=== PATIENT | male | born 1960 | race Caucasian/White ===

== ENCOUNTER 2022-08-18 11:16 | Emergency (ER) | payer MEDICARE, MEDICAID, SELFPAY ==
[2022-08-18 11:28] VITALS: BP 143/78; PULSE 110; RESP 15; TEMP 37.2; O2SAT 93; BMI 37.6
--- NOTE | 2022-08-18 11:58 | XRR_ITS ---
PROCEDURE INFORMATION: Exam: XR Chest Exam date and time: 08/18/2022 12:32 PM Age: 61 years old Clinical indication: Cough and dyspnea; Additional info: Dyspnea/cough TECHNIQUE: Imaging protocol: Radiologic exam of the chest. Views: 1 view. COMPARISON: No relevant prior studies available. FINDINGS: Tubes, catheters and devices: Single lead pacemaker. Lungs: Unremarkable. No consolidation. Pleural spaces: Costophrenic angles are not well seen secondary to a large amount of overlying soft tissue in this patient and pleural effusions can not be excluded. Heart/Mediastinum: Unremarkable. No cardiomegaly. Bones/joints: Unremarkable. XR/XR chest 1V portable [id number] IMPRESSION: No evidence for acute cardiopulmonary disease.
[2022-08-18 12:34] VITALS: BP 114/82; PULSE 107; O2SAT 96
--- NOTE | 2022-08-18 12:43 | W.ED.MALEGU ---
HPI - Male Genitourinary General: Chief complaint: Urogenital-Male Stated complaint: Covid Exposure, N/V, Abd pain Time Seen by Provider: 08/18/22 11:58 Source: patient Mode of arrival: ambulatory History of Present Illness: 59-year-old male presents emergency room with difficulty urinating. This been going on for the last 2 days difficulty starting urine difficulty seeing his bladder with some dysuria as well. No fever sweats chills no hematuria. Incidentally patient also recently was exposed to COVID he has not had any cough or shortness of breath no anosmia. MD Complaint: dysuria Onset (ago): day(s) (2) Duration: constant Severity: moderate Relieving factors: none Exacerbating factors: none Associated symptoms: Deny discharge, dysuria, fevers/chills, hematuria, nausea, rash, swelling, urinary incontinence, urinary retention, mass or vomiting Review of Systems Const: Denies: fever(s), chills, body aches, change in appetite, fatigue or malaise ENMT: Denies: throat pain, ear or mastoid pain, nasal discharge or nasal congestion Card: Denies: chest pain, edema, dyspnea on exertion or orthopnea Resp: Denies: dyspnea, productive cough or non-productive cough GI: Denies: nausea or vomiting : Denies: dysuria, urinary incontinence or hematuria Skin/Breast: Denies: rash or pruritus PFSH ED PFSH: Medical History Anticoagulation adequate with anticoagulant therapy Cardiomyopathy CHF (congestive heart failure) Diabetes DVT (deep venous thrombosis) Dyslipidemia NAKUL (obstructive sleep apnea) Surgical History S/P ICD (internal cardiac defibrillator) procedure Family History Father Stroke CAD (coronary artery disease) Sister Stroke Brother Stroke Other Hypertension Social History Smoking and tobacco status: never smoked Alcohol intake: never Substance/Drug Use: never Physical Exam Const: GENERAL APPEARANCE: cooperative and comfortable ORIENTATION/CONSCIOUSNESS: Yes awake, Yes oriented to person, Yes oriented to place and Yes oriented to time HENMT: COMMON NORMALS: normocephalic, atraumatic and hearing grossly normal bilaterally HEAD & SCALP: normocephalic and atraumatic Resp: COMMON NORMALS: normal respiratory effort, No retractions, No use of accessory muscles and clear to auscultation bilaterally AUSCULTATION: clear to auscultation bilaterally Cardio: COMMON NORMALS: regular rate, regular rhythm and No murmurs present (Cardio) RATE: regular rate RHYTHM: regular rhythm GI: COMMON NORMALS: Soft to palpation and No hepatosplenomegaly present AUSCULTATION: Yes normoactive bowel sounds PALPATION: Yes Soft to palpation, No Tenderness to palpation present (GI), No Guarding due to palpation present (GI) and Yes No hepatosplenomegaly present Extremity: COMMON NORMALS: normal to inspection, capillary refill normal, no clubbing, cyanosis or edema, no calf tenderness and no pedal edema Neuro: SENSORIUM/ORIENTATION: Yes oriented to person, Yes oriented to place and Yes oriented to time Skin: COMMON NORMALS: no rashes or lesions noted GENERAL SKIN EXAM: no rashes or lesions noted Course Vital Signs: Vital signs: Vital Signs Temperature 99.0 F 08/18/22 11:28 Pulse Rate 105 H 08/18/22 13:58 Respiratory Rate 15 08/18/22 11:28 Blood Pressure 162/81 08/18/22 13:58 Pulse Oximetry 91 08/18/22 13:58 Oxygen Delivery Me thod Room Air 08/18/22 11:28 MDM - Male Medical Decision Making Cystitis. No respiratory compromise discharge home and follow-up with COVID results when available start on Bactrim DS twice daily for 10 days Medical Records I reviewed the patient's medical records. Lab Data I reviewed the patient's lab results. 08/18/22 12:52 08/18/22 12:52 Radiology Impressions Chest X-Ray 08/18/22 11:58 IMPRESSION: No evidence for acute cardiopulmonary disease. Laboratory Results WBC 18.1 10^3/uL (4.0-10.0) H 08/18/22 12:52 RBC 5.04 10^6/uL (4.1-5.3) 08/18/22 12:52 Hgb 13.9 g/dL (11.7-16.6) 08/18/22 12:52 Hct 43.8 % (42.0-52.0) 08/18/22 12:52 MCV 86.9 fl (80-94) 08/18/22 12:52 MCH 27.6 pg (28.0-34.0) L 08/18/22 12:52 MCHC 31.7 g/dL (30.0-36.0) 08/18/22 12:52 RDW 15.1 % (12.1-15.1) 08/18/22 12:52 Plt Count 153 10^3/cmm (130-400) 08/18/22 12:52 MPV 10.3 fL (7.4-10.4) 08/18/22 12:52 Neut % (Auto) 82.6 % 08/18/22 12:52 Lymph % (Auto) 6.5 % 08/18/22 12:52 [place] % (Auto) 10.1 % 08/18/22 12:52 Eos % (Auto) 0.0 % 08/18/22 12:52 Baso % (Auto) 0.2 % 08/18/22 12:52 Neut # (Auto) 14.96 10^3/uL (1.8-7.7) H 08/18/22 12:52 Lymph # (Auto) 1.2 10^3/uL (0.8-4.8) 08/18/22 12:52 [place] # (Auto) 1.8 10^3/uL (0.2-0.9) H 08/18/22 12:52 Eos # (Auto) 0.0 10^3/uL (0.0-0.8) 08/18/22 12:52 Baso # (Auto) 0.0 10^3/uL (0.0-0.1) 08/18/22 12:52 Nucleated RBC % (auto) 0 % 08/18/22 12:52 Nucleated RBCs # 0.0 /100WBC 08/18/22 12:52 Sodium 129 mmol/L (136-145) L 08/18/22 12:52 Potassium 3.8 mmol/L (3.5-5.1) 08/18/22 12:52 Chloride 92 mmol/L (98-107) L 08/18/22 12:52 Carbon Dioxide 22 mmol/L (22-29) 08/18/22 12:52 Anion Gap 18.8 (5-19) 08/18/22 12:52 BUN 32 mg/dL (8-23) H 08/18/22 12:52 Creatinine 1.5 mg/dL (0.7-1.2) H 08/18/22 12:52 GFR Calculation 47.4 mL/min (90-130) L 08/18/22 12:52 Glucose 231 mg/dL (65-115) H 08/18/22 12:52 Calculated Osmolality 282 mOsm/kg (285-295) L 08/18/22 12:52 Calcium 9.8 mg/dL (8.5-10.5) 08/18/22 12:52 Urine Color Yellow (Yellow) 08/18/22 12:15 Urine Appearance Hazy (CLEAR) A 08/18/22 12:15 Urine pH 5 (5-7) 08/18/22 12:15 Ur Specific [place] 1.010 (1.005-1.030) 08/18/22 12:15 Urine Protein 2+ (Negative) H 08/18/22 12:15 Urine Glucose (UA) 4+ (Normal) H 08/18/22 12:15 Urine Ketones 1+ (Negative) H 08/18/22 12:15 Urine Blood 3+ (Negative) H 08/18/22 12:15 Urine Nitrate Negative (Negative) 08/18/22 12:15 Urine Bilirubin Neg (Negative) 08/18/22 12:15 Urine Urobilinogen Norm mg/dL (Negative) 08/18/22 12:15 Ur Leukocyte Esterase 1+ (Negative) H 08/18/22 12:15 Urine RBC 10-15 /hpf (0-2) H 08/18/22 12:15 Urine WBC 40-55 /hpf (0-5) H 08/18/22 12:15 Ur Squamous Epith Cells 5-10 /hpf (0-5) H 08/18/22 12:15 Amorphous Sediment Not Reportable 08/18/22 12:15 Urine Bacteria 2+ /hpf (NONE) H 08/18/22 12:15 Discharge Plan Discharge Patient Disposition: Home Clinical Impression: Cystitis Condition: Stable Prescriptions: New Bactrim DS 800-160 mg tablet 1 tab PO BID 10 Days Qty: 20 0RF No Action Jardiance 25 mg tablet 25 mg PO DAILY insulin aspart U-100 [Novolog U-100 Insulin aspart] 100 unit/mL solution 60 unit SUBCUT TID Tresiba U-100 Insulin 100 unit/mL solution 100 unit SUBCUT DAILY Trulicity 1.5 mg/0.5 mL pen injector 1.5 mg SUBCUT .WEEKLY atorvastatin 40 mg tablet 40 mg PO DAILY spironolactone 25 mg tablet 25 mg PO DAILY citalopram 20 mg tablet 20 mg PO DAILY allopurinol 100 mg tablet 100 mg PO DAILY Xarelto 20 mg tablet 20 mg PO DAILY terazosin 1 mg capsule 1 mg PO DAILY furosemide 40 mg tablet 80 mg PO DAILY Entresto 97-103 mg tablet 1 tab PO BID Qty: 120 2RF Discharge Orders: Discharge ED (Routine); Ordered 08/18/22 Ordered By: Anthony Lau Referrals: Rochelle Rodriges MD [Primary Care Provider] - Discharge Diet: Usual diet Discharge Activity: Resume usual activity Patient Instructions: Urinary Tract Infection in Men (ED), Opioid Safety, Pain Management Coding Level of Care Code 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
[2022-08-18 12:50] LABS: Add Urine Microscopic? YES; Bilirubin Urine Neg (Negative); Blood Urine 3+ (Negative); Glucose Urine UA 4+ (Normal); Ketones Urine 1+ (Negative); Leukocyte Esterase Urine 1+ (Negative); Nitrate Urine Negative (Negative); Protein Urine 2+ (Negative); Urine Appearance Hazy (CLEAR); Urine Color Yellow (Yellow); Urobilinogen Urine Norm (Negative); pH Urine 5 (5-7)
[2022-08-18 12:52] LABS: WBC Urine 40-55 /hpf (0-5)
[2022-08-18 12:54] LABS: Add Urine Culture? Yes; Bacteria Urine 2+ /hpf
[2022-08-18 13:02] LABS: Basophils % 0.2 %; Hematocrit 43.8 % (42.0-52.0); Hemoglobin 13.9 g/dL (11.7-16.6); Lymphocytes # 1.2 10^3/uL (0.8-4.8); Lymphocytes % 6.5 %; Mean Corpuscular HGB Conc 31.7 g/dL (30.0-36.0); Mean Corpuscular Hemoglobin 27.6 pg (28.0-34.0); Mean Corpuscular Volume 86.9 fl (80-94); Mean Platelet Volume 10.3 fL (7.4-10.4); Monocytes # 1.8 10^3/uL (0.2-0.9); Monocytes % 10.1 %; Neutrophils # 14.96 10^3/uL (1.8-7.7); Neutrophils % 82.6 %; Nucleated Red Blood Cells % 0 %; Platelet Count 153 10^3/cmm (130-400); Red Blood Count 5.04 10^6/uL (4.1-5.3); Red Cell Distribution Width 15.1 % (12.1-15.1); White Blood Count 18.1 10^3/uL (4.0-10.0)
[2022-08-18 13:03] VITALS: BP 131/71; PULSE 103; O2SAT 91
[2022-08-18] MEDS: cefTRIAXone 1,000 MG in sodium chloride 0.9% (plus) 50 ML 100 MG IV (13:12)
[2022-08-18 13:21] LABS: Anion Gap 18.8 (5-19); Blood Urea Nitrogen 32 mg/dL (8-23); Calcium 9.8 mg/dL (8.5-10.5); Carbon Dioxide 22 mmol/L (22-29); Chloride 92 mmol/L (98-107); Glomerular Filtration Rate 47.4 mL/min (90-130); Glucose 231 mg/dL (65-115); Osmolality Calculated 282 mOsm/kg (285-295); Potassium 3.8 mmol/L (3.5-5.1); Sodium 129 mmol/L (136-145)
[2022-08-18 13:58] VITALS: BP 162/81; PULSE 105; O2SAT 91
[2022-08-18 14:19] LABS: Adenovirus Not Detected (NOT DETECT); Chlamydia Pneumoniae Not Detected (NOT DETECT); Coronavirus 229E,HKU1,NL63,OC4 Not Detected (NOT DETECT); Human Metapneumovirus Not Detected (NOT DETECT); Human Rhinovirus/Enterovirus Not Detected (NOT DETECT); Influenza A Not Detected (NOT DETECT); Influenza A H1 Not Detected (NOT DETECT); Influenza A H1-2009 Not Detected (NOT DETECT); Influenza A H3 Not Detected (NOT DETECT); Influenza B Not Detected (NOT DETECT); Mycoplasma Pneumoniae Not Detected (NOT DETECT); Parainfluenza Virus Type 1 Not Detected (NOT DETECT); Parainfluenza Virus Type 2 Not Detected (NOT DETECT); Parainfluenza Virus Type 3 Not Detected (NOT DETECT); Parainfluenza Virus Type 4 Not Detected (NOT DETECT); Respiratory Syncytial Virus A Not Detected (NOT DETECT); Respiratory Syncytial Virus B Not Detected (NOT DETECT); SARS-COV-2 Not Detected (NOT DETECT)
== END 2022-08-18 14:00 | disposition home or self-care (01) ==
PROVIDERS: Emergency Provider Family Medicine; PCP Internal Medicine
DX: N30.90 Cystitis, unspecified without hematuria (principal); Z79.4 Long term (current) use of insulin; Z79.85 Long-term (current) use of injectable non-insulin antidiabetic drugs; I50.9 Heart failure, unspecified; E11.9 Type 2 diabetes mellitus without complications; E78.5 Hyperlipidemia, unspecified; Z20.822 Contact with and (suspected) exposure to COVID-19
CPT/HCPCS: 36415; 51798; 71045; 80048; 81001; 85025; 87077; 87086; 87186; 87635; 96365; 99284; J0696

== ENCOUNTER 2022-08-22 06:46 | Emergency (ER) | payer MEDICARE, MEDICAID, SELFPAY ==
[2022-08-22 06:55] VITALS: BP 111/77; PULSE 66; RESP 17; TEMP 36.7; O2SAT 98; BMI 37.6
--- NOTE | 2022-08-22 06:59 | W.ED.GENADLT ---
HPI - General Adult General: Chief complaint: Urogenital-Male Stated complaint: kidney pain Time Seen by Provider: 08/22/22 06:47 Source: patient Mode of arrival: ambulatory History of Present Illness: 59-year-old male presents emergency room with complaints of difficulty with urination and urinary dribbling. Does not feel like he can empty his bladder completely was him several days ago use found to have a UTI and he was started on Bactrim culture report came back and it is resistant to Bactrim. Patient states he has dysuria urgency and frequency with dribbling with small amounts of urine. No hematuria no fever Onset (ago): day(s) Relieving factors: none Exacerbating factors: none Associated symptoms: Deny chest pain, confusion, cough, diaphoresis, decreased appetite, dyspnea, fevers/chills, headache(s), malaise, nausea, rash, palpitations, seizures, short of breath, syncope, vomiting or weakness Treatments prior to arrival: none Review of Systems Const: Denies: fever(s), chills, malaise or diaphoresis ENMT: Denies: throat pain, ear or mastoid pain, nasal discharge or nasal congestion Card: Denies: chest pain, palpitations or syncope Resp: Denies: dyspnea GI: Denies: abdominal pain, nausea or vomiting : Reports: dysuria, urinary frequency and urinary urgency; Denies: flank pain Skin/Breast: Denies: rash Neuro: Denies: headache(s) or confusion PFS ED PFSH: Medical History Anticoagulation adequate with anticoagulant therapy Cardiomyopathy CHF (congestive heart failure) Diabetes DVT (deep venous thrombosis) Dyslipidemia NAKUL (obstructive sleep apnea) Surgical History S/P ICD (internal cardiac defibrillator) procedure Family History Father Stroke CAD (coronary artery disease) Sister Stroke Brother Stroke Other Hypertension Social History Smoking and tobacco status: never smoked Alcohol intake: never Substance/Drug Use: never Physical Exam Const: GENERAL APPEARANCE: cooperative and comfortable ORIENTATION/CONSCIOUSNESS: Yes awake, Yes oriented to person, Yes oriented to place and Yes oriented to time HENMT: COMMON NORMALS: normocephalic, atraumatic and hearing grossly normal bilaterally HEAD & SCALP: normocephalic and atraumatic Resp: COMMON NORMALS: normal respiratory effort, No retractions, No use of accessory muscles and clear to auscultation bilaterally AUSCULTATION: clear to auscultation bilaterally Cardio: COMMON NORMALS: regular rate, regular rhythm and No murmurs present (Cardio) RATE: regular rate RHYTHM: regular rhythm GI: COMMON NORMALS: Soft to palpation and No hepatosplenomegaly present AUSCULTATION: Yes normoactive bowel sounds PALPATION: Yes Soft to palpation, No Tenderness to palpation present (GI), No Guarding due to palpation present (GI) and Yes No hepatosplenomegaly present Extremity: COMMON NORMALS: normal to inspection, capillary refill normal, no clubbing, cyanosis or edema, no calf tenderness and no pedal edema Neuro: SENSORIUM/ORIENTATION: Yes oriented to person, Yes oriented to place and Yes oriented to time Skin: COMMON NORMALS: no rashes or lesions noted GENERAL SKIN EXAM: no rashes or lesions noted Course Vital Signs: Vital signs: Vital Signs Temperature 98.1 F 08/22/22 06:55 Pulse Rate 97 08/22/22 10:22 Respiratory Rate 16 08/22/22 10:22 Blood Pressure 112/73 08/22/22 10:22 Pulse Oximetry 97 08/22/22 10:22 Oxygen Delivery Me thod Room Air 08/22/22 06:55 MDM - General Adult Medical Decision Making Bladder scan 820 in the bladder. A Mathew placed significant amount of output matching the bladder scan patient also had marked relief of his symptoms. We will change him to Cipro which the E. coli on the culture done previously was sensitive to. We will add tamsulosin 1 have him follow-up with his primary care doctor in a week patient discharged home with a urine leg bag if he has any worsening or change symptoms return Medical Records I reviewed the patient's medical records. Lab Data I reviewed the patient's lab results. 08/22/22 07:31 08/22/22 07:31 Laboratory Results WBC 13.5 10^3/uL (4.0-10.0) H 08/22/22 07:31 RBC 4.32 10^6/uL (4.1-5.3) 08/22/22 07:31 Hgb 12.4 g/dL (11.7-16.6) 08/22/22 07:31 Hct 37.6 % (42.0-52.0) L 08/22/22 07:31 MCV 87.0 fl (80-94) 08/22/22 07:31 MCH 28.7 pg (28.0-34.0) 08/22/22 07:31 MCHC 33.0 g/dL (30.0-36.0) 08/22/22 07:31 RDW 15.7 % (12.1-15.1) H 08/22/22 07:31 Plt Count 197 10^3/cmm (130-400) 08/22/22 07:31 MPV 10.9 fL (7.4-10.4) H 08/22/22 07:31 Neut % (Auto) 76.2 % 08/22/22 07:31 Lymph % (Auto) 11.8 % 08/22/22 07:31 [place] % (Auto) 9.0 % 08/22/22 07:31 Eos % (Auto) 0.5 % 08/22/22 07:31 Baso % (Auto) 0.3 % 08/22/22 07:31 Neut # (Auto) 10.25 10^3/uL (1.8-7.7) H 08/22/22 07:31 Lymph # (Auto) 1.6 10^3/uL (0.8-4.8) 08/22/22 07:31 [place] # (Auto) 1.2 10^3/uL (0.2-0.9) H 08/22/22 07:31 Eos # (Auto) 0.1 10^3/uL (0.0-0.8) 08/22/22 07:31 Baso # (Auto) 0.0 10^3/uL (0.0-0.1) 08/22/22 07:31 Nucleated RBC % (auto) 0 % 08/22/22 07:31 Nucleated RBCs # 0.0 /100WBC 08/22/22 07:31 Sodium 129 mmol/L (136-145) L 08/22/22 07:31 Potassium 3.2 mmol/L (3.5-5.1) L 08/22/22 07:31 Chloride 95 mmol/L (98-107) L 08/22/22 07:31 Carbon Dioxide 18 mmol/L (22-29) L 08/22/22 07:31 Anion Gap 19.2 (5-19) H 08/22/22 07:31 BUN 64 mg/dL (8-23) H 08/22/22 07:31 Creatinine 2.1 mg/dL (0.7-1.2) H 08/22/22 07:31 GFR Calculation 32.2 mL/min (90-130) L 08/22/22 07:31 Glucose 252 mg/dL (65-115) H 08/22/22 07:31 Calculated Osmolality 295 mOsm/kg (285-295) 08/22/22 07:31 Calcium 8.7 mg/dL (8.5-10.5) 08/22/22 07:31 Urine Color Yellow (Yellow) 08/22/22 08:15 Urine Appearance Clear (CLEAR) 08/22/22 08:15 Urine pH 5 (5-7) 08/22/22 08:15 Ur Specific [place] 1.010 (1.005-1.030) 08/22/22 08:15 Urine Protein Neg (Negative) 08/22/22 08:15 Urine Glucose (UA) 4+ (Normal) H 08/22/22 08:15 Urine Ketones Negative (Negative) 08/22/22 08:15 Urine Blood 3+ (Negative) H 08/22/22 08:15 Urine Nitrate Negative (Negative) 08/22/22 08:15 Urine Bilirubin Neg (Negative) 08/22/22 08:15 Urine Urobilinogen Norm mg/dL (Negative) 08/22/22 08:15 Ur Leukocyte Esterase Negative (Negative) 08/22/22 08:15 Urine RBC 15-25 /hpf (0-2) H 08/22/22 08:15 Urine WBC 0-4 /hpf (0-5) H 08/22/22 08:15 Ur Squamous Epith Cells 0-4 /hpf (0-5) H 08/22/22 08:15 Amorphous Sediment Not Reportable 08/22/22 08:15 Urine Bacteria Trace /hpf (NONE) 08/22/22 08:15 Urine Mucus None /hpf 08/22/22 08:15 Discharge Plan Discharge Patient Disposition: Home Clinical Impression: Acute retention of urine, Cystitis, Prostatitis Condition: Stable Prescriptions: New Cipro 500 mg tablet 500 mg PO BID Qty: 14 0RF tamsulosin 0.4 mg capsule 0.4 mg PO DAILY Qty: 30 0RF Discontinued sulfamethoxazole-trimethoprim [Bactrim DS] 800-160 mg tablet 1 tab PO BID 10 Days Qty: 20 0RF No Action Jardiance 25 mg tablet 25 mg PO DAILY insulin aspart U-100 [Novolog U-100 Insulin aspart] 100 unit/mL solution 60 unit SUBCUT TID Tresiba U-100 Insulin 100 unit/mL solution 100 unit SUBCUT DAILY Trulicity 1.5 mg/0.5 mL pen injector 1.5 mg SUBCUT .WEEKLY atorvastatin 40 mg tablet 40 mg PO DAILY spironolactone 25 mg tablet 25 mg PO DAILY citalopram 20 mg tablet 20 mg PO DAILY allopurinol 100 mg tablet 100 mg PO DAILY Xarelto 20 mg tablet 20 mg PO DAILY terazosin 1 mg capsule 1 mg PO DAILY furosemide 40 mg tablet 80 mg PO DAILY Entresto 97-103 mg tablet 1 tab PO BID Qty: 120 2RF Discharge Orders: Discharge ED (Routine); Ordered 08/22/22 Ordered By: Anthony Lau Referrals: Rochelle Rodriges MD [Primary Care Provider] - Discharge Diet: Usual diet Discharge Activity: Increase activity as tolerated Patient Instructions: Opioid Safety, Pain Management Activity Restrictions/Additional Instructions: You were seen today for urinary retention and cystitis. Culture from your previous visit shows the bacteria to be resistant to the Bactrim. You should stop the Bactrim and start Cipro 501 twice daily for 7 days. The culture showed the bacteria was sensitive to this. You also found of significant urinary retention. Mathew catheter was placed recommend that you start on tamsulosin alone along with your terazosin. You should recheck with your primary care doctor in approximately 1 week to evaluate for removal of Mathew. 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
[2022-08-22 07:41] LABS: Basophils % 0.3 %; Eosinophils # 0.1 10^3/uL (0.0-0.8); Eosinophils % 0.5 %; Hematocrit 37.6 % (42.0-52.0); Hemoglobin 12.4 g/dL (11.7-16.6); Lymphocytes # 1.6 10^3/uL (0.8-4.8); Lymphocytes % 11.8 %; Mean Corpuscular Hemoglobin 28.7 pg (28.0-34.0); Mean Platelet Volume 10.9 fL (7.4-10.4); Monocytes # 1.2 10^3/uL (0.2-0.9); Neutrophils # 10.25 10^3/uL (1.8-7.7); Neutrophils % 76.2 %; Nucleated Red Blood Cells % 0 %; Platelet Count 197 10^3/cmm (130-400); Red Blood Count 4.32 10^6/uL (4.1-5.3); Red Cell Distribution Width 15.7 % (12.1-15.1); White Blood Count 13.5 10^3/uL (4.0-10.0)
[2022-08-22 08:01] LABS: Anion Gap 19.2 (5-19); Blood Urea Nitrogen 64 mg/dL (8-23); Calcium 8.7 mg/dL (8.5-10.5); Carbon Dioxide 18 mmol/L (22-29); Chloride 95 mmol/L (98-107); Glomerular Filtration Rate 32.2 mL/min (90-130); Glucose 252 mg/dL (65-115); Osmolality Calculated 295 mOsm/kg (285-295); Potassium 3.2 mmol/L (3.5-5.1); Sodium 129 mmol/L (136-145)
[2022-08-22 09:01] LABS: Urine Appearance Clear (CLEAR); Urine Color Yellow (Yellow); pH Urine 5 (5-7)
[2022-08-22 09:02] LABS: Add Urine Microscopic? YES; Bilirubin Urine Neg (Negative); Blood Urine 3+ (Negative); Glucose Urine UA 4+ (Normal); Ketones Urine Negative (Negative); Leukocyte Esterase Urine Negative (Negative); Nitrate Urine Negative (Negative); Protein Urine Neg (Negative); Urobilinogen Urine Norm (Negative)
[2022-08-22 09:07] LABS: Add Urine Culture? No; Bacteria Urine TRACE /hpf; RBC Urine 15-25 /hpf (0-2); Squamous Epithelial Cell Urine 0-4 /hpf (0-5); WBC Urine 0-4 /hpf (0-5)
[2022-08-22 10:22] VITALS: BP 112/73; PULSE 97; RESP 16; O2SAT 97
== END 2022-08-22 10:25 | disposition home or self-care (01) ==
PROVIDERS: Emergency Provider Family Medicine; PCP Internal Medicine
DX: N30.90 Cystitis, unspecified without hematuria (principal); R33.9 Retention of urine, unspecified; N41.9 Inflammatory disease of prostate, unspecified; Z79.4 Long term (current) use of insulin; Z79.85 Long-term (current) use of injectable non-insulin antidiabetic drugs; I50.9 Heart failure, unspecified; E11.9 Type 2 diabetes mellitus without complications; E78.5 Hyperlipidemia, unspecified; Z95.810 Presence of automatic (implantable) cardiac defibrillator
CPT/HCPCS: 36415; 51702; 51798; 80048; 81001; 85025; 99283

== ENCOUNTER 2023-03-02 04:08 | Emergency (ER) | payer MEDICARE, MEDICAID, SELFPAY ==
[2023-03-02 04:13] VITALS: BP 161/95; PULSE 94; RESP 22; TEMP 37.9; O2SAT 95; BMI 37.6
[2023-03-02 04:24] VITALS: BP 161/95; PULSE 94; RESP 22; O2SAT 95
--- NOTE | 2023-03-02 04:26 | ECG_ITS ---
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 Measurements Intervals [place] Rate: 95 P: -3 MI: 210 QRS: 24 QRSD: 113 T: 53 QT: 346 QTc: 436 Interpretive Statements SINUS RHYTHM WITH FIRST DEGREE AV BLOCK WITH OCCASIONAL VENTRICULAR PREMATURE COMPLEXES LOW QRS VOLTAGE IN PRECORDIAL LEADS [QRS DEFLECTION < 1.0 mV IN CHEST LEADS] ANTEROSEPTAL MYOCARDIAL INFARCTION , OF INDETERMINATE AGE [40+ ms Q WAVE IN V1-V4] Compared to ECG 07/07/2014 16:43:07 First degree AV block now present Low QRS voltage now present Myocardial infarct finding now present Sinus tachycardia no longer present T-wave abnormality no longer present Electronically Signed On 03-02-2023 16:23:26 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 [id number]
--- NOTE | 2023-03-02 04:27 | XRR_ITS ---
PROCEDURE INFORMATION: Exam: XR Chest Exam date and time: 03/02/2023 4:39 AM Age: 62 years old Clinical indication: Fever and shortness of breath; Prior surgery; Surgery date: 6+ months; Surgery type: Defibrillator; Patient HX: C/O SOB with fever. History of chf. TECHNIQUE: Imaging protocol: Radiologic exam of the chest. Views: 1 view. COMPARISON: CR (CHEST, ) 08/18/2022 12:32 PM FINDINGS: Tubes, catheters and devices: Right-sided pacing device. Lungs: Unremarkable. No consolidation. Pleural spaces: Unremarkable. No pleural effusion. No pneumothorax. Heart/Mediastinum: Cardiomegaly. Bones/joints: Unremarkable. Other findings: Mild congestion. XR/XR chest 1V portable [id number] IMPRESSION: Cardiomegaly with mild congestion
[2023-03-02 05:03] LABS: Basophils # 0.1 10^3/uL (0.0-0.1); Basophils % 0.4 %; Hematocrit 42.3 % (37-53); Lymphocytes # 1.9 10^3/uL (0.8-4.8); Lymphocytes % 16.5 %; Mean Corpuscular HGB Conc 32.6 g/dL (30-55); Mean Corpuscular Hemoglobin 27.1 pg (27-33); Mean Corpuscular Volume 82.9 fl (82-101); Mean Platelet Volume 10.6 fL (7.4-10.4); Monocytes # 0.9 10^3/uL (0.2-0.9); Neutrophils # 8.45 10^3/uL (1.8-7.7); Neutrophils % 74.7 %; Nucleated Red Blood Cells % 0 %; Platelet Count 209 10^3/cmm (157-399); Red Cell Distribution Width 15.9 % (12.1-15.1)
[2023-03-02] MEDS: sodium chloride 0.9% 1,000 ML 999 ML IV (05:04)
[2023-03-02 05:26] LABS: Influenza A by IFA negative (Negative); Influenza B by IFA negative (Negative); SARS Covid-2 Antigen negative (Negative)
[2023-03-02 05:32] LABS: Alanine Aminotransferase 16 U/L (0-41); Albumin Level 3.8 g/dL (3.5-5.2); Alkaline Phosphatase 91 U/L (40-130); Anion Gap 17.2 (5-19); Aspartate Amino Transferase 24 U/L (0-40); Blood Urea Nitrogen 32 mg/dL (8-23); Calcium 10.3 mg/dL (8.5-10.5); Carbon Dioxide 24 mmol/L (22-29); Chloride 91 mmol/L (98-107); Globulin 4.2 g/dL (1.3-4.6); Glomerular Filtration Rate 43.9 mL/min (90-130); Glucose 205 mg/dL (65-115); NT Pro B Type Natriuretic Pept 10746 pg/mL (0-125); Osmolality Calculated 279 mOsm/kg (285-295); Potassium 4.2 mmol/L (3.5-5.1); Sodium 128 mmol/L (136-145)
--- NOTE | 2023-03-02 05:45 | ED_ITS ---
HPI - COVID 2 General: Chief Complaint: COVID symptoms Stated Complaint: vomit, fever, diahr, 3 weeks sob Time Seen by Provider: 03/02/23 04:22 Triage information: Has fever, cough or shortness of breath . Exposure to COVID + person last 14 days History of Present Illness: 62-year-old male gentleman who says he h as been sick for about 2 weeks. 2 weeks ago, he had vomiting, diarrhea, cough, and fever. He seemed improved from this, for the past couple of days he has been sick again. He has had a cough with sputum production. He has been vomiting again. No diarrhea at this time. He has a history of heart failure, and diabetes. He notes multiple episodes of vomiting. He has had some shortness of breath, no chest discomfort. COVID 19 common symptoms: positive fever(s), chills, productive cough, dyspnea, body aches, headache(s), nausea and vomiting; negative diarrhea COVID 19 other sytmptoms: negative chest pain COVID Results: 2 SARS-CoV-2 Antigen (Rapid) negative (Negative) 03/02/23 04:47 SARS-CoV-2 (PCR) Not detected (NOT DETECT) 08/18/22 12:15 Coronavirus Type 229E (PCR) Not detected (NOT DETECT) 08/18/22 12:15 Review of Systems 2 Const: Reports: fever(s), chills and body aches Card: Denies: chest pain or palpitations Resp: Reports: dyspnea and productive cough GI: Reports: nausea and vomiting; Denies: abdominal pain or diarrhea Neuro: Reports: headache(s) PFS ED 2 PFSH: Medical History Anticoagulation adequate with anticoagulant therapy Dyslipidemia NAKUL (obstructive sleep apnea) CHF (congestive heart failure) Diabetes DVT (deep venous thrombosis) Cardiomyopathy Surgical History S/P ICD (internal cardiac defibrillator) procedure Family History Father Stroke CAD (coronary artery disease) Sister Stroke Brother Stroke Other Hypertension Social History Smoking and tobacco/nicotine status: never used tobacco/nicotine Alcohol intake: never Substance/Drug Use: never Physical Exam 2 Const: GENERAL APPEARANCE: cooperative and ill appearing (Mildly); not frail appearing HENMT: COMMON NORMALS: normocephalic, atraumatic and Normal external nose present HEAD & SCALP: normocephalic and atraumatic FACE & SINUS: normal facial exam and face symmetric NOSE: Normal external nose present Eye: COMMON NORMALS: Equal, round and reactive pupils present and EOMs intact bilaterally PUPIL: Yes Equal, round and reactive pupils present Neck/C-Spine: GENERAL: Yes trachea midline Chest: CHEST: Yes Symmetrical chest wall rise Resp: COMMON NORMALS: normal respiratory effort, No retractions, No use of accessory muscles and clear to auscultation bilaterally AUSCULTATION: clear to auscultation bilaterally Cardio: COMMON NORMALS: regular rate and regular rhythm RATE: regular rate RHYTHM: regular rhythm GI: COMMON NORMALS: Normal to inspection, nondistended, normoactive bowel sounds present Extremity: COMMON NORMALS: no pedal edema Neuro: CLIFF COMA SCALE: document GCS findings Cliff coma scale eye opening: Spontaneous Cliff coma scale verbal response: Orientated Trade coma scale motor response: Obey commands Trade coma scale total score: 15 S ENSORY EXAM: Yes extremities (intact) Psych: COMMON NORMALS: speech normal SPEECH: Yes normal speech Skin: COMMON NORMALS: no rashes or lesions noted GENERAL SKIN EXAM: no rashes or lesions noted Course 2 Vital Signs: Vital signs: Vital Signs Temperature 100.2 F H 03/02/23 04:13 Pulse Rate 89 03/02/23 06:28 Respiratory Rate 20 H 03/02/23 06:28 Blood Pressure 133/84 03/02/23 06:28 Pulse Oximetry 95 03/02/23 06:28 Oxygen Delivery Me thod Room Air 03/02/23 04:24 MDM - COVID Medical Decision Making 62-year-old male with a history of heart failure. He is 100.2 temperature, vomiting, and productive cough. His sodium is 128 which is baseline. His creatinine is 1.6 which is baseline. He has mild congestion on chest x-ray. His CBC is normal. Swabs for COVID and flu were negative. BNP is elevated. He is not in overt failure. Clinically he appears a bit dry. He is given 500 cc of fluid. Lab Data 03/02/23 04:49 03/02/23 04:49 Radiology Impressions Chest X-Ray 03/02/23 04:27 IMPRESSION: Cardiomegaly with mild congestion Laboratory Results WBC 11.30 10^3/uL (3.29-11.43) 03/02/23 04:49 RBC 5.10 10^6/uL (3.85-5.65) 03/02/23 04:49 Hgb 13.80 g/dL (11.27-16.99) 03/02/23 04:49 Hct 42.3 % (37-53) 03/02/23 04:49 MCV 82.9 fl (82-101) 03/02/23 04:49 MCH 27.1 pg (27-33) 03/02/23 04:49 MCHC 32.6 g/dL (30-55) 03/02/23 04:49 RDW 15.9 % (12.1-15.1) H 03/02/23 04:49 Plt Count 209 10^3/cmm (157-399) 03/02/23 04:49 MPV 10.6 fL (7.4-10.4) H 03/02/23 04:49 Neut % (Auto) 74.7 % 03/02/23 04:49 Lymph % (Auto) 16.5 % 03/02/23 04:49 [place] % (Auto) 8.0 % 03/02/23 04:49 Eos % (Auto) 0.0 % 03/02/23 04:49 Baso % (Auto) 0.4 % 03/02/23 04:49 Neut # (Auto) 8.45 10^3/uL (1.8-7.7) H 03/02/23 04:49 Lymph # (Auto) 1.9 10^3/uL (0.8-4.8) 03/02/23 04:49 [place] # (Auto) 0.9 10^3/uL (0.2-0.9) 03/02/23 04:49 Eos # (Auto) 0.0 10^3/uL (0.0-0.8) 03/02/23 04:49 Baso # (Auto) 0.1 10^3/uL (0.0-0.1) 03/02/23 04:49 Nucleated RBC % (auto) 0 % 03/02/23 04:49 Nucleated RBCs # 0.0 /100WBC 03/02/23 04:49 Sodium 128 mmol/L (136-145) L 03/02/23 04:49 Potassium 4.2 mmol/L (3.5-5.1) 03/02/23 04:49 Chloride 91 mmol/L (98-107) L 03/02/23 04:49 Carbon Dioxide 24 mmol/L (22-29) 03/02/23 04:49 Anion Gap 17.2 (5-19) 03/02/23 04:49 BUN 32 mg/dL (8-23) H 03/02/23 04:49 Creatinine 1.6 mg/dL (0.7-1.2) H 03/02/23 04:49 GFR Calculation 43.9 mL/min (90-130) L 03/02/23 04:49 Glucose 205 mg/dL (65-115) H 03/02/23 04:49 Calculated Osmolality 279 mOsm/kg (285-295) L 03/02/23 04:49 Calcium 10.3 mg/dL (8.5-10.5) 03/02/23 04:49 Total Bilirubin 1.0 mg/dL (0.15-1.2) 03/02/23 04:49 AST 24 U/L (0-40) 03/02/23 04:49 ALT 16 U/L (0-41) 03/02/23 04:49 Alkaline Phosphatase 91 U/L (40-130) 03/02/23 04:49 NT-Pro-B Natriuret Pep 56509 pg/mL (0-125) H 03/02/23 04:49 Total Protein 8.0 g/dL (6.6-8.7) 03/02/23 04:49 Albumin 3.8 g/dL (3.5-5.2) 03/02/23 04:49 Globulin 4.2 g/dL (1.3-4.6) 03/02/23 04:49 Influenza Type A Ag negative (Negative) 03/02/23 04:47 Influenza Type B Ag negative (Negative) 03/02/23 04:47 SARS-CoV-2 Ag (Rapid) negative (Negative) 03/02/23 04:47 2 SARS-CoV-2 Antigen (Rapid) negative (Negative) 03/02/23 04:47 SARS-CoV-2 (PCR) Not detected (NOT DETECT) 08/18/22 12:15 Coronavirus Type 229E (PCR) Not detected (NOT DETECT) 08/18/22 12:15 All radiology interpretation(s) finalized by discharge Discharge Plan Discharge Patient Disposition: Home Clinical Impression: Bronchitis Condition: Stable Prescriptions: New ondansetron 4 mg tablet,disintegrating 4 mg PO Q6H PRN (Reason: nausea and vomiting) Qty: 14 0RF doxycycline hyclate 100 mg tablet 100 mg PO BID 7 Days Qty: 14 0RF albuterol sulfate 90 mcg/actuation HFA aerosol inhaler 2 inh INHALATION Q4H PRN (Reason: shortness of breath or wheezing) Qty: 6.7 1RF No Action Jardiance 25 mg tablet 25 mg PO DAILY insulin aspart U-100 [Novolog U-100 Insulin aspart] 100 unit/mL solution 60 unit SUBCUT TID Tresiba U-100 Insulin 100 unit/mL solution 100 unit SUBCUT DAILY Trulicity 1.5 mg/0.5 mL pen injector 1.5 mg SUBCUT .WEEKLY atorvastatin 40 mg tablet 40 mg PO DAILY spironolactone 25 mg tablet 25 mg PO DAILY citalopram 20 mg tablet 20 mg PO DAILY allopurinol 100 mg tablet 100 mg PO DAILY Xarelto 20 mg tablet 20 mg PO DAILY terazosin 1 mg capsule 1 mg PO DAILY furosemide 40 mg tablet 80 mg PO DAILY Entresto 97-103 mg tablet 1 tab PO BID Qty: 120 2RF Cipro 500 mg tablet 500 mg PO BID Qty: 14 0RF tamsulosin 0.4 mg capsule 0.4 mg PO DAILY Qty: 30 0RF Discharge Orders: Discharge ED (Routine); Ordered 03/02/23 Ordered By: Manish Shen Referrals: Rochelle Rodriges MD [Primary Care Provider] - Patient Instructions: Acute Bronchitis (ED), Opioid Safety, Pain Management Activity Restrictions/Additional Instructions: Take nausea medication every 4 hours while awake for the first 48 hours whether you are nauseated or not. You may take it as needed following that. Liquids for the first 24 hours, then you may increase your diet as tolerated. Antibiotics as directed. Use the inhaler every 4 hours while awake also for the first 48 hours, then as needed following. Return for worsening shortness of breath despite treatment, inability to control fever, vomiting liquids or medications, other concerning symptoms. Coding Level of Care Code ED Gravity Prospecting Operator for Zechariah Vicente
[2023-03-02] MEDS: ondansetron 2 mg/ML SDV 2 mL 4 MG IVP (06:06)
[2023-03-02] MEDS: cefTRIAXone 1,000 MG in sodium chloride 0.9% (plus) 50 ML 100 MG IV (06:09)
[2023-03-02] MEDS: acetaminophen 500 mg Tablet 1000 MG PO (06:12)
--- NOTE | 2023-03-02 06:13 | PC.NURSE ---
Pt sent home with 4mg Zofran tab per Dr Shen's orders.
[2023-03-02 06:28] VITALS: BP 133/84; PULSE 89; RESP 20; O2SAT 95
== END 2023-03-02 06:29 | disposition home or self-care (01) ==
PROVIDERS: Emergency Provider Emergency Medicine; PCP Internal Medicine
DX: J40 Bronchitis, not specified as acute or chronic (principal); Z79.4 Long term (current) use of insulin; Z79.85 Long-term (current) use of injectable non-insulin antidiabetic drugs; Z11.52 Encounter for screening for COVID-19; I51.7 Cardiomegaly; E78.5 Hyperlipidemia, unspecified; I50.9 Heart failure, unspecified; I42.9 Cardiomyopathy, unspecified; Z95.810 Presence of automatic (implantable) cardiac defibrillator
CPT/HCPCS: 71045; 80053; 83880; 85025; 87426; 87804; 93005; 96365; 96375; 99285; J0696; J2405; J7030

== ENCOUNTER 2023-03-02 18:36 | Inpatient (IN) | payer MEDICARE, MEDICAID, SELFPAY ==
[2023-03-02] VITALS (8 sets, daily range): BP systolic 108–155; BP diastolic 67–99; PULSE 75–108; RESP 18–31; TEMP 37.4; O2SAT 92–99; BMI 37.6; BMI 38.6
--- NOTE | 2023-03-02 18:47 | ECG_ITS ---
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 Measurements Intervals [place] Rate: 110 P: -39 DC: 172 QRS: 35 QRSD: 113 T: 86 QT: 337 QTc: 458 Interpretive Statements SINUS TACHYCARDIA WITH OCCASIONAL VENTRICULAR PREMATURE COMPLEXES LOW QRS VOLTAGE IN PRECORDIAL LEADS [QRS DEFLECTION < 1.0 mV IN CHEST LEADS] ANTEROSEPTAL MYOCARDIAL INFARCTION , OF INDETERMINATE AGE [40+ ms Q WAVE IN V1-V4] Compared to ECG 03/02/2023 04:43:56 Ventricular premature complex(es) now present Sinus rhythm no longer present First degree AV block no longer present Myocardial infarct finding still present Electronically Signed On 03-03-2023 10:51:29 CRIMPING PRESS OPERATOR by Santiago Walden M.D. [id number] f
--- NOTE | 2023-03-02 18:50 | XRR_ITS ---
PROCEDURE INFORMATION: Exam: XR Chest Exam date and time: 03/02/2023 7:06 PM Age: 62 years old Clinical indication: Pain; Angina pectoris; Patient HX: Cough; Congestion; Fever; Defib activation x 3; Recent bronchitis diagnosis TECHNIQUE: Imaging protocol: Radiologic exam of the chest. Views: 1 view. COMPARISON: CR (CHEST, ) 03/02/2023 4:39 AM FINDINGS: Lungs: Unremarkable. No consolidation. Pleural spaces: Unremarkable. No pleural effusion. No pneumothorax. Heart/Mediastinum: Unremarkable. No cardiomegaly. Right-sided AICD device redemonstrated. Bones/joints: Unremarkable. XR/XR chest 1V portable [id number] IMPRESSION: No acute findings.
[2023-03-02 19:17] LABS: Basophils % 0.3 %; Hematocrit 36.7 % (37-53); Lymphocytes # 0.6 10^3/uL (0.8-4.8); Lymphocytes % 4.9 %; Mean Corpuscular HGB Conc 31.9 g/dL (30-55); Mean Corpuscular Hemoglobin 26.9 pg (27-33); Mean Corpuscular Volume 84.4 fl (82-101); Mean Platelet Volume 10.4 fL (7.4-10.4); Monocytes # 0.9 10^3/uL (0.2-0.9); Monocytes % 7.7 %; Neutrophils # 9.74 10^3/uL (1.8-7.7); Neutrophils % 86.6 %; Nucleated Red Blood Cells % 0 %; Platelet Count 172 10^3/cmm (157-399); Red Blood Count 4.35 10^6/uL (3.85-5.65); Red Cell Distribution Width 16.2 % (12.1-15.1); White Blood Count 11.25 10^3/uL (3.29-11.43)
[2023-03-02 19:22] LABS: Add Urine Microscopic? YES; Bilirubin Urine Neg (Negative); Blood Urine 3+ (Negative); Glucose Urine UA 4+ (Normal); Ketones Urine 1+ (Negative); Leukocyte Esterase Urine Negative (Negative); Nitrate Urine Negative (Negative); Protein Urine 2+ (Negative); Specific Gravity, Urine 1.005 (1.005-1.030); Urine Appearance Clear (CLEAR); Urine Color Yellow (Yellow); Urobilinogen Urine Norm (Negative); pH Urine 5 (5-7)
[2023-03-02 19:23] LABS: Bacteria Urine 1+ /hpf; Mucus Urine TRACE /hpf; Squamous Epithelial Cell Urine 0-4 /hpf (0-5); WBC Urine 15-25 /hpf (0-5)
[2023-03-02 19:42] LABS: Troponin(5th) Baseline 84 ng/L (0-15)
[2023-03-02 19:52] LABS: Alanine Aminotransferase 21 U/L (0-41); Albumin Level 3.5 g/dL (3.5-5.2); Alkaline Phosphatase 79 U/L (40-130); Anion Gap 19.4 (5-19); Aspartate Amino Transferase 25 U/L (0-40); Blood Urea Nitrogen 36 mg/dL (8-23); Calcium 8.7 mg/dL (8.5-10.5); Carbon Dioxide 20 mmol/L (22-29); Chloride 91 mmol/L (98-107); Creatinine Clr Calc Pharmacy 67.1383; Globulin 2.9 g/dL (1.3-4.6); Glomerular Filtration Rate 47.3 mL/min (90-130); Magnesium 1.9 mg/dL (1.7-2.3); NT Pro B Type Natriuretic Pept 8158 pg/mL (0-125); Osmolality Calculated 294 mOsm/kg (285-295); Phosphorus 2.6 mg/dL (2.5-4.5); Potassium 4.4 mmol/L (3.5-5.1); Sodium 126 mmol/L (136-145); Thyroid Stimulating Hormone 1.12 uIU/mL (0.27-4.20); Total Protein 6.4 g/dL (6.6-8.7)
[2023-03-02 19:56] LABS: Glucose 517 mg/dL (65-115)
[2023-03-02] MEDS: piperacillin-tazobactam 4.5 GM in sodium chloride 0.9% (plus) 50 ML IV (19:56)
[2023-03-02 20:09] LABS: Ketone (Acetest) Serum Negative (Negative)
[2023-03-02 20:13] LABS: ABG PCO2 35.1 mmHg (35-45); ABG PH Result 7.43 (7.35-7.45); Arterial Blood Gas Hematocrit 37.3 % (42-52); Base Excess ABG -0.4 mmol/L (-2.0-2.0); Blood Gas Allen Test Pos; Blood Gas Operator Identificat MONRO; Blood Gas Sample Site Radial, left; Blood Gas Sample Type Arterial; HCO3 ABG 23.5 mmol/L (22-26); Oxygen Device NC; PO2 FiO2 Ratio Arterial Blood 0
[2023-03-02] MEDS: insulin regular-human 100 units/1 mL 8 UNIT IVP (20:20)
[2023-03-02] MEDS: sodium chloride 0.9% 1,000 ML 999 ML IV (20:23)
[2023-03-02 20:27] LABS: Glucose Point of Care 496 mg/dL (70-110)
--- NOTE | 2023-03-02 20:34 | ED_ITS ---
HPI - Arrhythmia/Palpitations 2 General: Chief Complaint: Arrhythmia/Palpitations Stated Complaint: CHEST PAIN Time Seen by Provider: 03/02/23 18:37 History of Present Illness: 62-year-old male patient who was seen by me early in the morning. At that point, he had fever, cough, with some sputum production. He swabbed negative for COVID and flu, chest x-ray was clear of infiltrate. He was placed on doxycycline because he had been ill for going on 2 weeks with some sputum production. He had received IV Rocephin here. He had also been vomiting, and received Zofran. He reports this evening that he had been feeling better throughout the day, but tonight began to feel worse again. He had not vomited anymore. He was holding down liquids. He went to use the restroom, and felt an intense kick in his chest and head. This was followed by a second. He assumed at this point that his defibrillator had gone off, which has never happened. It was placed a few years ago in [place] due to history of heart failure and atrial fibrillation. He admits to not taking his insulin today, as he did not feel well. He was found to have a sugar that was high. Associated symptoms: Reports nausea and vomiting (Not today) Review of Systems 2 Const: Reports: fever(s), chills and body aches ENMT: Denies: throat pain Card: Reports: palpitations; Denies: chest pain Resp: Reports: dyspnea and productive cough GI: Reports: nausea and vomiting (Not today) Neuro: Reports: headache(s) [facility] ED 2 PFSH: Medical History Anticoagulation adequate with anticoagulant therapy Dyslipidemia NAKUL (obstructive sleep apnea) CHF (congestive heart failure) Diabetes DVT (deep venous thrombosis) Cardiomyopathy Surgical History S/P ICD (internal cardiac defibrillator) procedure Family History Father Stroke CAD (coronary artery disease) Sister Stroke Brother Stroke Other Hypertension Social History Smoking and tobacco/nicotine status: never used tobacco/nicotine Alcohol intake: never Substance/Drug Use: never Physical Exam 2 Const: COMMON NORMALS: no acute distress GENERAL APPEARANCE: ill appearing; not frail appearing HENMT: COMMON NORMALS: normocephalic, atraumatic and Normal external nose present HEAD & SCALP: normocephalic and atraumatic FACE & SINUS: normal facial exam and face symmetric NOSE: Normal external nose present Eye: COMMON NORMALS: Equal, round and reactive pupils present and EOMs intact bilaterally PUPIL: Yes Equal, round and reactive pupils present Neck/C-Spine: GENERAL: Yes trachea midline Chest: CHEST: Yes Symmetrical chest wall rise Resp: COMMON NORMALS: normal respiratory effort, No retractions, No use of accessory muscles and clear to auscultation bilaterally AUSCULTATION: clear to auscultation bilaterally Cardio: COMMON NORMALS: regular rate and regular rhythm RATE: regular rate RHYTHM: regular rhythm GI: COMMON NORMALS: Normal to inspection, nondistended, normoactive bowel sounds present Extremity: COMMON NORMALS: no pedal edema GENERAL: Yes edema (Minimal) Neuro: CLIFF COMA SCALE: document GCS findings Coleman coma scale eye opening: Spontaneous Coleman coma scale verbal response: Orientated Coleman coma scale motor response: Obey commands Cliff coma scale total score: 15 S ENSORY EXAM: Yes extremities (intact) Psych: COMMON NORMALS: speech normal SPEECH: Yes normal speech Skin: COMMON NORMALS: no rashes or lesions noted GENERAL SKIN EXAM: no rashes or lesions noted Course 2 Vital Signs: Vital signs: Vital Signs Temperature 99.3 F 03/02/23 18:38 Pulse Rate 93 03/02/23 19:54 Respiratory Rate 18 03/02/23 19:54 Blood Pressure 132/76 03/02/23 19:54 Pulse Oximetry 94 03/02/23 19:54 Oxygen Delivery Me thod Room Air 03/02/23 19:24 MDM - Arrhythmia/Palpitations Medical Decision Making 62-year-old male who was cardioverted twice at home. His pacer defib was interpreted, and found to have cardioverted him after a distinct period of atrial fibrillation with rapid ventricular rate which was not able to be overdrive paced. He received 2 shocks, the final 1 cardioverting him into a sinus rhythm. He remains in sinus rhythm here. His CBC is essentially normal. He has a blood sugar of 517 with pseudohyponatremia. His creatinine is at baseline. His bicarbonate is 20. His serum ketones are negative. His blood pH is 7.43. His anion gap is only 19. His chest x-ray is read as nonacute, but there may be a early left upper lobe organizing infiltrate present. His temperature still 99.3. He has received IV Zosyn and vancomycin. This is after blood cultures. He will be placed on the CSU floor. Hospitalist is aware. As he has not had arrhythmia here, antiarrhythmics were not infused in the ER. The patient was given a liter bolus of fluid for hyperglycemia and potential sepsis. Obviously 30 mL/kg bolus was not indicated, due to history of heart failure. His BNP is already 8000. Lab Data 03/02/23 19:10 03/02/23 19:10 Radiology Impressions Chest X-Ray 03/02/23 18:50 IMPRESSION: No acute findings. Laboratory Results WBC 11.25 10^3/uL (3.29-11.43) 03/02/23 19:10 RBC 4.35 10^6/uL (3.85-5.65) 03/02/23 19:10 Hgb 11.70 g/dL (11.27-16.99) 03/02/23 19:10 Hct 36.7 % (37-53) L 03/02/23 19:10 MCV 84.4 fl (82-101) 03/02/23 19:10 MCH 26.9 pg (27-33) L 03/02/23 19:10 MCHC 31.9 g/dL (30-55) 03/02/23 19:10 RDW 16.2 % (12.1-15.1) H 03/02/23 19:10 Plt Count 172 10^3/cmm (157-399) 03/02/23 19:10 MPV 10.4 fL (7.4-10.4) 03/02/23 19:10 Neut % (Auto) 86.6 % 03/02/23 19:10 Lymph % (Auto) 4.9 % 03/02/23 19:10 [place] % (Auto) 7.7 % 03/02/23 19:10 Eos % (Auto) 0.0 % 03/02/23 19:10 Baso % (Auto) 0.3 % 03/02/23 19:10 Neut # (Auto) 9.74 10^3/uL (1.8-7.7) H 03/02/23 19:10 Lymph # (Auto) 0.6 10^3/uL (0.8-4.8) L 03/02/23 19:10 [place] # (Auto) 0.9 10^3/uL (0.2-0.9) 03/02/23 19:10 Eos # (Auto) 0.0 10^3/uL (0.0-0.8) 03/02/23 19:10 Baso # (Auto) 0.0 10^3/uL (0.0-0.1) 03/02/23 19:10 Nucleated RBC % (auto) 0 % 03/02/23 19:10 Nucleated RBCs # 0.0 /100WBC 03/02/23 19:10 Specimen Type Arterial 03/02/23 19:59 Sample Site Radial, left 03/02/23 19:59 ABG pH 7.43 (7.35-7.45) 03/02/23 19:59 ABG pCO2 35.1 mmHg (35-45) 03/02/23 19:59 ABG pO2 88.0 mmHg (80.0-100.0) 03/02/23 19:59 ABG PO2/FiO2 Ratio 0 03/02/23 19:59 ABG HCO3 23.5 mmol/L (22-26) 03/02/23 19:59 ABG Base Excess -0.4 mmol/L (-2.0-2.0) 03/02/23 19:59 Lalito Test Pos 03/02/23 19:59 Hematocrit 37.3 % (42-52) L 03/02/23 19:59 O2 Delivery Device Nc 03/02/23 19:59 O2 Liters/Min 2.0 % 03/02/23 19:59 FiO2 28.0 % 03/02/23 19:59 Unit Supervisor ID [place] 03/02/23 19:59 Sodium 126 mmol/L (136-145) L 03/02/23 19:10 Potassium 4.4 mmol/L (3.5-5.1) 03/02/23 19:10 Chloride 91 mmol/L (98-107) L 03/02/23 19:10 Carbon Dioxide 20 mmol/L (22-29) L 03/02/23 19:10 Anion Gap 19.4 (5-19) H 03/02/23 19:10 BUN 36 mg/dL (8-23) H 03/02/23 19:10 Creatinine 1.5 mg/dL (0.7-1.2) H 03/02/23 19:10 GFR Calculation 47.3 mL/min (90-130) L 03/02/23 19:10 Glucose 517 mg/dL (65-115) H* 03/02/23 19:10 POC Glucose 496 mg/dL (70-110) H 03/02/23 20:19 Calculated Osmolality 294 mOsm/kg (285-295) 03/02/23 19:10 Lactic Acid 2.0 mmol/L (0.5-2.2) 03/02/23 19:10 Calcium 8.7 mg/dL (8.5-10.5) 03/02/23 19:10 Phosphorus 2.6 mg/dL (2.5-4.5) 03/02/23 19:10 Magnesium 1.9 mg/dL (1.7-2.3) 03/02/23 19:10 Total Bilirubin 1.0 mg/dL (0.15-1.2) 03/02/23 19:10 AST 25 U/L (0-40) 03/02/23 19:10 ALT 21 U/L (0-41) 03/02/23 19:10 Alkaline Phosphatase 79 U/L (40-130) 03/02/23 19:10 Troponin T Baseline 84 ng/L (0-15) H 03/02/23 19:10 C-Reactive Protein 128.0 mg/L (0.0-4.9) H 03/02/23 19:10 NT-Pro-B Natriuret Pep 8158 pg/mL (0-125) H 03/02/23 19:10 Total Protein 6.4 g/dL (6.6-8.7) L 03/02/23 19:10 Albumin 3.5 g/dL (3.5-5.2) 03/02/23 19:10 Globulin 2.9 g/dL (1.3-4.6) 03/02/23 19:10 TSH 1.12 uIU/mL (0.27-4.20) 03/02/23 19:10 Urine Color Yellow (Yellow) 03/02/23 19:03 Urine Appearance Clear (CLEAR) 03/02/23 19:03 Urine pH 5 (5-7) 03/02/23 19:03 Ur Specific [place] 1.005 (1.005-1.030) 03/02/23 19:03 Urine Protein 2+ (Negative) H 03/02/23 19:03 Urine Glucose (UA) 4+ (Normal) H 03/02/23 19:03 Urine Ketones 1+ (Negative) H 03/02/23 19:03 Urine Blood 3+ (Negative) H 03/02/23 19:03 Urine Nitrate Negative (Negative) 03/02/23 19:03 Urine Bilirubin Neg (Negative) 03/02/23 19:03 Urine Urobilinogen Norm mg/dL (Negative) 03/02/23 19:03 Ur Leukocyte Esterase Negative (Negative) 03/02/23 19:03 Urine RBC 5-10 /hpf (0-2) H 03/02/23 19:03 Urine WBC 15-25 /hpf (0-5) H 03/02/23 19:03 Ur Squamous Epith Cells 0-4 /hpf (0-5) H 03/02/23 19:03 Amorphous Sediment Not Reportable 03/02/23 19:03 Urine Bacteria 1+ /hpf (NONE) H 03/02/23 19:03 Urine Mucus Trace /hpf 03/02/23 19:03 Serum Ketones Negative (Negative) 03/02/23 19:10 All radiology interpretation(s) finalized by discharge Discharge Plan Discharge Patient Disposition: Admitted As Inpatient Clinical Impression: VF (ventricular fibrillation), Atrial fibrillation with rapid ventricular response, Sepsis, Acute hyperglycemia Condition: Fair Prescriptions: No Action Jardiance 25 mg tablet 25 mg PO DAILY insulin aspart U-100 [Novolog U-100 Insulin aspart] 100 unit/mL solution 60 unit SUBCUT TID Tresiba U-100 Insulin 100 unit/mL solution 100 unit SUBCUT DAILY Trulicity 1.5 mg/0.5 mL pen injector 1.5 mg SUBCUT .WEEKLY atorvastatin 40 mg tablet 40 mg PO DAILY spironolactone 25 mg tablet 25 mg PO DAILY citalopram 20 mg tablet 20 mg PO DAILY allopurinol 100 mg tablet 100 mg PO DAILY Xarelto 20 mg tablet 20 mg PO DAILY terazosin 1 mg capsule 1 mg PO DAILY furosemide 40 mg tablet 80 mg PO DAILY Entresto 97-103 mg tablet 1 tab PO BID Qty: 120 2RF Cipro 500 mg tablet 500 mg PO BID Qty: 14 0RF tamsulosin 0.4 mg capsule 0.4 mg PO DAILY Qty: 30 0RF ondansetron 4 mg tablet,disintegrating 4 mg PO Q6H PRN (Reason: nausea and vomiting) Qty: 14 0RF doxycycline hyclate 100 mg tablet 100 mg PO BID 7 Days Qty: 14 0RF albuterol sulfate 90 mcg/actuation HFA aerosol inhaler 2 inh INHALATION Q4H PRN (Reason: shortness of breath or wheezing) Qty: 6.7 1RF Referrals: Rochelle Rodriges MD [Primary Care Provider] - Coding Level of Care Code ED Kennel Manager for Zechariah Vicente
[2023-03-02] MEDS: vancomycin 1,250 MG/250 ML PIGGYBACK 250 MG IV (20:47)
--- NOTE | 2023-03-02 20:51 | ECG_ITS ---
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 Measurements Intervals [place] Rate: 84 P: -11 CO: 195 QRS: 39 QRSD: 122 T: 81 QT: 403 QTc: 478 Interpretive Statements SINUS RHYTHM WITH FREQUENT VENTRICULAR PREMATURE COMPLEXES POSSIBLE ANTERIOR MYOCARDIAL INFARCTION , OF INDETERMINATE AGE [30 ms Q WAVE IN V3/V4, OR R < 0.2 mV IN V4] Compared to ECG 03/02/2023 18:47:22 Sinus tachycardia no longer present Myocardial infarct finding still present Electronically Signed On 03-03-2023 10:53:39 BATTERY STARTER by Santiago Walden M.D. [email or web address]
[2023-03-02 20:54] LABS: Adenovirus Not Detected (NOT DETECT); Chlamydia Pneumoniae Not Detected (NOT DETECT); Coronavirus 229E,HKU1,NL63,OC4 Not Detected (NOT DETECT); Human Metapneumovirus Not Detected (NOT DETECT); Human Rhinovirus/Enterovirus Not Detected (NOT DETECT); Influenza A Not Detected (NOT DETECT); Influenza A H1 Not Detected (NOT DETECT); Influenza A H1-2009 Not Detected (NOT DETECT); Influenza A H3 Not Detected (NOT DETECT); Influenza B Not Detected (NOT DETECT); Mycoplasma Pneumoniae Not Detected (NOT DETECT); Parainfluenza Virus Type 1 Not Detected (NOT DETECT); Parainfluenza Virus Type 2 Not Detected (NOT DETECT); Parainfluenza Virus Type 3 Not Detected (NOT DETECT); Parainfluenza Virus Type 4 Not Detected (NOT DETECT); Respiratory Syncytial Virus A Not Detected (NOT DETECT); Respiratory Syncytial Virus B Not Detected (NOT DETECT); SARS-COV-2 Not Detected (NOT DETECT)
[2023-03-02 21:08] LABS: Troponin 5 2HR 95.39 ng/L (0-15)
[2023-03-02 21:09] LABS: Troponin 5 2HR Delta 11.39 ABS# (0-10)
--- NOTE | 2023-03-02 21:22 | P.HP_ITS ---
Providers/Chief Complaint 2 Primary Care Provider: Rochelle Rodriges MD Chief Complaint: CHEST PAIN History of Present Illness Eliseo Reyes is a 62 year old male who has history of recently ejection fraction heart failure exacerbation status post AICD that was done few years ago at [facility], has history of diabetes, insulin-dependent, sleep apnea, Presented with chief complaint of AICD discharge. Patient is stating that Yesterday in the ER he was evaluated for his flu related symptoms however he has not tested positive, he has been feeling sick which he is describing as lethargy fatigue and common cold related symptoms he has not noticed any fever, he does not use any oxygen, no nausea, vomiting or chest pain, he was voiding urine today when all of a sudden his AICD shocked him twice that prompted his visit to the ER. aicd interrogation has been requested, patient is in sinus rhythm, troponin elevation no active chest pain Respiratory panel negative X-ray showing no acute infiltrate Afebrile Currently on 2 L of oxygen Blood pressure stable Patient is stating that he has not taken insulin in the last 3 days, his blood sugar is high negative ketones, anion gap mildly high, anion gap mildly high, has received regular IV insulin 15 units Patient has ruled in for non-STEMI, no active chest pain Review of Systems 2 Const: Reports: chills, body aches, change in weight and fatigue Eyes: Denies: change in vision ENMT: Denies: throat pain Card: Reports: swelling of feet/ankles; Denies: chest pain Resp: Denies: dyspnea GI: Denies: abdominal pain : Denies: flank pain Medications/Allergies Home Medications Medication Instructions Recorded Confirmed Last Taken Type allopurinol 100 mg tablet 100 mg PO DAILY 06/30/19 03/02/23 Unknown History atorvastatin 40 mg tablet 80 mg PO BEDTIME 06/30/19 03/02/23 Unknown History citalopram 20 mg tablet 20 mg PO DAILY 06/30/19 03/02/23 Unknown History dulaglutide 1.5 mg/0.5 mL 1.5 mg SUBCUT .WEEKLY 06/30/19 03/02/23 02/26/23 History subcutaneous pen injector (Trulicity) insulin aspart U-100 100 unit/mL 60 unit SUBCUT TID 06/30/19 03/02/23 Unknown History subcutaneous solution (Novolog U-100 Insulin aspart) insulin degludec 100 unit/mL 100 unit SUBCUT DAILY 06/30/19 03/02/23 Unknown History subcutaneous solution (Tresiba U-100 Insulin) rivaroxaban 20 mg tablet (Xarelto) 20 mg PO DAILY 06/30/19 03/02/23 Unknown History spironolactone 25 mg tablet 25 mg PO DAILY 06/30/19 03/02/23 Unknown History terazosin 1 mg capsule 1 mg PO BEDTIME 06/30/19 03/02/23 Unknown History empagliflozin 25 mg tablet 25 mg PO DAILY 09/07/19 03/02/23 Unknown History (Jardiance) furosemide 40 mg tablet 60 mg PO BID 09/07/19 03/02/23 Unknown History sacubitril 97 mg-valsartan 103 mg 1 tab PO BID #120 tabs 10/18/20 03/02/23 Unknown Rx tablet (Entresto) albuterol sulfate 90 mcg/actuation 2 inh inhalation Q4H PRN shortness 03/02/23 03/02/23 Unknown Rx aerosol inhaler of breath or wheezing #6.7 grams aspirin 81 mg chewable tablet 81 mg PO DAILY 03/02/23 03/02/23 Unknown History carvedilol 25 mg tablet 25 mg PO BID 03/02/23 03/02/23 Unknown History doxycycline hyclate 100 mg tablet 100 mg PO BID 7 days #14 tabs 03/02/23 03/02/23 Unknown Rx ergocalciferol (vitamin D2) 1,250 50,000 unit PO DIRECTED 03/02/23 03/02/23 02/26/23 History mcg (50,000 unit) capsule Allergies Allergy/AdvReac Type Severity Reaction Status Date / Time No Known Allergies Allergy Unverified 10/18/20 14:49 PFSH Acute 2 PFSH: Medical History Anticoagulation adequate with anticoagulant therapy Dyslipidemia NAKUL (obstructive sleep apnea) CHF (congestive heart failure) Diabetes DVT (deep venous thrombosis) Cardiomyopathy Surgical History S/P ICD (internal cardiac defibrillator) procedure Family History Father Stroke CAD (coronary artery disease) Sister Stroke Brother Stroke Other Hypertension Social History Smoking and tobacco/nicotine status: never used tobacco/nicotine Alcohol intake: never Substance/Drug Use: never Vitals/I&O/Wt Last Vital Signs Temp 99.3 F 03/02/23 18:38 Pulse 78 03/02/23 21:00 Resp 26 H 03/02/23 21:00 BP 139/76 03/02/23 21:00 Pulse Ox 95 03/02/23 21:00 O2 Del Method Nasal Cannula 03/02/23 20:48 O2 Flow Rate 2 03/02/23 20:48 03/02/23 03/02/23 03/02/23 06:59 14:59 22:59 Intake Total 50 / 50 Balance 50 / 50 Weight last 48 hrs Weight 122.47 kg Physical Exam 2 Narrative: Clinical signs of fluid overload S1, S2 Currently on 2 L No audible stridor or wheezing S1, S2 sinus rhythm No active chest pain at all Pleasant cooperative Nonfocal neuroexam GCS 15 at the bedside Data 03/02/23 19:10 03/02/23 19:10 A&P Assessment and plan (1) CHF (congestive heart failure): (2) S/P ICD (internal cardiac defibrillator) procedure: (3) Anticoagulation adequate with anticoagulant therapy: (4) Diabetes: (5) Acute hyperglycemia: (6) NAKUL (obstructive sleep apnea): (7) AICD discharge: (8) Chronic hyponatremia: Plan AICD discharge nstemi Aicd interrogation Currently in sinus rhythm No active chest pain Troponin elevation Start non-STEMI/ACS protocol I will be him loading dose of aspirin and Plavix hold rivaroxaban and give him therapeutic dose of Lovenox once daily because of creatinine 1.5 Keep potassium above 4 and magnesium of 2 Patient is describing flu related symptoms however respiratory panel is negative chronic hyponatremia, he is hypervolemic as well with high BNP Continue IV Lasix He has reduced ejection fraction heart failure exacerbation Continue IV Lasix hyponatremia within setting of heart failure does carry poor prognosis I do believe his symptoms of fluid related symptoms are related to hyponatremia [employer] Specialist is in [facility] Will consult Dr. Walden My threshold to start amiodarone will stay low if patient gets more symptoms overnight currently he is in sinus rhythm with no active chest pain Hyperglycemia without ketosis Patient has high mildly high anion gap I treat him withsubcutaneous insulin patient has received IV regular insulin 15 units so far will check A1c level Consistent carb diet High-dose sliding scale Patient takes high-dose 100 units of long-acting insulin at home along trulicity Full code at home takes rivaroxaban for history of DVT Attestations 2 Medical Necessity Statement*: More than 2 midnights anticipated Diagnoses CHF (congestive heart failure) I50.9 S/P ICD (internal cardiac defibrillator) procedure Z95.810 Anticoagulation adequate with anticoagulant therapy Z79.01 Diabetes E11.9 Acute hyperglycemia R73.9 NAKUL (obstructive sleep apnea) G47.33 AICD discharge Z45.02 Chronic hyponatremia E87.1
[2023-03-02] MEDS: insulin regular-human 100 units/1 mL 5 UNIT IVP (21:40)
[2023-03-02 21:42] LABS: Glucose Point of Care 495 mg/dL (70-110)
[2023-03-02 23:05] LABS: Estmated Average Glucose 209; Hemoglobin A1C 8.9 % (4.0-6.0)
[2023-03-02 23:19] LABS: Thyroid Stimulating Hormone 1.12 uIU/mL (0.27-4.20); Vitamin B12 241 pg/mL (232-1245)
[2023-03-02 23:19] LABS: Glucose Point of Care 498 mg/dL (70-110)
[2023-03-02] MEDS: aspirin 325 mg EC Tablet PO (23:44)
[2023-03-02] MEDS: magnesium oxide 400 mg tablet PO (23:44)
[2023-03-02] MEDS: clopidogrel 300 mg Tablet PO (23:45)
[2023-03-02] MEDS: enoxaparin 100 mg/mL Syringe SUBCUT (23:51)
[2023-03-02] MEDS: insulin glargine 100 units/1 mL 50 UNIT SUBCUT (23:52)
[2023-03-02] MEDS: flu vacc pf 2023-24 (6 mos+) 60 MCG IM (23:55)
[2023-03-02] MEDS: pneumococcal (23 valent) SDV 0.5 mL IM (23:57)
[2023-03-03] VITALS (61 sets, daily range): BP systolic 104–174; BP diastolic 71–108; PULSE 63–92; RESP 12–33; TEMP 36.3–37.4; O2SAT 92–98
--- NOTE | 2023-03-03 00:51 | ECG_ITS ---
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 [email or web address]
[2023-03-03] MEDS: insulin lispro 100 unit/1 mL 20 UNIT SUBCUT (01:02)
[2023-03-03 01:29] LABS: Troponin 5 6HR 88.01 ng/L (0-15); Troponin 5 6HR Delta 4.01 ng/L (0-12)
[2023-03-03 05:26] LABS: Basophils % 0.3 %; Eosinophils % 0.1 %; Hematocrit 36.6 % (37-53); Lymphocytes # 1.4 10^3/uL (0.8-4.8); Lymphocytes % 18.7 %; Mean Corpuscular Hemoglobin 27.5 pg (27-33); Mean Corpuscular Volume 86.1 fl (82-101); Mean Platelet Volume 10.8 fL (7.4-10.4); Monocytes # 0.8 10^3/uL (0.2-0.9); Monocytes % 10.9 %; Neutrophils # 5.18 10^3/uL (1.8-7.7); Neutrophils % 69.6 %; Nucleated Red Blood Cells % 0 %; Platelet Count 150 10^3/cmm (157-399); Red Blood Count 4.25 10^6/uL (3.85-5.65); Red Cell Distribution Width 16.4 % (12.1-15.1); White Blood Count 7.44 10^3/uL (3.29-11.43)
[2023-03-03 05:49] LABS: Anion Gap 16.4 (5-19); Blood Urea Nitrogen 39 mg/dL (8-23); C Reactive Protein 185.3 mg/L (0.0-4.9); Carbon Dioxide 23 mmol/L (22-29); Chloride 97 mmol/L (98-107); Glomerular Filtration Rate 40.9 mL/min (90-130); Glucose 320 mg/dL (65-115); Magnesium 2.5 mg/dL (1.7-2.3); Osmolality Calculated 296 mOsm/kg (285-295); Phosphorus 3.9 mg/dL (2.5-4.5); Potassium 4.4 mmol/L (3.5-5.1); Sodium 132 mmol/L (136-145)
[2023-03-03 05:49] LABS: Glucose Point of Care 351 mg/dL (70-110)
--- NOTE | 2023-03-03 08:01 | P.PN_ITS ---
Documented by User: eve Delgadillo 03/03/23 09:05 Subjective 2 Subjective: Patient was evaluated this morning while lying in bed on 2L/NC. Does not require oxygen at home, though maintaining 97% at this time. Patient reports no cardiac or AICD events overnight. Does report that he has been having some dysuria symptoms. He denies any abdominal pain, nausea, vomiting, chest discomfort or shortness of breath at this time. Remains currently on amiodarone drip. Medications: Reviewed: Yes Vitals/I&O/Wt Last Vital Signs Temp 97.4 F L 03/03/23 00:10 Pulse 67 03/03/23 07:59 Resp 16 03/03/23 07:59 BP 135/93 03/03/23 04:00 Pulse Ox 97 03/03/23 07:59 O2 Del Method Nasal Cannula 03/03/23 07:59 O2 Flow Rate 2 03/03/23 07:59 03/02/23 03/03/23 03/03/23 22:59 06:59 14:59 Intake Total 1300 / 1300 197.203 / 1497.203 Output Total 1900 / 1900 Balance 1300 / 1300 -1702.797 / -402.797 Weight last 48 hrs Weight 124.738 kg Weight 125.69 kg Weight 122.47 kg Physical Exam 2 Narrative: General: Alert, able to answer questions appropriately, obese HEENT: Normocephalic, dry mucous membranes Neck: Supple Lymph: No lymphadenopathy noted Chest: Even rise and normal to inspection Respiratory: Respirations even, lung sounds clear/diminished to auscultation, to L/NC Cardio: A-fib on telemetry, irregular, pulses 2+ radial and dorsalis pedis. Trace edema throughout GI: Round, obese, active bowel sounds : Deferred Neuro: Alert and oriented x 4, able to answer questions appropriately Skin: Injection subcutaneous necrosis to RLQ and LLQ sites Data 03/03/23 04:55 03/03/23 04:55 Other Labs: Glucose 320, sodium 132, BUN 39, creatinine 1.7 Urine WBC 15-25, urine RBC 5-10, urine bacteria 1+ CXR: My impression: Per my interpretation, no acute findings. Cardiomegaly with right-sided AICD in place Radiologist's impression: No acute findings A&P Assessment and plan (1) AICD discharge: Patient reports that he had an AICD placed by cardiology in [place], Dr. Duong, due to his left side of heart is not functioning well at about 10 to 15% per patient. States that he had a recent AICD discharge that happened yesterday and only shocked him twice he stated. Stated that this is the first occurrence of the AICD firing. Cardiology consultation. Recommendations appreciated Patient will undergo a stress test tomorrow. Patient was placed on amiodarone drip. Will remain in place and possibly transition to p.o. per cardiology. Home anticoagulation on hold and transition to Lovenox. Restart home Coreg CBC and BMP in AM. Resume consistent carb diet. N.p.o. after midnight for stress test in a.m. (2) CHF (congestive heart failure): BNP noted to be elevated Trace edema throughout Patient will remain on current regimen of Lasix 40 mg daily. CBC and BMP in a.m. (3) Cystitis: Patient has complaint of dysuria. Urinalysis obtained while in emergency room and revealed increased WBC and RBC. Will treat with Rocephin IV and patient received Rocephin and vancomycin while in emergency room. Will obtain urine culture. (4) Acute hyperglycemia: Last glucose 320 Insulin sliding scale Accu-Cheks ACHS Consistent carb diet N.p.o. this a.m. for possible procedure with cardiology services. (5) NAKUL (obstructive sleep apnea): BiPAP at nighttime. (6) Chronic hyponatremia: Improving since admission. Noted to be 132 this a.m. BMP in AM. Plan Plan as stated above. Will wait for cardiology consultation. Restarted home beta-candice. Remain on amiodarone drip and will transition to p.o. per cardiology. Patient will undergo stress test tomorrow morning. No acute vents overnight of AICD. Patient will be placed on Rocephin for symptomatic dysuria. Obtain urine culture DVT prophylaxis: Lovenox Code status: Full code. Coding Level of Care Code 56471 Diagnoses AICD discharge Z45.02 CHF (congestive heart failure) I50.9 Cystitis N30.90 Acute hyperglycemia R73.9 NAKUL (obstructive sleep apnea) G47.33 Chronic hyponatremia E87.1 Time Spent (min) 35 Documented by User: Alex Zimmer MD 03/03/23 11:26 Subjective 2 Subjective: Patient was evaluated this morning while lying in bed on 2L/NC. Does not require oxygen at home, though maintaining 97% at this time. Patient reports no cardiac or AICD events overnight. Does report that he has been having some dysuria symptoms. He denies any abdominal pain, nausea, vomiting, chest discomfort or shortness of breath at this time. Remains currently on amiodarone drip. Cardiology evaluating events, and concern of defibrillator firing Data 03/03/23 04:55 03/03/23 04:55 Other Labs: Glucose 320, sodium 132, BUN 39, creatinine 1.7 Urine WBC 15-25, urine RBC 5-10, urine bacteria 1+ Magnesium and TSH were checked and normal. A&P Assessment and plan (1) AICD discharge: Patient reports that he had an AICD placed by cardiology in [place], Dr. Duong, due to his left side of heart is not functioning well at about 10 to 15% per patient. States that he had a recent AICD discharge that happened yesterday and only shocked him twice he stated. Stated that this is the first occurrence of the AICD firing. Cardiology consultation. Recommendations appreciated Patient will undergo a stress test tomorrow. Patient was placed on amiodarone drip. Will remain in place and possibly transition to p.o. per cardiology. Home anticoagulation on hold and transition to Lovenox. Restart home Coreg CBC and BMP in AM. Resume consistent carb diet. N.p.o. after midnight for stress test in a.m. Echocardiogram (2) CHF (congestive heart failure): BNP noted to be elevated Trace edema throughout Discontinue IV Lasix and place him on his home regimen of 60 mg twice daily CBC and BMP in a.m., magnesium in the morning (3) Cystitis: (4) Acute hyperglycemia: Last glucose 320 Insulin sliding scale Accu-Cheks ACHS Consistent carb diet (5) NAKUL (obstructive sleep apnea): (6) Chronic hyponatremia: Plan NSTEMI. Fully anticoagulated on Xarelto at home. Changed to Lovenox. Pharmacy will adjust dosing for renal function. Continue beta-candice, statin. Currently on Plavix and aspirin. Chronic kidney disease. Appears to be at baseline. Monitor closely. Avoid renal toxic medication. CBC, CMP daily Plan as stated above. Will wait for cardiology consultation. Restarted home beta-candice. Remain on amiodarone drip and will transition to p.o. per cardiology. Patient will undergo stress test tomorrow morning. No acute vents overnight of AICD. Patient will be placed on Rocephin for symptomatic dysuria. Obtain urine culture DVT prophylaxis: Lovenox Code status: Full code. Attestations 2 Medical Necessity Statement*: Needs continued hospital stay for evaluation and management of arrhythmia with firing of defibrillator. Diagnoses AICD discharge Z45.02 CHF (congestive heart failure) I50.9 Cystitis N30.90 Acute hyperglycemia R73.9 NAKUL (obstructive sleep apnea) G47.33 Chronic hyponatremia E87.1 Time Spent (min) 35
--- NOTE | 2023-03-03 08:23 | P.CONIM_ITS ---
Providers/Reason For Consult 2 Consulting Physician/Specialty*: Santiago Walden MD/ Cardiology Reason for Consult*: Troponin elevation/ ICD shock Requesting Physician: Dr Piña Attending Physician: Alex Zimmer MD Primary Care Provider: Rochelle Rodriges MD History of Present Illness History of Present Illness Eliseo Reyes is a 62 year old male with past medical history of atrial fibrillation, dilated cardiomyopathy, diabetes, ICD in place has presented to hospital after receiving 2 shocks from the ICD. Patient was earlier seen for cough weakness. He was sent home on doxycycline. He had vomiting episode also had ICD shocks x 2. ICD interrogation shows atrial fibrillation with RVR with failed overdrive pacing resulting in 2 shocks. After second shock, the patient was cardioverted back to normal sinus rhythm. His troponins were elevated. Cardiology was consulted for that. Review of Systems 2 Const: Reports: chills, body aches, change in weight and fatigue Eyes: Denies: change in vision ENMT: Denies: throat pain Card: Reports: swelling of feet/ankles; Denies: chest pain Resp: Denies: dyspnea GI: Denies: abdominal pain : Denies: flank pain Medications/Allergies Home Medications Medication Instructions Recorded Confirmed Last Taken Type allopurinol 100 mg tablet 100 mg PO DAILY 06/30/19 03/02/23 Unknown History atorvastatin 40 mg tablet 80 mg PO BEDTIME 06/30/19 03/02/23 Unknown History citalopram 20 mg tablet 20 mg PO DAILY 06/30/19 03/02/23 Unknown History dulaglutide 1.5 mg/0.5 mL 1.5 mg SUBCUT .WEEKLY 06/30/19 03/02/23 02/26/23 History subcutaneous pen injector (Trulicity) insulin aspart U-100 100 unit/mL 60 unit SUBCUT TID 06/30/19 03/02/23 Unknown History subcutaneous solution (Novolog U-100 Insulin aspart) insulin degludec 100 unit/mL 100 unit SUBCUT DAILY 06/30/19 03/02/23 Unknown History subcutaneous solution (Tresiba U-100 Insulin) rivaroxaban 20 mg tablet (Xarelto) 20 mg PO DAILY 06/30/19 03/02/23 Unknown History spironolactone 25 mg tablet 25 mg PO DAILY 06/30/19 03/02/23 Unknown History terazosin 1 mg capsule 1 mg PO BEDTIME 06/30/19 03/02/23 Unknown History empagliflozin 25 mg tablet 25 mg PO DAILY 09/07/19 03/02/23 Unknown History (Jardiance) furosemide 40 mg tablet 60 mg PO BID 09/07/19 03/02/23 Unknown History sacubitril 97 mg-valsartan 103 mg 1 tab PO BID #120 tabs 10/18/20 03/02/23 Unknown Rx tablet (Entresto) albuterol sulfate 90 mcg/actuation 2 inh inhalation Q4H PRN shortness 03/02/23 03/02/23 Unknown Rx aerosol inhaler of breath or wheezing #6.7 grams aspirin 81 mg chewable tablet 81 mg PO DAILY 03/02/23 03/02/23 Unknown History carvedilol 25 mg tablet 25 mg PO BID 03/02/23 03/02/23 Unknown History doxycycline hyclate 100 mg tablet 100 mg PO BID 7 days #14 tabs 03/02/23 03/02/23 Unknown Rx ergocalciferol (vitamin D2) 1,250 50,000 unit PO DIRECTED 03/02/23 03/02/23 02/26/23 History mcg (50,000 unit) capsule Allergies Allergy/AdvReac Type Severity Reaction Status Date / Time No Known Allergies Allergy Unverified 10/18/20 14:49 Current Medications Generic Name Dose Route Start Last Admin Trade Name Freq PRN Reason Stop Dose Admin Enoxaparin Sodium 100 mg 03/02/23 23:45 03/02/23 23:51 Enoxaparin 100 Mg/Ml Syringe SUBCUT 100 mg Q12H DEMARCO Administration Amiodarone HCl/Dextrose 360 mg in 200 mls @ 0 mls/hr 03/02/23 23:27 03/03/23 05:41 Nexterone IV 0.5 mg/min .Q0M DEMARCO 16.67 mls/hr Titration Protocol Per Protocol Insulin Glargine 50 unit 03/02/23 22:15 03/02/23 23:52 Insulin Glargine 100 Units/1 Ml SUBCUT 50 unit BEDTIME DEMARCO Administration Magnesium Oxide 400 mg 03/02/23 23:30 03/02/23 23:44 Magnesium Oxide 400 Mg Tablet PO 400 mg BID DEMARCO Administration PFSH Acute 2 PFSH: Medical History Anticoagulation adequate with anticoagulant therapy Dyslipidemia NAKUL (obstructive sleep apnea) CHF (congestive heart failure) Diabetes DVT (deep venous thrombosis) Cardiomyopathy Surgical History S/P ICD (internal cardiac defibrillator) procedure Family History Father Stroke CAD (coronary artery disease) Sister Stroke Brother Stroke Other Hypertension Social History Smoking and tobacco/nicotine status: never used tobacco/nicotine Alcohol intake: never Substance/Drug Use: never Vitals/I&O/Wt Last Vital Signs Temp 97.4 F L 03/03/23 00:10 Pulse 67 03/03/23 07:59 Resp 16 03/03/23 07:59 BP 135/93 03/03/23 04:00 Pulse Ox 97 03/03/23 07:59 O2 Del Method Nasal Cannula 03/03/23 07:59 O2 Flow Rate 2 03/03/23 07:59 03/02/23 03/03/23 03/03/23 22:59 06:59 14:59 Intake Total 1300 / 1300 197.203 / 1497.203 Output Total 1900 / 1900 Balance 1300 / 1300 -1702.797 / -402.797 Weight last 48 hrs Weight 275 lb Weight 277 lb 1.6 oz Weight 270 lb Physical Exam 2 Narrative: GENERAL: Patient is alert, awake and oriented x3. [] NECK: No jugular vein distension. [] HEENT: No cyanosis. No icterus. No pallor. [] HEART: Regular S1 and S2. No murmur, rub or gallop. [] LUNGS: Clear to auscultate bilaterally. [] CENTRAL NERVOUS SYSTEM: Grossly nonfocal. [] EXTREMITIES: Lower extremities with 1+ edema bilaterally. Data 03/04/23 03:15 03/04/23 03:15 A&P Assessment and plan (1) Atrial fibrillation with rapid ventricular response: (2) AICD discharge: (3) NSTEMI (non-ST elevated myocardial infarction): (4) CHF (congestive heart failure): (5) S/P ICD (internal cardiac defibrillator) procedure: (6) Dyslipidemia: (7) DVT (deep venous thrombosis): Plan Patient's ICD shocks appear to be related to A-fib with RVR. We will obtain echocardiogram. Continue amiodarone drip for 24 hours and switch to p.o. amiodarone 400mg BID afterwards Troponin elevation could be secondary to ICD shock and A-fib with RVR. However we will obtain stress test to rule out ischemia. Continue Entresto and Coreg. Monitor renal function. Diabetes management per primary team. Thank you for involving us with care of this patient. We will continue to follow. Please call with questions. Consult Attestations 2 Medical Necessity Statement: Care expected to cross 2 midnights Coding Level of Care Code Acute Code for Chg Fwd Diagnoses Atrial fibrillation with rapid ventricular response I48.91 AICD discharge Z45.02 NSTEMI (non-ST elevated myocardial infarction) I21.4 CHF (congestive heart failure) I50.9 S/P ICD (internal cardiac defibrillator) procedure Z95.810 Dyslipidemia E78.5 DVT (deep venous thrombosis) I82.409
--- NOTE | 2023-03-03 10:30 | USCV_ITS ---
Eliseo Reyes Age: 62 Gender: M : 1960 Exam Date: 03/03/2023 10:03 Ordering Phys: Mayra Piña MD Technologist: Faizan Sosa Exam Location: [facility] Indication: chest pain sob BP: 136 / 92 HR: 64 Rhythm: Sinus Technical Quality: Adequate MEASUREMENTS (Male / Female) Normal Values 2D ECHO LV Diastolic Diameter PLAX 5.8 cm 4.2 - 5.9 / 3.9 - 5.3 cm LV Systolic Diameter PLAX 5.1 cm IVS Diastolic Thickness 1.5 cm 0.6 - 1.0 / 0.6 - 0.9 cm IVS Systolic Thickness 1.7 cm LVPW Diastolic Thickness 1.3 cm 0.6 - 1.0 / 0.6 - 0.9 cm LVPW Systolic Thickness 1.8 cm LVOT Diameter 2.0 cm LV Ejection Fraction 2D Teich 24.6 % LV Ejection Fraction MOD 2C 14.7 % LV Ejection Fraction 2C AL 16.1 % LA Diameter 4.0 cm IVC Diameter 2.3 cm M-MODE Aortic Annulus Diameter 4.2 cm LA Ao Ratio MM 0.9 MV E Point Septal Separation 1.9 cm DOPPLER AV Peak Velocity 102.0 cm/s LVOT Peak Velocity 69.0 cm/s AV Area Cont Eq vti 2.3 cm squared AV Area Cont Eq pk 2.1 cm squared MV Area PHT 3.5 cm squared Mitral E to A Ratio 2.5 MV E' Velocity 51.0 cm/s Mitral E to MV E' Ratio 18.5 Mitral E to LV E' Lateral Ratio 15.3 Mitral E to LV E' Septal Ratio 24.1 TR Peak Velocity 182.8 cm/s TR Peak Gradient 13.4 mmHg TV Peak E Velocity 77.0 cm/s Right Atrial Pressure 3.0 mmHg Pulmonary Artery Systolic Pressu 16.4 mmHg FINDINGS Left Ventricle Severe diffuse hypokinesia of the left ventricular with ejection fraction of 25%. Mildly dilated LV cavity Right Ventricle Pacemaker/defibrillator wire in the right ventricle Right Atrium Pacemaker/defibrillator wire in the right atrium Left Atrium Mildly increased left atrial size. Mitral Valve Mild mitral valve regurgitation. Aortic Valve Thickened aortic valve. Tricuspid Valve No gross abnormalities noted Pulmonic Valve Pulmonic valve not well visualized. Pericardium No pericardial effusion. Aorta Normal aortic annulus size. IVC Normal inferior vena cava. CONCLUSIONS Severe diffuse hypokinesia of the left ventricular with ejection fraction of 25%. Mildly increased left atrial size. Mild mitral valve regurgitation. Thickened aortic valve. Mildly dilated LV cavity. Pacemaker/defibrillator wire in the right atrium/right ventricle There is no pericardial effusion. Compared to the study from 07/08/2014, there seems to be a drop in the LV ejection fraction from 35 to 25% Dr Garland Downey MD [facility] (Electronically Signed) Final Date: 03 March 2023 16:55 S
[2023-03-03 12:04] LABS: Glucose Point of Care 242 mg/dL (70-110)
[2023-03-03] MEDS: allopurinol 100 mg Tablet PO (12:32)
[2023-03-03] MEDS: magnesium oxide 400 mg tablet PO ×2 (12:32→17:39)
[2023-03-03] MEDS: enoxaparin 100 mg/mL Syringe SUBCUT ×2 (12:32→23:26)
[2023-03-03] MEDS: sacubitril/valsartan 24-26 mg Tablet 4 EACH PO ×2 (12:33→17:39)
[2023-03-03] MEDS: tamsulosin 0.4 mg Capsule PO (12:33)
[2023-03-03] MEDS: sennosides-docusate Tablet 1 TAB PO (12:33)
[2023-03-03] MEDS: aspirin 81 mg EC Tablet PO (12:33)
[2023-03-03] MEDS: atorvastatin 40 mg Tablet PO (12:34)
[2023-03-03] MEDS: clopidogrel 75 mg Tablet PO (12:34)
[2023-03-03] MEDS: cefTRIAXone 1,000 MG in sodium chloride 0.9% (plus) 50 ML 100 MG IV ×2 (12:34→14:49)
[2023-03-03] MEDS: carvedilol 3.125 mg Tablet PO ×2 (12:35→17:39)
[2023-03-03] MEDS: insulin lispro 100 unit/1 mL SUBCUT ×3 (12:35→22:02)
--- NOTE | 2023-03-03 13:57 | PC.SOCIAL ---
IMM Update: pg 2 of IMM updated and reviewed w/ patient. Copy provided and copy dated, initialed and placed in chart.
[2023-03-03] MEDS: acetaminophen 500 mg Tablet PO (14:50)
[2023-03-03] MEDS: FUROsemide 10 mg/mL SDV 10mL 60 MG IVP (14:50)
[2023-03-03 16:40] LABS: Glucose Point of Care 261 mg/dL (70-110)
[2023-03-03] MEDS: FUROsemide 40 mg Tablet 60 MG PO (17:39)
[2023-03-03] MEDS: insulin glargine 100 units/1 mL 50 UNIT SUBCUT (21:15)
[2023-03-03 21:40] LABS: Glucose Point of Care 299 mg/dL (70-110)
[2023-03-04] VITALS (9 sets, daily range): BP systolic 110–139; BP diastolic 67–77; PULSE 66–77; RESP 18–24; TEMP 36.9–37.3; O2SAT 90–98; BMI 38.3
[2023-03-04 03:50] LABS: Basophils % 0.3 %; Eosinophils % 0.4 %; Hematocrit 34.6 % (37-53); Lymphocytes % 25.4 %; Mean Corpuscular HGB Conc 31.2 g/dL (30-55); Mean Corpuscular Hemoglobin 27.1 pg (27-33); Mean Corpuscular Volume 86.7 fl (82-101); Mean Platelet Volume 10.6 fL (7.4-10.4); Monocytes # 0.8 10^3/uL (0.2-0.9); Monocytes % 10.5 %; Neutrophils # 4.94 10^3/uL (1.8-7.7); Neutrophils % 63.3 %; Nucleated Red Blood Cells % 0 %; Platelet Count 152 10^3/cmm (157-399); Red Blood Count 3.99 10^6/uL (3.85-5.65); Red Cell Distribution Width 16.5 % (12.1-15.1)
[2023-03-04 04:13] LABS: Alanine Aminotransferase 15 U/L (0-41); Albumin Level 2.9 g/dL (3.5-5.2); Alkaline Phosphatase 76 U/L (40-130); Anion Gap 13.9 (5-19); Aspartate Amino Transferase 19 U/L (0-40); Blood Urea Nitrogen 42 mg/dL (8-23); Carbon Dioxide 24 mmol/L (22-29); Chloride 100 mmol/L (98-107); Globulin 3.6 g/dL (1.3-4.6); Glomerular Filtration Rate 40.9 mL/min (90-130); Glucose 185 mg/dL (65-115); Magnesium 2.7 mg/dL (1.7-2.3); Osmolality Calculated 293 mOsm/kg (285-295); Potassium 3.9 mmol/L (3.5-5.1); Sodium 134 mmol/L (136-145); Total Bilirubin 0.5 mg/dL (0.15-1.2); Total Protein 6.5 g/dL (6.6-8.7)
--- NOTE | 2023-03-04 06:56 | ECG_ITS ---
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 Interpretive Statements NAME OF STUDY: LEXISCAN SESTAMIBI STRESS TEST INDICATION: [Chest Pain, Arrythmia , ] Procedure: At the baseline, the blood pressure was 121/89 mmHg with a heart rate of 72 bpm. The electrocardiogram showed normal sinus rhythm, normal axis with normal ST and T's, occasional PVCs. The Lexiscan was infused over a period of 20 seconds. A total of 0.4 mg of Lexiscan was infused. The stress phase was continued for a total of 5 minutes. Heart rate was at the end of stress phase was 76 bpm and a blood pressure of 113/68 mmHg. The EKG at the peak infusion revealed normal sinus rhythm with no significant ST-T wave changes and PVCs. Sestamibi was injected 20 seconds after the Lexiscan infusion. Blood pressure at the end of recovery phase was 110/68 mmHg with a heart rate of 77 bpm. Conclusion: 1. Normal EKG response to Lexiscan infusion 2. No Lexiscan induced chest pain or cardiac arrhythmia. 3. Normal blood pressure and heart rate response. 4. Sestamibi/sestamibi perfusion scan pending; see separate report. Electronically Signed On 03-11-2023 15:48:10 DIE CAST DIE MAKER by Santiago Walden M.D. [id number]
--- NOTE | 2023-03-04 06:57 | NMCV_ITS ---
NM kathrin perf SPECT r/s* [id number] Eliseo Reyes Age: 62 Gender: M : 1960 Exam Date: 03/04/2023 06:57 Ordering Phys: Alex Zimmer MD Technologist: YENNY Tierney Exam Location: [facility] Indications: CHEST PAIN STRESS TEST Please see separate stress test report in [facility] for full findings IMAGE PROTOCOL Rest/Stress 1 Lexiscan Day Radiopharmaceutical Dose (mCi) Administration Site Administered by Rest: Tc-99m 10.6 IV YENNY Wood Sestamibi Stress:Tc-99m 33.0 IV YENNY Wood Sestamibi Rest: 04-Mar-2023 60 Discovery 630 Stress: 04-Mar-2023 30 Discovery 630 0.4mg Lexiscan. Images obtained in supine and prone position. SPECT RESULTS Technical Quality: Excellent Raw Data Analysis: Normal Image Corrections: No attenuation or motion correction applied Summed Stress Score: 12 Summed Rest Score: 12 Summed Difference Score: 2 PERFUSION FINDINGS Small to moderate area of moderately decreased tracer uptake involving the mid and apical inferior, apical lateral, apical septal and LV apex. Some reversibility was noted around the apex in the apical inferior and apical lateral segments FUNCTIONAL RESULTS (calculated via Gated SPECT) Stress Image LV EF (%): 25 Stress EDV (mL):268 TID: 0.91 Stress ESV (mL):200 FUNCTIONAL FINDINGS: Segmental wall motion analysis revealed severe diffuse hypokinesis the inferior wall and LV apex. IMPRESSIONS 1. Myocardial perfusion imaging revealing small to moderate area of persistent decreased tracer uptake involving the inferior and apical segments with some reversibility suggesting myocardial scarring both possible julita-infarction ischemia around the apex, mostly in the distribution of the right coronary artery/circumflex artery. 2. Markedly diminished LV ejection fraction 25%. 3. LV wall motion normalities as mentioned above 4. Moderately dilated LV cavity with an end-systolic volume of 200 mL. No similar previous studies are available for comparison Dr Garland Downey MD [facility] (Electronically Signed) Final Date: 04 March 2023 13:17 S
[2023-03-04 07:03] LABS: Glucose Point of Care 142 mg/dL (70-110)
[2023-03-04] MEDS: regadenoson 0.4 Mg/5 ml Syringe IVP (08:42)
--- NOTE | 2023-03-04 08:50 | P.PN_ITS ---
Documented by User: eve Delgadillo 03/04/23 09:17 Subjective 2 Subjective: Patient was evaluated this morning while lying in bed. No acute AICD firing events overnight. N.p.o. for stress test Medications: Reviewed: Yes Vitals/I&O/Wt Last Vital Signs Temp 98.5 F 03/04/23 03:39 Pulse 66 03/04/23 05:51 Resp 20 H 03/04/23 03:39 BP 118/76 03/04/23 03:39 Pulse Ox 98 03/04/23 03:39 O2 Del Method Nasal Cannula 03/04/23 03:39 O2 Flow Rate 2 03/03/23 07:59 03/03/23 03/04/23 03/04/23 22:59 06:59 14:59 Intake Total 199.444 / 199.444 Output Total 750 / 1575 Balance -750 / -925 199.444 / 199.444 Weight last 48 hrs Weight 124.738 kg Weight 124.738 kg Weight 125.69 kg Weight 122.47 kg Physical Exam 2 Narrative: General: Alert, able to answer questions appropriately, obese HEENT: Normocephalic, dry mucous membranes Neck: Supple Lymph: No lymphadenopathy noted Chest: Even rise and normal to inspection Respiratory: Respirations even, lung sounds clear/diminished to auscultation, to L/NC Cardio: A-fib on telemetry, irregular, pulses 2+ radial and dorsalis pedis. Trace edema throughout GI: Round, obese, active bowel sounds : Deferred Neuro: Alert and oriented x 4, able to answer questions appropriately Skin: Injection subcutaneous necrosis to RLQ and LLQ sites Data 03/04/23 03:15 03/04/23 03:15 Other Labs: Hemoglobin 10.8, BUN 42, creatinine 1.7, glucose 185, magnesium 2.7 Echo: Radiologist's impression: CONCLUSIONS Severe diffuse hypokinesia of the left ventricular with ejection fraction of 25%. Mildly increased left atrial size. Mild mitral valve regurgitation. Thickened aortic valve. Mildly dilated LV cavity. Pacemaker/defibrillator wire in the right atrium/right ventricle There is no pericardial effusion. Compared to the study from 07/08/2014, there seems to be a drop in the LV ejection fraction from 35 to 25% A&P Assessment and plan (1) NSTEMI (non-ST elevated myocardial infarction): Fully anticoagulated with Xarelto at home. Changed to Lovenox while hospitalized. Pharmacy to dose based off of renal function. Continue beta-candice and statin. Currently on Plavix and aspirin. Telemetry Stress test completed. Pending results. Cardiology consultation. Recommendations appreciated. Echocardiogram report as stated above. Home Celexa restarted (2) AICD discharge: Patient transitioned from amiodarone IV to amiodarone p.o. No acute events overnight. As per #1 (3) CHF (congestive heart failure): BNP noted to be elevated Trace edema throughout Home regimen of 60 mg twice daily Lasix CBC and BMP, magnesium in a.m. (4) Cystitis: Pending urine culture. Continue IV antibiotic regimen with Rocephin. (5) Acute hyperglycemia: Insulin sliding scale Accu-Cheks ACHS Consistent carb diet (6) NAKUL (obstructive sleep apnea): BiPAP at nighttime. (7) Chronic hyponatremia: Resolved BMP in a.m. Plan Plan as stated above. Wait for stress test results. Transition amiodarone IV drip to p.o. amiodarone. Continue Rocephin IV for symptomatic dysuria. DVT prophylaxis: Lovenox Code status: Full code. Coding Level of Care Code 28562 Diagnoses NSTEMI (non-ST elevated myocardial infarction) I21.4 AICD discharge Z45.02 CHF (congestive heart failure) I50.9 Cystitis N30.90 Acute hyperglycemia R73.9 NAKUL (obstructive sleep apnea) G47.33 Chronic hyponatremia E87.1 Time Spent (min) 24 Documented by User: Alex Zimmer MD 03/04/23 13:52 Subjective 2 Subjective: Patient was evaluated this morning while lying in bed. No acute AICD firing events overnight. N.p.o. for stress test. No chest pain overnight Data 03/04/23 03:15 03/04/23 03:15 A&P Assessment and plan (1) NSTEMI (non-ST elevated myocardial infarction): Fully anticoagulated with Xarelto at home. Changed to Lovenox while hospitalized. Pharmacy to dose based off of renal function. Continue beta-candice and statin. Currently on Plavix and aspirin. Telemetry Stress test completed. Pending results. Results demonstrate some julita-infarct ischemia, and echo demonstrated decrease in EF. Cardiology is recommending angiogram at this time. (2) AICD discharge: (3) CHF (congestive heart failure): (4) Cystitis: (5) Acute hyperglycemia: (6) NAKUL (obstructive sleep apnea): (7) Chronic hyponatremia: Attestations 2 Medical Necessity Statement*: Needs continued evaluation in the hospital secondary to abnormal stress test with drop in ejection fraction, need for angiogram Diagnoses NSTEMI (non-ST elevated myocardial infarction) I21.4 AICD discharge Z45.02 CHF (congestive heart failure) I50.9 Cystitis N30.90 Acute hyperglycemia R73.9 NAKUL (obstructive sleep apnea) G47.33 Chronic hyponatremia E87.1 Time Spent (min) 24
--- NOTE | 2023-03-04 09:44 | PC.NURSE ---
return from cardiac stress test.pt tolerated well.
[2023-03-04] MEDS: citalopram 20 mg Tablet PO (09:57)
[2023-03-04] MEDS: clopidogrel 75 mg Tablet PO (09:57)
[2023-03-04] MEDS: sacubitril/valsartan 24-26 mg Tablet 4 EACH PO ×2 (09:57→17:52)
[2023-03-04] MEDS: aspirin 81 mg EC Tablet PO (09:57)
[2023-03-04] MEDS: tamsulosin 0.4 mg Capsule PO (09:57)
[2023-03-04] MEDS: amiodarone 200 mg Tablet 400 MG PO ×2 (09:57→17:51)
[2023-03-04] MEDS: carvedilol 3.125 mg Tablet PO ×2 (09:57→17:52)
[2023-03-04] MEDS: allopurinol 100 mg Tablet PO (09:58)
[2023-03-04] MEDS: atorvastatin 40 mg Tablet PO (09:58)
[2023-03-04] MEDS: FUROsemide 40 mg Tablet 60 MG PO ×2 (09:58→17:50)
[2023-03-04 11:04] LABS: Glucose Point of Care 248 mg/dL (70-110)
[2023-03-04] MEDS: enoxaparin 100 mg/mL Syringe SUBCUT ×2 (11:39→23:23)
[2023-03-04] MEDS: insulin lispro 100 unit/1 mL SUBCUT ×3 (11:39→21:21)
--- NOTE | 2023-03-04 11:46 | P.PN_ITS ---
Subjective 2 Subjective: Patient is doing well. no chest pain Vitals/I&O/Wt Last Vital Signs Temp 98.5 F 03/04/23 03:39 Pulse 77 03/04/23 08:58 Resp 20 H 03/04/23 03:39 BP 110/68 03/04/23 08:58 Pulse Ox 98 03/04/23 03:39 O2 Del Method Nasal Cannula 03/04/23 03:39 O2 Flow Rate 2 03/03/23 07:59 03/03/23 03/04/23 03/04/23 22:59 06:59 14:59 Intake Total 317.444 / 317.444 Output Total 750 / 1575 Balance -750 / -925 317.444 / 317.444 Weight last 48 hrs Weight 275 lb Weight 275 lb Weight 277 lb 1.6 oz Weight 270 lb Physical Exam 2 Narrative: GENERAL: Patient is alert, awake and oriented x3. [] NECK: No jugular vein distension. [] HEENT: No cyanosis. No icterus. No pallor. [] HEART: Regular S1 and S2. No murmur, rub or gallop. [] LUNGS: Clear to auscultate bilaterally. [] CENTRAL NERVOUS SYSTEM: Grossly nonfocal. [] EXTREMITIES: Lower extremities with 1+ edema bilaterally. Data 03/05/23 04:53 03/05/23 06:11 Micro: Microbiology 03/02/23 19:03 Urine Culture - Preliminary Urine,Clean Catch A&P Assessment and plan (1) Atrial fibrillation with rapid ventricular response: (2) AICD discharge: (3) NSTEMI (non-ST elevated myocardial infarction): (4) CHF (congestive heart failure): (5) S/P ICD (internal cardiac defibrillator) procedure: (6) Dyslipidemia: (7) DVT (deep venous thrombosis): Plan Stress test was abnormal. Given troponin elevation, we will proceed with coronary angiography with possible percutaneous coronary intervention. Risks and benefits discussed. N.p.o. after midnight. Continue Entresto and Coreg. IV hydration today for CKD. Diabetes management per primary team. Thank you for involving us with care of this patient. We will continue to follow. Please call with questions. Attestations 2 Medical Necessity Statement*: Care expected to cross 2 midnights. Coding Level of Care Code Acute Code for Chg Fwd Diagnoses Atrial fibrillation with rapid ventricular response I48.91 AICD discharge Z45.02 NSTEMI (non-ST elevated myocardial infarction) I21.4 CHF (congestive heart failure) I50.9 S/P ICD (internal cardiac defibrillator) procedure Z95.810 Dyslipidemia E78.5 DVT (deep venous thrombosis) I82.409
[2023-03-04 17:49] LABS: Glucose Point of Care 274 mg/dL (70-110)
--- NOTE | 2023-03-04 18:00 | PC.NURSE ---
missed dose ceftriaxone this morning.was not up rith a.m. meds or coded pink
[2023-03-04] MEDS: sodium chloride 0.9% 1,000 ML 50 ML IV (19:50)
[2023-03-04] MEDS: insulin glargine 100 units/1 mL 50 UNIT SUBCUT (21:22)
[2023-03-04 22:28] LABS: Glucose Point of Care 267 mg/dL (70-110)
[2023-03-05] VITALS (8 sets, daily range): BP systolic 127–154; BP diastolic 72–83; PULSE 73–82; RESP 16–19; TEMP 36.6–37.1; O2SAT 91–94
[2023-03-05 05:20] LABS: Basophils % 0.4 %; Eosinophils # 0.2 10^3/uL (0.0-0.8); Eosinophils % 2.3 %; Hematocrit 37.6 % (37-53); Lymphocytes # 1.9 10^3/uL (0.8-4.8); Lymphocytes % 27.1 %; Mean Corpuscular HGB Conc 30.9 g/dL (30-55); Mean Corpuscular Hemoglobin 26.9 pg (27-33); Mean Platelet Volume 10.7 fL (7.4-10.4); Monocytes # 0.5 10^3/uL (0.2-0.9); Monocytes % 7.5 %; Neutrophils # 4.24 10^3/uL (1.8-7.7); Neutrophils % 62.3 %; Nucleated Red Blood Cells % 0 %; Platelet Count 204 10^3/cmm (157-399); Red Blood Count 4.32 10^6/uL (3.85-5.65); Red Cell Distribution Width 16.3 % (12.1-15.1); White Blood Count 6.82 10^3/uL (3.29-11.43)
[2023-03-05 06:18] LABS: Glucose Point of Care 174 mg/dL (70-110)
--- NOTE | 2023-03-05 06:40 | XACV_ITS ---
Exam Room: [facility] Ht: 180 cm Wt: 91 kg BSA: 2.15 m2 Gender: Male : 1960 Any Known Allergies: No known allergies Exam Priority: Routine Procedure(s): Procedure Description: Diagnostic procedure Procedure Description: Left Heart Catheterization Procedure Description: Miscellaneous Procedure Description: ACT Procedure Description: Coronary Angiography Diagnostic Cath Status: Elective Diagnostic Findings * INDICATION: Abnormal stress test/ troponin elevation/ LV dysfunction. * Left Main has no significant disease. * Left Anterior Descending has no significant disease. * Circumflex has mild luminal irregularities. * Distal Right Coronary Artery: minimal 30% stenosis, MISTY: 3 flow. * Coronary angiography shows right dominance. Conclusions 1. Nonobstructive CAD. 2. Nonischemic cardiomyopathy. Recommendations * Aggressive risk factor modification. * Guideline directed heart failure therapy. * Outpatient cardiology follow up in 2 weeks. Interventional RX Recommendation: medical therapy and/or counseling Diagnostic RX Recommendation: medical therapy and/or counseling Anticoagulation: Heparin Pressures Phase:Rest AO : 95 / 66 ( 84 ) @ 8:58:00 AM 130 / 75 ( 98 ) @ 9:08:00 AM 129 / 75 ( 97 ) @ 9:08:00 AM LV : 113 / 7 / 20 @ 9:08:00 AM 138 / 3 / 23 @ 9:08:00 AM Valves Phase:DefaultPhase AV : 8.0 @ 9:15:39 AM AV Mean Gradient: 10.0 @ 9:15:39 AM Clinical Evaluation EBL: 5mL-10mL Procedural Details Procedure Consent Obtained. Current Diagnosis : Chest Pain. Pre-Procedure Time Out. Identified patient by full name and date of as verbalized by the patient/guarantor. Does the consent match the physician's order: Yes. Accurate & Complete Informed Consent: Yes. Inpatient/Outpatient History & Physical on Chart: Yes. If H&P is completed, is and addenduem needed: No; If yes, is the addendum complete: N/A. Visualize and Verify Site with Patient/Guarantor: N/A. Relevant Radiology Images available: Yes. Pre-op teaching completed and patient verbalized understanding. The risks, benefits, and alternatives of sedation and/or procedure were discussed by physician. The patient agrees to continue. Procedure started. [facility] Clinical Fraility Score: 3: Managing Well. Call Center Dispatcher Indications: Suspected CAD. Chest Pain Symptom Assessment: Atypical Angina. Current diagnosis: Chest Pain. PERRLA. Strong, equal hand credit collections manager bilaterally. Lungs clear x 5 lobes. IV Site on Arrival: 18 gauge in the right anticubital. IV Fluids: 0.9% NaCl at KVO. 600 mL infused prior to clinical lab clerk. Oxygen started at 2liters/min via nasal canula. right groin was prepped with chloroprep then draped in the usual sterile fashion. right radial was prepped with chloroprep then draped in the usual sterile fashion. Baseline sample Acquired. HR: 80 BPM. Physician arrived. A 20 gauge IV was started in the left forearm using aseptic technique. Physician scrubbed in. Immediate Pre-Procedure Time Out. Correct Patient: Yes; Correct Procedure: Yes; Correct Site: Yes; Correct Patient Position: Yes; Correct Supplies: Yes; Dried Flammable Prep: Yes; Blood Products Available: N/A;. Lidocaine 1% infiltrated to the right radial. Arterial access obtained. A 5 mauritanian TIG catheter in over wire. Multiple views taken of left coronary artery. Catheter redirected to the RCA. Catheter removed over the exchange wire. A 5 mauritanian JL3.5 catheter in over wire. Multiple views taken of left coronary artery. Catheter removed over the exchange wire. A 5 mauritanian JR4 catheter in over wire. Multiple views taken of right coronary artery. EDP Sample taken: LV 113/7,20; HR: 73 BPM; SpO2: 95%. Pullback taken: LV 138/3,23; AO 130/75(98); Mean: 10mmHg, Peak to Peak: 8mmHg, SEP: 18sec/min; HR: 74 BPM; SpO2: 95%. Catheter removed over the exchange wire. A TR Band was successful obtaining hemostatsis at the Right Radial artery insertion site. Vital chart was stopped. Post Procedure: Pulses reassessed and unchanged. PERRLA. Strong, equal hand credit collections manager bilaterally. No VTE prophylaxis required. Medication's Wasted: Lidocaine 1% = 2 mL. Medication's Wasted: Nitro = 49.8 mcg. Medication's Wasted: Heparin = 1000 units. Total IV fluids: 31 mL. Complications: None. Estimated blood loss: 5mL-10mL. Responsiveness - Normal response to verbal stimuli; alert and oriented, PERRLA. Airway - Unaffected, no intervention required; spontaneous ventilation. Circulation: W/N/L, pulses unchanged. Nausea/Vomiting: No. Procedure completed. Patient transferred by bed to 1st floor. Access Site Site: Right Radial artery Sheath Size: 6 Fr Hemostasis Method: TR Band Hemostasis Success: Successful Procedure Medications Start: 8:45 AM Stop: 8:45 AM Medication: Versed Amount: 1 mg Route: I.V. Start: 8:45 AM Stop: 8:45 AM Medication: Fentanyl Amount: 50 mcg Route: I.V. Start: 8:50 AM Stop: 8:50 AM Medication: Versed Amount: 1 mg Route: I.V. Start: 8:55 AM Stop: 8:55 AM Medication: Nitrogylcerin Amount: 200 mcg Route: I.A. Start: 8:57 AM Stop: 8:57 AM Medication: Heparin Amount: 5000 units Route: I.V. Start: 9:06 AM Stop: 9:06 AM Medication: Fentanyl Amount: 50 mcg Route: I.V. I, the attending physician, have reviewed and verified all procedure medications. Yes, all medications given per verbal order History/Risk Factors Hypertension: No Dyslipidemia: Yes Peripheral Arterial Disease (PAD): No Myocardial Infarction (OR): No Obesity: No Renal Disease: No Tobacco Use: Never Prior Interventions PCI: No CABG: No Valve Surgery: No Report Signatures Finalized by Santiago Walden MD on 03/19/2023 08:52 AM
[2023-03-05 06:55] LABS: Blood Urea Nitrogen 34 mg/dL (8-23); Calcium 9.2 mg/dL (8.5-10.5); Carbon Dioxide 21 mmol/L (22-29); Chloride 102 mmol/L (98-107); Glomerular Filtration Rate 51.2 mL/min (90-130); Glucose 176 mg/dL (65-115); Osmolality Calculated 290 mOsm/kg (285-295); Sodium 134 mmol/L (136-145)
--- NOTE | 2023-03-05 07:44 | P.PN_ITS ---
Subjective 2 Subjective: Patient is doing well. No chest pain Vitals/I&O/Wt Last Vital Signs Temp 97.9 F 03/05/23 07:14 Pulse 82 03/05/23 07:14 Resp 19 H 03/05/23 07:14 BP 154/83 03/05/23 07:14 Pulse Ox 94 03/05/23 07:14 O2 Del Method Room Air 03/05/23 07:14 O2 Flow Rate 2 03/03/23 07:59 03/04/23 03/05/23 03/05/23 22:59 06:59 14:59 Intake Total 1000 / 1317.444 0 / 1317.444 Output Total 475 / 475 500 / 975 Balance 525 / 842.444 -500 / 342.444 Weight last 48 hrs Weight 200 lb 12.8 oz Weight 275 lb Physical Exam 2 Narrative: GENERAL: Patient is alert, awake and oriented x3. [] NECK: No jugular vein distension. [] HEENT: No cyanosis. No icterus. No pallor. [] HEART: Regular S1 and S2. No murmur, rub or gallop. [] LUNGS: Clear to auscultate bilaterally. [] CENTRAL NERVOUS SYSTEM: Grossly nonfocal. [] EXTREMITIES: Lower extremities with 1+ edema bilaterally. Data 03/05/23 04:53 03/05/23 06:11 Micro: Microbiology 03/02/23 17:24 Blood Culture - Preliminary Blood 03/02/23 17:20 Blood Culture - Preliminary Blood 03/02/23 19:03 Urine Culture - Preliminary Urine,Clean Catch A&P Assessment and plan (1) Atrial fibrillation with rapid ventricular response: (2) AICD discharge: (3) NSTEMI (non-ST elevated myocardial infarction): (4) CHF (congestive heart failure): (5) S/P ICD (internal cardiac defibrillator) procedure: (6) Dyslipidemia: (7) DVT (deep venous thrombosis): Plan Coronary angiogram did not show severe CAD ICD firing secondary to afib with RVR. Patient put on amiodarone. Continue coreg. Continue enteresto. Continue enteresto Diabetes management per primary team. Thank you for involving us with care of this patient. Patient is stable to be discharged from cardiology standpoint. Please call with questions. Attestations 2 Medical Necessity Statement*: Care expected to cross 2 midnights. Coding Level of Care Code Acute Code for Chg Fwd Diagnoses Atrial fibrillation with rapid ventricular response I48.91 AICD discharge Z45.02 NSTEMI (non-ST elevated myocardial infarction) I21.4 CHF (congestive heart failure) I50.9 S/P ICD (internal cardiac defibrillator) procedure Z95.810 Dyslipidemia E78.5 DVT (deep venous thrombosis) I82.409
--- NOTE | 2023-03-05 08:01 | P.PN_ITS ---
Subjective 2 Subjective: Patient was evaluated this morning while lying in bed on room air. Patient reports that he feels better overall. No chest pain complaints at overnight. Patient remained n.p.o. for left heart cath that will be performed this a.m. No other complaints this time. Medications: Reviewed: Yes Vitals/I&O/Wt Last Vital Signs Temp 97.9 F 03/05/23 07:14 Pulse 82 03/05/23 07:14 Resp 19 H 03/05/23 07:14 BP 154/83 03/05/23 07:14 Pulse Ox 94 03/05/23 07:14 O2 Del Method Room Air 03/05/23 07:14 O2 Flow Rate 2 03/03/23 07:59 03/04/23 03/05/23 03/05/23 22:59 06:59 14:59 Intake Total 1000 / 1317.444 0 / 1317.444 Output Total 475 / 475 500 / 975 Balance 525 / 842.444 -500 / 342.444 Weight last 48 hrs Weight 91.081 kg Weight 124.738 kg Physical Exam 2 Narrative: General: Alert, able to answer questions appropriately, obese HEENT: Normocephalic, dry mucous membranes Neck: Supple Lymph: No lymphadenopathy noted Chest: Even rise and normal to inspection Respiratory: Respirations even, lung sounds clear/diminished to auscultation, on room air Cardio: A-fib on telemetry, irregular, pulses 2+ radial and dorsalis pedis. Trace edema throughout GI: Round, obese, active bowel sounds : Deferred Neuro: Alert and oriented x 4, able to answer questions appropriately Skin: Injection subcutaneous necrosis to RLQ and LLQ sites Data 03/05/23 04:53 03/05/23 06:11 Other Labs: Sodium 134 BUN 34, creatinine 1.4 glucose 176 Micro: Microbiology 03/02/23 17:24 Blood Culture - Preliminary Blood 03/02/23 17:20 Blood Culture - Preliminary Blood 03/02/23 19:03 Urine Culture - Preliminary Urine,Clean Catch Myocardial perfusion scan: Radiologist's impression: IMPRESSIONS 1. Myocardial perfusion imaging revealing small to moderate area of persistent decreased tracer uptake involving the inferior and apical segments with some reversibility suggesting myocardial scarring both possible julita-infarction ischemia around the apex, mostly in the distribution of the right coronary artery/circumflex artery. 2. Markedly diminished LV ejection fraction 25%. 3. LV wall motion normalities as mentioned above 4. Moderately dilated LV cavity with an end-systolic volume of 200 mL. No similar previous studies are available for comparison A&P Assessment and plan (1) NSTEMI (non-ST elevated myocardial infarction): Fully anticoagulated with Xarelto at home. Changed to Lovenox while hospitalized. Pharmacy to dose based off of renal function. Continue beta-candice and statin. Currently on Plavix and aspirin. Telemetry Cardiology consultation. Recommendations appreciated Patient will undergo left heart cath this a.m. due to significant findings on myocardial perfusion scan that was performed yesterday. No chest pain or chest discomfort complaints throughout the night. CBC, BMP, magnesium in AM. (2) AICD discharge: No acute events overnight. As per #1 Remains on amiodarone p.o. (3) CHF (congestive heart failure): Trace edema throughout Home regimen of 60 mg twice daily Lasix CBC and BMP, magnesium in a.m. Stable (4) Cystitis: Pending urine culture. Continue IV antibiotic regimen with Rocephin. (5) Acute hyperglycemia: Insulin sliding scale Accu-Cheks ACHS Consistent carb diet (6) NAKUL (obstructive sleep apnea): BiPAP at nighttime. (7) Chronic hyponatremia: Resolved BMP in a.m. Plan Plan as stated above. Left heart cath today with cardiology. Myocardial perfusion scan results as stated above. Will continue IV Rocephin for symptomatic dysuria pending urine culture. Labs in AM. Anticipate discharge in the next 12 to 24 hours. Penchant will return home once stable for discharge. DVT prophylaxis: Lovenox Code status: Full code. Coding Level of Care Code Acute Code for Chg Fwd Diagnoses NSTEMI (non-ST elevated myocardial infarction) I21.4 AICD discharge Z45.02 CHF (congestive heart failure) I50.9 Cystitis N30.90 Acute hyperglycemia R73.9 NAKUL (obstructive sleep apnea) G47.33 Chronic hyponatremia E87.1
--- NOTE | 2023-03-05 08:27 | W.PM.OPSUD ---
Surgery/Procedure H&P Update DATE OF PROCEDURE: March 05, 2023 DATE H&P PERFORMED: 03/03/23 H&P UPDATE INFORMATION: I have reviewed H&P completed within last 30 days, I have examined patient prior to procedure and No changes to prior documentation PREOP DIAGNOSIS: Troponin elevation/abnormal stress test PRIMARY INDICATION FOR PROCEDURE: Troponin elevation/abnormal stress test PLANNED PROCEDURE: Left heart cath with possible percutaneous coronary intervention PATIENT REASSESSED PRIOR TO SEDATION, WITH NO CHANGE NOTED: Yes PHYSICAL EXAM: alert, oriented x 3, clear to auscultation bilaterally and regular rate & rhythm AIRWAY EVAL/ANESTHESIA PLAN: normal airway, ASA III, Local Anesthesia, Risks, benefits & alternatives of sedation and/or procedure discussed and Patient agrees to continue as planned
[2023-03-05] MEDS: cefTRIAXone 1,000 MG in sodium chloride 0.9% (plus) 50 ML 100 MG IV (09:45)
[2023-03-05] MEDS: insulin lispro 100 unit/1 mL SUBCUT (09:46)
[2023-03-05] MEDS: FUROsemide 40 mg Tablet 60 MG PO (09:47)
[2023-03-05] MEDS: tamsulosin 0.4 mg Capsule PO (09:48)
[2023-03-05] MEDS: sennosides-docusate Tablet 1 TAB PO (09:48)
[2023-03-05] MEDS: carvedilol 3.125 mg Tablet PO (09:48)
[2023-03-05] MEDS: amiodarone 200 mg Tablet 400 MG PO (09:48)
[2023-03-05] MEDS: atorvastatin 40 mg Tablet PO (09:49)
[2023-03-05] MEDS: clopidogrel 75 mg Tablet PO (09:50)
[2023-03-05] MEDS: aspirin 81 mg EC Tablet PO (09:50)
[2023-03-05] MEDS: allopurinol 100 mg Tablet PO (09:50)
[2023-03-05] MEDS: citalopram 20 mg Tablet PO (09:50)
[2023-03-05] MEDS: sacubitril/valsartan 24-26 mg Tablet 4 EACH PO (09:50)
[2023-03-05 11:46] LABS: Glucose Point of Care 303 mg/dL (70-110)
--- NOTE | 2023-03-05 11:56 | PC.SOCIAL ---
IMM Update pg 2 of IMM updated and reviewed w/ patient. Copy provided and copy dated, initialed and placed in chart.
[2023-03-05] MEDS: enoxaparin 100 mg/mL Syringe SUBCUT (14:13)
--- NOTE | 2023-03-05 14:27 | P.DS_ITS ---
Discharge Providers Date of Admission: 03/02/23 21:32 Date of Discharge: March 05, 2023 Attending Provider at Admission: Mayra Piña MD Attending Provider at Discharge: Alex Zimmer MD Primary Care Provider: Rochelle Rodriges MD Diagnoses at Discharge Discharge Diagnosis (1) NSTEMI (non-ST elevated myocardial infarction): Status: Acute (2) AICD discharge: Status: Acute (3) CHF (congestive heart failure): Status: Acute (4) Cystitis: Status: Acute (5) Acute hyperglycemia: Status: Acute (6) NAKUL (obstructive sleep apnea): Status: Acute (7) Chronic hyponatremia: Status: Acute Reason for Visit Reason for Visit: CHEST PAIN Hospital Course Hospital Course Eliseo is a 62-year-old white male who presented to the hospital after his defibrillator fired. There was concerned about his troponin elevation. He was anticoagulated, placed on Plavix, aspirin and his statin was continued. Cardiology was consulted. He was placed on amiodarone secondary to the firing of his defibrillator. Cardiology later under investigation found this was A-fib with RVR, with failure of overdrive pacing. Echocardiogram demonstrated an EF of 25%, lower than previous. Secondary to this, troponin elevation, angiogram was performed. This did not show any flow-limiting abnormalities according to conversation I had with cardiology. Following the angiogram site the patient to go home, with medication changes to include addition of amiodarone. Carvedilol dose was also decreased. There was some concern of UTI but culture was negative at discharge. Patient is given opportunity ask questions and agreed with the plan. Physical Exam Narrative: General exam no distress Neck is supple Cardiovascular regular rate and rhythm without murmur Lungs clear Abdomen is soft Extremities no cyanosis clubbing or edema, right wrist angiogram site without significant hematoma, and full function was noted. Discharge Data Studies Completed and Pending Completed Studies During Hospitalization Category Date Time Status Cardiac Stress Test MIBI [Sestamibi Stress Test Request Exams 03/04/23 06:56 Draft ] Routine XR chest 1V portable [id number] Stat Exams 03/02/23 18:50 Completed NM kathrin perf SPECT r/s* [id number] Routine Nuc Med 03/04/23 06:57 Completed CV. 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 Laboratory Results WBC 6.82 10^3/uL (3.29-11.43) 03/05/23 04:53 RBC 4.32 10^6/uL (3.85-5.65) 03/05/23 04:53 Hgb 11.60 g/dL (11.27-16.99) 03/05/23 04:53 Hct 37.6 % (37-53) 03/05/23 04:53 MCV 87.0 fl (82-101) 03/05/23 04:53 MCH 26.9 pg (27-33) L 03/05/23 04:53 MCHC 30.9 g/dL (30-55) 03/05/23 04:53 RDW 16.3 % (12.1-15.1) H 03/05/23 04:53 Plt Count 204 10^3/cmm (157-399) D 03/05/23 04:53 MPV 10.7 fL (7.4-10.4) H 03/05/23 04:53 Neut % (Auto) 62.3 % 03/05/23 04:53 Lymph % (Auto) 27.1 % 03/05/23 04:53 [place] % (Auto) 7.5 % 03/05/23 04:53 Eos % (Auto) 2.3 % 03/05/23 04:53 Baso % (Auto) 0.4 % 03/05/23 04:53 Neut # (Auto) 4.24 10^3/uL (1.8-7.7) 03/05/23 04:53 Lymph # (Auto) 1.9 10^3/uL (0.8-4.8) 03/05/23 04:53 [place] # (Auto) 0.5 10^3/uL (0.2-0.9) 03/05/23 04:53 Eos # (Auto) 0.2 10^3/uL (0.0-0.8) 03/05/23 04:53 Baso # (Auto) 0.0 10^3/uL (0.0-0.1) 03/05/23 04:53 Nucleated RBC % (auto) 0 % 03/05/23 04:53 Nucleated RBCs # 0.0 /100WBC 03/05/23 04:53 Specimen Type Arterial 03/02/23 19:59 Sample Site Radial, left 03/02/23 19:59 ABG pH 7.43 (7.35-7.45) 03/02/23 19:59 ABG pCO2 35.1 mmHg (35-45) 03/02/23 19:59 ABG pO2 88.0 mmHg (80.0-100.0) 03/02/23 19:59 ABG PO2/FiO2 Ratio 0 03/02/23 19:59 ABG HCO3 23.5 mmol/L (22-26) 03/02/23 19:59 ABG Base Excess -0.4 mmol/L (-2.0-2.0) 03/02/23 19:59 Lalito Test Pos 03/02/23 19:59 Hematocrit 37.3 % (42-52) L 03/02/23 19:59 O2 Delivery Device Nc 03/02/23 19:59 O2 Liters/Min 2.0 % 03/02/23 19:59 FiO2 28.0 % 03/02/23 19:59 Technician Automatic ID [place] 03/02/23 19:59 Sodium 134 mmol/L (136-145) L 03/05/23 06:11 Potassium 4.0 mmol/L (3.5-5.1) 03/05/23 06:11 Chloride 102 mmol/L (98-107) 03/05/23 06:11 Carbon Dioxide 21 mmol/L (22-29) L 03/05/23 06:11 Anion Gap 15.0 (5-19) 03/05/23 06:11 BUN 34 mg/dL (8-23) H 03/05/23 06:11 Creatinine 1.4 mg/dL (0.7-1.2) H 03/05/23 06:11 GFR Calculation 51.2 mL/min (90-130) L 03/05/23 06:11 Glucose 176 mg/dL (65-115) H 03/05/23 06:11 POC Glucose 303 mg/dL (70-110) H 03/05/23 11:40 Estimat Average Glucose 209 03/02/23 19:10 Hemoglobin A1c 8.9 % (4.0-6.0) H 03/02/23 19:10 Calculated Osmolality 290 mOsm/kg (285-295) 03/05/23 06:11 Lactic Acid 2.0 mmol/L (0.5-2.2) 03/02/23 19:10 Calcium 9.2 mg/dL (8.5-10.5) 03/05/23 06:11 Phosphorus 3.9 mg/dL (2.5-4.5) 03/03/23 04:55 Magnesium 2.7 mg/dL (1.7-2.3) H 03/04/23 03:15 Total Bilirubin 0.5 mg/dL (0.15-1.2) 03/04/23 03:15 AST 19 U/L (0-40) 03/04/23 03:15 ALT 15 U/L (0-41) 03/04/23 03:15 Alkaline Phosphatase 76 U/L (40-130) 03/04/23 03:15 Troponin T Baseline 84 ng/L (0-15) H 03/02/23 19:10 Troponin T 120 Minute 95.39 ng/L (0-15) H 03/02/23 20:47 Delta Troponin T 11.39 ABS# (0-10) H* 03/02/23 20:47 Troponin T Hi Sens 6Hr 88.01 ng/L (0-15) H 03/03/23 00:58 Troponin T Hi Sens 6Hr Delta 4.01 ng/L (0-12) 03/03/23 00:58 C-Reactive Protein 185.3 mg/L (0.0-4.9) H 03/03/23 04:55 NT-Pro-B Natriuret Pep 8158 pg/mL (0-125) H 03/02/23 19:10 Total Protein 6.5 g/dL (6.6-8.7) L 03/04/23 03:15 Albumin 2.9 g/dL (3.5-5.2) L 03/04/23 03:15 Globulin 3.6 g/dL (1.3-4.6) 03/04/23 03:15 Vitamin B12 241 pg/mL (232-1245) 03/02/23 19:10 TSH 1.12 uIU/mL (0.27-4.20) 03/02/23 19:10 TSH 1.12 uIU/mL (0.27-4.20) 03/02/23 19:10 Urine Color Yellow (Yellow) 03/02/23 19:03 Urine Appearance Clear (CLEAR) 03/02/23 19:03 Urine pH 5 (5-7) 03/02/23 19:03 Ur Specific [place] 1.005 (1.005-1.030) 03/02/23 19:03 Urine Protein 2+ (Negative) H 03/02/23 19: Urine Glucose (UA) 4+ (Normal) H 03/02/23 19: Urine Ketones 1+ (Negative) H 03/02/23 19: Urine Blood 3+ (Negative) H 03/02/23 19:03 Urine Nitrate Negative (Negative) 03/02/23 19: Urine Bilirubin Neg (Negative) 03/02/23 19: Urine Urobilinogen Norm mg/dL (Negative) 03/02/23 19:03 Ur Leukocyte Esterase Negative (Negative) 03/02/23 19:03 Urine RBC 5-10 /hpf (0-2) H 03/02/23 19:03 Urine WBC 15-25 /hpf (0-5) H 03/02/23 19:03 Ur Squamous Epith Cells 0-4 /hpf (0-5) H 03/02/23 19:03 Amorphous Sediment Not Reportable 03/02/23 19:03 Urine Bacteria 1+ /hpf (NONE) H 03/02/23 19:03 Urine Mucus Trace /hpf 03/02/23 19:03 Serum Ketones Negative (Negative) 03/02/23 19:10 Adenovirus (PCR) Not detected (NOT DETECT) 03/02/23 19: C. pneumoniae DNA (PCR) Not detected (NOT DETECT) 03/02/23 19: Coronavirus 229E (PCR) Not detected (NOT DETECT) 03/02/23 19: Human Metapneumovir PCR Not detected (NOT DETECT) 03/02/23 19: Influenza A (H1) PCR Not detected (NOT DETECT) 03/02/23 19: Influ A (H1/09) PCR Not detected (NOT DETECT) 03/02/23 19:00 Influenza A (H3) PCR Not detected (NOT DETECT) 03/02/23 19:00 Influenza Type A (PCR) Not detected (NOT DETECT) 03/02/23 19:00 Influenza Type B (PCR) Not detected (NOT DETECT) 03/02/23 19:00 M. pneumoniae (PCR) Not detected (NOT DETECT) 03/02/23 19:00 Parainfluenza 1 (PCR) Not detected (NOT DETECT) 03/02/23 19:00 Parainfluenza 2 (PCR) Not detected (NOT DETECT) 03/02/23 19:00 Parainfluenza 3 (PCR) Not detected (NOT DETECT) 03/02/23 19:00 Parainfluenza 4 (PCR) Not detected (NOT DETECT) 03/02/23 19:00 RSV Type A (PCR) Not detected (NOT DETECT) 03/02/23 19:00 RSV Type B (PCR) Not detected (NOT DETECT) 03/02/23 19:00 Entero/Rhino (PCR) Not detected (NOT DETECT) 03/02/23 19:00 SARS-CoV-2 (PCR) Not detected (NOT DETECT) 03/02/23 19:00 Vitals Last Vital Signs Temp 98.0 F 03/05/23 11:36 Pulse 75 03/05/23 11:36 Resp 19 H 03/05/23 11:36 BP 128/79 03/05/23 11:36 Pulse Ox 93 03/05/23 11:36 O2 Del Method Room Air 03/05/23 11:36 O2 Flow Rate 2 03/03/23 07:59 Discharge Plan Discharge Patient Disposition: Home Condition: Stable Prescriptions: New carvedilol 3.125 mg Tablet 3.125 mg PO BID Qty: 60 0RF amiodarone 200 mg tablet 200 mg PO BID Qty: 60 0RF Continued Jardiance 25 mg tablet 25 mg PO DAILY insulin aspart U-100 [Novolog U-100 Insulin aspart] 100 unit/mL solution 60 unit SUBCUT TID Tresiba U-100 Insulin 100 unit/mL solution 100 unit SUBCUT DAILY Trulicity 1.5 mg/0.5 mL pen injector 1.5 mg SUBCUT .WEEKLY Rx Instructions: Friday atorvastatin 40 mg tablet 80 mg PO BEDTIME spironolactone 25 mg tablet 25 mg PO DAILY citalopram 20 mg tablet 20 mg PO DAILY allopurinol 100 mg tablet 100 mg PO DAILY Xarelto 20 mg tablet 20 mg PO DAILY terazosin 1 mg capsule 1 mg PO BEDTIME furosemide 40 mg tablet 60 mg PO BID Entresto 97-103 mg tablet 1 tab PO BID Qty: 120 2RF albuterol sulfate 90 mcg/actuation HFA aerosol inhaler 2 inh INHALATION Q4H PRN (Reason: shortness of breath or wheezing) Qty: 6.7 1RF ergocalciferol (vitamin D2) 1,250 mcg (50,000 unit) capsule 50,000 unit PO DIRECTED Rx Instructions: take one capsule once weekly on friday aspirin 81 mg tablet,chewable 81 mg PO DAILY Discontinued doxycycline hyclate 100 mg tablet 100 mg PO BID 7 Days Qty: 14 0RF carvedilol 25 mg tablet 25 mg PO BID Discharge Orders: Discharge Order (Routine); Ordered 03/05/23 Ordered By: Alex Zimmer Referrals: Rochelle Rodriges MD [Primary Care Provider] - 03/10/23 1:45 pm Magda Perdomo FNP [Nurse Practitioner] - 03/14/23 11:00 am Discharge Diet: Cardiac and Diabetic Discharge Activity: Increase activity as tolerated Patient Instructions: Amiodarone (By mouth) (Cordarone, Pacerone), Carvedilol (By mouth) (Coreg, Coreg CR, Hypertenevide-12.5), Heart Catheterization (DC), CHF Stoplight, Opioid Safety, Post Angiogram Home Care Instructions, Obstructive Sleep Apnea Activity Restrictions/Additional Instructions: Take all medicine as prescribed Follow-up with cardiology 1 week, primary care provider 3 to 5 days Return for any concerns Note medication changes. Amiodarone has been added. Coreg has been decreased. Discharge Attestations Time Spent in Discharge Care*: greater than 30 min Quality Metrics Clinical Quality Measures [ No reported AMI, CVA or VTE this stay] Coding Level of Care Code 40437 Total time (in minutes) for Discharge: 38 Diagnoses NSTEMI (non-ST elevated myocardial infarction) I21.4 AICD discharge Z45.02 CHF (congestive heart failure) I50.9 Cystitis N30.90 Acute hyperglycemia R73.9 NAKUL (obstructive sleep apnea) G47.33 Chronic hyponatremia E87.1
== END 2023-03-05 17:23 | disposition home or self-care (01) | DRG 286 ==
LOC: ER 20:59 → CSU 22:14
PROVIDERS: Internal Medicine; Admitting Provider Internal Medicine; Emergency Provider Emergency Medicine; PCP Internal Medicine; Visit Provider Internal Medicine
PROC: B211YZZ Fluoroscopy of Multiple Coronary Arteries using Other Contrast (ICD-10-PCS; principal; 2023-03-05 08:30)
DX: I49.01 Ventricular fibrillation (principal); I50.21 Acute systolic (congestive) heart failure; E87.1 Hypo-osmolality and hyponatremia; E11.65 Type 2 diabetes mellitus with hyperglycemia; G47.30 Sleep apnea, unspecified; T38.3X6A Underdosing of insulin and oral hypoglycemic [antidiabetic] drugs, initial encounter; E78.5 Hyperlipidemia, unspecified; G47.33 Obstructive sleep apnea (adult) (pediatric); I42.0 Dilated cardiomyopathy; I48.91 Unspecified atrial fibrillation; N30.90 Cystitis, unspecified without hematuria; E86.1 Hypovolemia; Z11.52 Encounter for screening for COVID-19; Z95.810 Presence of automatic (implantable) cardiac defibrillator; Z91.128 Patient's intentional underdosing of medication regimen for other reason; Z79.4 Long term (current) use of insulin; Z79.82 Long term (current) use of aspirin; Z79.84 Long term (current) use of oral hypoglycemic drugs; Z79.01 Long term (current) use of anticoagulants; Z86.718 Personal history of other venous thrombosis and embolism; Z82.3 Family history of stroke; Z82.49 Family history of ischemic heart disease and other diseases of the circulatory system
CPT/HCPCS: 36415; 36416; 36600; 71045; 78452; 80048; 80053; 81001; 82009; 82607; 82803; 82962; 83036; 83605; 83735; 83880; 84100; 84443; 84484; 85025; 86140; 87040; 87086; 87426; 87486; 87581; 87633; 87804; 90471; 90686; 90732; 93005; 93017; 93306; 93458; 96365; 96367; 96372; 96375; 96376; 99152; 99153; 99285; A4222; A9500; C1769; C1887; C1894; J0283; J0696; J1644; J1650; J1815; J1940; J2250; J2405; J2543; J2785; J3010; J3370; J3490; J7030; Q9967

== ENCOUNTER → 2023-03-14 11:03 | Outpatient (BNVA) | payer MEDICARE, SELFPAY | PROVIDERS: PCP Internal Medicine; Visit Provider Nurse Practitioner Family | DX: I48.0 Paroxysmal atrial fibrillation (principal); Z45.02 Encounter for adjustment and management of automatic implantable cardiac defibrillator; I45.9 Conduction disorder, unspecified; R94.31 Abnormal electrocardiogram [ECG] [EKG] | CPT/HCPCS: 93005; 99214 ==

== ENCOUNTER 2023-04-28 10:25 | Inpatient (IN) | payer MEDICARE, MEDICAID, SELFPAY ==
[2023-04-28] VITALS (9 sets, daily range): BP systolic 102–154; BP diastolic 73–88; PULSE 70–112; RESP 20–27; TEMP 36.6–37.1; O2SAT 92–98; BMI 37.6; BMI 39.1
--- NOTE | 2023-04-28 10:33 | XRR_ITS ---
PROCEDURE INFORMATION: Exam: XR Chest Exam date and time: 04/28/2023 10:50 AM Age: 62 years old Clinical indication: Fever and shortness of breath; Prior surgery; Surgery date: 6+ months; Surgery type: Pacer defibsext; Additional info: SOB, fever TECHNIQUE: Imaging protocol: Radiologic exam of the chest. Views: 1 view. COMPARISON: CR XR chest 1V portable [id number] 03/02/2023 7:06 PM FINDINGS: Tubes, catheters and devices: Single lead pacemaker/defibrillator. Lungs: Vascular prominence with interstitial edema and small pleural effusions indicate mild congestive heart failure. The appearance is similar to what was seen previously. Pleural spaces: See Lungs finding. Heart/Mediastinum: Mild cardiomegaly accentuated by the AP positioning. Bones/joints: Unremarkable. XR/XR chest 1V portable [id number] IMPRESSION: 1. Persistent cardiomegaly and cardiac decompensation/mild CHF. 2. No significant change.
--- NOTE | 2023-04-28 14:21 | ECG_ITS ---
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 Measurements Intervals [place] Rate: 110 P: 0 IA: 0 QRS: 9 QRSD: 115 T: 166 QT: 323 QTc: 439 Interpretive Statements ATRIAL FIBRILLATION WITH RAPID VENTRICULAR RESPONSE WITH ABERRANT CONDUCTION OR VENTRICULAR PREMATURE COMPLEXES LOW QRS VOLTAGE IN EXTREMITY LEADS [QRS DEFLECTION < 0.5 mV IN LIMB LEADS] ANTEROSEPTAL MYOCARDIAL INFARCTION , OF INDETERMINATE AGE [40+ ms Q WAVE IN V1-V4] Compared to ECG 03/14/2023 11:11:27 Ventricular premature complex(es) now present Aberrant conduction of supraventricular beat(s) now present Low QRS voltage now present First degree AV block no longer present Intraventricular conduction delay no longer present T-wave abnormality no longer present Prolonged QT interval no longer present Electronically Signed On 04-28-2023 16:16:01 ADJUDICATION SPECIALIST by Santiago Walden M.D. [id number]
--- NOTE | 2023-04-28 14:21 | ED_ITS ---
HPI - SOB/Dyspnea 2 General: Chief Complaint: Upper Respiratory Infection Stated Complaint: sob, cough Time Seen by Provider: 04/28/23 13:52 Source: patient Mode of arrival: wheelchair Limitations: no limitations History of Present Illness: HPI Narrative: Patient is a 62-year-old male with a history of diabetes, dilated cardiomyopathy, ICD in place, history of congestive heart failure-last echocardiogram showing an EF of 25%, anemia, sleep apnea, dyslipidemia, and intermittent atrial fibrillation here for follow-up with his as they both have been ill with URI-like symptoms for 2 to 3 weeks. Patient states he was placed on antibiotics by his PCP but they do not seem to be improving his symptoms. He states PCP also increased his furosemide to 3 times daily x 3 days. Patient feels like his abdomen is swollen and he is full of fluid . MD elicited complaint: shortness of breath and cough Pertinent past history: congestive heart failure, diabetes and DVT Onset (ago): day(s) Timing: constant Severity: moderate Exacerbating factors: exertion Relieving factors: nothing Associated symptoms: Reports chest congestion; Deny abdominal pain, chest pain, extremity pain, fever(s), hemoptysis, lightheadedness, nausea, palpitations, syncope or vomiting Treatment prior to arrival: none Related Data: Home oxygen amount: none Review of Systems 2 Const: Denies: fever(s), chills, body aches, fatigue or malaise Card: Denies: chest pain, palpitations, lightheadedness, syncope or pre- syncope Resp: Reports: dyspnea, productive cough, wheezing and chest congestion; Denies: hemoptysis GI: Reports: other (feels like abdomen is distended ); Denies: abdominal pain, nausea, vomiting or diarrhea : Denies: flank pain or dysuria Musc: Denies: neck pain, back pain, extremity pain or joint pain Skin/Breast: Denies: rash Neuro: Denies: headache(s), numbness in extremities, weakness in extremities or sensory changes PFSH ED 2 PFSH: Medical History Atrial fibrillation Anticoagulation adequate with anticoagulant therapy Dyslipidemia NAKUL (obstructive sleep apnea) CHF (congestive heart failure) Diabetes DVT (deep venous thrombosis) Cardiomyopathy Surgical History S/P ICD (internal cardiac defibrillator) procedure Family History Father Stroke CAD (coronary artery disease) Sister Stroke Brother Stroke Other Hypertension Social History Smoking and tobacco/nicotine status: never used tobacco/nicotine Alcohol intake: never Substance/Drug Use: never Physical Exam 2 Const: COMMON NORMALS: no acute distress, patient oriented x3, no limitations, alert and well nourished GENERAL APPEARANCE: cooperative NUTRITIONAL APPEARANCE: overweight ORIENTATION/CONSCIOUSNESS: Yes awake, Yes oriented to person, Yes oriented to place and Yes oriented to time HENMT: COMMON NORMALS: normocephalic and atraumatic HEAD & SCALP: n ormocephalic and atraumatic Neck/C-Spine: COMMON NORMALS: full ROM, no lymphadenopathy, supple and no meningeal signs Chest: COMMONS NORMALS: normal inspection of the chest Resp: COMMON NORMALS: normal respiratory effort AUSCULTATION: wheezes throughout Cardio: RATE: tachycardic RHYTHM: abnormal rhythm irregularly irregular GI: COMMON NORMALS: Soft to palpation, non-tender, No hepatosplenomegaly present and no masses INSPECTION: Yes normal to inspection and Yes abdominal distension AUSCULTATION: Yes normoactive bowel sounds PALPATION: Yes Soft to palpation, No Tenderness to palpation present (GI), No Guarding due to palpation present (GI), No Rigid due to palpation and Yes No hepatosplenomegaly present : COMMON NORMALS: Yes no CVA tenderness BLADDER/KIDNEY EXAM: Yes no CVA tenderness Back/Pelvis: COMMON NORMALS: no CVA tenderness and thoracic and lumbar spine normal to inspection Extremity: COMMON NORMALS: normal to inspection, capillary refill normal, no joint enlargement, no clubbing, cyanosis or edema, no calf tenderness and no pedal edema GENERAL: Yes normal exam except as noted Neuro: CLIFF COMA SCALE: document GCS findings Cliff coma scale eye opening: Spontaneous [place] coma scale verbal response: Orientated [place] coma scale motor response: Obey commands [place] coma scale total score: 15 COMMON NORMALS: patient oriented x3 SENSORIUM/ORIENTATION: Yes alert, Yes oriented to person, Yes oriented to place and Yes oriented to time MENINGEAL SIGNS: Y es no meningeal signs Skin: COMMON NORMALS: no rashes or lesions noted GENERAL SKIN EXAM: no rashes or lesions noted Course 2 Vital Signs: Vital signs: Vital Signs Temperature 97.8 F 04/28/23 10:40 Pulse Rate 112 H 04/28/23 15:25 Respiratory Rate 22 H 04/28/23 15:25 Blood Pressure 102/87 04/28/23 15:25 Pulse Oximetry 95 04/28/23 15:25 Oxygen Delivery Me thod Room Air 04/28/23 15:25 MDM - SOB/Dyspnea Medical Decision Making Patient is a 62-year-old male with an extensive past medical history including CHF with significantly reduced EF at 25% and a-fib with RVR here with complaints of shortness of breath and URI-like symptoms. sick with similar symptoms. She tested positive for enterovirus/rhinovirus a few weeks ago. Patient arrives today in [facility] with RVR. He feels like he is full of fluid and is getting significantly dyspneic with exertion. CXR showing no significant change. Blood work showing some mild elevations to his BUN/Cr. His BNP slightly improved from previous back in February. He was given repeat bolus doses of Cardizem without much improvement in his heart rate. Blood pressures continue to be soft. Patient most likely could benefit from fluid administration although this needs to be carefully monitored given his significantly reduced EF. Case ran by Dr. Main who recommends hospitalization. I spoke to Dr. Rust will admit patient. Medical Records I reviewed the patient's medical records. Lab Data I reviewed the patient's lab results. 04/28/23 14:55 04/28/23 14:55 Labs/Radiology: Radiology Impressions Chest X-Ray 04/28/23 10:33 IMPRESSION: 1. Persistent cardiomegaly and cardiac decompensation/mild CHF. 2. No significant change. Laboratory Results WBC 10.90 10^3/uL (3.29-11.43) 04/28/23 14:55 RBC 4.51 10^6/uL (3.85-5.65) 04/28/23 14:55 Hgb 12.00 g/dL (11.27-16.99) 04/28/23 14:55 Hct 40.2 % (37-53) 04/28/23 14:55 MCV 89.1 fl (82-101) 04/28/23 14:55 MCH 26.6 pg (27-33) L 04/28/23 14:55 MCHC 29.9 g/dL (30-55) L 04/28/23 14:55 RDW 17.5 % (12.1-15.1) H 04/28/23 14:55 Plt Count 420 10^3/cmm (157-399) H 04/28/23 14:55 MPV 9.4 fL (7.4-10.4) 04/28/23 14:55 Neut % (Auto) 64.1 % 04/28/23 14:55 Lymph % (Auto) 25.5 % 04/28/23 14:55 [place] % (Auto) 8.7 % 04/28/23 14:55 Eos % (Auto) 0.7 % 04/28/23 14:55 Baso % (Auto) 0.5 % 04/28/23 14:55 Neut # (Auto) 6.99 10^3/uL (1.8-7.7) 04/28/23 14:55 Lymph # (Auto) 2.8 10^3/uL (0.8-4.8) 04/28/23 14:55 [place] # (Auto) 1.0 10^3/uL (0.2-0.9) H 04/28/23 14:55 Eos # (Auto) 0.1 10^3/uL (0.0-0.8) 04/28/23 14:55 Baso # (Auto) 0.1 10^3/uL (0.0-0.1) 04/28/23 14:55 Nucleated RBC % (auto) 0 % 04/28/23 14:55 Nucleated RBCs # 0.0 /100WBC 04/28/23 14:55 Sodium 140 mmol/L (136-145) 04/28/23 14:55 Potassium 4.7 mmol/L (3.5-5.1) 04/28/23 14:55 Chloride 102 mmol/L (98-107) 04/28/23 14:55 Carbon Dioxide 24 mmol/L (22-29) 04/28/23 14:55 Anion Gap 18.7 (5-19) 04/28/23 14:55 BUN 34 mg/dL (8-23) H 04/28/23 14:55 Creatinine 1.9 mg/dL (0.7-1.2) H 04/28/23 14:55 GFR Calculation 36.0 mL/min (90-130) L 04/28/23 14:55 Glucose 134 mg/dL (65-115) H 04/28/23 14:55 Calculated Osmolality 300 mOsm/kg (285-295) H 04/28/23 14:55 Calcium 9.2 mg/dL (8.5-10.5) 04/28/23 14:55 Total Bilirubin 0.4 mg/dL (0.15-1.2) 04/28/23 14:55 AST 27 U/L (0-40) 04/28/23 14:55 ALT 37 U/L (0-41) 04/28/23 14:55 Alkaline Phosphatase 157 U/L (40-130) H 04/28/23 14:55 Troponin T Baseline 88 ng/L (0-15) H 04/28/23 14:55 NT-Pro-B Natriuret Pep 6959 pg/mL (0-125) H 04/28/23 14:55 Total Protein 7.1 g/dL (6.6-8.7) 04/28/23 14:55 Albumin 3.8 g/dL (3.5-5.2) 04/28/23 14:55 Globulin 3.3 g/dL (1.3-4.6) 04/28/23 14:55 All radiology interpretation(s) finalized by discharge Discharge Plan Discharge Patient Disposition: Admitted As Inpatient Clinical Impression: Atrial fibrillation with rapid ventricular response, CHF (congestive heart failure), URI with cough and congestion Condition: Stable Prescriptions: No Action Jardiance 25 mg tablet 25 mg PO DAILY insulin aspart U-100 [Novolog U-100 Insulin aspart] 100 unit/mL solution 60 unit SUBCUT TID Tresiba U-100 Insulin 100 unit/mL solution 100 unit SUBCUT DAILY Trulicity 1.5 mg/0.5 mL pen injector 1.5 mg SUBCUT .WEEKLY Rx Instructions: Friday atorvastatin 40 mg tablet 80 mg PO BEDTIME spironolactone 25 mg tablet 25 mg PO DAILY citalopram 20 mg tablet 20 mg PO DAILY allopurinol 100 mg tablet 100 mg PO DAILY Xarelto 20 mg tablet 20 mg PO DAILY terazosin 1 mg capsule 1 mg PO BEDTIME furosemide 40 mg tablet 60 mg PO BID Entresto 97-103 mg tablet 1 tab PO BID Qty: 120 2RF amiodarone 200 mg tablet 200 mg PO DAILY Qty: 90 1RF albuterol sulfate 90 mcg/actuation HFA aerosol inhaler 2 inh INHALATION Q4H PRN (Reason: shortness of breath or wheezing) Qty: 6.7 1RF ergocalciferol (vitamin D2) 1,250 mcg (50,000 unit) capsule 50,000 unit PO DIRECTED Rx Instructions: take one capsule once weekly on friday aspirin 81 mg tablet,chewable 81 mg PO DAILY carvedilol 3.125 mg Tablet 3.125 mg PO BID Qty: 60 0RF Referrals: Rochelle Rodriges MD [Primary Care Provider] - Coding Level of Care Code ED [place] [facility] for Zechariah Vicente
[2023-04-28] MEDS: FUROsemide 10 mg/mL SDV 10mL 60 MG IVP (15:02)
[2023-04-28] MEDS: methylPREDNISolone sod succ 125 mg/2 mL INJ IVP (15:02)
[2023-04-28 15:03] LABS: Basophils # 0.1 10^3/uL (0.0-0.1); Basophils % 0.5 %; Eosinophils # 0.1 10^3/uL (0.0-0.8); Eosinophils % 0.7 %; Hematocrit 40.2 % (37-53); Lymphocytes # 2.8 10^3/uL (0.8-4.8); Lymphocytes % 25.5 %; Mean Corpuscular HGB Conc 29.9 g/dL (30-55); Mean Corpuscular Hemoglobin 26.6 pg (27-33); Mean Corpuscular Volume 89.1 fl (82-101); Mean Platelet Volume 9.4 fL (7.4-10.4); Monocytes % 8.7 %; Neutrophils # 6.99 10^3/uL (1.8-7.7); Neutrophils % 64.1 %; Nucleated Red Blood Cells % 0 %; Platelet Count 420 10^3/cmm (157-399); Red Blood Count 4.51 10^6/uL (3.85-5.65); Red Cell Distribution Width 17.5 % (12.1-15.1)
[2023-04-28] MEDS: ipratropium-albuterol 3 mL Neb INHALATION (15:12)
[2023-04-28] MEDS: dilTIAZem 5 mg/mL SDV 5 mL IVP (15:22)
[2023-04-28 15:25] LABS: Troponin(5th) Baseline 88 ng/L (0-15)
[2023-04-28 15:32] LABS: Alanine Aminotransferase 37 U/L (0-41); Albumin Level 3.8 g/dL (3.5-5.2); Alkaline Phosphatase 157 U/L (40-130); Blood Urea Nitrogen 34 mg/dL (8-23); Calcium 9.2 mg/dL (8.5-10.5); Carbon Dioxide 24 mmol/L (22-29); Chloride 102 mmol/L (98-107); Creatinine Clr Calc Pharmacy 53.0039; Globulin 3.3 g/dL (1.3-4.6); Glucose 134 mg/dL (65-115); NT Pro B Type Natriuretic Pept 6959 pg/mL (0-125); Osmolality Calculated 300 mOsm/kg (285-295); Sodium 140 mmol/L (136-145); Total Bilirubin 0.4 mg/dL (0.15-1.2); Total Protein 7.1 g/dL (6.6-8.7)
[2023-04-28 15:41] LABS: Anion Gap 18.7 (5-19); Aspartate Amino Transferase 27 U/L (0-40); Potassium 4.7 mmol/L (3.5-5.1)
[2023-04-28 16:01] LABS: Adenovirus Not Detected (NOT DETECT); Chlamydia Pneumoniae Not Detected (NOT DETECT); Coronavirus 229E,HKU1,NL63,OC4 Not Detected (NOT DETECT); Human Metapneumovirus Not Detected (NOT DETECT); Human Rhinovirus/Enterovirus Not Detected (NOT DETECT); Influenza A Not Detected (NOT DETECT); Influenza A H1 Not Detected (NOT DETECT); Influenza A H1-2009 Not Detected (NOT DETECT); Influenza A H3 Not Detected (NOT DETECT); Influenza B Detected (NOT DETECT); Mycoplasma Pneumoniae Not Detected (NOT DETECT); Parainfluenza Virus Type 1 Not Detected (NOT DETECT); Parainfluenza Virus Type 2 Not Detected (NOT DETECT); Parainfluenza Virus Type 3 Not Detected (NOT DETECT); Parainfluenza Virus Type 4 Not Detected (NOT DETECT); Respiratory Syncytial Virus A Not Detected (NOT DETECT); Respiratory Syncytial Virus B Not Detected (NOT DETECT); SARS-COV-2 Not Detected (NOT DETECT)
[2023-04-28] MEDS: dilTIAZem 5 mg/mL SDV 5 mL 10 MG IVP (16:09)
--- NOTE | 2023-04-28 16:21 | ECG_ITS ---
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 Measurements Intervals [place] Rate: 112 P: 0 HI: 0 QRS: 44 QRSD: 129 T: 0 QT: 256 QTc: 350 Interpretive Statements ATRIAL FLUTTER WITH RAPID VENTRICULAR RESPONSE ANTEROLATERAL MYOCARDIAL INFARCTION , OF INDETERMINATE AGE [40+ ms Q WAVE IN I/aVL/V3-V6] Compared to ECG 04/28/2023 14:58:16 Aberrant conduction of supraventricular beat(s) no longer present Ventricular premature complex(es) no longer present Myocardial infarct finding still present Electronically Signed On 04-28-2023 23:20:15 SECURITIES SALES ASSOCIATE by Santiago Walden M.D. [id number]
--- NOTE | 2023-04-28 16:45 | US_ITS ---
WS: [id number] RIGHT UPPER QUADRANT ULTRASOUND HISTORY: liver COMPARISON: 12/04/2016 Liver: Liver is enlarged and heterogeneous. No mass. Very coarse echotexture. Portal Vein: Normal hepatopetal flow with monophasic waveform. Gallbladder: No stones. Previously described polyp is not identified. CBD: 0.5 cm Pancreas: Very echogenic pancreas. Poorly visualized. No duct dilatation or mass identified. Right kidney: 11.9 cm in length. Normal size and echogenicity. No hydronephrosis or mass. Aorta and IVC: Unremarkable abdominal aorta and IVC. No ascites. Small RIGHT pleural effusion. IMPRESSION: 1. Liver is enlarged and heterogeneous. Probably from hepatic steatosis or hepatocellular disease. 2. No cholelithiasis. 3. Echogenic pancreas. This is typically seen with chronic pancreatitis. No edema. 4. Very small RIGHT pleural effusion.
--- NOTE | 2023-04-28 16:46 | PM.HP ---
Providers/Chief Complaint Primary Care Provider: Rochelle Rodriges MD Chief Complaint: sob, cough History of Present Illness Eliseo Reyes is a 62 year old male with a past medical history of atrial fibrillation, history of NSTEMI, history of CHF, history of nonobstructive CAD history of ICD placement history of EF of 20% history of DVT, dyslipidemia, obesity, insulin-dependent type 2 diabetes mellitus, who presents [facility] as him and his has been sick for the last week with sinus congestion, fatigue, malaise, he is developed increased shortness of breath lower extremity edema increased abdominal distention with palpitations. Patient tells me that he has been sick for the last week his tested positive for multiple viruses not COVID or flu, he is also been Sick, no fevers, no chills, but he is started to develop chest palpitations, with increased abdominal distention, with bilateral extremity edema, he is on Lasix 60 twice daily, in the emergency room he was found to have A-fib with RVR and given multiple Cardizem pushes but due to soft blood pressures they could not be further given, remains in A-fib with RVR heart rates up to the 120s, will be started on an amiodarone drip, has been given 60 mg IV push Lasix has been given Decadron Review of Systems Const: Reports: fatigue and malaise; Denies: fever(s) or chills Eyes: Denies: change in vision Card: Reports: palpitations; Denies: chest pain Resp: Reports: dyspnea : Denies: flank pain Skin/Breast: Denies: rash Medications/Allergies Home Medications Medication Instructions Recorded Confirmed Last Taken Type allopurinol 100 mg tablet 100 mg PO DAILY 06/30/19 03/14/23 Unknown History atorvastatin 40 mg tablet 80 mg PO BEDTIME 06/30/19 03/14/23 Unknown History citalopram 20 mg tablet 20 mg PO DAILY 06/30/19 03/14/23 Unknown History dulaglutide 1.5 mg/0.5 mL 1.5 mg SUBCUT .WEEKLY 06/30/19 03/14/23 02/26/23 History subcutaneous pen injector (Trulicity) insulin aspart U-100 100 unit/mL 60 unit SUBCUT TID 06/30/19 03/14/23 Unknown History subcutaneous solution (Novolog U-100 Insulin aspart) insulin degludec 100 unit/mL 100 unit SUBCUT DAILY 06/30/19 03/14/23 Unknown History subcutaneous solution (Tresiba U-100 Insulin) rivaroxaban 20 mg tablet (Xarelto) 20 mg PO DAILY 06/30/19 03/14/23 Unknown History spironolactone 25 mg tablet 25 mg PO DAILY 06/30/19 03/14/23 Unknown History terazosin 1 mg capsule 1 mg PO BEDTIME 06/30/19 03/14/23 Unknown History empagliflozin 25 mg tablet 25 mg PO DAILY 09/07/19 03/14/23 Unknown History (Jardiance) furosemide 40 mg tablet 60 mg PO BID 09/07/19 03/14/23 Unknown History sacubitril 97 mg-valsartan 103 mg 1 tab PO BID #120 tabs 10/18/20 03/14/23 Unknown Rx tablet (Entresto) albuterol sulfate 90 mcg/actuation 2 inh inhalation Q4H PRN shortness 03/02/23 03/14/23 Unknown Rx aerosol inhaler of breath or wheezing #6.7 grams aspirin 81 mg chewable tablet 81 mg PO DAILY 03/02/23 03/14/23 Unknown History ergocalciferol (vitamin D2) 1,250 50,000 unit PO DIRECTED 03/02/23 03/14/23 02/26/23 History mcg (50,000 unit) capsule carvedilol 3.125 mg tablet 3.125 mg PO BID #60 tabs 03/05/23 03/14/23 Unknown Rx amiodarone 200 mg tablet 200 mg PO DAILY #90 tabs 03/14/23 03/14/23 Unknown Rx Allergies Allergy/AdvReac Type Severity Reaction Status Date / Time No Known Allergies Allergy Verified 04/28/23 10:40 PFSH Acute PFSH: Medical History Atrial fibrillation Anticoagulation adequate with anticoagulant therapy Dyslipidemia NAKUL (obstructive sleep apnea) CHF (congestive heart failure) Diabetes DVT (deep venous thrombosis) Cardiomyopathy Surgical History S/P ICD (internal cardiac defibrillator) procedure Family History Father Stroke CAD (coronary artery disease) Sister Stroke Brother Stroke Other Hypertension Social History Smoking and tobacco/nicotine status: never used tobacco/nicotine Alcohol intake: never Substance/Drug Use: never Vitals/I&O/Wt Last Vital Signs Temp 97.8 F 04/28/23 10:40 Pulse 112 H 04/28/23 15:25 Resp 22 H 04/28/23 15:25 BP 102/87 04/28/23 15:25 Pulse Ox 95 04/28/23 15:25 O2 Del Method Room Air 04/28/23 15:25 Weight last 48 hrs Weight 122.47 kg Physical Exam Const: COMMON NORMALS: no acute distress and patient oriented x3 HENMT: COMMON NORMALS: normocephalic HEAD & SCALP: normocephalic Eye: COMMON NORMALS: Equal, round and reactive pupils present and EOMs intact bilaterally Neck/C-Spine: COMMON NORMALS: no JVD OTHER: No significant cervical lymphadenopathy Chest: COMMONS NORMALS: normal inspection of the chest Resp: COMMON NORMALS: normal respiratory effort, No retractions and No use of accessory muscles AUSCULTATION: crackles and wheezes Cardio: COMMON NORMALS: regular rate, regular rhythm, S1 normal heart sound present and S2 normal heart sound present RATE: regular rate RHYTHM: regular rhythm HEART SOUNDS: S1 normal heart sound present and S2 normal heart sound present GI: OTHER: Abdomen soft, distended, fluid wave present, no guarding, no rebound, rigidity : COMMON NORMALS: Yes no CVA tenderness Extremity: NARRATIVE EXTREMITY EXAM: 2+ pitting edema Neuro: COMMON NORMALS: patient oriented x3, CN's II-XII intact bilaterally and moves all extremities Psych: COMMON NORMALS: mental status grossly normal Data 04/28/23 14:55 04/28/23 14:55 A&P Assessment and plan (1) Viral upper respiratory tract infection: (2) Atrial fibrillation with rapid ventricular response: (3) Acute exacerbation of CHF (congestive heart failure): Plan A-fib with RVR -Will hold Coreg as blood pressures are soft -Start amiodarone drip -Monitor blood pressures closely -Xarelto Acute systolic CHF exacerbation -Bumex 1 mg every 12 hours -Fluid restrictions 1000cc -Monitor urine output, monitor creatinine Viral URI, respiratory viral panel Type 2 diabetes mellitus, patient is on Jardiance, Lantus 60 units 3 times daily at home, instead we will use high-dose sliding scale Cardiac diet Full code Xarelto DVT prophylaxis Attestations Medical Necessity Statement*: Patient requires hospitalization, outpatient with observation, for CHF exacerbation, A-fib with RVR, viral URI Diagnoses Viral upper respiratory tract infection J06.9 Atrial fibrillation with rapid ventricular response I48.91 Acute exacerbation of CHF (congestive heart failure) I50.9
[2023-04-28] MEDS: amiodarone 150 MG/100 ML PREMIX 400 MG IV (16:54)
[2023-04-28 17:06] LABS: Lactic Sepsis W/Reflex 1.9 mmol/L (0.5-2.2)
[2023-04-28 17:23] LABS: Procalcitonin 0.08 ng/mL (0-0.5)
[2023-04-28 17:48] LABS: Troponin 5 2HR 86.11 ng/L (0-15)
[2023-04-28 17:51] LABS: Troponin 5 2HR Delta -1.89 ABS# (0-10)
[2023-04-28 18:51] LABS: Glucose Point of Care 129 mg/dL (70-110)
[2023-04-28] MEDS: pantoprazole 40 mg SDV IVP (19:01)
[2023-04-28] MEDS: bumetanide 0.25 mg/mL SDV 4 mL 1 MG IVP (21:01)
[2023-04-28] MEDS: insulin lispro 100 unit/1 mL SUBCUT (22:13)
[2023-04-29] VITALS (8 sets, daily range): BP systolic 104–126; BP diastolic 76–93; PULSE 98–114; RESP 18–28; TEMP 36.4–36.7; O2SAT 91–97; BMI 38.7
[2023-04-29 00:53] LABS: Glucose Point of Care 278 mg/dL (70-110)
[2023-04-29 05:15] LABS: Basophils % 0.1 %; Hematocrit 39.6 % (37-53); Lymphocytes % 8.8 %; Mean Corpuscular HGB Conc 29.8 g/dL (30-55); Mean Corpuscular Hemoglobin 26.6 pg (27-33); Mean Corpuscular Volume 89.4 fl (82-101); Mean Platelet Volume 10.2 fL (7.4-10.4); Monocytes # 0.1 10^3/uL (0.2-0.9); Monocytes % 1.2 %; Neutrophils # 9.99 10^3/uL (1.8-7.7); Neutrophils % 89.3 %; Nucleated Red Blood Cells % 0 %; Platelet Count 391 10^3/cmm (157-399); Red Blood Count 4.43 10^6/uL (3.85-5.65); Red Cell Distribution Width 17.5 % (12.1-15.1); White Blood Count 11.19 10^3/uL (3.29-11.43)
[2023-04-29 05:43] LABS: NT Pro B Type Natriuretic Pept 8693 pg/mL (0-125)
[2023-04-29 05:57] LABS: Alanine Aminotransferase 50 U/L (0-41); Albumin Level 3.5 g/dL (3.5-5.2); Alkaline Phosphatase 166 U/L (40-130); Aspartate Amino Transferase 47 U/L (0-40); Blood Urea Nitrogen 40 mg/dL (8-23); Calcium 9.1 mg/dL (8.5-10.5); Carbon Dioxide 20 mmol/L (22-29); Chloride 100 mmol/L (98-107); Creatinine Clr Calc Pharmacy 48.9203; Globulin 3.3 g/dL (1.3-4.6); Glomerular Filtration Rate 32.1 mL/min (90-130); Glucose 309 mg/dL (65-115); Magnesium 2.2 mg/dL (1.7-2.3); Osmolality Calculated 305 mOsm/kg (285-295); Phosphorus 3.7 mg/dL (2.5-4.5); Sodium 137 mmol/L (136-145); Total Bilirubin 0.4 mg/dL (0.15-1.2); Total Protein 6.8 g/dL (6.6-8.7)
[2023-04-29 06:03] LABS: Anion Gap 22.2 (5-19); Potassium 5.2 mmol/L (3.5-5.1)
[2023-04-29 06:22] LABS: Glucose Point of Care 319 mg/dL (70-110)
[2023-04-29] MEDS: insulin lispro 100 unit/1 mL SUBCUT ×2 (08:10→13:20)
[2023-04-29] MEDS: rivaroxaban 10 mg Tablet 20 MG PO (08:11)
[2023-04-29] MEDS: aspirin 81 mg Chew Tablet PO (08:11)
[2023-04-29] MEDS: allopurinol 100 mg Tablet PO (08:11)
[2023-04-29] MEDS: citalopram 20 mg Tablet PO (08:12)
[2023-04-29] MEDS: bumetanide 0.25 mg/mL SDV 4 mL 1 MG IVP (08:12)
[2023-04-29] MEDS: insulin glargine 100 units/1 mL 10 UNIT SUBCUT (09:26)
--- NOTE | 2023-04-29 09:41 | PC.CHAP ---
Pastoral Care Encounter/Spiritual Assessment Type of Contact [] Declined emergency medicine medical director visit [] Patient/Family/Request visit [] Outpatient visit [] Follow-up visit [] Physician referral [] Code/Alert [] Routine visit [] Staff referral [] Actively dying [] Patient sleeping [] Family support [] [] Out of room [] Palliative care [] [] Receiving care in room [] Pre-surgical visit [] Trauma [] Long length of stay [] ICU visit [x] Other:Contact precautions. No visit. Relational/Emotional Strength [] Patient feels connected with others/family/visitors/staff [] Distress [] Loneliness/isolation [] Abandonment Spirituality of Patient [] Person of Yashira [] Attends Anglican of their Yashira [] Believes in Prayer [] Reads Bible or Yazidism materials [] There are Spiritual issues to be addressed Machine [employer] Interventions [] Prayer [] Active listening [] Non-anxious presence [] Spiritual/emotional support [] Crisis/trauma care [] Spiritual counseling [] Bereavement support [] Provided bereavement packet [] Provided Bible/devotional materials [] Provided toy/stuffed animal, coloring book to patient or family member [] Provided Communion [] Anointing/[place] [] Salvation [] Completed spiritual assessment [] Other: Impact on Illness or Injury [] Angry [] Fearful [] Anxious [] Often cries [] Exhaustion [] Unable to work [] Unable to attend religion [] Unable to walk/stand [] Unable to read [] Unable to drive [] Unable to eat/drink [] Unable to sleep [] Unable to be with family [] Patient intubated [] Other: Summary Time spent with patient
[2023-04-29] MEDS: amiodarone 200 mg Tablet 400 MG PO ×2 (10:57→18:18)
[2023-04-29] MEDS: oseltamivir phosphate 30 mg Capsule PO ×2 (12:17→23:27)
[2023-04-29 12:24] LABS: Glucose Point of Care 403 mg/dL (70-110)
--- NOTE | 2023-04-29 13:05 | PC.NURSE ---
pt stated he had eaten a fruit salad, any fruits would increase his blood sugars. educated pt on consistent carb diet.
--- NOTE | 2023-04-29 15:28 | P.PN_ITS ---
Subjective 2 Subjective: Patient was seen this morning, he tells me that his shortness of breath persists but is improving, no fevers overnight, we discussed his flu B positivity, will start him on Tamiflu, denies any nausea, no vomiting, we discussed his elevated creatinine, plans on holding diuresis for today monitoring his urine output monitoring his creatinine monitoring his electrolytes, he is agreeable Vitals/I&O/Wt Last Vital Signs Temp 97.9 F 04/29/23 12:45 Pulse 105 H 04/29/23 12:45 Resp 22 H 04/29/23 12:45 BP 104/76 04/29/23 12:45 Pulse Ox 95 04/29/23 12:45 O2 Del Method Room Air 04/29/23 12:45 O2 Flow Rate 1 04/29/23 04:13 04/29/23 04/29/23 04/29/23 06:59 14:59 22:59 Intake Total 260 / 360 458 / 458 222 / 680 Output Total 1000 / 1350 450 / 450 Balance -740 / -990 8 / 8 222 / 230 Weight last 48 hrs Weight 126.144 kg Weight 127.204 kg Weight 122.47 kg Physical Exam 2 Const: COMMON NORMALS: no acute distress and patient oriented x3 Resp: COMMON NORMALS: normal respiratory effort, No retractions and No use of accessory muscles AUSCULTATION: wheezes Cardio: COMMON NORMALS: regular rate, regular rhythm, S1 normal heart sound present and S2 normal heart sound present RATE: regular rate RHYTHM: r egular rhythm HEART SOUNDS: S1 normal heart sound present and S2 normal heart sound present GI: COMMON NORMALS: Normal to inspection, nondistended, normoactive bowel sounds present and non-tender Extremity: COMMON NORMALS: no pedal edema Neuro: COMMON NORMALS: patient oriented x3 Psych: COMMON NORMALS: mental status grossly normal Data 04/29/23 04:01 04/29/23 04:01 A&P Assessment and plan (1) Viral upper respiratory tract infection: (2) Atrial fibrillation with rapid ventricular response: (3) Acute exacerbation of CHF (congestive heart failure): (4) Influenza B: Plan A-fib with RVR -Wean off amiodarone drip -Start amiodarone 400 twice daily ? Start Coreg 3.125 twice daily -Monitor blood pressures closely -Xarelto Acute kidney injury, creatinine 2.1, monitor urine output monitor creatinine Acute systolic CHF exacerbation ? History of non-ischemic cardiomyopathy - creatinine up to 2.1 hold Bumex -Fluid restrictions 1000cc -Monitor urine output, monitor creatinine Viral URI, influenza B, start Tamiflu renally dosed Type 2 diabetes mellitus, patient is on Jardiance, aspart 60 units 3 times daily at home, instead we will use high-dose sliding scale, Lantus 10 units twice daily Cardiac diet Full code Xarelto DVT prophylaxis Attestations 2 Medical Necessity Statement*: Patient requires hospitalization, inpatient, greater than 2 midnights acute kidney injury A-fib with RVR fluid overload influenza B Diagnoses Viral upper respiratory tract infection J06.9 Atrial fibrillation with rapid ventricular response I48.91 Acute exacerbation of CHF (congestive heart failure) I50.9 Influenza B J10.1
[2023-04-29 16:31] LABS: Glucose Point of Care 494 mg/dL (70-110)
--- NOTE | 2023-04-29 16:57 | PC.NURSE ---
home med recon reviewed and verified from patient pt stated he takes Tresiba 100 units in the morning daily, Humalog 60 units in AM, Noon, HS. Lantus 50 units in Am and 50u in HS and this was just started a week or 2 ago per pt, then Jardiance daily in AM, pt unsure of this dose, nurse look up on ext hx and it is dispense as 25 mg daily by his pcp. Dr. Rust is notified.
[2023-04-29] MEDS: insulin lispro 100 unit/1 mL 50 UNIT SUBCUT (18:17)
[2023-04-29] MEDS: pantoprazole 40 mg SDV IVP (18:18)
[2023-04-29] MEDS: carvedilol 3.125 mg Tablet PO (18:18)
--- NOTE | 2023-04-29 19:01 | PC.NURSE ---
Pt has had 2 loose BMs and he reported everytime he goes to the toilet he voids. unable to measure output.
--- NOTE | 2023-04-29 19:58 | PC.NURSE ---
Shift report- accuchecks monitoring pt blood sugars has been around 400s since this shift. Pt has been in chair and going to toilet throughout shift due to BMs. ospitalist has been informed about his occ SOB upon exertion and labs such as anion gap, potassium,creatinine. Hospitalist has been informed throughout shift in regards to his elevated blood sugars and his home meds for his DM and their dosing.
[2023-04-29 20:24] LABS: Glucose Point of Care 351 mg/dL (70-110)
[2023-04-29] MEDS: sacubitril/valsartan 24-26 mg Tablet 3 EACH PO (20:56)
[2023-04-29] MEDS: insulin glargine 100 units/1 mL 25 UNIT SUBCUT (20:56)
[2023-04-29 21:02] LABS: Glucose Point of Care 252 mg/dL (70-110)
[2023-04-29 22:04] LABS: Glucose Point of Care 253 mg/dL (70-110)
[2023-04-29 23:13] LABS: Glucose Point of Care 208 mg/dL (70-110)
[2023-04-30] VITALS (7 sets, daily range): BP systolic 96–115; BP diastolic 68–93; PULSE 105–108; RESP 17–23; TEMP 35.8–36.9; O2SAT 95–100
[2023-04-30 00:13] LABS: Glucose Point of Care 173 mg/dL (70-110)
[2023-04-30 02:23] LABS: Glucose Point of Care 130 mg/dL (70-110)
[2023-04-30 03:11] LABS: Glucose Point of Care 116 mg/dL (70-110)
[2023-04-30 04:22] LABS: Basophils % 0.2 %; Eosinophils % 0.1 %; Hematocrit 39.1 % (37-53); Lymphocytes # 2.7 10^3/uL (0.8-4.8); Lymphocytes % 19.5 %; Mean Corpuscular HGB Conc 30.2 g/dL (30-55); Mean Corpuscular Hemoglobin 26.8 pg (27-33); Mean Corpuscular Volume 88.9 fl (82-101); Monocytes # 1.1 10^3/uL (0.2-0.9); Monocytes % 8.1 %; Neutrophils # 9.89 10^3/uL (1.8-7.7); Neutrophils % 71.8 %; Nucleated Red Blood Cells % 0.1 %; Platelet Count 438 10^3/cmm (157-399); Red Cell Distribution Width 17.7 % (12.1-15.1); White Blood Count 13.77 10^3/uL (3.29-11.43)
[2023-04-30 04:54] LABS: Alanine Aminotransferase 54 U/L (0-41); Albumin Level 3.4 g/dL (3.5-5.2); Alkaline Phosphatase 152 U/L (40-130); Anion Gap 16.6 (5-19); Aspartate Amino Transferase 27 U/L (0-40); Blood Urea Nitrogen 59 mg/dL (8-23); Calcium 9.4 mg/dL (8.5-10.5); Carbon Dioxide 24 mmol/L (22-29); Chloride 105 mmol/L (98-107); Creatinine Clr Calc Pharmacy 48.7043; Globulin 3.8 g/dL (1.3-4.6); Glomerular Filtration Rate 32.1 mL/min (90-130); Glucose 95 mg/dL (65-115); Magnesium 2.5 mg/dL (1.7-2.3); Osmolality Calculated 308 mOsm/kg (285-295); Phosphorus 4.6 mg/dL (2.5-4.5); Potassium 4.6 mmol/L (3.5-5.1); Sodium 141 mmol/L (136-145); Total Bilirubin 0.4 mg/dL (0.15-1.2); Total Protein 7.2 g/dL (6.6-8.7)
[2023-04-30 05:13] LABS: Glucose Point of Care 109 mg/dL (70-110)
[2023-04-30 05:13] LABS: Glucose Point of Care 102 mg/dL (70-110)
[2023-04-30 06:03] LABS: Glucose Point of Care 95 mg/dL (70-110)
[2023-04-30 08:10] LABS: Glucose Point of Care 94 mg/dL (70-110)
[2023-04-30] MEDS: spironolactone 25 mg Tablet PO (08:21)
[2023-04-30] MEDS: citalopram 20 mg Tablet PO (08:21)
[2023-04-30] MEDS: sacubitril/valsartan 24-26 mg Tablet 3 EACH PO (08:21)
[2023-04-30] MEDS: insulin glargine 100 units/1 mL 25 UNIT SUBCUT (08:21)
[2023-04-30] MEDS: aspirin 81 mg Chew Tablet PO (08:22)
[2023-04-30] MEDS: allopurinol 100 mg Tablet PO (08:22)
[2023-04-30] MEDS: rivaroxaban 10 mg Tablet 20 MG PO (08:22)
[2023-04-30] MEDS: carvedilol 3.125 mg Tablet PO (08:22)
[2023-04-30] MEDS: amiodarone 200 mg Tablet 400 MG PO (08:22)
--- NOTE | 2023-04-30 08:58 | PC.NURSE ---
Provider ordered to stop the hourly accuchecks and start TID and HS. order entered.
[2023-04-30] MEDS: insulin lispro 100 unit/1 mL 50 UNIT SUBCUT (09:12)
--- NOTE | 2023-04-30 10:49 | PM.DCS ---
Discharge Providers Date of Admission: 04/28/23 17:02 Date of Discharge: April 30, 2023 Attending Provider at Admission: Marco Rust MD Attending Provider at Discharge: Marco Rust MD Primary Care Provider: Rochelle Rodriges MD Diagnoses at Discharge Discharge Diagnosis (1) Viral upper respiratory tract infection: Status: Acute (2) Atrial fibrillation with rapid ventricular response: Status: Acute (3) Acute exacerbation of CHF (congestive heart failure): Status: Acute (4) Influenza B: Status: Acute Reason for Visit Reason for Visit: sob, cough Hospital Course Hospital Course Eliseo Reyes is a 62 year old male with a past medical history of atrial fibrillation, history of NSTEMI, history of CHF, history of nonobstructive CAD history of ICD placement history of EF of 20% history of DVT, dyslipidemia, obesity, insulin-dependent type 2 diabetes mellitus, who presents [facility] as him and his has been sick for the last week with sinus congestion, fatigue, malaise, he is developed increased shortness of breath lower extremity edema increased abdominal distention with palpitations. Patient tells me that he has been sick for the last week his tested positive for multiple viruses not COVID or flu, he is also been Sick, no fevers, no chills, but he is started to develop chest palpitations, with increased abdominal distention, with bilateral extremity edema, he is on Lasix 60 twice daily, in the emergency room he was found to have A-fib with RVR and given multiple Cardizem pushes but due to soft blood pressures they could not be further given, remains in A-fib with RVR heart rates up to the 120s, will be started on an amiodarone drip, has been given 60 mg IV push Lasix has been given Decadron Patient was admitted to [facility] for A-fib with RVR, managed with amiodarone drip, transition to p.o. amiodarone discharged on home amiodarone with Xarelto with Coreg for DAYANNA on CKD, creatinine 2.1 hold Lasix for today, resume tomorrow For his viral URI, flu be positive, discharged on 3 remaining days of Tamiflu renally dosed For his type 2 diabetes mellitus, confirmed with patient, confirmed with pharmacy discharge on his home aspart 50 units 3 times daily with meals, with Lantus 25 units twice daily, follow-up with primary care provider in 1 week Physical Exam Const: COMMON NORMALS: no acute distress and patient oriented x3 Resp: COMMON NORMALS: normal respiratory effort, No retractions, No use of accessory muscles and clear to auscultation bilaterally AUSCULTATION: clear to auscultation bilaterally Cardio: COMMON NORMALS: regular rate, regular rhythm, S1 normal heart sound present and S2 normal heart sound present RATE: regular rate RHYTHM: regular rhythm HEART SOUNDS: S1 normal heart sound present and S2 normal heart sound present GI: COMMON NORMALS: Normal to inspection, nondistended, normoactive bowel sounds present and non-tender Extremity: COMMON NORMALS: no pedal edema Neuro: COMMON NORMALS: patient oriented x3 Psych: COMMON NORMALS: mental status grossly normal Discharge Data Studies Completed and Pending Completed Studies During Hospitalization Category Date Time Status XR chest 1V portable [id number] Urgent Exams 04/28/23 10:33 Completed US abdomen limited [id number] Stat Ultrasound 04/28/23 16:45 Completed Pending at discharge Category Date Time Status Complete Blood Count w/Auto AM LABS Lab 05/01/23 04:00 Ordered Comprehensive Metabolic Panel AM LABS Lab 05/01/23 04:00 Ordered Magnesium AM LABS Lab 05/01/23 04:00 Ordered Phosphorus AM LABS Lab 05/01/23 04:00 Ordered Radiology Impressions Chest X-Ray 04/28/23 10:33 IMPRESSION: 1. Persistent cardiomegaly and cardiac decompensation/mild CHF. 2. No significant change. Laboratory Results WBC 13.77 10^3/uL (3.29-11.43) H 04/30/23 03:34 RBC 4.40 10^6/uL (3.85-5.65) 04/30/23 03:34 Hgb 11.80 g/dL (11.27-16.99) 04/30/23 03:34 Hct 39.1 % (37-53) 04/30/23 03:34 MCV 88.9 fl (82-101) 04/30/23 03:34 MCH 26.8 pg (27-33) L 04/30/23 03:34 MCHC 30.2 g/dL (30-55) 04/30/23 03:34 RDW 17.7 % (12.1-15.1) H 04/30/23 03:34 Plt Count 438 10^3/cmm (157-399) H 04/30/23 03:34 MPV 10.0 fL (7.4-10.4) 04/30/23 03:34 Neut % (Auto) 71.8 % 04/30/23 03:34 Lymph % (Auto) 19.5 % 04/30/23 03:34 [place] % (Auto) 8.1 % 04/30/23 03:34 Eos % (Auto) 0.1 % 04/30/23 03:34 Baso % (Auto) 0.2 % 04/30/23 03:34 Neut # (Auto) 9.89 10^3/uL (1.8-7.7) H 04/30/23 03:34 Lymph # (Auto) 2.7 10^3/uL (0.8-4.8) 04/30/23 03:34 [place] # (Auto) 1.1 10^3/uL (0.2-0.9) H 04/30/23 03:34 Eos # (Auto) 0.0 10^3/uL (0.0-0.8) 04/30/23 03:34 Baso # (Auto) 0.0 10^3/uL (0.0-0.1) 04/30/23 03:34 Nucleated RBC % (auto) 0.1 % 04/30/23 03:34 Nucleated RBCs # 0.0 /100WBC 04/30/23 03:34 Sodium 141 mmol/L (136-145) 04/30/23 03:34 Potassium 4.6 mmol/L (3.5-5.1) 04/30/23 03:34 Chloride 105 mmol/L (98-107) 04/30/23 03:34 Carbon Dioxide 24 mmol/L (22-29) 04/30/23 03:34 Anion Gap 16.6 (5-19) 04/30/23 03:34 BUN 59 mg/dL (8-23) H 04/30/23 03:34 Creatinine 2.1 mg/dL (0.7-1.2) H 04/30/23 03:34 GFR Calculation 32.1 mL/min (90-130) L 04/30/23 03:34 Glucose 95 mg/dL (65-115) 04/30/23 03:34 POC Glucose 94 mg/dL (70-110) 04/30/23 07:48 Calculated Osmolality 308 mOsm/kg (285-295) H 04/30/23 03:34 Lactic Acid 1.9 mmol/L (0.5-2.2) 04/28/23 14:55 Calcium 9.4 mg/dL (8.5-10.5) 04/30/23 03:34 Phosphorus 4.6 mg/dL (2.5-4.5) H 04/30/23 03:34 Magnesium 2.5 mg/dL (1.7-2.3) H 04/30/23 03:34 Total Bilirubin 0.4 mg/dL (0.15-1.2) 04/30/23 03:34 AST 27 U/L (0-40) 04/30/23 03:34 ALT 54 U/L (0-41) H 04/30/23 03:34 Alkaline Phosphatase 152 U/L (40-130) H 04/30/23 03:34 Troponin T Baseline 88 ng/L (0-15) H 04/28/23 14:55 Troponin T 120 Minute 86.11 ng/L (0-15) H 04/28/23 17:17 Delta Troponin T -1.89 ABS# (0-10) L 04/28/23 17:17 Troponin T Hi Sens 6Hr 71.70 ng/L (0-15) H 04/28/23 21:11 Troponin T Hi Sens 6Hr Delta -16.30 ng/L (0-12) L 04/28/23 21:11 C-Reactive Protein 25.0 mg/L (0.0-4.9) H 04/28/23 14:55 NT-Pro-B Natriuret Pep 8693 pg/mL (0-125) H 04/29/23 04:01 Total Protein 7.2 g/dL (6.6-8.7) 04/30/23 03:34 Albumin 3.4 g/dL (3.5-5.2) L 04/30/23 03:34 Globulin 3.8 g/dL (1.3-4.6) 04/30/23 03:34 Procalcitonin 0.08 ng/mL (0-0.5) 04/28/23 14:55 Adenovirus (PCR) Not detected (NOT DETECT) 04/28/23 14:13 C. pneumoniae DNA (PCR) Not detected (NOT DETECT) 04/28/23 14:13 Coronavirus 229E (PCR) Not detected (NOT DETECT) 04/28/23 14:13 Human Metapneumovir PCR Not detected (NOT DETECT) 04/28/23 14:13 Influenza A (H1) PCR Not detected (NOT DETECT) 04/28/23 14:13 Influ A (H1/09) PCR Not detected (NOT DETECT) 04/28/23 14:13 Influenza A (H3) PCR Not detected (NOT DETECT) 04/28/23 14:13 Influenza Type A (PCR) Not detected (NOT DETECT) 04/28/23 14:13 Influenza Type B (PCR) Detected (NOT DETECT) A 04/28/23 14:13 M. pneumoniae (PCR) Not detected (NOT DETECT) 04/28/23 14:13 Parainfluenza 1 (PCR) Not detected (NOT DETECT) 04/28/23 14:13 Parainfluenza 2 (PCR) Not detected (NOT DETECT) 04/28/23 14:13 Parainfluenza 3 (PCR) Not detected (NOT DETECT) 04/28/23 14:13 Parainfluenza 4 (PCR) Not detected (NOT DETECT) 04/28/23 14:13 RSV Type A (PCR) Not detected (NOT DETECT) 04/28/23 14:13 RSV Type B (PCR) Not detected (NOT DETECT) 04/28/23 14:13 Entero/Rhino (PCR) Not detected (NOT DETECT) 04/28/23 14:13 SARS-CoV-2 (PCR) Not detected (NOT DETECT) 04/28/23 14:13 Vitals Last Vital Signs Temp 98.4 F 04/30/23 07:50 Pulse 108 H 04/30/23 07:50 Resp 23 H 04/30/23 07:50 BP 96/68 04/30/23 07:50 Pulse Ox 96 04/30/23 07:50 O2 Del Method Room Air 04/30/23 07:50 O2 Flow Rate 1 04/29/23 04:13 Discharge Plan Discharge Patient Disposition: Home Condition: Stable Prescriptions: New oseltamivir [Tamiflu] 30 mg Capsule 30 mg PO Q12H 3 Days Qty: 6 0RF insulin glargine [Lantus U-100 Insulin] 100 unit/mL Solution 25 unit SUBCUT Q12H 30 Days Qty: 15 0RF Continued atorvastatin 40 mg tablet 80 mg PO BEDTIME spironolactone 25 mg tablet 25 mg PO DAILY citalopram 20 mg tablet 20 mg PO DAILY allopurinol 100 mg tablet 100 mg PO DAILY Xarelto 20 mg tablet 20 mg PO DAILY terazosin 1 mg capsule 1 mg PO BEDTIME Entresto 97-103 mg tablet 1 tab PO BID Qty: 120 2RF amiodarone 200 mg tablet 200 mg PO DAILY Qty: 90 1RF albuterol sulfate 90 mcg/actuation HFA aerosol inhaler 2 inh INHALATION Q4H PRN (Reason: shortness of breath or wheezing) Qty: 6.7 1RF ergocalciferol (vitamin D2) 1,250 mcg (50,000 unit) capsule 50,000 unit PO DIRECTED Rx Instructions: take one capsule once weekly on friday aspirin 81 mg tablet,chewable 81 mg PO DAILY carvedilol 3.125 mg Tablet 3.125 mg PO BID Qty: 60 0RF Flomax 0.4 mg capsule 0.4 mg PO 1XD Jardiance 25 mg Tablet 25 mg PO QAM Changed Humalog KwikPen Insulin 200 unit/mL (3 mL) Insulin Pen 50 unit SUBCUT TIDWMEAL Qty: 6 0RF Held furosemide 40 mg tablet 60 mg PO BID Hold Instructions: Resume on 05/01/23. Discontinued Tresiba U-100 Insulin 100 unit/mL solution 100 unit SUBCUT DAILY Discharge Orders: Discharge Order (Routine); Ordered 04/30/23 Ordered By: Marco Rust Referrals: Rochelle Rodriges MD [Primary Care Provider] - Discharge Diet: Cardiac Discharge Activity: Resume usual activity Patient Instructions: Opioid Safety Activity Restrictions/Additional Instructions: - Please continue to self isolate, social distance, facemask, hand wash -please resume Lasix tomorrow ? Please monitor blood sugars closely Discharge Attestations Time Spent in Discharge Care*: greater than 30 min Quality Metrics Clinical Quality Measures [ No reported AMI, CVA or VTE this stay] Coding Level of Care Code 33875 Total time (in minutes) for Discharge: 45 Diagnoses Viral upper respiratory tract infection J06.9 Atrial fibrillation with rapid ventricular response I48.91 Acute exacerbation of CHF (congestive heart failure) I50.9 Influenza B J10.1
--- NOTE | 2023-04-30 11:09 | PC.SOCIAL ---
Pg 2 IMM Explained to pt Pg 2 IMM. No questions voiced. Provided pt a copy. Initialed, dated, & timed a copy & placed in chart.
[2023-04-30] MEDS: oseltamivir phosphate 30 mg Capsule PO (11:14)
== END 2023-04-30 14:03 | disposition home or self-care (01) | DRG 193 ==
LOC: ER 16:42 → CSU 17:07
PROVIDERS: Admitting Provider Family Medicine; Emergency Provider Physician Assistant; PCP Internal Medicine; Visit Provider Family Medicine
DX: J10.1 Influenza due to other identified influenza virus with other respiratory manifestations (principal); I50.23 Acute on chronic systolic (congestive) heart failure; N17.9 Acute kidney failure, unspecified; I42.8 Other cardiomyopathies; I48.91 Unspecified atrial fibrillation; I25.10 Atherosclerotic heart disease of native coronary artery without angina pectoris; E78.5 Hyperlipidemia, unspecified; E66.9 Obesity, unspecified; E11.9 Type 2 diabetes mellitus without complications; G47.33 Obstructive sleep apnea (adult) (pediatric); I25.2 Old myocardial infarction; Z68.38 Body mass index [BMI] 38.0-38.9, adult; Z79.4 Long term (current) use of insulin; Z79.84 Long term (current) use of oral hypoglycemic drugs; Z79.82 Long term (current) use of aspirin; Z79.01 Long term (current) use of anticoagulants; Z95.810 Presence of automatic (implantable) cardiac defibrillator; Z86.718 Personal history of other venous thrombosis and embolism; Z11.52 Encounter for screening for COVID-19
CPT/HCPCS: 36415; 36416; 71045; 76705; 80053; 82962; 83605; 83735; 83880; 84100; 84145; 84484; 85025; 86140; 87486; 87581; 87633; 93005; 94640; 94664; 96365; 96372; 96375; 96376; 99285; A4222; C9113; J0283; J1815; J1940; J2930; J3490

== ENCOUNTER 2023-05-07 13:46 | Emergency (ER) | payer MEDICARE, MEDICAID, SELFPAY ==
[2023-05-07] VITALS (7 sets, daily range): BP systolic 94–121; BP diastolic 67–83; PULSE 96–115; RESP 22–24; TEMP 36.8; O2SAT 93–99
--- NOTE | 2023-05-07 14:12 | XRR_ITS ---
PROCEDURE INFORMATION: Exam: XR Chest Exam date and time: 05/07/2023 2:46 PM Age: 62 years old Clinical indication: Cough and dyspnea; Prior surgery; Surgery date: 6+ months; Surgery type: Pacemaker; Additional info: Dyspnea/cough TECHNIQUE: Imaging protocol: Radiologic exam of the chest. Views: 1 view. COMPARISON: CR XR chest 1V portable [id number] 04/28/2023 10:50 AM FINDINGS: Tubes, catheters and devices: Unchanged right pacemaker/AICD projecting in usual position. Lungs: Unchanged small amounts of scarring and/or atelectasis in the lung bases. Unchanged pulmonary vascular congestion. Unchanged slight interstitial prominence. Otherwise, unremarkable. Pleural spaces: Unchanged moderate right pleural effusion. No left pleural effusion or pneumothorax. Heart/Mediastinum: Unchanged mild cardiomegaly. No other obvious mediastinal abnormality. Bones/joints: Unremarkable. XR/XR chest 1V portable [id number] IMPRESSION: No change since April 28, 2023. See above.
--- NOTE | 2023-05-07 14:12 | ECG_ITS ---
[facility] Test Date: 2023-05-07 Pat Name: Eliseo Reyes Department: Room: Gender: Male Design Eng: : 1960 Requested By: Anthony Cummings Order Number: [id number] Alek MD: Santiago Walden M.D. Measurements Intervals [place] Rate: 98 P: 0 NC: 0 QRS: 120 QRSD: 134 T: -26 QT: 376 QTc: 480 Interpretive Statements ATRIAL FIBRILLATION INTRAVENTRICULAR CONDUCTION DELAY [130+ ms QRS DURATION] POSSIBLE RIGHT VENTRICULAR HYPERTROPHY [SOME/ALL OF: PROMINENT R IN V1, LATE TRANSITION, RAD, SOY, SSS] POSSIBLE ANTERIOR MYOCARDIAL INFARCTION , OF INDETERMINATE AGE [30 ms Q WAVE IN V3/V4, OR R < 0.2 mV IN V4] Compared to ECG 04/28/2023 16:53:02 Intraventricular conduction delay now present Atrial abnormality now present Atrial flutter no longer present Myocardial infarct finding still present Electronically Signed On 05-07-2023 16:13:28 CDT by Santiago Walden M.D. [id number] cloud
--- NOTE | 2023-05-07 14:23 | ED_ITS ---
HPI - SOB/Dyspnea 2 General: Chief Complaint: Shortness of Breath/Dyspnea Stated Complaint: sob Time Seen by Provider: 05/07/23 14:07 Source: patient Mode of arrival: ambulatory History of Present Illness: HPI Narrative: 62-year-old male presents emergency room complaining of increasing swelling of his legs for the last week he has gained nearly 20 pounds he was recently hospitalized for flu congestive heart failure. He was discharged home on Tamiflu for 3 days he has continued to take his diuretics but despite this has persistent fluid retention. He is on amiodarone and carvedilol as well as Xarelto for atrial fibrillation he has not noticed any rapid heart rates. MD elicited complaint: shortness of breath Pertinent past history: congestive heart failure Onset (ago): day(s) Context: recent illness Timing: constant Severity: severe Exacerbating factors: lying flat and exertion Relieving factors: rest and upright position Known history of: congestive heart failure Associated symptoms: Deny abdominal pain, chest congestion, chest pain, cough, diaphoresis, dizziness, extremity pain, fever(s), hemoptysis, lightheadedness, myalgias, nausea, orthopnea, palpitations, paresthesias, polydipsia, polyuria, rash, sense of impending doom, syncope or vomiting Treatment prior to arrival: none Review of Systems 2 Const: Denies: fever(s), chills or diaphoresis Card: Denies: chest pain, palpitations, lightheadedness, syncope or orthopnea Resp: Denies: dyspnea, hemoptysis or chest congestion GI: Denies: abdominal pain, nausea or vomiting : Denies: dysuria, urinary frequency or urinary urgency Musc: Denies: neck pain, back pain or extremity pain Skin/Breast: Denies: rash Neuro: Denies: dizziness Endo: Denies: polyuria or polydipsia PFSH ED 2 PFSH: Medical History Atrial fibrillation Anticoagulation adequate with anticoagulant therapy Dyslipidemia NAKUL (obstructive sleep apnea) CHF (congestive heart failure) Diabetes DVT (deep venous thrombosis) Cardiomyopathy Surgical History S/P ICD (internal cardiac defibrillator) procedure Family History Father Stroke CAD (coronary artery disease) Sister Stroke Brother Stroke Other Hypertension Social History Smoking and tobacco/nicotine status: never used tobacco/nicotine Alcohol intake: never Substance/Drug Use: never Physical Exam 2 Const: GENERAL APPEARANCE: cooperative and comfortable O RIENTATION/CONSCIOUSNESS: Yes awake, Yes oriented to person, Yes oriented to place and Yes oriented to time HENMT: COMMON NORMALS: normocephalic, atraumatic and hearing grossly normal bilaterally HEAD & SCALP: normocephalic and atraumatic Resp: COMMON NORMALS: normal respiratory effort, No retractions and No use of accessory muscles AUSCULTATION: crackles Cardio: COMMON NORMALS: regular rate, regular rhythm and No murmurs present (Cardio) RATE: regular rate RHYTHM: regular rhythm GI: COMMON NORMALS: Soft to palpation and No hepatosplenomegaly present I NSPECTION: Yes abdominal distension AUSCULTATION: Yes normoactive bowel sounds PALPATION: Yes Soft to palpation, No Tenderness to palpation present (GI), No Guarding due to palpation present (GI) and Yes No hepatosplenomegaly present Extremity: COMMON NORMALS: normal to inspection, capillary refill normal, no clubbing, cyanosis or edema, no calf tenderness and no pedal edema Neuro: SENSORIUM/ORIENTATION: Yes oriented to person, Yes oriented to place and Yes oriented to time Skin: COMMON NORMALS: no rashes or lesions noted GENERAL SKIN EXAM: no rashes or lesions noted Course 2 Vital Signs: Vital signs: Vital Signs Temperature 98.2 F 05/07/23 14:04 Pulse Rate 104 H 05/07/23 18:07 Respiratory Rate 22 H 05/07/23 18:07 Blood Pressure 121/79 05/07/23 18:07 Pulse Oximetry 99 05/07/23 18:07 Oxygen Delivery Me thod Room Air 05/07/23 17:18 MDM - SOB/Dyspnea Medical Decision Making Labs and imaging reviewed. No sign of heart failure. Cardiac enzymes do not show delta positive. EKG does not show any acute changes. He has been taking his Lasix but is only been taking 40 in the morning and 20 in the evening splitting the dose. Recommended he go to taking 60 mg once a day in the morning. He should follow-up with his primary care doctor within the next 5 to 7 days. Return if he has further problems. Medical Records I reviewed the patient's medical records. Lab Data I reviewed the patient's lab results. 05/07/23 14:22 05/07/23 14:22 Labs/Radiology: Radiology Impressions Chest X-Ray 05/07/23 14:12 IMPRESSION: No change since April 28, 2023. See above. Laboratory Results WBC 8.66 10^3/uL (3.29-11.43) 05/07/23 14:22 RBC 4.16 10^6/uL (3.85-5.65) 05/07/23 14:22 Hgb 11.40 g/dL (11.27-16.99) 05/07/23 14: Hct 37.8 % (37-53) 05/07/23 14: MCV 90.9 fl (82-101) 05/07/23 14: MCH 27.4 pg (27-33) 05/07/23 14: MCHC 30.2 g/dL (30-55) 05/07/23 14:22 RDW 18.2 % (12.1-15.1) H 05/07/23 14:22 Plt Count 297 10^3/cmm (157-399) 05/07/23 14:22 MPV 9.8 fL (7.4-10.4) 05/07/23 14: Neut % (Auto) 61.7 % 05/07/23 14: Lymph % (Auto) 25.8 % 05/07/23 14:22 [place] % (Auto) 10.2 % 05/07/23 14:22 Eos % (Auto) 1.3 % 05/07/23 14:22 Baso % (Auto) 0.7 % 05/07/23 14:22 Neut # (Auto) 5.35 10^3/uL (1.8-7.7) 05/07/23 14: Lymph # (Auto) 2.2 10^3/uL (0.8-4.8) 05/07/23 14:22 [place] # (Auto) 0.9 10^3/uL (0.2-0.9) 05/07/23 14:22 Eos # (Auto) 0.1 10^3/uL (0.0-0.8) 05/07/23 14:22 Baso # (Auto) 0.1 10^3/uL (0.0-0.1) 05/07/23 14:22 Nucleated RBC % (auto) 0 % 05/07/23 14:22 Nucleated RBCs # 0.0 /100WBC 05/07/23 14:22 Sodium 138 mmol/L (136-145) 05/07/23 14:22 Potassium 4.8 mmol/L (3.5-5.1) 05/07/23 14:22 Chloride 103 mmol/L (98-107) 05/07/23 14:22 Carbon Dioxide 25 mmol/L (22-29) 05/07/23 14:22 Anion Gap 14.8 (5-19) 05/07/23 14:22 BUN 41 mg/dL (8-23) H 05/07/23 14:22 Creatinine 2.2 mg/dL (0.7-1.2) H 05/07/23 14:22 GFR Calculation 30.4 mL/min (90-130) L 05/07/23 14:22 Glucose 172 mg/dL (65-115) H 05/07/23 14:22 Calculated Osmolality 300 mOsm/kg (285-295) H 05/07/23 14:22 Calcium 9.1 mg/dL (8.5-10.5) 05/07/23 14:22 Total Bilirubin 0.4 mg/dL (0.15-1.2) 05/07/23 14:22 AST 27 U/L (0-40) 05/07/23 14:22 ALT 48 U/L (0-41) H 05/07/23 14:22 Alkaline Phosphatase 178 U/L (40-130) H 05/07/23 14:22 Troponin T Baseline 94 ng/L (0-15) H 05/07/23 14:22 Troponin T 120 Minute 89.27 ng/L (0-15) H 05/07/23 16:50 Delta Troponin T -4.73 ABS# (0-10) L 05/07/23 16:50 NT-Pro-B Natriuret Pep 4149 pg/mL (0-125) H 05/07/23 14:22 Total Protein 6.1 g/dL (6.6-8.7) L 05/07/23 14:22 Albumin 3.7 g/dL (3.5-5.2) 05/07/23 14:22 Globulin 2.4 g/dL (1.3-4.6) 05/07/23 14:22 Procalcitonin 0.13 ng/mL (0-0.5) 05/07/23 14:22 Urine Color Light yellow (Yellow) 05/07/23 14:30 Urine Appearance Clear (CLEAR) 05/07/23 14:30 Urine pH 5 (5-7) 05/07/23 14:30 Ur Specific [place] 1.010 (1.005-1.030) 05/07/23 14:30 Urine Protein Neg (Negative) 05/07/23 14:30 Urine Glucose (UA) 4+ (Normal) H 05/07/23 14:30 Urine Ketones Negative (Negative) 05/07/23 14:30 Urine Blood Neg (Negative) 05/07/23 14:30 Urine Nitrate Negative (Negative) 05/07/23 14:30 Urine Bilirubin Neg (Negative) 05/07/23 14:30 Urine Urobilinogen Norm mg/dL (Negative) 05/07/23 14:30 Ur Leukocyte Esterase Negative (Negative) 05/07/23 14:30 All radiology interpretation(s) finalized by discharge Discharge Plan Discharge Patient Disposition: Home Clinical Impression: CHF (congestive heart failure), Atrial fibrillation, Diabetes Condition: Stable Prescriptions: No Action spironolactone 25 mg tablet 25 mg PO DAILY citalopram 20 mg tablet 20 mg PO DAILY allopurinol 100 mg tablet 100 mg PO DAILY Xarelto 20 mg tablet 20 mg PO DAILY terazosin 1 mg capsule 1 mg PO BEDTIME furosemide 40 mg tablet See Rx Instructions .ROUTE .COMPLEX Hold Instructions: Resume on 05/01/23. Rx Instructions: 80 mg orally qam and 40 mg qpm Entresto 97-103 mg tablet 1 tab PO BID Qty: 120 2RF amiodarone 200 mg tablet 200 mg PO DAILY Qty: 90 1RF atorvastatin 80 mg tablet 80 mg PO QPM Lantus U-100 Insulin 100 unit/mL solution 25 unit SUBCUT BID albuterol sulfate 90 mcg/actuation HFA aerosol inhaler 2 inh INHALATION Q4H PRN (Reason: shortness of breath or wheezing) Qty: 6.7 1RF ergocalciferol (vitamin D2) 1,250 mcg (50,000 unit) capsule 50,000 unit PO Q7D Rx Instructions: on friday aspirin 81 mg tablet,chewable 81 mg PO DAILY carvedilol 3.125 mg Tablet 3.125 mg PO BID Qty: 60 0RF tamsulosin [Flomax] 0.4 mg capsule 0.4 mg PO DAILY Jardiance 25 mg Tablet 25 mg PO QAM Humalog KwikPen Insulin 200 unit/mL (3 mL) Insulin Pen 50 unit SUBCUT TIDWMEAL Qty: 6 0RF Discharge Orders: Discharge ED (Routine); Ordered 05/07/23 Ordered By: Anthony Lau Referrals: Rochelle Rodriges MD [Primary Care Provider] - Discharge Diet: Usual diet Discharge Activity: Increase activity as tolerated Patient Instructions: Opioid Safety, Pain Management Activity Restrictions/Additional Instructions: Thank you for choosing [facility] for your healthcare needs today. Please realize this is an emergency room and that we are providing you with a medical screening exam and this may not be complete and all inclusive of all the testing and or work up that you may need to determine your ailment or severity of your illness. It is very important that you follow up as instructed or that you return to the Emergency Department should you have concerns or if your condition changes or worsens in any way. You were seen today for complaints of increased fluid. There is no evidence of decompensated heart failure at this point would recommend that you take all 60 mg of your Lasix at 1 time in the morning. Recheck with your primary care doctor within the next week. Coding Level of Care Code ED Regulatory Leader for Zechariah Vicente
[2023-05-07 14:33] LABS: Basophils # 0.1 10^3/uL (0.0-0.1); Basophils % 0.7 %; Eosinophils # 0.1 10^3/uL (0.0-0.8); Eosinophils % 1.3 %; Hematocrit 37.8 % (37-53); Lymphocytes # 2.2 10^3/uL (0.8-4.8); Lymphocytes % 25.8 %; Mean Corpuscular HGB Conc 30.2 g/dL (30-55); Mean Corpuscular Hemoglobin 27.4 pg (27-33); Mean Corpuscular Volume 90.9 fl (82-101); Mean Platelet Volume 9.8 fL (7.4-10.4); Monocytes # 0.9 10^3/uL (0.2-0.9); Monocytes % 10.2 %; Neutrophils # 5.35 10^3/uL (1.8-7.7); Neutrophils % 61.7 %; Nucleated Red Blood Cells % 0 %; Platelet Count 297 10^3/cmm (157-399); Red Blood Count 4.16 10^6/uL (3.85-5.65); Red Cell Distribution Width 18.2 % (12.1-15.1); White Blood Count 8.66 10^3/uL (3.29-11.43)
[2023-05-07 15:02] LABS: Troponin(5th) Baseline 94 ng/L (0-15)
[2023-05-07 15:03] LABS: Add Urine Microscopic? NO
[2023-05-07 15:04] LABS: Urine Appearance Clear (CLEAR); Urine Color Light yellow (Yellow)
[2023-05-07 15:05] LABS: Bilirubin Urine Neg (Negative); Blood Urine Neg (Negative); Charge for UA Resulting for Rev; Glucose Urine UA 4+ (Normal); Ketones Urine Negative (Negative); Leukocyte Esterase Urine Negative (Negative); Nitrate Urine Negative (Negative); Protein Urine Neg (Negative); Urobilinogen Urine Norm (Negative); pH Urine 5 (5-7)
[2023-05-07 15:12] LABS: Alanine Aminotransferase 48 U/L (0-41); Albumin Level 3.7 g/dL (3.5-5.2); Alkaline Phosphatase 178 U/L (40-130); Anion Gap 14.8 (5-19); Aspartate Amino Transferase 27 U/L (0-40); Blood Urea Nitrogen 41 mg/dL (8-23); Calcium 9.1 mg/dL (8.5-10.5); Carbon Dioxide 25 mmol/L (22-29); Chloride 103 mmol/L (98-107); Creatinine Clr Calc Pharmacy 47.9811; Globulin 2.4 g/dL (1.3-4.6); Glomerular Filtration Rate 30.4 mL/min (90-130); Glucose 172 mg/dL (65-115); NT Pro B Type Natriuretic Pept 4149 pg/mL (0-125); Osmolality Calculated 300 mOsm/kg (285-295); Potassium 4.8 mmol/L (3.5-5.1); Sodium 138 mmol/L (136-145); Total Bilirubin 0.4 mg/dL (0.15-1.2); Total Protein 6.1 g/dL (6.6-8.7)
--- NOTE | 2023-05-07 15:14 | ECG_ITS ---
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 Measurements Intervals [place] Rate: 99 P: 0 VT: 0 QRS: 122 QRSD: 131 T: 78 QT: 391 QTc: 504 Interpretive Statements ATRIAL FIBRILLATION INTRAVENTRICULAR CONDUCTION DELAY [130+ ms QRS DURATION] POSSIBLE RIGHT VENTRICULAR HYPERTROPHY [SOME/ALL OF: PROMINENT R IN V1, LATE TRANSITION, RAD, SOY, SSS] POSSIBLE ANTERIOR MYOCARDIAL INFARCTION , OF INDETERMINATE AGE [30 ms Q WAVE IN V3/V4, OR R < 0.2 mV IN V4] Compared to ECG 05/07/2023 13:53:30 No significant changes Electronically Signed On 05-07-2023 16:15:38 CDT by Santiago Walden M.D. [email or web address] [email or web address]/store/[id number]
[2023-05-07 15:49] LABS: Procalcitonin 0.13 ng/mL (0-0.5)
[2023-05-07 17:27] LABS: Troponin 5 2HR 89.27 ng/L (0-15)
[2023-05-07 17:28] LABS: Troponin 5 2HR Delta -4.73 ABS# (0-10)
== END 2023-05-07 18:08 | disposition home or self-care (01) ==
PROVIDERS: Emergency Provider Family Medicine; PCP Internal Medicine
DX: I50.9 Heart failure, unspecified (principal); I48.91 Unspecified atrial fibrillation; E11.9 Type 2 diabetes mellitus without complications; Z79.82 Long term (current) use of aspirin; Z79.4 Long term (current) use of insulin; E78.5 Hyperlipidemia, unspecified; I42.9 Cardiomyopathy, unspecified; Z95.810 Presence of automatic (implantable) cardiac defibrillator
CPT/HCPCS: 36415; 71045; 80053; 81003; 83880; 84145; 84484; 85025; 93005; 99285

== ENCOUNTER → 2023-05-14 15:03 | Outpatient (BNVA) | payer MEDICARE, SELFPAY | PROVIDERS: PCP Internal Medicine; Visit Provider Internal Medicine | DX: I42.9 Cardiomyopathy, unspecified (principal); Z95.810 Presence of automatic (implantable) cardiac defibrillator; G47.33 Obstructive sleep apnea (adult) (pediatric); E78.5 Hyperlipidemia, unspecified; I82.409 Acute embolism and thrombosis of unspecified deep veins of unspecified lower extremity; E11.9 Type 2 diabetes mellitus without complications; I50.9 Heart failure, unspecified; Z79.01 Long term (current) use of anticoagulants; Z79.4 Long term (current) use of insulin | CPT/HCPCS: 99214 ==

== ENCOUNTER 2023-05-31 18:57 | Inpatient (IN) | payer MEDICARE, SELFPAY ==
[2023-05-31] VITALS (8 sets, daily range): BP systolic 100–154; BP diastolic 70–101; PULSE 78–97; RESP 17–23; TEMP 36.7; O2SAT 94–96; BMI 39.9
--- NOTE | 2023-05-31 19:54 | XRR_ITS ---
PROCEDURE INFORMATION: Exam: XR Chest Exam date and time: 05/31/2023 8:10 PM Age: 62 years old Clinical indication: Shortness of breath; Patient HX: SOB; Abd pain; Fluid retention TECHNIQUE: Imaging protocol: Radiologic exam of the chest. Views: 1 view. COMPARISON: CR XR chest 1V portable [id number] 05/07/2023 2:46 PM FINDINGS: Lungs: No focal consolidation. Pleural spaces: No evidence of pneumothorax. Small right-sided pleural effusion. Heart/Mediastinum: Cardiomediastinal silhouette is within normal limits. Right subclavian approach single lead pacemaker ICD. Bones/joints: No evidence of acute osseous abnormality. XR/XR chest 1V portable [id number] IMPRESSION: 1. Small right-sided pleural effusion.
[2023-05-31 20:00] LABS: Basophils # 0.1 10^3/uL (0.0-0.1); Basophils % 0.5 %; Eosinophils # 0.1 10^3/uL (0.0-0.8); Eosinophils % 0.6 %; Hematocrit 39.8 % (37-53); Lymphocytes # 1.9 10^3/uL (0.8-4.8); Lymphocytes % 18.9 %; Mean Corpuscular HGB Conc 30.4 g/dL (30-55); Mean Corpuscular Hemoglobin 26.5 pg (27-33); Mean Corpuscular Volume 87.1 fl (82-101); Mean Platelet Volume 9.9 fL (7.4-10.4); Monocytes # 1.1 10^3/uL (0.2-0.9); Monocytes % 10.4 %; Neutrophils # 6.99 10^3/uL (1.8-7.7); Neutrophils % 69.2 %; Nucleated Red Blood Cells % 0 %; Platelet Count 309 10^3/cmm (157-399); Red Blood Count 4.57 10^6/uL (3.85-5.65); Red Cell Distribution Width 17.5 % (12.1-15.1)
--- NOTE | 2023-05-31 20:08 | ECG_ITS ---
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 Measurements Intervals [place] Rate: 100 P: 0 GA: 0 QRS: 125 QRSD: 136 T: 0 QT: 411 QTc: 531 Interpretive Statements ATRIAL FIBRILLATION WITH RAPID VENTRICULAR RESPONSE WITH ABERRANT CONDUCTION OR VENTRICULAR PREMATURE COMPLEXES INTRAVENTRICULAR CONDUCTION DELAY [130+ ms QRS DURATION] POSSIBLE RIGHT VENTRICULAR HYPERTROPHY [SOME/ALL OF: PROMINENT R IN V1, LATE TRANSITION, RAD, SOY, SSS] ANTEROLATERAL MYOCARDIAL INFARCTION , OF INDETERMINATE AGE [40+ ms Q WAVE IN I/aVL/V3-V6] Compared to ECG 05/07/2023 15:14:29 Aberrant conduction of supraventricular beat(s) now present Ventricular premature complex(es) now present Myocardial infarct finding still present Electronically Signed On 06-01-2023 11:09:27 CDT by Santiago Walden M.D. [id number] cloud
[2023-05-31 20:11] LABS: Lactic Sepsis W/Reflex 1.9 mmol/L (0.5-2.2)
[2023-05-31 20:13] LABS: Troponin(5th) Baseline 95 ng/L (0-15)
[2023-05-31] MEDS: FUROsemide 10 mg/mL SDV 10mL 80 MG IVP (20:24)
[2023-05-31 20:38] LABS: Alanine Aminotransferase 30 U/L (0-41); Albumin Level 3.7 g/dL (3.5-5.2); Alkaline Phosphatase 183 U/L (40-130); Anion Gap 17.8 (5-19); Aspartate Amino Transferase 26 U/L (0-40); Blood Urea Nitrogen 54 mg/dL (8-23); Calcium 9.5 mg/dL (8.5-10.5); Carbon Dioxide 26 mmol/L (22-29); Chloride 96 mmol/L (98-107); Creatinine Clr Calc Pharmacy 47.1872; Globulin 3.3 g/dL (1.3-4.6); Glomerular Filtration Rate 30.4 mL/min (90-130); Glucose 236 mg/dL (65-115); NT Pro B Type Natriuretic Pept 6428 pg/mL (0-125); Osmolality Calculated 304 mOsm/kg (285-295); Potassium 3.8 mmol/L (3.5-5.1); Sodium 136 mmol/L (136-145); Total Bilirubin 0.7 mg/dL (0.15-1.2)
[2023-05-31] MEDS: ipratropium-albuterol 3 mL Neb INHALATION (20:59)
--- NOTE | 2023-05-31 21:19 | ED_ITS ---
HPI - SOB/Dyspnea 2 General: Chief Complaint: Shortness of Breath/Dyspnea Stated Complaint: abdomen pain/ fluid build up Time Seen by Provider: 05/31/23 19:35 History of Present Illness: HPI Narrative: 62-year-old male patient with a history of heart failure. He presents with significant shortness of breath. He states that he cannot walk across his kitchen without getting extremely short of breath. He has had a 16 pound weight gain in a couple of days, which he believes is water weight obviously. He has not had a cough. No fever. No sputum production. No chest pain. Associated symptoms: Reports abdominal pain; Deny chest pain, dizziness, fever(s), nausea, palpitations or vomiting Review of Systems 2 Const: Denies: fever(s), chills or body aches Eyes: Denies: change in vision Card: Denies: chest pain or palpitations Resp: Reports: dyspnea; Denies: productive cough, non-productive cough or wheezing GI: Reports: abdominal pain and constipation; Denies: nausea, vomiting, diarrhea or hematochezia Skin/Breast: Denies: rash Neuro: Denies: headache(s), weakness in extremities, dizziness or confusion PFSH ED 2 PFSH: Medical History Atrial fibrillation Anticoagulation adequate with anticoagulant therapy Dyslipidemia NAKUL (obstructive sleep apnea) CHF (congestive heart failure) Diabetes DVT (deep venous thrombosis) Cardiomyopathy Surgical History S/P ICD (internal cardiac defibrillator) procedure Family History Father Stroke CAD (coronary artery disease) Sister Stroke Brother Stroke Other Hypertension Social History Smoking and tobacco/nicotine status: never used tobacco/nicotine Alcohol intake: never Substance/Drug Use: never Physical Exam 2 Const: COMMON NORMALS: no acute distress GENERAL APPEARANCE: cooperative; not ill appearing and not frail appearing HENMT: COMMON NORMALS: normocephalic, atraumatic and Normal external nose present HEAD & SCALP: normocephalic and atraumatic FACE & SINUS: normal facial exam and face symmetric NOSE: Normal external nose present Eye: COMMON NORMALS: Equal, round and reactive pupils present and EOMs intact bilaterally PUPIL: Yes Equal, round and reactive pupils present Neck/C-Spine: GENERAL: Yes trachea midline Chest: CHEST: Yes Symmetrical chest wall rise Resp: COMMON NORMALS: normal respiratory effort, No retractions, No use of accessory muscles and clear to auscultation bilaterally AUSCULTATION: clear to auscultation bilaterally Cardio: COMMON NORMALS: regular rate and regular rhythm RATE: regular rate RHYTHM: regular rhythm GI: COMMON NORMALS: Normal to inspection, nondistended, normoactive bowel sounds present Extremity: COMMON NORMALS: no pedal edema Neuro: CLIFF COMA SCALE: document GCS findings Cliff coma scale eye opening: Spontaneous Cliff coma scale verbal response: Orientated Cliff coma scale motor response: Obey commands Cliff coma scale total score: 15 S ENSORY EXAM: Yes extremities (intact) Psych: COMMON NORMALS: speech normal SPEECH: Yes normal speech Skin: COMMON NORMALS: no rashes or lesions noted GENERAL SKIN EXAM: no rashes or lesions noted Course 2 Vital Signs: Vital signs: Vital Signs Temperature 98.1 F 06/01/23 00:00 Pulse Rate 87 06/01/23 00:00 Respiratory Rate 21 H 06/01/23 00:00 Blood Pressure 116/73 06/01/23 00:00 Pulse Oximetry 94 06/01/23 00:00 Oxygen Delivery Me thod Room Air 06/01/23 00:00 MDM - SOB/Dyspnea Medical Decision Making 62-year-old male. Congestive heart failure. No chest pain. Blood pressure has been good here. The patient is tachypneic. He is diaphoretic. His creatinine is 2. Hemoglobin is 12. White blood cell count is 10. Lactic acid is 1.9. BNP is significantly elevated at 6400. Chest x-ray shows pulmonary edema. He has been given IV furosemide here, and is beginning to diurese. He also complains of constipation. Given the amount of pulmonary edema present on chest x-ray, creatinine being 2.2, he will require admission. Lab Data 05/31/23 19:34 05/31/23 19:34 Labs/Radiology: Radiology Impressions Chest X-Ray 05/31/23 19:54 IMPRESSION: 1. Small right-sided pleural effusion. Laboratory Results WBC 10.10 10^3/uL (3.29-11.43) 05/31/23 19:34 RBC 4.57 10^6/uL (3.85-5.65) 05/31/23 19:34 Hgb 12.10 g/dL (11.27-16.99) 05/31/23 19:34 Hct 39.8 % (37-53) 05/31/23 19:34 MCV 87.1 fl (82-101) 05/31/23 19:34 MCH 26.5 pg (27-33) L 05/31/23 19:34 MCHC 30.4 g/dL (30-55) 05/31/23 19:34 RDW 17.5 % (12.1-15.1) H 05/31/23 19:34 Plt Count 309 10^3/cmm (157-399) 05/31/23 19:34 MPV 9.9 fL (7.4-10.4) 05/31/23 19:34 Neut % (Auto) 69.2 % 05/31/23 19:34 Lymph % (Auto) 18.9 % 05/31/23 19:34 [place] % (Auto) 10.4 % 05/31/23 19:34 Eos % (Auto) 0.6 % 05/31/23 19:34 Baso % (Auto) 0.5 % 05/31/23 19:34 Neut # (Auto) 6.99 10^3/uL (1.8-7.7) 05/31/23 19:34 Lymph # (Auto) 1.9 10^3/uL (0.8-4.8) 05/31/23 19:34 [place] # (Auto) 1.1 10^3/uL (0.2-0.9) H 05/31/23 19:34 Eos # (Auto) 0.1 10^3/uL (0.0-0.8) 05/31/23 19:34 Baso # (Auto) 0.1 10^3/uL (0.0-0.1) 05/31/23 19:34 Nucleated RBC % (auto) 0 % 05/31/23 19:34 Nucleated RBCs # 0.0 /100WBC 05/31/23 19:34 Sodium 136 mmol/L (136-145) 05/31/23 19:34 Potassium 3.8 mmol/L (3.5-5.1) 05/31/23 19:34 Chloride 96 mmol/L (98-107) L 05/31/23 19:34 Carbon Dioxide 26 mmol/L (22-29) 05/31/23 19:34 Anion Gap 17.8 (5-19) 05/31/23 19:34 BUN 54 mg/dL (8-23) H 05/31/23 19:34 Creatinine 2.2 mg/dL (0.7-1.2) H 05/31/23 19:34 GFR Calculation 30.4 mL/min (90-130) L 05/31/23 19:34 Glucose 236 mg/dL (65-115) H 05/31/23 19:34 Calculated Osmolality 304 mOsm/kg (285-295) H 05/31/23 19:34 Lactic Acid 1.9 mmol/L (0.5-2.2) 05/31/23 19:34 Calcium 9.5 mg/dL (8.5-10.5) 05/31/23 19:34 Total Bilirubin 0.7 mg/dL (0.15-1.2) 05/31/23 19:34 AST 26 U/L (0-40) 05/31/23 19:34 ALT 30 U/L (0-41) 05/31/23 19:34 Alkaline Phosphatase 183 U/L (40-130) H 05/31/23 19:34 Troponin T Baseline 95 ng/L (0-15) H 05/31/23 19:34 Troponin T 120 Minute 95.62 ng/L (0-15) H 05/31/23 21:23 Delta Troponin T 0.62 ABS# (0-10) 05/31/23 21:23 C-Reactive Protein 62.3 mg/L (0.0-4.9) H 05/31/23 19:34 NT-Pro-B Natriuret Pep 6428 pg/mL (0-125) H 05/31/23 19:34 Total Protein 7.0 g/dL (6.6-8.7) 05/31/23 19:34 Albumin 3.7 g/dL (3.5-5.2) 05/31/23 19:34 Globulin 3.3 g/dL (1.3-4.6) 05/31/23 19:34 Procalcitonin 0.30 ng/mL (0-0.5) 05/31/23 19:34 TSH 3.77 uIU/mL (0.27-4.20) 05/31/23 19:34 Adenovirus (PCR) Not detected (NOT DETECT) 05/31/23 20:27 C. pneumoniae DNA (PCR) Not detected (NOT DETECT) 05/31/23 20:27 Coronavirus 229E (PCR) Not detected (NOT DETECT) 05/31/23 20:27 Human Metapneumovir PCR Not detected (NOT DETECT) 05/31/23 20:27 Influenza A (H1) PCR Not detected (NOT DETECT) 05/31/23 20:27 Influ A (H1/09) PCR Not detected (NOT DETECT) 05/31/23 20:27 Influenza A (H3) PCR Not detected (NOT DETECT) 05/31/23 20:27 Influenza Type A (PCR) Not detected (NOT DETECT) 05/31/23 20:27 Influenza Type B (PCR) Not detected (NOT DETECT) 05/31/23 20:27 M. pneumoniae (PCR) Not detected (NOT DETECT) 05/31/23 20:27 Parainfluenza 1 (PCR) Not detected (NOT DETECT) 05/31/23 20:27 Parainfluenza 2 (PCR) Not detected (NOT DETECT) 05/31/23 20:27 Parainfluenza 3 (PCR) Not detected (NOT DETECT) 05/31/23 20:27 Parainfluenza 4 (PCR) Not detected (NOT DETECT) 05/31/23 20:27 RSV Type A (PCR) Not detected (NOT DETECT) 05/31/23 20:27 RSV Type B (PCR) Not detected (NOT DETECT) 05/31/23 20:27 Entero/Rhino (PCR) Not detected (NOT DETECT) 05/31/23 20:27 SARS-CoV-2 (PCR) Not detected (NOT DETECT) 05/31/23 20:27 All radiology interpretation(s) finalized by discharge Discharge Plan Discharge Patient Disposition: Admitted As Inpatient Admit Provider: Marco Rust Clinical Impression: Pulmonary edema Condition: Stable Coding Level of Care Code ED Android Platform Developer for [facility] Jules
--- NOTE | 2023-05-31 22:09 | ECG_ITS ---
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 Measurements Intervals [place] Rate: 86 P: 0 CA: 0 QRS: 120 QRSD: 128 T: 84 QT: 405 QTc: 486 Interpretive Statements ATRIAL FIBRILLATION ANTEROLATERAL MYOCARDIAL INFARCTION , PROBABLY OLD [40+ ms Q WAVE IN I/aVL/V3-V6] Compared to ECG 05/31/2023 20:08:13 Aberrant conduction of supraventricular beat(s) no longer present Ventricular premature complex(es) no longer present Intraventricular conduction delay no longer present Atrial abnormality no longer present Myocardial infarct finding still present Electronically Signed On 06-01-2023 11:18:05 CDT by Santiago Walden M.D. [id number]
[2023-05-31 22:13] LABS: Troponin 5 2HR 95.62 ng/L (0-15); Troponin 5 2HR Delta 0.62 ABS# (0-10)
[2023-05-31 22:17] LABS: Adenovirus Not Detected (NOT DETECT); Chlamydia Pneumoniae Not Detected (NOT DETECT); Coronavirus 229E,HKU1,NL63,OC4 Not Detected (NOT DETECT); Human Metapneumovirus Not Detected (NOT DETECT); Human Rhinovirus/Enterovirus Not Detected (NOT DETECT); Influenza A Not Detected (NOT DETECT); Influenza A H1 Not Detected (NOT DETECT); Influenza A H1-2009 Not Detected (NOT DETECT); Influenza A H3 Not Detected (NOT DETECT); Influenza B Not Detected (NOT DETECT); Mycoplasma Pneumoniae Not Detected (NOT DETECT); Parainfluenza Virus Type 1 Not Detected (NOT DETECT); Parainfluenza Virus Type 2 Not Detected (NOT DETECT); Parainfluenza Virus Type 3 Not Detected (NOT DETECT); Parainfluenza Virus Type 4 Not Detected (NOT DETECT); Respiratory Syncytial Virus A Not Detected (NOT DETECT); Respiratory Syncytial Virus B Not Detected (NOT DETECT); SARS-COV-2 Not Detected (NOT DETECT)
[2023-05-31] MEDS: ondansetron 2 mg/ML SDV 2 mL 4 MG IVP (22:24)
--- NOTE | 2023-05-31 23:02 | P.HP_ITS ---
Providers/Chief Complaint 2 Admitting Physician: Marco Rust MD Primary Care Provider: Rochelle Rodriges MD Chief Complaint: abdomen pain/ fluid build up History of Present Illness Eliseo Reyes is a 62 year old male with a past medical history of insulin- dependent type 2 diabetes mellitus, cardiomyopathy, systolic CHF, sleep apnea, atrial fibrillation on Xarelto, who presents [facility] due to increased shortness of breath, weight gain, bilateral lower extremity edema. Patient tells me that over the last few days he is getting he believes over 20 pounds, he has increased lower extremity edema, increasingly short of breath, no fevers, no cough, no chills, no hemoptysis does report chest pain with his shortness of breath, does report anasarca, increased abdominal wall edema Review of Systems 2 Const: Denies: fever(s) or chills Card: Reports: chest pain Resp: Reports: dyspnea GI: Denies: abdominal pain Medications/Allergies Home Medications Medication Instructions Recorded Confirmed Last Taken Type allopurinol 100 mg tablet 100 mg PO DAILY 06/30/19 05/14/23 05/07/23 History citalopram 20 mg tablet 20 mg PO DAILY 06/30/19 05/14/23 05/07/23 History rivaroxaban 20 mg tablet (Xarelto) 20 mg PO DAILY 06/30/19 05/14/23 05/07/23 History spironolactone 25 mg tablet 25 mg PO DAILY 06/30/19 05/14/23 05/07/23 History terazosin 1 mg capsule 1 mg PO BEDTIME 06/30/19 05/14/23 05/06/23 History furosemide 40 mg tablet See Rx Instructions .Route .COMPLEX 09/07/19 05/14/23 05/07/23 History sacubitril 97 mg-valsartan 103 mg 1 tab PO BID #120 tabs 10/18/20 05/14/23 05/07/23 Rx tablet (Entresto) albuterol sulfate 90 mcg/actuation 2 inh inhalation Q4H PRN shortness 03/02/23 05/14/23 04/28/23 Rx aerosol inhaler of breath or wheezing #6.7 grams aspirin 81 mg chewable tablet 81 mg PO DAILY 03/02/23 05/14/23 05/07/23 History ergocalciferol (vitamin D2) 1,250 50,000 unit PO Q7D 03/02/23 05/14/23 05/07/23 History mcg (50,000 unit) capsule carvedilol 3.125 mg tablet 3.125 mg PO BID #60 tabs 03/05/23 05/14/23 05/07/23 Rx amiodarone 200 mg tablet 200 mg PO DAILY #90 tabs 03/14/23 05/14/23 05/07/23 Rx empagliflozin 25 mg tablet 25 mg PO QAM 04/29/23 05/14/23 05/07/23 History (Jardiance) insulin lispro 200 unit/mL (3 mL) 50 unit (0.25 mL) SUBCUT TIDWMEAL 04/30/23 05/14/23 05/07/23 Rx subcutaneous pen (Humalog KwikPen #6 mL U-200 Insulin) atorvastatin 80 mg tablet 80 mg PO QPM 05/07/23 05/14/23 05/06/23 History insulin glargine 100 unit/mL 25 unit SUBCUT BID 05/07/23 05/14/23 05/07/23 History subcutaneous solution (Lantus U-100 Insulin) Allergies Allergy/AdvReac Type Severity Reaction Status Date / Time No Known Allergies Allergy Verified 05/14/23 15:21 PFSH Acute 2 PFSH: Medical History Atrial fibrillation Anticoagulation adequate with anticoagulant therapy Dyslipidemia NAKUL (obstructive sleep apnea) CHF (congestive heart failure) Diabetes DVT (deep venous thrombosis) Cardiomyopathy Surgical History S/P ICD (internal cardiac defibrillator) procedure Family History Father Stroke CAD (coronary artery disease) Sister Stroke Brother Stroke Other Hypertension Social History Smoking and tobacco/nicotine status: never used tobacco/nicotine Alcohol intake: never Substance/Drug Use: never Vitals/I&O/Wt Last Vital Signs Temp 98.0 F 05/31/23 19:10 Pulse 79 05/31/23 22:25 Resp 20 H 05/31/23 22:25 BP 154/101 05/31/23 22:25 Pulse Ox 94 05/31/23 22:25 O2 Del Method Room Air 05/31/23 22:25 Weight last 48 hrs Weight 129.727 kg Physical Exam 2 Const: COMMON NORMALS: no acute distress and patient oriented x3 HENMT: COMMON NORMALS: normocephalic HEAD & SCALP: normocephalic Neck/C-Spine: COMMON NORMALS: no JVD Resp: COMMON NORMALS: normal respiratory effort, No retractions and No use of accessory muscles Cardio: COMMON NORMALS: no JVD, regular rate, regular rhythm, S1 normal heart sound present and S2 normal heart sound present RATE: regular rate RHYTHM: regular rhythm HEART SOUNDS: S1 normal heart sound present and S2 normal heart sound present GI: COMMON NORMALS: Normal to inspection, nondistended, normoactive bowel sounds present, Soft to palpation and non-tender Neuro: COMMON NORMALS: patient oriented x3 Psych: COMMON NORMALS: mental status grossly normal Data 05/31/23 19:34 05/31/23 19:34 A&P Assessment and plan (1) Acute CHF (congestive heart failure): (2) Atrial fibrillation: Qualifiers: Atrial fibrillation type: paroxysmal Qualified Code(s): I48.0 - Paroxysmal atrial fibrillation (3) Dyslipidemia: (4) Anticoagulation adequate with anticoagulant therapy: (5) DVT (deep venous thrombosis): (6) Diabetes: (7) NAKUL (obstructive sleep apnea): (8) Pulmonary edema: Plan Acute systolic CHF exacerbation Echocardiogram 03/15/2023 CONCLUSIONS Severe diffuse hypokinesia of the left ventricular with ejection fraction of 25%. Mildly increased left atrial size. Mild mitral valve regurgitation. Thickened aortic valve. Mildly dilated LV cavity. Pacemaker/defibrillator wire in the right atrium/right ventricle There is no pericardial effusion. Compared to the study from 07/08/2014, there seems to be a drop in the LV ejection fraction from 35 to 25% ? Plan ? Fluid restrictions at 1000 cc, ? Issue is his creatinine is 2.2 it could be cardiorenal, potentially improved with diuresis ? Lasix 40 mg IV every 8 hours?monitor potassium, requiring monitor electrolytes, monitor urine output ? Chest pain, serial EKGs, serial troponins, telemetry monitoring ? Atrial fibrillation, continue amiodarone, continue Xarelto ? Type 2 diabetes mellitus, high-dose sliding scale, Lantus 10 units twice daily ? Cardiomyopathy continue Entresto ? Continue aspirin, statin, Coreg ? Full code ? Xarelto for DVT prophylaxis including SCDs Attestations 2 Medical Necessity Statement*: Patient requires hospitalization, inpatient, greater than 2 midnights for acute CHF exacerbation, fluid overload, with DAYANNA requiring IV diuresis Diagnoses Acute CHF (congestive heart failure) I50.9 Paroxysmal atrial fibrillation I48.0 Atrial fibrillation type: paroxysmal Dyslipidemia E78.5 Anticoagulation adequate with anticoagulant therapy Z79.01 DVT (deep venous thrombosis) I82.409 Diabetes E11.9 NAKUL (obstructive sleep apnea) G47.33 Pulmonary edema J81.1
[2023-05-31 23:39] LABS: Thyroid Stimulating Hormone 3.77 uIU/mL (0.27-4.20)
[2023-05-31 23:50] LABS: C Reactive Protein 62.3 mg/L (0.0-4.9)
[2023-05-31] MEDS: pantoprazole 40 mg SDV IVP (23:54)
[2023-06-01] VITALS (7 sets, daily range): BP systolic 97–137; BP diastolic 64–82; PULSE 85–95; RESP 20–24; TEMP 36.4–37.1; O2SAT 94–97
[2023-06-01 01:25] LABS: Troponin 5 6HR 96.49 ng/L (0-15); Troponin 5 6HR Delta 1.49 ng/L (0-12)
[2023-06-01 01:26] LABS: Lactic Sepsis W/Reflex 1.3 mmol/L (0.5-2.2)
--- NOTE | 2023-06-01 02:25 | ECG_ITS ---
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 Measurements Intervals [place] Rate: 86 P: 0 TN: 0 QRS: 87 QRSD: 131 T: 0 QT: 394 QTc: 472 Interpretive Statements ATRIAL FIBRILLATION WITH ABERRANT CONDUCTION OR VENTRICULAR PREMATURE COMPLEXES INTRAVENTRICULAR CONDUCTION DELAY [130+ ms QRS DURATION] POSSIBLE ANTERIOR MYOCARDIAL INFARCTION , PROBABLY OLD [30 ms Q WAVE IN V3/V4, OR R < 0.2 mV IN V4] Compared to ECG 05/31/2023 22:09:58 Ventricular premature complex(es) now present Aberrant conduction of supraventricular beat(s) now present Intraventricular conduction delay now present Myocardial infarct finding still present Electronically Signed On 06-01-2023 11:16:47 CDT by Santiago Walden M.D. [email or web address]
[2023-06-01 03:52] LABS: Basophils # 0.1 10^3/uL (0.0-0.1); Basophils % 0.6 %; Eosinophils % 0.4 %; Lymphocytes # 2.7 10^3/uL (0.8-4.8); Lymphocytes % 25.6 %; Mean Corpuscular HGB Conc 29.8 g/dL (30-55); Mean Corpuscular Hemoglobin 26.2 pg (27-33); Mean Platelet Volume 9.7 fL (7.4-10.4); Monocytes # 1.2 10^3/uL (0.2-0.9); Neutrophils # 6.51 10^3/uL (1.8-7.7); Nucleated Red Blood Cells % 0 %; Platelet Count 331 10^3/cmm (157-399); Red Blood Count 4.66 10^6/uL (3.85-5.65); Red Cell Distribution Width 17.8 % (12.1-15.1); White Blood Count 10.48 10^3/uL (3.29-11.43)
[2023-06-01 04:09] LABS: Blood Urea Nitrogen 54 mg/dL (8-23); Calcium 9.4 mg/dL (8.5-10.5); Carbon Dioxide 27 mmol/L (22-29); Chloride 97 mmol/L (98-107); Creatinine Clr Calc Pharmacy 45.6755; Glomerular Filtration Rate 28.9 mL/min (90-130); Glucose 180 mg/dL (65-115); Magnesium 2.4 mg/dL (1.7-2.3); Osmolality Calculated 301 mOsm/kg (285-295); Sodium 136 mmol/L (136-145)
[2023-06-01 04:11] LABS: NT Pro B Type Natriuretic Pept 7258 pg/mL (0-125)
[2023-06-01] MEDS: FUROsemide 10 mg/mL SDV 4mL 40 MG IVP ×3 (06:08→21:28)
[2023-06-01 06:26] LABS: Glucose Point of Care 191 mg/dL (70-110)
[2023-06-01] MEDS: ondansetron 2 mg/ML SDV 2 mL 4 MG IVP (06:32)
[2023-06-01] MEDS: carvedilol 3.125 mg Tablet PO ×2 (09:02→17:16)
[2023-06-01] MEDS: allopurinol 100 mg Tablet PO (09:02)
[2023-06-01] MEDS: rivaroxaban 10 mg Tablet 20 MG PO (09:02)
[2023-06-01] MEDS: citalopram 20 mg Tablet PO (09:02)
[2023-06-01] MEDS: aspirin 81 mg Chew Tablet PO (09:02)
[2023-06-01] MEDS: amiodarone 200 mg Tablet PO (09:46)
[2023-06-01] MEDS: insulin lispro 100 unit/1 mL SUBCUT ×4 (09:46→21:34)
[2023-06-01] MEDS: spironolactone 25 mg Tablet PO (09:46)
[2023-06-01] MEDS: sacubitril/valsartan 24-26 mg Tablet 3 EACH PO ×2 (09:46→17:16)
[2023-06-01] MEDS: insulin glargine 100 units/1 mL 10 UNIT SUBCUT ×2 (09:46→17:15)
--- NOTE | 2023-06-01 10:26 | PC.NURSE ---
Patient requesting something for constipation. Nurse sent message sent to Dr. Andrew at [phone] requesting something for it.
[2023-06-01 11:35] LABS: Glucose Point of Care 247 mg/dL (70-110)
[2023-06-01] MEDS: polyethylene glycol 3350 Pkt 17 gm PO (12:00)
[2023-06-01] MEDS: pantoprazole 40 mg SDV IVP ×2 (12:01→23:00)
--- NOTE | 2023-06-01 15:15 | P.PN_ITS ---
Subjective 2 Subjective: No new complaints today. Currently on 1 L/min supplemental O2. Feels like his breathing is easier. Medications: Reviewed: Yes Vitals/I&O/Wt Last Vital Signs Temp 98.0 F 06/01/23 11:09 Pulse 95 06/01/23 11:09 Resp 20 H 06/01/23 07:09 BP 113/82 06/01/23 11:09 Pulse Ox 94 06/01/23 11:09 O2 Del Method Nasal Cannula 06/01/23 11:09 06/01/23 06/01/23 06/01/23 06:59 14:59 22:59 Intake Total 240 / 240 480 / 480 Output Total 0 / 0 1900 / 1900 Balance 240 / 240 -1420 / -1420 Weight last 48 hrs Weight 131.995 kg Weight 132.63 kg Weight 132.903 kg Weight 129.727 kg Physical Exam 2 Narrative: General: No acute distress, AO x3 HEENT: PERRLA, pupils bilaterally equal and reactive, pallors not present Chest: Normal vesicular breath sounds, no added sounds, equal good air entry bilaterally CVS: S1-S2 regular, no murmurs, no tachycardia, no gallops, no rubs Abdomen: Soft, nontender, no organomegaly, bowel sounds present Neuro: No focal deficits, no facial deformity, AO x3, power 5/5 in all limbs Extremities: Lower extremity pitting edema bilaterally. Urinary Catheter Management: Mathew: Cath Placed During This Visit: yes Urinary Catheter Date of Insertion: 06/01/23 Urinary Catheter Time of Insertion: 07:25 Data 06/01/23 03:20 06/01/23 03:20 A&P Assessment and plan (1) Acute CHF (congestive heart failure): (2) Atrial fibrillation: Qualifiers: Atrial fibrillation type: paroxysmal Qualified Code(s): I48.0 - Paroxysmal atrial fibrillation (3) Dyslipidemia: (4) Anticoagulation adequate with anticoagulant therapy: (5) DVT (deep venous thrombosis): (6) Diabetes: (7) NAKUL (obstructive sleep apnea): (8) Pulmonary edema: Plan Acute systolic CHF exacerbation Echocardiogram 03/15/2023 CONCLUSIONS Severe diffuse hypokinesia of the left ventricular with ejection fraction of 25%. Mildly increased left atrial size. Mild mitral valve regurgitation. Thickened aortic valve. Mildly dilated LV cavity. Pacemaker/defibrillator wire in the right atrium/right ventricle There is no pericardial effusion. Compared to the study from 07/08/2014, there seems to be a drop in the LV ejection fraction from 35 to 25% ? Plan ? Fluid restrictions at 1000 cc, ? Issue is his creatinine is 2.2 it could be cardiorenal, potentially improved with diuresis ? Lasix 40 mg IV every 8 hours?monitor potassium, requiring monitor electrolytes, monitor urine output ? Chest pain, serial EKGs, serial troponins, telemetry monitoring ? Atrial fibrillation, continue amiodarone, continue Xarelto ? Type 2 diabetes mellitus, high-dose sliding scale, Lantus 10 units twice daily ? Cardiomyopathy continue Entresto ? Continue aspirin, statin, Coreg ? Full code ? Xarelto for DVT prophylaxis including SCDs plan for today June 01, 2023 plan for today Overnight labs and H&P reviewed. No new complaints. Currently on 1 L/min supplemental O2. Continue diuresis with Lasix 40 mg IV every 8 hours as already started. Monitor CHERISE, renal function, assess for clinical improvement. Attestations 2 Medical Necessity Statement*: Continued need for IV diuresis for acute on chronic CHF exacerbation. Coding Level of Care Code Acute Code for Chg Fwd Moderate MDM includes number and complexity of problems actively addressed during encounter, amount and/or complexity of data reviewed/ordered and described risk of complication, morbidity or mortality of management as documented Diagnoses Acute CHF (congestive heart failure) I50.9 Paroxysmal atrial fibrillation I48.0 Atrial fibrillation type: paroxysmal Dyslipidemia E78.5 Anticoagulation adequate with anticoagulant therapy Z79.01 DVT (deep venous thrombosis) I82.409 Diabetes E11.9 NAKUL (obstructive sleep apnea) G47.33 Pulmonary edema J81.1
[2023-06-01 16:27] LABS: Glucose Point of Care 260 mg/dL (70-110)
[2023-06-01] MEDS: atorvastatin 40 mg Tablet 80 MG PO (17:16)
[2023-06-01 21:03] LABS: Glucose Point of Care 306 mg/dL (70-110)
[2023-06-01] MEDS: lactulose oral liq 20 gm/30 mL UDC PO (21:28)
[2023-06-02] VITALS (8 sets, daily range): BP systolic 93–109; BP diastolic 62–74; PULSE 85–96; RESP 17–24; TEMP 36.3–36.7; O2SAT 91–96
[2023-06-02] MEDS: mineral oil ENEMA 133 mL PR
[2023-06-02 05:43] LABS: Basophils % 0.3 %; Eosinophils # 0.1 10^3/uL (0.0-0.8); Eosinophils % 0.7 %; Hematocrit 37.9 % (37-53); Lymphocytes # 1.4 10^3/uL (0.8-4.8); Lymphocytes % 12.7 %; Mean Corpuscular HGB Conc 29.8 g/dL (30-55); Mean Corpuscular Hemoglobin 26.4 pg (27-33); Mean Corpuscular Volume 88.6 fl (82-101); Monocytes # 1.2 10^3/uL (0.2-0.9); Monocytes % 10.9 %; Neutrophils # 8.02 10^3/uL (1.8-7.7); Nucleated Red Blood Cells % 0 %; Platelet Count 278 10^3/cmm (157-399); Red Blood Count 4.28 10^6/uL (3.85-5.65); Red Cell Distribution Width 17.5 % (12.1-15.1); White Blood Count 10.67 10^3/uL (3.29-11.43)
[2023-06-02] MEDS: FUROsemide 10 mg/mL SDV 4mL 40 MG IVP ×3 (05:57→20:59)
[2023-06-02 05:59] LABS: Alanine Aminotransferase 41 U/L (0-41); Albumin Level 3.3 g/dL (3.5-5.2); Alkaline Phosphatase 153 U/L (40-130); Anion Gap 14.2 (5-19); Aspartate Amino Transferase 30 U/L (0-40); Blood Urea Nitrogen 56 mg/dL (8-23); Calcium 9.3 mg/dL (8.5-10.5); Carbon Dioxide 27 mmol/L (22-29); Chloride 101 mmol/L (98-107); Creatinine Clr Calc Pharmacy 47.6282; Globulin 3.1 g/dL (1.3-4.6); Glomerular Filtration Rate 30.4 mL/min (90-130); Glucose 211 mg/dL (65-115); Osmolality Calculated 308 mOsm/kg (285-295); Potassium 4.2 mmol/L (3.5-5.1); Sodium 138 mmol/L (136-145); Total Bilirubin 0.6 mg/dL (0.15-1.2); Total Protein 6.4 g/dL (6.6-8.7)
[2023-06-02 06:36] LABS: Glucose Point of Care 227 mg/dL (70-110)
--- NOTE | 2023-06-02 08:02 | P.PN_ITS ---
Subjective 2 Subjective: No new complaints today. Currently on 1 L/min supplemental O2. Feels like his breathing is easier. net negative 850ml fluid tolerating medication well slightly hypotensive today. will monitor diuresis Medications: Reviewed: Yes Vitals/I&O/Wt Last Vital Signs Temp 98.1 F 06/02/23 04:00 Pulse 94 06/02/23 04:00 Resp 23 H 06/02/23 04:00 BP 94/62 06/02/23 04:00 Pulse Ox 91 06/02/23 04:00 O2 Del Method Nasal Cannula 06/02/23 04:00 06/01/23 06/02/23 06/02/23 22:59 06:59 14:59 Intake Total 240 / 720 Output Total 1400 / 3300 850 / 4150 Balance -1160 / -2580 -850 / -3430 Weight last 48 hrs Weight 291 lb Weight 291 lb Weight 292 lb 6.4 oz Weight 293 lb Weight 286 lb Physical Exam 2 Narrative: General: No acute distress, AO x3 HEENT: PERRLA, pupils bilaterally equal and reactive, pallors not present Chest: Normal vesicular breath sounds, no added sounds, equal good air entry bilaterally CVS: S1-S2 regular, no murmurs, no tachycardia, no gallops, no rubs Abdomen: Soft, nontender, no organomegaly, bowel sounds present Neuro: No focal deficits, no facial deformity, AO x3, power 5/5 in all limbs Extremities: Lower extremity pitting edema bilaterally up to mid legs Urinary Catheter Management: Mathew: Cath Placed During This Visit: yes Reason for Continuing Indwelling Catheter: Accurate Measurement of Urinary Output in Critically Ill Patients Urinary Catheter Date of Insertion: 06/01/23 Urinary Catheter Time of Insertion: 07:25 Data 06/02/23 04:43 06/02/23 04:43 A&P Assessment and plan (1) Acute CHF (congestive heart failure): (2) Atrial fibrillation: Qualifiers: Atrial fibrillation type: paroxysmal Qualified Code(s): I48.0 - Paroxysmal atrial fibrillation (3) Dyslipidemia: (4) Anticoagulation adequate with anticoagulant therapy: (5) DVT (deep venous thrombosis): (6) Diabetes: (7) NAKUL (obstructive sleep apnea): (8) Pulmonary edema: Plan Acute systolic CHF exacerbation Echocardiogram 03/15/2023 -EF 25%, severe diffuse hypokinesia of LV, mildly increased LA size, thickened aortic valve, dilated LV. pacemaker/defibrillator present. no effusion. drop in LV since 2015 from 35% to 25% DAYANNA on CKD -minimal improvement. no worsening electrolye status Plan ? Fluid restrictions at 1000 cc, ? Issue is his creatinine is 2.2 it could be cardiorenal, potentially improved with diuresis ? Lasix 40 mg IV every 8 hours?monitor potassium, requiring monitor electrolytes, monitor urine output -of note BNP was slightly increased from 05/30 to 05/31, will get BNP for 06/02 ? serial EKG's, telemetry monitoring ? Atrial fibrillation, continue amiodarone, continue Xarelto -high dose SSI, accuchecks, lantus 10u BID, will increase to 12u BID ? Cardiomyopathy continue Entresto ? Continue aspirin, statin, Coreg ? Full code ? Xarelto for DVT prophylaxis including SCDs plan for today Attestations 2 Medical Necessity Statement*: ptatient will require 2 overnight stays due to medicalCHF exacerbation Coding Level of Care Code 49113 Diagnoses Acute CHF (congestive heart failure) I50.9 Paroxysmal atrial fibrillation I48.0 Atrial fibrillation type: paroxysmal Dyslipidemia E78.5 Anticoagulation adequate with anticoagulant therapy Z79.01 DVT (deep venous thrombosis) I82.409 Diabetes E11.9 NAKUL (obstructive sleep apnea) G47.33 Pulmonary edema J81.1
[2023-06-02] MEDS: insulin lispro 100 unit/1 mL SUBCUT ×4 (08:53→20:59)
[2023-06-02] MEDS: spironolactone 25 mg Tablet PO (08:53)
[2023-06-02] MEDS: sacubitril/valsartan 24-26 mg Tablet 3 EACH PO ×2 (08:54→17:25)
[2023-06-02] MEDS: carvedilol 3.125 mg Tablet PO ×2 (08:55→17:24)
[2023-06-02] MEDS: amiodarone 200 mg Tablet PO (08:55)
[2023-06-02] MEDS: citalopram 20 mg Tablet PO (08:55)
[2023-06-02] MEDS: allopurinol 100 mg Tablet PO (08:55)
[2023-06-02] MEDS: aspirin 81 mg Chew Tablet PO (08:55)
[2023-06-02] MEDS: rivaroxaban 10 mg Tablet 20 MG PO (08:55)
[2023-06-02] MEDS: insulin glargine 100 units/1 mL 12 UNIT SUBCUT ×2 (09:01→17:24)
--- NOTE | 2023-06-02 10:05 | PC.CHAP ---
Pastoral Care Encounter/Spiritual Assessment Type of Contact [] Declined public health doctor visit [] Patient/Family/Request visit [] Outpatient visit [] Follow-up visit [] Physician referral [] Code/Alert [x] Routine visit [] Staff referral [] Actively dying [] Patient sleeping [x] Family support [] [] Out of room [] Palliative care [] [] Receiving care in room [] Pre-surgical visit [] Trauma [] Long length of stay [] ICU visit [] Other: Relational/Emotional Strength [] Patient feels connected with others/family/visitors/staff [] Distress [] Loneliness/isolation [] Abandonment Spirituality of Patient [x] Person of Yashira [] Attends [employer] of their Yashira [x] Believes in Prayer [] Reads Bible or Christianity materials [] There are Spiritual issues to be addressed 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 Interventions [x] Prayer [x] Active listening [] Non-anxious presence [] Spiritual/emotional support [] Crisis/trauma care [] Spiritual counseling [] Bereavement support [] Provided bereavement packet [x] Provided Bible/devotional materials [] Provided toy/stuffed animal, coloring book to patient or family member [] Provided Communion [] Anointing/[place] [] Salvation [x] Completed spiritual assessment [] Other: Impact on Illness or Injury [] Angry [] Fearful [] Anxious [] Often cries [] Exhaustion [] Unable to work [] Unable to attend lutheran [] Unable to walk/stand [] Unable to read [] Unable to drive [] Unable to eat/drink [] Unable to sleep [] Unable to be with family [] Patient intubated [] Other: Summary Time spent with patient 10 min
[2023-06-02 12:16] LABS: Glucose Point of Care 256 mg/dL (70-110)
[2023-06-02] MEDS: pantoprazole 40 mg SDV IVP (13:35)
[2023-06-02 17:00] LABS: Glucose Point of Care 288 mg/dL (70-110)
[2023-06-02] MEDS: atorvastatin 40 mg Tablet 80 MG PO (17:24)
[2023-06-02 20:45] LABS: Glucose Point of Care 344 mg/dL (70-110)
[2023-06-03] VITALS (10 sets, daily range): BP systolic 84–103; BP diastolic 66–75; PULSE 83–96; RESP 17–22; TEMP 36.6–36.9; O2SAT 90–96
[2023-06-03] MEDS: pantoprazole 40 mg SDV IVP ×3 (00:56→23:14)
[2023-06-03 04:53] LABS: Alanine Aminotransferase 39 U/L (0-41); Albumin Level 3.2 g/dL (3.5-5.2); Alkaline Phosphatase 154 U/L (40-130); Anion Gap 15.9 (5-19); Aspartate Amino Transferase 26 U/L (0-40); Blood Urea Nitrogen 58 mg/dL (8-23); Calcium 8.9 mg/dL (8.5-10.5); Carbon Dioxide 24 mmol/L (22-29); Chloride 99 mmol/L (98-107); Creatinine Clr Calc Pharmacy 47.6282; Globulin 3.3 g/dL (1.3-4.6); Glomerular Filtration Rate 30.4 mL/min (90-130); Glucose 146 mg/dL (65-115); NT Pro B Type Natriuretic Pept 3799 pg/mL (0-125); Osmolality Calculated 299 mOsm/kg (285-295); Potassium 3.9 mmol/L (3.5-5.1); Sodium 135 mmol/L (136-145); Total Bilirubin 0.5 mg/dL (0.15-1.2); Total Protein 6.5 g/dL (6.6-8.7)
[2023-06-03] MEDS: FUROsemide 10 mg/mL SDV 4mL 40 MG IVP ×3 (05:41→17:39)
[2023-06-03 06:20] LABS: Glucose Point of Care 160 mg/dL (70-110)
--- NOTE | 2023-06-03 07:21 | P.PN_ITS ---
Subjective 2 Subjective: seen at bedside thei AM with BP 90/65 on RA. pt states he is overall feeling improved from yesterday. some dizziness when sitting up. good UOP, BNP decreased from 7900 to 3800. denies CP, palpitations or worsening edema. Medications: Reviewed: Yes Vitals/I&O/Wt Last Vital Signs Temp 98.2 F 06/03/23 04:00 Pulse 96 06/03/23 06:00 Resp 21 H 06/03/23 04:00 BP 84/70 06/03/23 04:00 Pulse Ox 95 06/03/23 04:00 O2 Del Method Nasal Cannula 06/03/23 04:00 06/02/23 06/03/23 06/03/23 22:59 06:59 14:59 Intake Total 236 / 1174 480 / 1654 Output Total 650 / 1650 0 / 1650 Balance -414 / -476 480 / 4 Weight last 48 hrs Weight 295 lb 11.2 oz Weight 291 lb Physical Exam 2 Narrative: General: No acute distress, AO x3, RA HEENT: PERRLA, pupils bilaterally equal and reactive, pallors not present lungs: Normal vesicular breath sounds, no added sounds, equal good air entry bilaterally CVS: S1-S2 regular, no murmurs, no tachycardia, no gallops, no rubs, mild 1+ pitting edema to mid leg bilateral Abdomen: Soft, nontender, no organomegaly, bowel sounds present Neuro: No focal deficits, no facial deformity, AO x3, strength 5/5 in all limbs Data 06/02/23 04:43 06/03/23 03:38 A&P Assessment and plan (1) Acute CHF (congestive heart failure): (2) Atrial fibrillation: Qualifiers: Atrial fibrillation type: paroxysmal Qualified Code(s): I48.0 - Paroxysmal atrial fibrillation (3) Dyslipidemia: (4) Anticoagulation adequate with anticoagulant therapy: (5) DVT (deep venous thrombosis): (6) Diabetes: (7) NAKUL (obstructive sleep apnea): (8) Pulmonary edema: Plan Acute systolic CHF exacerbation Echocardiogram 03/15/2023 -EF 25%, severe diffuse hypokinesia of LV, mildly increased LA size, thickened aortic valve, dilated LV. pacemaker/defibrillator present. no effusion. drop in LV since 2014 from 35% to 25% DAYANNA on CKD -minimal improvement. no worsening electrolye status -has OP nephrology encounter set up Plan ? Fluid restrictions increased to 1250 cc, ? Issue is his creatinine is 2.2 it could be cardiorenal, stable over past 3 days. has OP nephrology encounter in mid may already set up by PCP ? Lasix 40 mg IV reduced from TID to BID. no electrolyte derangement, continue monitoring UOP -of note, BNP has reduced from 7900 (06/01) to 3800 (06/02) ? serial EKG's, telemetry monitoring ? Atrial fibrillation, continue amiodarone, continue Xarelto -high dose SSI, accuchecks, lantus 12u BID ? Cardiomyopathy continue Entresto ? Continue aspirin, statin, Coreg ? Full code ? Xarelto for DVT prophylaxis including SCDs plan for today Attestations 2 Medical Necessity Statement*: will require 2 overnight stays for heart failure exacerbation Coding Level of Care Code 75278 Diagnoses Acute CHF (congestive heart failure) I50.9 Paroxysmal atrial fibrillation I48.0 Atrial fibrillation type: paroxysmal Dyslipidemia E78.5 Anticoagulation adequate with anticoagulant therapy Z79.01 DVT (deep venous thrombosis) I82.409 Diabetes E11.9 NAKUL (obstructive sleep apnea) G47.33 Pulmonary edema J81.1
--- NOTE | 2023-06-03 08:13 | PC.NURSE ---
Provider changed order for NS to 250ml bolus and cancelled the 500ml bolus, due to lower blood pressures. Provider also increased his fluid restriction to 1250.
[2023-06-03] MEDS: amiodarone 200 mg Tablet PO (08:25)
[2023-06-03] MEDS: carvedilol 3.125 mg Tablet PO ×2 (08:25→17:38)
[2023-06-03] MEDS: citalopram 20 mg Tablet PO (08:25)
[2023-06-03] MEDS: rivaroxaban 10 mg Tablet 20 MG PO (08:25)
[2023-06-03] MEDS: spironolactone 25 mg Tablet PO (08:26)
[2023-06-03] MEDS: allopurinol 100 mg Tablet PO (08:26)
[2023-06-03] MEDS: aspirin 81 mg Chew Tablet PO (08:26)
[2023-06-03] MEDS: sacubitril/valsartan 24-26 mg Tablet 3 EACH PO ×2 (08:26→17:38)
[2023-06-03] MEDS: insulin glargine 100 units/1 mL 12 UNIT SUBCUT ×2 (08:27→17:39)
[2023-06-03] MEDS: insulin lispro 100 unit/1 mL SUBCUT ×4 (08:27→21:04)
[2023-06-03] MEDS: sodium chloride 0.9% 250 ML IV (08:28)
[2023-06-03 11:38] LABS: Glucose Point of Care 317 mg/dL (70-110)
[2023-06-03] MEDS: atorvastatin 40 mg Tablet 80 MG PO (17:38)
[2023-06-03 17:40] LABS: Glucose Point of Care 309 mg/dL (70-110)
[2023-06-03 20:46] LABS: Glucose Point of Care 371 mg/dL (70-110)
[2023-06-04] VITALS (14 sets, daily range): BP systolic 93–118; BP diastolic 63–81; PULSE 82–96; RESP 13–23; TEMP 36.4–36.7; O2SAT 90–96; BMI 41.8
[2023-06-04 04:18] LABS: Alanine Aminotransferase 43 U/L (0-41); Albumin Level 3.1 g/dL (3.5-5.2); Alkaline Phosphatase 191 U/L (40-130); Anion Gap 14.8 (5-19); Aspartate Amino Transferase 28 U/L (0-40); Blood Urea Nitrogen 58 mg/dL (8-23); Calcium 8.6 mg/dL (8.5-10.5); Carbon Dioxide 24 mmol/L (22-29); Chloride 98 mmol/L (98-107); Creatinine Clr Calc Pharmacy 45.9539; Globulin 3.2 g/dL (1.3-4.6); Glomerular Filtration Rate 28.9 mL/min (90-130); Glucose 186 mg/dL (65-115); NT Pro B Type Natriuretic Pept 3809 pg/mL (0-125); Osmolality Calculated 297 mOsm/kg (285-295); Potassium 3.8 mmol/L (3.5-5.1); Sodium 133 mmol/L (136-145); Total Bilirubin 0.5 mg/dL (0.15-1.2); Total Protein 6.3 g/dL (6.6-8.7)
[2023-06-04 06:28] LABS: Glucose Point of Care 246 mg/dL (70-110)
[2023-06-04] MEDS: insulin lispro 100 unit/1 mL SUBCUT ×4 (08:27→21:26)
[2023-06-04] MEDS: FUROsemide 10 mg/mL SDV 4mL 40 MG IVP ×2 (08:27→18:11)
[2023-06-04] MEDS: insulin glargine 100 units/1 mL 12 UNIT SUBCUT (08:28)
[2023-06-04] MEDS: aspirin 81 mg Chew Tablet PO (08:28)
[2023-06-04] MEDS: citalopram 20 mg Tablet PO (08:29)
[2023-06-04] MEDS: sacubitril/valsartan 24-26 mg Tablet 3 EACH PO ×2 (08:29→18:11)
[2023-06-04] MEDS: allopurinol 100 mg Tablet PO (08:29)
[2023-06-04] MEDS: rivaroxaban 10 mg Tablet 20 MG PO (08:29)
[2023-06-04] MEDS: spironolactone 25 mg Tablet PO (08:29)
[2023-06-04] MEDS: carvedilol 3.125 mg Tablet PO ×2 (08:29→18:11)
[2023-06-04] MEDS: amiodarone 200 mg Tablet PO (08:29)
--- NOTE | 2023-06-04 10:17 | P.PN_ITS ---
Subjective 2 Subjective: No acute events overnight. Patient seen at his bedside today, reports no new complaints. He feels better today, able to ambulate to the bathroom with no worsening SOB. He denies chest pain, worsening SOB . He still reports some lower extremity edema Medications: Reviewed: Yes Vitals/I&O/Wt Last Vital Signs Temp 97.5 F L 06/04/23 04:06 Pulse 94 06/04/23 09:43 Resp 21 H 06/04/23 09:43 BP 102/69 06/04/23 09:43 Pulse Ox 90 06/04/23 00:09 O2 Del Method Room Air 06/03/23 12:00 06/03/23 06/04/23 06/04/23 22:59 06:59 14:59 Intake Total 240 / 730 240 / 240 Output Total 650 / 2000 1000 / 3000 Balance -410 / -1270 -1000 / -2270 240 / 240 Weight last 48 hrs Weight 135.851 kg Weight 134.127 kg Physical Exam 2 Const: COMMON NORMALS: no acute distress, patient oriented x3 and alert HENMT: COMMON NORMALS: normocephalic, atraumatic and Normal external nose present HEAD & SCALP: normocephalic and atraumatic FACE & SINUS: normal facial exam NOSE: Normal external nose present and Normal nares present M OUTH: Normal oral and palatal mucosa present Eye: GENERAL EYE: appearance normal, both eyes and all related structures Chest: CHEST: Yes Symmetrical chest wall rise OTHER: Mildly diminished breath sounds , no wheezes or crackles Cardio: COMMON NORMALS: regular rate, regular rhythm, S1 normal heart sound present and S2 normal heart sound present RATE: regular rate RHYTHM: r egular rhythm HEART SOUNDS: S1 normal heart sound present and S2 normal heart sound present OTHER: 1+ Peripheral edema BL GI: COMMON NORMALS: Normal to inspection, nondistended, normoactive bowel sounds present, Soft to palpation and non-tender PALPATION: Yes Soft to palpation Neuro: COMMON NORMALS: patient oriented x3 SENSORIUM/ORIENTATION: Yes alert Urinary Catheter Management: Mathew: Cath Placed During This Visit: yes Reason for Continuing Indwelling Catheter: Accurate Measurement of Urinary Output in Critically Ill Patients Urinary Catheter Date of Insertion: 06/01/23 Urinary Catheter Time of Insertion: 07:25 Data 06/02/23 04:43 06/04/23 03:33 A&P Assessment and plan (1) Acute CHF (congestive heart failure): (2) Atrial fibrillation: Qualifiers: Atrial fibrillation type: paroxysmal Qualified Code(s): I48.0 - Paroxysmal atrial fibrillation (3) Dyslipidemia: (4) Anticoagulation adequate with anticoagulant therapy: (5) DVT (deep venous thrombosis): (6) Diabetes: (7) NAKUL (obstructive sleep apnea): (8) Pulmonary edema: Plan #Acute Decompensated HF with reduced EF - Recent Echocardiogram 03/15/2023 -EF 25%, severe diffuse hypokinesia of LV, mildly increased LA size, thickened aortic valve, dilated LV. pacemaker/defibrillator present. no effusion. drop in LV since 2015 from 35% to 25% -Patient is status post ICD placement -Patient reports improvement in symptoms, able to ambulate to the bathroom -He still has some LE edema -Will continue IV lasix today 40mg BID , ct strict i/o's, fluid restriction 1250cc/24hrs -Ct Telemetry monitoring -Ct goal directed medical therapy with - entresto , beta bloker , aldactone . 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 -Continue aspirin and statin #DAYANNA on CKD -Patient seems to have progression oif his CKD -His Cr today similar to admission at 2.3 , his creatinine about a month ago was 2.1. -Possible patient is having cardiorenal syndrome. -Will give dose of albumin today -Avoid nephrotoxic medications -Continue to monitor kidney function -He will follow with nephrology outpatient # History of atrial fibrillation -Patient is currently rate controlled -Continue amiodarone, continue Xarelto # Type 2 diabetes -Continue glucose checks, sliding scale insulin, increase Mgpiep97 units BID VTE prophylax-Xarelto Attestations 2 Medical Necessity Statement*: Patient continues to require inpatient hospital stay for IV Lasix for decompensated heart failure. Possible discharge in next 24 to 48 hours Coding Level of Care Code Acute Code for g Fwd Diagnoses Acute CHF (congestive heart failure) I50.9 Paroxysmal atrial fibrillation I48.0 Atrial fibrillation type: paroxysmal Dyslipidemia E78.5 Anticoagulation adequate with anticoagulant therapy Z79.01 DVT (deep venous thrombosis) I82.409 Diabetes E11.9 NAKUL (obstructive sleep apnea) G47.33 Pulmonary edema J81.1
[2023-06-04 11:46] LABS: Glucose Point of Care 388 mg/dL (70-110)
[2023-06-04] MEDS: albumin 12.5 GM/50 ML VIAL IV (12:08)
[2023-06-04] MEDS: pantoprazole 40 mg SDV IVP (12:08)
[2023-06-04 18:01] LABS: Glucose Point of Care 375 mg/dL (70-110)
[2023-06-04] MEDS: insulin glargine 100 units/1 mL 25 UNIT SUBCUT (18:10)
[2023-06-04] MEDS: atorvastatin 40 mg Tablet 80 MG PO (18:11)
[2023-06-04 21:32] LABS: Glucose Point of Care 353 mg/dL (70-110)
[2023-06-05] VITALS (10 sets, daily range): BP systolic 92–121; BP diastolic 64–77; PULSE 88–101; RESP 20–96; TEMP 36.6–37; O2SAT 90–95
[2023-06-05] MEDS: pantoprazole 40 mg SDV IVP ×3 (02:33→20:57)
[2023-06-05] MEDS: cetirizine 10 mg Tablet PO (02:33)
[2023-06-05 05:27] LABS: Albumin Level 3.4 g/dL (3.5-5.2); Anion Gap 15.1 (5-19); Blood Urea Nitrogen 60 mg/dL (8-23); Calcium 8.8 mg/dL (8.5-10.5); Carbon Dioxide 25 mmol/L (22-29); Chloride 101 mmol/L (98-107); Creatinine Clr Calc Pharmacy 50.7094; Glomerular Filtration Rate 32.1 mL/min (90-130); Glucose 206 mg/dL (65-115); NT Pro B Type Natriuretic Pept 4270 pg/mL (0-125); Phosphorus 3.4 mg/dL (2.5-4.5); Potassium 4.1 mmol/L (3.5-5.1); Sodium 137 mmol/L (136-145)
[2023-06-05 06:25] LABS: Glucose Point of Care 198 mg/dL (70-110)
[2023-06-05] MEDS: insulin glargine 100 units/1 mL 25 UNIT SUBCUT ×2 (08:18→18:54)
[2023-06-05] MEDS: allopurinol 100 mg Tablet PO (08:19)
[2023-06-05] MEDS: rivaroxaban 10 mg Tablet 20 MG PO (08:19)
[2023-06-05] MEDS: carvedilol 3.125 mg Tablet PO ×2 (08:19→18:54)
[2023-06-05] MEDS: amiodarone 200 mg Tablet PO (08:19)
[2023-06-05] MEDS: aspirin 81 mg Chew Tablet PO (08:19)
[2023-06-05] MEDS: polyethylene glycol 3350 Pkt 17 gm PO (08:19)
[2023-06-05] MEDS: citalopram 20 mg Tablet PO (08:20)
[2023-06-05] MEDS: sacubitril/valsartan 24-26 mg Tablet 3 EACH PO ×2 (08:20→18:54)
[2023-06-05] MEDS: spironolactone 25 mg Tablet PO (08:21)
[2023-06-05] MEDS: insulin lispro 100 unit/1 mL SUBCUT ×4 (08:36→20:56)
[2023-06-05] MEDS: FUROsemide 10 mg/mL SDV 4mL 40 MG IVP ×2 (09:03→18:54)
--- NOTE | 2023-06-05 10:35 | P.PN_ITS ---
Subjective 2 Subjective: No acute events overnight. Patient seen at his bedside today, reports no new complaints. He feels better today, able to ambulate to the bathroom with no worsening SOB. He denies chest pain, worsening SOB . He continues to have lower extremity edema Medications: Reviewed: Yes Vitals/I&O/Wt Last Vital Signs Temp 98.0 F 06/05/23 07:32 Pulse 89 06/05/23 10:24 Resp 96 H 06/05/23 07:32 BP 92/77 06/05/23 07:32 Pulse Ox 95 06/05/23 10:24 O2 Del Method Room Air 06/05/23 10:24 06/04/23 06/05/23 06/05/23 22:59 06:59 14:59 Intake Total 240 / 720 110 / 830 400 / 400 Output Total 850 / 2250 600 / 2850 300 / 300 Balance -610 / -1530 -490 / -2020 100 / 100 Weight last 48 hrs Weight 135.987 kg Weight 135.851 kg Physical Exam 2 Const: COMMON NORMALS: no acute distress, patient oriented x3 and alert HENMT: COMMON NORMALS: normocephalic, atraumatic and Normal external nose present HEAD & SCALP: normocephalic and atraumatic FACE & SINUS: normal facial exam NOSE: Normal external nose present and Normal nares present M OUTH: Normal oral and palatal mucosa present Eye: GENERAL EYE: appearance normal, both eyes and all related structures Chest: CHEST: Yes Symmetrical chest wall rise OTHER: Mildly diminished breath sounds , no wheezes or crackles Resp: EFFORT & INSPECTION: Yes symmetric chest movement AUSCULTATION: d iminished lung sounds Cardio: COMMON NORMALS: regular rate, regular rhythm, S1 normal heart sound present and S2 normal heart sound present RATE: regular rate RHYTHM: r egular rhythm HEART SOUNDS: S1 normal heart sound present and S2 normal heart sound present OTHER: 2-3+ Peripheral edema BL GI: COMMON NORMALS: Normal to inspection, nondistended, normoactive bowel sounds present, Soft to palpation and non-tender PALPATION: Yes Soft to palpation Neuro: COMMON NORMALS: patient oriented x3 SENSORIUM/ORIENTATION: Yes alert Urinary Catheter Management: Mathew: Cath Placed During This Visit: yes, but has since been removed by the nurse Reason for Continuing Indwelling Catheter: Accurate Measurement of Urinary Output in Critically Ill Patients Urinary Catheter Date of Insertion: 06/01/23 Urinary Catheter Time of Insertion: 07:25 Date Urinary Catheter Removed: 06/04/23 Time Urinary Catheter Discontinued: 14:00 Data 06/02/23 04:43 06/05/23 04:31 A&P Assessment and plan (1) Acute CHF (congestive heart failure): (2) Atrial fibrillation: Qualifiers: Atrial fibrillation type: paroxysmal Qualified Code(s): I48.0 - Paroxysmal atrial fibrillation (3) Dyslipidemia: (4) Anticoagulation adequate with anticoagulant therapy: (5) DVT (deep venous thrombosis): (6) Diabetes: (7) NAKUL (obstructive sleep apnea): (8) Pulmonary edema: Plan #Acute Decompensated HF with reduced EF - Recent Echocardiogram 03/15/2023 -EF 25%, severe diffuse hypokinesia of LV, mildly increased LA size, thickened aortic valve, dilated LV. pacemaker/defibrillator present. no effusion. drop in LV since 2014 from 35% to 25% -Patient is status post ICD placement -Patient reports improvement in symptoms, able to ambulate to the bathroom -He still has some LE edema , seems worsening today -Will continue IV lasix today 40mg BID ,, will give dose of metolazone , possibly increase dose of lasix , ct strict i/o's, fluid restriction 1250cc/24hrs -Ct Telemetry monitoring -Ct goal directed medical therapy with - entresto , beta bloker , aldactone . 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 -Continue aspirin and statin #DAYANNA on CKD -Patient seems to have progression of his CKD -His Cr today is stable a 2.1 , his creatinine about a month ago was 2.1. -Possible patient is having cardiorenal syndrome. -Will give another dose of albumin today -Avoid nephrotoxic medications -Continue to monitor kidney function -He will follow with nephrology outpatient # History of atrial fibrillation -Patient is currently rate controlled -Continue amiodarone, continue Xarelto # Type 2 diabetes -Continue glucose checks, sliding scale insulin, increase Lantus 25 units BID VTE prophylax-Xarelto Attestations 2 Medical Necessity Statement*: Patient continues to require inpatient hospital stay for IV Lasix for decompensated heart failure. Possible discharge in next 24 to 48 hours Coding Level of Care Code Acute Code for Chg Fwd Diagnoses Acute CHF (congestive heart failure) I50.9 Paroxysmal atrial fibrillation I48.0 Atrial fibrillation type: paroxysmal Dyslipidemia E78.5 Anticoagulation adequate with anticoagulant therapy Z79.01 DVT (deep venous thrombosis) I82.409 Diabetes E11.9 NAKUL (obstructive sleep apnea) G47.33 Pulmonary edema J81.1
[2023-06-05] MEDS: albumin 12.5 GM/50 ML VIAL IV (11:10)
[2023-06-05] MEDS: metOLazone 5 MG Tablet 2.5 MG PO (11:10)
[2023-06-05 11:45] LABS: Glucose Point of Care 261 mg/dL (70-110)
[2023-06-05 17:14] LABS: Glucose Point of Care 321 mg/dL (70-110)
[2023-06-05] MEDS: atorvastatin 40 mg Tablet 80 MG PO (18:54)
[2023-06-05 20:50] LABS: Glucose Point of Care 364 mg/dL (70-110)
[2023-06-06] VITALS (7 sets, daily range): BP systolic 96–116; BP diastolic 60–72; PULSE 78–89; RESP 19–25; TEMP 36.5–37; O2SAT 90–96
[2023-06-06 04:29] LABS: Albumin Level 3.4 g/dL (3.5-5.2); Blood Urea Nitrogen 60 mg/dL (8-23); Carbon Dioxide 26 mmol/L (22-29); Chloride 99 mmol/L (98-107); Creatinine Clr Calc Pharmacy 50.7094; Glomerular Filtration Rate 32.1 mL/min (90-130); Glucose 182 mg/dL (65-115); Phosphorus 3.1 mg/dL (2.5-4.5); Sodium 135 mmol/L (136-145)
--- NOTE | 2023-06-06 05:02 | PC.NURSE ---
This RN agrees with all documentations and administrations made by SN Kristel for this patient.
[2023-06-06 06:19] LABS: Glucose Point of Care 164 mg/dL (70-110)
[2023-06-06] MEDS: insulin lispro 100 unit/1 mL SUBCUT ×2 (08:32→12:41)
[2023-06-06] MEDS: carvedilol 3.125 mg Tablet PO (08:34)
[2023-06-06] MEDS: FUROsemide 10 mg/mL SDV 4mL 40 MG IVP (08:34)
[2023-06-06] MEDS: citalopram 20 mg Tablet PO (08:34)
[2023-06-06] MEDS: aspirin 81 mg Chew Tablet PO (08:34)
[2023-06-06] MEDS: allopurinol 100 mg Tablet PO (08:34)
[2023-06-06] MEDS: amiodarone 200 mg Tablet PO (08:34)
[2023-06-06] MEDS: insulin glargine 100 units/1 mL 25 UNIT SUBCUT (08:34)
[2023-06-06] MEDS: polyethylene glycol 3350 Pkt 17 gm PO (08:35)
[2023-06-06] MEDS: spironolactone 25 mg Tablet PO (08:35)
[2023-06-06] MEDS: sacubitril/valsartan 24-26 mg Tablet 3 EACH PO (08:35)
[2023-06-06] MEDS: rivaroxaban 10 mg Tablet 20 MG PO (08:35)
[2023-06-06 10:54] LABS: Glucose Point of Care 284 mg/dL (70-110)
[2023-06-06] MEDS: pantoprazole 40 mg SDV IVP (12:41)
--- NOTE | 2023-06-06 13:23 | PM.DCS ---
Discharge Providers Date of Admission: 05/31/23 22:12 Date of Discharge: June 06, 2023 Attending Provider at Admission: Marco Rust MD Attending Provider at Discharge: Thea Meade MD Primary Care Provider: Rochelle Rodriges MD Diagnoses at Discharge Discharge Diagnosis (1) Acute CHF (congestive heart failure): Status: Acute (2) Atrial fibrillation: Status: Acute Qualifiers: Atrial fibrillation type: paroxysmal Qualified Code(s): I48.0 - Paroxysmal atrial fibrillation (3) Dyslipidemia: Status: Acute (4) Anticoagulation adequate with anticoagulant therapy: Status: Acute (5) DVT (deep venous thrombosis): Status: Acute (6) Diabetes: Status: Acute (7) NAKUL (obstructive sleep apnea): Status: Acute (8) Pulmonary edema: Status: Acute Reason for Visit Reason for Visit: abdomen pain/ fluid build up Hospital Course Hospital Course In summary, Mr Eliseo Reyes is a 62 year old man with PMH of insulin-dependent type 2 diabetes mellitus, cardiomyopathy, systolic CHF, sleep apnea, atrial fibrillation on Xarelto, who presented for further evaluation shortness of breath, and bilateral lower extremity edema. He was admitted for further evaluation and management. Patient symptoms are in the setting of decompensated heart failure.. Patient was managed with IV Lasix and gradual improvement in his symptoms. Most recent echo showed an EF of 25%. Patient is status post AICD. Patient noted to have elevated creatinine since April 2023 , he seems to have progression of his CKD, likely cardiorenal in etiology. Patient was stable to be hospitalization. Dose of Lasix was increased to 80 mg twice daily at the time of discharge. Patient will continue other goal-directed medical therapy with beta-candice, Entresto, spironolactone. He will have repeat renal function panel within 1 week and follow-up with cardiology and nephrology. Physical Exam Const: COMMON NORMALS: no acute distress, patient oriented x3 and alert HENMT: COMMON NORMALS: normocephalic, atraumatic and Normal external nose present HEAD & SCALP: normocephalic and atraumatic FACE & SINUS: normal facial exam NOSE: Normal external nose present and Normal nares present MOUTH: Normal oral and palatal mucosa present Eye: GENERAL EYE: appearance normal, both eyes and all related structures Chest: CHEST: Yes Symmetrical chest wall rise OTHER: Mildly diminished breath sounds , no wheezes or crackles Resp: EFFORT & INSPECTION: Yes symmetric chest movement AUSCULTATION: diminished lung sounds Cardio: COMMON NORMALS: regular rate, regular rhythm, S1 normal heart sound present and S2 normal heart sound present RATE: regular rate RHYTHM: regular rhythm HEART SOUNDS: S1 normal heart sound present and S2 normal heart sound present OTHER: + Peripheral edema BL GI: COMMON NORMALS: Normal to inspection, nondistended, normoactive bowel sounds present, Soft to palpation and non-tender PALPATION: Yes Soft to palpation Neuro: COMMON NORMALS: patient oriented x3 SENSORIUM/ORIENTATION: Yes alert Urinary Catheter Management: Mathew: Cath Placed During This Visit: yes, but has since been removed by the nurse Reason for Continuing Indwelling Catheter: Accurate Measurement of Urinary Output in Critically Ill Patients Urinary Catheter Date of Insertion: 06/01/23 Urinary Catheter Time of Insertion: 07:25 Date Urinary Catheter Removed: 06/04/23 Time Urinary Catheter Discontinued: 14:00 Discharge Data Studies Completed and Pending Completed Studies During Hospitalization Category Date Time Status XR chest 1V portable [id number] Stat Exams 05/31/23 19:54 Completed Radiology Impressions Chest X-Ray 05/31/23 19:54 IMPRESSION: 1. Small right-sided pleural effusion. Laboratory Results WBC 10.67 10^3/uL (3.29-11.43) 06/02/23 04:43 RBC 4.28 10^6/uL (3.85-5.65) 06/02/23 04:43 Hgb 11.30 g/dL (11.27-16.99) 06/02/23 04:43 Hct 37.9 % (37-53) 06/02/23 04:43 MCV 88.6 fl (82-101) 06/02/23 04:43 MCH 26.4 pg (27-33) L 06/02/23 04:43 MCHC 29.8 g/dL (30-55) L 06/02/23 04:43 RDW 17.5 % (12.1-15.1) H 06/02/23 04:43 Plt Count 278 10^3/cmm (157-399) 06/02/23 04:43 MPV 10.0 fL (7.4-10.4) 06/02/23 04:43 Neut % (Auto) 75.0 % 06/02/23 04:43 Lymph % (Auto) 12.7 % 06/02/23 04:43 [place] % (Auto) 10.9 % 06/02/23 04:43 Eos % (Auto) 0.7 % 06/02/23 04:43 Baso % (Auto) 0.3 % 06/02/23 04:43 Neut # (Auto) 8.02 10^3/uL (1.8-7.7) H 06/02/23 04:43 Lymph # (Auto) 1.4 10^3/uL (0.8-4.8) 06/02/23 04:43 [place] # (Auto) 1.2 10^3/uL (0.2-0.9) H 06/02/23 04:43 Eos # (Auto) 0.1 10^3/uL (0.0-0.8) 06/02/23 04:43 Baso # (Auto) 0.0 10^3/uL (0.0-0.1) 06/02/23 04:43 Nucleated RBC % (auto) 0 % 06/02/23 04:43 Nucleated RBCs # 0.0 /100WBC 06/02/23 04:43 Sodium 135 mmol/L (136-145) L 06/06/23 03:41 Potassium 4.0 mmol/L (3.5-5.1) 06/06/23 03:41 Chloride 99 mmol/L (98-107) 06/06/23 03:41 Carbon Dioxide 26 mmol/L (22-29) 06/06/23 03:41 Anion Gap 14.0 (5-19) 06/06/23 03:41 BUN 60 mg/dL (8-23) H 06/06/23 03:41 Creatinine 2.1 mg/dL (0.7-1.2) H 06/06/23 03:41 GFR Calculation 32.1 mL/min (90-130) L 06/06/23 03:41 Glucose 182 mg/dL (65-115) H 06/06/23 03:41 POC Glucose 284 mg/dL (70-110) H 06/06/23 10:48 Calculated Osmolality 297 mOsm/kg (285-295) H 06/04/23 03:33 Lactic Acid 1.3 mmol/L (0.5-2.2) 06/01/23 00:15 Calcium 9.0 mg/dL (8.5-10.5) 06/06/23 03:41 Phosphorus 3.1 mg/dL (2.5-4.5) 06/06/23 03:41 Magnesium 2.4 mg/dL (1.7-2.3) H 06/01/23 03:20 Total Bilirubin 0.5 mg/dL (0.15-1.2) 06/04/23 03:33 AST 28 U/L (0-40) 06/04/23 03:33 ALT 43 U/L (0-41) H 06/04/23 03:33 Alkaline Phosphatase 191 U/L (40-130) H 06/04/23 03:33 Troponin T Baseline 95 ng/L (0-15) H 05/31/23 19:34 Troponin T 120 Minute 95.62 ng/L (0-15) H 05/31/23 21:23 Delta Troponin T 0.62 ABS# (0-10) 05/31/23 21:23 Troponin T Hi Sens 6Hr 96.49 ng/L (0-15) H 06/01/23 00:15 Troponin T Hi Sens 6Hr Delta 1.49 ng/L (0-12) 06/01/23 00:15 C-Reactive Protein 62.3 mg/L (0.0-4.9) H 05/31/23 19:34 NT-Pro-B Natriuret Pep 4270 pg/mL (0-125) H 06/05/23 04:31 Total Protein 6.3 g/dL (6.6-8.7) L 06/04/23 03:33 Albumin 3.4 g/dL (3.5-5.2) L 06/06/23 03:41 Globulin 3.2 g/dL (1.3-4.6) 06/04/23 03:33 Procalcitonin 0.30 ng/mL (0-0.5) 05/31/23 19:34 TSH 3.77 uIU/mL (0.27-4.20) 05/31/23 19:34 Adenovirus (PCR) Not detected (NOT DETECT) 05/31/23 20:27 C. pneumoniae DNA (PCR) Not detected (NOT DETECT) 05/31/23 20:27 Coronavirus 229E (PCR) Not detected (NOT DETECT) 05/31/23 20:27 Human Metapneumovir PCR Not detected (NOT DETECT) 05/31/23 20:27 Influenza A (H1) PCR Not detected (NOT DETECT) 05/31/23 20: Influ A (H1/09) PCR Not detected (NOT DETECT) 05/31/23 20: Influenza A (H3) PCR Not detected (NOT DETECT) 05/31/23 20:27 Influenza Type A (PCR) Not detected (NOT DETECT) 05/31/23 20:27 Influenza Type B (PCR) Not detected (NOT DETECT) 05/31/23 20:27 M. pneumoniae (PCR) Not detected (NOT DETECT) 05/31/23 20: Parainfluenza 1 (PCR) Not detected (NOT DETECT) 05/31/23 20: Parainfluenza 2 (PCR) Not detected (NOT DETECT) 05/31/23 20: Parainfluenza 3 (PCR) Not detected (NOT DETECT) 05/31/23 20:27 Parainfluenza 4 (PCR) Not detected (NOT DETECT) 05/31/23 20:27 RSV Type A (PCR) Not detected (NOT DETECT) 05/31/23 20:27 RSV Type B (PCR) Not detected (NOT DETECT) 05/31/23 20:27 Entero/Rhino (PCR) Not detected (NOT DETECT) 05/31/23 20:27 SARS-CoV-2 (PCR) Not detected (NOT DETECT) 05/31/23 20: Vitals Last Vital Signs Temp 98.5 F 06/06/23 12:00 Pulse 83 06/06/23 12:00 Resp 19 H 06/06/23 12:00 BP 104/69 06/06/23 12:00 Pulse Ox 93 06/06/23 12:00 O2 Del Method Room Air 06/06/23 09:24 Discharge Plan Discharge Patient Disposition: Home Condition: Stable Prescriptions: New spironolactone 25 mg Tablet 25 mg PO DAILY 30 Days Qty: 30 0RF Entresto 97-103 mg tablet 1 tab PO BID Qty: 60 0RF Lasix 80 mg tablet 80 mg PO BID Qty: 60 0RF Continued citalopram 20 mg tablet 20 mg PO DAILY allopurinol 100 mg tablet 100 mg PO DAILY Xarelto 20 mg tablet 20 mg PO DAILY terazosin 1 mg capsule 1 mg PO BEDTIME amiodarone 200 mg tablet 200 mg PO DAILY Qty: 90 1RF atorvastatin 80 mg tablet 80 mg PO QPM insulin glargine [Lantus U-100 Insulin] 100 unit/mL solution 25 unit SUBCUT BID albuterol sulfate 90 mcg/actuation HFA aerosol inhaler 2 inh INHALATION Q4H PRN (Reason: shortness of breath or wheezing) Qty: 6.7 1RF ergocalciferol (vitamin D2) 1,250 mcg (50,000 unit) capsule 50,000 unit PO Q7D Rx Instructions: on friday aspirin 81 mg tablet,chewable 81 mg PO DAILY carvedilol 3.125 mg Tablet 3.125 mg PO BID Qty: 60 0RF Jardiance 25 mg Tablet 25 mg PO QAM Humalog KwikPen Insulin 200 unit/mL (3 mL) Insulin Pen 50 unit SUBCUT TIDWMEAL Qty: 6 0RF Discontinued furosemide 40 mg tablet See Rx Instructions .ROUTE .COMPLEX Hold Instructions: Resume on 05/01/23. 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 Fwd Diagnoses Acute CHF (congestive heart failure) I50.9 Paroxysmal atrial fibrillation I48.0 Atrial fibrillation type: paroxysmal Dyslipidemia E78.5 Anticoagulation adequate with anticoagulant therapy Z79.01 DVT (deep venous thrombosis) I82.409 Diabetes E11.9 NAKUL (obstructive sleep apnea) G47.33 Pulmonary edema J81.1
== END 2023-06-06 15:07 | disposition home or self-care (01) | DRG 292 ==
LOC: ER 22:11 → CSU 22:35
PROVIDERS: Family Medicine; Student in an Organized Health Care Education/Training Program; Admitting Provider Family Medicine; Emergency Provider Emergency Medicine; PCP Internal Medicine; Visit Provider Student in an Organized Health Care Education/Training Program
DX: I50.23 Acute on chronic systolic (congestive) heart failure (principal); I42.9 Cardiomyopathy, unspecified; I48.20 Chronic atrial fibrillation, unspecified; N17.9 Acute kidney failure, unspecified; J81.1 Chronic pulmonary edema; E78.5 Hyperlipidemia, unspecified; Z79.01 Long term (current) use of anticoagulants; E11.22 Type 2 diabetes mellitus with diabetic chronic kidney disease; N18.9 Chronic kidney disease, unspecified; Z95.810 Presence of automatic (implantable) cardiac defibrillator; Z79.4 Long term (current) use of insulin; Z79.82 Long term (current) use of aspirin
CPT/HCPCS: 12345; 36415; 36416; 51702; 71045; 80048; 80053; 80069; 82962; 83605; 83735; 83880; 84100; 84145; 84443; 84484; 85025; 86140; 87486; 87581; 87633; 93005; 94640; 94664; 96372; 96374; 96375; 96376; 99285; C9113; J1815; J1940; J2405; J7050; P9047

== ENCOUNTER 2023-06-11 09:49 | Outpatient (CLI) | payer MEDICARE, SELFPAY | END 2023-06-11 09:50 | disposition home or self-care (01) | LOC: SLEEP 06-16 09:51 | PROVIDERS: PCP Internal Medicine; Visit Provider Internal Medicine | DX: I50.42 Chronic combined systolic (congestive) and diastolic (congestive) heart failure (principal) | CPT/HCPCS: 94762 ==

== ENCOUNTER 2023-08-29 08:45 | Inpatient (IN) | payer MEDICARE, MEDICAID, SELFPAY ==
[2023-08-29] VITALS (18 sets, daily range): BP systolic 89–134; BP diastolic 62–102; PULSE 52–94; RESP 10–25; TEMP 36.6–36.9; O2SAT 90–96; BMI 37.6
--- NOTE | 2023-08-29 08:52 | ECG_ITS ---
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 Measurements Intervals [place] Rate: 93 P: -88 IN: 260 QRS: 125 QRSD: 122 T: 123 QT: 375 QTc: 468 Interpretive Statements SINUS RHYTHM WITH FIRST DEGREE AV BLOCK ANTEROLATERAL MYOCARDIAL INFARCTION , OF INDETERMINATE AGE [40+ ms Q WAVE IN I/aVL/V3-V6] Compared to ECG 06/01/2023 02:25:00 First degree AV block now present Atrial fibrillation no longer present Ventricular premature complex(es) no longer present Aberrant conduction of supraventricular beat(s) no longer present Intraventricular conduction delay no longer present Myocardial infarct finding still present Electronically Signed On 08-29-2023 18:51:13 CDT by Santiago Walden M.D. [email or web address]
--- NOTE | 2023-08-29 08:52 | XR_ITS ---
WS: [id number] XR chest 1V portable [id number] REASON FOR EXAM: SOB FINDINGS: The chest is unchanged compared to 05/30/2023. Right chest cardiac device with drains right subclavian vein lead to the right ventricular apex. Mild tortuosity of the thoracic aorta. Moderate cardiomegaly. Calcified granulomas disease in both hemithoraces. No acute or subacute pulmonary parenchymal or pleu ral abnormality. Pleural thickening in the right costophrenic angle. Mild degenerative spondylosis in the mid and lower thoracic spine. XR/XR chest 1V portable [id number] IMPRESSION: Stable chest with no acute abnormality. Cardiomegaly.
[2023-08-29 09:09] LABS: Basophils # 0.1 10^3/uL (0.0-0.1); Basophils % 0.5 %; Eosinophils # 0.1 10^3/uL (0.0-0.8); Hematocrit 36.5 % (37-53); Lymphocytes # 1.9 10^3/uL (0.8-4.8); Lymphocytes % 20.1 %; Mean Corpuscular HGB Conc 30.4 g/dL (30-55); Mean Corpuscular Hemoglobin 26.1 pg (27-33); Mean Corpuscular Volume 85.9 fl (82-101); Mean Platelet Volume 9.2 fL (7.4-10.4); Monocytes % 10.3 %; Neutrophils # 6.36 10^3/uL (1.8-7.7); Neutrophils % 67.8 %; Nucleated Red Blood Cells % 0 %; Platelet Count 257 10^3/cmm (157-399); Red Blood Count 4.25 10^6/uL (3.85-5.65); Red Cell Distribution Width 20.8 % (12.1-15.1); White Blood Count 9.39 10^3/uL (3.29-11.43)
--- NOTE | 2023-08-29 09:09 | W.ED.SOB ---
HPI - SOB/Dyspnea General: Chief Complaint: Shortness of Breath/Dyspnea Stated Complaint: sob, filled with fluid Time Seen by Provider: 08/29/23 08:48 History of Present Illness: HPI Narrative: This patient is a 62-year-old male presenting with shortness of breath and swelling. He reports that he feels like he is full of fluid. On initial evaluation he was clammy, pale, tachypneic - although PaO2 was low 90% on RA. He improved somewhat with rest. He denied chest pain. He says that he was here for this recently, but doesn't know what was wrong or how they treated it. On review in the EHR he was admitted in May with CHF exacerbation. He had an EF of 25% in February. He was discharge on 80 mg BID lasix and he says that he has been taking that. He does have an AICD. The discharge summary says that he was to follow up with cardiology but there is no office note for a follow up visit. He also has a history of atrial fibrillation and is on rivaroxaban. He is an insulin dependent diabetic. He denies fever or productive cough. he does complain of a dry cough. He feels like his belly is full of fluid too. No vomiting. No urinary symptoms. He has leg swelling and pain. [facility] PFSH: Medical History (Updated 08/29/23 @ 12:55 by Alex Zimmer MD) Arthritis Chronic kidney disease Atrial fibrillation Anticoagulation adequate with anticoagulant therapy Dyslipidemia NAKUL (obstructive sleep apnea) CHF (congestive heart failure) Diabetes DVT (deep venous thrombosis) Cardiomyopathy Surgical History (Updated 08/29/23 @ 12:55 by Alex Zimmer MD) S/P knee replacement S/P ICD (internal cardiac defibrillator) procedure Family History Father Stroke CAD (coronary artery disease) Sister Stroke Brother Stroke Other Hypertension Social History Smoking and tobacco/nicotine status: never used tobacco/nicotine Alcohol intake: never Substance/Drug Use: never Physical Exam Const: COMMON NORMALS: patient oriented x3, no limitations and alert GENERAL APPEARANCE: cooperative, in distress, ill appearing and diaphoretic HENMT: HEAD & SCALP: normal to inspection FACE & SINUS: normal facial exam Eye: GENERAL EYE: appearance normal, both eyes and all related structures Neck/C-Spine: COMMON NORMALS: supple, no meningeal signs and no JVD Chest: COMMONS NORMALS: normal inspection of the chest Resp: EFFORT & INSPECTION: Yes tachypneic, Yes labored and Yes uses accessory muscles AUSCULTATION: diminished lung sounds bilateral Cardio: COMMON NORMALS: no JVD and No murmurs present (Cardio) RATE: tachycardic RHYTHM: abnormal rhythm with ectopic beats HEART SOUNDS: no murmurs OTHER: edema, +1 pitting GI: COMMON NORMALS: Normal to inspection, nondistended, normoactive bowel sounds present, Soft to palpation and non-tender INSPECTION: Yes normal to inspection AUSCULTATION: Yes normoactive bowel sounds PALPATION: Yes Soft to palpation Back/Pelvis: COMMON NORMALS: thoracic and lumbar spine normal to inspection Neuro: COMMON NORMALS: patient oriented x3, moves all extremities, no focal motor deficits and no sensory deficits noted SENSORIUM/ORIENTATION: Yes alert MENINGEAL SIGNS: Yes no meningeal signs Psych: COMMON NORMALS: mental status grossly normal, cooperative and normal affect Course Vital Signs: Vital signs: Vital Signs Temperature 97.8 F 08/29/23 08:48 Pulse Rate 77 08/29/23 11:00 Respiratory Rate 22 H 08/29/23 11:00 Blood Pressure 104/76 08/29/23 11:00 Pulse Oximetry 93 08/29/23 11:00 Oxygen Delivery Me thod Room Air 08/29/23 11:00 MDM - SOB/Dyspnea Medical Decision Making History of cardiomyopathy and CHF - appeared to be in acute distress on arrival. Initially I ordered furosemide - 80 mg IV based on his home dose, but his BP got down around 80 systolic and so it was help. I gave a 500 mL bolus in stead and his BP has been close or over 100 since then. HR also improved. BNP is over 5000, troponin is 67 but with a negative delta at 2 hours. He has chronic renal insufficiency with a creatinine of 2.1 today - near or at baseline. CXR with mild changes to suggest fluid overload. Difficult to manage given the low BP in the face of fluid overload. IVF did improve BP in the short term. Hospitalist consulted for admission and further management. Lab Data 08/29/23 09:04 08/29/23 09:04 Labs/Radiology: Radiology Impressions Chest X-Ray 08/29/23 08:52 IMPRESSION: Stable chest with no acute abnormality. Cardiomegaly. Laboratory Results WBC 9.39 10^3/uL (3.29-11.43) 08/29/23 09:04 RBC 4.25 10^6/uL (3.85-5.65) 08/29/23 09:04 Hgb 11.10 g/dL (11.27-16.99) L 08/29/23 09:04 Hct 36.5 % (37-53) L 08/29/23 09:04 MCV 85.9 fl (82-101) 08/29/23 09:04 MCH 26.1 pg (27-33) L 08/29/23 09:04 MCHC 30.4 g/dL (30-55) 08/29/23 09:04 RDW 20.8 % (12.1-15.1) H 08/29/23 09:04 Plt Count 257 10^3/cmm (157-399) 08/29/23 09:04 MPV 9.2 fL (7.4-10.4) 08/29/23 09:04 Neut % (Auto) 67.8 % 08/29/23 09:04 Lymph % (Auto) 20.1 % 08/29/23 09:04 [place] % (Auto) 10.3 % 08/29/23 09:04 Eos % (Auto) 1.0 % 08/29/23 09:04 Baso % (Auto) 0.5 % 08/29/23 09:04 Neut # (Auto) 6.36 10^3/uL (1.8-7.7) 08/29/23 09:04 Lymph # (Auto) 1.9 10^3/uL (0.8-4.8) 08/29/23 09:04 [place] # (Auto) 1.0 10^3/uL (0.2-0.9) H 08/29/23 09:04 Eos # (Auto) 0.1 10^3/uL (0.0-0.8) 08/29/23 09:04 Baso # (Auto) 0.1 10^3/uL (0.0-0.1) 08/29/23 09:04 Nucleated RBC % (auto) 0 % 08/29/23 09:04 Nucleated RBCs # 0.0 /100WBC 08/29/23 09:04 Sodium 135 mmol/L (136-145) L 08/29/23 09:04 Potassium 4.0 mmol/L (3.5-5.1) 08/29/23 09:04 Chloride 97 mmol/L (98-107) L 08/29/23 09:04 Carbon Dioxide 27 mmol/L (22-29) 08/29/23 09:04 Anion Gap 15.0 (5-19) 08/29/23 09:04 BUN 38 mg/dL (8-23) H 08/29/23 09:04 Creatinine 2.1 mg/dL (0.7-1.2) H 08/29/23 09:04 GFR Calculation 32.1 mL/min (90-130) L 08/29/23 09:04 Glucose 93 mg/dL (65-115) 08/29/23 09:04 POC Glucose 111 mg/dL (70-110) H 08/29/23 10:42 Calculated Osmolality 289 mOsm/kg (285-295) 08/29/23 09:04 Calcium 9.5 mg/dL (8.5-10.5) 08/29/23 09:04 Magnesium 2.2 mg/dL (1.7-2.3) 08/29/23 09:04 Total Bilirubin 0.6 mg/dL (0.15-1.2) 08/29/23 09:04 AST 17 U/L (0-40) 08/29/23 09:04 ALT 24 U/L (0-41) 08/29/23 09:04 Alkaline Phosphatase 188 U/L (40-130) H 08/29/23 09:04 Troponin T Baseline 67 ng/L (0-15) H 08/29/23 09:04 Troponin T 120 Minute 60.72 ng/L (0-15) H 08/29/23 10:43 Delta Troponin T -6.28 ABS# (0-10) L 08/29/23 10:43 NT-Pro-B Natriuret Pep 5901 pg/mL (0-125) H 08/29/23 09:04 Total Protein 7.4 g/dL (6.6-8.7) 08/29/23 09:04 Albumin 3.6 g/dL (3.5-5.2) 08/29/23 09:04 Globulin 3.8 g/dL (1.3-4.6) 08/29/23 09:04 TSH 3.62 uIU/mL (0.27-4.20) 08/29/23 09:04 Urine Color Yellow (Yellow) 08/29/23 09:22 Urine Appearance Clear (CLEAR) 08/29/23 09:22 Urine pH 5 (5-7) 08/29/23 09:22 Ur Specific [place] 1.010 (1.005-1.030) 08/29/23 09:22 Urine Protein Neg (Negative) 08/29/23 09:22 Urine Glucose (UA) 2+ (Normal) H 08/29/23 09:22 Urine Ketones Negative (Negative) 08/29/23 09:22 Urine Blood Neg (Negative) 08/29/23 09:22 Urine Nitrate Negative (Negative) 08/29/23 09:22 Urine Bilirubin Neg (Negative) 08/29/23 09:22 Urine Urobilinogen Norm mg/dL (Negative) 08/29/23 09:22 Ur Leukocyte Esterase Negative (Negative) 08/29/23 09:22 XR interpretation done by ED provider, pending radiology final review Critical Care Time Critical Care Time: Critical Care Time: Yes Total Critical Care Time: 30 Attestation: See MDM discussion for details of critical care Discharge Plan Discharge Patient Disposition: Admitted As Inpatient Admit Provider: Alex Zimmer Clinical Impression: Acute CHF (congestive heart failure), AICD (automatic cardioverter/defibrillator) present, Cardiomyopathy, Chronic renal failure Condition: Stable Coding Level of Care Code ED [employer] for Zechariah Vicente
--- NOTE | 2023-08-29 09:11 | PC.NURSE ---
Notified MD of pt BP of , said to hold lasix.
[2023-08-29 09:28] LABS: Troponin(5th) Baseline 67 ng/L (0-15)
[2023-08-29 09:37] LABS: Add Urine Microscopic? NO; Charge for UA Resulting for Rev
[2023-08-29 09:39] LABS: Bilirubin Urine Neg (Negative); Blood Urine Neg (Negative); Glucose Urine UA 2+ (Normal); Ketones Urine Negative (Negative); Leukocyte Esterase Urine Negative (Negative); Nitrate Urine Negative (Negative); Protein Urine Neg (Negative); Urine Appearance Clear (CLEAR); Urine Color Yellow (Yellow); Urobilinogen Urine Norm (Negative); pH Urine 5 (5-7)
[2023-08-29 09:49] LABS: Alanine Aminotransferase 24 U/L (0-41); Albumin Level 3.6 g/dL (3.5-5.2); Alkaline Phosphatase 188 U/L (40-130); Aspartate Amino Transferase 17 U/L (0-40); Blood Urea Nitrogen 38 mg/dL (8-23); Calcium 9.5 mg/dL (8.5-10.5); Carbon Dioxide 27 mmol/L (22-29); Chloride 97 mmol/L (98-107); Creatinine Clr Calc Pharmacy 47.9559; Globulin 3.8 g/dL (1.3-4.6); Glomerular Filtration Rate 32.1 mL/min (90-130); Glucose 93 mg/dL (65-115); Magnesium 2.2 mg/dL (1.7-2.3); NT Pro B Type Natriuretic Pept 5901 pg/mL (0-125); Osmolality Calculated 289 mOsm/kg (285-295); Sodium 135 mmol/L (136-145); Thyroid Stimulating Hormone 3.62 uIU/mL (0.27-4.20); Total Bilirubin 0.6 mg/dL (0.15-1.2); Total Protein 7.4 g/dL (6.6-8.7)
[2023-08-29] MEDS: sodium chloride 0.9% 500 ML 999 ML IV (10:20)
[2023-08-29 10:45] LABS: Glucose Point of Care 111 mg/dL (70-110)
--- NOTE | 2023-08-29 10:45 | ECG_ITS ---
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 Measurements Intervals [place] Rate: 92 P: -56 [place]: 255 QRS: 75 QRSD: 138 T: 0 QT: 394 QTc: 488 Interpretive Statements SINUS RHYTHM WITH FIRST DEGREE AV BLOCK INDETERMINATE AXIS INTRAVENTRICULAR CONDUCTION DELAY [130+ ms QRS DURATION] POSSIBLE ANTERIOR MYOCARDIAL INFARCTION , PROBABLY OLD [30 ms Q WAVE IN V3/V4, OR R < 0.2 mV IN V4] Compared to ECG 08/29/2023 08:48:47 Indeterminate axis now present Intraventricular conduction delay now present Myocardial infarct finding still present Electronically Signed On 08-29-2023 18:50:11 CDT by Santiago Walden M.D. [id number]
[2023-08-29 11:16] LABS: Troponin 5 2HR 60.72 ng/L (0-15)
[2023-08-29 11:26] LABS: Troponin 5 2HR Delta -6.28 ABS# (0-10)
[2023-08-29] MEDS: FUROsemide 10 mg/mL SDV 4mL 40 MG IVP (12:19)
--- NOTE | 2023-08-29 12:47 | P.HP_ITS ---
Providers/Chief Complaint 2 Admitting Physician: Alex Zimmer MD, hospitalist Primary Care Provider: Rochelle Rodriges MD Chief Complaint: sob, filled with fluid , swelling History of Present Illness Eliseo Reyes is a 62 year old male presenting to the hospital with widespread swelling, shortness of breath with minimal exertion, weeping legs. He has a long history of systolic heart failure. He reports occasional cough. He gets more short of breath when he lays down. He has not had any vomiting or diarrhea. No documented fevers. Last hospitalization was April where he required IV diuresis. He denies any chest discomfort currently. Angiogram in February demonstrated nonobstructive coronary disease, and an echo demonstrated an EF 25%. Review of Systems 2 General: Reports: 10 or more systems reviewed and unremarkable except in HPI and below Card: Reports: edema, swelling of feet/ankles and dyspnea on exertion; Denies: chest pain Resp: Reports: dyspnea and non-productive cough; Denies: productive cough GI: Denies: abdominal pain, nausea, hematochezia or melena Medications/Allergies Home Medications Medication Instructions Recorded Confirmed Last Taken Type allopurinol 100 mg tablet 100 mg PO DAILY 06/30/19 08/29/23 08/29/23 History citalopram 20 mg tablet 20 mg PO DAILY 06/30/19 08/29/23 08/29/23 History rivaroxaban 20 mg tablet (Xarelto) 20 mg PO DAILY 06/30/19 08/29/23 08/29/23 History terazosin 1 mg capsule 1 mg PO BEDTIME 06/30/19 08/29/23 08/28/23 History ergocalciferol (vitamin D2) 1,250 50,000 unit PO Q7D 03/02/23 08/29/23 08/27/23 History mcg (50,000 unit) capsule carvedilol 3.125 mg tablet 3.125 mg PO BID #60 tabs 03/05/23 08/29/23 08/29/23 Rx amiodarone 200 mg tablet 200 mg PO DAILY #90 tabs 03/14/23 08/29/23 08/29/23 Rx empagliflozin 25 mg tablet 25 mg PO QAM 04/29/23 08/29/23 08/29/23 History (Jardiance) insulin lispro 200 unit/mL (3 mL) 50 unit (0.25 mL) SUBCUT TIDWMEAL 04/30/23 08/29/23 08/29/23 Rx subcutaneous pen (Humalog KwikPen #6 mL U-200 Insulin) atorvastatin 80 mg tablet 80 mg PO QPM 05/07/23 08/29/23 08/28/23 History insulin glargine 100 unit/mL 25 unit SUBCUT BID 05/07/23 08/29/23 08/29/23 History subcutaneous solution (Lantus U-100 Insulin) furosemide 80 mg tablet (Lasix) 80 mg PO BID #60 tabs 06/06/23 08/29/23 08/29/23 Rx sacubitril 97 mg-valsartan 103 mg 1 tab PO BID #60 tabs 06/06/23 08/29/23 08/29/23 Rx tablet (Entresto) aspirin 81 mg tablet,delayed 81 mg PO DAILY 08/29/23 08/29/23 08/29/23 History release Allergies Allergy/AdvReac Type Severity Reaction Status Date / Time No Known Allergies Allergy Verified 08/29/23 08:53 PFSH Acute 2 PFSH: Medical History (Updated 08/29/23 @ 12:55 by Alex Zimmer MD) Arthritis Chronic kidney disease Atrial fibrillation Anticoagulation adequate with anticoagulant therapy Dyslipidemia NAKUL (obstructive sleep apnea) CHF (congestive heart failure) Diabetes DVT (deep venous thrombosis) Cardiomyopathy Surgical History (Updated 08/29/23 @ 12:55 by Alex Zimmer MD) S/P knee replacement S/P ICD (internal cardiac defibrillator) procedure Family History Father Stroke CAD (coronary artery disease) Sister Stroke Brother Stroke Other Hypertension Social History Smoking and tobacco/nicotine status: never used tobacco/nicotine Alcohol intake: never Substance/Drug Use: never Vitals/I&O/Wt Last Vital Signs Temp 97.8 F 08/29/23 08:48 Pulse 77 08/29/23 11:00 Resp 22 H 08/29/23 11:00 BP 104/76 08/29/23 11:00 Pulse Ox 93 08/29/23 11:00 O2 Del Method Room Air 08/29/23 11:00 Weight last 48 hrs Weight 122.47 kg Physical Exam 2 Narrative: General exam is a white male, with mild tachypnea, with obvious anasarca when I enter the room. Left leg is drained some clear fluid on the table. HEENT: Atraumatic normocephalic. Oropharynx clear Neck is supple no lymphadenopathy thyromegaly Cardiovascular heart sounds distant, regular, no murmur Lungs diminished breath sounds bilaterally, no crackles Abdomen distended with abdominal wall edema. Some fat necrosis from repeated insulin shots in the same areas noted. exam was deferred Extremities show 4+ edema bilaterally. Some excoriations in the lower extremities. Some clear fluid leaking from his lymphedema in the right lower extremity. Skin see findings above Neuro no focal deficits Data 08/29/23 09:04 08/29/23 09:04 Other Labs: LFTs are normal with the exception of alk phos of 188 Troponin 60 7 repeat 60 Calcium and albumin are normal Urinalysis 2+ glucose otherwise negative TSH 3.62 BNP 5900 Chest x-ray per my review cardiomegaly, cardiac device, no infiltrate EKG demonstrates sinus rhythm with first-degree AV block, intraventricular conduction delay, poor R wave progression per my read A&P Assessment and plan (1) Acute CHF (congestive heart failure): Discontinue Entresto currently as he is having some low blood pressures Diuresis with Lasix 80 mg IV every 12 hours Close follow-up of electrolytes 1000 cc fluid restriction Continue low-dose beta-candice No need to repeat echo at this time. He has such severe anasarca that he cannot ambulate adequately without getting severely short of breath. It is inappropriate to increase diuretics outpatient as he is already on a significant amount, and he has significant renal issues that require inpatient monitoring. Consider transition to Bumex or torsemide when changing to p.o. for better absorption considering his abdominal edema. Qualifiers: Heart failure type: unspecified Qualified Code(s): I50.9 - Heart failure, unspecified (2) Atrial fibrillation: Patient with history of atrial fibrillation Continue amiodarone Continue Xarelto Qualifiers: Atrial fibrillation type: paroxysmal Qualified Code(s): I48.0 - Paroxysmal atrial fibrillation (3) Chronic kidney disease: Patient with chronic kidney disease Avoid renal toxic medication Creatinine daily while diuresis is ongoing Plan Hypotension. Patient was initially hypotensive on arrival to the ER. I think this is a reflection of his low EF. However, terazosin that he is using for prostate issues may lower blood pressure as well as his Entresto. For now we will discontinue Entresto, and terazosin. Substitute Flomax for the terazosin. Type 2 diabetes. Continue his long-acting insulin. Consistent carb diet. Sliding scale insulin. Multiple other medical problems as outlined in past medical history Full code Xarelto will suffice for DVT prophylaxis Attestations 2 Medical Necessity Statement*: Will require greater than 2 midnight stay for adequate diuresis secondary to severe anasarca. Diagnoses Acute CHF (congestive heart failure) I50.9 Heart failure type: unspecified Paroxysmal atrial fibrillation I48.0 Atrial fibrillation type: paroxysmal Chronic kidney disease N18.9 Time Spent (min) 53
--- NOTE | 2023-08-29 14:52 | ECG_ITS ---
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 Measurements Intervals [place] Rate: 93 P: -56 [place]: 263 QRS: 82 QRSD: 128 T: 28 QT: 408 QTc: 510 Interpretive Statements SINUS RHYTHM WITH FIRST DEGREE AV BLOCK ANTEROLATERAL MYOCARDIAL INFARCTION , OF INDETERMINATE AGE [40+ ms Q WAVE IN I/aVL/V3-V6] Compared to ECG 08/29/2023 10:45:33 Indeterminate axis no longer present Intraventricular conduction delay no longer present Myocardial infarct finding still present Electronically Signed On 08-29-2023 18:48:05 CDT by Santiago Walden M.D. [id number]
[2023-08-29 15:33] LABS: Troponin 5 6HR 57.75 ng/L (0-15)
[2023-08-29 15:34] LABS: Troponin 5 6HR Delta -9.25 ng/L (0-12)
[2023-08-29 17:01] LABS: Glucose Point of Care 169 mg/dL (70-110)
[2023-08-29] MEDS: carvedilol 3.125 mg Tablet PO (18:01)
[2023-08-29] MEDS: insulin glargine 100 units/1 mL 25 UNIT SUBCUT (18:01)
[2023-08-29] MEDS: atorvastatin 40 mg Tablet PO (18:01)
[2023-08-29] MEDS: FUROsemide 10 mg/mL SDV 10mL 80 MG IVP (18:01)
[2023-08-29] MEDS: insulin lispro 100 unit/1 mL SUBCUT ×2 (18:02→21:22)
[2023-08-29 21:11] LABS: Glucose Point of Care 217 mg/dL (70-110)
[2023-08-29] MEDS: tamsulosin 0.4 mg Capsule PO (21:21)
[2023-08-30] VITALS (7 sets, daily range): BP systolic 106–149; BP diastolic 74–84; PULSE 74–97; RESP 16–20; TEMP 36.4–36.9; O2SAT 91–96; BMI 41.6
[2023-08-30 06:11] LABS: Basophils # 0.1 10^3/uL (0.0-0.1); Basophils % 0.6 %; Eosinophils # 0.1 10^3/uL (0.0-0.8); Eosinophils % 1.3 %; Hematocrit 35.8 % (37-53); Lymphocytes # 2.3 10^3/uL (0.8-4.8); Lymphocytes % 26.4 %; Mean Corpuscular HGB Conc 29.9 g/dL (30-55); Mean Corpuscular Hemoglobin 25.8 pg (27-33); Mean Corpuscular Volume 86.3 fl (82-101); Mean Platelet Volume 9.6 fL (7.4-10.4); Monocytes # 0.8 10^3/uL (0.2-0.9); Monocytes % 9.8 %; Neutrophils % 61.7 %; Nucleated Red Blood Cells % 0 %; Platelet Count 267 10^3/cmm (157-399); Red Blood Count 4.15 10^6/uL (3.85-5.65); Red Cell Distribution Width 20.7 % (12.1-15.1); White Blood Count 8.59 10^3/uL (3.29-11.43)
[2023-08-30 06:30] LABS: Glucose Point of Care 135 mg/dL (70-110)
[2023-08-30 06:36] LABS: Alanine Aminotransferase 22 U/L (0-41); Albumin Level 3.7 g/dL (3.5-5.2); Alkaline Phosphatase 156 U/L (40-130); Anion Gap 13.7 (5-19); Aspartate Amino Transferase 15 U/L (0-40); Blood Urea Nitrogen 38 mg/dL (8-23); Calcium 9.4 mg/dL (8.5-10.5); Carbon Dioxide 30 mmol/L (22-29); Chloride 100 mmol/L (98-107); Creatinine Clr Calc Pharmacy 50.5892; Globulin 3.4 g/dL (1.3-4.6); Glomerular Filtration Rate 32.1 mL/min (90-130); Glucose 138 mg/dL (65-115); Magnesium 2.3 mg/dL (1.7-2.3); Osmolality Calculated 299 mOsm/kg (285-295); Potassium 4.7 mmol/L (3.5-5.1); Sodium 139 mmol/L (136-145); Total Bilirubin 0.7 mg/dL (0.15-1.2); Total Protein 7.1 g/dL (6.6-8.7)
[2023-08-30] MEDS: FUROsemide 10 mg/mL SDV 10mL 80 MG IVP ×2 (06:49→18:03)
[2023-08-30] MEDS: amiodarone 200 mg Tablet PO (09:00)
[2023-08-30] MEDS: aspirin 81 mg EC Tablet PO (09:00)
[2023-08-30] MEDS: insulin glargine 100 units/1 mL 25 UNIT SUBCUT ×2 (09:00→18:02)
[2023-08-30] MEDS: citalopram 20 mg Tablet PO (09:00)
[2023-08-30] MEDS: rivaroxaban 10 mg Tablet 20 MG PO (09:00)
[2023-08-30] MEDS: carvedilol 3.125 mg Tablet PO ×2 (09:00→18:02)
[2023-08-30] MEDS: allopurinol 100 mg Tablet PO (09:00)
[2023-08-30 09:31] LABS: NT Pro B Type Natriuretic Pept 5678 pg/mL (0-125)
[2023-08-30 11:07] LABS: Glucose Point of Care 214 mg/dL (70-110)
[2023-08-30] MEDS: insulin lispro 100 unit/1 mL SUBCUT ×3 (12:15→21:57)
--- NOTE | 2023-08-30 13:53 | P.PN_ITS ---
Subjective 2 Subjective: Patient was seen this morning, continues to complain of lower extremity edema, anasarca, abdominal distention, no fevers, no chills, no cough Vitals/I&O/Wt Last Vital Signs Temp 98.2 F 08/30/23 11:56 Pulse 97 08/30/23 11:56 Resp 16 08/30/23 11:56 BP 106/78 08/30/23 11:56 Pulse Ox 96 08/30/23 11:56 O2 Del Method Room Air 08/30/23 11:56 08/29/23 08/30/23 08/30/23 22:59 06:59 14:59 Intake Total 360 / 860 436 / 436 Output Total 650 / 650 1050 / 1700 975 / 975 Balance -290 / 210 -1050 / -840 -539 / -539 Weight last 48 hrs Weight 135.397 kg Weight 136.758 kg Weight 122.47 kg Physical Exam 2 Const: COMMON NORMALS: no acute distress and patient oriented x3 Resp: COMMON NORMALS: normal respiratory effort, No retractions, No use of accessory muscles and clear to auscultation bilaterally AUSCULTATION: clear to auscultation bilaterally Cardio: COMMON NORMALS: regular rate, regular rhythm, S1 normal heart sound present and S2 normal heart sound present RATE: regular rate RHYTHM: r egular rhythm HEART SOUNDS: S1 normal heart sound present and S2 normal heart sound present GI: COMMON NORMALS: Normal to inspection, nondistended, normoactive bowel sounds present and non-tender Extremity: NARRATIVE EXTREMITY EXAM: 2+ pitting edema, generalized anasarca Neuro: COMMON NORMALS: patient oriented x3 Psych: COMMON NORMALS: mental status grossly normal Data 08/30/23 05:44 08/30/23 05:44 A&P Assessment and plan (1) Acute CHF (congestive heart failure): Entresto currently on hold as patient has soft blood pressures Diuresis with Lasix 80 mg IV every 12 hours Patient is -1.3 L so far Close follow-up of electrolytes 1000 cc fluid restriction Continue low-dose beta-candice Qualifiers: Heart failure type: unspecified Qualified Code(s): I50.9 - Heart failure, unspecified (2) Atrial fibrillation: Patient with history of atrial fibrillation Continue amiodarone Continue Xarelto Qualifiers: Atrial fibrillation type: paroxysmal Qualified Code(s): I48.0 - Paroxysmal atrial fibrillation (3) Chronic kidney disease: Patient with chronic kidney disease Avoid renal toxic medication Creatinine daily while diuresis is ongoing Plan Hypotension. Patient was initially hypotensive on arrival to the ER. I think this is a reflection of his low EF. However, terazosin that he is using for prostate issues may lower blood pressure as well as his Entresto. For now we will discontinue Entresto, and terazosin. Substitute Flomax for the terazosin. Type 2 diabetes. Continue his long-acting insulin. Consistent carb diet. Sliding scale insulin. Multiple other medical problems as outlined in past medical history Full code Xarelto will suffice for DVT prophylaxis Plan for today monitor creatinine monitor potassium monitor urine output, Attestations 2 Medical Necessity Statement*: Patient requires hospitalization, for CHF exacerbation, requiring IV diuresis, monitoring electrolyte management Diagnoses Acute CHF (congestive heart failure) I50.9 Heart failure type: unspecified Paroxysmal atrial fibrillation I48.0 Atrial fibrillation type: paroxysmal Chronic kidney disease N18.9
[2023-08-30 17:02] LABS: Glucose Point of Care 234 mg/dL (70-110)
[2023-08-30] MEDS: atorvastatin 40 mg Tablet PO (18:02)
[2023-08-30] MEDS: tamsulosin 0.4 mg Capsule PO (21:41)
[2023-08-30 22:07] LABS: Glucose Point of Care 264 mg/dL (70-110)
[2023-08-30 22:11] LABS: Glucose Point of Care 261 mg/dL (70-110)
[2023-08-31] VITALS (8 sets, daily range): BP systolic 106–127; BP diastolic 76–83; PULSE 80–95; RESP 14–18; TEMP 36.6–36.9; O2SAT 93–98
[2023-08-31 03:37] LABS: Basophils # 0.1 10^3/uL (0.0-0.1); Basophils % 0.8 %; Eosinophils # 0.1 10^3/uL (0.0-0.8); Eosinophils % 1.3 %; Hematocrit 35.5 % (37-53); Lymphocytes # 2.1 10^3/uL (0.8-4.8); Lymphocytes % 24.6 %; Mean Corpuscular HGB Conc 29.9 g/dL (30-55); Mean Corpuscular Volume 87.2 fl (82-101); Mean Platelet Volume 9.2 fL (7.4-10.4); Monocytes % 11.6 %; Neutrophils # 5.24 10^3/uL (1.8-7.7); Neutrophils % 61.3 %; Nucleated Red Blood Cells % 0 %; Platelet Count 272 10^3/cmm (157-399); Red Blood Count 4.07 10^6/uL (3.85-5.65); Red Cell Distribution Width 20.9 % (12.1-15.1); White Blood Count 8.54 10^3/uL (3.29-11.43)
[2023-08-31 03:56] LABS: Magnesium 2.3 mg/dL (1.7-2.3)
[2023-08-31 04:03] LABS: Anion Gap 14.2 (5-19); Blood Urea Nitrogen 41 mg/dL (8-23); Calcium 9.5 mg/dL (8.5-10.5); Carbon Dioxide 30 mmol/L (22-29); Chloride 100 mmol/L (98-107); Creatinine Clr Calc Pharmacy 50.5892; Glomerular Filtration Rate 32.1 mL/min (90-130); Glucose 97 mg/dL (65-115); NT Pro B Type Natriuretic Pept 6663 pg/mL (0-125); Osmolality Calculated 300 mOsm/kg (285-295); Potassium 4.2 mmol/L (3.5-5.1); Sodium 140 mmol/L (136-145)
[2023-08-31 06:34] LABS: Glucose Point of Care 90 mg/dL (70-110)
[2023-08-31] MEDS: FUROsemide 10 mg/mL SDV 10mL 80 MG IVP ×2 (06:45→18:23)
[2023-08-31] MEDS: aspirin 81 mg EC Tablet PO (09:28)
[2023-08-31] MEDS: insulin glargine 100 units/1 mL 25 UNIT SUBCUT ×2 (09:28→18:09)
[2023-08-31] MEDS: carvedilol 3.125 mg Tablet PO ×2 (09:29→18:10)
[2023-08-31] MEDS: rivaroxaban 10 mg Tablet 20 MG PO (09:29)
[2023-08-31] MEDS: amiodarone 200 mg Tablet PO (09:29)
[2023-08-31] MEDS: metOLazone 5 MG Tablet PO (09:29)
[2023-08-31] MEDS: allopurinol 100 mg Tablet PO (09:29)
[2023-08-31] MEDS: citalopram 20 mg Tablet PO (09:29)
[2023-08-31 11:13] LABS: Glucose Point of Care 166 mg/dL (70-110)
[2023-08-31] MEDS: insulin lispro 100 unit/1 mL SUBCUT ×3 (12:05→21:35)
--- NOTE | 2023-08-31 13:47 | P.PN_ITS ---
Subjective 2 Subjective: Patient was seen this morning, he reports continued edema, no shortness of breath at rest, no chest pain Vitals/I&O/Wt Last Vital Signs Temp 98.4 F 08/31/23 10:57 Pulse 95 08/31/23 10:57 Resp 17 08/31/23 10:57 BP 127/76 08/31/23 10:57 Pulse Ox 94 08/31/23 10:57 O2 Del Method Room Air 08/31/23 10:57 O2 Flow Rate 2 08/31/23 00:00 08/30/23 08/31/23 08/31/23 22:59 06:59 14:59 Intake Total 118 / 554 480 / 1034 660 / 660 Output Total 250 / 1225 1500 / 2725 400 / 400 Balance -132 / -671 -1020 / -1691 260 / 260 Weight last 48 hrs Weight 135.397 kg Weight 136.758 kg Physical Exam 2 Const: COMMON NORMALS: no acute distress and patient oriented x3 Resp: COMMON NORMALS: normal respiratory effort, No retractions, No use of accessory muscles and clear to auscultation bilaterally AUSCULTATION: clear to auscultation bilaterally Cardio: COMMON NORMALS: regular rate, regular rhythm, S1 normal heart sound present and S2 normal heart sound present RATE: regular rate RHYTHM: r egular rhythm HEART SOUNDS: S1 normal heart sound present and S2 normal heart sound present GI: COMMON NORMALS: Normal to inspection, nondistended, normoactive bowel sounds present and non-tender Extremity: NARRATIVE EXTREMITY EXAM: 1+ pitting edema, generalized anasarca, Neuro: COMMON NORMALS: patient oriented x3 Psych: COMMON NORMALS: mental status grossly normal Data 08/31/23 03:18 08/31/23 03:18 A&P Assessment and plan (1) Acute CHF (congestive heart failure): Entresto currently on hold as patient has soft blood pressures Diuresis with Lasix 80 mg IV every 12 hours Patient is -2.2 L so far Close follow-up of electrolytes 1000 cc fluid restriction Continue low-dose beta-candice Qualifiers: Heart failure type: unspecified Qualified Code(s): I50.9 - Heart failure, unspecified (2) Atrial fibrillation: Patient with history of atrial fibrillation Continue amiodarone Continue Xarelto Qualifiers: Atrial fibrillation type: paroxysmal Qualified Code(s): I48.0 - Paroxysmal atrial fibrillation (3) Chronic kidney disease: Patient with chronic kidney disease Avoid renal toxic medication Creatinine daily while diuresis is ongoing Plan Hypotension. Patient was initially hypotensive on arrival to the ER. I think this is a reflection of his low EF. However, terazosin that he is using for prostate issues may lower blood pressure as well as his Entresto. For now we will discontinue Entresto, and terazosin. Substitute Flomax for the terazosin. Type 2 diabetes. Continue his long-acting insulin. Consistent carb diet. Sliding scale insulin. Multiple other medical problems as outlined in past medical history Full code Xarelto will suffice for DVT prophylaxis Plan for today monitor creatinine monitor potassium monitor urine output, continue IV Lasix add on 1 dose of metolazone Attestations 2 Medical Necessity Statement*: Patient requires hospitalization for fluid overload, requiring IV diuresis, Diagnoses Acute CHF (congestive heart failure) I50.9 Heart failure type: unspecified Paroxysmal atrial fibrillation I48.0 Atrial fibrillation type: paroxysmal Chronic kidney disease N18.9
[2023-08-31 16:41] LABS: Glucose Point of Care 268 mg/dL (70-110)
[2023-08-31] MEDS: atorvastatin 40 mg Tablet PO (18:10)
[2023-08-31 20:52] LABS: Glucose Point of Care 323 mg/dL (70-110)
[2023-08-31] MEDS: tamsulosin 0.4 mg Capsule PO (21:36)
[2023-09-01] VITALS (9 sets, daily range): BP systolic 112–137; BP diastolic 69–99; PULSE 82–93; RESP 16–18; TEMP 36.3–36.8; O2SAT 92–96
[2023-09-01 05:26] LABS: Basophils # 0.1 10^3/uL (0.0-0.1); Basophils % 0.8 %; Eosinophils # 0.1 10^3/uL (0.0-0.8); Eosinophils % 1.4 %; Hematocrit 35.6 % (37-53); Lymphocytes % 23.3 %; Mean Corpuscular HGB Conc 29.8 g/dL (30-55); Mean Corpuscular Hemoglobin 25.7 pg (27-33); Mean Corpuscular Volume 86.2 fl (82-101); Mean Platelet Volume 9.6 fL (7.4-10.4); Monocytes # 0.9 10^3/uL (0.2-0.9); Monocytes % 9.9 %; Neutrophils # 5.57 10^3/uL (1.8-7.7); Neutrophils % 64.1 %; Nucleated Red Blood Cells % 0 %; Platelet Count 269 10^3/cmm (157-399); Red Blood Count 4.13 10^6/uL (3.85-5.65); Red Cell Distribution Width 20.8 % (12.1-15.1); White Blood Count 8.68 10^3/uL (3.29-11.43)
[2023-09-01 05:47] LABS: Magnesium 2.4 mg/dL (1.7-2.3)
[2023-09-01 05:50] LABS: Anion Gap 13.9 (5-19); Blood Urea Nitrogen 45 mg/dL (8-23); Calcium 9.5 mg/dL (8.5-10.5); Carbon Dioxide 30 mmol/L (22-29); Chloride 96 mmol/L (98-107); Glomerular Filtration Rate 32.1 mL/min (90-130); Glucose 117 mg/dL (65-115); NT Pro B Type Natriuretic Pept 6748 pg/mL (0-125); Osmolality Calculated 295 mOsm/kg (285-295); Potassium 3.9 mmol/L (3.5-5.1); Sodium 136 mmol/L (136-145)
[2023-09-01 05:51] LABS: Creatinine Clr Calc Pharmacy 50.0349
[2023-09-01] MEDS: FUROsemide 10 mg/mL SDV 10mL 80 MG IVP ×2 (06:32→18:38)
[2023-09-01 06:39] LABS: Glucose Point of Care 128 mg/dL (70-110)
[2023-09-01] MEDS: aspirin 81 mg EC Tablet PO (08:43)
[2023-09-01] MEDS: rivaroxaban 10 mg Tablet 20 MG PO (08:43)
[2023-09-01] MEDS: allopurinol 100 mg Tablet PO (08:43)
[2023-09-01] MEDS: carvedilol 3.125 mg Tablet PO ×2 (08:43→17:20)
[2023-09-01] MEDS: citalopram 20 mg Tablet PO (08:43)
[2023-09-01] MEDS: amiodarone 200 mg Tablet PO (08:43)
[2023-09-01] MEDS: insulin glargine 100 units/1 mL 25 UNIT SUBCUT ×2 (08:44→17:21)
--- NOTE | 2023-09-01 09:26 | PC.CHAP ---
Pastoral Care Encounter/Spiritual Assessment Type of Contact [] Declined emission technician visit [] Patient/Family/Request visit [] Outpatient visit [] Follow-up visit [] Physician referral [] Code/Alert [x] Routine visit [] Staff referral [] Actively dying [] Patient sleeping [] Family support [] [] Out of room [] Palliative care [] [x] Receiving care in room [] Pre-surgical visit [] Trauma [] Long length of stay [] ICU visit [] Other: Relational/Emotional Strength [] Patient feels connected with others/family/visitors/staff [] Distress [] Loneliness/isolation [] Abandonment Spirituality of Patient [] Person of Yashira [] Attends Jainism of their Yashira [] Believes in Prayer [] Reads Bible or Faith materials [] There are Spiritual issues to be addressed Manager [employer] Interventions [x] Prayer [] Active listening [] Non-anxious presence [] Spiritual/emotional support [] Crisis/trauma care [] Spiritual counseling [] Bereavement support [] Provided bereavement packet [] Provided Bible/devotional materials [] Provided toy/stuffed animal, coloring book to patient or family member [] Provided Communion [] Anointing/[place] [] Salvation [] Completed spiritual assessment [] Other: Impact on Illness or Injury [] Angry [] Fearful [] Anxious [] Often cries [] Exhaustion [] Unable to work [] Unable to attend advent [] Unable to walk/stand [] Unable to read [] Unable to drive [] Unable to eat/drink [] Unable to sleep [] Unable to be with family [] Patient intubated [] Other: Summary Time spent with patient
[2023-09-01 11:27] LABS: Glucose Point of Care 237 mg/dL (70-110)
[2023-09-01] MEDS: insulin lispro 100 unit/1 mL SUBCUT ×3 (11:39→21:41)
[2023-09-01] MEDS: metOLazone 5 MG Tablet PO (11:40)
--- NOTE | 2023-09-01 13:36 | P.PN_ITS ---
Subjective 2 Subjective: Patient was seen this morning, his shortness of breath is improving, edema is improving, no fevers, no chills, no cough Vitals/I&O/Wt Last Vital Signs Temp 97.3 F L 09/01/23 11:11 Pulse 87 09/01/23 11:11 Resp 16 09/01/23 11:11 BP 137/79 09/01/23 11:11 Pulse Ox 93 09/01/23 11:11 O2 Del Method Room Air 09/01/23 11:11 O2 Flow Rate 2 09/01/23 04:00 08/31/23 09/01/23 09/01/23 22:59 06:59 14:59 Intake Total 480 / 1140 240 / 240 Output Total 1275 / 2455 275 / 2730 1250 / 1250 Balance -795 / -1315 -275 / -1590 -1010 / -1010 Weight last 48 hrs Weight 132.676 kg Physical Exam 2 Const: COMMON NORMALS: no acute distress and patient oriented x3 Resp: COMMON NORMALS: normal respiratory effort, No retractions, No use of accessory muscles and clear to auscultation bilaterally AUSCULTATION: clear to auscultation bilaterally Cardio: COMMON NORMALS: regular rate, regular rhythm, S1 normal heart sound present and S2 normal heart sound present RATE: regular rate RHYTHM: r egular rhythm HEART SOUNDS: S1 normal heart sound present and S2 normal heart sound present GI: COMMON NORMALS: Normal to inspection, nondistended, normoactive bowel sounds present and non-tender Extremity: NARRATIVE EXTREMITY EXAM: 1+ edema Neuro: COMMON NORMALS: patient oriented x3 Psych: COMMON NORMALS: mental status grossly normal Data 09/01/23 05:02 09/01/23 05:02 A&P Assessment and plan (1) Acute CHF (congestive heart failure): Entresto currently on hold as patient has soft blood pressures Diuresis with Lasix 80 mg IV every 12 hours Patient is -5 L so far Close follow-up of electrolytes 1000 cc fluid restriction Continue low-dose beta-candice Qualifiers: Heart failure type: unspecified Qualified Code(s): I50.9 - Heart failure, unspecified (2) Atrial fibrillation: Patient with history of atrial fibrillation Continue amiodarone Continue Xarelto Qualifiers: Atrial fibrillation type: paroxysmal Qualified Code(s): I48.0 - Paroxysmal atrial fibrillation (3) Chronic kidney disease: Patient with chronic kidney disease Avoid renal toxic medication Creatinine daily while diuresis is ongoing Plan Hypotension. Patient was initially hypotensive on arrival to the ER. I think this is a reflection of his low EF. However, terazosin that he is using for prostate issues may lower blood pressure as well as his Entresto. For now we will discontinue Entresto, and terazosin. Substitute Flomax for the terazosin. Type 2 diabetes. Continue his long-acting insulin. Consistent carb diet. Sliding scale insulin. Multiple other medical problems as outlined in past medical history Full code Xarelto will suffice for DVT prophylaxis Plan for today monitor creatinine monitor potassium monitor urine output, continue IV Lasix add on 1 dose of metolazone Attestations 2 Medical Necessity Statement*: Patient requires hospitalization for CHF exacerbation requiring IV diuresis Diagnoses Acute CHF (congestive heart failure) I50.9 Heart failure type: unspecified Paroxysmal atrial fibrillation I48.0 Atrial fibrillation type: paroxysmal Chronic kidney disease N18.9
--- NOTE | 2023-09-01 15:21 | PC.SOCIAL ---
IMM Update pg 2 of IMM updated and reviewed w/ patient. Copy provided and copy dated, initialed and placed in chart.
[2023-09-01 16:35] LABS: Glucose Point of Care 278 mg/dL (70-110)
[2023-09-01] MEDS: atorvastatin 40 mg Tablet PO (17:21)
[2023-09-01 20:18] LABS: Glucose Point of Care 272 mg/dL (70-110)
[2023-09-01] MEDS: tamsulosin 0.4 mg Capsule PO (21:41)
[2023-09-02] VITALS (7 sets, daily range): BP systolic 108–152; BP diastolic 69–87; PULSE 79–94; RESP 17–30; TEMP 36.6–36.9; O2SAT 90–98
[2023-09-02 06:22] LABS: Glucose Point of Care 140 mg/dL (70-110)
[2023-09-02 07:05] LABS: Basophils # 0.1 10^3/uL (0.0-0.1); Basophils % 0.6 %; Eosinophils # 0.1 10^3/uL (0.0-0.8); Eosinophils % 1.4 %; Hematocrit 35.9 % (37-53); Lymphocytes # 1.9 10^3/uL (0.8-4.8); Lymphocytes % 22.8 %; Mean Corpuscular HGB Conc 30.1 g/dL (30-55); Mean Corpuscular Hemoglobin 25.8 pg (27-33); Mean Corpuscular Volume 85.9 fl (82-101); Mean Platelet Volume 9.7 fL (7.4-10.4); Monocytes # 0.8 10^3/uL (0.2-0.9); Neutrophils # 5.48 10^3/uL (1.8-7.7); Nucleated Red Blood Cells % 0 %; Platelet Count 273 10^3/cmm (157-399); Red Blood Count 4.18 10^6/uL (3.85-5.65); Red Cell Distribution Width 20.6 % (12.1-15.1); White Blood Count 8.43 10^3/uL (3.29-11.43)
[2023-09-02 07:28] LABS: Magnesium 2.2 mg/dL (1.7-2.3)
[2023-09-02 07:39] LABS: Anion Gap 16.6 (5-19); Blood Urea Nitrogen 52 mg/dL (8-23); Calcium 9.6 mg/dL (8.5-10.5); Carbon Dioxide 30 mmol/L (22-29); Chloride 92 mmol/L (98-107); Creatinine Clr Calc Pharmacy 47.3284; Glomerular Filtration Rate 30.4 mL/min (90-130); Glucose 113 mg/dL (65-115); NT Pro B Type Natriuretic Pept 7355 pg/mL (0-125); Osmolality Calculated 295 mOsm/kg (285-295); Potassium 3.6 mmol/L (3.5-5.1); Sodium 135 mmol/L (136-145)
[2023-09-02] MEDS: rivaroxaban 10 mg Tablet 20 MG PO (08:39)
[2023-09-02] MEDS: carvedilol 3.125 mg Tablet PO ×2 (08:40→17:53)
[2023-09-02] MEDS: citalopram 20 mg Tablet PO (08:40)
[2023-09-02] MEDS: aspirin 81 mg EC Tablet PO (08:40)
[2023-09-02] MEDS: insulin glargine 100 units/1 mL 25 UNIT SUBCUT ×2 (08:40→18:34)
[2023-09-02] MEDS: amiodarone 200 mg Tablet PO (08:40)
[2023-09-02] MEDS: allopurinol 100 mg Tablet PO (08:40)
--- NOTE | 2023-09-02 09:35 | PC.CHAP ---
Pastoral Care Encounter/Spiritual Assessment Type of Contact [] Declined ginner visit [] Patient/Family/Request visit [] Outpatient visit [] Follow-up visit [] Physician referral [] Code/Alert [] Routine visit [] Staff referral [] Actively dying [] Patient sleeping [] Family support [] [] Out of room [] Palliative care [] [x] Receiving care in room [] Pre-surgical visit [] Trauma [] Long length of stay [] ICU visit [] Other: Relational/Emotional Strength [] Patient feels connected with others/family/visitors/staff [] Distress [] Loneliness/isolation [] Abandonment Spirituality of Patient [] Person of Yashira [] Attends Adventist of their Yashira [] Believes in Prayer [] Reads Bible or Jewish materials [] There are Spiritual issues to be addressed [employer] Interventions [] Prayer [] Active listening [] Non-anxious presence [] Spiritual/emotional support [] Crisis/trauma care [] Spiritual counseling [] Bereavement support [] Provided bereavement packet [] Provided Bible/devotional materials [] Provided toy/stuffed animal, coloring book to patient or family member [] Provided Communion [] Anointing/[place] [] Salvation [] Completed spiritual assessment [] Other: Impact on Illness or Injury [] Angry [] Fearful [] Anxious [] Often cries [] Exhaustion [] Unable to work [] Unable to attend caodaism [] Unable to walk/stand [] Unable to read [] Unable to drive [] Unable to eat/drink [] Unable to sleep [] Unable to be with family [] Patient intubated [] Other: Summary Time spent with patient
[2023-09-02] MEDS: metOLazone 5 MG Tablet PO (10:26)
[2023-09-02] MEDS: potassium chloride ER 20 mEq Tablet PO (10:26)
[2023-09-02] MEDS: FUROsemide 10 mg/mL SDV 10mL 80 MG IVP (10:27)
[2023-09-02 11:06] LABS: Glucose Point of Care 252 mg/dL (70-110)
[2023-09-02] MEDS: insulin lispro 100 unit/1 mL SUBCUT ×3 (12:09→21:06)
--- NOTE | 2023-09-02 13:28 | P.PN_ITS ---
Subjective 2 Subjective: Patient was seen this morning he does tell me his edema is improving, no fevers, no chills, no cough we discussed his creatinine being up to 2.2 will give him 1 dose of Lasix and then give his kidneys a break for the next 24 hours, recheck kidney function tomorrow he is agreeable Vitals/I&O/Wt Last Vital Signs Temp 98.1 F 09/02/23 10:45 Pulse 81 09/02/23 10:45 Resp 17 09/02/23 10:45 BP 152/75 09/02/23 10:45 Pulse Ox 93 09/02/23 10:45 O2 Del Method Room Air 09/02/23 10:45 O2 Flow Rate 2 09/01/23 04:00 09/01/23 09/02/23 09/02/23 22:59 06:59 14:59 Intake Total 320 / 560 720 / 1280 676 / 676 Output Total 600 / 1850 1425 / 3275 900 / 900 Balance -280 / -1290 -705 / -1994 -224 / 224 Weight last 48 hrs Weight 130.453 kg Weight 132.676 kg Physical Exam 2 Const: COMMON NORMALS: no acute distress and patient oriented x3 Resp: COMMON NORMALS: normal respiratory effort, No retractions, No use of accessory muscles and clear to auscultation bilaterally AUSCULTATION: clear to auscultation bilaterally Cardio: COMMON NORMALS: regular rate, regular rhythm, S1 normal heart sound present and S2 normal heart sound present RATE: regular rate RHYTHM: r egular rhythm HEART SOUNDS: S1 normal heart sound present and S2 normal heart sound present GI: COMMON NORMALS: Normal to inspection, nondistended, normoactive bowel sounds present and non-tender Extremity: NARRATIVE EXTREMITY EXAM: 1+ edema Neuro: COMMON NORMALS: patient oriented x3 Psych: COMMON NORMALS: mental status grossly normal Data 09/02/23 06:04 09/02/23 06:04 A&P Assessment and plan (1) Acute CHF (congestive heart failure): Entresto currently on hold as patient has soft blood pressures 1 dose IV Lasix 80 mg with metolazone, his creatinine is up to 2.2 Patient is -6L so far Close follow-up of electrolytes 1000 cc fluid restriction Continue low-dose beta-candice Qualifiers: Heart failure type: unspecified Qualified Code(s): I50.9 - Heart failure, unspecified (2) Atrial fibrillation: Patient with history of atrial fibrillation Continue amiodarone Continue Xarelto Qualifiers: Atrial fibrillation type: paroxysmal Qualified Code(s): I48.0 - Paroxysmal atrial fibrillation (3) Chronic kidney disease: Patient with chronic kidney disease Avoid renal toxic medication Creatinine daily while diuresis is ongoing Plan Hypotension. Patient was initially hypotensive on arrival to the ER. I think this is a reflection of his low EF. However, terazosin that he is using for prostate issues may lower blood pressure as well as his Entresto. For now we will discontinue Entresto, and terazosin. Substitute Flomax for the terazosin. Type 2 diabetes. Continue his long-acting insulin. Consistent carb diet. Sliding scale insulin. Multiple other medical problems as outlined in past medical history Full code Xarelto will suffice for DVT prophylaxis Plan for today 1 dose Lasix, monitor creatinine, monitor potassium Attestations 2 Medical Necessity Statement*: Patient requires hospitalization for fluid overload, edema, DAYANNA Diagnoses Acute CHF (congestive heart failure) I50.9 Heart failure type: unspecified Paroxysmal atrial fibrillation I48.0 Atrial fibrillation type: paroxysmal Chronic kidney disease N18.9
[2023-09-02 16:29] LABS: Glucose Point of Care 325 mg/dL (70-110)
[2023-09-02] MEDS: atorvastatin 40 mg Tablet PO (17:53)
[2023-09-02 20:39] LABS: Glucose Point of Care 316 mg/dL (70-110)
[2023-09-02] MEDS: tamsulosin 0.4 mg Capsule PO (21:06)
[2023-09-03] VITALS (9 sets, daily range): BP systolic 98–119; BP diastolic 71–87; PULSE 75–94; RESP 17–24; TEMP 36.6–37; O2SAT 90–96
[2023-09-03 03:57] LABS: Basophils # 0.1 10^3/uL (0.0-0.1); Basophils % 0.6 %; Eosinophils # 0.1 10^3/uL (0.0-0.8); Eosinophils % 1.7 %; Hematocrit 34.6 % (37-53); Lymphocytes # 1.8 10^3/uL (0.8-4.8); Lymphocytes % 22.1 %; Mean Corpuscular HGB Conc 30.3 g/dL (30-55); Mean Corpuscular Volume 85.6 fl (82-101); Mean Platelet Volume 9.8 fL (7.4-10.4); Monocytes # 0.8 10^3/uL (0.2-0.9); Monocytes % 10.2 %; Neutrophils # 5.24 10^3/uL (1.8-7.7); Nucleated Red Blood Cells % 0 %; Platelet Count 265 10^3/cmm (157-399); Red Blood Count 4.04 10^6/uL (3.85-5.65); Red Cell Distribution Width 20.6 % (12.1-15.1); White Blood Count 8.06 10^3/uL (3.29-11.43)
[2023-09-03 04:30] LABS: Blood Urea Nitrogen 61 mg/dL (8-23); Calcium 9.5 mg/dL (8.5-10.5); Carbon Dioxide 32 mmol/L (22-29); Chloride 93 mmol/L (98-107); Creatinine Clr Calc Pharmacy 47.3284; Glomerular Filtration Rate 30.4 mL/min (90-130); Glucose 171 mg/dL (65-115); Osmolality Calculated 305 mOsm/kg (285-295); Sodium 137 mmol/L (136-145)
[2023-09-03 04:34] LABS: NT Pro B Type Natriuretic Pept 6468 pg/mL (0-125)
[2023-09-03 06:28] LABS: Glucose Point of Care 172 mg/dL (70-110)
[2023-09-03] MEDS: aspirin 81 mg EC Tablet PO (08:50)
[2023-09-03] MEDS: rivaroxaban 10 mg Tablet 20 MG PO (08:50)
[2023-09-03] MEDS: amiodarone 200 mg Tablet PO (08:50)
[2023-09-03] MEDS: carvedilol 3.125 mg Tablet PO ×2 (08:50→18:50)
[2023-09-03] MEDS: citalopram 20 mg Tablet PO (08:50)
[2023-09-03] MEDS: allopurinol 100 mg Tablet PO (08:51)
[2023-09-03] MEDS: insulin glargine 100 units/1 mL 25 UNIT SUBCUT ×2 (08:51→18:50)
[2023-09-03] MEDS: insulin lispro 100 unit/1 mL SUBCUT ×4 (08:51→21:29)
[2023-09-03 11:47] LABS: Glucose Point of Care 406 mg/dL (70-110)
--- NOTE | 2023-09-03 11:50 | PC.SOCIAL ---
IMM Updated Updated pt on IMM. No questions voiced. Provided pt a copy. Initialed, dated, & timed copy in chart.
[2023-09-03 14:37] LABS: Glucose Point of Care 355 mg/dL (70-110)
[2023-09-03 14:37] LABS: Glucose Point of Care 436 mg/dL (70-110)
[2023-09-03 16:07] LABS: Glucose Point of Care 329 mg/dL (70-110)
[2023-09-03 16:23] LABS: Blood Urea Nitrogen 60 mg/dL (8-23); Calcium 9.7 mg/dL (8.5-10.5); Carbon Dioxide 30 mmol/L (22-29); Chloride 91 mmol/L (98-107); Creatinine Clr Calc Pharmacy 47.3461; Glomerular Filtration Rate 30.4 mL/min (90-130); Glucose 299 mg/dL (65-115); Osmolality Calculated 304 mOsm/kg (285-295); Sodium 133 mmol/L (136-145)
--- NOTE | 2023-09-03 17:36 | P.PN_ITS ---
Subjective 2 Subjective: Patient was seen this morning, his edema is improving, no chest pain, no significant shortness of breath creatinine is up to 2.2, Vitals/I&O/Wt Last Vital Signs Temp 97.8 F 09/03/23 16:00 Pulse 89 09/03/23 16:00 Resp 24 H 09/03/23 16:00 BP 109/74 09/03/23 16:00 Pulse Ox 96 09/03/23 16:00 O2 Del Method Room Air 09/03/23 16:00 O2 Flow Rate 2 09/03/23 04:00 09/03/23 09/03/23 09/03/23 06:59 14:59 22:59 Intake Total 480 / 1378 356 / 356 Output Total 250 / 2475 500 / 500 600 / 1100 Balance 230 / -1097 -144 / -144 -600 / -744 Weight last 48 hrs Weight 130.544 kg Weight 130.453 kg Physical Exam 2 Const: COMMON NORMALS: no acute distress and patient oriented x3 Resp: COMMON NORMALS: normal respiratory effort, No retractions, No use of accessory muscles and clear to auscultation bilaterally AUSCULTATION: clear to auscultation bilaterally Cardio: COMMON NORMALS: regular rate, regular rhythm, S1 normal heart sound present and S2 normal heart sound present RATE: regular rate RHYTHM: r egular rhythm HEART SOUNDS: S1 normal heart sound present and S2 normal heart sound present GI: COMMON NORMALS: Normal to inspection, nondistended, normoactive bowel sounds present and non-tender Extremity: NARRATIVE EXTREMITY EXAM: 1+ edema Neuro: COMMON NORMALS: patient oriented x3 Psych: COMMON NORMALS: mental status grossly normal Data 09/03/23 03:13 09/03/23 15:23 A&P Assessment and plan (1) Acute CHF (congestive heart failure): Entresto currently on hold as patient has soft blood pressures , his creatinine is up to 2.2, hold Lasix, recheck BMP in the afternoon Patient is -6L so far Close follow-up of electrolytes 1000 cc fluid restriction Continue low-dose beta-candice Qualifiers: Heart failure type: unspecified Qualified Code(s): I50.9 - Heart failure, unspecified (2) Atrial fibrillation: Patient with history of atrial fibrillation Continue amiodarone Continue Xarelto Qualifiers: Atrial fibrillation type: paroxysmal Qualified Code(s): I48.0 - Paroxysmal atrial fibrillation (3) Chronic kidney disease: Patient with chronic kidney disease Avoid renal toxic medication Creatinine daily while diuresis is ongoing Plan Hypotension. Patient was initially hypotensive on arrival to the ER. I think this is a reflection of his low EF. However, terazosin that he is using for prostate issues may lower blood pressure as well as his Entresto. For now we will discontinue Entresto, and terazosin. Substitute Flomax for the terazosin. Type 2 diabetes. Continue his long-acting insulin. Consistent carb diet. Sliding scale insulin. Multiple other medical problems as outlined in past medical history Full code Xarelto will suffice for DVT prophylaxis Plan for hold Lasix, recheck BMP in the afternoon Attestations 2 Medical Necessity Statement*: Patient requires hospitalization for DAYANNA, CHF Diagnoses Acute CHF (congestive heart failure) I50.9 Heart failure type: unspecified Paroxysmal atrial fibrillation I48.0 Atrial fibrillation type: paroxysmal Chronic kidney disease N18.9
[2023-09-03] MEDS: atorvastatin 40 mg Tablet PO (18:50)
[2023-09-03 20:32] LABS: Glucose Point of Care 313 mg/dL (70-110)
[2023-09-03] MEDS: tamsulosin 0.4 mg Capsule PO (21:30)
[2023-09-04 04:00] VITALS: BP 100/71; PULSE 93; RESP 21; TEMP 36.9; O2SAT 93
[2023-09-04 04:55] LABS: Basophils # 0.1 10^3/uL (0.0-0.1); Basophils % 0.6 %; Eosinophils # 0.1 10^3/uL (0.0-0.8); Eosinophils % 0.9 %; Hematocrit 38.6 % (37-53); Lymphocytes # 1.4 10^3/uL (0.8-4.8); Lymphocytes % 14.4 %; Mean Corpuscular Hemoglobin 26.2 pg (27-33); Mean Corpuscular Volume 93.5 fl (82-101); Mean Platelet Volume 9.6 fL (7.4-10.4); Monocytes # 0.8 10^3/uL (0.2-0.9); Monocytes % 8.8 %; Neutrophils # 7.14 10^3/uL (1.8-7.7); Nucleated Red Blood Cells % 0 %; Platelet Count 262 10^3/cmm (157-399); Red Blood Count 4.13 10^6/uL (3.85-5.65); Red Cell Distribution Width 21.1 % (12.1-15.1); White Blood Count 9.53 10^3/uL (3.29-11.43)
[2023-09-04 05:31] LABS: Anion Gap 15.3 (5-19); Blood Urea Nitrogen 66 mg/dL (8-23); Calcium 9.8 mg/dL (8.5-10.5); Carbon Dioxide 29 mmol/L (22-29); Chloride 96 mmol/L (98-107); Creatinine Clr Calc Pharmacy 45.4731; Glomerular Filtration Rate 28.9 mL/min (90-130); Glucose 192 mg/dL (65-115); NT Pro B Type Natriuretic Pept 6545 pg/mL (0-125); Osmolality Calculated 306 mOsm/kg (285-295); Potassium 4.3 mmol/L (3.5-5.1); Sodium 136 mmol/L (136-145)
[2023-09-04 06:00] VITALS: PULSE 89
[2023-09-04 06:39] LABS: Glucose Point of Care 187 mg/dL (70-110)
[2023-09-04 07:11] VITALS: BP 135/73; PULSE 87; RESP 22; TEMP 36.7; O2SAT 93
[2023-09-04] MEDS: rivaroxaban 10 mg Tablet 20 MG PO (08:39)
[2023-09-04] MEDS: allopurinol 100 mg Tablet PO (08:40)
[2023-09-04] MEDS: aspirin 81 mg EC Tablet PO (08:40)
[2023-09-04] MEDS: insulin lispro 100 unit/1 mL SUBCUT (08:40)
[2023-09-04] MEDS: insulin glargine 100 units/1 mL 25 UNIT SUBCUT (08:40)
[2023-09-04] MEDS: citalopram 20 mg Tablet PO (08:40)
[2023-09-04] MEDS: carvedilol 3.125 mg Tablet PO (08:40)
[2023-09-04] MEDS: amiodarone 200 mg Tablet PO (08:40)
--- NOTE | 2023-09-04 10:37 | P.DS_ITS ---
Discharge Providers Date of Admission: 08/29/23 13:50 Date of Discharge: September 04, 2023 Attending Provider at Admission: Alex Zimmer MD Attending Provider at Discharge: Marco Rust MD Primary Care Provider: Rochelle Rodriges MD Diagnoses at Discharge Discharge Diagnosis (1) Acute CHF (congestive heart failure): Status: Acute Qualifiers: Heart failure type: unspecified Qualified Code(s): I50.9 - Heart failure, unspecified (2) Atrial fibrillation: Status: Acute Qualifiers: Atrial fibrillation type: paroxysmal Qualified Code(s): I48.0 - Paroxysmal atrial fibrillation (3) Chronic kidney disease: Status: Chronic Reason for Visit Reason for Visit: sob, filled with fluid , swelling Hospital Course Hospital Course Eliseo Reyes is a 62 year old male presenting to the hospital with widespread swelling, shortness of breath with minimal exertion, weeping legs. He has a long history of systolic heart failure. He reports occasional cough. He gets more short of breath when he lays down. He has not had any vomiting or diarrhea. No documented fevers. Last hospitalization was April where he required IV diuresis. He denies any chest discomfort currently. Angiogram in February demonstrated nonobstructive coronary disease, and an echo demonstrated an EF 25%. Patient was admitted to [facility] for acute CHF exacerbation, received inpatient diuresis, diuresed over 6 L, overall clinically improved, swelling and symptomatology have improved, creatinine on discharge 2.3, Lasix has been held for 48 hours. Continue to hold until tomorrow, resume Lasix 80 mg twice daily, with Dr. Muoñz rechecking the creatinine on 09/05/2023. Patient has chronic renal failure, with creatinine increasing over the last 6 months, it seems as if his baseline now is anywhere between 1.5-2.3, with more than likely now his baseline creatinine being 2. Nonetheless, I have made him a referral to follow-up with nephrology, as his baseline GFR is at 30. Patient was advised if he has has any worsening chest pain or palpitations to go to the emergency room. He was also found to have a rash on bilateral lower extremities, erythematous, discharged on doxycycline. Physical Exam Const: COMMON NORMALS: no acute distress and patient oriented x3 Resp: COMMON NORMALS: normal respiratory effort, No retractions, No use of accessory muscles and clear to auscultation bilaterally AUSCULTATION: clear to auscultation bilaterally Cardio: COMMON NORMALS: regular rate, regular rhythm, S1 normal heart sound present and S2 normal heart sound present RATE: regular rate RHYTHM: regular rhythm HEART SOUNDS: S1 normal heart sound present and S2 normal heart sound present GI: COMMON NORMALS: Normal to inspection, nondistended, normoactive bowel sounds present and non-tender Extremity: COMMON NORMALS: no pedal edema Neuro: COMMON NORMALS: patient oriented x3 Psych: COMMON NORMALS: mental status grossly normal Discharge Data Studies Completed and Pending Completed Studies During Hospitalization Category Date Time Status XR chest 1V portable [id number] Stat Exams 08/29/23 08:52 Completed Pending at discharge Category Date Time Status Basic Metabolic Panel AM LABS Lab 09/05/23 04:00 Ordered Complete Blood Count w/Auto AM LABS Lab 09/05/23 04:00 Ordered NT Pro B Type Natriuretic Pept QAM Lab 09/05/23 06:00 Ordered Radiology Impressions Chest X-Ray 08/29/23 08:52 IMPRESSION: Stable chest with no acute abnormality. Cardiomegaly. Laboratory Results WBC 9.53 10^3/uL (3.29-11.43) 09/04/23 04:26 RBC 4.13 10^6/uL (3.85-5.65) 09/04/23 04:26 Hgb 10.80 g/dL (11.27-16.99) L 09/04/23 04:26 Hct 38.6 % (37-53) 09/04/23 04:26 MCV 93.5 fl (82-101) 09/04/23 04:26 MCH 26.2 pg (27-33) L 09/04/23 04:26 MCHC 28.0 g/dL (30-55) L D 09/04/23 04:26 RDW 21.1 % (12.1-15.1) H 09/04/23 04:26 Plt Count 262 10^3/cmm (157-399) 09/04/23 04:26 MPV 9.6 fL (7.4-10.4) 09/04/23 04:26 Neut % (Auto) 75.0 % 09/04/23 04:26 Lymph % (Auto) 14.4 % 09/04/23 04:26 [place] % (Auto) 8.8 % 09/04/23 04:26 Eos % (Auto) 0.9 % 09/04/23 04:26 Baso % (Auto) 0.6 % 09/04/23 04:26 Neut # (Auto) 7.14 10^3/uL (1.8-7.7) 09/04/23 04:26 Lymph # (Auto) 1.4 10^3/uL (0.8-4.8) 09/04/23 04:26 Dickinson # (Auto) 0.8 10^3/uL (0.2-0.9) 09/04/23 04:26 Eos # (Auto) 0.1 10^3/uL (0.0-0.8) 09/04/23 04:26 Baso # (Auto) 0.1 10^3/uL (0.0-0.1) 09/04/23 04:26 Nucleated RBC % (auto) 0 % 09/04/23 04:26 Nucleated RBCs # 0.0 /100WBC 09/04/23 04:26 Sodium 136 mmol/L (136-145) 09/04/23 04:26 Potassium 4.3 mmol/L (3.5-5.1) 09/04/23 04:26 Chloride 96 mmol/L (98-107) L 09/04/23 04:26 Carbon Dioxide 29 mmol/L (22-29) 09/04/23 04:26 Anion Gap 15.3 (5-19) 09/04/23 04:26 BUN 66 mg/dL (8-23) H 09/04/23 04:26 Creatinine 2.3 mg/dL (0.7-1.2) H 09/04/23 04:26 GFR Calculation 28.9 mL/min (90-130) L 09/04/23 04:26 Glucose 192 mg/dL (65-115) H 09/04/23 04:26 POC Glucose 187 mg/dL (70-110) H 09/04/23 06:20 Calculated Osmolality 306 mOsm/kg (285-295) H 09/04/23 04:26 Calcium 9.8 mg/dL (8.5-10.5) 09/04/23 04:26 Magnesium 2.2 mg/dL (1.7-2.3) 09/02/23 06:04 Total Bilirubin 0.7 mg/dL (0.15-1.2) 08/30/23 05:44 AST 15 U/L (0-40) 08/30/23 05:44 ALT 22 U/L (0-41) 08/30/23 05:44 Alkaline Phosphatase 156 U/L (40-130) H 08/30/23 05:44 Troponin T Baseline 67 ng/L (0-15) H 08/29/23 09:04 Troponin T 120 Minute 60.72 ng/L (0-15) H 08/29/23 10:43 Delta Troponin T -6.28 ABS# (0-10) L 08/29/23 10:43 Troponin T Hi Sens 6Hr 57.75 ng/L (0-15) H 08/29/23 15:10 Troponin T Hi Sens 6Hr Delta -9.25 ng/L (0-12) L 08/29/23 15:10 NT-Pro-B Natriuret Pep 6545 pg/mL (0-125) H 09/04/23 04:26 Total Protein 7.1 g/dL (6.6-8.7) 08/30/23 05:44 Albumin 3.7 g/dL (3.5-5.2) 08/30/23 05:44 Globulin 3.4 g/dL (1.3-4.6) 08/30/23 05:44 TSH 3.62 uIU/mL (0.27-4.20) 08/29/23 09:04 Urine Color Yellow (Yellow) 08/29/23 09:22 Urine Appearance Clear (CLEAR) 08/29/23 09:22 Urine pH 5 (5-7) 08/29/23 09:22 Ur Specific [place] 1.010 (1.005-1.030) 08/29/23 09:22 Urine Protein Neg (Negative) 08/29/23 09:22 Urine Glucose (UA) 2+ (Normal) H 08/29/23 09:22 Urine Ketones Negative (Negative) 08/29/23 09:22 Urine Blood Neg (Negative) 08/29/23 09:22 Urine Nitrate Negative (Negative) 08/29/23 09:22 Urine Bilirubin Neg (Negative) 08/29/23 09:22 Urine Urobilinogen Norm mg/dL (Negative) 08/29/23 09:22 Ur Leukocyte Esterase Negative (Negative) 08/29/23 09:22 Vitals Last Vital Signs Temp 98.0 F 09/04/23 07:11 Pulse 87 09/04/23 07:11 Resp 22 H 09/04/23 07:11 BP 135/73 09/04/23 07:11 Pulse Ox 93 09/04/23 07:11 O2 Del Method Room Air 09/04/23 07:11 O2 Flow Rate 2 09/03/23 04:00 Discharge Plan Discharge Patient Disposition: Home Condition: Stable Prescriptions: New doxycycline hyclate 100 mg tablet 100 mg PO BID 7 Days Qty: 14 0RF Continued citalopram 20 mg tablet 20 mg PO DAILY allopurinol 100 mg tablet 100 mg PO DAILY Xarelto 20 mg tablet 20 mg PO DAILY terazosin 1 mg capsule 1 mg PO BEDTIME amiodarone 200 mg tablet 200 mg PO DAILY Qty: 90 1RF atorvastatin 80 mg tablet 80 mg PO QPM insulin glargine [Lantus U-100 Insulin] 100 unit/mL solution 25 unit SUBCUT BID Aspir-81 81 mg Tablet,Delayed Release (Dr/Ec) 81 mg PO DAILY ergocalciferol (vitamin D2) 1,250 mcg (50,000 unit) capsule 50,000 unit PO Q7D Rx Instructions: on Friday carvedilol 3.125 mg Tablet 3.125 mg PO BID Qty: 60 0RF Jardiance 25 mg Tablet 25 mg PO QAM Entresto 97-103 mg tablet 1 tab PO BID Qty: 60 0RF Changed Humalog KwikPen Insulin 200 unit/mL (3 mL) Insulin Pen See Rx Instructions .ROUTE .COMPLEX Qty: 6 0RF Rx Instructions: inject, subcut, 3 times daily, after meals, based on sliding scale provided Held furosemide [Lasix] 80 mg tablet 80 mg PO BID Qty: 60 0RF Hold Instructions: Resume on 09/05/23. Discharge Orders: Discharge Order (Routine); Ordered 09/04/23 Ordered By: Marco Rust Referrals: Rochelle Rodriges MD [Primary Care Provider] - 1-3 days (needs appointment 09/05/2023, recheck kidney) Charlie Vergara MD [Referring] - 1-3 days (Dr. Vergara phone # is [phone] and the Fax # is [phone]. ) Discharge Diet: Cardiac Discharge Activity: Resume usual activity Patient Instructions: Heart Failure (DC), CHF Stoplight, Opioid Safety Activity Restrictions/Additional Instructions: - Please hold Lasix until tomorrow, resume tomorrow ? Please have Dr. Gutierrez recheck your kidney function tomorrow, creatinine on discharge is 2.3 ? If you have any worsening shortness of breath please go to the emergency room ? Please monitor your blood sugars closely ? Please follow-up with nephrology Discharge Attestations Time Spent in Discharge Care*: greater than 30 min Quality Metrics Clinical Quality Measures [ No reported AMI, CVA or VTE this stay] Coding Level of Care Code 14923 Total time (in minutes) for Discharge: 45 Diagnoses Acute CHF (congestive heart failure) I50.9 Heart failure type: unspecified Paroxysmal atrial fibrillation I48.0 Atrial fibrillation type: paroxysmal Chronic kidney disease N18.9
--- NOTE | 2023-09-04 11:44 | PC.NURSE ---
Discharge Note Patient discharged to home via POV accompanied by spouse. Discharge instructions reviewed with patient and/or inventory representative. Mobile pharmacy medications and/or prescriptions provided. Belongings/home medications returned.
[2023-09-04 11:45] VITALS: BP 135/73; PULSE 87; RESP 22; TEMP 36.7; O2SAT 93
== END 2023-09-04 11:46 | disposition home or self-care (01) | DRG 292 ==
LOC: ER 12:08 → MEDSURG 13:50 → ER IP 13:53 → MEDSURG 15:07 → CSU 09-02 14:21
PROVIDERS: Admitting Provider Internal Medicine; Emergency Provider Emergency Medicine; PCP Internal Medicine; Visit Provider Family Medicine
DX: I50.23 Acute on chronic systolic (congestive) heart failure (principal); I42.9 Cardiomyopathy, unspecified; I48.20 Chronic atrial fibrillation, unspecified; I95.9 Hypotension, unspecified; N18.9 Chronic kidney disease, unspecified; E11.22 Type 2 diabetes mellitus with diabetic chronic kidney disease; Z79.4 Long term (current) use of insulin; Z95.810 Presence of automatic (implantable) cardiac defibrillator; Z79.01 Long term (current) use of anticoagulants; Z79.82 Long term (current) use of aspirin; E78.5 Hyperlipidemia, unspecified
CPT/HCPCS: 36415; 36416; 71045; 80048; 80053; 81003; 82962; 83735; 83880; 84443; 84484; 85025; 93005; 96372; 96374; 99285; J1815; J1940; J7040

== ENCOUNTER 2023-09-17 14:32 | Inpatient (IN) | payer MEDICARE, MEDICAID, SELFPAY ==
--- NOTE | 2023-09-17 14:35 | XR_ITS ---
WS: [id number] XR chest 1V portable [id number] REASON FOR EXAM: sob FINDINGS: Cardiac device over the left chest with right subclavian lead to the right ventricular apex region. Moderate cardiomegaly. Moderate tortuosity thoracic aorta. Compared to the examination of 08/29/2023 there is reticular interstitial and groundglass opacities in the right lower lung. These findings are most compatible with congestive heart failure however an acu te/subacute pneumonitis could also have this appearance. No other interval change compared to the previous examination. XR/XR chest 1V portable [id number] IMPRESSION: No abnormality in the right lower lung field as above.
[2023-09-17 14:46] VITALS: BP 112/80; PULSE 95; RESP 24; TEMP 36.9; O2SAT 94
--- NOTE | 2023-09-17 14:50 | ECG_ITS ---
[facility] Test Date: 2023-09-17 Pat Name: Eliseo Reyes Department: Room: Gender: Male Box Loader: : 1960 Requested By: Chaz Main Order Number: [id number] Alek MD: Santiago Walden M.D. Measurements Intervals [place] Rate: 91 P: 0 NH: 0 QRS: 109 QRSD: 134 T: 0 QT: 435 QTc: 538 Interpretive Statements ATRIAL FIBRILLATION RIGHT AXIS DEVIATION [QRS AXIS > 100] INTRAVENTRICULAR CONDUCTION DELAY [130+ ms QRS DURATION] POSSIBLE ANTERIOR MYOCARDIAL INFARCTION , OF INDETERMINATE AGE [30 ms Q WAVE IN V3/V4, OR R < 0.2 mV IN V4] Compared to ECG 08/29/2023 14:49:23 Right-axis deviation now present Intraventricular conduction delay now present Sinus rhythm no longer present First degree AV block no longer present Myocardial infarct finding still present Electronically Signed On 09-17-2023 15:55:44 CDT by Santiago Walden M.D. [email or web address]
--- NOTE | 2023-09-17 15:59 | ED_ITS ---
HPI - SOB/Dyspnea 2 General: Chief Complaint: Shortness of Breath/Dyspnea Stated Complaint: SOB Time Seen by Provider: 09/17/23 15:48 Source: patient Mode of arrival: ambulatory History of Present Illness: HPI Narrative: 62-year-old male has a history of CHF he states that he is feeling he had increased swelling along with shortness of breath the last 2 days states he has been taking his Lasix as prescribed he states his dyspnea is much worse with exertion denies any fever denies any chest pain. Associated symptoms: Deny abdominal pain, chest pain, fever(s), nausea or vomiting Review of Systems 2 Const: Denies: fever(s), chills, body aches or change in appetite ENMT: Denies: throat pain or dental pain Card: Denies: chest pain Resp: Reports: dyspnea GI: Denies: abdominal pain, nausea, vomiting or diarrhea Musc: Denies: neck pain or back pain Skin/Breast: Denies: rash Neuro: Denies: headache(s) PFSH ED 2 PFSH: Medical History Arthritis Chronic kidney disease Atrial fibrillation Anticoagulation adequate with anticoagulant therapy Dyslipidemia NAKUL (obstructive sleep apnea) CHF (congestive heart failure) Diabetes DVT (deep venous thrombosis) Cardiomyopathy Surgical History S/P knee replacement S/P ICD (internal cardiac defibrillator) procedure Family History Father Stroke CAD (coronary artery disease) Sister Stroke Brother Stroke Other Hypertension Social History Smoking and tobacco/nicotine status: never used tobacco/nicotine Alcohol intake: never Substance/Drug Use: never Physical Exam 2 Const: COMMON NORMALS: patient oriented x3 HENMT: COMMON NORMALS: normocephalic and atraumatic HEAD & SCALP: n ormocephalic and atraumatic Eye: COMMON NORMALS: Equal, round and reactive pupils present and EOMs intact bilaterally PUPIL: Yes Equal, round and reactive pupils present Neck/C-Spine: COMMON NORMALS: full ROM and supple Chest: COMMONS NORMALS: normal inspection of the chest Resp: COMMON NORMALS: No retractions AUSCULTATION: rales Cardio: COMMON NORMALS: regular rate and No murmurs present (Cardio) RATE: regular rate RHYTHM: abnormal rhythm irregularly irregular Extremity: COMMON NORMALS: full ROM NARRATIVE EXTREMITY EXAM: 2+ edema Neuro: COMMON NORMALS: patient oriented x3, moves all extremities and no focal motor deficits Psych: COMMON NORMALS: mental status grossly normal, Normal thought process present and cooperative THOUGHT PROCESS: Normal thought process present Skin: COMMON NORMALS: no rashes or lesions noted and no wounds GENERAL SKIN EXAM: no rashes or lesions noted Course 2 Vital Signs: Vital signs: Vital Signs Temperature 98.4 F 09/17/23 14:46 Pulse Rate 95 09/17/23 16:50 Respiratory Rate 24 H 09/17/23 14:46 Blood Pressure 112/80 09/17/23 14:46 Pulse Oximetry 99 09/17/23 16:50 Oxygen Delivery Me thod Room Air 09/17/23 16:50 MDM - SOB/Dyspnea Medical Decision Making I had him patient presents for shortness of breath x-ray does show pulm edema versus pneumonia he is having exertional dyspnea with hypoxia we will start him on antibiotics along with Lasix and admit at this time. Medical Records I reviewed the patient's medical records. Lab Data I reviewed the patient's lab results. 09/17/23 16:15 09/17/23 16:15 Labs/Radiology: Radiology Impressions Chest X-Ray 09/17/23 14:35 IMPRESSION: No abnormality in the right lower lung field as above. Laboratory Results WBC 12.49 10^3/uL (3.29-11.43) H 09/17/23 16:15 RBC 4.42 10^6/uL (3.85-5.65) 09/17/23 16:15 Hgb 11.40 g/dL (11.27-16.99) 09/17/23 16:15 Hct 37.6 % (37-53) 09/17/23 16:15 MCV 85.1 fl (82-101) 09/17/23 16:15 MCH 25.8 pg (27-33) L 09/17/23 16:15 MCHC 30.3 g/dL (30-55) 09/17/23 16:15 RDW 20.5 % (12.1-15.1) H 09/17/23 16:15 Plt Count 387 10^3/cmm (157-399) 09/17/23 16:15 MPV 9.6 fL (7.4-10.4) 09/17/23 16:15 Neut % (Auto) 76.3 % 09/17/23 16:15 Lymph % (Auto) 15.3 % 09/17/23 16:15 [place] % (Auto) 7.1 % 09/17/23 16:15 Eos % (Auto) 0.2 % 09/17/23 16:15 Baso % (Auto) 0.3 % 09/17/23 16:15 Neut # (Auto) 9.52 10^3/uL (1.8-7.7) H 09/17/23 16:15 Lymph # (Auto) 1.9 10^3/uL (0.8-4.8) 09/17/23 16:15 [place] # (Auto) 0.9 10^3/uL (0.2-0.9) 09/17/23 16:15 Eos # (Auto) 0.0 10^3/uL (0.0-0.8) 09/17/23 16:15 Baso # (Auto) 0.0 10^3/uL (0.0-0.1) 09/17/23 16:15 Nucleated RBC % (auto) 0 % 09/17/23 16:15 Nucleated RBCs # 0.0 /100WBC 09/17/23 16:15 PT 29.20 SECONDS (12.1-14.9) H 09/17/23 16:15 INR 2.64 (0.8-1.2) H 09/17/23 16:15 Sodium 136 mmol/L (136-145) 09/17/23 16:15 Potassium 4.1 mmol/L (3.5-5.1) 09/17/23 16:15 Chloride 96 mmol/L (98-107) L 09/17/23 16:15 Carbon Dioxide 27 mmol/L (22-29) 09/17/23 16:15 Anion Gap 17.1 (5-19) 09/17/23 16:15 BUN 47 mg/dL (8-23) H 09/17/23 16:15 Creatinine 2.2 mg/dL (0.7-1.2) H 09/17/23 16:15 GFR Calculation 30.4 mL/min (90-130) L 09/17/23 16:15 Glucose 241 mg/dL (65-115) H 09/17/23 16:15 Calculated Osmolality 302 mOsm/kg (285-295) H 09/17/23 16:15 Calcium 9.1 mg/dL (8.5-10.5) 09/17/23 16:15 Total Bilirubin 0.7 mg/dL (0.15-1.2) 09/17/23 16:15 AST 25 U/L (0-40) 09/17/23 16:15 ALT 30 U/L (0-41) 09/17/23 16:15 Alkaline Phosphatase 210 U/L (40-130) H 09/17/23 16:15 NT-Pro-B Natriuret Pep 5911 pg/mL (0-125) H 09/17/23 16:15 Total Protein 7.2 g/dL (6.6-8.7) 09/17/23 16:15 Albumin 3.3 g/dL (3.5-5.2) L 09/17/23 16:15 Globulin 3.9 g/dL (1.3-4.6) 09/17/23 16:15 SARS-CoV-2 Ag (Rapid) negative (Negative) 09/17/23 16:36 All radiology interpretation(s) finalized by discharge EKG Data EKG 1: I personally reviewed and interpreted this EKG as follows: EKG Interpretation Date: 09/17/23 EKG interpretation time: 14:50 Interpretation: afib hr [address] elevation qrs 134 qtc 484 Discharge Plan Discharge Patient Disposition: Admitted As Inpatient Clinical Impression: CHF exacerbation Condition: Stable Prescriptions: No Action citalopram 20 mg tablet 20 mg PO DAILY allopurinol 100 mg tablet 100 mg PO DAILY Xarelto 20 mg tablet 20 mg PO DAILY terazosin 1 mg capsule 1 mg PO BEDTIME amiodarone 200 mg tablet 200 mg PO DAILY Qty: 90 1RF atorvastatin 80 mg tablet 80 mg PO QPM insulin glargine [Lantus U-100 Insulin] 100 unit/mL solution 25 unit SUBCUT BID aspirin 81 mg Tablet,Delayed Release (Dr/Ec) 81 mg PO DAILY Humalog KwikPen Insulin 200 unit/mL (3 mL) Insulin Pen See Rx Instructions .ROUTE .COMPLEX Qty: 6 0RF Rx Instructions: inject, subcut, 3 times daily, after meals, based on sliding scale provided ergocalciferol (vitamin D2) 1,250 mcg (50,000 unit) capsule 50,000 unit PO Q7D Rx Instructions: on Friday carvedilol 3.125 mg Tablet 3.125 mg PO BID Qty: 60 0RF Jardiance 25 mg Tablet 25 mg PO QAM Entresto 97-103 mg tablet 1 tab PO BID Qty: 60 0RF furosemide [Lasix] 80 mg tablet 80 mg PO BID Qty: 60 0RF Hold Instructions: Resume on 09/05/23. Referrals: Rochelle Rodriges MD [Primary Care Provider] - Coding Level of Care Code ED Nursing Informatics Clinical Analyst for Zechariah Vicente
[2023-09-17] MEDS: FUROsemide 10 mg/mL SDV 10mL 60 MG IVP (16:29)
[2023-09-17 16:36] LABS: Basophils % 0.3 %; Eosinophils % 0.2 %; Hematocrit 37.6 % (37-53); Lymphocytes # 1.9 10^3/uL (0.8-4.8); Lymphocytes % 15.3 %; Mean Corpuscular HGB Conc 30.3 g/dL (30-55); Mean Corpuscular Hemoglobin 25.8 pg (27-33); Mean Corpuscular Volume 85.1 fl (82-101); Mean Platelet Volume 9.6 fL (7.4-10.4); Monocytes # 0.9 10^3/uL (0.2-0.9); Monocytes % 7.1 %; Neutrophils # 9.52 10^3/uL (1.8-7.7); Neutrophils % 76.3 %; Nucleated Red Blood Cells % 0 %; Platelet Count 387 10^3/cmm (157-399); Red Blood Count 4.42 10^6/uL (3.85-5.65); Red Cell Distribution Width 20.5 % (12.1-15.1); White Blood Count 12.49 10^3/uL (3.29-11.43)
[2023-09-17 16:50] VITALS: PULSE 95; O2SAT 99
[2023-09-17 16:58] LABS: INR 2.64 (0.8-1.2)
[2023-09-17 16:58] LABS: SARS Covid-2 Antigen negative (Negative)
[2023-09-17 17:15] LABS: Alanine Aminotransferase 30 U/L (0-41); Albumin Level 3.3 g/dL (3.5-5.2); Alkaline Phosphatase 210 U/L (40-130); Anion Gap 17.1 (5-19); Aspartate Amino Transferase 25 U/L (0-40); Blood Urea Nitrogen 47 mg/dL (8-23); Calcium 9.1 mg/dL (8.5-10.5); Carbon Dioxide 27 mmol/L (22-29); Chloride 96 mmol/L (98-107); Globulin 3.9 g/dL (1.3-4.6); Glomerular Filtration Rate 30.4 mL/min (90-130); Glucose 241 mg/dL (65-115); NT Pro B Type Natriuretic Pept 5911 pg/mL (0-125); Osmolality Calculated 302 mOsm/kg (285-295); Potassium 4.1 mmol/L (3.5-5.1); Sodium 136 mmol/L (136-145); Total Bilirubin 0.7 mg/dL (0.15-1.2); Total Protein 7.2 g/dL (6.6-8.7)
[2023-09-17 17:29] LABS: Creatinine Clr Calc Pharmacy 46.8345
[2023-09-17] MEDS: cefTRIAXone 1,000 mg SDV 1000 MG IVP (18:20)
[2023-09-17] MEDS: azithromycin 500 MG in sodium chloride 0.9% 250 ML 250 MG IV (18:20)
[2023-09-17 18:21] VITALS: BP 136/99; PULSE 89; RESP 17; O2SAT 95
--- NOTE | 2023-09-17 19:59 | P.HP_ITS ---
Providers/Chief Complaint 2 Admitting Physician: Attila Soto MD Primary Care Provider: Rochelle Rodriges MD Chief Complaint: SOB History of Present Illness Eliseo Reyes is a 62 year old male with history of nonobstructive coronary disease, status post AICD and pacemaker for EF of 35% presented with worsening of shortness of breath and weight gain. Patient stating that he has been taking 220 mg of Lasix which has stopped working. He does not watch his fluid or sodium intake, he eats what ever is on sale at the grocery store. Lives with his , does not smoke. Has been compliant with his medications. Has stopped taking Entresto has not followed up with the desizing pad operator yet for chronic kidney disease. No active chest pain, endorsing white sputum production. Only uses 2 L of oxygen at nighttime. Patient is stating that he can only take 5-10 steps without getting short of breath. In the ER he was diagnosed with right-sided pneumonia and CHF exacerbation, No sign of sepsis Review of Systems 2 Const: Denies: fever(s) Eyes: Denies: change in vision ENMT: Denies: throat pain Card: Reports: swelling of feet/ankles; Denies: chest pain Resp: Reports: dyspnea Medications/Allergies Home Medications Medication Instructions Recorded Confirmed Last Taken Type allopurinol 100 mg tablet 100 mg PO DAILY 06/30/19 08/29/23 08/29/23 History citalopram 20 mg tablet 20 mg PO DAILY 06/30/19 08/29/23 08/29/23 History rivaroxaban 20 mg tablet (Xarelto) 20 mg PO DAILY 06/30/19 08/29/23 08/29/23 History terazosin 1 mg capsule 1 mg PO BEDTIME 06/30/19 08/29/23 08/28/23 History ergocalciferol (vitamin D2) 1,250 50,000 unit PO Q7D 03/02/23 08/29/23 08/27/23 History mcg (50,000 unit) capsule carvedilol 3.125 mg tablet 3.125 mg PO BID #60 tabs 03/05/23 08/29/23 08/29/23 Rx amiodarone 200 mg tablet 200 mg PO DAILY #90 tabs 03/14/23 08/29/23 08/29/23 Rx empagliflozin 25 mg tablet 25 mg PO QAM 04/29/23 08/29/23 08/29/23 History (Jardiance) atorvastatin 80 mg tablet 80 mg PO QPM 05/07/23 08/29/23 08/28/23 History insulin glargine 100 unit/mL 25 unit SUBCUT BID 05/07/23 08/29/23 08/29/23 History subcutaneous solution (Lantus U-100 Insulin) furosemide 80 mg tablet (Lasix) 80 mg PO BID #60 tabs 06/06/23 08/29/23 08/29/23 Rx sacubitril 97 mg-valsartan 103 mg 1 tab PO BID #60 tabs 06/06/23 08/29/23 08/29/23 Rx tablet (Entresto) aspirin 81 mg tablet,delayed 81 mg PO DAILY 08/29/23 08/29/23 08/29/23 History release insulin lispro 200 unit/mL (3 mL) See Rx Instructions .Route 09/04/23 08/29/23 08/29/23 Rx subcutaneous pen (Humalog KwikPen .COMPLEX #6 mL U-200 Insulin) Allergies Allergy/AdvReac Type Severity Reaction Status Date / Time No Known Allergies Allergy Verified 08/29/23 08:53 PFSH Acute 2 PFSH: Medical History Arthritis Chronic kidney disease Atrial fibrillation Anticoagulation adequate with anticoagulant therapy Dyslipidemia NAKUL (obstructive sleep apnea) CHF (congestive heart failure) Diabetes DVT (deep venous thrombosis) Cardiomyopathy Surgical History S/P knee replacement S/P ICD (internal cardiac defibrillator) procedure Family History Father Stroke CAD (coronary artery disease) Sister Stroke Brother Stroke Other Hypertension Social History Smoking and tobacco/nicotine status: never used tobacco/nicotine Alcohol intake: never Substance/Drug Use: never Vitals/I&O/Wt Last Vital Signs Temp 98.4 F 09/17/23 14:46 Pulse 89 09/17/23 18:21 Resp 17 09/17/23 18:21 BP 136/99 09/17/23 18:21 Pulse Ox 95 09/17/23 18:21 O2 Del Method Room Air 09/17/23 18:21 Weight last 48 hrs Weight 127.913 kg Physical Exam 2 Narrative: Signs of fluid overload present 3+ edema of lower extremities Pleasant and cooperative Hemodynamic stable Currently on room air Distended abdomen Nonfocal neuroexam Hemodynamic stable Bilateral breath sounds with mild rhonchi I do not appreciate significant crackles Data 09/17/23 16:15 09/17/23 16:15 Micro: Microbiology 09/17/23 18:07 Blood Culture - Preliminary Blood SPECIMEN COLLECTED 09/17/23 18:02 Blood Culture - Preliminary Blood SPECIMEN COLLECTED A&P Assessment and plan (1) CHF (congestive heart failure): Qualifiers: Heart failure chronicity: chronic Heart failure type: unspecified Qualified Code(s): I50.9 - Heart failure, unspecified (2) Cardiomyopathy: Qualifiers: Cardiomyopathy type: unspecified Qualified Code(s): I42.9 - Cardiomyopathy, unspecified (3) CHF exacerbation: (4) S/P ICD (internal cardiac defibrillator) procedure: (5) Atrial fibrillation: Qualifiers: Atrial fibrillation type: paroxysmal Qualified Code(s): I48.0 - Paroxysmal atrial fibrillation (6) Chronic kidney disease: (7) NAKUL (obstructive sleep apnea): Plan Acute systolic CHF exacerbation Does not watch his sodium and fluid intake Dietary indiscretion Gradual decline with underlying significant cardiomyopathy Class IV CHF I have counseled patient to reduce sodium intake and watch his fluid intake I will change his Lasix to Bumex IV Changes terazosin to tamsulosin Chronic kidney disease without acute exacerbation Patient has sleep apnea uses 2 L of oxygen at nighttime Right lower lobe infiltrate, likely related to pulmonary edema he has received antibiotics in the ER, I will keep him on Levaquin every 48 hours Full code Cardiac diet along consistent carb Would use insulin sliding scale Considering chronic kidney disease I would discontinue Entresto and reduce the dose of rivaroxaban to 10 mg Attestations 2 Medical Necessity Statement*: Anticipating discharge within 48 hours Diagnoses CHF (congestive heart failure) I50.9 Heart failure chronicity: chronic Heart failure type: unspecified Cardiomyopathy I42.9 Cardiomyopathy type: unspecified CHF exacerbation I50.9 S/P ICD (internal cardiac defibrillator) procedure Z95.810 Paroxysmal atrial fibrillation I48.0 Atrial fibrillation type: paroxysmal Chronic kidney disease N18.9 NAKUL (obstructive sleep apnea) G47.33
--- NOTE | 2023-09-17 20:12 | USCV_ITS ---
Eliseo Reyes Age: 62 Gender: M : 1960 Exam Date: 09/17/2023 20:57 Ordering Phys: Mayra Piña MD Technologist: PARISH Exam Location: [facility] Indication: LV EF, history of CHF, s/p pacer/defibrillator 2017. severe SOB. BP: 119 / 81 HR: 89 Rhythm: Paced rhythm with atrial fibrillation Technical Quality: Adequate MEASUREMENTS (Male / Female) Normal Values 2D ECHO LV Diastolic Diameter PLAX 7.1 cm 4.2 - 5.9 / 3.9 - 5.3 cm IVS Diastolic Thickness 1.4 cm 0.6 - 1.0 / 0.6 - 0.9 cm IVS Systolic Thickness 1.8 cm LVPW Diastolic Thickness 1.2 cm 0.6 - 1.0 / 0.6 - 0.9 cm LVPW Systolic Thickness 1.4 cm LVOT Diameter 2.7 cm LV Ejection Fraction 2D Teich 10.0 % LV Ejection Fraction MOD 4C 13.1 % LV Ejection Fraction MOD 2C 2.7 % LV Ejection Fraction 2C AL 1.8 % LA Diameter 5.5 cm LA Sys Volume AL 157.9 cm cubed LA Sys Volume Index AL 61.1 cm cubed/m squared Aorta at Sinotubular Diameter 3.5 cm IVC Diameter 2.7 cm M-MODE LA Ao Ratio MM 1.7 AV Cusp Separation MM 2.2 cm DOPPLER AV Peak Velocity 71.0 cm/s LVOT Peak Velocity 54.0 cm/s AV Area Cont Eq vti 4.2 cm squared AV Area Cont Eq pk 4.3 cm squared MV Peak Velocity 151.0 cm/s MV Area PHT 8.5 cm squared Mitral E to A Ratio 0.0 TV Peak Velocity 271.0 cm/s TR Peak Velocity 322.0 cm/s TR Peak Gradient 41.5 mmHg TV Peak E Velocity 85.0 cm/s Right Atrial Pressure 10.0 mmHg Pulmonary Artery Systolic Pressu 51.5 mmHg PV Peak Velocity 79.0 cm/s FINDINGS Left Ventricle Left ventricle is dilated. LV systolic function is severely reduced with EF of 10 to 15%. Severe global hypokinesis. Right Ventricle Severely hypokinetic. Pacemaker lead is seen. Right Atrium Dilated Left Atrium Dilated Mitral Valve Mild mitral annular calcification. Mild mitral regurgitation Aortic Valve Aortic valve is thickened. Mild aortic regurgitation. No significant stenosis. Tricuspid Valve Moderate tricuspid regurgitation. RVSP is 50-55mmHg. This is consistent with moderate pulmonary hypertension. Pulmonic Valve Mild pulmonic regurgitation. Pericardium Small sized pericardial effusion Aorta Ascending aorta is dilated with diameter of 3.64 cm. IVC IVC is dilated CONCLUSIONS Left ventricle is dilated. LV systolic function is severely reduced with EF of 10-15% RV is severely hypokinetic Biatrial enlargement Mild mitral regurgitation Mild aortic regurgitation Moderate tricuspid regurgitation. Moderate pulmonary hypertension Mild pulmonic regurgitation Small sized pericardial fusion Ascending aorta is dilated with diameter of 3.64 cm IVC is dilated. Compared to prior echocardiogram from 02/2023, LV systolic function has decreased further, RV is severely hypokinetic,small pericardial effusion is seen and IVC is dilated. Santiago Walden MD (Electronically Signed) Final Date: 18 September 2023 07:24 S
[2023-09-17 20:13] VITALS: BP 119/81; PULSE 112; RESP 18; TEMP 36.3; O2SAT 94
[2023-09-17 20:25] LABS: Glucose Point of Care 241 mg/dL (70-110)
[2023-09-17] MEDS: calcium carbonate 500 mg Chew Tablet 1000 MG PO (20:31)
[2023-09-17] MEDS: ondansetron 2 mg/ML SDV 2 mL 4 MG IVP (20:32)
--- NOTE | 2023-09-17 22:44 | PC.NURSE ---
Pt began complaining of increased shortness of breath. Checked vital signs, BP 126/77, HR 103, Spo2 94% on room air, and RR 24. Bilateral lower lobes presented fine crackles on expiration, moreso in the right lower lobe. Pt did not have this finding on the initial assessment completed by this nurse at 2049. Contacted RT Lili to see if the pt could have a PRN breathing treatment and contacted Dr. Piña with new findings who gave orders for the pt to be placed on BIPAP.
[2023-09-17 23:00] VITALS: PULSE 91; RESP 20; O2SAT 94
[2023-09-17] MEDS: ipratropium-albuterol 3 mL Neb INHALATION (23:00)
[2023-09-17 23:27] VITALS: PULSE 99
[2023-09-18] VITALS (13 sets, daily range): BP systolic 105–151; BP diastolic 67–94; PULSE 72–111; RESP 15–21; TEMP 36.3–37.1; O2SAT 91–100
--- NOTE | 2023-09-18 03:30 | ECG_ITS ---
[facility] Test Date: 2023-09-18 Pat Name: Eliseo Reyes Department: Room: 262 Gender: Male Director Of Solutions Architecture: : 1960 Requested By: Mayra Piña Order Number: [id number] Alek MD: Garland Downey M.D. Measurements Intervals [place] Rate: 101 P: 0 [place]: 0 QRS: 117 QRSD: 141 T: -21 QT: 396 QTc: 515 Interpretive Statements ATRIAL FIBRILLATION WITH RAPID VENTRICULAR RESPONSE RIGHT AXIS DEVIATION [QRS AXIS > 100] INTRAVENTRICULAR CONDUCTION DELAY [130+ ms QRS DURATION] Compared to ECG 09/17/2023 14:50:15 Myocardial infarct finding no longer present Electronically Signed On 09-19-2023 0:51:09 CDT by Garland Downey M.D. [id number]
[2023-09-18] MEDS: ondansetron 2 mg/ML SDV 2 mL 4 MG IVP ×2 (03:31→11:40)
--- NOTE | 2023-09-18 04:07 | CTR_ITS ---
PROCEDURE INFORMATION: Exam: CT Abdomen Without Contrast Exam date and time: 09/18/2023 4:32 AM Age: 62 years old Clinical indication: Abdominal tenderness and bloating; Additional info: Abdominal discomfort not relieved with medication TECHNIQUE: Imaging protocol: Computed tomography of the abdomen without contrast. Radiation optimization: All CT scans at this facility use at least one of these dose optimization techniques: automated exposure control; mA and/or kV adjustment per patient size (includes targeted exams where dose is matched to clinical indication); or iterative reconstruction. COMPARISON: US abdomen limited [id number] 04/28/2023 10:45 PM RADIATION DOSE METRICS: Total DLP (mGy-cm): 1000.9 FINDINGS: Tubes, catheters and devices: Pacemaker. Lungs: Calcified granuloma in the left lower lobe. Mild lingular infiltrate. Dependent dense atelectasis in the right lower lobe versus pneumonia. Pleural spaces: A small right pleural effusion. Liver: Normal. No mass. Gallbladder and biliary ducts: Slightly uniformly dense gallbladder, sludge or inspissated bile might be present. Trace fluid adjacent to the gallbladder. Pancreas: Normal. No ductal dilation. Spleen: Small calcified splenic granuloma. Adrenal glands: Bilateral adrenal hyperplasia. Kidneys and ureters: Normal. No hydronephrosis. Stomach and bowel: Visualized stomach and bowel are unremarkable. No obstruction. No mucosal thickening. Intraperitoneal space: There is a small amount of free fluid within the abdomen. Vasculature: Unremarkable. No abdominal aortic aneurysm. Lymph nodes: Unremarkable. No enlarged lymph nodes. Bones/joints: Unremarkable. No acute fracture. No dislocation. Soft tissues: Mild edema of the abdominal wall. CT/CT abdomen con [id number] IMPRESSION: 1. Mild infiltrates or atelectasis. 2. Small right pleural effusion. 3. Slight ascites. 4. Sludge or inspissated bile within the gallbladder probably present.
[2023-09-18 04:09] LABS: Glucose Point of Care 252 mg/dL (70-110)
[2023-09-18] MEDS: bumetanide 0.25 mg/mL SDV 10 mL 2 MG IVP ×3 (04:25→17:39)
--- NOTE | 2023-09-18 04:43 | USR_ITS ---
PROCEDURE INFORMATION: Exam: US Duplex Bilateral Lower Extremity Arteries Exam date and time: 09/18/2023 5:18 AM Age: 62 years old Clinical indication: Edema, localized; Lower extremity, bilateral; Patient HX: Bilateral leg edema; Additional info: New unpalpable pulses TECHNIQUE: Imaging protocol: Real-time ultrasound scan of the arteries of the bilateral lower extremities with 2-D hendrix scale, color Doppler flow and spectral waveform analysis. Images documented and saved. COMPARISON: No relevant prior studies available. FINDINGS: Right common femoral artery: No occlusion or significant stenosis. Normal waveform. Right superficial femoral artery: No occlusion or significant stenosis. Normal waveform. Right popliteal artery: No occlusion or significant stenosis. Normal waveform. Right calf/foot arteries: No occlusion or significant stenosis in the visualized arteries. Normal waveforms. Dorsalis pedis artery is patent. Left common femoral artery: No occlusion or significant stenosis. Normal waveform. Left superficial femoral artery: No occlusion or significant stenosis. Normal waveform. Left popliteal artery: No occlusion or significant stenosis. Normal waveform. Left calf/foot arteries: No occlusion or significant stenosis in the visualized arteries. Normal waveforms. Dorsalis pedis artery is patent. Right ASAEL 0.72. Left ASAEL 0.69. US/CV arterial duplex [facility] [id number] IMPRESSION: No stenosis or occlusion.
--- NOTE | 2023-09-18 04:55 | PC.NURSE ---
At 0330 the pt began complaining of abdominal discomfort and nausea. This nurse went to the room to reassess the pt. The pt felt clammy, and his color had changed from normal to an ashen and ill-appearing. The pt stated he didn't feel well at all and that his stomach felt so uncomfortable, and that he felt like it was very difficult to breathe. He belched multiple times as well. This nurse performed a repeat EKG per protocol and obtained vitals: BP 138/80, RR 20, HR 100, SpO2 94% on RA, temp 97.4F orally. This nurse reassessed the lung sounds and found that the fine crackles which had been found in the lower lobes at 2245 were now present also in the left upper lobe. This nurse also noticed that his feet appeared dusky, with a slight blue/purple tint and the toes especially were purple. His cap refill on both feet at this time was upwards of 10 seconds. This nurse attempted to palpate bilateral dorsalis pedis and posterior tibial pulses and could no longer do so. A doppler was used to locate the dorsalis pedis pulse on the left foot, and the posterior tibial pulse on the right foot. At this time his lower extremities felt cold to the touch, when at the beginning of the shift his lower extremities had been warm. Pitting edema still present on the bilateral lower legs. This nurse administered zofran as ordered. At [address] Piña and explained the changes in the patient's condition. Dr. Piña ordered a 1200 fluid restriction, an abdominal CT, and a verbal order to give the 0900 dose of bumex now. Due to technical difficulties with the Pyxis system this nurse put in a one time order for the same dose of bumex, and administered it before the pt was taken to CT at 0425. Dr. Piña then requested a picture of the pt's feet to be sent to him via VOALTE, which this nurse did after the pt returned to his room. Dr. Piña then ordered a stat arterial duplex study, and stated it is likely peripheral vascular disease as he did not see any ischemic foot changes. This nurse also informed Dr. Piña that the patient had received IV lasix in the ER at 1629, but had only voided 400mls since his arrival to the [facility] floor.
[2023-09-18 05:07] LABS: Basophils # 0.1 10^3/uL (0.0-0.1); Basophils % 0.4 %; Eosinophils % 0.1 %; Hematocrit 40.5 % (37-53); Lymphocytes # 1.9 10^3/uL (0.8-4.8); Lymphocytes % 13.2 %; Mean Corpuscular HGB Conc 29.9 g/dL (30-55); Mean Corpuscular Hemoglobin 25.5 pg (27-33); Mean Corpuscular Volume 85.4 fl (82-101); Mean Platelet Volume 9.6 fL (7.4-10.4); Monocytes # 1.4 10^3/uL (0.2-0.9); Monocytes % 9.7 %; Neutrophils % 75.9 %; Nucleated Red Blood Cells % 0 %; Platelet Count 408 10^3/cmm (157-399); Red Blood Count 4.74 10^6/uL (3.85-5.65); Red Cell Distribution Width 20.8 % (12.1-15.1); White Blood Count 14.09 10^3/uL (3.29-11.43)
[2023-09-18 05:25] LABS: Troponin(5th) Baseline 94 ng/L (0-15)
[2023-09-18 05:26] LABS: Anion Gap 18.2 (5-19); Blood Urea Nitrogen 51 mg/dL (8-23); Calcium 9.4 mg/dL (8.5-10.5); Carbon Dioxide 24 mmol/L (22-29); Chloride 95 mmol/L (98-107); Creatinine Clr Calc Pharmacy 42.9316; Glomerular Filtration Rate 27.5 mL/min (90-130); Glucose 244 mg/dL (65-115); Magnesium 2.4 mg/dL (1.7-2.3); Osmolality Calculated 296 mOsm/kg (285-295); Phosphorus 4.9 mg/dL (2.5-4.5); Potassium 5.2 mmol/L (3.5-5.1); Sodium 132 mmol/L (136-145)
--- NOTE | 2023-09-18 06:05 | PC.NURSE ---
BP taken in the left arm.
--- NOTE | 2023-09-18 06:06 | PC.NURSE ---
BP taken in the right arm.
[2023-09-18] MEDS: cefTRIAXone 1,000 mg SDV 1000 MG IVP (06:13)
[2023-09-18 06:15] LABS: Lipase 22 U/L (13-60)
--- NOTE | 2023-09-18 06:24 | ECG_ITS ---
[facility] Test Date: 2023-09-18 Pat Name: Eliseo Reyes Department: Room: 262 Gender: Male Director Of Student Affairs: : 1960 Requested By: Mayra Piña Order Number: [id number] Alek MD: Garland Downey M.D. Measurements Intervals [place] Rate: 105 P: 0 [place]: 0 QRS: 124 QRSD: 133 T: -7 QT: 394 QTc: 521 Interpretive Statements ATRIAL FIBRILLATION WITH RAPID VENTRICULAR RESPONSE INTRAVENTRICULAR CONDUCTION DELAY [130+ ms QRS DURATION] ANTEROLATERAL MYOCARDIAL INFARCTION , OF INDETERMINATE AGE [40+ ms Q WAVE IN I/aVL/V3-V6] Compared to ECG 09/18/2023 03:38:41 Right-axis deviation no longer present Myocardial infarct finding still present Electronically Signed On 09-19-2023 1:02:46 CDT by Garland Downey M.D. [id number]
--- NOTE | 2023-09-18 06:42 | US_ITS ---
WS: [id number] RIGHT UPPER QUADRANT ULTRASOUND HISTORY: SLudge COMPARISON: CT abdomen 09/18/2023, prior ultrasound 04/28/2023 Liver: 17.3 cm in length. Liver is enlarged. The surface of the liver is very slightly nodular raisin g the possibility of cirrhosis. No mass. No intrahepatic duct dilatation. Portal Vein: Mild phasic flow. There is some reversal posterior to the baseline. Gallbladder: Slightly contracted gallbladder. There is mild diffuse gallbladder wall thickening but n o stones. No sludge identified. No pericholecystic fluid. CBD: 0.4 cm Pancreas: Poorly visualized. Right kidney: 11.4 cm in length. Normal size and echogenicity. No hydronephrosis or mass. Aorta and IVC: Unremarkable abdominal aorta and IVC. There is a small amount of ascites in the RIGHT upper quadrant. US/US gall bladder [id number] IMPRESSION: 1. Slightly contracted gallbladder with diffuse wall thickening. No stones or sludge identified. The wall thickening is probably associated with hepatocellul ar disease and the ascites. 2. Small amount of ascites. 3. Liver is measuring slightly enlarged with changes suspicious for cirrhosis. 4. No hepatobiliary duct dilatation.
[2023-09-18 06:47] LABS: Glucose Point of Care 257 mg/dL (70-110)
[2023-09-18 07:16] LABS: Troponin 5 2HR 88.74 ng/L (0-15); Troponin 5 2HR Delta -5.26 ABS# (0-10)
[2023-09-18] MEDS: ipratropium-albuterol 3 mL Neb INHALATION ×2 (07:23→20:11)
[2023-09-18] MEDS: doxycycline 100 mg Tablet PO ×2 (08:10→17:39)
[2023-09-18] MEDS: amiodarone 200 mg Tablet PO (08:10)
[2023-09-18] MEDS: insulin lispro 100 unit/1 mL SUBCUT ×3 (08:10→17:39)
[2023-09-18] MEDS: carvedilol 3.125 mg Tablet PO (08:10)
[2023-09-18] MEDS: rivaroxaban 10 mg Tablet PO (08:10)
[2023-09-18] MEDS: tamsulosin 0.4 mg Capsule PO (08:10)
[2023-09-18] MEDS: sennosides-docusate Tablet 1 TAB PO (08:10)
[2023-09-18] MEDS: aspirin 81 mg EC Tablet PO (08:10)
[2023-09-18] MEDS: acetaminophen 500 mg Tablet PO (08:13)
[2023-09-18] MEDS: metOLazone 5 MG Tablet PO (08:13)
--- NOTE | 2023-09-18 09:37 | PC.CHAP ---
Pastoral Care Encounter/Spiritual Assessment Type of Contact [] Declined test skein winder visit [] Patient/Family/Request visit [] Outpatient visit [] Follow-up visit [] Physician referral [] Code/Alert [] Routine visit [] Staff referral [] Actively dying [] Patient sleeping [] Family support [] [] Out of room [] Palliative care [] [x] Receiving care in room [] Pre-surgical visit [] Trauma [] Long length of stay [] ICU visit [] Other: Relational/Emotional Strength [] Patient feels connected with others/family/visitors/staff [] Distress [] Loneliness/isolation [] Abandonment Spirituality of Patient [] Person of Yashira [] Attends Temple of their Yashira [] Believes in Prayer [] Reads Bible or Mandaeism materials [] There are Spiritual issues to be addressed History Instructor Interventions [] Prayer [] Active listening [] Non-anxious presence [] Spiritual/emotional support [] Crisis/trauma care [] Spiritual counseling [] Bereavement support [] Provided bereavement packet [] Provided Bible/devotional materials [] Provided toy/stuffed animal, coloring book to patient or family member [] Provided Communion [] Anointing/[place] [] Salvation [] Completed spiritual assessment [] Other: Impact on Illness or Injury [] Angry [] Fearful [] Anxious [] Often cries [] Exhaustion [] Unable to work [] Unable to attend episcopal [] Unable to walk/stand [] Unable to read [] Unable to drive [] Unable to eat/drink [] Unable to sleep [] Unable to be with family [] Patient intubated [] Other: Summary Time spent with patient
--- NOTE | 2023-09-18 09:57 | ECG_ITS ---
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 Measurements Intervals [place] Rate: 98 P: 0 DC: 0 QRS: 111 QRSD: 137 T: 2 QT: 396 QTc: 507 Interpretive Statements ATRIAL FIBRILLATION RIGHT AXIS DEVIATION [QRS AXIS > 100] INTRAVENTRICULAR CONDUCTION DELAY [130+ ms QRS DURATION] ANTEROSEPTAL MYOCARDIAL INFARCTION , OF INDETERMINATE AGE [40+ ms Q WAVE IN V1-V4] Compared to ECG 09/18/2023 03:37:21 Myocardial infarct finding now present Electronically Signed On 09-19-2023 1:02:25 CDT by Garland Downey M.D. [id number]
[2023-09-18 11:09] LABS: Troponin 5 6HR 95.54 ng/L (0-15); Troponin 5 6HR Delta 1.54 ng/L (0-12)
[2023-09-18 11:27] LABS: Glucose Point of Care 301 mg/dL (70-110)
--- NOTE | 2023-09-18 11:58 | PC.NURSE ---
This nurse called [facility] and gave report to IVÁN Ojeda. This nurse would have administered bumex but it was not verified by pharmacy at time of transfer
--- NOTE | 2023-09-18 12:16 | PM.PN ---
Subjective Subjective: Admitted overnight. H&P and labs appreciated. Today morning patient seen sitting up in chair. He states he is feeling out of breath. Overnight there were concerns for bluish discoloration of toes on the left leg for which arterial duplex was done. Patient denies any nausea, vomiting, headache. Denies any chest pains. Vitals/I&O/Wt Last Vital Signs Temp 97.6 F 09/18/23 11:29 Pulse 91 09/18/23 11:29 Resp 15 09/18/23 11:29 BP 105/67 09/18/23 11:29 Pulse Ox 91 09/18/23 11:29 O2 Del Method Nasal Cannula 09/18/23 11:29 O2 Flow Rate 3 09/18/23 11:29 09/17/23 09/18/23 09/18/23 22:59 06:59 14:59 Intake Total 1450 / 1450 480 / 1930 480 / 480 Output Total 400 / 400 0 / 400 600 / 600 Balance 1050 / 1050 480 / 1530 -120 / -120 Weight last 48 hrs Weight 127.913 kg Physical Exam Narrative: General: No acute distress, AO x3, chronically sick appearing, distended abdomen, elevated JVD HEENT: PERRLA, pupils bilaterally equal and reactive Chest: Normal vesicular breath sounds, no added sounds, decreased air entry bilateral lower zone CVS: S1-S2 regular, pansystolic murmur in fourth intercostal left retrosternal radiating to pericardium, no tachycardia, no gallops, no rubs Abdomen: Soft, nontender, no organomegaly, bowel sounds present Neuro: No focal deficits, no facial deformity, AO x3, power 5/5 in all limbs Urinary Catheter Management: Mathew: Cath Placed During This Visit: yes Reason for Continuing Indwelling Catheter: Acute Urinary Retention or Obstruction Urinary Catheter Date of Insertion: 09/18/23 Urinary Catheter Time of Insertion: 06:52 Data 09/18/23 04:59 09/18/23 04:59 Micro: Microbiology 09/17/23 18:07 Blood Culture - Preliminary Blood SPECIMEN COLLECTED 09/17/23 18:02 Blood Culture - Preliminary Blood SPECIMEN COLLECTED A&P Assessment and plan (1) CHF (congestive heart failure): History of nonischemic cardiomyopathy. Repeat echocardiogram done earlier this admission showed EF of 10 to 15% with biatrial enlargement, severely hypokinetic RV, moderate TR, mild MR, mild LA, dilated IVC. Fluid restriction up to 1 to 1.2 L. Target net negative around 1500 cc in next 24 hours Change metolazone to 5 mg oral daily. Continue with Bumex 2 mg IV every 8 hour. Depending on the urine output we will plan for diuretic drip. Check lactate. Depending on the lactate level we will plan for possible dobutamine drip. Hold off on carvedilol for now for maximizing the blood pressure for good diuretic response. Watch for arrhythmia. Monitor electrolytes every 12 hours. Replace potassium accordingly. Qualifiers: Heart failure chronicity: chronic Heart failure type: unspecified Qualified Code(s): I50.9 - Heart failure, unspecified (2) Cardiomyopathy: Qualifiers: Cardiomyopathy type: unspecified Qualified Code(s): I42.9 - Cardiomyopathy, unspecified (3) CHF exacerbation: (4) S/P ICD (internal cardiac defibrillator) procedure: (5) Atrial fibrillation: Continue with home dose of amiodarone 200 mg oral daily. Continue with home dose of Xarelto. Telemetry. Holding off on carvedilol as above. Qualifiers: Atrial fibrillation type: paroxysmal Qualified Code(s): I48.0 - Paroxysmal atrial fibrillation (6) Chronic kidney disease: Baseline creatinine around 2.1-2.4. Currently creatinine seems to be at baseline. Strict input charting as above. Medical reconciliation done for nephrotoxic drugs. Cannot rule out cardiorenal syndrome for now. (7) NAKUL (obstructive sleep apnea): Plan Hypoxia: Most likely in setting of congestive heart failure. Mild concern for pneumonia in right lower zone on chest x-ray. Check sputum culture. For now continue with doxycycline. Cardiac diet CODE STATUS: Discussed in detail with the patient. Discussed about severe cardiomyopathy. Patient would like to remain full code for now. Patient's son Aneesh will be the DPOA. Xarelto will be sufficient for DVT prophylaxis Protonix for PUD prophylaxis. Transfer to [facility]. Attestations Medical Necessity Statement*: Eliseo Minnie Eric is being changed to inpatient status as stay will now exceed 2 midnights. Ongoing hospital care is necessary for management of congestive heart failure exacerbation in setting of nonischemic cardiomyopathy with EF of 10 to 15% with concerns for cardiogenic shock Diagnoses CHF (congestive heart failure) I50.9 Heart failure chronicity: chronic Heart failure type: unspecified Cardiomyopathy I42.9 Cardiomyopathy type: unspecified CHF exacerbation I50.9 S/P ICD (internal cardiac defibrillator) procedure Z95.810 Paroxysmal atrial fibrillation I48.0 Atrial fibrillation type: paroxysmal Chronic kidney disease N18.9 NAKUL (obstructive sleep apnea) G47.33
[2023-09-18 13:38] LABS: Lactic Sepsis W/Reflex 5.1 mmol/L (0.5-2.2)
[2023-09-18] MEDS: DOBUTamine drip 500 MG/250 ML PREMIX 19.19 MG IV (14:15)
[2023-09-18] MEDS: pantoprazole 40 mg SDV IVP (14:15)
[2023-09-18 14:39] LABS: Reflex Lactate Order REFLEX LACTIC ORDERD
[2023-09-18 15:37] LABS: Potassium, Radom Urine 36 mmol/L; Urine Creatinine 28 mg/dL (39-259); Urine Random Chloride 84 mmol/L; Urine Random Sodium 74 mmol/L
[2023-09-18 15:55] LABS: Eosinophil Urine No Eosinophils Seen; Urine Eosinophil Count 0 (0-0)
[2023-09-18 16:11] LABS: Lactic Acid level (Lactate) 0.2 mmol/L (0.5-2.2)
--- NOTE | 2023-09-18 16:24 | P.CONIM_ITS ---
Providers/Reason For Consult 2 Consulting Physician/Specialty*: RITESH Downey MD/cardiology Reason for Consult*: Patient with chest pain and shortness of breath Requesting Physician: Dr. Soto Attending Physician: Attila Soto MD Primary Care Provider: Rochelle Rodriges MD History of Present Illness History of Present Illness Eliseo Reyes is a 62 year old male with a history of dilated cardiomyopathy and severe respiratory dysfunction, used to be admitted to hospital with progressive shortness of breath and a cough. This patient is known to have nonischemic cardiomyopathy with a severely systolic dysfunction. He had multiple hospital admissions in the recent past with decompensated heart failure. He was also found to have chronic kidney disease with a intermittent episodes of kidney injury, possibly from the low output state. He was only discharged in the hospital few days ago. He was admitted with another episode of decompensated heart failure. According to the patient, he felt okay for a few days after the discharge. For the last 1 week or so, he is shortness of breath again started getting worse. He also had a cough. His had features of upper respiratory infection and was tested positive for multiple viruses. She did not have any COVID-19. The patient noticed swelling of the lower extremities and increasing girth of the abdomen. He is morbidly obese. Patient has multiple medical problems including essential benign hypertension, dyslipidemia, insulin requiring diabetes, obstructive sleep apnea, GERD, history of DVT, atrial fibrillation on long-term oral anticoagulation He had a cardiac catheterization in February of this year and was found to have no significant obstructive coronary artery disease. Patient has a longstanding history of congestive heart failure. He had an ICD implanted several years ago by Dr. Botello at the [facility] in [place]. He is LV ejection fraction was around 35% at the time of the ICD insertion. The ejection fraction was around 25% in February of this year. Yesterday the echocardiac revealed ejection fraction of 10 to 15%. He apparently had a ICD discharge only 1 time. He never had any ICD revisions so far. It is a single lead device. Pacing is programmed for VVI mode. He has his ICD follow-ups in [place]. His initial labs revealed worsening BUN/creatinine, hyperkalemia and hyponatremia. He was found to have features of low outputs syndrome with a cold and clammy extremities. He was started on IV Dobutrex. He is seems to be making some improvement at this point. Review of Systems 2 Narrative: CONSTITUTIONAL: No fever or chills. EYES: No blurring of vision or other visual disturbances lately. ENT: No hoarseness of voice, auditory disturbances or sore throat. CARDIOVASCULAR: As mentioned above. RESPIRATORY: Asthma possible infection symptoms. GASTROINTESTINAL: No hematemesis or melena. GENITOURINARY: Worsening kidney function as mentioned above INTEGUMENTARY: No skin rashes or history of skin cancer. NEURO: No transient ischemic attacks or amaurosis. PSYCHIATRIC: No history of psychosis or major depression. HEMATOLOGIC: No bleeding disorders or significant anemia. ENDOCRINE: Insulin requiring diabetes MUSCULOSKELETAL: No recent joint pain or swelling. ALLERGY/IMMUNOLOGY: As mentioned above. Medications/Allergies Home Medications Medication Instructions Recorded Confirmed Last Taken Type allopurinol 100 mg tablet 100 mg PO DAILY 06/30/19 09/18/23 09/17/23 History citalopram 20 mg tablet 20 mg PO DAILY 06/30/19 09/18/23 09/17/23 History rivaroxaban 20 mg tablet (Xarelto) 20 mg PO DAILY 06/30/19 09/18/23 09/17/23 History terazosin 1 mg capsule 1 mg PO BEDTIME 06/30/19 09/18/23 09/16/23 History ergocalciferol (vitamin D2) 1,250 50,000 unit PO Q7D 03/02/23 09/18/23 09/17/23 History mcg (50,000 unit) capsule carvedilol 3.125 mg tablet 3.125 mg PO BID #60 tabs 03/05/23 09/18/23 09/17/23 Rx amiodarone 200 mg tablet 200 mg PO DAILY #90 tabs 03/14/23 09/18/23 09/17/23 Rx empagliflozin 25 mg tablet 25 mg PO QAM 04/29/23 09/18/23 09/17/23 History (Jardiance) atorvastatin 80 mg tablet 80 mg PO QPM 05/07/23 09/18/23 09/16/23 History insulin glargine 100 unit/mL 25 unit SUBCUT BID 05/07/23 09/18/23 09/17/23 History subcutaneous solution (Lantus U-100 Insulin) furosemide 80 mg tablet (Lasix) 80 mg PO BID #60 tabs 06/06/23 09/18/23 09/17/23 Rx sacubitril 97 mg-valsartan 103 mg 1 tab PO BID #60 tabs 06/06/23 09/18/23 08/29/23 Rx tablet (Entresto) aspirin 81 mg tablet,delayed 81 mg PO DAILY 08/29/23 09/18/23 09/17/23 History release insulin lispro 200 unit/mL (3 mL) 60 unit SUBCUT TID 09/18/23 09/18/23 09/17/23 History subcutaneous pen (Humalog KwikPen U-200 Insulin) omeprazole 40 mg capsule,delayed 40 mg PO DAILY 09/18/23 09/18/23 09/17/23 History release potassium chloride 20 mEq 20 meq PO DAILY 09/18/23 09/18/23 09/17/23 History tablet,extended release spironolactone 25 mg tablet 25 mg PO DAILY 09/18/23 09/18/23 09/17/23 History Allergies Allergy/AdvReac Type Severity Reaction Status Date / Time No Known Allergies Allergy Verified 08/29/23 08:53 Current Medications Generic Name Dose Route Start Last Admin Trade Name Freq PRN Reason Stop Dose Admin Acetaminophen 500 mg 09/17/23 20:00 09/18/23 08:13 Acetaminophen 500 Mg Tablet PO 500 mg Q4H PRN Administration fever Albuterol/Ipratropium 3 ml 09/17/23 20:00 09/18/23 07:23 Ipratropium-Albuterol 3 Ml Neb INHALATION 3 ml Q6H PRN Administration SHORTNESS OF BREATH Amiodarone HCl 200 mg 09/18/23 09:00 09/18/23 08:10 Amiodarone 200 Mg Tablet PO 200 mg DAILY DEMARCO Administration Aspirin 81 mg 09/18/23 09:00 09/18/23 08:10 Aspirin 81 Mg Ec Tablet PO 81 mg DAILY DEMARCO Administration Bumetanide 2 mg 09/18/23 11:25 09/18/23 12:25 Bumetanide 0.25 Mg/Ml Sdv 10 Ml IVP 2 mg Q8H DEMARCO Administration Carvedilol 3.125 mg 09/18/23 09:00 09/18/23 08:10 Carvedilol 3.125 Mg Tablet PO 3.125 mg BID DEMARCO Administration Ceftriaxone Sodium 1,000 mg 09/18/23 06:00 09/18/23 06:13 Ceftriaxone 1,000 Mg Sdv IVP 1,000 mg Q24H DEMARCO Administration Protocol Doxycycline Monohydrate 100 mg 09/18/23 09:00 09/18/23 08:10 Doxycycline 100 Mg Tablet PO 100 mg BID DEMARCO Administration Protocol Dobutamine HCl/Dextrose 500 mg in 250 mls @ 19.187 mls/hr 09/18/23 14:15 09/18/23 14:15 Dobutamine Drip IV 5 mcg/kg/min .Q13H2M DEMARCO 19.19 mls/hr Administration 5 MCG/KG/MIN Insulin Human Lispro 0 unit 09/18/23 08:00 09/18/23 11:36 Insulin Lispro 100 Unit/1 Ml SUBCUT 12 unit TIDWM DEMARCO Administration Protocol Ondansetron HCl 4 mg 09/17/23 20:00 09/18/23 11:40 Ondansetron 2 Mg/Ml Sdv 2 Ml IVP 4 mg Q6H PRN Administration NAUSEA AND VOMITING Pantoprazole Sodium 40 mg 09/18/23 14:05 09/18/23 14:15 Pantoprazole 40 Mg Sdv IVP 40 mg DAILY DEMARCO Administration Rivaroxaban 10 mg 09/18/23 09:00 09/18/23 08:10 Rivaroxaban 10 Mg Tablet PO 10 mg DAILY DEMARCO Administration Senna/Docusate Sodium 1 tab 09/18/23 09:00 09/18/23 08:10 Sennosides-Docusate Tablet PO 1 tab DAILY DEMARCO Administration Tamsulosin HCl 0.4 mg 09/18/23 09:00 09/18/23 08:10 Tamsulosin 0.4 Mg Capsule PO 0.4 mg DAILY DEMARCO Administration PFSH Acute 2 PFSH: Medical History Arthritis Chronic kidney disease Atrial fibrillation Anticoagulation adequate with anticoagulant therapy Dyslipidemia NAKUL (obstructive sleep apnea) CHF (congestive heart failure) Diabetes DVT (deep venous thrombosis) Cardiomyopathy Surgical History S/P knee replacement S/P ICD (internal cardiac defibrillator) procedure Family History Father Stroke CAD (coronary artery disease) Sister Stroke Brother Stroke Other Hypertension Social History Smoking and tobacco/nicotine status: never used tobacco/nicotine Alcohol intake: never Substance/Drug Use: never Vitals/I&O/Wt Last Vital Signs Temp 97.6 F 09/18/23 11:29 Pulse 91 09/18/23 11:29 Resp 15 09/18/23 11:29 BP 105/67 09/18/23 11:29 Pulse Ox 91 09/18/23 11:29 O2 Del Method Nasal Cannula 09/18/23 11:29 O2 Flow Rate 3 09/18/23 11:29 09/18/23 09/18/23 09/18/23 06:59 14:59 22:59 Intake Total 480 / 1930 480 / 480 Output Total 0 / 400 600 / 600 Balance 480 / 1530 -120 / -120 Weight last 48 hrs Weight 282 lb Physical Exam 2 Narrative: GENERAL: The patient is alert and oriented times three. Not in any acute distress. Morbidly obese HEENT: No significant pallor, icterus or lymphadenopathy.Oral cavity: There are no mucous membrane lesions. NECK: Trachea appears to be central. No masses noted. No JVD or thyromegaly appreciated. RESPIRATORY: Chest is symmetrical. No intercostals muscle retraction or any accessory muscle activation. There is no chest wall tenderness. Breath sounds are heard bilaterally. Few fine rales at the base no evidence of any consolidation. BREASTS: Deferred. HEART: The heart sounds are normal. No S3 or S4. Short systolic murmur at the left heart border. No diastolic murmurs. No pericardial rub ABDOMEN: Markedly obese. Possible free fluid : Deferred. RECTAL: Deferred. LYMPHATIC: No lymphadenopathy noted in the neck. EXTREMITIES: 1+ edema both lower extremities. Extremities are relatively cold. MUSCULOSKELETAL: No acute joint deformities or swelling SKIN: Features of chronic venous stasis and healed venous ulcers of the lower extremities. NEUROPSYCHIATRIC: The patient is alert and oriented x3. Appears to be in a good mood. No tremors or rigidity noted. Urinary Catheter Management: Mathew: Cath Placed During This Visit: yes Reason for Continuing Indwelling Catheter: Acute Urinary Retention or Obstruction Urinary Catheter Date of Insertion: 09/18/23 Urinary Catheter Time of Insertion: 06:52 Data 09/18/23 04:59 09/18/23 15:22 Other Labs: Laboratory Last Values WBC 14.09 10^3/uL (3.29-11.43) H 09/18/23 04:59 RBC 4.74 10^6/uL (3.85-5.65) 09/18/23 04:59 Hgb 12.10 g/dL (11.27-16.99) 09/18/23 04:59 Hct 40.5 % (37-53) 09/18/23 04:59 MCV 85.4 fl (82-101) 09/18/23 04:59 MCH 25.5 pg (27-33) L 09/18/23 04:59 MCHC 29.9 g/dL (30-55) L 09/18/23 04:59 RDW 20.8 % (12.1-15.1) H 09/18/23 04:59 Plt Count 408 10^3/cmm (157-399) H 09/18/23 04:59 MPV 9.6 fL (7.4-10.4) 09/18/23 04:59 Neut % (Auto) 75.9 % 09/18/23 04:59 Lymph % (Auto) 13.2 % 09/18/23 04:59 [place] % (Auto) 9.7 % 09/18/23 04:59 Eos % (Auto) 0.1 % 09/18/23 04:59 Baso % (Auto) 0.4 % 09/18/23 04:59 Neut # (Auto) 10.70 10^3/uL (1.8-7.7) H 09/18/23 04:59 Lymph # (Auto) 1.9 10^3/uL (0.8-4.8) 09/18/23 04:59 [place] # (Auto) 1.4 10^3/uL (0.2-0.9) H 09/18/23 04:59 Eos # (Auto) 0.0 10^3/uL (0.0-0.8) 09/18/23 04:59 Baso # (Auto) 0.1 10^3/uL (0.0-0.1) 09/18/23 04:59 Nucleated RBC % (auto) 0 % 09/18/23 04:59 Nucleated RBCs # 0.0 /100WBC 09/18/23 04:59 PT 29.20 SECONDS (12.1-14.9) H 09/17/23 16:15 INR 2.64 (0.8-1.2) H 09/17/23 16:15 Sodium Cancelled 09/18/23 18:40 Potassium Cancelled 09/18/23 18:40 Chloride Cancelled 09/18/23 18:40 Carbon Dioxide Cancelled 09/18/23 18:40 Anion Gap Cancelled 09/18/23 18:40 BUN Cancelled 09/18/23 18:40 Creatinine Cancelled 09/18/23 18:40 GFR Calculation Cancelled 09/18/23 18:40 Glucose Cancelled 09/18/23 18:40 POC Glucose 254 mg/dL (70-110) H 09/18/23 17:22 Calculated Osmolality Cancelled 09/18/23 18:40 Lactic Acid 5.1 mmol/L (0.5-2.2) H* 09/18/23 12:34 Lactic Acid (Sepsis) 0.2 mmol/L (0.5-2.2) L 09/18/23 15:22 Lactate Cancelled 09/18/23 18:40 Calcium Cancelled 09/18/23 18:40 Phosphorus 4.9 mg/dL (2.5-4.5) H 09/18/23 04:59 Magnesium 2.4 mg/dL (1.7-2.3) H 09/18/23 04:59 Total Bilirubin 0.7 mg/dL (0.15-1.2) 09/17/23 16:15 AST 25 U/L (0-40) 09/17/23 16:15 ALT 30 U/L (0-41) 09/17/23 16:15 Alkaline Phosphatase 210 U/L (40-130) H 09/17/23 16:15 Troponin T Baseline 94 ng/L (0-15) H 09/18/23 04:59 Troponin T 120 Minute 88.74 ng/L (0-15) H 09/18/23 06:49 Delta Troponin T -5.26 ABS# (0-10) L 09/18/23 06:49 Troponin T Hi Sens 6Hr 95.54 ng/L (0-15) H 09/18/23 10:45 Troponin T Hi Sens 6Hr Delta 1.54 ng/L (0-12) 09/18/23 10:45 NT-Pro-B Natriuret Pep 5911 pg/mL (0-125) H 09/17/23 16:15 Total Protein 7.2 g/dL (6.6-8.7) 09/17/23 16:15 Albumin 3.3 g/dL (3.5-5.2) L 09/17/23 16:15 Globulin 3.9 g/dL (1.3-4.6) 09/17/23 16:15 Lipase 22 U/L (13-60) 09/18/23 04:59 Ur Eosinophil Smear 0 (0-0) 09/18/23 15:02 Urine Eosinophils No eosinophils seen 09/18/23 15:02 Ur Random Sodium 74 mmol/L 09/18/23 15:02 Ur Random Potassium 36 mmol/L 09/18/23 15:02 Ur Random Chloride 84 mmol/L 09/18/23 15:02 Urine Creatinine 28 mg/dL (39-259) L 09/18/23 15:02 SARS-CoV-2 Ag (Rapid) negative (Negative) 09/17/23 16:36 Micro: Microbiology 09/17/23 18:07 Blood Culture - Preliminary Blood SPECIMEN COLLECTED 09/17/23 18:02 Blood Culture - Preliminary Blood SPECIMEN COLLECTED Other data: EKG from today 09/18/2023 Atrial fibrillation with controlled ventricular response rate. Poor R wave progression. Possible old anteroseptal ME nonspecific IVCD. Right axis deviation. Echocardiogram done on 09/18/2023 Left ventricle is dilated. LV systolic function is severely reduced with EF of 10-15% RV is severely hypokinetic Biatrial enlargement Mild mitral regurgitation Mild aortic regurgitation Moderate tricuspid regurgitation. Moderate pulmonary hypertension Mild pulmonic regurgitation Small sized pericardial fusion Ascending aorta is dilated with diameter of 3.64 cm IVC is dilated. Compared to prior echocardiogram from 02/2023, LV systolic function has decreased further, RV is severely hypokinetic,small pericardial effusion is seen and IVC is dilated. Cardiac catheterization in February 2023 * INDICATION: Abnormal stress test/ troponin elevation/ LV dysfunction. * Left Main has no significant disease. * Left Anterior Descending has no significant disease. * Circumflex has mild luminal irregularities. * Distal Right Coronary Artery: minimal 30% stenosis, MISTY: 3 flow. * Coronary angiography shows right dominance. Conclusions 1. Nonobstructive CAD. 2. Nonischemic cardiomyopathy. Echocardiogram in February 2023 Severe diffuse hypokinesia of the left ventricular with ejection fraction of 25%. Mildly increased left atrial size. Mild mitral valve regurgitation. Thickened aortic valve. Mildly dilated LV cavity. Pacemaker/defibrillator wire in the right atrium/right ventricle There is no pericardial effusion. Compared to the study from 07/08/2014, there seems to be a drop in the LV ejection fraction from 35 to 25% A&P Assessment and plan (1) Acute on chronic systolic heart failure: Patient seems to have end-stage heart disease with recurrent decompensated heart failure of class IV. IV Dobutrex may temporarily improve the decompensation. However medical options are very limited at this point, especially in view of the worsening kidney function. May need to consider upgrading the ICD to a MACHINE SETTER SHEET METAL- D. The QRS duration is 138 ms. (2) Secondary nonischemic congestive cardiomyopathy: Patient has progressive worsening of LV systolic function from 35% to 25% and lately 10-15 %. He was found no significant coronary disease by angiogram in February. May also in need to be evaluated for LVAD. (3) Dyslipidemia: Continue on the current medications (4) S/P ICD (internal cardiac defibrillator) procedure: No ICD discharges in the recent past. Continue on the current monitoring. May consider upgrade to MACHINE SETTER SHEET METAL-D (5) Atrial fibrillation: Currently normal sinus rhythm. Continue on the current medications. Continue oral anticoagulation. Qualifiers: Atrial fibrillation type: paroxysmal Qualified Code(s): I48.0 - Paroxysmal atrial fibrillation (6) Diabetes: Aggressive management will be appropriate Qualifiers: Diabetes mellitus type: type 2 Diabetes mellitus penitentiary insulin use: with penitentiary use Diabetes mellitus complication status: with circulatory complication Diabetes mellitus complication detail: with other circulatory complications Qualified Code(s): E11.59 - Type 2 diabetes mellitus with other circulatory complications; Z79.4 - penitentiary (current) use of insulin (7) Chronic renal failure: The low output state might be contributing to the worsening kidney function. Will repeat the BMP in the morning. Qualifiers: Chronic kidney disease stage: unspecified stage Qualified Code(s): N 18.9 - Chronic kidney disease, unspecified Plan The other problems are Hyponatremia Leukocytosis Obstructive sleep apnea Morbid obesity History of DVT Possible upper respiratory infection Reviewed infusion was started to 5 mics per KG per minute. We may go up to 10 mics for a total of 24 to 48 hours. The possible side effects of this medication where discussed. His urine output will be closely monitored. Based on the clinical response, further recommendations will be made Thank you for the opportunity to evaluate this patient and make these recommendations Consult Attestations 2 Medical Necessity Statement: Patient requires continued hospital stay for close monitoring and further management Coding Level of Care Code 44156 Diagnoses Acute on chronic systolic heart failure I50.23 Secondary nonischemic congestive cardiomyopathy I42.0 Dyslipidemia E78.5 S/P ICD (internal cardiac defibrillator) procedure Z95.810 Paroxysmal atrial fibrillation I48.0 Atrial fibrillation type: paroxysmal Type 2 diabetes mellitus with other circulatory complication, with long-term current use of insulin E11.59; Z79.4 Diabetes mellitus type: type 2 Diabetes mellitus ferry terminal supervisor insulin use: with ferry terminal supervisor use Diabetes mellitus complication status: with circulatory complication Diabetes mellitus complication detail: with other circulatory complications Chronic renal failure N18.9 Chronic kidney disease stage: unspecified stage Time Spent (min) 70
[2023-09-18 17:22] LABS: Anion Gap 30.3 (5-19); Blood Urea Nitrogen 57 mg/dL (8-23); Carbon Dioxide 13 mmol/L (22-29); Chloride 92 mmol/L (98-107); Glomerular Filtration Rate 27.5 mL/min (90-130); Glucose 228 mg/dL (65-115); Osmolality Calculated 291 mOsm/kg (285-295); Potassium 6.3 mmol/L (3.5-5.1); Sodium 129 mmol/L (136-145)
[2023-09-18 17:25] LABS: Glucose Point of Care 254 mg/dL (70-110)
[2023-09-18 17:37] LABS: Creatinine Clr Calc Pharmacy 42.9316
[2023-09-18 17:38] LABS: Calcium 9.5 mg/dL (8.5-10.5)
--- NOTE | 2023-09-18 18:26 | PC.NURSE ---
Unable to perform pacemaker check at this time due device not reading. Will find another device.
[2023-09-18 19:59] LABS: Lactate (Lactic Acid level) 2.3 mmol/L (0.5-2.2)
[2023-09-18 20:00] LABS: Anion Gap 19.3 (5-19); Blood Urea Nitrogen 59 mg/dL (8-23); Calcium 9.4 mg/dL (8.5-10.5); Carbon Dioxide 26 mmol/L (22-29); Chloride 93 mmol/L (98-107); Creatinine Clr Calc Pharmacy 39.6292; Glomerular Filtration Rate 25.1 mL/min (90-130); Glucose 250 mg/dL (65-115); Osmolality Calculated 301 mOsm/kg (285-295); Potassium 5.3 mmol/L (3.5-5.1); Sodium 133 mmol/L (136-145)
--- NOTE | 2023-09-18 20:16 | PC.NURSE ---
Dr. Soto was contacted with BMP and lactate results. He ordered to keep everything as is through the night.
[2023-09-18 20:20] LABS: Glucose Point of Care 287 mg/dL (70-110)
[2023-09-18] MEDS: insulin glargine 100 units/1 mL 20 UNIT SUBCUT (20:52)
[2023-09-19] VITALS (9 sets, daily range): BP systolic 108–163; BP diastolic 68–84; PULSE 83–102; RESP 16–20; TEMP 36.6–37.1; O2SAT 92–99; BMI 39.3
--- NOTE | 2023-09-19 01:42 | PC.NURSE ---
Patient's biotronik pacemaker was interrogated. Report is in patient's paper chart.
[2023-09-19] MEDS: bumetanide 0.25 mg/mL SDV 10 mL 2 MG IVP ×2 (03:33→10:26)
[2023-09-19] MEDS: DOBUTamine drip 500 MG/250 ML PREMIX 19.19 MG IV (03:34)
[2023-09-19 05:08] LABS: Basophils % 0.2 %; Eosinophils % 0.2 %; Hematocrit 36.7 % (37-53); Lymphocytes # 1.4 10^3/uL (0.8-4.8); Lymphocytes % 11.1 %; Mean Corpuscular HGB Conc 31.1 g/dL (30-55); Mean Corpuscular Hemoglobin 26.1 pg (27-33); Mean Platelet Volume 9.5 fL (7.4-10.4); Monocytes # 0.8 10^3/uL (0.2-0.9); Monocytes % 5.9 %; Neutrophils # 10.37 10^3/uL (1.8-7.7); Nucleated Red Blood Cells % 0 %; Platelet Count 344 10^3/cmm (157-399); Red Blood Count 4.37 10^6/uL (3.85-5.65); Red Cell Distribution Width 20.2 % (12.1-15.1); White Blood Count 12.65 10^3/uL (3.29-11.43)
[2023-09-19] MEDS: cefTRIAXone 1,000 mg SDV 1000 MG IVP (05:25)
[2023-09-19 05:28] LABS: Albumin Level 3.2 g/dL (3.5-5.2); Alkaline Phosphatase 197 U/L (40-130); Anion Gap 16.3 (5-19); Blood Urea Nitrogen 61 mg/dL (8-23); Calcium 9.5 mg/dL (8.5-10.5); Carbon Dioxide 29 mmol/L (22-29); Chloride 93 mmol/L (98-107); Creatinine Clr Calc Pharmacy 41.2143; Globulin 3.6 g/dL (1.3-4.6); Glomerular Filtration Rate 26.2 mL/min (90-130); Glucose 169 mg/dL (65-115); Lactate (Lactic Acid level) 1.8 mmol/L (0.5-2.2); Osmolality Calculated 299 mOsm/kg (285-295); Potassium 4.3 mmol/L (3.5-5.1); Sodium 134 mmol/L (136-145); Total Bilirubin 1.2 mg/dL (0.15-1.2); Total Protein 6.8 g/dL (6.6-8.7)
[2023-09-19 05:41] LABS: Alanine Aminotransferase 1126 U/L (0-41)
[2023-09-19 05:44] LABS: Aspartate Amino Transferase 1330 U/L (0-40)
[2023-09-19 06:19] LABS: Glucose Point of Care 191 mg/dL (70-110)
[2023-09-19] MEDS: insulin lispro 100 unit/1 mL SUBCUT ×3 (08:09→16:50)
[2023-09-19] MEDS: pantoprazole 40 mg SDV IVP (08:09)
[2023-09-19] MEDS: aspirin 81 mg EC Tablet PO (08:10)
[2023-09-19] MEDS: doxycycline 100 mg Tablet PO ×2 (08:10→16:50)
[2023-09-19] MEDS: rivaroxaban 10 mg Tablet PO (08:10)
[2023-09-19] MEDS: citalopram 20 mg Tablet PO (08:10)
[2023-09-19] MEDS: sennosides-docusate Tablet 1 TAB PO (08:10)
[2023-09-19] MEDS: amiodarone 200 mg Tablet PO (08:10)
[2023-09-19] MEDS: tamsulosin 0.4 mg Capsule PO (08:10)
--- NOTE | 2023-09-19 08:45 | PC.SOCIAL ---
IMM Update Pg. 2 of IMM updated; copy provided to patient at bedside.
--- NOTE | 2023-09-19 09:42 | PM.PN ---
Subjective Subjective: The patient is feeling better. The urine output seems to be improving. The blood pressure is holding up Medications: Medication Review Details: Current Medications Acetaminophen (Acetaminophen 500 Mg Tablet) 500 mg PO Q4H PRN PRN Reason: fever Last Admin: 09/18/23 08:13 Dose: 500 mg Albuterol/Ipratropium (Ipratropium-Albuterol 3 Ml Neb) 3 ml INHALATION Q6H PRN PRN Reason: SHORTNESS OF BREATH Last Admin: 09/18/23 20:11 Dose: 3 ml Amiodarone HCl (Amiodarone 200 Mg Tablet) 200 mg PO DAILY COUNT INCLUDES THE [facility] Last Admin: 09/19/23 08:10 Dose: 200 mg Aspirin (Aspirin 81 Mg Ec Tablet) 81 mg PO DAILY COUNT INCLUDES THE [facility] Last Admin: 09/19/23 08:10 Dose: 81 mg Bumetanide (Bumetanide 0.25 Mg/Ml Sdv 10 Ml) 2 mg IVP Q8H COUNT INCLUDES THE [facility] Last Admin: 09/19/23 03:33 Dose: 2 mg Carvedilol (Carvedilol 3.125 Mg Tablet) 3.125 mg PO BID COUNT INCLUDES THE [facility] Last Admin: 09/18/23 08:10 Dose: 3.125 mg Ceftriaxone Sodium (Ceftriaxone 1,000 Mg Sdv) 1,000 mg IVP Q24H COUNT INCLUDES THE [facility]; Protocol Last Admin: 09/19/23 05:25 Dose: 1,000 mg Citalopram Hydrobromide (Citalopram 20 Mg Tablet) 20 mg PO DAILY COUNT INCLUDES THE [facility] Last Admin: 09/19/23 08:10 Dose: 20 mg Doxycycline Monohydrate (Doxycycline 100 Mg Tablet) 100 mg PO BID COUNT INCLUDES THE [facility]; Protocol Last Admin: 09/19/23 08:10 Dose: 100 mg Glucagon (Glucagon 1 Mg/Ml Kit 1 Ml) 1 mg IM ONCE PRN; Protocol PRN Reason: Adult Acute Hypoglycemia Nursing Prot. Dextrose (D5w) 500 mls @ 0 mls/hr IV ONCE PRN; Protocol PRN Reason: Adult Acute Hypoglycemia Prot Dextrose (D10w) 125 mls @ 750 mls/hr IV PRN PRN; Protocol PRN Reason: Adult Acute Hypoglycemia Nursing Protocol Dextrose (D10w) 250 mls @ 1,000 mls/hr IV PRN PRN; Protocol PRN Reason: Adult Acute Hypoglycemia Nursing Protocol Dobutamine HCl/Dextrose (Dobutamine Drip) 500 mg in 250 mls @ 11.512 mls/hr IV .[id number] COUNT INCLUDES THE [facility] Last Admin: 09/19/23 03:34 Dose: 5 mcg/kg/min, 19.19 mls/hr Insulin Glargine (Insulin Glargine 100 Units/1 Ml) 20 unit SUBCUT BEDTIME COUNT INCLUDES THE [facility] Last Admin: 09/18/23 20:52 Dose: 20 unit Insulin Human Lispro (Insulin Lispro 100 Unit/1 Ml) 0 unit SUBCUT TIDWM COUNT INCLUDES THE [facility]; Protocol Last Admin: 09/19/23 08:09 Dose: 6 unit Lactulose (Lactulose Oral Liq 20 Gm/30 Ml Udc) 30 gm PO ONCE ONE Stop: 09/19/23 09:43 Ondansetron HCl (Ondansetron 2 Mg/Ml Sdv 2 Ml) 4 mg IVP Q6H PRN PRN Reason: NAUSEA AND VOMITING Last Admin: 09/18/23 11:40 Dose: 4 mg Pantoprazole Sodium (Pantoprazole 40 Mg Sdv) 40 mg IVP DAILY COUNT INCLUDES THE [facility] Last Admin: 09/19/23 08:09 Dose: 40 mg Rivaroxaban (Rivaroxaban 10 Mg Tablet) 10 mg PO DAILY COUNT INCLUDES THE [facility] Last Admin: 09/19/23 08:10 Dose: 10 mg Senna/Docusate Sodium (Sennosides-Docusate Tablet) 1 tab PO DAILY COUNT INCLUDES THE [facility] Last Admin: 09/19/23 08:10 Dose: 1 tab Tamsulosin HCl (Tamsulosin 0.4 Mg Capsule) 0.4 mg PO DAILY COUNT INCLUDES THE [facility] Last Admin: 09/19/23 08:10 Dose: 0.4 mg Vitals/I&O/Wt Last Vital Signs Temp 97.9 F 09/19/23 07:52 Pulse 96 09/19/23 08:39 Resp 20 H 09/19/23 08:39 BP 141/84 09/19/23 07:52 Pulse Ox 96 09/19/23 08:39 O2 Del Method Nasal Cannula 09/19/23 08:39 O2 Flow Rate 3 09/19/23 08:39 09/18/23 09/19/23 09/19/23 22:59 06:59 14:59 Intake Total 500 / 980 250 / 1230 Output Total 3550 / 4150 2150 / 6300 1950 / 1950 Balance -3050 / -3170 -1900 / -5070 -1950 / -1950 Weight last 48 hrs Weight 282 lb Weight 282 lb Physical Exam Narrative: GENERAL: The patient is alert and oriented times three. Not in any acute distress. Morbidly obese HEENT: No significant pallor, icterus or lymphadenopathy.Oral cavity: There are no mucous membrane lesions. NECK: Trachea appears to be central. No masses noted. No JVD or thyromegaly appreciated. RESPIRATORY: Chest is symmetrical. No intercostals muscle retraction or any accessory muscle activation. There is no chest wall tenderness. Breath sounds are heard bilaterally. Few fine rales at the base no evidence of any consolidation. BREASTS: Deferred. HEART: The heart sounds are normal. No S3 or S4. Short systolic murmur at the left heart border. No diastolic murmurs. No pericardial rub ABDOMEN: Markedly obese. Possible free fluid : Deferred. RECTAL: Deferred. LYMPHATIC: No lymphadenopathy noted in the neck. EXTREMITIES: 1+ edema both lower extremities. Extremities are relatively cold. MUSCULOSKELETAL: No acute joint deformities or swelling SKIN: Features of chronic venous stasis and healed venous ulcers of the lower extremities. NEUROPSYCHIATRIC: The patient is alert and oriented x3. Appears to be in a good mood. No tremors or rigidity noted. Urinary Catheter Management: Mathew: Cath Placed During This Visit: yes Reason for Continuing Indwelling Catheter: Accurate Measurement of Urinary Output in Critically Ill Patients Urinary Catheter Date of Insertion: 09/18/23 Urinary Catheter Time of Insertion: 06:52 Data 09/19/23 03:52 09/19/23 03:52 Other Labs: Laboratory Last Values WBC 12.65 10^3/uL (3.29-11.43) H 09/19/23 03:52 RBC 4.37 10^6/uL (3.85-5.65) 09/19/23 03:52 Hgb 11.40 g/dL (11.27-16.99) 09/19/23 03:52 Hct 36.7 % (37-53) L 09/19/23 03:52 MCV 84.0 fl (82-101) 09/19/23 03:52 MCH 26.1 pg (27-33) L 09/19/23 03:52 MCHC 31.1 g/dL (30-55) 09/19/23 03:52 RDW 20.2 % (12.1-15.1) H 09/19/23 03:52 Plt Count 344 10^3/cmm (157-399) 09/19/23 03:52 MPV 9.5 fL (7.4-10.4) 09/19/23 03:52 Neut % (Auto) 82.0 % 09/19/23 03:52 Lymph % (Auto) 11.1 % 09/19/23 03:52 Edmunds % (Auto) 5.9 % 09/19/23 03:52 Eos % (Auto) 0.2 % 09/19/23 03:52 Baso % (Auto) 0.2 % 09/19/23 03:52 Neut # (Auto) 10.37 10^3/uL (1.8-7.7) H 09/19/23 03:52 Lymph # (Auto) 1.4 10^3/uL (0.8-4.8) 09/19/23 03:52 Edmunds # (Auto) 0.8 10^3/uL (0.2-0.9) 09/19/23 03:52 Eos # (Auto) 0.0 10^3/uL (0.0-0.8) 09/19/23 03:52 Baso # (Auto) 0.0 10^3/uL (0.0-0.1) 09/19/23 03:52 Nucleated RBC % (auto) 0 % 09/19/23 03:52 Nucleated RBCs # 0.0 /100WBC 09/19/23 03:52 PT 29.20 SECONDS (12.1-14.9) H 09/17/23 16:15 INR 2.64 (0.8-1.2) H 09/17/23 16:15 Sodium 134 mmol/L (136-145) L 09/19/23 03:52 Potassium 4.3 mmol/L (3.5-5.1) 09/19/23 03:52 Chloride 93 mmol/L (98-107) L 09/19/23 03:52 Carbon Dioxide 29 mmol/L (22-29) 09/19/23 03:52 Anion Gap 16.3 (5-19) 09/19/23 03:52 BUN 61 mg/dL (8-23) H 09/19/23 03:52 Creatinine 2.5 mg/dL (0.7-1.2) H 09/19/23 03:52 GFR Calculation 26.2 mL/min (90-130) L 09/19/23 03:52 Glucose 169 mg/dL (65-115) H 09/19/23 03:52 POC Glucose 191 mg/dL (70-110) H 09/19/23 06:10 Calculated Osmolality 299 mOsm/kg (285-295) H 09/19/23 03:52 Lactic Acid 5.1 mmol/L (0.5-2.2) H* 09/18/23 12:34 Lactic Acid (Sepsis) 0.2 mmol/L (0.5-2.2) L 09/18/23 15:22 Lactate 1.8 mmol/L (0.5-2.2) 09/19/23 03:52 Calcium 9.5 mg/dL (8.5-10.5) 09/19/23 03:52 Phosphorus 4.9 mg/dL (2.5-4.5) H 09/18/23 04:59 Magnesium 2.4 mg/dL (1.7-2.3) H 09/18/23 04:59 Total Bilirubin 1.2 mg/dL (0.15-1.2) 09/19/23 03:52 AST 1330 U/L (0-40) H 09/19/23 03:52 ALT 1126 U/L (0-41) H 09/19/23 03:52 Alkaline Phosphatase 197 U/L (40-130) H 09/19/23 03:52 Troponin T Baseline 94 ng/L (0-15) H 09/18/23 04:59 Troponin T 120 Minute 88.74 ng/L (0-15) H 09/18/23 06:49 Delta Troponin T -5.26 ABS# (0-10) L 09/18/23 06:49 Troponin T Hi Sens 6Hr 95.54 ng/L (0-15) H 09/18/23 10:45 Troponin T Hi Sens 6Hr Delta 1.54 ng/L (0-12) 09/18/23 10:45 NT-Pro-B Natriuret Pep 5911 pg/mL (0-125) H 09/17/23 16:15 Total Protein 6.8 g/dL (6.6-8.7) 09/19/23 03:52 Albumin 3.2 g/dL (3.5-5.2) L 09/19/23 03:52 Globulin 3.6 g/dL (1.3-4.6) 09/19/23 03:52 Lipase 22 U/L (13-60) 09/18/23 04:59 Ur Eosinophil Smear 0 (0-0) 09/18/23 15:02 Urine Eosinophils No eosinophils seen 09/18/23 15:02 Ur Random Sodium 74 mmol/L 09/18/23 15:02 Ur Random Potassium 36 mmol/L 09/18/23 15:02 Ur Random Chloride 84 mmol/L 09/18/23 15:02 Urine Creatinine 28 mg/dL (39-259) L 09/18/23 15:02 SARS-CoV-2 Ag (Rapid) negative (Negative) 09/17/23 16:36 Micro: Microbiology 09/17/23 18:07 Blood Culture - Preliminary Blood NEGATIVE TO DATE 09/17/23 18:02 Blood Culture - Preliminary Blood NEGATIVE TO DATE A&P Assessment and plan (1) Acute on chronic systolic heart failure: Patient seems to have end-stage heart disease with recurrent decompensated heart failure of class IV. IV Dobutrex may temporarily improve the decompensation. However medical options are very limited at this point, especially in view of the worsening kidney function. May need to consider upgrading the ICD to a AMBULANCE MECHANIC-D. The QRS duration is 138 ms. Patient is tolerating the Dobutrex 5 mics per KG per minute. I may go up to 7.5 mics per KG per minute. I also may start him on hydralazine 25 mg p.o. 3 times daily. He has a vitals, rhythm, urine output and kidney function need to be closely monitored. (2) Secondary nonischemic congestive cardiomyopathy: Patient has progressive worsening of LV systolic function from 35% to 25% and most recent 10-15 %. He was found to have no significant coronary disease by angiogram in February of this year. May also in need to be evaluated for LVAD. Continue the above measures for the time being (3) Dyslipidemia: Continue on the current medications (4) S/P ICD (internal cardiac defibrillator) procedure: No ICD discharges in the recent past. Continue on the current monitoring. May consider upgrade to AMBULANCE MECHANIC-D (5) Atrial fibrillation: Currently normal sinus rhythm. Continue on the current medications. Continue oral anticoagulation. 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 Will repeat the BMP in the morning. No significant change in the kidney function Qualifiers: Chronic kidney disease stage: unspecified stage Qualified Code(s): N18.9 - Chronic kidney disease, unspecified Plan The other problems are Hyponatremia, improving Leukocytosis, improving Obstructive sleep apnea Morbid obesity History of DVT Possible upper respiratory infection May increase the Dobutrex 7.5 mics per KG per minute for now and keep it for 24 hours.-Total of 48 hours on Dobutrex. Hydralazine 25 mg p.o. 3 times daily BMP in in the morning Close monitoring for arrhythmia Discussed the plan with the patient and his family Attestations Medical Necessity Statement*: Patient requires continued hospital stay for close monitoring and further management Coding Level of Care Code 22876 Diagnoses Acute on chronic systolic heart failure I50.23 Secondary nonischemic congestive cardiomyopathy I42.0 Dyslipidemia E78.5 S/P ICD (internal cardiac defibrillator) procedure Z95.810 Paroxysmal atrial fibrillation I48.0 Atrial fibrillation type: paroxysmal Type 2 diabetes mellitus with other circulatory complication, with long-term current use of insulin E11.59; Z79.4 Diabetes mellitus complication detail: with other circulatory complications Diabetes mellitus complication status: with circulatory complication Diabetes mellitus termite helper insulin use: with senior living use Diabetes mellitus type: type 2 Chronic renal failure N18.9 Chronic kidney disease stage: unspecified stage
[2023-09-19] MEDS: lactulose oral liq 20 gm/30 mL UDC 30 GM PO (10:26)
[2023-09-19 10:36] LABS: Ammonia 20 umol/L (16-60)
[2023-09-19 10:38] LABS: Glucose Point of Care 180 mg/dL (70-110)
--- NOTE | 2023-09-19 11:51 | P.PN_ITS ---
Subjective 2 Subjective: Seen with multiple family numbers at bedside. Patient seems more comfortable today. Sitting comfortably in recliner. As per the family and this patient did not sleep overnight. Appreciate hemodynamics. Documented urine output of around 4500 cc in last 24 hours. Vitals/I&O/Wt Last Vital Signs Temp 97.9 F 09/19/23 11:22 Pulse 94 09/19/23 11:22 Resp 16 09/19/23 11:22 BP 163/81 09/19/23 11:22 Pulse Ox 98 09/19/23 11:22 O2 Del Method Nasal Cannula 09/19/23 11:22 O2 Flow Rate 3 09/19/23 08:39 09/18/23 09/19/23 09/19/23 22:59 06:59 14:59 Intake Total 500 / 980 250 / 1230 118.978 / 118.978 Output Total 3550 / 4150 2150 / 6300 3550 / 3550 Balance -3050 / -3170 -1900 / -5070 -3431.022 / -3431.022 Weight last 48 hrs Weight 127.913 kg Weight 127.913 kg Physical Exam 2 Narrative: General: No acute distress, drowsy but wakes up to follow verbal direction, chronically sick appearing, distended abdomen, elevated JVD HEENT: PERRLA, pupils bilaterally equal and reactive Chest: Normal vesicular breath sounds, no added sounds, decreased air entry bilateral lower zone CVS: S1-S2 regular, pansystolic murmur in fourth intercostal left retrosternal radiating to pericardium, no tachycardia, no gallops, no rubs Abdomen: Soft, nontender, no organomegaly, bowel sounds present Neuro: No focal deficits, no facial deformity, AO x3, power 5/5 in all limbs Extremity: Less mottling of left lower limb. Pulses dopplerable. Urinary Catheter Management: Mathew: Cath Placed During This Visit: yes Reason for Continuing Indwelling Catheter: Accurate Measurement of Urinary Output in Critically Ill Patients Urinary Catheter Date of Insertion: 09/18/23 Urinary Catheter Time of Insertion: 06:52 Data 09/19/23 03:52 09/19/23 03:52 Micro: Microbiology 09/17/23 18:07 Blood Culture - Preliminary Blood NEGATIVE TO DATE 09/17/23 18:02 Blood Culture - Preliminary Blood NEGATIVE TO DATE A&P Assessment and plan (1) Low output heart failure: Ruled in with elevated lactate, features of mottling of left lower limb. Urine output improving after dobutamine drip. Lactate normal today. Wean dobutamine drip at 3 and maintain for next 24 hours. Will wean further depending on clinical response in next 24 hours. Monitor hemodynamics, monitor telemetry. (2) CHF (congestive heart failure): History of nonischemic cardiomyopathy. Repeat echocardiogram done earlier this admission showed EF of 10 to 15% with biatrial enlargement, severely hypokinetic RV, moderate TR, mild MR, mild W[place], dilated IVC. Fluid restriction up to 1 to 1.2 L. Stop metolazone. Continue with Bumex 2 mg IV every 8 hour. Monitor electrolytes every 12 hours. Replace potassium accordingly. Depending on the hemodynamics within next 24 hours we will plan to add guideline directed medical therapy with possible Entresto and spironolactone. Qualifiers: Heart failure chronicity: chronic Heart failure type: unspecified Qualified Code(s): I50.9 - Heart failure, unspecified (3) Transaminitis: Most likely in setting of congestive hepatomegaly along with low output syndrome. Check ammonia levels. Continue to monitor daily for now. Appreciate gallbladder ultrasound done on admission. Check hepatitis panel. (4) Cardiomyopathy: Qualifiers: Cardiomyopathy type: unspecified Qualified Code(s): I42.9 - Cardiomyopathy, unspecified (5) CHF exacerbation: (6) S/P ICD (internal cardiac defibrillator) procedure: (7) Atrial fibrillation: Continue with home dose of amiodarone 200 mg oral daily. Continue with home dose of Xarelto. Telemetry. Holding off on carvedilol as above. Qualifiers: Atrial fibrillation type: paroxysmal Qualified Code(s): I48.0 - Paroxysmal atrial fibrillation (8) Chronic kidney disease: Baseline creatinine around 2.1-2.4. Currently creatinine seems to be at baseline. Strict input charting as above. Medical reconciliation done for nephrotoxic drugs. Cannot rule out cardiorenal syndrome for now. (9) NAKUL (obstructive sleep apnea): (10) Goals of care, counseling/discussion: Discussed in detail with patient's son at bedside. Discussed that unfortunately patient has worsening heart failure with a EF down to 10 to 15% with features of low output heart failure versus cardiogenic shock. Discussed unfortunately for now patient is requiring dobutamine drip with which urine output is improving though he still has worsening liver functions. Discussed about further medical management plan versus possible transfer for LVAD versus hospice. Family for now would want to continue with medical management and see if patient improves clinically. Patient would have not wanted permanent comorbidities and would not want LVAD for now. They want to hold off on hospice for now for trial of medical management. If renal functions worsen or liver functions continue to worsen will need to discuss further regarding goals of care. For now they would want to remain full code and are agreeable with chest compressions, defibrillation, mechanical ventilation if and when needed. Plan Hypoxia: Most likely in setting of congestive heart failure. Mild concern for pneumonia in right lower zone on chest x-ray. Check sputum culture. For now continue with doxycycline. Cardiac diet CODE STATUS: Discussed in detail with the patient. Discussed about severe cardiomyopathy. Patient would like to remain full code for now. Patient's son Aneesh will be the DPOA. Xarelto will be sufficient for DVT prophylaxis Protonix for PUD prophylaxis. Transfer to [facility]. Attestations 2 Medical Necessity Statement*: Requires further hospitalization for management of low cardiac output heart failure in a patient with EF of 10 to 15%, nonischemic cardiomyopathy, transaminitis as patient remains on dobutamine drip. Diagnoses Low output heart failure I50.9 CHF (congestive heart failure) I50.9 Heart failure chronicity: chronic Heart failure type: unspecified Transaminitis R74.01 Cardiomyopathy I42.9 Cardiomyopathy type: unspecified CHF exacerbation I50.9 S/P ICD (internal cardiac defibrillator) procedure Z95.810 Paroxysmal atrial fibrillation I48.0 Atrial fibrillation type: paroxysmal Chronic kidney disease N18.9 NAKUL (obstructive sleep apnea) G47.33 Goals of care, counseling/discussion Z71.89
[2023-09-19 13:30] LABS: Hepatitis A Antibody IgM Non-Reactive (Nonreactive); Hepatitis B Core AB, Total Non-Reactive (Nonreactive); Hepatitis B Surface AB 22.4 (11.5-1000); Hepatitis B Surface Antigen Non-Reactive (Nonreactive); Hepatitis C Virus Antibody Non-Reactive (Nonreactive)
[2023-09-19 16:17] LABS: Anion Gap 16.6 (5-19); Blood Urea Nitrogen 62 mg/dL (8-23); Calcium 9.6 mg/dL (8.5-10.5); Carbon Dioxide 31 mmol/L (22-29); Chloride 93 mmol/L (98-107); Creatinine Clr Calc Pharmacy 46.8345; Glomerular Filtration Rate 30.4 mL/min (90-130); Glucose 286 mg/dL (65-115); Osmolality Calculated 310 mOsm/kg (285-295); Potassium 4.6 mmol/L (3.5-5.1); Sodium 136 mmol/L (136-145)
[2023-09-19 16:44] LABS: Glucose Point of Care 251 mg/dL (70-110)
[2023-09-19] MEDS: bumetanide 0.25 mg/mL SDV 10 mL 1 MG IVP (16:50)
[2023-09-19] MEDS: hyDRALAzine 25 mg Tablet PO (20:21)
[2023-09-19 20:22] LABS: Glucose Point of Care 321 mg/dL (70-110)
[2023-09-19] MEDS: DOBUTamine drip 500 MG/250 ML PREMIX 11.51 MG IV (20:22)
[2023-09-19] MEDS: insulin glargine 100 units/1 mL 20 UNIT SUBCUT (20:31)
[2023-09-20] VITALS (14 sets, daily range): BP systolic 102–137; BP diastolic 69–85; PULSE 86–103; RESP 15–22; TEMP 36.6–36.9; O2SAT 92–98
[2023-09-20] MEDS: bumetanide 0.25 mg/mL SDV 10 mL 1 MG IVP ×3 (02:18→17:46)
[2023-09-20 05:22] LABS: Basophils % 0.3 %; Eosinophils # 0.1 10^3/uL (0.0-0.8); Eosinophils % 0.7 %; Hematocrit 37.9 % (37-53); Lymphocytes # 0.9 10^3/uL (0.8-4.8); Mean Corpuscular HGB Conc 30.6 g/dL (30-55); Mean Corpuscular Hemoglobin 25.8 pg (27-33); Mean Corpuscular Volume 84.4 fl (82-101); Mean Platelet Volume 9.6 fL (7.4-10.4); Monocytes # 0.7 10^3/uL (0.2-0.9); Monocytes % 7.1 %; Neutrophils # 8.12 10^3/uL (1.8-7.7); Neutrophils % 82.5 %; Nucleated Red Blood Cells % 0 %; Platelet Count 300 10^3/cmm (157-399); Red Blood Count 4.49 10^6/uL (3.85-5.65); Red Cell Distribution Width 20.1 % (12.1-15.1); White Blood Count 9.85 10^3/uL (3.29-11.43)
[2023-09-20] MEDS: DOBUTamine drip 500 MG/250 ML PREMIX 11.51 MG IV (05:39)
[2023-09-20] MEDS: cefTRIAXone 1,000 mg SDV 1000 MG IVP (05:39)
[2023-09-20 05:53] LABS: Albumin Level 3.4 g/dL (3.5-5.2); Alkaline Phosphatase 207 U/L (40-130); Anion Gap 15.7 (5-19); Aspartate Amino Transferase 569 U/L (0-40); Blood Urea Nitrogen 60 mg/dL (8-23); Calcium 10.1 mg/dL (8.5-10.5); Carbon Dioxide 33 mmol/L (22-29); Chloride 89 mmol/L (98-107); Creatinine Clr Calc Pharmacy 46.8345; Globulin 3.8 g/dL (1.3-4.6); Glomerular Filtration Rate 30.4 mL/min (90-130); Glucose 195 mg/dL (65-115); Osmolality Calculated 300 mOsm/kg (285-295); Potassium 3.7 mmol/L (3.5-5.1); Sodium 134 mmol/L (136-145); Total Bilirubin 1.2 mg/dL (0.15-1.2); Total Protein 7.2 g/dL (6.6-8.7)
[2023-09-20 06:04] LABS: Alanine Aminotransferase 874 U/L (0-41)
[2023-09-20 06:22] LABS: Glucose Point of Care 206 mg/dL (70-110)
[2023-09-20] MEDS: amiodarone 200 mg Tablet PO (08:19)
[2023-09-20] MEDS: doxycycline 100 mg Tablet PO ×2 (08:19→17:47)
[2023-09-20] MEDS: tamsulosin 0.4 mg Capsule PO (08:19)
[2023-09-20] MEDS: spironolactone 25 mg Tablet PO (08:19)
[2023-09-20] MEDS: rivaroxaban 10 mg Tablet PO (08:19)
[2023-09-20] MEDS: pantoprazole 40 mg SDV IVP (08:20)
[2023-09-20] MEDS: aspirin 81 mg EC Tablet PO (08:20)
[2023-09-20] MEDS: sennosides-docusate Tablet 1 TAB PO (08:20)
[2023-09-20] MEDS: hyDRALAzine 25 mg Tablet PO (08:20)
[2023-09-20] MEDS: insulin lispro 100 unit/1 mL SUBCUT ×4 (08:21→20:44)
[2023-09-20 11:39] LABS: Glucose Point of Care 312 mg/dL (70-110)
--- NOTE | 2023-09-20 13:27 | P.PN_ITS ---
Subjective 2 Subjective: No acute events overnight. Currently on 7.5 of dobutamine drip. Patient sitting up in chair. Seems more comfortable. Having conversation with his family members. Patient is more awake and alert. States he is feeling better. Denies any nausea, vomiting, headache. Vitals/I&O/Wt Last Vital Signs Temp 97.8 F 09/20/23 12:00 Pulse 103 H 09/20/23 12:00 Resp 22 H 09/20/23 12:00 BP 113/77 09/20/23 12:00 Pulse Ox 92 09/20/23 12:00 O2 Del Method Nasal Cannula 09/20/23 12:00 O2 Flow Rate 2 09/20/23 10:00 09/19/23 09/20/23 09/20/23 22:59 06:59 14:59 Intake Total 662.006 / 780.984 428.851 / 1209.835 960 / 960 Output Total 4550 / 8100 1600 / 9700 1750 / 1750 Balance -3887.994 / -7319.016 -1171.149 / -8490.165 -790 / -790 Weight last 48 hrs Weight 127.913 kg Weight 127.913 kg Physical Exam 2 Narrative: General: No acute distress, drowsy but wakes up to follow verbal direction, chronically sick appearing, distended abdomen, elevated JVD HEENT: PERRLA, pupils bilaterally equal and reactive Chest: Normal vesicular breath sounds, no added sounds, decreased air entry bilateral lower zone CVS: S1-S2 regular, pansystolic murmur in fourth intercostal left retrosternal radiating to pericardium, no tachycardia, no gallops, no rubs Abdomen: Soft, nontender, no organomegaly, bowel sounds present Neuro: No focal deficits, no facial deformity, AO x3, power 5/5 in all limbs Extremity: Less mottling of left lower limb. Pulses dopplerable. Urinary Catheter Management: Mathew: Cath Placed During This Visit: yes Reason for Continuing Indwelling Catheter: Other Urinary Catheter Date of Insertion: 09/18/23 Urinary Catheter Time of Insertion: 06:52 Data 09/20/23 04:06 09/20/23 04:06 A&P Assessment and plan (1) Low output heart failure: Ruled in with elevated lactate, features of mottling of left lower limb. Urine output improving after dobutamine drip. Lactate normal today. Wean dobutamine drip at 3 and maintain for next 24 hours. Will wean further depending on clinical response in next 24 hours. Monitor hemodynamics, monitor telemetry. (2) CHF (congestive heart failure): History of nonischemic cardiomyopathy. Repeat echocardiogram done earlier this admission showed EF of 10 to 15% with biatrial enlargement, severely hypokinetic RV, moderate TR, mild MR, mild OH, dilated IVC. Fluid restriction up to 1 to 1.2 L. Stop metolazone. Continue with Bumex 2 mg IV every 8 hour. Monitor electrolytes every 12 hours. Replace potassium accordingly. Depending on the hemodynamics within next 24 hours we will plan to add guideline directed medical therapy with possible Entresto and spironolactone. Qualifiers: Heart failure chronicity: chronic Heart failure type: unspecified Qualified Code(s): I50.9 - Heart failure, unspecified (3) Transaminitis: Most likely in setting of congestive hepatomegaly along with low output syndrome. Check ammonia levels. Continue to monitor daily for now. Appreciate gallbladder ultrasound done on admission. Check hepatitis panel. (4) Cardiomyopathy: Qualifiers: Cardiomyopathy type: unspecified Qualified Code(s): I42.9 - Cardiomyopathy, unspecified (5) Atrial fibrillation: Continue with home dose of amiodarone 200 mg oral daily. Continue with home dose of Xarelto. Telemetry. Holding off on carvedilol as above. Qualifiers: Atrial fibrillation type: paroxysmal Qualified Code(s): I48.0 - Paroxysmal atrial fibrillation (6) Chronic kidney disease: Baseline creatinine around 2.1-2.4. Currently creatinine seems to be at baseline. Strict input charting as above. Medical reconciliation done for nephrotoxic drugs. Cannot rule out cardiorenal syndrome for now. (7) CHF exacerbation: (8) NAKUL (obstructive sleep apnea): (9) Goals of care, counseling/discussion: Discussed in detail with patient's son at bedside. Discussed that unfortunately patient has worsening heart failure with a EF down to 10 to 15% with features of low output heart failure versus cardiogenic shock. Discussed unfortunately for now patient is requiring dobutamine drip with which urine output is improving though he still has worsening liver functions. Discussed about further medical management plan versus possible transfer for LVAD versus hospice. Family for now would want to continue with medical management and see if patient improves clinically. Patient would have not wanted permanent comorbidities and would not want LVAD for now. They want to hold off on hospice for now for trial of medical management. If renal functions worsen or liver functions continue to worsen will need to discuss further regarding goals of care. For now they would want to remain full code and are agreeable with chest compressions, defibrillation, mechanical ventilation if and when needed. (10) S/P ICD (internal cardiac defibrillator) procedure: Plan Hypoxia: Most likely in setting of congestive heart failure. Mild concern for pneumonia in right lower zone on chest x-ray. Check sputum culture. For now continue with doxycycline. Cardiac diet CODE STATUS: Discussed in detail with the patient. Discussed about severe cardiomyopathy. Patient would like to remain full code for now. Patient's son Aneesh will be the DPOA. Xarelto will be sufficient for DVT prophylaxis Protonix for PUD prophylaxis. Plan for the day: Continue with dobutamine drip for overall 48 hours then will plan to wean off within 3 to 4 hours while monitoring for hemodynamics. Continue to monitor for arrhythmia and hypotension. Continue with hydralazine 25 mg 3 times a day. To be withheld for systolic blood pressure of less than 130 mmHg. Patient developing mild contraction alkalosis. Overall around 15 L negative. Switch to Bumex 1 mg oral twice daily. Continue with spironolactone. Change insulin sliding scale to ACHS. Increase Lantus to 25 units nightly. Monitor BMP every 12 hourly. Transaminitis improving. Continue to monitor daily. Continue to hold off on citalopram for now. Attestations 2 Medical Necessity Statement*: Requires further hospitalization for management of low output heart failure, cardiogenic shock in a patient with nonischemic cardiomyopathy, EF of 10% on dobutamine drip CKD, transaminitis Diagnoses Low output heart failure I50.9 CHF (congestive heart failure) I50.9 Heart failure chronicity: chronic Heart failure type: unspecified Transaminitis R74.01 Cardiomyopathy I42.9 Cardiomyopathy type: unspecified Paroxysmal atrial fibrillation I48.0 Atrial fibrillation type: paroxysmal Chronic kidney disease N18.9 CHF exacerbation I50.9 NAKUL (obstructive sleep apnea) G47.33 Goals of care, counseling/discussion Z71.89 S/P ICD (internal cardiac defibrillator) procedure Z95.810
--- NOTE | 2023-09-20 14:14 | PC.NURSE ---
the charting on this patient is incorrect. Rate has been at 7.5 this entire time and was only told by Brittany to decrease the rate by 2.5 at 1400 on 09/20/23. Currently charting the rate correctly as 5/mcg/hr, which reflects the pump and verbal orders given by Dr. Soto. Current patient blood pressure is 134/83.
[2023-09-20] MEDS: DOBUTamine drip 500 MG/250 ML PREMIX 19.19 MG IV (14:29)
--- NOTE | 2023-09-20 15:02 | PC.NURSE ---
Patient's dobutamin titrated to 5mcg/hr. Per Dr. Soto titrate 2.5 every hour if tolerated. Plan communicated with patient and family member corrected nurse saying no, he said would come off the drip at 1400 tomorrow, not in a couple hours . Nurse clarified with Dr. Soto and is correct; titrate 2.5mcg/hr if tolerated. Measure output and blood pressure each hour.
[2023-09-20 15:36] LABS: Anion Gap 18.1 (5-19); Blood Urea Nitrogen 60 mg/dL (8-23); Calcium 9.5 mg/dL (8.5-10.5); Carbon Dioxide 30 mmol/L (22-29); Chloride 88 mmol/L (98-107); Glomerular Filtration Rate 32.1 mL/min (90-130); Glucose 353 mg/dL (65-115); Osmolality Calculated 305 mOsm/kg (285-295); Potassium 4.1 mmol/L (3.5-5.1); Sodium 132 mmol/L (136-145)
[2023-09-20 15:52] LABS: Creatinine Clr Calc Pharmacy 49.0647
[2023-09-20] MEDS: acetaminophen 500 mg Tablet PO (16:02)
[2023-09-20 16:53] LABS: Glucose Point of Care 315 mg/dL (70-110)
[2023-09-20 20:37] LABS: Glucose Point of Care 392 mg/dL (70-110)
[2023-09-20] MEDS: polyethylene glycol 3350 Pkt 17 gm PO (20:43)
[2023-09-20] MEDS: insulin glargine 100 units/1 mL 25 UNIT SUBCUT (20:45)
[2023-09-21] VITALS (9 sets, daily range): BP systolic 93–114; BP diastolic 61–81; PULSE 82–95; RESP 14–19; TEMP 36.6–36.9; O2SAT 90–96
[2023-09-21 04:15] LABS: Basophils % 0.4 %; Eosinophils # 0.1 10^3/uL (0.0-0.8); Eosinophils % 1.2 %; Hematocrit 38.3 % (37-53); Lymphocytes # 1.7 10^3/uL (0.8-4.8); Lymphocytes % 17.7 %; Mean Corpuscular HGB Conc 30.3 g/dL (30-55); Mean Corpuscular Hemoglobin 25.3 pg (27-33); Mean Corpuscular Volume 83.6 fl (82-101); Mean Platelet Volume 9.1 fL (7.4-10.4); Monocytes # 0.9 10^3/uL (0.2-0.9); Neutrophils # 6.58 10^3/uL (1.8-7.7); Neutrophils % 70.4 %; Nucleated Red Blood Cells % 0 %; Platelet Count 328 10^3/cmm (157-399); Red Blood Count 4.58 10^6/uL (3.85-5.65); White Blood Count 9.36 10^3/uL (3.29-11.43)
[2023-09-21 05:56] LABS: Albumin Level 3.4 g/dL (3.5-5.2); Alkaline Phosphatase 217 U/L (40-130); Aspartate Amino Transferase 368 U/L (0-40); Blood Urea Nitrogen 64 mg/dL (8-23); Calcium 9.6 mg/dL (8.5-10.5); Carbon Dioxide 31 mmol/L (22-29); Creatinine Clr Calc Pharmacy 42.9316; Glomerular Filtration Rate 27.5 mL/min (90-130); Glucose 204 mg/dL (65-115); Total Bilirubin 0.9 mg/dL (0.15-1.2); Total Protein 7.4 g/dL (6.6-8.7)
[2023-09-21] MEDS: cefTRIAXone 1,000 mg SDV 1000 MG IVP (05:56)
[2023-09-21 06:07] LABS: Alanine Aminotransferase 740 U/L (0-41)
[2023-09-21 06:32] LABS: Glucose Point of Care 240 mg/dL (70-110)
[2023-09-21 06:41] LABS: Anion Gap 17.7 (5-19); Chloride 89 mmol/L (98-107); Osmolality Calculated 302 mOsm/kg (285-295); Potassium 3.7 mmol/L (3.5-5.1); Sodium 134 mmol/L (136-145)
[2023-09-21] MEDS: aspirin 81 mg EC Tablet PO (08:24)
[2023-09-21] MEDS: rivaroxaban 10 mg Tablet PO (08:24)
[2023-09-21] MEDS: tamsulosin 0.4 mg Capsule PO (08:24)
[2023-09-21] MEDS: amiodarone 200 mg Tablet PO (08:25)
[2023-09-21] MEDS: doxycycline 100 mg Tablet PO ×2 (08:25→17:36)
[2023-09-21] MEDS: spironolactone 25 mg Tablet PO (08:26)
[2023-09-21] MEDS: pantoprazole 40 mg SDV IVP (08:26)
[2023-09-21] MEDS: sennosides-docusate Tablet 1 TAB PO (08:26)
[2023-09-21] MEDS: bumetanide 0.25 mg/mL SDV 10 mL 1 MG IVP ×2 (08:27→17:35)
[2023-09-21] MEDS: insulin lispro 100 unit/1 mL SUBCUT ×4 (08:28→20:47)
[2023-09-21 11:17] LABS: Glucose Point of Care 341 mg/dL (70-110)
--- NOTE | 2023-09-21 12:37 | P.PN_ITS ---
Subjective 2 Subjective: No acute events overnight. Dobutamine drip stopped yesterday evening. Patient continues to remain awake and alert. Family at bedside. He states he is feeling better. Breathing better. Denies any nausea vomiting, headache. As per family in the patient's appetite has been improving. As per patient he is overall feeling a lot better. Appreciate vitals. Vitals/I&O/Wt Last Vital Signs Temp 97.8 F 09/21/23 11:44 Pulse 86 09/21/23 11:44 Resp 19 H 09/21/23 11:44 BP 97/81 09/21/23 11:44 Pulse Ox 94 09/21/23 11:44 O2 Del Method Room Air 09/21/23 11:44 O2 Flow Rate 2 09/20/23 10:00 09/20/23 09/21/23 09/21/23 22:59 06:59 14:59 Intake Total 323.503 / 1387.607 240 / 240 Output Total 1350 / 3290 550 / 3840 Balance -1026.497 / -1902.393 -550 / -2452.393 240 / 240 Weight last 48 hrs Weight 127.913 kg Physical Exam 2 Narrative: General: No acute distress, drowsy but wakes up to follow verbal direction, chronically sick appearing, distended abdomen, elevated JVD HEENT: PERRLA, pupils bilaterally equal and reactive Chest: Normal vesicular breath sounds, no added sounds, decreased air entry bilateral lower zone CVS: S1-S2 regular, pansystolic murmur in fourth intercostal left retrosternal radiating to pericardium, no tachycardia, no gallops, no rubs Abdomen: Soft, nontender, no organomegaly, bowel sounds present Neuro: No focal deficits, no facial deformity, AO x3, power 5/5 in all limbs Extremity: Less mottling of left lower limb. Pulses dopplerable. Urinary Catheter Management: Mathew: Cath Placed During This Visit: yes Reason for Continuing Indwelling Catheter: Other Urinary Catheter Date of Insertion: 09/18/23 Urinary Catheter Time of Insertion: 06:52 Data 09/21/23 03:26 09/21/23 04:06 A&P Assessment and plan (1) Low output heart failure: Ruled in with elevated lactate, features of mottling of left lower limb. Urine output improving after dobutamine drip. Lactate normal today. Dobutamine weaned off on 09/19. Blood pressures on the softer side today. Start on midodrine 5 mg 3 times a day. Monitor hemodynamics, monitor telemetry. (2) CHF (congestive heart failure): History of nonischemic cardiomyopathy. Repeat echocardiogram done earlier this admission showed EF of 10 to 15% with biatrial enlargement, severely hypokinetic RV, moderate TR, mild MR, mild OK, dilated IVC. Fluid restriction up to 1.2 L. Continue with Bumex 1 mg every 12 hourly, spironolactone 25 mg oral daily. Renal functions have remained stable. Starting on midodrine as above. Monitor electrolytes every 12 hours. Replace potassium accordingly. Depending on the hemodynamics within next 24 hours we will plan to add guideline directed medical therapy with possible Entresto and spironolactone. Qualifiers: Heart failure chronicity: chronic Heart failure type: unspecified Qualified Code(s): I50.9 - Heart failure, unspecified (3) Transaminitis: Improving. Most likely in setting of congestive hepatomegaly along with low output syndrome. Negative hepatitis panel. Continue to monitor daily for now. Appreciate gallbladder ultrasound done on admission. (4) Cardiomyopathy: Qualifiers: Cardiomyopathy type: unspecified Qualified Code(s): I42.9 - Cardiomyopathy, unspecified (5) Atrial fibrillation: Continue with home dose of amiodarone 200 mg oral daily. Continue with home dose of Xarelto. Telemetry. Holding off on carvedilol as above. Qualifiers: Atrial fibrillation type: paroxysmal Qualified Code(s): I48.0 - Paroxysmal atrial fibrillation (6) Chronic kidney disease: Baseline creatinine around 2.1-2.4. Currently creatinine seems to be at baseline. Strict input charting as above. Medical reconciliation done for nephrotoxic drugs. Cannot rule out cardiorenal syndrome for now. (7) CHF exacerbation: (8) NAKUL (obstructive sleep apnea): (9) Goals of care, counseling/discussion: Discussed in detail with patient's son at bedside. Discussed that unfortunately patient has worsening heart failure with a EF down to 10 to 15% with features of low output heart failure versus cardiogenic shock. Discussed unfortunately for now patient is requiring dobutamine drip with which urine output is improving though he still has worsening liver functions. Discussed about further medical management plan versus possible transfer for LVAD versus hospice. Family for now would want to continue with medical management and see if patient improves clinically. Patient would have not wanted permanent comorbidities and would not want LVAD for now. They want to hold off on hospice for now for trial of medical management. If renal functions worsen or liver functions continue to worsen will need to discuss further regarding goals of care. For now they would want to remain full code and are agreeable with chest compressions, defibrillation, mechanical ventilation if and when needed. (10) S/P ICD (internal cardiac defibrillator) procedure: Plan Hypoxia: Resolved. Most likely in setting of congestive heart failure. Mild concern for pneumonia in right lower zone on chest x-ray. Check sputum culture. For now continue with doxycycline and ceftriaxone to finish a 5-day course. Type 2 diabetes mellitus: Takes Lantus 25 units twice daily along with sliding scale. Blood sugars elevated. Change Lantus to twice daily. Continue with high-dose insulin sliding basis. Cardiac diet CODE STATUS: Discussed in detail with the patient. Discussed about severe cardiomyopathy. Patient would like to remain full code for now. Patient's son Aneesh will be the DPOA. Xarelto will be sufficient for DVT prophylaxis Protonix for PUD prophylaxis. Physical therapy evaluation. Attestations 2 Medical Necessity Statement*: Requires further hospitalization for management of low output congestive heart failure, cardiogenic shock in setting of nonischemic cardiomyopathy with EF of 10 to 15% Diagnoses Low output heart failure I50.9 CHF (congestive heart failure) I50.9 Heart failure chronicity: chronic Heart failure type: unspecified Transaminitis R74.01 Cardiomyopathy I42.9 Cardiomyopathy type: unspecified Paroxysmal atrial fibrillation I48.0 Atrial fibrillation type: paroxysmal Chronic kidney disease N18.9 CHF exacerbation I50.9 NAKUL (obstructive sleep apnea) G47.33 Goals of care, counseling/discussion Z71.89 S/P ICD (internal cardiac defibrillator) procedure Z95.810
[2023-09-21] MEDS: midodrine 5 mg TABLET PO ×3 (12:45→20:45)
--- NOTE | 2023-09-21 17:02 | P.PN_ITS ---
Subjective 2 Subjective: Mr. Reyes, 62-year-old male patient with a severe cardiomyopathy, clinically and hemodynamically he is more stable today. Off dobutamine infusion since yesterday. Currently he is resting comfortably with no chest pain. No resting shortness of air. He claims to have less shortness of air. I note his creatinine is now 2.4, and AST ALT although elevated however have come down significantly since admission.. He is maintaining blood pressure off the dobutamine in the range of 90-110 systolic. Overall he is much more stable clinically and and more comfortable state. Vitals/I&O/Wt Last Vital Signs Temp 97.8 F 09/21/23 16:00 Pulse 82 09/21/23 16:24 Resp 16 09/21/23 16:00 BP 114/79 09/21/23 16:00 Pulse Ox 90 09/21/23 16:00 O2 Del Method Room Air 09/21/23 16:00 O2 Flow Rate 2 09/20/23 10:00 09/21/23 09/21/23 09/21/23 06:59 14:59 22:59 Intake Total 300 / 300 Output Total 550 / 3840 800 / 800 400 / 1200 Balance -550 / -2452.393 -500 / -500 -400 / -900 Weight last 48 hrs Weight 282 lb Physical Exam 2 Const: COMMON NORMALS: no acute distress HENMT: COMMON NORMALS: normocephalic HEAD & SCALP: normocephalic Resp: OTHER: Good air entry bilaterally, minimal rales at the bases. Cardio: COMMON NORMALS: S1 normal heart sound present and S2 normal heart sound present JUGULAR VENOUS DISTENTION: no JVD HEART SOUNDS: S1 normal heart sound present, S2 normal heart sound present and Murmur heart sound present OTHER: Normal first and second heart sound and there is a mild systolic murmur. GI: OTHER: Soft nontender. Bowel sounds audible Extremity: OTHER: Unremarkable Skin: OTHER: Warm and dry. Urinary Catheter Management: Mathew: Cath Placed During This Visit: yes Reason for Continuing Indwelling Catheter: Other Urinary Catheter Date of Insertion: 09/18/23 Urinary Catheter Time of Insertion: 06:52 Data 09/21/23 03:26 09/21/23 04:06 A&P Assessment and plan (1) Low output heart failure: (2) Acute on chronic systolic heart failure: (3) Chronic kidney disease: Plan This is a 61-year-old male patient with severe cardiomyopathy, admitted with acute on chronic heart failure, now feels much better. He is off dobutamine infusion. He is holding his blood pressure currently in the range of 90-110 systolic. No angina or any arrhythmia noted. Recommendation: I reviewed his current medication, he is on appropriate medication. I recommend to continue the same. I did not restart him on sacubitril because of slight further impairment of kidney functions. Attestations 2 Medical Necessity Statement*: Acute on chronic congestive heart failure Severe cardiomyopathy Coding Level of Care Code 01388 Diagnoses Low output heart failure I50.9 Acute on chronic systolic heart failure I50.23 Chronic kidney disease N18.9
[2023-09-21 17:08] LABS: Glucose Point of Care 474 mg/dL (70-110)
[2023-09-21] MEDS: insulin glargine 100 units/1 mL 25 UNIT SUBCUT (17:36)
[2023-09-21 20:13] LABS: Glucose Point of Care 401 mg/dL (70-110)
[2023-09-21] MEDS: lactulose oral liq 20 gm/30 mL UDC 10 GM PO (20:47)
[2023-09-22] VITALS (11 sets, daily range): BP systolic 99–133; BP diastolic 59–95; PULSE 74–100; RESP 13–24; TEMP 36.4–36.9; O2SAT 93–98
[2023-09-22 04:21] LABS: Basophils # 0.1 10^3/uL (0.0-0.1); Basophils % 0.5 %; Eosinophils # 0.1 10^3/uL (0.0-0.8); Eosinophils % 0.8 %; Hematocrit 36.2 % (37-53); Lymphocytes # 1.6 10^3/uL (0.8-4.8); Lymphocytes % 15.9 %; Mean Corpuscular HGB Conc 30.4 g/dL (30-55); Mean Corpuscular Hemoglobin 25.5 pg (27-33); Mean Platelet Volume 10.1 fL (7.4-10.4); Monocytes % 9.5 %; Neutrophils # 7.38 10^3/uL (1.8-7.7); Neutrophils % 72.7 %; Nucleated Red Blood Cells % 0 %; Platelet Count 339 10^3/cmm (157-399); Red Blood Count 4.31 10^6/uL (3.85-5.65); White Blood Count 10.16 10^3/uL (3.29-11.43)
[2023-09-22 04:41] LABS: Alanine Aminotransferase 539 U/L (0-41); Albumin Level 3.4 g/dL (3.5-5.2); Alkaline Phosphatase 224 U/L (40-130); Anion Gap 16.5 (5-19); Aspartate Amino Transferase 200 U/L (0-40); Blood Urea Nitrogen 65 mg/dL (8-23); Calcium 9.4 mg/dL (8.5-10.5); Carbon Dioxide 30 mmol/L (22-29); Chloride 88 mmol/L (98-107); Creatinine Clr Calc Pharmacy 42.9316; Glomerular Filtration Rate 27.5 mL/min (90-130); Glucose 297 mg/dL (65-115); Osmolality Calculated 302 mOsm/kg (285-295); Potassium 3.5 mmol/L (3.5-5.1); Sodium 131 mmol/L (136-145); Total Bilirubin 0.8 mg/dL (0.15-1.2); Total Protein 7.4 g/dL (6.6-8.7)
[2023-09-22] MEDS: cefTRIAXone 1,000 mg SDV 1000 MG IVP (05:44)
[2023-09-22 06:28] LABS: Glucose Point of Care 440 mg/dL (70-110)
--- NOTE | 2023-09-22 08:14 | P.PN_ITS ---
Subjective 2 Subjective: Patient feeling better. No chest pain. Vitals/I&O/Wt Last Vital Signs Temp 98.0 F 09/22/23 07:40 Pulse 88 09/22/23 07:40 Resp 21 H 09/22/23 07:40 BP 130/76 09/22/23 07:40 Pulse Ox 93 09/22/23 07:40 O2 Del Method Room Air 09/22/23 07:40 O2 Flow Rate 2 09/20/23 10:00 09/21/23 09/22/23 09/22/23 22:59 06:59 14:59 Intake Total 480 / 780 Output Total 1850 / 2650 100 / 2750 Balance -1370 / -1870 -100 / -1970 Weight last 48 hrs Weight 282 lb Physical Exam 2 Narrative: GENERAL: Patient is alert, awake and oriented x3. [] NECK: No jugular vein distension. [] HEENT: No cyanosis. No icterus. No pallor. [] HEART: Regular S1 and S2. No murmur, rub or gallop. [] LUNGS: Mild crakcles bilaterally CENTRAL NERVOUS SYSTEM: Grossly nonfocal. [] EXTREMITIES: Lower extremities with 1+ edema bilaterally. Urinary Catheter Management: Mathew: Cath Placed During This Visit: yes Reason for Continuing Indwelling Catheter: Other Urinary Catheter Date of Insertion: 09/18/23 Urinary Catheter Time of Insertion: 06:52 Data 09/23/23 03:42 09/23/23 03:42 A&P Assessment and plan (1) Acute on chronic systolic heart failure: (2) Secondary nonischemic congestive cardiomyopathy: (3) Dyslipidemia: (4) S/P ICD (internal cardiac defibrillator) procedure: (5) Atrial fibrillation: Qualifiers: Atrial fibrillation type: paroxysmal Qualified Code(s): I48.0 - Paroxysmal atrial fibrillation (6) Diabetes: Qualifiers: Diabetes mellitus complication detail: with other circulatory complications Diabetes mellitus complication status: with circulatory complication Diabetes mellitus long-term insulin use: with long-term use D iabetes mellitus type: type 2 Qualified Code(s): E11.59 - Type 2 diabetes mellitus with other circulatory complications; Z79.4 - detention (current) use of insulin (7) Chronic renal failure: Qualifiers: Chronic kidney disease stage: unspecified stage Qualified Code(s): N 18.9 - Chronic kidney disease, unspecified Plan Patient's condition is improving. Continue IV Bumex 1 mg twice daily. Close I&O's. Close monitoring of renal function. Continue Coreg. Patient will benefit from [employer]ETING [employer]NAGER upgrade. As outpatient we will send referral to tertiary care center for evaluation for SALES AND MARKETING MANAGER-D upgrade and advanced heart failure evaluation. Thank you for involving us with care of this patient. We will continue to follow. Please call with questions. Attestations 2 Medical Necessity Statement*: Care expected to cross 2 midnights. Coding Level of Care Code Acute Code for Chg Fwd Diagnoses Acute on chronic systolic heart failure I50.23 Secondary nonischemic congestive cardiomyopathy I42.0 Dyslipidemia E78.5 S/P ICD (internal cardiac defibrillator) procedure Z95.810 Paroxysmal atrial fibrillation I48.0 Atrial fibrillation type: paroxysmal Type 2 diabetes mellitus with other circulatory complication, with long-term current use of insulin E11.59; Z79.4 Diabetes mellitus complication detail: with other circulatory complications Diabetes mellitus complication status: with circulatory complication Diabetes mellitus long-term insulin use: with long-term use Diabetes mellitus type: type 2 Chronic renal failure N18.9 Chronic kidney disease stage: unspecified stage
[2023-09-22] MEDS: insulin glargine 100 units/1 mL 25 UNIT SUBCUT ×2 (09:09→18:02)
[2023-09-22] MEDS: insulin lispro 100 unit/1 mL SUBCUT ×4 (09:09→20:24)
[2023-09-22] MEDS: sennosides-docusate Tablet 1 TAB PO (09:10)
[2023-09-22] MEDS: aspirin 81 mg EC Tablet PO (09:10)
[2023-09-22] MEDS: doxycycline 100 mg Tablet PO ×2 (09:10→18:02)
[2023-09-22] MEDS: midodrine 5 mg TABLET PO ×3 (09:10→20:25)
[2023-09-22] MEDS: rivaroxaban 10 mg Tablet PO (09:10)
[2023-09-22] MEDS: spironolactone 25 mg Tablet PO (09:10)
[2023-09-22] MEDS: tamsulosin 0.4 mg Capsule PO (09:10)
[2023-09-22] MEDS: amiodarone 200 mg Tablet PO (09:10)
[2023-09-22] MEDS: bumetanide 0.25 mg/mL SDV 10 mL 1 MG IVP ×2 (09:10→18:02)
[2023-09-22] MEDS: pantoprazole 40 mg SDV IVP (09:11)
--- NOTE | 2023-09-22 09:37 | PC.SOCIAL ---
IMM Update Pg. 2 of IMM updated. Initialed, dated, and timed. Copy provided at bedside.
[2023-09-22 12:00] LABS: Glucose Point of Care 530 mg/dL (70-110)
--- NOTE | 2023-09-22 12:05 | PC.NURSE ---
Physician notified regarding patients Blood sugar of 530. Orders received to administer 22units of regular insulin
[2023-09-22 17:13] LABS: Glucose Point of Care 346 mg/dL (70-110)
--- NOTE | 2023-09-22 20:08 | P.PN_ITS ---
Vitals/I&O/Wt Last Vital Signs Temp 97.6 F 09/22/23 16:52 Pulse 88 09/22/23 16:52 Resp 15 09/22/23 16:52 BP 99/81 09/22/23 16:52 Pulse Ox 96 09/22/23 16:06 O2 Del Method Room Air 09/22/23 11:48 O2 Flow Rate 2 09/20/23 10:00 09/22/23 09/22/23 09/22/23 06:59 14:59 22:59 Intake Total 236 / 236 120 / 356 Output Total 100 / 2750 1500 / 1500 1100 / 2600 Balance -100 / -1970 -1264 / -1264 -980 / -2244 Weight last 48 hrs Weight 127.913 kg Physical Exam 2 Const: COMMON NORMALS: patient oriented x3 and alert GENERAL APPEARANCE: c ooperative ORIENTATION/CONSCIOUSNESS: Yes awake HENMT: COMMON NORMALS: oropharynx normal Neck/C-Spine: COMMON NORMALS: no JVD Resp: COMMON NORMALS: normal respiratory effort and clear to auscultation bilaterally AUSCULTATION: clear to auscultation bilaterally Cardio: COMMON NORMALS: no JVD, regular rhythm, S1 normal heart sound present, S2 normal heart sound present and No murmurs present (Cardio) RHYTHM: regular rhythm HEART SOUNDS: S1 normal heart sound present and S2 normal heart sound present GI: COMMON NORMALS: Normal to inspection, nondistended, normoactive bowel sounds present, Soft to palpation and non-tender PALPATION: Yes Soft to palpation Extremity: COMMON NORMALS: no joint enlargement GENERAL: Yes edema Neuro: COMMON NORMALS: patient oriented x3 and moves all extremities S ENSORIUM/ORIENTATION: Yes alert Skin: COMMON NORMALS: no rashes or lesions noted GENERAL SKIN EXAM: no rashes or lesions noted Urinary Catheter Management: Mathew: Cath Placed During This Visit: yes Reason for Continuing Indwelling Catheter: Other Urinary Catheter Date of Insertion: 09/18/23 Urinary Catheter Time of Insertion: 06:52 Data 09/22/23 03:40 09/22/23 03:40 Micro: Microbiology 09/17/23 18:07 Blood Culture - Final Blood NO GROWTH AFTER 5 DAYS 09/17/23 18:02 Blood Culture - Final Blood NO GROWTH AFTER 5 DAYS A&P Assessment and plan (1) Low output heart failure: With improvement. Ruled in with elevated lactate, features of mottling of left lower limb. midodrine 5 mg 3 times a day. Monitor hemodynamics, monitor telemetry. (2) CHF (congestive heart failure): Reviewed vitals, CBC, CMP. Reviewed blood culture. Reviewed cardiology note, discussed with rod greaser. Discontinue dobutamine drip. Continue diuretics, bumetanide IV twice daily. Monitor for risk of electrolyte deficiency, DAYANNA. Reassess. Continue spironolactone for now, blood pressure softer this afternoon 99/81, hold in case of hypotension. Continue midodrine 5 mg p.o. 3 times daily. Reassess volume status. History of nonischemic cardiomyopathy. Repeat echocardiogram done earlier this admission showed EF of 10 to 15% with biatrial enlargement, severely hypokinetic RV, moderate TR, mild MR, mild OK, dilated IVC. Fluid restriction up to 1.2 L. Continue with Bumex 1 mg every 12 hourly, spironolactone 25 mg oral daily. Renal functions have remained stable. Starting on midodrine as above. Monitor electrolytes every 12 hours. Replace potassium accordingly. Depending on the hemodynamics within next 24 hours we will plan to add guideline directed medical therapy with possible Entresto and spironolactone. Qualifiers: Heart failure chronicity: chronic Heart failure type: unspecified Qualified Code(s): I50.9 - Heart failure, unspecified (3) Transaminitis: Reviewed CMP, Improving. Reassess. Most likely in setting of congestive hepatomegaly along with low output syndrome. Negative hepatitis panel. Continue to monitor daily for now. Appreciate gallbladder ultrasound done on admission. (4) Cardiomyopathy: Qualifiers: Cardiomyopathy type: unspecified Qualified Code(s): I42.9 - Cardiomyopathy, unspecified (5) Atrial fibrillation: Continue with home dose of amiodarone 200 mg oral daily. Continue with home dose of Xarelto. Telemetry. Holding off on carvedilol as above. Qualifiers: Atrial fibrillation type: paroxysmal Qualified Code(s): I48.0 - Paroxysmal atrial fibrillation (6) Chronic kidney disease: Baseline creatinine around 2.1-2.4. Currently creatinine seems to be at baseline. Strict input charting as above. Medical reconciliation done for nephrotoxic drugs. Cannot rule out cardiorenal syndrome for now. (7) CHF exacerbation: (8) NAKUL (obstructive sleep apnea): (9) Goals of care, counseling/discussion: (10) S/P ICD (internal cardiac defibrillator) procedure: Plan Hypoxia: Resolved.Discontinue ceftriaxone and doxycycline in the morning. Most likely in setting of congestive heart failure. Mild concern for pneumonia in right lower zone on chest x-ray. Uncollected sputum culture. For now continue with doxycycline and ceftriaxone to finish a 5-day course. Severe hyperglycemia: Severe hyperglycemia today, blood glucose up to 500. Changed to a higher dose for sliding scale insulin this afternoon. Seems he did sneak in some candies. Continue sliding scale insulin, Increase to 27 units on Lantus. Monitor due to risk of hypoglycemia. Type 2 diabetes mellitus: Takes Lantus 25 units twice daily along with sliding scale. Blood sugars elevated. Change Lantus to twice daily. Continue with high-dose insulin sliding basis. Cardiac diet CODE STATUS: Discussed in detail with the patient. Discussed about severe cardiomyopathy. Patient would like to remain full code for now. Patient's son Aneesh will be the DPOA. Xarelto will be sufficient for DVT prophylaxis Protonix for PUD prophylaxis. Physical therapy evaluation. Attestations 2 Medical Necessity Statement*: Continue treatment of congestive heart failure, optimization of diabetes control with severe hyperglycemia. and High MDM includes amount and/or complexity of data reviewed/ordered [ previous or external records, resulted lab(s)/test(s), ordered lab(s)/test(s) and other healthcare professional discussion] and described risk of complication, morbidity or mortality of management as documented Diagnoses Low output heart failure I50.9 CHF (congestive heart failure) I50.9 Heart failure chronicity: chronic Heart failure type: unspecified Transaminitis R74.01 Cardiomyopathy I42.9 Cardiomyopathy type: unspecified Paroxysmal atrial fibrillation I48.0 Atrial fibrillation type: paroxysmal Chronic kidney disease N18.9 CHF exacerbation I50.9 NAKUL (obstructive sleep apnea) G47.33 Goals of care, counseling/discussion Z71.89 S/P ICD (internal cardiac defibrillator) procedure Z95.810
[2023-09-22 20:10] LABS: Glucose Point of Care 338 mg/dL (70-110)
[2023-09-23] VITALS (10 sets, daily range): BP systolic 97–130; BP diastolic 63–88; PULSE 73–98; RESP 15–24; TEMP 36.6–37.1; O2SAT 91–97
[2023-09-23 04:15] LABS: Basophils # 0.1 10^3/uL (0.0-0.1); Basophils % 0.5 %; Eosinophils # 0.1 10^3/uL (0.0-0.8); Eosinophils % 0.8 %; Hematocrit 37.2 % (37-53); Lymphocytes # 1.9 10^3/uL (0.8-4.8); Lymphocytes % 17.3 %; Mean Corpuscular HGB Conc 30.1 g/dL (30-55); Mean Corpuscular Hemoglobin 25.5 pg (27-33); Mean Corpuscular Volume 84.5 fl (82-101); Mean Platelet Volume 9.6 fL (7.4-10.4); Monocytes # 1.1 10^3/uL (0.2-0.9); Monocytes % 9.9 %; Neutrophils # 7.72 10^3/uL (1.8-7.7); Neutrophils % 71.1 %; Nucleated Red Blood Cells % 0 %; Platelet Count 295 10^3/cmm (157-399); Red Cell Distribution Width 19.7 % (12.1-15.1); White Blood Count 10.85 10^3/uL (3.29-11.43)
[2023-09-23 04:42] LABS: Alanine Aminotransferase 384 U/L (0-41); Albumin Level 3.3 g/dL (3.5-5.2); Alkaline Phosphatase 215 U/L (40-130); Anion Gap 15.6 (5-19); Aspartate Amino Transferase 103 U/L (0-40); Blood Urea Nitrogen 67 mg/dL (8-23); Calcium 9.2 mg/dL (8.5-10.5); Carbon Dioxide 30 mmol/L (22-29); Chloride 89 mmol/L (98-107); Creatinine Clr Calc Pharmacy 42.9316; Glomerular Filtration Rate 27.5 mL/min (90-130); Glucose 231 mg/dL (65-115); Osmolality Calculated 299 mOsm/kg (285-295); Potassium 3.6 mmol/L (3.5-5.1); Sodium 131 mmol/L (136-145); Total Bilirubin 0.9 mg/dL (0.15-1.2); Total Protein 7.3 g/dL (6.6-8.7)
[2023-09-23 06:29] LABS: Glucose Point of Care 250 mg/dL (70-110)
--- NOTE | 2023-09-23 07:53 | P.PN_ITS ---
Subjective 2 Subjective: Patient continues to do well. no chest pain. Diuresing well and renal function is stable. Vitals/I&O/Wt Last Vital Signs Temp 98.2 F 09/23/23 04:00 Pulse 84 09/23/23 05:26 Resp 17 09/23/23 04:00 BP 130/88 09/23/23 04:00 Pulse Ox 97 09/23/23 04:00 O2 Del Method Nasal Cannula 09/23/23 04:00 O2 Flow Rate 2 09/20/23 10:00 09/22/23 09/23/23 09/23/23 22:59 06:59 14:59 Intake Total 600 / 836 Output Total 1100 / 2600 500 / 3100 Balance -500 / -1764 -500 / -2264 Weight last 48 hrs Weight 282 lb Weight 282 lb Physical Exam 2 Narrative: GENERAL: Patient is alert, awake and oriented x3. [] NECK: No jugular vein distension. [] HEENT: No cyanosis. No icterus. No pallor. [] HEART: Regular S1 and S2. No murmur, rub or gallop. [] LUNGS: Mild crakcles bilaterally CENTRAL NERVOUS SYSTEM: Grossly nonfocal. [] EXTREMITIES: Lower extremities with 1+ edema bilaterally. Urinary Catheter Management: Mathew: Cath Placed During This Visit: yes Reason for Continuing Indwelling Catheter: Other Urinary Catheter Date of Insertion: 09/18/23 Urinary Catheter Time of Insertion: 06:52 Data 09/24/23 04:26 09/24/23 04:26 Micro: Microbiology 09/17/23 18:07 Blood Culture - Final Blood NO GROWTH AFTER 5 DAYS 09/17/23 18:02 Blood Culture - Final Blood NO GROWTH AFTER 5 DAYS A&P Assessment and plan (1) Acute on chronic systolic heart failure: (2) Secondary nonischemic congestive cardiomyopathy: (3) Dyslipidemia: (4) S/P ICD (internal cardiac defibrillator) procedure: (5) Atrial fibrillation: Qualifiers: Atrial fibrillation type: paroxysmal Qualified Code(s): I48.0 - Paroxysmal atrial fibrillation (6) Diabetes: Qualifiers: Diabetes mellitus complication detail: with other circulatory complications Diabetes mellitus complication status: with circulatory complication Diabetes mellitus termite treater insulin use: with termite treater use D iabetes mellitus type: type 2 Qualified Code(s): E11.59 - Type 2 diabetes mellitus with other circulatory complications; Z79.4 - termite treater (current) use of insulin (7) Chronic renal failure: Qualifiers: Chronic kidney disease stage: unspecified stage Qualified Code(s): N 18.9 - Chronic kidney disease, unspecified Plan Patient continues to diurese well. We will continue with IV diuretics for now. Close I and Os. Monitor renal function. Continue Coreg. Patient will benefit from TELEPHONE COLLECTOR upgrade. As outpatient we will send referral to tertiary care center for evaluation for TELEPHONE COLLECTOR-D upgrade and advanced heart failure evaluation. Thank you for involving us with care of this patient. We will continue to follow. Please call with questions. Attestations 2 Medical Necessity Statement*: Care expected to cross 2 midnights. Coding Level of Care Code Acute Code for Chg Fwd Diagnoses Acute on chronic systolic heart failure I50.23 Secondary nonischemic congestive cardiomyopathy I42.0 Dyslipidemia E78.5 S/P ICD (internal cardiac defibrillator) procedure Z95.810 Paroxysmal atrial fibrillation I48.0 Atrial fibrillation type: paroxysmal Type 2 diabetes mellitus with other circulatory complication, with long-term current use of insulin E11.59; Z79.4 Diabetes mellitus complication detail: with other circulatory complications Diabetes mellitus complication status: with circulatory complication Diabetes mellitus termite treater insulin use: with termite treater use Diabetes mellitus type: type 2 Chronic renal failure N18.9 Chronic kidney disease stage: unspecified stage
[2023-09-23] MEDS: pantoprazole 40 mg SDV IVP (09:31)
[2023-09-23] MEDS: bumetanide 0.25 mg/mL SDV 10 mL 1 MG IVP ×2 (09:31→18:00)
[2023-09-23] MEDS: midodrine 5 mg TABLET PO ×3 (09:32→20:48)
[2023-09-23] MEDS: insulin glargine 100 units/1 mL 27 UNIT SUBCUT (09:32)
[2023-09-23] MEDS: rivaroxaban 10 mg Tablet PO (09:32)
[2023-09-23] MEDS: amiodarone 200 mg Tablet PO (09:32)
[2023-09-23] MEDS: sennosides-docusate Tablet 1 TAB PO (09:32)
[2023-09-23] MEDS: tamsulosin 0.4 mg Capsule PO (09:32)
[2023-09-23] MEDS: aspirin 81 mg EC Tablet PO (09:32)
[2023-09-23] MEDS: insulin lispro 100 unit/1 mL SUBCUT ×4 (09:33→20:47)
[2023-09-23 11:48] LABS: Glucose Point of Care 344 mg/dL (70-110)
[2023-09-23 17:12] LABS: Glucose Point of Care 351 mg/dL (70-110)
[2023-09-23] MEDS: fluticasone nasal spray 16gm Btl 1 SPRAY NASAL (17:59)
[2023-09-23] MEDS: insulin glargine 100 units/1 mL 29 UNIT SUBCUT (18:01)
--- NOTE | 2023-09-23 19:17 | P.PN_ITS ---
Subjective 2 Subjective: He reports overall has been feeling better. Has been having rhinorrhea. Vitals/I&O/Wt Last Vital Signs Temp 98.3 F 09/23/23 16:00 Pulse 81 09/23/23 16:00 Resp 15 09/23/23 16:00 BP 105/74 09/23/23 16:00 Pulse Ox 91 09/23/23 16:00 O2 Del Method Room Air 09/23/23 16:00 O2 Flow Rate 2 09/20/23 10:00 09/23/23 09/23/23 09/23/23 06:59 14:59 22:59 Intake Total 120 / 120 Output Total 500 / 3100 900 / 900 1650 / 2550 Balance -500 / -2264 -780 / -780 -1650 / -2430 Weight last 48 hrs Weight 127.913 kg Weight 127.913 kg Physical Exam 2 Const: COMMON NORMALS: patient oriented x3 and alert GENERAL APPEARANCE: c ooperative ORIENTATION/CONSCIOUSNESS: Yes awake HENMT: COMMON NORMALS: oropharynx normal Neck/C-Spine: COMMON NORMALS: no JVD Resp: COMMON NORMALS: normal respiratory effort and clear to auscultation bilaterally AUSCULTATION: clear to auscultation bilaterally Cardio: COMMON NORMALS: no JVD, regular rhythm, S1 normal heart sound present, S2 normal heart sound present and No murmurs present (Cardio) RHYTHM: regular rhythm HEART SOUNDS: S1 normal heart sound present and S2 normal heart sound present GI: COMMON NORMALS: Normal to inspection, nondistended, normoactive bowel sounds present, Soft to palpation and non-tender PALPATION: Yes Soft to palpation Extremity: COMMON NORMALS: no joint enlargement GENERAL: Yes edema Neuro: COMMON NORMALS: patient oriented x3 and moves all extremities S ENSORIUM/ORIENTATION: Yes alert Skin: COMMON NORMALS: no rashes or lesions noted GENERAL SKIN EXAM: no rashes or lesions noted Urinary Catheter Management: Mathew: Cath Placed During This Visit: yes Reason for Continuing Indwelling Catheter: Other Urinary Catheter Date of Insertion: 09/18/23 Urinary Catheter Time of Insertion: 06:52 Data 09/23/23 03:42 09/23/23 03:42 Micro: Microbiology 09/17/23 18:07 Blood Culture - Final Blood NO GROWTH AFTER 5 DAYS 09/17/23 18:02 Blood Culture - Final Blood NO GROWTH AFTER 5 DAYS A&P Assessment and plan (1) CHF (congestive heart failure): Reviewed vitals, intake and output, in negative balance, blood pressure soft. Reviewed cardiology note. As per discussion with patient has been seen by cardiology and they discussed additional diuresis. Does have persistent edema lower extremities although has been gradually improving. With low blood pressure discussed with him holding spironolactone for now. Continue bumetanide IV. Reassess kidney function, electrolytes With chemistry, magnesium, with risk of deficiency, kidney injury with IV diuretic. Reassess volume status. Discussed with rn case mgr and patient, plan after discharge is for return home. History of nonischemic cardiomyopathy. Repeat echocardiogram done earlier this admission showed EF of 10 to 15% with biatrial enlargement, severely hypokinetic RV, moderate TR, mild MR, mild [place], dilated IVC. Fluid restriction up to 1.2 L. Continue with Bumex 1 mg every 12 hourly, spironolactone 25 mg oral daily. Renal functions have remained stable. Starting on midodrine as above. Monitor electrolytes every 12 hours. Replace potassium accordingly. Depending on the hemodynamics within next 24 hours we will plan to add guideline directed medical therapy with possible Entresto and spironolactone. Qualifiers: Heart failure chronicity: chronic Heart failure type: unspecified Qualified Code(s): I50.9 - Heart failure, unspecified (2) Low output heart failure: With improvement. Ruled in with elevated lactate, features of mottling of left lower limb. midodrine 5 mg 3 times a day. Monitor hemodynamics, monitor telemetry. (3) Transaminitis: Reviewed CMP, continuing to improve. Reassess. Most likely in setting of congestive hepatomegaly along with low output syndrome. Negative hepatitis panel. Continue to monitor daily for now. Appreciate gallbladder ultrasound done on admission. (4) Cardiomyopathy: Qualifiers: Cardiomyopathy type: unspecified Qualified Code(s): I42.9 - Cardiomyopathy, unspecified (5) Atrial fibrillation: Continue with home dose of amiodarone 200 mg oral daily. Continue with home dose of Xarelto. Telemetry. Holding off on carvedilol as above. Qualifiers: Atrial fibrillation type: paroxysmal Qualified Code(s): I48.0 - Paroxysmal atrial fibrillation (6) Chronic kidney disease: Baseline creatinine around 2.1-2.4. Currently creatinine seems to be at baseline. Strict input charting as above. Medical reconciliation done for nephrotoxic drugs. Cannot rule out cardiorenal syndrome for now. (7) CHF exacerbation: (8) NAKUL (obstructive sleep apnea): (9) Goals of care, counseling/discussion: (10) S/P ICD (internal cardiac defibrillator) procedure: Plan Severe hyperglycemia: Again hyperglycemic today on review of Accu-Cheks. Increase Lantus to 29 units twice daily. Continue sliding scale insulin. Reassess Accu-Cheks. Continue consistent carb diet. Monitor for risk of hypoglycemia with escalation of insulin. At home normally on 25 units twice daily. Type 2 diabetes mellitus: Takes Lantus 25 units twice daily along with sliding scale. Blood sugars elevated. Change Lantus to twice daily. Continue with high-dose insulin sliding basis. Hypoxia: Resolved. Completed ceftriaxone and doxycycline Most likely in setting of congestive heart failure. Mild concern for pneumonia in right lower zone on chest x-ray. Uncollected sputum culture. For now continue with doxycycline and ceftriaxone to finish a 5-day course. Cardiac diet CODE STATUS: Discussed in detail with the patient. Discussed about severe cardiomyopathy. Patient would like to remain full code for now. Patient's son Aneesh will be the DPOA. Xarelto will be sufficient for DVT prophylaxis Protonix for PUD prophylaxis. Physical therapy evaluation. Attestations 2 Medical Necessity Statement*: Continue treatment of congestive heart failure, optimization of diabetes control with severe hyperglycemia. and High MDM includes amount and/or complexity of data reviewed/ordered [ previous or external records, resulted lab(s)/test(s), ordered lab(s)/test(s) and other healthcare professional discussion] and described risk of complication, morbidity or mortality of management as documented Diagnoses CHF (congestive heart failure) I50.9 Heart failure chronicity: chronic Heart failure type: unspecified Low output heart failure I50.9 Transaminitis R74.01 Cardiomyopathy I42.9 Cardiomyopathy type: unspecified Paroxysmal atrial fibrillation I48.0 Atrial fibrillation type: paroxysmal Chronic kidney disease N18.9 CHF exacerbation I50.9 NAKUL (obstructive sleep apnea) G47.33 Goals of care, counseling/discussion Z71.89 S/P ICD (internal cardiac defibrillator) procedure Z95.810
[2023-09-23 20:28] LABS: Glucose Point of Care 401 mg/dL (70-110)
[2023-09-23] MEDS: polyethylene glycol 3350 Pkt 17 gm PO (20:47)
[2023-09-24] VITALS (10 sets, daily range): BP systolic 90–124; BP diastolic 62–80; PULSE 88–108; RESP 12–25; TEMP 36.4–36.9; O2SAT 91–95
[2023-09-24 05:19] LABS: Basophils # 0.1 10^3/uL (0.0-0.1); Basophils % 0.6 %; Eosinophils % 0.3 %; Hematocrit 36.3 % (37-53); Lymphocytes # 1.5 10^3/uL (0.8-4.8); Mean Corpuscular HGB Conc 30.9 g/dL (30-55); Mean Corpuscular Hemoglobin 25.4 pg (27-33); Mean Corpuscular Volume 82.3 fl (82-101); Mean Platelet Volume 9.8 fL (7.4-10.4); Monocytes # 1.1 10^3/uL (0.2-0.9); Monocytes % 10.3 %; Neutrophils # 8.01 10^3/uL (1.8-7.7); Neutrophils % 74.3 %; Nucleated Red Blood Cells % 0 %; Platelet Count 309 10^3/cmm (157-399); Red Blood Count 4.41 10^6/uL (3.85-5.65); Red Cell Distribution Width 19.7 % (12.1-15.1); White Blood Count 10.78 10^3/uL (3.29-11.43)
[2023-09-24 05:31] LABS: Alanine Aminotransferase 270 U/L (0-41); Albumin Level 3.2 g/dL (3.5-5.2); Alkaline Phosphatase 186 U/L (40-130); Anion Gap 16.4 (5-19); Aspartate Amino Transferase 59 U/L (0-40); Blood Urea Nitrogen 67 mg/dL (8-23); Calcium 9.2 mg/dL (8.5-10.5); Carbon Dioxide 29 mmol/L (22-29); Chloride 92 mmol/L (98-107); Creatinine Clr Calc Pharmacy 54.2294; Glucose 78 mg/dL (65-115); Osmolality Calculated 296 mOsm/kg (285-295); Potassium 3.4 mmol/L (3.5-5.1); Sodium 134 mmol/L (136-145); Total Bilirubin 1.2 mg/dL (0.15-1.2); Total Protein 7.2 g/dL (6.6-8.7)
[2023-09-24 05:32] LABS: Magnesium 2.4 mg/dL (1.7-2.3)
[2023-09-24 07:04] LABS: Glucose Point of Care 149 mg/dL (70-110)
--- NOTE | 2023-09-24 07:07 | PM.PN ---
Subjective Subjective: Patient is continuing to diurese well. No chest pain Vitals/I&O/Wt Last Vital Signs Temp 98.1 F 09/24/23 04:00 Pulse 89 09/24/23 06:00 Resp 25 H 09/24/23 04:00 BP 124/62 09/24/23 04:00 Pulse Ox 95 09/24/23 04:00 O2 Del Method Room Air 09/24/23 04:00 O2 Flow Rate 2 09/20/23 10:00 09/23/23 09/24/23 09/24/23 22:59 06:59 14:59 Intake Total 200 / 320 100 / 420 Output Total 2850 / 3750 700 / 4450 Balance -2650 / -3430 -600 / -4030 Weight last 48 hrs Weight 276 lb Weight 282 lb Physical Exam Narrative: GENERAL: Patient is alert, awake and oriented x3. [] NECK: No jugular vein distension. [] HEENT: No cyanosis. No icterus. No pallor. [] HEART: Regular S1 and S2. No murmur, rub or gallop. [] LUNGS: Mild crakcles bilaterally CENTRAL NERVOUS SYSTEM: Grossly nonfocal. [] EXTREMITIES: Lower extremities with 1+ edema bilaterally. Urinary Catheter Management: Mathew: Cath Placed During This Visit: yes Reason for Continuing Indwelling Catheter: Other Urinary Catheter Date of Insertion: 09/18/23 Urinary Catheter Time of Insertion: 06:52 Data 09/25/23 03:46 09/25/23 03:46 A&P Assessment and plan (1) Acute on chronic systolic heart failure: (2) Secondary nonischemic congestive cardiomyopathy: (3) Dyslipidemia: (4) S/P ICD (internal cardiac defibrillator) procedure: (5) Atrial fibrillation: Qualifiers: Atrial fibrillation type: paroxysmal Qualified Code(s): I48.0 - Paroxysmal atrial fibrillation (6) Diabetes: Qualifiers: Diabetes mellitus complication detail: with other circulatory complications Diabetes mellitus complication status: with circulatory complication Diabetes mellitus care home insulin use: with director long term care use Diabetes mellitus type: type 2 Qualified Code(s): E11.59 - Type 2 diabetes mellitus with other circulatory complications; Z79.4 - USP (current) use of insulin (7) Chronic renal failure: Qualifiers: Chronic kidney disease stage: unspecified stage Qualified Code(s): N18.9 - Chronic kidney disease, unspecified Plan Continue IV diuresis. Monitor I&O's and renal function. In the next 1 to 2 days will switch to PO diuretics. Continue Coreg. Patient will benefit from OPENING MACHINE CLEANER upgrade. As outpatient we will send referral to tertiary care center for evaluation for OPENING MACHINE CLEANER-D upgrade and advanced heart failure evaluation. Thank you for involving us with care of this patient. We will continue to follow. Please call with questions. Attestations Medical Necessity Statement*: Care expected to cross 2 midnight. Coding Level of Care Code Acute Code for Chg Fwd Diagnoses Acute on chronic systolic heart failure I50.23 Secondary nonischemic congestive cardiomyopathy I42.0 Dyslipidemia E78.5 S/P ICD (internal cardiac defibrillator) procedure Z95.810 Paroxysmal atrial fibrillation I48.0 Atrial fibrillation type: paroxysmal Type 2 diabetes mellitus with other circulatory complication, with long-term current use of insulin E11.59; Z79.4 Diabetes mellitus complication detail: with other circulatory complications Diabetes mellitus complication status: with circulatory complication Diabetes mellitus director long term care insulin use: with director long term care use Diabetes mellitus type: type 2 Chronic renal failure N18.9 Chronic kidney disease stage: unspecified stage
--- NOTE | 2023-09-24 09:14 | PC.SOCIAL ---
IMM Update Pg.2 of IMM updated. Copy provided at bedside.
[2023-09-24] MEDS: polyethylene glycol 3350 Pkt 17 gm PO ×2 (09:16→17:46)
[2023-09-24] MEDS: insulin lispro 100 unit/1 mL SUBCUT ×2 (09:16→13:24)
[2023-09-24] MEDS: fluticasone nasal spray 16gm Btl 1 SPRAY NASAL ×2 (09:16→17:47)
[2023-09-24] MEDS: bumetanide 0.25 mg/mL SDV 10 mL 1 MG IVP ×2 (09:16→17:47)
[2023-09-24] MEDS: pantoprazole 40 mg SDV IVP (09:16)
[2023-09-24] MEDS: insulin glargine 100 units/1 mL 29 UNIT SUBCUT (09:16)
[2023-09-24] MEDS: sennosides-docusate Tablet 1 TAB PO (09:17)
[2023-09-24] MEDS: midodrine 5 mg TABLET PO ×3 (09:17→21:30)
[2023-09-24] MEDS: rivaroxaban 10 mg Tablet PO (09:17)
[2023-09-24] MEDS: tamsulosin 0.4 mg Capsule PO (09:17)
[2023-09-24] MEDS: amiodarone 200 mg Tablet PO (09:17)
[2023-09-24] MEDS: aspirin 81 mg EC Tablet PO (09:17)
[2023-09-24] MEDS: potassium chloride ER 20 mEq Tablet PO (09:20)
[2023-09-24 11:00] LABS: Glucose Point of Care 159 mg/dL (70-110)
--- NOTE | 2023-09-24 16:35 | P.PN_ITS ---
Subjective 2 Subjective: He reports he is doing okay today. Denies any new pain or discomfort. Lower extremity edema has been improving. He tries to reposition frequently as per instructions to reduce pressure from the sacrum. Vitals/I&O/Wt Last Vital Signs Temp 98.1 F 09/24/23 16:00 Pulse 100 09/24/23 16:00 Resp 20 H 09/24/23 16:00 BP 102/80 09/24/23 16:00 Pulse Ox 95 09/24/23 16:00 O2 Del Method Room Air 09/24/23 16:00 O2 Flow Rate 2 09/24/23 09:17 09/24/23 09/24/23 09/24/23 06:59 14:59 22:59 Intake Total 100 / 420 Output Total 700 / 4450 1200 / 1200 Balance -600 / -4030 -1200 / -1200 Weight last 48 hrs Weight 125.191 kg Weight 127.913 kg Physical Exam 2 Narrative: Accompanied by his . Const: COMMON NORMALS: patient oriented x3 and alert GENERAL APPEARANCE: c ooperative ORIENTATION/CONSCIOUSNESS: Yes awake HENMT: COMMON NORMALS: oropharynx normal Neck/C-Spine: COMMON NORMALS: no JVD Resp: COMMON NORMALS: normal respiratory effort and clear to auscultation bilaterally AUSCULTATION: clear to auscultation bilaterally Cardio: COMMON NORMALS: no JVD, regular rhythm, S1 normal heart sound present, S2 normal heart sound present and No murmurs present (Cardio) RHYTHM: regular rhythm HEART SOUNDS: S1 normal heart sound present and S2 normal heart sound present GI: COMMON NORMALS: Normal to inspection, nondistended, normoactive bowel sounds present, Soft to palpation and non-tender PALPATION: Yes Soft to palpation Extremity: COMMON NORMALS: no joint enlargement GENERAL: Yes edema (1+ resolving) Neuro: COMMON NORMALS: patient oriented x3 and moves all extremities S ENSORIUM/ORIENTATION: Yes alert Skin: COMMON NORMALS: no rashes or lesions noted GENERAL SKIN EXAM: no rashes or lesions noted OTHER: Sacrum with somewhat violaceous, minimally disclamation injury, appears to be both moisture and shear injury, is not over a bony prominence, appears to be less likely pressure sore, but pressure injury possible. No fluctuation, no drainage. Urinary Catheter Management: Mathew: Cath Placed During This Visit: yes Reason for Continuing Indwelling Catheter: Other Urinary Catheter Date of Insertion: 09/18/23 Urinary Catheter Time of Insertion: 06:52 Data 09/24/23 04:26 09/24/23 04:26 A&P Assessment and plan (1) CHF (congestive heart failure): Reviewed vitals, intake and output. She is in negative balance. Edema is decreasing. Renal function today on review of BUN, creatinine, with improvement, creatinine at 1.9. Discussed with him mild hypokalemia on review potassium 3.4. Magnesium 1 reviewed 2.4. Discussed with him supplementation with 20 mill colons potassium. 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 Reassess. Monitor electrolytes, renal function with IV diuretics, risk of electro deficiency, kidney injury. Fluid restriction 1.2L. History of nonischemic cardiomyopathy. Repeat echocardiogram done earlier this admission showed EF of 10 to 15% with biatrial enlargement, severely hypokinetic RV, moderate TR, mild MR, mild NM, dilated IVC. Continue with Bumex 1 mg every 12 hourly, spironolactone 25 mg oral daily. Renal functions have remained stable. Starting on midodrine as above. Monitor electrolytes every 12 hours. Replace potassium accordingly. Depending on the hemodynamics within next 24 hours we will plan to add guideline directed medical therapy with possible Entresto and spironolactone. Qualifiers: Heart failure chronicity: chronic Heart failure type: unspecified Qualified Code(s): I50.9 - Heart failure, unspecified (2) Low output heart failure: With improvement. Ruled in with elevated lactate, features of mottling of left lower limb. midodrine 5 mg 3 times a day. Monitor hemodynamics, monitor telemetry. (3) Transaminitis: Reviewed AST, ALT, alk phos. Transaminitis improving. Reassess CMP. Most likely in setting of congestive hepatomegaly along with low output syndrome. Negative hepatitis panel. Continue to monitor daily for now. Appreciate gallbladder ultrasound done on admission. (4) Cardiomyopathy: Qualifiers: Cardiomyopathy type: unspecified Qualified Code(s): I42.9 - Cardiomyopathy, unspecified (5) Atrial fibrillation: Continue with home dose of amiodarone 200 mg oral daily. Continue with home dose of Xarelto. Telemetry. Holding off on carvedilol as above. Qualifiers: Atrial fibrillation type: paroxysmal Qualified Code(s): I48.0 - Paroxysmal atrial fibrillation (6) Chronic kidney disease: Baseline creatinine around 2.1-2.4. Currently creatinine seems to be at baseline. Strict input charting as above. Medical reconciliation done for nephrotoxic drugs. Cannot rule out cardiorenal syndrome for now. (7) CHF exacerbation: (8) NAKUL (obstructive sleep apnea): (9) Goals of care, counseling/discussion: (10) S/P ICD (internal cardiac defibrillator) procedure: Plan Severe hyperglycemia: Reviewed Accu-Cheks, POC glucose down as low as 78 today, will come down on insulin Lantus down to 28 units. Continue sliding scale insulin. Reassess Accu-Cheks. Continue consistent carb diet. Monitor for risk of hypoglycemia with escalation of insulin. At home normally on 25 units twice daily. Type 2 diabetes mellitus: Takes Lantus 25 units twice daily along with sliding scale. Blood sugars elevated. Change Lantus to twice daily. Continue with high-dose insulin sliding basis. Sacral injury: Noted violaceous injury with minimal patchy epithelial loss, moisture injury and shear injury, not over bony prominence, appears less likely pressure injury but cannot be excluded. Continue wound care, reposition frequently. He is aware of offloading pressure as well. Hypoxia: Resolved. Completed ceftriaxone and doxycycline Most likely in setting of congestive heart failure. Mild concern for pneumonia in right lower zone on chest x-ray. Uncollected sputum culture. For now continue with doxycycline and ceftriaxone to finish a 5-day course. Cardiac diet CODE STATUS: Discussed in detail with the patient. Discussed about severe cardiomyopathy. Patient would like to remain full code for now. Patient's son Aneesh will be the DPOA. Xarelto will be sufficient for DVT prophylaxis Protonix for PUD prophylaxis. Physical therapy evaluation. Attestations 2 Medical Necessity Statement*: Continue treatment of congestive heart failure, optimization of diabetes control with severe hyperglycemia. and High MDM includes amount and/or complexity of data reviewed/ordered [ resulted lab(s)/test(s), ordered lab(s)/test(s) and other healthcare professional discussion] and described risk of complication, morbidity or mortality of management as documented Diagnoses CHF (congestive heart failure) I50.9 Heart failure chronicity: chronic Heart failure type: unspecified Low output heart failure I50.9 Transaminitis R74.01 Cardiomyopathy I42.9 Cardiomyopathy type: unspecified Paroxysmal atrial fibrillation I48.0 Atrial fibrillation type: paroxysmal Chronic kidney disease N18.9 CHF exacerbation I50.9 NAKUL (obstructive sleep apnea) G47.33 Goals of care, counseling/discussion Z71.89 S/P ICD (internal cardiac defibrillator) procedure Z95.810
[2023-09-24 17:05] LABS: Glucose Point of Care 120 mg/dL (70-110)
[2023-09-24] MEDS: insulin glargine 100 units/1 mL 28 UNIT SUBCUT (17:47)
[2023-09-24 20:56] LABS: Glucose Point of Care 115 mg/dL (70-110)
[2023-09-25] VITALS (10 sets, daily range): BP systolic 107–132; BP diastolic 69–96; PULSE 90–106; RESP 14–24; TEMP 36.5–36.9; O2SAT 91–97; BMI 38.2
--- NOTE | 2023-09-25 01:31 | PC.NURSE ---
pt states he is very uncomfortable. feels he is backed up and needs an enema. physician notified and an order for a tap water enema was given.
[2023-09-25 04:48] LABS: Basophils % 0.3 %; Eosinophils % 0.1 %; Hematocrit 39.6 % (37-53); Lymphocytes # 1.1 10^3/uL (0.8-4.8); Lymphocytes % 9.6 %; Mean Corpuscular HGB Conc 30.3 g/dL (30-55); Mean Corpuscular Hemoglobin 25.5 pg (27-33); Mean Corpuscular Volume 84.3 fl (82-101); Mean Platelet Volume 10.1 fL (7.4-10.4); Monocytes # 1.2 10^3/uL (0.2-0.9); Monocytes % 10.7 %; Neutrophils # 9.03 10^3/uL (1.8-7.7); Nucleated Red Blood Cells % 0 %; Platelet Count 321 10^3/cmm (157-399); Red Cell Distribution Width 19.9 % (12.1-15.1); White Blood Count 11.43 10^3/uL (3.29-11.43)
[2023-09-25 05:07] LABS: Alanine Aminotransferase 217 U/L (0-41); Albumin Level 3.3 g/dL (3.5-5.2); Alkaline Phosphatase 206 U/L (40-130); Aspartate Amino Transferase 49 U/L (0-40); Blood Urea Nitrogen 69 mg/dL (8-23); Calcium 9.6 mg/dL (8.5-10.5); Carbon Dioxide 27 mmol/L (22-29); Chloride 87 mmol/L (98-107); Creatinine Clr Calc Pharmacy 53.6165; Globulin 4.5 g/dL (1.3-4.6); Glucose 160 mg/dL (65-115); Osmolality Calculated 294 mOsm/kg (285-295); Sodium 130 mmol/L (136-145); Total Bilirubin 2.2 mg/dL (0.15-1.2); Total Protein 7.8 g/dL (6.6-8.7)
[2023-09-25 05:08] LABS: Anion Gap 20.1 (5-19); Potassium 4.1 mmol/L (3.5-5.1)
[2023-09-25 06:23] LABS: Glucose Point of Care 199 mg/dL (70-110)
--- NOTE | 2023-09-25 07:01 | PM.PN ---
Subjective Subjective: Patient feeling well. No chest pain or shortness of breath Vitals/I&O/Wt Last Vital Signs Temp 97.7 F 09/25/23 04:51 Pulse 97 09/25/23 05:52 Resp 21 H 09/25/23 04:51 BP 123/86 09/25/23 04:51 Pulse Ox 96 09/25/23 04:51 O2 Del Method Nasal Cannula 09/25/23 04:51 O2 Flow Rate 2 09/25/23 04:51 09/24/23 09/25/23 09/25/23 22:59 06:59 14:59 Intake Total 480 / 480 720 / 1200 Output Total 250 / 1450 850 / 2300 Balance 230 / -970 -130 / -1100 Weight last 48 hrs Weight 274 lb Weight 276 lb Physical Exam Narrative: GENERAL: Patient is alert, awake and oriented x3. [] NECK: No jugular vein distension. [] HEENT: No cyanosis. No icterus. No pallor. [] HEART: Regular S1 and S2. No murmur, rub or gallop. [] LUNGS: Mild crakcles bilaterally CENTRAL NERVOUS SYSTEM: Grossly nonfocal. [] EXTREMITIES: Lower extremities with 1+ edema bilaterally. Urinary Catheter Management: Mathew: Cath Placed During This Visit: yes Reason for Continuing Indwelling Catheter: Other Urinary Catheter Date of Insertion: 09/18/23 Urinary Catheter Time of Insertion: 06:52 Data 09/26/23 02:44 09/26/23 02:44 A&P Assessment and plan (1) Acute on chronic systolic heart failure: (2) Secondary nonischemic congestive cardiomyopathy: (3) Dyslipidemia: (4) S/P ICD (internal cardiac defibrillator) procedure: (5) Atrial fibrillation: Qualifiers: Atrial fibrillation type: paroxysmal Qualified Code(s): I48.0 - Paroxysmal atrial fibrillation (6) Diabetes: Qualifiers: Diabetes mellitus complication detail: with other circulatory complications Diabetes mellitus complication status: with circulatory complication Diabetes mellitus long lines operator insulin use: with long lines operator use Diabetes mellitus type: type 2 Qualified Code(s): E11.59 - Type 2 diabetes mellitus with other circulatory complications; Z79.4 - termite treater (current) use of insulin (7) Chronic renal failure: Qualifiers: Chronic kidney disease stage: unspecified stage Qualified Code(s): N18.9 - Chronic kidney disease, unspecified Plan Switching to PO bumex today. Monitor renal function and I and Os. Continue Coreg. 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 As outpatient we will send referral to tertiary care center for evaluation for FIELD CANE SCALER HELPER-D upgrade and advanced heart failure evaluation. Thank you for involving us with care of this patient. We will continue to follow. Please call with questions. Attestations Medical Necessity Statement*: Care expected to cross 2 midnights. Coding Level of Care Code Acute Code for Chg Fwd Diagnoses Acute on chronic systolic heart failure I50.23 Secondary nonischemic congestive cardiomyopathy I42.0 Dyslipidemia E78.5 S/P ICD (internal cardiac defibrillator) procedure Z95.810 Paroxysmal atrial fibrillation I48.0 Atrial fibrillation type: paroxysmal Type 2 diabetes mellitus with other circulatory complication, with long-term current use of insulin E11.59; Z79.4 Diabetes mellitus complication detail: with other circulatory complications Diabetes mellitus complication status: with circulatory complication Diabetes mellitus long lines operator insulin use: with long lines operator use Diabetes mellitus type: type 2 Chronic renal failure N18.9 Chronic kidney disease stage: unspecified stage
[2023-09-25] MEDS: pantoprazole 40 mg SDV IVP (08:03)
[2023-09-25] MEDS: insulin lispro 100 unit/1 mL SUBCUT ×4 (08:03→21:20)
[2023-09-25] MEDS: bumetanide 0.25 mg/mL SDV 10 mL 1 MG IVP (08:03)
[2023-09-25] MEDS: sennosides-docusate Tablet 1 TAB PO (08:04)
[2023-09-25] MEDS: insulin glargine 100 units/1 mL 28 UNIT SUBCUT ×2 (08:04→17:03)
[2023-09-25] MEDS: rivaroxaban 10 mg Tablet PO (08:04)
[2023-09-25] MEDS: fluticasone nasal spray 16gm Btl 1 SPRAY NASAL ×2 (08:04→17:03)
[2023-09-25] MEDS: tamsulosin 0.4 mg Capsule PO (08:04)
[2023-09-25] MEDS: midodrine 5 mg TABLET PO ×3 (08:04→21:20)
[2023-09-25] MEDS: amiodarone 200 mg Tablet PO (08:04)
[2023-09-25] MEDS: polyethylene glycol 3350 Pkt 17 gm PO ×2 (08:04→17:03)
[2023-09-25] MEDS: aspirin 81 mg EC Tablet PO (08:04)
--- NOTE | 2023-09-25 08:13 | PC.NURSE ---
Dr Walden into see patient. Received verbal order to change IVP Bumex to Bumex 2g PO BID starting with this evenings dose.
[2023-09-25 11:34] LABS: Glucose Point of Care 257 mg/dL (70-110)
[2023-09-25] MEDS: bumetanide 1 mg Tablet 2 MG PO (17:02)
[2023-09-25 17:10] LABS: Glucose Point of Care 239 mg/dL (70-110)
[2023-09-25 21:13] LABS: Glucose Point of Care 196 mg/dL (70-110)
--- NOTE | 2023-09-25 21:18 | P.PN_ITS ---
Subjective 2 Subjective: He reports he is doing well. Breathing is been improving. Edema has been improving in his legs. Vitals/I&O/Wt Last Vital Signs Temp 97.9 F 09/25/23 16:00 Pulse 90 09/25/23 16:25 Resp 14 09/25/23 16:00 BP 132/80 09/25/23 16:00 Pulse Ox 97 09/25/23 16:00 O2 Del Method Room Air 09/25/23 16:00 O2 Flow Rate 2 09/25/23 07:54 09/25/23 09/25/23 09/25/23 06:59 14:59 22:59 Intake Total 720 / 1200 120 / 120 120 / 240 Output Total 850 / 2300 Balance -130 / -1100 120 / 120 120 / 240 Weight last 48 hrs Weight 124.284 kg Weight 125.191 kg Physical Exam 2 Narrative: Accompanied by his . Sitting up at the bedside. Const: COMMON NORMALS: patient oriented x3 and alert GENERAL APPEARANCE: c ooperative ORIENTATION/CONSCIOUSNESS: Yes awake HENMT: COMMON NORMALS: oropharynx normal Neck/C-Spine: COMMON NORMALS: no JVD Resp: COMMON NORMALS: normal respiratory effort and clear to auscultation bilaterally AUSCULTATION: clear to auscultation bilaterally Cardio: COMMON NORMALS: no JVD, regular rhythm, S1 normal heart sound present, S2 normal heart sound present and No murmurs present (Cardio) RHYTHM: regular rhythm HEART SOUNDS: S1 normal heart sound present and S2 normal heart sound present GI: COMMON NORMALS: Normal to inspection, nondistended, normoactive bowel sounds present, Soft to palpation and non-tender PALPATION: Yes Soft to palpation Extremity: COMMON NORMALS: no joint enlargement GENERAL: Yes edema (1+ resolving) Neuro: COMMON NORMALS: patient oriented x3 and moves all extremities S ENSORIUM/ORIENTATION: Yes alert Skin: COMMON NORMALS: no rashes or lesions noted GENERAL SKIN EXAM: no rashes or lesions noted OTHER: Sacrum with somewhat violaceous, minimally disclamation injury, appears to be both moisture and shear injury, is not over a bony prominence, appears to be less likely pressure sore, but pressure injury possible. No fluctuation, no drainage. Urinary Catheter Management: Mathew: Cath Placed During This Visit: yes Reason for Continuing Indwelling Catheter: Accurate Measurement of Urinary Output in Critically Ill Patients Urinary Catheter Date of Insertion: 09/18/23 Urinary Catheter Time of Insertion: 06:52 Data 09/25/23 03:46 09/25/23 03:46 A&P Assessment and plan (1) CHF (congestive heart failure): Reviewed vitals, intake and output, CBC, CMP, discussed with successfactors consultant. Congestive heart failure has been gradually improving with diuresis. He is in negative balance, continues to lose weight. Edema is improving. Transition to oral diuretic, reassess, tentative discharge tomorrow. Discussed with him and his . Reviewed potassium, doing okay. Reviewed creatinine, improved down to 1.9. Fluid restriction 1.2L. History of nonischemic cardiomyopathy. Repeat echocardiogram done earlier this admission showed EF of 10 to 15% with biatrial enlargement, severely hypokinetic RV, moderate TR, mild MR, mild AK, dilated IVC. Continue with Bumex 1 mg every 12 hourly, spironolactone 25 mg oral daily. Renal functions have remained stable. Starting on midodrine as above. Monitor electrolytes every 12 hours. Replace potassium accordingly. Depending on the hemodynamics within next 24 hours we will plan to add guideline directed medical therapy with possible Entresto and spironolactone. Qualifiers: Heart failure chronicity: chronic Heart failure type: unspecified Qualified Code(s): I50.9 - Heart failure, unspecified (2) Low output heart failure: With improvement. Ruled in with elevated lactate, features of mottling of left lower limb. midodrine 5 mg 3 times a day. Monitor hemodynamics, monitor telemetry. (3) Transaminitis: Reviewed T. bili, noted with new increase up to 2.2, possibly some cholestasis with diuresis. Reassess liver parameters. Alk phos 206, with some chronic elevation. Reviewed gallbladder ultrasound, with slightly contracted gallbladder, no stones or sludge. Suspected hepatocellular disease. Liver enlarged, changes suspicious for cirrhosis. Will need follow-up with PCP. Most likely in setting of congestive hepatomegaly along with low output syndrome. Negative hepatitis panel. Continue to monitor daily for now. Appreciate gallbladder ultrasound done on admission. (4) Cardiomyopathy: Qualifiers: Cardiomyopathy type: unspecified Qualified Code(s): I42.9 - Cardiomyopathy, unspecified (5) Atrial fibrillation: Continue with home dose of amiodarone 200 mg oral daily. Continue with home dose of Xarelto. Telemetry. Holding off on carvedilol as above. Qualifiers: Atrial fibrillation type: paroxysmal Qualified Code(s): I48.0 - Paroxysmal atrial fibrillation (6) Chronic kidney disease: Baseline creatinine around 2.1-2.4. Currently creatinine seems to be at baseline. Strict input charting as above. Medical reconciliation done for nephrotoxic drugs. Cannot rule out cardiorenal syndrome for now. (7) CHF exacerbation: (8) NAKUL (obstructive sleep apnea): (9) Goals of care, counseling/discussion: (10) S/P ICD (internal cardiac defibrillator) procedure: Plan Severe hyperglycemia: Reviewed Accu-Chek glucose, with improvement, glucose 160 this morning. Continue Lantus 28 units. Sliding scale. Continue consistent carb diet. Monitor for risk of hypoglycemia with escalation of insulin. At home normally on 25 units twice daily. Type 2 diabetes mellitus: Takes Lantus 25 units twice daily along with sliding scale. Blood sugars elevated. Change Lantus to twice daily. Continue with high-dose insulin sliding basis. Sacral injury: Noted violaceous injury with minimal patchy epithelial loss, moisture injury and shear injury, not over bony prominence, appears less likely pressure injury but cannot be excluded. Continue wound care, reposition frequently. He is aware of offloading pressure as well. Hypoxia: Resolved. Completed ceftriaxone and doxycycline Most likely in setting of congestive heart failure. Mild concern for pneumonia in right lower zone on chest x-ray. Uncollected sputum culture. For now continue with doxycycline and ceftriaxone to finish a 5-day course. Cardiac diet CODE STATUS: Discussed in detail with the patient. Discussed about severe cardiomyopathy. Patient would like to remain full code for now. Patient's son Aneesh will be the DPOA. Xarelto will be sufficient for DVT prophylaxis Protonix for PUD prophylaxis. Physical therapy evaluation. Attestations 2 Medical Necessity Statement*: Continue treatment of congestive heart failure, optimization of diabetes control with severe hyperglycemia. Diagnoses CHF (congestive heart failure) I50.9 Heart failure chronicity: chronic Heart failure type: unspecified Low output heart failure I50.9 Transaminitis R74.01 Cardiomyopathy I42.9 Cardiomyopathy type: unspecified Paroxysmal atrial fibrillation I48.0 Atrial fibrillation type: paroxysmal Chronic kidney disease N18.9 CHF exacerbation I50.9 NAKUL (obstructive sleep apnea) G47.33 Goals of care, counseling/discussion Z71.89 S/P ICD (internal cardiac defibrillator) procedure Z95.810
[2023-09-26] VITALS (8 sets, daily range): BP systolic 92–118; BP diastolic 73–87; PULSE 78–98; RESP 15–20; TEMP 36.4–36.8; O2SAT 88–99
[2023-09-26 03:18] LABS: Basophils # 0.1 10^3/uL (0.0-0.1); Basophils % 0.7 %; Eosinophils # 0.1 10^3/uL (0.0-0.8); Eosinophils % 0.8 %; Hematocrit 37.6 % (37-53); Lymphocytes # 1.5 10^3/uL (0.8-4.8); Lymphocytes % 17.3 %; Mean Corpuscular HGB Conc 30.9 g/dL (30-55); Mean Corpuscular Hemoglobin 25.9 pg (27-33); Mean Corpuscular Volume 83.9 fl (82-101); Mean Platelet Volume 9.9 fL (7.4-10.4); Monocytes # 1.1 10^3/uL (0.2-0.9); Monocytes % 11.8 %; Neutrophils # 6.13 10^3/uL (1.8-7.7); Nucleated Red Blood Cells % 0 %; Platelet Count 307 10^3/cmm (157-399); Red Blood Count 4.48 10^6/uL (3.85-5.65); Red Cell Distribution Width 19.8 % (12.1-15.1); White Blood Count 8.89 10^3/uL (3.29-11.43)
[2023-09-26 03:37] LABS: Alanine Aminotransferase 163 U/L (0-41); Albumin Level 3.2 g/dL (3.5-5.2); Alkaline Phosphatase 208 U/L (40-130); Anion Gap 16.1 (5-19); Aspartate Amino Transferase 46 U/L (0-40); Blood Urea Nitrogen 76 mg/dL (8-23); Calcium 9.8 mg/dL (8.5-10.5); Carbon Dioxide 30 mmol/L (22-29); Chloride 91 mmol/L (98-107); Creatinine Clr Calc Pharmacy 53.4123; Globulin 4.3 g/dL (1.3-4.6); Glucose 73 mg/dL (65-115); Osmolality Calculated 299 mOsm/kg (285-295); Potassium 3.1 mmol/L (3.5-5.1); Sodium 134 mmol/L (136-145); Total Bilirubin 1.8 mg/dL (0.15-1.2); Total Protein 7.5 g/dL (6.6-8.7)
[2023-09-26 06:34] LABS: Glucose Point of Care 82 mg/dL (70-110)
--- NOTE | 2023-09-26 08:27 | P.PN_ITS ---
Vitals/I&O/Wt Last Vital Signs Temp 97.7 F 09/26/23 07:51 Pulse 91 09/26/23 07:51 Resp 18 09/26/23 07:51 BP 118/87 09/26/23 07:51 Pulse Ox 89 L 09/26/23 07:51 O2 Del Method Nasal Cannula 09/26/23 07:51 O2 Flow Rate 2 09/26/23 03:38 09/25/23 09/26/23 09/26/23 22:59 06:59 14:59 Intake Total 170 / 290 Balance 170 / 290 Weight last 48 hrs Weight 272 lb Weight 274 lb Physical Exam 2 Urinary Catheter Management: Mathew: Cath Placed During This Visit: yes Reason for Continuing Indwelling Catheter: Accurate Measurement of Urinary Output in Critically Ill Patients Urinary Catheter Date of Insertion: 09/18/23 Urinary Catheter Time of Insertion: 06:52 Data 09/26/23 02:44 09/26/23 02:44 Coding Level of Care Code Acute Code for Chg Fwsandip
[2023-09-26] MEDS: midodrine 5 mg TABLET PO ×2 (08:31→15:07)
[2023-09-26] MEDS: bumetanide 1 mg Tablet 2 MG PO (08:31)
[2023-09-26] MEDS: aspirin 81 mg EC Tablet PO (08:31)
[2023-09-26] MEDS: tamsulosin 0.4 mg Capsule PO (08:31)
[2023-09-26] MEDS: rivaroxaban 10 mg Tablet PO (08:31)
[2023-09-26] MEDS: sennosides-docusate Tablet 1 TAB PO (08:31)
[2023-09-26] MEDS: amiodarone 200 mg Tablet PO (08:31)
[2023-09-26] MEDS: pantoprazole 40 mg SDV IVP (08:34)
[2023-09-26] MEDS: polyethylene glycol 3350 Pkt 17 gm PO (08:34)
[2023-09-26] MEDS: insulin glargine 100 units/1 mL 28 UNIT SUBCUT (08:35)
--- NOTE | 2023-09-26 09:08 | PC.NURSE ---
Dietary stated that she brought bacons and biscuits w/gravy for the pt's request. Educated and patient on the importance of low salt diet for heart failure and will cause significant swelling if not cautious on salt intake. educated pt that he can take less than 2 grms of salt in a day.
--- NOTE | 2023-09-26 10:03 | P.DS_ITS ---
Discharge Providers Date of Admission: 09/17/23 18:19 Date of Discharge: September 26, 2023 Attending Provider at Admission: Attila Soto MD Attending Provider at Discharge: Michael Hopper Primary Care Provider: Rochelle Rodriges MD Diagnoses at Discharge Discharge Diagnosis (1) Acute on chronic systolic heart failure: Status: Acute (2) Secondary nonischemic congestive cardiomyopathy: Status: Acute (3) Dyslipidemia: Status: Acute (4) S/P ICD (internal cardiac defibrillator) procedure: Status: Acute (5) Atrial fibrillation: Status: Acute Qualifiers: Atrial fibrillation type: paroxysmal Qualified Code(s): I48.0 - Paroxysmal atrial fibrillation (6) Diabetes: Status: Acute Qualifiers: Diabetes mellitus complication detail: with other circulatory complications Diabetes mellitus complication status: with circulatory complication Diabetes mellitus keno terminal operator insulin use: with keno terminal operator use Diabetes mellitus type: type 2 Qualified Code(s): E11.59 - Type 2 diabetes mellitus with other circulatory complications; Z79.4 - intermediate accountant (current) use of insulin (7) Chronic renal failure: Status: Acute Qualifiers: Chronic kidney disease stage: unspecified stage Qualified Code(s): N18.9 - Chronic kidney disease, unspecified Reason for Visit Reason for Visit: SOB Hospital Course Hospital Course Pleasant 62-year-old gentleman with history of nonischemic cardiomyopathy, status post AICD, pacemaker, previously EF 35%, atrial fibrillation, CKD, diabetes, DVT, on Xarelto, was admitted after presenting with symptoms of congestive heart failure, with finding of decompensated CHF, with worsened ejection fraction down to 10-15%, with low output heart failure, with cardiogenic shock, elevated lactate, worsening transaminitis, tissue hypoperfusion with mottling particularly of the left leg, was treated with dobutamine drip, diuretics, with good response, and negative balance. Dobutamine weaned off. So far has continued tolerating diuresis, although blood pressure has been on the soft side, continues on midodrine, Entresto, spironolactone, carvedilol had to be discontinued for now. Continues on bumetanide, dose decreased slightly at discharge to 1 mg twice daily. Atorvastatin dose for now decreased down to 40 mg due to significant transaminitis if continuing to improve could consider resuming prior dose. Please follow-up volume status, liver and kidney function, congestive heart failure, he is asked to follow-up with cardiology in office. If blood pressure allows consider resumption of his medications in a stepwise fashion. During hospitalization her insulin was also adjusted, Lantus increased up to 28 units twice daily, on discharge he switched over to high-dose sliding scale. Please reassess also sacral injury, with noted some violaceous discoloration with some patchy epithelial loss with shear injury, moisture damage and possibly pressure injury, he is asked to continue wound care with foam dressing, reposition frequently. Physical Exam Narrative: Accompanied by his . Const: COMMON NORMALS: patient oriented x3 and alert GENERAL APPEARANCE: cooperative ORIENTATION/CONSCIOUSNESS: Yes awake HENMT: COMMON NORMALS: oropharynx normal Neck/C-Spine: COMMON NORMALS: no JVD Resp: COMMON NORMALS: normal respiratory effort and clear to auscultation bilaterally AUSCULTATION: clear to auscultation bilaterally Cardio: COMMON NORMALS: no JVD, regular rhythm, S1 normal heart sound present, S2 normal heart sound present and No murmurs present (Cardio) RHYTHM: regular rhythm HEART SOUNDS: S1 normal heart sound present and S2 normal heart sound present GI: COMMON NORMALS: Normal to inspection, nondistended, normoactive bowel sounds present, Soft to palpation and non-tender PALPATION: Yes Soft to palpation Extremity: COMMON NORMALS: no joint enlargement GENERAL: Yes edema (1+ resolving) Neuro: COMMON NORMALS: patient oriented x3 and moves all extremities SENSORIUM/ORIENTATION: Yes alert Skin: COMMON NORMALS: no rashes or lesions noted GENERAL SKIN EXAM: no rashes or lesions noted OTHER: Sacrum with somewhat violaceous, minimally disclamation injury, appears to be both moisture and shear injury, is not over a bony prominence, appears to be less likely pressure sore, but pressure injury possible. No fluctuation, no drainage. Urinary Catheter Management: Mathew: Cath Placed During This Visit: yes Reason for Continuing Indwelling Catheter: Accurate Measurement of Urinary Output in Critically Ill Patients Urinary Catheter Date of Insertion: 09/18/23 Urinary Catheter Time of Insertion: 06:52 Discharge Data Studies Completed and Pending Completed Studies During Hospitalization Category Date Time Status CT abdomen wo con [id number] Stat Cat Scan 09/18/23 04:07 Completed XR chest 1V portable [id number] Stat Exams 09/17/23 14:35 Completed CV. echo limited [id number] Routine Ultrasound 09/17/23 20:12 Completed US arterial duplex lower extremity bilat [CV arterial Ultrasound 09/18/23 04:43 [place] [id number]] Stat US gall bladder [id number] Routine Ultrasound 09/18/23 06:42 Completed Pending at discharge Category Date Time Status Sputum Culture and Gram Stain Stat Lab 09/18/23 12:23 Uncollected Radiology Impressions Chest X-Ray 09/17/23 14:35 IMPRESSION: No abnormality in the right lower lung field as above. Abdomen CT 09/18/23 04:07 IMPRESSION: 1. Mild infiltrates or atelectasis. 2. Small right pleural effusion. 3. Slight ascites. 4. Sludge or inspissated bile within the gallbladder probably present. Duplex Scan Lower Extremity Artery 09/18/23 04:43 IMPRESSION: No stenosis or occlusion. Gallbladder Ultrasound 09/18/23 06:42 IMPRESSION: 1. Slightly contracted gallbladder with diffuse wall thickening. No stones or sludge identified. The wall thickening is probably associated with hepatocellular disease and the ascites. 2. Small amount of ascites. 3. Liver is measuring slightly enlarged with changes suspicious for cirrhosis. 4. No hepatobiliary duct dilatation. Laboratory Results WBC 8.89 10^3/uL (3.29-11.43) 09/26/23 02:44 RBC 4.48 10^6/uL (3.85-5.65) 09/26/23 02:44 Hgb 11.60 g/dL (11.27-16.99) 09/26/23 02:44 Hct 37.6 % (37-53) 09/26/23 02:44 MCV 83.9 fl (82-101) 09/26/23 02:44 MCH 25.9 pg (27-33) L 09/26/23 02:44 MCHC 30.9 g/dL (30-55) 09/26/23 02:44 RDW 19.8 % (12.1-15.1) H 09/26/23 02:44 Plt Count 307 10^3/cmm (157-399) 09/26/23 02:44 MPV 9.9 fL (7.4-10.4) 09/26/23 02:44 Neut % (Auto) 69.0 % 09/26/23 02:44 Lymph % (Auto) 17.3 % 09/26/23 02:44 Gallia % (Auto) 11.8 % 09/26/23 02:44 Eos % (Auto) 0.8 % 09/26/23 02:44 Baso % (Auto) 0.7 % 09/26/23 02:44 Neut # (Auto) 6.13 10^3/uL (1.8-7.7) 09/26/23 02:44 Lymph # (Auto) 1.5 10^3/uL (0.8-4.8) 09/26/23 02:44 Gallia # (Auto) 1.1 10^3/uL (0.2-0.9) H 09/26/23 02:44 Eos # (Auto) 0.1 10^3/uL (0.0-0.8) 09/26/23 02:44 Baso # (Auto) 0.1 10^3/uL (0.0-0.1) 09/26/23 02:44 Nucleated RBC % (auto) 0 % 09/26/23 02:44 Nucleated RBCs # 0.0 /100WBC 09/26/23 02:44 PT 29.20 SECONDS (12.1-14.9) H 09/17/23 16:15 INR 2.64 (0.8-1.2) H 09/17/23 16:15 Sodium 134 mmol/L (136-145) L 09/26/23 02:44 Potassium 3.1 mmol/L (3.5-5.1) L 09/26/23 02:44 Chloride 91 mmol/L (98-107) L 09/26/23 02:44 Carbon Dioxide 30 mmol/L (22-29) H 09/26/23 02:44 Anion Gap 16.1 (5-19) 09/26/23 02:44 BUN 76 mg/dL (8-23) H 09/26/23 02:44 Creatinine 1.9 mg/dL (0.7-1.2) H 09/26/23 02:44 GFR Calculation 36.0 mL/min (90-130) L 09/26/23 02:44 Glucose 73 mg/dL (65-115) 09/26/23 02:44 POC Glucose 82 mg/dL (70-110) 09/26/23 06:28 Calculated Osmolality 299 mOsm/kg (285-295) H 09/26/23 02:44 Lactic Acid 5.1 mmol/L (0.5-2.2) H* 09/18/23 12:34 Lactic Acid (Sepsis) 0.2 mmol/L (0.5-2.2) L 09/18/23 15:22 Lactate 1.8 mmol/L (0.5-2.2) 09/19/23 03:52 Calcium 9.8 mg/dL (8.5-10.5) 09/26/23 02:44 Phosphorus 4.9 mg/dL (2.5-4.5) H 09/18/23 04:59 Magnesium 2.4 mg/dL (1.7-2.3) H 09/24/23 04:26 Total Bilirubin 1.8 mg/dL (0.15-1.2) H 09/26/23 02:44 AST 46 U/L (0-40) H 09/26/23 02:44 ALT 163 U/L (0-41) H 09/26/23 02:44 Alkaline Phosphatase 208 U/L (40-130) H 09/26/23 02:44 Ammonia 20 umol/L (16-60) 09/19/23 10:04 Troponin T Baseline 94 ng/L (0-15) H 09/18/23 04:59 Troponin T 120 Minute 88.74 ng/L (0-15) H 09/18/23 06:49 Delta Troponin T -5.26 ABS# (0-10) L 09/18/23 06:49 Troponin T Hi Sens 6Hr 95.54 ng/L (0-15) H 09/18/23 10:45 Troponin T Hi Sens 6Hr Delta 1.54 ng/L (0-12) 09/18/23 10:45 NT-Pro-B Natriuret Pep 5911 pg/mL (0-125) H 09/17/23 16:15 Total Protein 7.5 g/dL (6.6-8.7) 09/26/23 02:44 Albumin 3.2 g/dL (3.5-5.2) L 09/26/23 02:44 Globulin 4.3 g/dL (1.3-4.6) 09/26/23 02:44 Lipase 22 U/L (13-60) 09/18/23 04:59 Ur Eosinophil Smear 0 (0-0) 09/18/23 15:02 Urine Eosinophils No eosinophils seen 09/18/23 15:02 Ur Random Sodium 74 mmol/L 09/18/23 15:02 Ur Random Potassium 36 mmol/L 09/18/23 15:02 Ur Random Chloride 84 mmol/L 09/18/23 15:02 Urine Creatinine 28 mg/dL (39-259) L 09/18/23 15:02 Hepatitis A IgM Ab Non-reactive (Nonreactive) 09/18/23 05:49 Hep Bs Antigen Non-reactive (Nonreactive) 09/18/23 05:49 Hep Bs Antibody 22.4 (11.5-1000) 09/18/23 05:49 Hep B Core Total Ab Non-reactive (Nonreactive) 09/18/23 05:49 Hepatitis C Antibody Non-reactive (Nonreactive) 09/18/23 05:49 SARS-CoV-2 Ag (Rapid) negative (Negative) 09/17/23 16:36 Vitals Last Vital Signs Temp 97.7 F 09/26/23 07:51 Pulse 98 09/26/23 09:44 Resp 18 09/26/23 09:44 BP 118/87 09/26/23 07:51 Pulse Ox 96 09/26/23 09:44 O2 Del Method Nasal Cannula 09/26/23 09:44 O2 Flow Rate 2 09/26/23 09:44 Discharge Plan Discharge Patient Disposition: Home Condition: Stable Prescriptions: New bumetanide 1 mg Tablet 1 mg PO BID Qty: 90 0RF Humalog U-100 Insulin 100 unit/mL Solution See Rx Instructions .ROUTE .COMPLEX Qty: 10 0RF Rx Instructions: Glucose: 141-180 - 6 units 181-220 - 8 221-260 - 10 261-300 - 12 301-350 - 14 351-400 - 16 >400 - 18 units polyethylene glycol 3350 17 gram Powder In Packet 17 g PO BID Qty: 100 0RF midodrine 5 mg Tablet 5 mg PO TID Qty: 90 0RF Continued citalopram 20 mg tablet 20 mg PO DAILY allopurinol 100 mg tablet 100 mg PO DAILY Xarelto 20 mg tablet 20 mg PO DAILY terazosin 1 mg capsule 1 mg PO BEDTIME amiodarone 200 mg tablet 200 mg PO DAILY Qty: 90 1RF aspirin 81 mg Tablet,Delayed Release (Dr/Ec) 81 mg PO DAILY omeprazole 40 mg capsule,delayed release(DR/EC) 40 mg PO DAILY potassium chloride 20 mEq tablet extended release 20 meq PO DAILY ergocalciferol (vitamin D2) 1,250 mcg (50,000 unit) capsule 50,000 unit PO Q7D Rx Instructions: on Friday Jardiance 25 mg Tablet 25 mg PO QAM Changed atorvastatin 80 mg tablet 40 mg PO QPM Qty: 1 0RF Rx Instructions: Reduce to 40 mg for now Lantus U-100 Insulin 100 unit/mL solution 28 unit SUBCUT BID Qty: 10 0RF Discontinued spironolactone 25 mg tablet 25 mg PO DAILY Humalog KwikPen Insulin 200 unit/mL (3 mL) insulin pen 60 unit SUBCUT TID carvedilol 3.125 mg Tablet 3.125 mg PO BID Qty: 60 0RF Entresto 97-103 mg tablet 1 tab PO BID Qty: 60 0RF furosemide [Lasix] 80 mg tablet 80 mg PO BID Qty: 60 0RF Hold Instructions: Resume on 09/05/23. Discharge Orders: Discharge Order (Routine); Ordered 09/26/23 Ordered By: Michael Hopper Referrals: Rochelle Rodriges MD [Primary Care Provider] - 4-7 days (Follow up with Gilma FridaySeptember 30 at 09:30 ) Magda Perdomo FNP [Nurse Practitioner] - 1 week Discharge Diet: As Directed, Cardiac and Diabetic Discharge Activity: Oxygen as instructed Patient Instructions: Heart Failure (DC), CHF Stoplight Activity Restrictions/Additional Instructions: Follow-up with your primary doctor and cardiology regarding congestive heart failure. Maintain fluid restriction of less than 1200 mL total intake per day. Follow-up with your primary doctor for reassessment of liver function. Please decrease atorvastatin to 40 mg for now, have your primary doctor reassess your liver function, if improving may consider increasing back to 80. Please hold carvedilol, Entresto and spironolactone for now due to soft blood pressures. Continue to monitor blood pressures, if they start rising and may be able to resume these medications in stepwise fashion. Continue optimization of control of diabetes and elevated blood glucose. Target blood glucose 100-150. Increase insulin Lantus to 28 units twice daily. Continue to monitor blood sugars. Continue foam dressing for sacral injury due to shear injury, moisture and possibly pressure injury, follow-up with your primary doctor for reassessment, reposition every 1-2 hours at least 2 relieve pressure from any one area on your skin. Seek medical attention in case of any worsening or new concerning symptoms. Discharge Attestations Time Spent in Discharge Care*: greater than 30 min Quality Metrics Clinical Quality Measures [ No reported AMI, CVA or VTE this stay] Coding Level of Care Code 34034 Total time (in minutes) for Discharge: 45 Diagnoses Acute on chronic systolic heart failure I50.23 Secondary nonischemic congestive cardiomyopathy I42.0 Dyslipidemia E78.5 S/P ICD (internal cardiac defibrillator) procedure Z95.810 Paroxysmal atrial fibrillation I48.0 Atrial fibrillation type: paroxysmal Type 2 diabetes mellitus with other circulatory complication, with long-term current use of insulin E11.59; Z79.4 Diabetes mellitus complication detail: with other circulatory complications Diabetes mellitus complication status: with circulatory complication Diabetes mellitus group home insulin use: with group home use Diabetes mellitus type: type 2 Chronic renal failure N18.9 Chronic kidney disease stage: unspecified stage
[2023-09-26] MEDS: fluticasone nasal spray 16gm Btl 1 SPRAY NASAL (10:27)
[2023-09-26] MEDS: potassium chloride ER 20 mEq Tablet 40 MEQ PO (10:27)
[2023-09-26 11:21] LABS: Glucose Point of Care 189 mg/dL (70-110)
--- NOTE | 2023-09-26 12:26 | PC.SOCIAL ---
IMM updated IMM dated and initialed, copy given to patient and placed in chart.
[2023-09-26] MEDS: insulin lispro 100 unit/1 mL SUBCUT (13:03)
--- NOTE | 2023-09-26 14:50 | PC.NURSE ---
oxygen tank provided by HOME and delivered.
== END 2023-09-26 15:28 | disposition home or self-care (01) | DRG 291 ==
LOC: ER 18:03 → MEDSURG 20:04 → CSU 09-18 12:01
PROVIDERS: Internal Medicine; Admitting Provider Student in an Organized Health Care Education/Training Program; Emergency Provider Emergency Medicine; PCP Internal Medicine; Visit Provider Internal Medicine
DX: I50.23 Acute on chronic systolic (congestive) heart failure (principal); J18.9 Pneumonia, unspecified organism; R57.0 Cardiogenic shock; I42.8 Other cardiomyopathies; E87.1 Hypo-osmolality and hyponatremia; E11.59 Type 2 diabetes mellitus with other circulatory complications; E11.65 Type 2 diabetes mellitus with hyperglycemia; I25.10 Atherosclerotic heart disease of native coronary artery without angina pectoris; I48.0 Paroxysmal atrial fibrillation; E78.5 Hyperlipidemia, unspecified; G47.33 Obstructive sleep apnea (adult) (pediatric); I08.1 Rheumatic disorders of both mitral and tricuspid valves; E87.5 Hyperkalemia; E66.01 Morbid (severe) obesity due to excess calories; Z68.37 Body mass index [BMI] 37.0-37.9, adult; Z11.52 Encounter for screening for COVID-19; Z95.810 Presence of automatic (implantable) cardiac defibrillator; Z99.81 Dependence on supplemental oxygen; Z79.01 Long term (current) use of anticoagulants; Z79.4 Long term (current) use of insulin; Z79.82 Long term (current) use of aspirin; Z86.718 Personal history of other venous thrombosis and embolism
CPT/HCPCS: 36415; 36416; 51702; 71045; 74150; 76705; 80048; 80053; 82140; 82436; 82570; 82962; 83605; 83690; 83735; 83880; 84100; 84133; 84300; 84484; 85025; 85610; 85999; 86705; 86706; 86709; 86803; 87040; 87340; 87426; 93005; 93308; 93925; 94640; 94760; 96365; 96372; 96375; 96376; 97110; 97116; 97161; 97530; 99285; J0456; J0696; J1250; J1815; J1940; J2405; J2470; J3490; J7050

== ENCOUNTER 2023-09-28 14:56 | Inpatient (IN) | payer MEDICARE, MEDICAID, SELFPAY ==
[2023-09-28] VITALS (7 sets, daily range): BP systolic 91–120; BP diastolic 69–82; PULSE 66–81; RESP 18–26; TEMP 36.5–36.8; O2SAT 93–98
--- NOTE | 2023-09-28 15:11 | ED_ITS ---
HPI - SOB/Dyspnea 2 General: Chief Complaint: Shortness of Breath/Dyspnea Stated Complaint: resp distress Time Seen by Provider: 09/28/23 15:05 History of Present Illness: HPI Narrative: 62-year-old male with severe nonischemic cardiomyopathy patient has an ICD in place previously had depressed ejection fraction was discharged 2 days ago during that hospitalization his ejection fraction had decreased to 10 to 15%. His anastrozole was stopped as well as his carvedilol and spironolactone. He was decreased on his Bumex to 1 mg twice daily and also put on midodrine. He reports they did not have 2 of his medications and he went to the pharmacy the other new medications were changed and his Humalog sliding scale and polyethylene glycol and assuming is submitted Tato Anselmo he has not been able to get that we we will have to confirm with the pharmacy. He states he had increased swelling in his lower extremities worsening orthopnea and PND. He denies any chest pain at this time Associated symptoms: Reports orthopnea; Deny abdominal pain, chest pain or fever(s) Review of Systems 2 Const: Denies: fever(s) or chills Card: Reports: edema, swelling of feet/ankles, dyspnea on exertion and orthopnea; Denies: chest pain Resp: Reports: dyspnea GI: Denies: abdominal pain : Denies: dysuria, urinary frequency or urinary urgency Musc: Denies: neck pain or back pain Skin/Breast: Denies: rash PFSH ED 2 PFSH: Medical History Arthritis Chronic kidney disease Atrial fibrillation Anticoagulation adequate with anticoagulant therapy Dyslipidemia NAKUL (obstructive sleep apnea) CHF (congestive heart failure) Diabetes DVT (deep venous thrombosis) Cardiomyopathy Surgical History S/P knee replacement S/P ICD (internal cardiac defibrillator) procedure Family History Father Stroke CAD (coronary artery disease) Sister Stroke Brother Stroke Other Hypertension Social History Smoking and tobacco/nicotine status: never used tobacco/nicotine Alcohol intake: never Substance/Drug Use: never Physical Exam 2 Const: ORIENTATION/CONSCIOUSNESS: Yes awake, Yes oriented to person, Yes oriented to place and Yes oriented to time HENMT: COMMON NORMALS: normocephalic, atraumatic and hearing grossly normal bilaterally HEAD & SCALP: normocephalic and atraumatic Resp: COMMON NORMALS: normal respiratory effort, No retractions, No use of accessory muscles and clear to auscultation bilaterally AUSCULTATION: clear to auscultation bilaterally Cardio: COMMON NORMALS: regular rate, regular rhythm and No murmurs present (Cardio) RATE: regular rate RHYTHM: regular rhythm GI: COMMON NORMALS: Soft to palpation and No hepatosplenomegaly present A USCULTATION: Yes normoactive bowel sounds PALPATION: Yes Soft to palpation, No Tenderness to palpation present (GI), No Guarding due to palpation present (GI) and Yes No hepatosplenomegaly present Extremity: COMMON NORMALS: normal to inspection, capillary refill normal and no calf tenderness GENERAL: Yes edema (Pitting edema of the lower extremities bilaterally) Neuro: SENSORIUM/ORIENTATION: Yes oriented to person, Yes oriented to place and Yes oriented to time Skin: COMMON NORMALS: no rashes or lesions noted GENERAL SKIN EXAM: no rashes or lesions noted Course 2 Vital Signs: Vital signs: Vital Signs Temperature 97.6 F 09/30/23 04:00 Pulse Rate 81 09/30/23 05:59 Respiratory Rate 20 H 09/30/23 04:00 Blood Pressure 122/70 09/30/23 04:00 Pulse Oximetry 96 09/30/23 04:00 Oxygen Delivery Me thod Room Air 09/30/23 04:00 Oxygen Flow Rate 95 09/28/23 21:05 MDM - SOB/Dyspnea Medical Decision Making Exacerbation of his underlying chronic medical problems. Chronic kidney disease chronic congestive heart failure both are in acute decompensated mode at this time. Largely driven by patient not being able to obtain the medications that were prescribed because of pharmacy did not have them in stock and he was waiting for them to receive them on shipment. Discussed with hospitalist orders written for admission Lab Data 09/30/23 03:25 09/30/23 03:25 Labs/Radiology: Radiology Impressions Chest X-Ray 09/28/23 15:37 IMPRESSION: Cardiomegaly with pulmonary vascular congestion, similar in appearance to prior study. Abdomen Ultrasound 09/29/23 09:30 IMPRESSION: 1. Technically very limited and difficult evaluation of the RIGHT upper quadrant due to patient's body habitus. 2. No cholelithiasis. 3. Small amount of ascites. 4. Mild enlargement of the liver with hepatic steatosis and possible cirrhosis. Laboratory Results WBC 8.80 10^3/uL (3.29-11.43) 09/28/23 17:01 RBC 4.74 10^6/uL (3.85-5.65) 09/28/23 17:01 Hgb 12.30 g/dL (11.27-16.99) 09/28/23 17:01 Hct 39.8 % (37-53) 09/28/23 17:01 MCV 84.0 fl (82-101) 09/28/23 17: MCH 25.9 pg (27-33) L 09/28/23 17:01 MCHC 30.9 g/dL (30-55) 09/28/23 17:01 RDW 19.8 % (12.1-15.1) H 09/28/23 17:01 Plt Count 324 10^3/cmm (157-399) 09/28/23 17:01 MPV 9.7 fL (7.4-10.4) 09/28/23 17:01 Neut % (Auto) 71.7 % 09/28/23 17:01 Lymph % (Auto) 16.8 % 09/28/23 17:01 [place] % (Auto) 10.5 % 09/28/23 17:01 Eos % (Auto) 0.3 % 09/28/23 17:01 Baso % (Auto) 0.2 % 09/28/23 17:01 Neut # (Auto) 6.31 10^3/uL (1.8-7.7) 09/28/23 17:01 Lymph # (Auto) 1.5 10^3/uL (0.8-4.8) 09/28/23 17:01 [place] # (Auto) 0.9 10^3/uL (0.2-0.9) 09/28/23 17:01 Eos # (Auto) 0.0 10^3/uL (0.0-0.8) 09/28/23 17:01 Baso # (Auto) 0.0 10^3/uL (0.0-0.1) 09/28/23 17:01 Nucleated RBC % (auto) 0 % 09/28/23 17:01 Nucleated RBCs # 0.0 /100WBC 09/28/23 17:01 ESR 20 mm/hr (0-10) H 09/28/23 17:01 Sodium 131 mmol/L (136-145) L 09/28/23 17:01 Potassium 3.6 mmol/L (3.5-5.1) 09/28/23 17:01 Chloride 89 mmol/L (98-107) L 09/28/23 17:01 Carbon Dioxide 28 mmol/L (22-29) 09/28/23 17:01 Anion Gap 17.6 (5-19) 09/28/23 17:01 BUN 69 mg/dL (8-23) H 09/28/23 17:01 Creatinine 2.2 mg/dL (0.7-1.2) H 09/28/23 17:01 GFR Calculation 30.4 mL/min (90-130) L 09/28/23 17:01 Glucose 82 mg/dL (65-115) 09/28/23 17:01 POC Glucose 84 mg/dL (70-110) 09/28/23 18:59 Calculated Osmolality 291 mOsm/kg (285-295) 09/28/23 17:01 Lactic Acid 1.8 mmol/L (0.5-2.2) 09/28/23 17:01 Calcium 9.8 mg/dL (8.5-10.5) 09/28/23 17:01 Total Bilirubin 1.5 mg/dL (0.15-1.2) H 09/28/23 17:01 AST 37 U/L (0-40) 09/28/23 17:01 ALT 99 U/L (0-41) H 09/28/23 17:01 Alkaline Phosphatase 241 U/L (40-130) H 09/28/23 17:01 Troponin T Baseline 84 ng/L (0-15) H 09/28/23 17:01 C-Reactive Protein 54.7 mg/L (0.0-4.9) H 09/28/23 17:01 NT-Pro-B Natriuret Pep 6551 pg/mL (0-125) H 09/28/23 17:01 Total Protein 7.7 g/dL (6.6-8.7) 09/28/23 17:01 Albumin 3.4 g/dL (3.5-5.2) L 09/28/23 17:01 Globulin 4.3 g/dL (1.3-4.6) 09/28/23 17:01 Procalcitonin 0.50 ng/mL (0-0.5) 09/28/23 17:01 Urine Color Yellow (Yellow) 09/28/23 16:00 Urine Appearance Clear (CLEAR) 09/28/23 16:00 Urine pH 6.5 (5-7) 09/28/23 16:00 Ur Specific Lewis 1.013 (1.005-1.030) 09/28/23 16:00 Urine Protein 1+ (Negative) A 09/28/23 16:00 Urine Glucose (UA) 3+ (Normal) H 09/28/23 16:00 Urine Ketones Negative (Negative) 09/28/23 16:00 Urine Blood Negative (Negative) 09/28/23 16:00 Urine Nitrate Negative (Negative) 09/28/23 16:00 Urine Bilirubin Negative (Negative) 09/28/23 16:00 Urine Urobilinogen 2.0 mg/dL (Negative) H 09/28/23 16:00 Ur Leukocyte Esterase Negative (Negative) 09/28/23 16:00 Urine RBC 0-2 /hpf (0-2) 09/28/23 16:00 Urine WBC 0-5 /hpf (0-5) 09/28/23 16:00 Ur Squamous Epith Cells 0-5 /hpf (0-5) 09/28/23 16:00 Amorphous Sediment Not Reportable 09/28/23 16:00 Urine Bacteria None seen /hpf (NONE) 09/28/23 16:00 Hyaline Casts 0.81 /lpf 09/28/23 16:00 Urine Yeast 1+ /hpf H 09/28/23 16:00 All radiology interpretation(s) finalized by discharge Discharge Plan Discharge Patient Disposition: Placed in Observation Admit Provider: Marco Rust Clinical Impression: Acute on chronic systolic heart failure, DAYANNA (acute kidney injury), Cardiomyopathy, Chronic renal failure Coding Level of Care Code ED Contract Graphic Designer for Zechariah Vicente
--- NOTE | 2023-09-28 15:37 | XRR_ITS ---
PROCEDURE INFORMATION: Exam: XR Chest Exam date and time: 09/28/2023 3:49 PM Age: 62 years old Clinical indication: Dyspnea and shortness of breath; Prior surgery; Surgery date: 6+ months; Surgery type: Pacemaker/defib; Patient HX: SOB; Hypoxia; Additional info: Dyspnea/cough TECHNIQUE: Imaging protocol: Radiologic exam of the chest. Views: 1 view. COMPARISON: CR XR chest 1V portable [id number] 09/17/2023 2:40 PM FINDINGS: Tubes, catheters and devices: AICD/pacer device noted in the right chest wall. Lungs: Unremarkable. No consolidation. Pleural spaces: Unremarkable. No pleural effusion. No pneumothorax. Heart/Mediastinum: Cardiomegaly with pulmonary vascular congestion. Bones/joints: Unremarkable. XR/XR chest 1V portable [id number] IMPRESSION: Cardiomegaly with pulmonary vascular congestion, similar in appearance to prior study.
--- NOTE | 2023-09-28 15:37 | ECG_ITS ---
[facility] Test Date: 2023-09-28 Pat Name: Eliseo Reyes Department: Room: Gender: Male Web Development Manager: : 1960 Requested By: Anthony Cummings Order Number: [id number] Alek MD: Oz Saenz M.D. Measurements Intervals [place] Rate: 70 P: 0 MD: 0 QRS: 99 QRSD: 138 T: 0 QT: 452 QTc: 490 Interpretive Statements ATRIAL FIBRILLATION BORDERLINE RIGHT AXIS DEVIATION [QRS AXIS > 90] INTRAVENTRICULAR CONDUCTION DELAY [130+ ms QRS DURATION] POSSIBLE ANTERIOR MYOCARDIAL INFARCTION , PROBABLY OLD [30 ms Q WAVE IN V3/V4, OR R < 0.2 mV IN V4] Compared to ECG 09/18/2023 06:24:25 No significant changes Electronically Signed On 09-29-2023 14:08:51 CDT by Oz Saenz M.D. [id number]
[2023-09-28 16:09] LABS: Charge for UA Resulting for Rev
[2023-09-28 16:12] LABS: Bilirubin Urine Negative (Negative); Blood Urine Negative (Negative); Glucose Urine UA 3+ (Normal); Ketones Urine Negative (Negative); Leukocyte Esterase Urine Negative (Negative); Nitrate Urine Negative (Negative); Protein Urine 1+ (Negative); Specific Gravity, Urine 1.013 (1.005-1.030); Urine Appearance Clear (CLEAR); Urine Color Yellow (Yellow); pH Urine 6.5 (5-7)
[2023-09-28 16:31] LABS: Bacteria Urine None Seen /hpf; Hyaline Casts Urine 0.81 /lpf; RBC Urine 0-2 /hpf (0-2); Squamous Epithelial Cell Urine 0-5 /hpf (0-5); WBC Urine 0-5 /hpf (0-5)
[2023-09-28] MEDS: bumetanide 0.25 mg/mL SDV 4 mL 1 MG IVP ×2 (16:49→21:48)
[2023-09-28 17:06] LABS: Basophils % 0.2 %; Eosinophils % 0.3 %; Hematocrit 39.8 % (37-53); Lymphocytes # 1.5 10^3/uL (0.8-4.8); Lymphocytes % 16.8 %; Mean Corpuscular HGB Conc 30.9 g/dL (30-55); Mean Corpuscular Hemoglobin 25.9 pg (27-33); Mean Platelet Volume 9.7 fL (7.4-10.4); Monocytes # 0.9 10^3/uL (0.2-0.9); Monocytes % 10.5 %; Neutrophils # 6.31 10^3/uL (1.8-7.7); Neutrophils % 71.7 %; Nucleated Red Blood Cells % 0 %; Platelet Count 324 10^3/cmm (157-399); Red Blood Count 4.74 10^6/uL (3.85-5.65); Red Cell Distribution Width 19.8 % (12.1-15.1)
[2023-09-28 17:33] LABS: Alanine Aminotransferase 99 U/L (0-41); Albumin Level 3.4 g/dL (3.5-5.2); Alkaline Phosphatase 241 U/L (40-130); Anion Gap 17.6 (5-19); Aspartate Amino Transferase 37 U/L (0-40); Blood Urea Nitrogen 69 mg/dL (8-23); Calcium 9.8 mg/dL (8.5-10.5); Carbon Dioxide 28 mmol/L (22-29); Chloride 89 mmol/L (98-107); Globulin 4.3 g/dL (1.3-4.6); Glomerular Filtration Rate 30.4 mL/min (90-130); Glucose 82 mg/dL (65-115); NT Pro B Type Natriuretic Pept 6551 pg/mL (0-125); Osmolality Calculated 291 mOsm/kg (285-295); Potassium 3.6 mmol/L (3.5-5.1); Sodium 131 mmol/L (136-145); Total Bilirubin 1.5 mg/dL (0.15-1.2); Total Protein 7.7 g/dL (6.6-8.7)
[2023-09-28 17:35] LABS: Creatinine Clr Calc Pharmacy 45.7761
--- NOTE | 2023-09-28 18:30 | P.HP_ITS ---
Providers/Chief Complaint 2 Primary Care Provider: Rochelle Rodriges MD Chief Complaint: resp distress History of Present Illness Eliseo Reyes is a 62 year old male nonischemic cardiomyopathy, EF 10-15%, status post AICD, pacemaker, atrial fibrillation, CKD, type 2 diabetes mellitus, DVT, on xarelto who presents [facility] due to weakness, fatigue, shortness of breath. Patient tells me that he was recently discharged on the hospital on Friday, he unfortunately could not brick picker his medications as altered drug did not have his medications, so yesterday he continued to have shortness of breath, fatigue, malaise, shortness of breath, with edema. Denies any fevers, chills, nausea, vomiting does report abdominal distention, nonspecific abdominal pain, no flank pain, no dysuria, hematuria, no cough, Review of Systems 2 Const: Reports: fatigue and malaise; Denies: fever(s) or chills Card: Denies: chest pain Resp: Reports: dyspnea GI: Reports: abdominal pain : Denies: flank pain Neuro: Denies: headache(s) Medications/Allergies Home Medications Medication Instructions Recorded Confirmed Last Taken Type allopurinol 100 mg tablet 100 mg PO DAILY 06/30/19 09/18/23 09/17/23 History citalopram 20 mg tablet 20 mg PO DAILY 06/30/19 09/18/23 09/17/23 History rivaroxaban 20 mg tablet (Xarelto) 20 mg PO DAILY 06/30/19 09/18/23 09/17/23 History terazosin 1 mg capsule 1 mg PO BEDTIME 06/30/19 09/18/23 09/16/23 History ergocalciferol (vitamin D2) 1,250 50,000 unit PO Q7D 03/02/23 09/18/23 09/17/23 History mcg (50,000 unit) capsule amiodarone 200 mg tablet 200 mg PO DAILY #90 tabs 03/14/23 09/18/23 09/17/23 Rx empagliflozin 25 mg tablet 25 mg PO QAM 04/29/23 09/18/23 09/17/23 History (Jardiance) aspirin 81 mg tablet,delayed 81 mg PO DAILY 08/29/23 09/18/23 09/17/23 History release omeprazole 40 mg capsule,delayed 40 mg PO DAILY 09/18/23 09/18/23 09/17/23 History release potassium chloride 20 mEq 20 meq PO DAILY 09/18/23 09/18/23 09/17/23 History tablet,extended release atorvastatin 80 mg tablet 40 mg (1/2 x 80 mg) PO QPM #1 tab 09/26/23 09/18/23 09/16/23 Rx bumetanide 1 mg tablet 1 mg PO BID #90 tabs 09/26/23 Unknown Rx insulin glargine 100 unit/mL 28 unit (0.28 mL) SUBCUT BID #10 mL 09/26/23 09/18/23 09/17/23 Rx subcutaneous solution (Lantus U-100 Insulin) insulin lispro 100 unit/mL See Rx Instructions .Route 09/26/23 Unknown Rx subcutaneous solution (Humalog .COMPLEX #10 mL U-100 Insulin) midodrine 5 mg tablet 5 mg PO TID #90 tabs 09/26/23 Unknown Rx polyethylene glycol 3350 17 gram 17 g PO BID #100 ea 09/26/23 Unknown Rx oral powder packet Allergies Allergy/AdvReac Type Severity Reaction Status Date / Time No Known Allergies Allergy Verified 08/29/23 08:53 PFSH Acute 2 PFSH: Medical History Arthritis Chronic kidney disease Atrial fibrillation Anticoagulation adequate with anticoagulant therapy Dyslipidemia NAKUL (obstructive sleep apnea) CHF (congestive heart failure) Diabetes DVT (deep venous thrombosis) Cardiomyopathy Surgical History S/P knee replacement S/P ICD (internal cardiac defibrillator) procedure Family History Father Stroke CAD (coronary artery disease) Sister Stroke Brother Stroke Other Hypertension Social History Smoking and tobacco/nicotine status: never used tobacco/nicotine Alcohol intake: never Substance/Drug Use: never Vitals/I&O/Wt Last Vital Signs Temp 97.7 F 09/28/23 14:58 Pulse 79 09/28/23 17:13 Resp 20 H 09/28/23 14:58 BP 111/73 09/28/23 17:13 Pulse Ox 93 09/28/23 17:13 O2 Del Method Nasal Cannula 09/28/23 17:13 O2 Flow Rate 3 09/28/23 17:13 Weight last 48 hrs Weight 122.47 kg Physical Exam 2 Const: COMMON NORMALS: no acute distress and patient oriented x3 HENMT: COMMON NORMALS: normocephalic HEAD & SCALP: normocephalic Eye: COMMON NORMALS: Equal, round and reactive pupils present Neck/C-Spine: COMMON NORMALS: no JVD Resp: COMMON NORMALS: normal respiratory effort, No retractions, No use of accessory muscles and clear to auscultation bilaterally AUSCULTATION: c rackles Cardio: COMMON NORMALS: no JVD, regular rate, regular rhythm, S1 normal heart sound present and S2 normal heart sound present RATE: regular rate RHYTHM: regular rhythm HEART SOUNDS: S1 normal heart sound present and S2 normal heart sound present GI: COMMON NORMALS: Normal to inspection, nondistended, normoactive bowel sounds present, Soft to palpation and non-tender : COMMON NORMALS: Yes no CVA tenderness Extremity: COMMON NORMALS: no calf tenderness and no pedal edema Neuro: COMMON NORMALS: patient oriented x3, CN's II-XII intact bilaterally and moves all extremities Psych: COMMON NORMALS: mental status grossly normal Sepsis: Is patient septic: No Focused sepsis exam performed: Yes Focused sepsis exam: dp/pt pulses decreased bilaterally, mild mottling bilateral lower extremity, cap refill>2 second Date exam was performed: 09/28/23 Time exam was performed: 18:33 Data 09/28/23 17:01 09/28/23 17:01 A&P Assessment and plan (1) Acute on chronic systolic heart failure: (2) CHF exacerbation: (3) DAYANNA (acute kidney injury): (4) Cardiomyopathy: Qualifiers: Cardiomyopathy type: unspecified Qualified Code(s): I42.9 - Cardiomyopathy, unspecified (5) Low output heart failure: (6) Secondary nonischemic congestive cardiomyopathy: (7) DVT (deep venous thrombosis): (8) Diabetes: Qualifiers: Diabetes mellitus complication detail: with other circulatory complications Diabetes mellitus complication status: with circulatory complication Diabetes mellitus penitentiary insulin use: with continuous churn buttermaker use D iabetes mellitus type: type 2 Qualified Code(s): E11.59 - Type 2 diabetes mellitus with other circulatory complications; Z79.4 - exterminator (current) use of insulin (9) Transaminitis: Plan Acute CHF exacerbation History of nonischemic cardiomyopathy ? EF 10 to 50% ? During his last hospitalization patient had evidence of cardiogenic shock, elevated lactic acid, transaminitis, decreased tissue perfusion, requiring dobutamine drip, with diuresis ? During his last hospitalization Entresto, Coreg, spironolactone were discontinued ? Plan ? Trend troponins -Lactic acid ? Bumex 1 mg IV push every 12 hours ? Continue home midodrine Monitor hemodynamics closely ? History of DVT continue Xarelto ? Continue amiodarone ? Type 2 diabetes mellitus, low-dose sliding scale, Lantus 10 units twice daily ? Fatigue, malaise, follow urine analysis, CRP, Pro-Pedrito, sed rate, lactic acid, troponin series ? Neurochecks, aspiration precautions, night stroke scale -Does have sacral DTI's, will have to monitor closely ? Full code Xarelto for DVT prophylaxis Attestations 2 Medical Necessity Statement*: Patient requires hospitalization, outpatient observation, for acute CHF exacerbation, fatigue, malaise Coding Level of Care Code Acute Code for Chg Fwd Diagnoses Acute on chronic systolic heart failure I50.23 CHF exacerbation I50.9 DAYANNA (acute kidney injury) N17.9 Cardiomyopathy I42.9 Cardiomyopathy type: unspecified Low output heart failure I50.9 Secondary nonischemic congestive cardiomyopathy I42.0 DVT (deep venous thrombosis) I82.409 Type 2 diabetes mellitus with other circulatory complication, with long-term current use of insulin E11.59; Z79.4 Diabetes mellitus complication detail: with other circulatory complications Diabetes mellitus complication status: with circulatory complication Diabetes mellitus penitentiary insulin use: with continuous churn buttermaker use Diabetes mellitus type: type 2 Transaminitis R74.01
--- NOTE | 2023-09-28 18:35 | ECG_ITS ---
[facility] Test Date: 2023-09-28 Pat Name: Eliseo Reyes Department: Room: Gender: Male Senior Product Manager: : 1960 Requested By: Marco Rust Order Number: [id number] Alek MD: Oz Saenz M.D. Measurements Intervals [place] Rate: 74 P: 0 MS: 0 QRS: 137 QRSD: 139 T: 24 QT: 458 QTc: 508 Interpretive Statements ATRIAL FIBRILLATION INTRAVENTRICULAR CONDUCTION DELAY [130+ ms QRS DURATION] POSSIBLE RIGHT VENTRICULAR HYPERTROPHY [SOME/ALL OF: PROMINENT R IN V1, LATE TRANSITION, RAD, SOY, SSS] POSSIBLE ANTERIOR MYOCARDIAL INFARCTION , PROBABLY OLD [30 ms Q WAVE IN V3/V4, OR R < 0.2 mV IN V4] Compared to ECG 09/28/2023 15:01:22 No significant changes Electronically Signed On 09-29-2023 14:09:14 CDT by Oz Saenz M.D. [id number]
[2023-09-28 19:05] LABS: Glucose Point of Care 84 mg/dL (70-110)
[2023-09-28 19:12] LABS: Erythrocyte Sedimentation Rate 20 mm/hr (0-10)
[2023-09-28 19:13] LABS: Lactic Sepsis W/Reflex 1.8 mmol/L (0.5-2.2)
[2023-09-28 19:25] LABS: C Reactive Protein 54.7 mg/L (0.0-4.9)
[2023-09-28 19:54] LABS: Troponin(5th) Baseline 84 ng/L (0-15)
[2023-09-28 20:41] LABS: Glucose Point of Care 69 mg/dL (70-110)
--- NOTE | 2023-09-28 21:08 | ECG_ITS ---
[facility] Test Date: 2023-09-28 Pat Name: Eliseo Reyes Department: Room: 101 Gender: Male Report Developer: : 1960 Requested By: Marco Rust Order Number: [id number] Alek MD: Oz Saenz M.D. Measurements Intervals [place] Rate: 79 P: 0 [place]: 0 QRS: 122 QRSD: 145 T: -33 QT: 459 QTc: 528 Interpretive Statements ATRIAL FIBRILLATION WITH ABERRANT CONDUCTION OR VENTRICULAR PREMATURE COMPLEXES INTRAVENTRICULAR CONDUCTION DELAY [130+ ms QRS DURATION] Compared to ECG 09/28/2023 18:35:49 Ventricular premature complex(es) now present Aberrant conduction of supraventricular beat(s) now present Myocardial infarct finding no longer present Electronically Signed On 09-29-2023 14:16:05 CDT by Oz Saenz M.D. [id number]
[2023-09-28 21:09] LABS: Glucose Point of Care 78 mg/dL (70-110)
[2023-09-28] MEDS: midodrine 5 mg TABLET PO (21:46)
[2023-09-28] MEDS: pantoprazole 40 mg SDV IVP (21:48)
[2023-09-28 21:50] LABS: Glucose Point of Care 127 mg/dL (70-110)
[2023-09-28 22:27] LABS: Thyroid Stimulating Hormone 3.87 uIU/mL (0.27-4.20)
[2023-09-28 23:10] LABS: Adenovirus Not Detected (NOT DETECT); Chlamydia Pneumoniae Not Detected (NOT DETECT); Coronavirus 229E,HKU1,NL63,OC4 Not Detected (NOT DETECT); Human Metapneumovirus Not Detected (NOT DETECT); Human Rhinovirus/Enterovirus Not Detected (NOT DETECT); Influenza A Not Detected (NOT DETECT); Influenza A H1 Not Detected (NOT DETECT); Influenza A H1-2009 Not Detected (NOT DETECT); Influenza A H3 Not Detected (NOT DETECT); Influenza B Not Detected (NOT DETECT); Mycoplasma Pneumoniae Not Detected (NOT DETECT); Parainfluenza Virus Type 1 Not Detected (NOT DETECT); Parainfluenza Virus Type 2 Not Detected (NOT DETECT); Parainfluenza Virus Type 3 Not Detected (NOT DETECT); Parainfluenza Virus Type 4 Not Detected (NOT DETECT); Respiratory Syncytial Virus A Not Detected (NOT DETECT); Respiratory Syncytial Virus B Not Detected (NOT DETECT); SARS-COV-2 Not Detected (NOT DETECT)
[2023-09-29] VITALS (10 sets, daily range): BP systolic 99–126; BP diastolic 40–83; PULSE 24–88; RESP 16–25; TEMP 36.4–37.2; O2SAT 90–96
[2023-09-29 00:53] LABS: Glucose Point of Care 70 mg/dL (70-110)
[2023-09-29 01:06] LABS: Basophils % 0.2 %; Eosinophils % 0.1 %; Hematocrit 37.6 % (37-53); Lymphocytes # 1.7 10^3/uL (0.8-4.8); Lymphocytes % 18.6 %; Mean Corpuscular HGB Conc 31.1 g/dL (30-55); Mean Corpuscular Volume 83.6 fl (82-101); Mean Platelet Volume 9.8 fL (7.4-10.4); Monocytes # 0.9 10^3/uL (0.2-0.9); Monocytes % 9.6 %; Neutrophils # 6.47 10^3/uL (1.8-7.7); Neutrophils % 71.1 %; Nucleated Red Blood Cells % 0.2 %; Platelet Count 301 10^3/cmm (157-399); Red Cell Distribution Width 19.9 % (12.1-15.1)
[2023-09-29 01:31] LABS: Glucose Point of Care 126 mg/dL (70-110)
[2023-09-29 01:33] LABS: Alanine Aminotransferase 94 U/L (0-41); Albumin Level 3.4 g/dL (3.5-5.2); Alkaline Phosphatase 236 U/L (40-130); Aspartate Amino Transferase 42 U/L (0-40); Chloride 89 mmol/L (98-107); Glucose 79 mg/dL (65-115); Potassium 3.8 mmol/L (3.5-5.1); Sodium 130 mmol/L (136-145)
[2023-09-29 01:34] LABS: Troponin 5 6HR 80.05 ng/L (0-15)
[2023-09-29 01:39] LABS: Troponin 5 6HR Delta -3.95 ng/L (0-12)
[2023-09-29 01:40] LABS: NT Pro B Type Natriuretic Pept 7052 pg/mL (0-125)
[2023-09-29 01:50] LABS: Anion Gap 17.8 (5-19); Blood Urea Nitrogen 75 mg/dL (8-23); Calcium 9.3 mg/dL (8.5-10.5); Carbon Dioxide 27 mmol/L (22-29); Creatinine Clr Calc Pharmacy 43.7858; Globulin 3.2 g/dL (1.3-4.6); Glomerular Filtration Rate 28.9 mL/min (90-130); Magnesium 2.4 mg/dL (1.7-2.3); Osmolality Calculated 291 mOsm/kg (285-295); Phosphorus 4.3 mg/dL (2.5-4.5); Total Bilirubin 1.7 mg/dL (0.15-1.2); Total Protein 6.6 g/dL (6.6-8.7)
--- NOTE | 2023-09-29 03:06 | ECG_ITS ---
[facility] Test Date: 2023-09-29 Pat Name: Eliseo Reyes Department: Room: 101 Gender: Male Barrel Handler: : 1960 Requested By: Marco Rust Order Number: [id number] Alek MD: Oz Saenz M.D. Measurements Intervals [place] Rate: 79 P: 0 [place]: 0 QRS: 125 QRSD: 146 T: -60 QT: 452 QTc: 519 Interpretive Statements ATRIAL FIBRILLATION WITH ABERRANT CONDUCTION OR VENTRICULAR PREMATURE COMPLEXES RIGHT AXIS DEVIATION [QRS AXIS > 100] INTRAVENTRICULAR CONDUCTION DELAY [130+ ms QRS DURATION] Compared to ECG 09/28/2023 21:08:26 Right-axis deviation now present Electronically Signed On 09-29-2023 14:16:31 CDT by Oz Saenz M.D. [id number]
[2023-09-29 06:49] LABS: Glucose Point of Care 108 mg/dL (70-110)
[2023-09-29 07:45] LABS: Glucose Point of Care 94 mg/dL (70-110)
[2023-09-29] MEDS: citalopram 20 mg Tablet PO (08:15)
[2023-09-29] MEDS: polyethylene glycol 3350 Pkt 17 gm PO (08:15)
[2023-09-29] MEDS: midodrine 5 mg TABLET PO ×3 (08:15→19:54)
[2023-09-29] MEDS: allopurinol 100 mg Tablet PO (08:15)
[2023-09-29] MEDS: aspirin 81 mg EC Tablet PO (08:15)
[2023-09-29] MEDS: rivaroxaban 10 mg Tablet 20 MG PO (08:15)
[2023-09-29] MEDS: amiodarone 200 mg Tablet PO (08:15)
--- NOTE | 2023-09-29 09:30 | US_ITS ---
WS: [id number] RIGHT UPPER QUADRANT ULTRASOUND HISTORY: Pain. COMPARISON: 09/18/2023 Liver: 17.8 cm in length. Mild enlargement of the liver with possible cirrhosis and hepatic steatosis . There is a small amount of fluid adjacent to the liver. Portal Vein: Increased phasicity of the portal vein. Gallbladder: Normally distended gallbladder with no stones or wall thickening. CBD: 0.4 cm Pancreas: Not visualized. Right kidney: 10.1 cm in length. Poorly visualized. No obstruction. Aorta and IVC: Poorly visualized. No ascites. US/US abdomen limited [id number] IMPRESSION: 1. Technically very limited and difficult evaluation of the RIGHT upper quadra nt due to patient's body habitus. 2. No cholelithiasis. 3. Small amount of ascites. 4. Mild enlargement of the liver with hepatic steatosis and possible cirrhosis .
[2023-09-29] MEDS: bumetanide 0.25 mg/mL SDV 4 mL 1 MG IVP ×2 (10:54→19:54)
[2023-09-29] MEDS: ondansetron 2 mg/ML SDV 2 mL 4 MG IVP ×2 (10:54→21:11)
[2023-09-29 11:12] LABS: Glucose Point of Care 198 mg/dL (70-110)
--- NOTE | 2023-09-29 15:17 | PM.PN ---
Subjective Subjective: Patient was seen this morning, he does tell me that he feels a bit better, still experiencing shortness of breath, Vitals/I&O/Wt Last Vital Signs Temp 98.4 F 09/29/23 12:00 Pulse 80 09/29/23 12:00 Resp 16 09/29/23 12:00 BP 106/67 09/29/23 12:00 Pulse Ox 95 09/29/23 11:54 O2 Del Method Room Air 09/29/23 04:00 O2 Flow Rate 95 09/28/23 21:05 09/29/23 09/29/23 09/29/23 06:59 14:59 22:59 Intake Total 100 / 200 480 / 480 Output Total 500 / 500 Balance -400 / -300 480 / 480 Weight last 48 hrs Weight 123.377 kg Weight 122.47 kg Weight 122.47 kg Physical Exam Const: COMMON NORMALS: no acute distress and patient oriented x3 Resp: COMMON NORMALS: normal respiratory effort, No retractions, No use of accessory muscles and clear to auscultation bilaterally AUSCULTATION: clear to auscultation bilaterally Cardio: COMMON NORMALS: regular rate, regular rhythm, S1 normal heart sound present and S2 normal heart sound present RATE: regular rate RHYTHM: regular rhythm HEART SOUNDS: S1 normal heart sound present and S2 normal heart sound present GI: COMMON NORMALS: Normal to inspection, nondistended, normoactive bowel sounds present and non-tender Extremity: COMMON NORMALS: no pedal edema Neuro: COMMON NORMALS: patient oriented x3 Psych: COMMON NORMALS: mental status grossly normal Urinary Catheter Management: Mathew: Cath Placed During This Visit: yes Reason for Continuing Indwelling Catheter: Acute Urinary Retention or Obstruction Urinary Catheter Date of Insertion: 09/29/23 Urinary Catheter Time of Insertion: 02:32 Data 09/29/23 01:00 09/29/23 01:00 Micro: Microbiology 09/28/23 21:34 Blood Culture - Preliminary Blood SPECIMEN COLLECTED 09/28/23 21:30 Blood Culture - Preliminary Blood SPECIMEN COLLECTED A&P Assessment and plan (1) Acute on chronic systolic heart failure: (2) CHF exacerbation: (3) DAYANNA (acute kidney injury): (4) Cardiomyopathy: Qualifiers: Cardiomyopathy type: unspecified Qualified Code(s): I42.9 - Cardiomyopathy, unspecified (5) Low output heart failure: (6) Secondary nonischemic congestive cardiomyopathy: (7) DVT (deep venous thrombosis): (8) Diabetes: Qualifiers: Diabetes mellitus complication detail: with other circulatory complications Diabetes mellitus complication status: with circulatory complication Diabetes mellitus half-way insulin use: with half-way use Diabetes mellitus type: type 2 Qualified Code(s): E11.59 - Type 2 diabetes mellitus with other circulatory complications; Z79.4 - intermediate project manager (current) use of insulin (9) Transaminitis: Plan Acute CHF exacerbation History of nonischemic cardiomyopathy ? EF 10 to 50% ? During his last hospitalization patient had evidence of cardiogenic shock, elevated lactic acid, transaminitis, decreased tissue perfusion, requiring dobutamine drip, with diuresis ? During his last hospitalization Entresto, Coreg, spironolactone were discontinued ? Plan ? Trend troponins 6-hour 80 -Lactic acid 1.8 ? Bumex 1 mg IV push every 12 hours ? Continue home midodrine Monitor hemodynamics closely ? History of DVT continue Xarelto ? Continue amiodarone ? Type 2 diabetes mellitus, low-dose sliding scale, Lantus 10 units twice daily ? Fatigue, malaise, monitor, PT OT ? Neurochecks, aspiration precautions, night stroke scale -Does have sacral DTI's, will have to monitor closely ? Full code Xarelto for DVT prophylaxis Attestations Medical Necessity Statement*: Patient requires hospitalization for acute CHF exacerbation Diagnoses Acute on chronic systolic heart failure I50.23 CHF exacerbation I50.9 DAYANNA (acute kidney injury) N17.9 Cardiomyopathy I42.9 Cardiomyopathy type: unspecified Low output heart failure I50.9 Secondary nonischemic congestive cardiomyopathy I42.0 DVT (deep venous thrombosis) I82.409 Type 2 diabetes mellitus with other circulatory complication, with long-term current use of insulin E11.59; Z79.4 Diabetes mellitus complication detail: with other circulatory complications Diabetes mellitus complication status: with circulatory complication Diabetes mellitus supervisor intermediates insulin use: with half-way use Diabetes mellitus type: type 2 Transaminitis R74.01
[2023-09-29 18:19] LABS: Glucose Point of Care 215 mg/dL (70-110)
[2023-09-29] MEDS: pantoprazole 40 mg SDV IVP (19:54)
[2023-09-29 20:45] LABS: Glucose Point of Care 259 mg/dL (70-110)
[2023-09-29] MEDS: morphine 4 mg/mL SDV 1 mL 2 MG IVP (22:17)
[2023-09-30] VITALS (10 sets, daily range): BP systolic 96–122; BP diastolic 70–77; PULSE 68–87; RESP 15–21; TEMP 36.4–37.2; O2SAT 94–98
[2023-09-30 05:00] LABS: Basophils % 0.3 %; Eosinophils % 0.2 %; Hematocrit 38.6 % (37-53); Lymphocytes # 1.9 10^3/uL (0.8-4.8); Lymphocytes % 19.7 %; Mean Corpuscular HGB Conc 30.6 g/dL (30-55); Mean Corpuscular Hemoglobin 25.7 pg (27-33); Mean Corpuscular Volume 83.9 fl (82-101); Mean Platelet Volume 10.4 fL (7.4-10.4); Monocytes # 1.1 10^3/uL (0.2-0.9); Monocytes % 11.3 %; Neutrophils # 6.47 10^3/uL (1.8-7.7); Nucleated Red Blood Cells % 0 %; Platelet Count 303 10^3/cmm (157-399); Red Cell Distribution Width 19.9 % (12.1-15.1); White Blood Count 9.51 10^3/uL (3.29-11.43)
[2023-09-30 05:26] LABS: Alanine Aminotransferase 140 U/L (0-41); Albumin Level 2.9 g/dL (3.5-5.2); Alkaline Phosphatase 239 U/L (40-130); Aspartate Amino Transferase 181 U/L (0-40); Calcium 9.1 mg/dL (8.5-10.5); Carbon Dioxide 22 mmol/L (22-29); Chloride 88 mmol/L (98-107); Creatinine Clr Calc Pharmacy 36.0363; Globulin 4.1 g/dL (1.3-4.6); Glucose 197 mg/dL (65-115); Magnesium 2.4 mg/dL (1.7-2.3); Osmolality Calculated 295 mOsm/kg (285-295); Phosphorus 5.5 mg/dL (2.5-4.5); Sodium 127 mmol/L (136-145); Total Bilirubin 1.8 mg/dL (0.15-1.2)
[2023-09-30 05:37] LABS: Anion Gap 21.8 (5-19); Blood Urea Nitrogen 85 mg/dL (8-23); Potassium 4.8 mmol/L (3.5-5.1)
[2023-09-30] MEDS: ondansetron 2 mg/ML SDV 2 mL 4 MG IVP (06:22)
[2023-09-30 06:28] LABS: Glucose Point of Care 202 mg/dL (70-110)
[2023-09-30] MEDS: insulin lispro 100 unit/1 mL SUBCUT ×3 (08:22→18:38)
[2023-09-30] MEDS: allopurinol 100 mg Tablet PO (08:23)
[2023-09-30] MEDS: amiodarone 200 mg Tablet PO (08:23)
[2023-09-30] MEDS: rivaroxaban 10 mg Tablet 20 MG PO (08:23)
[2023-09-30] MEDS: aspirin 81 mg EC Tablet PO (08:24)
[2023-09-30] MEDS: midodrine 5 mg TABLET PO ×3 (08:24→20:56)
[2023-09-30] MEDS: citalopram 20 mg Tablet PO (08:24)
[2023-09-30 09:52] LABS: C Reactive Protein 44.4 mg/L (0.0-4.9); Gamma Glutamyl Transferase 331 U/L (8-61); Lipase 23 U/L (13-60)
[2023-09-30 09:53] LABS: Total Bilirubin 1.8 mg/dL (0.15-1.2)
[2023-09-30 09:59] LABS: Procalcitonin 0.52 ng/mL (0-0.5)
[2023-09-30 12:19] LABS: Glucose Point of Care 303 mg/dL (70-110)
--- NOTE | 2023-09-30 12:22 | PC.OT ---
Therapist attempted OT evaluation this PM though patient declined. Will attempt later if possible. Ramesh Riggs, OTR/L
[2023-09-30] MEDS: metroNIDAZOLE IV 500 MG/100 ML PREMIX 100 MG IV ×2 (16:29→22:57)
[2023-09-30] MEDS: ciprofloxacin 400 MG/200 ML PREMIX 200 MG IV (16:33)
[2023-09-30 17:01] LABS: Anion Gap 19.3 (5-19); Calcium 9.2 mg/dL (8.5-10.5); Carbon Dioxide 23 mmol/L (22-29); Chloride 85 mmol/L (98-107); Creatinine Clr Calc Pharmacy 33.6339; Glomerular Filtration Rate 21.2 mL/min (90-130); Glucose 231 mg/dL (65-115); Osmolality Calculated 289 mOsm/kg (285-295); Potassium 4.3 mmol/L (3.5-5.1); Sodium 123 mmol/L (136-145)
[2023-09-30 17:08] LABS: Blood Urea Nitrogen 85 mg/dL (8-23)
--- NOTE | 2023-09-30 17:10 | P.PN_ITS ---
Subjective 2 Subjective: Patient was seen this morning, denies any fevers, chills, cough does report right upper quadrant tenderness to palpation, no nausea, no vomiting his edema is improving we discussed his DAYANNA, holding diuresis, watching his kidney function, family is concerned about his persistent right upper quadrant pain, likely related to his severe heart failure, hepatic congestion, but certainly could be cholecystitis, discussed ultrasound results will order inflammatory markers, repeat liver function studies decide if he qualifies for antibiotic therapy Vitals/I&O/Wt Last Vital Signs Temp 97.8 F 09/30/23 16:00 Pulse 73 09/30/23 16:00 Resp 21 H 09/30/23 16:00 BP 103/73 09/30/23 16:00 Pulse Ox 95 09/30/23 16:00 O2 Del Method Nasal Cannula 09/30/23 16:00 O2 Flow Rate 3.5 09/30/23 09:22 09/30/23 09/30/23 09/30/23 06:59 14:59 22:59 Intake Total 250 / 830 480 / 480 Output Total 600 / 1500 1150 / 1150 Balance -350 / -670 480 / 480 -1150 / -670 Weight last 48 hrs Weight 122.924 kg Weight 123.377 kg Weight 122.47 kg Physical Exam 2 Const: COMMON NORMALS: no acute distress and patient oriented x3 Resp: COMMON NORMALS: normal respiratory effort, No retractions, No use of accessory muscles and clear to auscultation bilaterally AUSCULTATION: clear to auscultation bilaterally Cardio: COMMON NORMALS: regular rate, regular rhythm, S1 normal heart sound present and S2 normal heart sound present RATE: regular rate RHYTHM: r egular rhythm HEART SOUNDS: S1 normal heart sound present and S2 normal heart sound present GI: COMMON NORMALS: Normal to inspection, nondistended, normoactive bowel sounds present OTHER: Right upper quadrant tenderness Extremity: COMMON NORMALS: no pedal edema Neuro: COMMON NORMALS: patient oriented x3 Psych: COMMON NORMALS: mental status grossly normal Urinary Catheter Management: Mathew: Cath Placed During This Visit: yes Reason for Continuing Indwelling Catheter: Accurate Measurement of Urinary Output in Critically Ill Patients Urinary Catheter Date of Insertion: 09/29/23 Urinary Catheter Time of Insertion: 02:32 Data 09/30/23 03:25 09/30/23 16:11 Micro: Microbiology 09/28/23 21:34 Blood Culture - Preliminary Blood NEGATIVE TO DATE 09/28/23 21:30 Blood Culture - Preliminary Blood NEGATIVE TO DATE A&P Assessment and plan (1) Acute on chronic systolic heart failure: (2) CHF exacerbation: (3) DAYANNA (acute kidney injury): (4) Cardiomyopathy: Qualifiers: Cardiomyopathy type: unspecified Qualified Code(s): I42.9 - Cardiomyopathy, unspecified (5) Low output heart failure: (6) Secondary nonischemic congestive cardiomyopathy: (7) DVT (deep venous thrombosis): (8) Diabetes: Qualifiers: Diabetes mellitus complication detail: with other circulatory complications Diabetes mellitus complication status: with circulatory complication Diabetes mellitus retirement insulin use: with retirement use D iabetes mellitus type: type 2 Qualified Code(s): E11.59 - Type 2 diabetes mellitus with other circulatory complications; Z79.4 - intermediate (current) use of insulin (9) Transaminitis: Plan Acute CHF exacerbation History of nonischemic cardiomyopathy ? EF 10 to 50% ? During his last hospitalization patient had evidence of cardiogenic shock, elevated lactic acid, transaminitis, decreased tissue perfusion, requiring dobutamine drip, with diuresis ? During his last hospitalization Entresto, Coreg, spironolactone were discontinued ? Plan ? Trend troponins 6-hour 80 -Lactic acid 1.8 ? Bumex 1 mg IV push every 12 hours currently on hold as creatinine is up to 3 -DAYANNA, creatinine up to 3, potentially cardiorenal and or diuresis, hold off on further diuresis, consult nephrology ? Continue home midodrine Monitor hemodynamics closely ? History of DVT continue Xarelto ? Continue amiodarone ? Type 2 diabetes mellitus, low-dose sliding scale, Lantus 10 units twice daily ? Fatigue, malaise, monitor, PT OT Right upper quadrant pain 1. Technically very limited and difficult evaluation of the RIGHT upper quadrant due to patient's body habitus. 2. No cholelithiasis. 3. Small amount of ascites. 4. Mild enlargement of the liver with hepatic steatosis and possible cirrhosis. ? Elevated LFTs, T. bili, alk phos, elevated CRP, Pro-Ca ? Complaints of right upper quadrant pain to palpation ? Will treat for acute cholecystitis, ciprofloxacin, Flagyl -Cardiac cirrhosis ? Neurochecks, aspiration precautions, night stroke scale -Does have sacral DTI's, will have to monitor closely ? Full code Xarelto for DVT prophylaxis Attestations 2 Medical Necessity Statement*: Patient requires hospitalization for DAYANNA, cardiorenal syndrome, CHF, concerns for cholecystitis Diagnoses Acute on chronic systolic heart failure I50.23 CHF exacerbation I50.9 DAYANNA (acute kidney injury) N17.9 Cardiomyopathy I42.9 Cardiomyopathy type: unspecified Low output heart failure I50.9 Secondary nonischemic congestive cardiomyopathy I42.0 DVT (deep venous thrombosis) I82.409 Type 2 diabetes mellitus with other circulatory complication, with long-term current use of insulin E11.59; Z79.4 Diabetes mellitus complication detail: with other circulatory complications Diabetes mellitus complication status: with circulatory complication Diabetes mellitus intermediate designer insulin use: with intermediate designer use Diabetes mellitus type: type 2 Transaminitis R74.01
[2023-09-30] MEDS: atorvastatin 40 mg Tablet DOBHOFF (17:45)
[2023-09-30 17:47] LABS: Glucose Point of Care 261 mg/dL (70-110)
[2023-09-30] MEDS: pantoprazole 40 mg SDV IVP (19:15)
[2023-09-30 20:45] LABS: Glucose Point of Care 216 mg/dL (70-110)
--- NOTE | 2023-09-30 23:09 | P.CONIM_ITS ---
Providers/Reason For Consult 2 Consulting Physician/Specialty*: aric carrasco md / telenephrology Reason for Consult*: anastasiia on ckd, hyponatremia Requesting Physician: DR aMrco Rust Attending Physician: Marco Rust MD Primary Care Provider: Rochelle Rodriges MD History of Present Illness History of Present Illness Eliseo Reyes is a 62 year old male with severe heart failure EF of approximately 10 to 15% history of AICD, atrial fibrillation, CKD stage IIIb 4 with baseline creatinine 1.5 to 2.5 mg/dL, type 2 diabetes, DVT. He had a recent hospitalization with discharge on September 26, 2023 for cardiogenic shock with elevated lactate increased transaminases tissue hypoperfusion with mottling of his left leg he was on a dobutamine drip diuretics. Dobutamine was weaned off and the patient was discharged home on Bumex, Xarelto, Jardiance, potassium, furosemide. His Entresto, Coreg and spironolactone were discontinued. The patient was readmitted on October 04, 2019 for as he could not cloth picker his medications and he felt weak with buildup of fluid shortness of breath fatigue. On admission his creatinine was 2.2 with a sodium of 131. He was felt to be in low output cardiac failure. He was treated with Bumex again. The patient has had a diuresis and feels better in the hospital unfortunately his sodium has decreased and his creatinine has risen and renal was asked to see the patient. Review of Systems 2 Narrative: At home he had abdominal pain he was weak lethargic swollen dyspnea on exertion orthopnea and leg pains. He states he is feeling better in the hospital however he is not getting out of bed much. Medications/Allergies Home Medications Medication Instructions Recorded Confirmed Last Taken Type allopurinol 100 mg tablet 100 mg PO DAILY 06/30/19 09/28/23 09/17/23 History citalopram 20 mg tablet 20 mg PO DAILY 06/30/19 09/28/23 09/17/23 History rivaroxaban 20 mg tablet (Xarelto) 20 mg PO DAILY 06/30/19 09/28/23 09/17/23 History terazosin 1 mg capsule 1 mg PO BEDTIME 06/30/19 09/28/23 09/16/23 History ergocalciferol (vitamin D2) 1,250 50,000 unit PO Q7D 03/02/23 09/28/23 09/17/23 History mcg (50,000 unit) capsule amiodarone 200 mg tablet 200 mg PO DAILY #90 tabs 03/14/23 09/28/23 09/17/23 Rx empagliflozin 25 mg tablet 25 mg PO QAM 04/29/23 09/28/23 09/17/23 History (Jardiance) aspirin 81 mg tablet,delayed 81 mg PO DAILY 08/29/23 09/28/23 09/17/23 History release omeprazole 40 mg capsule,delayed 40 mg PO DAILY 09/18/23 09/28/23 09/17/23 History release potassium chloride 20 mEq 20 meq PO DAILY 09/18/23 09/28/23 09/17/23 History tablet,extended release atorvastatin 80 mg tablet 40 mg (1/2 x 80 mg) PO QPM #1 tab 09/26/23 09/28/23 09/16/23 Rx bumetanide 1 mg tablet 1 mg PO BID #90 tabs 09/26/23 09/28/23 Unknown Rx insulin glargine 100 unit/mL 28 unit (0.28 mL) SUBCUT BID #10 mL 09/26/23 09/28/23 09/17/23 Rx subcutaneous solution (Lantus U-100 Insulin) insulin lispro 100 unit/mL See Rx Instructions .Route 09/26/23 09/28/23 Unknown Rx subcutaneous solution (Humalog .COMPLEX #10 mL U-100 Insulin) midodrine 5 mg tablet 5 mg PO TID #90 tabs 09/26/23 09/28/23 Unknown Rx polyethylene glycol 3350 17 gram 17 g PO BID #100 ea 09/26/23 09/28/23 Unknown Rx oral powder packet Allergies Allergy/AdvReac Type Severity Reaction Status Date / Time No Known Allergies Allergy Verified 08/29/23 08:53 Current Medications Generic Name Dose Route Start Last Admin Trade Name Freq PRN Reason Stop Dose Admin Allopurinol 100 mg 09/29/23 09:00 09/30/23 08:23 Allopurinol 100 Mg Tablet PO 100 mg DAILY DEMARCO Administration Amiodarone HCl 200 mg 09/29/23 09:00 09/30/23 08:23 Amiodarone 200 Mg Tablet PO 200 mg DAILY DEMARCO Administration Aspirin 81 mg 09/29/23 09:00 09/30/23 08:24 Aspirin 81 Mg Ec Tablet PO 81 mg DAILY DEMARCO Administration Atorvastatin Calcium 40 mg 09/29/23 18:00 09/30/23 17:45 Atorvastatin 40 Mg Tablet DOBHOFF 40 mg QPM DEMARCO Administration Citalopram Hydrobromide 20 mg 09/29/23 09:00 09/30/23 08:24 Citalopram 20 Mg Tablet PO 20 mg DAILY DEMARCO Administration Ciprofloxacin/Dextrose 400 mg in 200 mls @ 200 mls/hr 09/30/23 16:00 09/30/23 18:25 Cipro IV Infused Q12H DEMARCO Infusion Protocol Metronidazole 500 mg in 100 mls @ 100 mls/hr 09/30/23 15:30 09/30/23 22:57 Flagyl Iv IV 100 mls/hr Q8H DEMARCO Administration Protocol Insulin Human Lispro 0 unit 09/29/23 08:00 09/30/23 18:38 Insulin Lispro 100 Unit/1 Ml SUBCUT 10 unit TIDWM DEMARCO Administration Protocol Midodrine 5 mg 09/28/23 21:00 09/30/23 20:56 Midodrine 5 Mg Tablet PO 5 mg TID DEMARCO Administration Morphine Sulfate 2 mg 09/29/23 22:02 09/29/23 22:17 Morphine 4 Mg/Ml Sdv 1 Ml IVP 2 mg Q4H PRN Administration SEVERE PAIN Ondansetron HCl 4 mg 09/28/23 20:22 09/30/23 06:22 Ondansetron 2 Mg/Ml Sdv 2 Ml IVP 4 mg Q8H PRN Administration vomiting, or N/V if npo Pantoprazole Sodium 40 mg 09/28/23 20:22 09/30/23 19:15 Pantoprazole 40 Mg Sdv IVP 40 mg Q24H DEMARCO Administration Polyethylene Glycol 17 gm 09/29/23 09:00 09/30/23 17:44 Polyethylene Glycol 3350 Pkt 17 Gm PO Not Given BID DEMARCO Rivaroxaban 20 mg 09/29/23 09:00 09/30/23 08:23 Rivaroxaban 10 Mg Tablet PO 20 mg DAILY DEMARCO Administration Terazosin HCl 1 mg 09/28/23 21:00 09/30/23 20:56 Terazosin 1 Mg Capsule PO 1 mg BEDTIME DEMARCO Administration PFSH Acute 2 PFSH: Medical History Arthritis Chronic kidney disease Atrial fibrillation Anticoagulation adequate with anticoagulant therapy Dyslipidemia NAKUL (obstructive sleep apnea) CHF (congestive heart failure) Diabetes DVT (deep venous thrombosis) Cardiomyopathy Surgical History S/P knee replacement S/P ICD (internal cardiac defibrillator) procedure Family History Father Stroke CAD (coronary artery disease) Sister Stroke Brother Stroke Other Hypertension Social History Smoking and tobacco/nicotine status: never used tobacco/nicotine Alcohol intake: never Substance/Drug Use: never Vitals/I&O/Wt Last Vital Signs Temp 98.9 F 09/30/23 20:00 Pulse 70 09/30/23 22:00 Resp 20 H 09/30/23 20:00 BP 96/70 09/30/23 20:00 Pulse Ox 94 09/30/23 20:00 O2 Del Method Nasal Cannula 09/30/23 20:00 O2 Flow Rate 3.5 09/30/23 09:22 09/30/23 09/30/23 10/01/23 14:59 22:59 06:59 Intake Total 480 / 480 300 / 780 Output Total 1150 / 1150 Balance 480 / 480 -850 / -370 Weight last 48 hrs Weight 122.924 kg Weight 123.377 kg Physical Exam 2 Narrative: Vital signs noted. Blood pressure on low side but acceptable for severe heart failure. Comfortable in bed no apparent distress. HEENT normocephalic atraumatic neck is supple no JVP. Lungs good air movement Heart irregular positive S1-S2. Abdomen is soft positive bowel sounds extremities improved edema. Neuro awake alert oriented x 3. Urinary Catheter Management: Mathew: Cath Placed During This Visit: yes Reason for Continuing Indwelling Catheter: Accurate Measurement of Urinary Output in Critically Ill Patients Urinary Catheter Date of Insertion: 09/29/23 Urinary Catheter Time of Insertion: 02:32 Data 09/30/23 03:25 09/30/23 16:11 Micro: Microbiology 09/28/23 21:34 Blood Culture - Preliminary Blood NEGATIVE TO DATE 09/28/23 21:30 Blood Culture - Preliminary Blood NEGATIVE TO DATE A&P Assessment and plan (1) ANASTASIIA (acute kidney injury): The patient is a 62-year-old gentleman with heart failure reduced EF of 10 to 15% status post ICD, diabetes, DVT, obesity question of sleep apnea with acute on chronic renal failure 1. CKD stage IIIb baseline creatinine 1.5 to 2.5 mg/dL abdominal ultrasound reviewed showing cirrhosis and hepatic steatosis. Mild ascites right kidney 10.1 cm poorly visualized does not comment on left kidney. However recent abdominal CT scan was normal. The patient has good urine output this is unlikely to be obstructive uropathy. The patient's urinalysis was reviewed. His protein goes from negative to 2+ at this time we will check a urine albumin creatinine and urine protein creatinine. The patient has glucose in his urine likely from his Jardiance. Most likely the patient has cardiorenal syndrome with some degree of diabetic nephrosclerosis. 2. Acute kidney injury likely from cardiorenal syndrome from poorly controlled heart failure reduced EF and diuresis. At this time the data would likely suggest to continue to monitor goal-directed medical therapy and will discuss with cardiology if we should restart an ARB. He appears euvolemic at this time I am okay with temporarily holding his diuretics. 3. Hyponatremia we will give a dose of tolvaptan and monitor off of diuretics. Will check urine electrolytes. Will check TSH will check cortisol. Most likely his hyponatremia is from acute on chronic systolic heart failure and acute on chronic renal failure. Medications reviewed. Case discussed in detail with the patient. Patient was seen using audiovisual equipment with the aid of a nurse. The patient consented to telehealth visit. Plan see above Consult Attestations 2 Medical Necessity Statement: Acute on chronic heart failure reduced EF, acute on chronic kidney failure, acute on chronic hyponatremia. Time Spent in Patient Care: Greater than 35 minutes (>than 50% of time spent in counselling and/or direct pt care on unit) . Coding Level of Care Code Acute Code for [facility] Diagnoses ANASTASIIA (acute kidney injury) N17.9
[2023-09-30 23:56] LABS: Uric Acid 14.1 mg/dL (3.4-7.0)
[2023-10-01] VITALS (11 sets, daily range): BP systolic 93–125; BP diastolic 60–96; PULSE 69–84; RESP 16–22; TEMP 36.4–36.7; O2SAT 94–99
[2023-10-01 01:07] LABS: Bilirubin Urine Negative (Negative); Blood Urine 1+ (Negative); Glucose Urine UA 3+ (Normal); Ketones Urine Negative (Negative); Leukocyte Esterase Urine 1+ (Negative); Nitrate Urine Negative (Negative); Protein Urine 1+ (Negative); Specific Gravity, Urine 1.015 (1.005-1.030); Urine Appearance Clear (CLEAR); Urine Color Yellow (Yellow); pH Urine 5.5 (5-7)
[2023-10-01 01:13] LABS: Bacteria Urine None Seen /hpf; Hyaline Casts Urine 8.67 /lpf; Squamous Epithelial Cell Urine 0-5 /hpf (0-5); WBC Urine 21-50 /hpf (0-5)
[2023-10-01 01:24] LABS: Creatinine Urine, Random 50 mg/dL (39-259); Microalbumin Random Urine 11 ug/dL (0-20)
[2023-10-01 01:25] LABS: Potassium, Radom Urine 20 mmol/L; Urine Creatinine 49 mg/dL (39-259); Urine Protein Random 20 mg/dL
[2023-10-01 01:35] LABS: Microalbum Creatinine Ratio Ur 220 mg/dL (0-20)
[2023-10-01 01:36] LABS: Urine Random Chloride 10 mmol/L; Urine Random Sodium 13 mmol/L
[2023-10-01 01:45] LABS: Add Urine Culture? Yes
[2023-10-01] MEDS: ciprofloxacin 400 MG/200 ML PREMIX 200 MG IV ×2 (03:16→15:38)
[2023-10-01 04:27] LABS: Basophils % 0.4 %; Eosinophils % 0.5 %; Lymphocytes # 1.5 10^3/uL (0.8-4.8); Lymphocytes % 17.8 %; Mean Corpuscular HGB Conc 30.8 g/dL (30-55); Mean Corpuscular Hemoglobin 25.5 pg (27-33); Mean Corpuscular Volume 82.8 fl (82-101); Mean Platelet Volume 10.2 fL (7.4-10.4); Monocytes % 12.3 %; Neutrophils # 5.78 10^3/uL (1.8-7.7); Neutrophils % 68.3 %; Nucleated Red Blood Cells % 0 %; Platelet Count 300 10^3/cmm (157-399); Red Blood Count 4.59 10^6/uL (3.85-5.65); Red Cell Distribution Width 19.5 % (12.1-15.1); White Blood Count 8.45 10^3/uL (3.29-11.43)
[2023-10-01 04:46] LABS: Ferritin 198 ng/mL (30-400); Iron 26 ug/dL (59-158); Magnesium 2.5 mg/dL (1.7-2.3); Percent Saturation 9.5 % (20-50); Phosphorus 4.8 mg/dL (2.5-4.5); Total Iron Binding Capacity 273 mcg/dl; Unsaturated Iron Binding 247 ug/dL (112-347)
[2023-10-01 04:51] LABS: Alanine Aminotransferase 125 U/L (0-41); Alkaline Phosphatase 261 U/L (40-130); Aspartate Amino Transferase 114 U/L (0-40); Carbon Dioxide 26 mmol/L (22-29); Chloride 91 mmol/L (98-107); Creatinine Clr Calc Pharmacy 33.6339; Globulin 3.6 g/dL (1.3-4.6); Glomerular Filtration Rate 21.2 mL/min (90-130); Glucose 188 mg/dL (65-115); Osmolality Calculated 303 mOsm/kg (285-295); Sodium 131 mmol/L (136-145); Total Bilirubin 1.4 mg/dL (0.15-1.2); Total Protein 6.6 g/dL (6.6-8.7)
[2023-10-01 04:52] LABS: Parathyroid Hormone 125.8 pg/mL (15-65)
[2023-10-01 04:54] LABS: Cortisol Random 18.12 ug/dL (2.47-19.5); Thyroid Stimulating Hormone 1.49 uIU/mL (0.27-4.20)
[2023-10-01 05:07] LABS: Blood Urea Nitrogen 85 mg/dL (8-23)
[2023-10-01 07:24] LABS: Glucose Point of Care 189 mg/dL (70-110)
[2023-10-01] MEDS: insulin lispro 100 unit/1 mL SUBCUT ×4 (07:49→22:06)
[2023-10-01] MEDS: metroNIDAZOLE IV 500 MG/100 ML PREMIX 100 MG IV ×3 (07:50→22:56)
--- NOTE | 2023-10-01 08:15 | P.PN_ITS ---
Subjective 2 Subjective: feels better. no n/v/f/c/hernández/d/leg pains Medications: Reviewed: Yes Medication Review Details: Current Medications Acetaminophen (Acetaminophen 325 Mg Tablet) 650 mg PO Q6H PRN PRN Reason: Mild/Mod Pain Or Temp >/= 101 Albuterol/Ipratropium (Ipratropium-Albuterol 3 Ml Neb) 3 ml INHALATION Q6H.RESP PRN PRN Reason: SHORTNESS OF BREATH Allopurinol (Allopurinol 100 Mg Tablet) 100 mg PO DAILY [facility] Last Admin: 09/30/23 08:23 Dose: 100 mg Amiodarone HCl (Amiodarone 200 Mg Tablet) 200 mg PO DAILY [facility] Last Admin: 09/30/23 08:23 Dose: 200 mg Aspirin (Aspirin 81 Mg Ec Tablet) 81 mg PO DAILY [facility] Last Admin: 09/30/23 08:24 Dose: 81 mg Atorvastatin Calcium (Atorvastatin 40 Mg Tablet) 40 mg DOBHOFF QPM [facility] Last Admin: 09/30/23 17:45 Dose: 40 mg Citalopram Hydrobromide (Citalopram 20 Mg Tablet) 20 mg PO DAILY [facility] Last Admin: 09/30/23 08:24 Dose: 20 mg Glucagon (Glucagon 1 Mg/Ml Kit 1 Ml) 1 mg IM ONCE PRN; Protocol PRN Reason: Adult Acute Hypoglycemia Nursing Prot. Dextrose (D5w) 500 mls @ 0 mls/hr IV ONCE PRN; Protocol PRN Reason: Adult Acute Hypoglycemia Prot Dextrose (D10w) 125 mls @ 750 mls/hr IV PRN PRN; Protocol PRN Reason: Adult Acute Hypoglycemia Nursing Protocol Dextrose (D10w) 250 mls @ 1,000 mls/hr IV PRN PRN; Protocol PRN Reason: Adult Acute Hypoglycemia Nursing Protocol Ciprofloxacin/Dextrose (Cipro) 400 mg in 200 mls @ 200 mls/hr IV Q12H DEMARCO; Protocol Last Infusion: 10/01/23 04:18 Dose: Infused Metronidazole (Flagyl Iv) 500 mg in 100 mls @ 100 mls/hr IV Q8H DEMARCO; Protocol Last Admin: 10/01/23 07:50 Dose: 100 mls/hr Insulin Glargine (Insulin Glargine 100 Units/1 Ml) 10 unit SUBCUT Q12H DEMARCO Insulin Human Lispro (Insulin Lispro 100 Unit/1 Ml) 0 unit SUBCUT TIDWM DEMARCO; Protocol Last Admin: 10/01/23 07:49 Dose: 9 unit Midodrine (Midodrine 5 Mg Tablet) 5 mg PO TID [facility] Last Admin: 09/30/23 20:56 Dose: 5 mg Morphine Sulfate (Morphine 4 Mg/Ml Sdv 1 Ml) 2 mg IVP Q4H PRN PRN Reason: SEVERE PAIN Last Admin: 09/29/23 22:17 Dose: 2 mg Ondansetron HCl (Ondansetron 2 Mg/Ml Sdv 2 Ml) 4 mg IVP Q8H PRN PRN Reason: vomiting, or N/V if npo Last Admin: 09/30/23 06:22 Dose: 4 mg Pantoprazole Sodium (Pantoprazole 40 Mg Sdv) 40 mg IVP Q24H [facility] Last Admin: 09/30/23 19:15 Dose: 40 mg Polyethylene Glycol (Polyethylene Glycol 3350 Pkt 17 Gm) 17 gm PO BID [facility] Last Admin: 09/30/23 17:44 Dose: Not Given Rivaroxaban (Rivaroxaban 10 Mg Tablet) 20 mg PO DAILY [facility] Last Admin: 09/30/23 08:23 Dose: 20 mg Terazosin HCl (Terazosin 1 Mg Capsule) 1 mg PO BEDTIME [facility] Last Admin: 09/30/23 20:56 Dose: 1 mg Vitals/I&O/Wt Last Vital Signs Temp 97.9 F 10/01/23 07:26 Pulse 80 10/01/23 08:14 Resp 18 10/01/23 08:14 BP 93/61 10/01/23 07:26 Pulse Ox 96 10/01/23 08:14 O2 Del Method Nasal Cannula 10/01/23 08:14 O2 Flow Rate 3 10/01/23 08:14 09/30/23 10/01/23 10/01/23 22:59 06:59 14:59 Intake Total 500 / 980 300 / 1280 Output Total 1650 / 1650 600 / 2250 Balance -1150 / -670 -300 / -970 Weight last 48 hrs Weight 124.284 kg Weight 122.924 kg Physical Exam 2 Narrative: Vital signs noted. Blood pressure on low side but acceptable for severe heart failure. Comfortable sitting up in bed no apparent distress. HEENT normocephalic atraumatic neck is supple no JVP. Lungs good air movement Heart irregular positive S1-S2. Abdomen is soft positive bowel sounds extremities minimal ankle edema. Neuro awake alert oriented x 3. Urinary Catheter Management: Mathew: Cath Placed During This Visit: yes Reason for Continuing Indwelling Catheter: Acute Urinary Retention or Obstruction Urinary Catheter Date of Insertion: 09/29/23 Urinary Catheter Time of Insertion: 02:32 Data 10/01/23 03:22 10/01/23 03:22 A&P Assessment and plan (1) DAYANNA (acute kidney injury): The patient is a 62-year-old gentleman with heart failure reduced EF of 10 to 15% status post ICD, diabetes, DVT, obesity question of sleep apnea with acute on chronic renal failure 1. CKD stage IIIb baseline creatinine 1.5 to 2.5 mg/dL abdominal ultrasound reviewed showing cirrhosis and hepatic steatosis. Mild ascites right kidney 10.1 cm poorly visualized does not comment on left kidney. However recent abdominal CT scan was normal. The patient has good urine output this is unlikely to be obstructive uropathy. The patient's urinalysis was reviewed. His protein goes from negative to 2+ at this time we will check a urine albumin creatinine and urine protein creatinine. The patient has glucose in his urine likely from his Jardiance. Most likely the patient has cardiorenal syndrome with some degree of diabetic nephrosclerosis. 2. Acute kidney injury likely from cardiorenal syndrome from poorly controlled heart failure reduced EF and diuresis. cr is stable At this time the data would likely suggest to continue to monitor goal-directed medical therapy and will discuss with cardiology if we should restart an ARB. He appears euvolemic at this time I am okay with temporarily holding his diuretics. 3. Hyponatremia improved off of diuretics and w/ fluid restriction if serum na drops again, then consider adding tolvaptan as needed. -low ur na noted- consistent w/ prerenal azotemia. serum na improved overnight -normal TSH - random cortisol 18. 3. acute on chronic HFrEF- appears euvolemic Medications reviewed. Case discussed in detail with the patient. Patient was seen using audiovisual equipment with the aid of a nurse. The patient consented to telehealth visit. Plan see above Attestations 2 Medical Necessity Statement*: hyponatremia Time Spent in Patient Care: 16 - 35 minutes (>than 50% of time sp ent in counselling and/or direct pt care on unit) . Coding Level of Care Code Acute Code for [facility] Diagnoses DAYANNA (acute kidney injury) N17.9
[2023-10-01] MEDS: allopurinol 100 mg Tablet PO (08:49)
[2023-10-01] MEDS: midodrine 5 mg TABLET PO ×3 (08:49→21:07)
[2023-10-01] MEDS: aspirin 81 mg EC Tablet PO (08:49)
[2023-10-01] MEDS: amiodarone 200 mg Tablet PO (08:49)
[2023-10-01] MEDS: rivaroxaban 10 mg Tablet 20 MG PO (08:49)
[2023-10-01] MEDS: citalopram 20 mg Tablet PO (08:49)
[2023-10-01 12:45] LABS: Glucose Point of Care 299 mg/dL (70-110)
--- NOTE | 2023-10-01 16:12 | PM.PN ---
Subjective Subjective: Patient was seen this morning, is at bedside denies any fevers, no chills, no cough, does report some abdominal pain, he is ambulating to the bathroom does feel short of breath no lightheadedness, Vitals/I&O/Wt Last Vital Signs Temp 97.6 F 10/01/23 12:00 Pulse 75 10/01/23 14:00 Resp 22 H 10/01/23 12:00 BP 100/61 10/01/23 12:00 Pulse Ox 99 10/01/23 12:00 O2 Del Method Nasal Cannula 10/01/23 12:00 O2 Flow Rate 3 10/01/23 08:14 10/01/23 10/01/23 10/01/23 06:59 14:59 22:59 Intake Total 300 / 1280 460 / 460 Output Total 600 / 2250 Balance -300 / -970 460 / 460 Weight last 48 hrs Weight 124.284 kg Weight 122.924 kg Physical Exam Const: COMMON NORMALS: no acute distress and patient oriented x3 Resp: COMMON NORMALS: normal respiratory effort, No retractions, No use of accessory muscles and clear to auscultation bilaterally AUSCULTATION: clear to auscultation bilaterally Cardio: COMMON NORMALS: regular rate, regular rhythm, S1 normal heart sound present and S2 normal heart sound present RATE: regular rate RHYTHM: regular rhythm HEART SOUNDS: S1 normal heart sound present and S2 normal heart sound present GI: COMMON NORMALS: Normal to inspection, nondistended, normoactive bowel sounds present and non-tender Extremity: NARRATIVE EXTREMITY EXAM: 1+ edema Neuro: COMMON NORMALS: patient oriented x3 Psych: COMMON NORMALS: mental status grossly normal Skin: OTHER: Bluish hue to all bilateral feet, DP PT pulses diminished, 1+ edema Urinary Catheter Management: Mathew: Cath Placed During This Visit: yes Reason for Continuing Indwelling Catheter: Acute Urinary Retention or Obstruction Urinary Catheter Date of Insertion: 09/29/23 Urinary Catheter Time of Insertion: 02:32 Data 10/01/23 03:22 10/01/23 03:22 A&P Assessment and plan (1) Acute on chronic systolic heart failure: (2) CHF exacerbation: (3) DAYANNA (acute kidney injury): (4) Cardiomyopathy: Qualifiers: Cardiomyopathy type: unspecified Qualified Code(s): I42.9 - Cardiomyopathy, unspecified (5) Low output heart failure: (6) Secondary nonischemic congestive cardiomyopathy: (7) DVT (deep venous thrombosis): (8) Diabetes: Qualifiers: Diabetes mellitus complication detail: with other circulatory complications Diabetes mellitus complication status: with circulatory complication Diabetes mellitus intermediate designer insulin use: with intermediate designer use Diabetes mellitus type: type 2 Qualified Code(s): E11.59 - Type 2 diabetes mellitus with other circulatory complications; Z79.4 - shelter (current) use of insulin (9) Transaminitis: (10) Cholecystitis: Plan Acute CHF exacerbation History of nonischemic cardiomyopathy ? EF 10 to 50% ? During his last hospitalization patient had evidence of cardiogenic shock, elevated lactic acid, transaminitis, decreased tissue perfusion, requiring dobutamine drip, with diuresis ? During his last hospitalization Entresto, Coreg, spironolactone were discontinued ? Plan ? Trend troponins 6-hour 80 -Lactic acid 1.8 ? Bumex 1 mg IV push every 12 hours currently on hold as creatinine is up to 3 -DAYANNA, creatinine up to 3, potentially cardiorenal and or diuresis, hold off on further diuresis, consult nephrology ? Continue home midodrine Monitor hemodynamics closely ? History of DVT continue Xarelto ? Continue amiodarone ? Type 2 diabetes mellitus, low-dose sliding scale, Lantus 10 units twice daily ? Fatigue, malaise, monitor, PT OT Right upper quadrant pain 1. Technically very limited and difficult evaluation of the RIGHT upper quadrant due to patient's body habitus. 2. No cholelithiasis. 3. Small amount of ascites. 4. Mild enlargement of the liver with hepatic steatosis and possible cirrhosis. ? Elevated LFTs, T. bili, alk phos, elevated CRP, Pro-Pedrito ? Complaints of right upper quadrant pain to palpation ? Will treat for acute cholecystitis, ciprofloxacin, Flagyl -Cardiac cirrhosis -Bilateral lower extremities, bluish hue, likely secondary to low output cardiac failure ? Neurochecks, aspiration precautions, night stroke scale -Does have sacral DTI's, will have to monitor closely ? Full code Xarelto for DVT prophylaxis Attestations Medical Necessity Statement*: Patient requires hospitalization for acute CHF exacerbation, now with DAYANNA Diagnoses Acute on chronic systolic heart failure I50.23 CHF exacerbation I50.9 DAYANNA (acute kidney injury) N17.9 Cardiomyopathy I42.9 Cardiomyopathy type: unspecified Low output heart failure I50.9 Secondary nonischemic congestive cardiomyopathy I42.0 DVT (deep venous thrombosis) I82.409 Type 2 diabetes mellitus with other circulatory complication, with long-term current use of insulin E11.59; Z79.4 Diabetes mellitus complication detail: with other circulatory complications Diabetes mellitus complication status: with circulatory complication Diabetes mellitus intermediate designer insulin use: with detention use Diabetes mellitus type: type 2 Transaminitis R74.01 Cholecystitis K81.9
[2023-10-01 16:59] LABS: Glucose Point of Care 356 mg/dL (70-110)
[2023-10-01] MEDS: atorvastatin 40 mg Tablet DOBHOFF (18:02)
[2023-10-01] MEDS: insulin glargine 100 units/1 mL 10 UNIT SUBCUT (18:02)
[2023-10-01 20:58] LABS: Glucose Point of Care 361 mg/dL (70-110)
[2023-10-01] MEDS: pantoprazole 40 mg SDV IVP (21:07)
--- NOTE | 2023-10-01 21:59 | PC.NURSE ---
Patient BG was 361 with no bedtime insulin orders. Dr Andrew notified and orders to change humalog from with meals to with meals and bedtime were given.
[2023-10-02] VITALS (12 sets, daily range): BP systolic 104–115; BP diastolic 70–87; PULSE 73–85; RESP 11–70; TEMP 36.4–36.7; O2SAT 94–98; BMI 38.0
[2023-10-02 03:00] LABS: Amylase 40 U/L (21-101)
[2023-10-02 04:19] LABS: Basophils % 0.2 %; Eosinophils # 0.1 10^3/uL (0.0-0.8); Eosinophils % 0.6 %; Hematocrit 39.3 % (37-53); Lymphocytes # 1.3 10^3/uL (0.8-4.8); Lymphocytes % 15.2 %; Mean Corpuscular HGB Conc 30.3 g/dL (30-55); Mean Corpuscular Hemoglobin 25.5 pg (27-33); Mean Corpuscular Volume 84.3 fl (82-101); Mean Platelet Volume 9.8 fL (7.4-10.4); Monocytes # 1.1 10^3/uL (0.2-0.9); Monocytes % 12.9 %; Neutrophils # 6.22 10^3/uL (1.8-7.7); Neutrophils % 70.5 %; Nucleated Red Blood Cells % 0.2 %; Platelet Count 283 10^3/cmm (157-399); Red Blood Count 4.66 10^6/uL (3.85-5.65); Red Cell Distribution Width 19.6 % (12.1-15.1); White Blood Count 8.82 10^3/uL (3.29-11.43)
[2023-10-02 04:43] LABS: Alanine Aminotransferase 114 U/L (0-41); Alkaline Phosphatase 268 U/L (40-130); Anion Gap 14.6 (5-19); Aspartate Amino Transferase 92 U/L (0-40); Blood Urea Nitrogen 71 mg/dL (8-23); Calcium 8.8 mg/dL (8.5-10.5); Carbon Dioxide 27 mmol/L (22-29); Chloride 93 mmol/L (98-107); Creatinine Clr Calc Pharmacy 40.5934; Globulin 3.8 g/dL (1.3-4.6); Glomerular Filtration Rate 26.2 mL/min (90-130); Glucose 162 mg/dL (65-115); Magnesium 2.6 mg/dL (1.7-2.3); Osmolality Calculated 296 mOsm/kg (285-295); Phosphorus 3.8 mg/dL (2.5-4.5); Potassium 3.6 mmol/L (3.5-5.1); Sodium 131 mmol/L (136-145); Total Bilirubin 1.4 mg/dL (0.15-1.2); Total Protein 6.8 g/dL (6.6-8.7)
[2023-10-02] MEDS: ciprofloxacin 400 MG/200 ML PREMIX 200 MG IV ×2 (04:44→16:30)
[2023-10-02] MEDS: insulin glargine 100 units/1 mL 10 UNIT SUBCUT (06:10)
[2023-10-02 07:04] LABS: Glucose Point of Care 215 mg/dL (70-110)
--- NOTE | 2023-10-02 07:44 | PM.PN ---
Subjective Subjective: The patient was seen and examined. He is feeling better. He is eating well he has no nausea or vomiting no diarrhea he has dyspnea on exertion. Medications: Reviewed: Yes Medication Review Details: Current Medications Acetaminophen (Acetaminophen 325 Mg Tablet) 650 mg PO Q6H PRN PRN Reason: Mild/Mod Pain Or Temp >/= 101 Albuterol/Ipratropium (Ipratropium-Albuterol 3 Ml Neb) 3 ml INHALATION Q6H.RESP PRN PRN Reason: SHORTNESS OF BREATH Allopurinol (Allopurinol 100 Mg Tablet) 100 mg PO DAILY [facility] Last Admin: 10/01/23 08:49 Dose: 100 mg Amiodarone HCl (Amiodarone 200 Mg Tablet) 200 mg PO DAILY [facility] Last Admin: 10/01/23 08:49 Dose: 200 mg Aspirin (Aspirin 81 Mg Ec Tablet) 81 mg PO DAILY [facility] Last Admin: 10/01/23 08:49 Dose: 81 mg Atorvastatin Calcium (Atorvastatin 40 Mg Tablet) 40 mg DOBHOFF QPM [facility] Last Admin: 10/01/23 18:02 Dose: 40 mg Citalopram Hydrobromide (Citalopram 20 Mg Tablet) 20 mg PO DAILY [facility] Last Admin: 10/01/23 08:49 Dose: 20 mg Glucagon (Glucagon 1 Mg/Ml Kit 1 Ml) 1 mg IM ONCE PRN; Protocol PRN Reason: Adult Acute Hypoglycemia Nursing Prot. Dextrose (D5w) 500 mls @ 0 mls/hr IV ONCE PRN; Protocol PRN Reason: Adult Acute Hypoglycemia Prot Dextrose (D10w) 125 mls @ 750 mls/hr IV PRN PRN; Protocol PRN Reason: Adult Acute Hypoglycemia Nursing Protocol Dextrose (D10w) 250 mls @ 1,000 mls/hr IV PRN PRN; Protocol PRN Reason: Adult Acute Hypoglycemia Nursing Protocol Ciprofloxacin/Dextrose (Cipro) 400 mg in 200 mls @ 200 mls/hr IV Q12H [facility]; Protocol Last Infusion: 10/02/23 06:09 Dose: Infused Metronidazole (Flagyl Iv) 500 mg in 100 mls @ 100 mls/hr IV Q8H [facility]; Protocol Last Infusion: 10/02/23 00:15 Dose: Infused Insulin Glargine (Insulin Glargine 100 Units/1 Ml) 10 unit SUBCUT QAM [facility] Last Admin: 10/02/23 06:10 Dose: 10 unit Insulin Human Lispro (Insulin Lispro 100 Unit/1 Ml) 0 unit SUBCUT WM&BEDTIME [facility]; Protocol Last Admin: 10/01/23 22:06 Dose: 14 unit Midodrine (Midodrine 5 Mg Tablet) 5 mg PO TID [facility] Last Admin: 10/01/23 21:07 Dose: 5 mg Morphine Sulfate (Morphine 4 Mg/Ml Sdv 1 Ml) 2 mg IVP Q4H PRN PRN Reason: SEVERE PAIN Last Admin: 09/29/23 22:17 Dose: 2 mg Ondansetron HCl (Ondansetron 2 Mg/Ml Sdv 2 Ml) 4 mg IVP Q8H PRN PRN Reason: vomiting, or N/V if npo Last Admin: 09/30/23 06:22 Dose: 4 mg Pantoprazole Sodium (Pantoprazole 40 Mg Sdv) 40 mg IVP Q24H [facility] Last Admin: 10/01/23 21:07 Dose: 40 mg Polyethylene Glycol (Polyethylene Glycol 3350 Pkt 17 Gm) 17 gm PO BID [facility] Last Admin: 10/01/23 18:19 Dose: Not Given Rivaroxaban (Rivaroxaban 10 Mg Tablet) 20 mg PO DAILY [facility] Last Admin: 10/01/23 08:49 Dose: 20 mg Terazosin HCl (Terazosin 1 Mg Capsule) 1 mg PO BEDTIME [facility] Last Admin: 10/01/23 21:07 Dose: 1 mg Vitals/I&O/Wt Last Vital Signs Temp 97.6 F 10/02/23 00:35 Pulse 84 10/02/23 07:40 Resp 16 10/02/23 07:40 BP 115/83 10/02/23 03:07 Pulse Ox 97 10/02/23 07:40 O2 Del Method Nasal Cannula 10/02/23 07:40 O2 Flow Rate 3 10/02/23 07:40 10/01/23 10/02/23 10/02/23 22:59 06:59 14:59 Intake Total 780 / 1240 540 / 1780 Output Total 1999 850 / 2850 Balance -1220 / -760 -310 / -1070 Weight last 48 hrs Weight 123.831 kg Weight 124.284 kg Physical Exam Narrative: Vital signs noted. Blood pressure improved. Comfortable sitting up in bed no apparent distress. HEENT normocephalic atraumatic neck is supple no JVP. Lungs -left basal crackles otherwise clear. Heart irregular positive S1-S2. Abdomen is soft positive bowel sounds extremities minimal ankle edema. Neuro awake alert oriented x 3. Urinary Catheter Management: Mathew: Cath Placed During This Visit: yes Reason for Continuing Indwelling Catheter: Other Urinary Catheter Date of Insertion: 09/29/23 Urinary Catheter Time of Insertion: 02:32 Data 10/02/23 03:45 10/02/23 03:45 A&P Assessment and plan (1) DAYANNA (acute kidney injury): The patient is a 62-year-old gentleman with heart failure reduced EF of 10 to 15% status post ICD, diabetes, DVT, obesity question of sleep apnea with acute on chronic renal failure 1. CKD stage IIIb baseline creatinine 1.5 to 2.5 mg/dL abdominal ultrasound reviewed showing cirrhosis and hepatic steatosis. Mild ascites right kidney 10.1 cm poorly visualized does not comment on left kidney. However recent abdominal CT scan was normal. The patient has good urine output this is unlikely to be obstructive uropathy. The patient's urinalysis was reviewed. His protein goes from negative to 2+ at this time we will check a urine albumin creatinine and urine protein creatinine. The patient has glucose in his urine likely from his Jardiance. Most likely the patient has cardiorenal syndrome with some degree of diabetic nephrosclerosis. 2. Acute kidney injury likely from cardiorenal syndrome from poorly controlled heart failure reduced EF and diuresis. cr has improved to 2.5 mg/dL At this time the data would likely suggest to continue to monitor goal-directed medical therapy and will discuss with cardiology if we should restart an ARB. -Will likely need to start diuretics soon. 3. Hyponatremia improved off of diuretics and w/ fluid restriction if serum na drops again, then consider adding tolvaptan as needed. As an outpatient he may need close monitoring of his chemistries and using tolvaptan to keep the sodium above 130. -low ur na noted- consistent w/ prerenal azotemia. serum na improved overnight -normal TSH - random cortisol 18. 3. acute on chronic HFrEF-his left basal crackles and dyspnea on exertion otherwise appears euvolemic. May need to start diuretics soon Replace potassium. Medications reviewed. Case discussed in detail with the patient. Patient was seen using audiovisual equipment with the aid of a nurse. The patient consented to telehealth visit. Plan see above Attestations Medical Necessity Statement*: As per medicine. Time Spent in Patient Care: 16 - 35 minutes (>than 50% of time spent in counselling and/or direct pt care on unit). Coding Level of Care Code Acute Code for Chg Fwd Diagnoses DAYANNA (acute kidney injury) N17.9
[2023-10-02] MEDS: polyethylene glycol 3350 Pkt 17 gm PO (08:32)
[2023-10-02] MEDS: midodrine 5 mg TABLET PO ×3 (08:33→21:35)
[2023-10-02] MEDS: allopurinol 100 mg Tablet PO (08:33)
[2023-10-02] MEDS: amiodarone 200 mg Tablet PO (08:33)
[2023-10-02] MEDS: citalopram 20 mg Tablet PO (08:33)
[2023-10-02] MEDS: aspirin 81 mg EC Tablet PO (08:34)
[2023-10-02] MEDS: metroNIDAZOLE IV 500 MG/100 ML PREMIX 100 MG IV ×3 (08:34→23:28)
[2023-10-02] MEDS: potassium chloride ER 20 mEq Tablet PO (08:34)
[2023-10-02] MEDS: rivaroxaban 10 mg Tablet 20 MG PO (08:34)
[2023-10-02] MEDS: insulin lispro 100 unit/1 mL SUBCUT ×4 (08:34→21:35)
[2023-10-02 10:50] LABS: Glucose Point of Care 293 mg/dL (70-110)
--- NOTE | 2023-10-02 14:48 | PM.PN ---
Subjective Subjective: Patient was seen this morning, he does report shortness of breath with exertion, but clinically improving no fevers, no chills, still having abdominal pain but overall improving, passing gas from below, has not had a bowel movement Vitals/I&O/Wt Last Vital Signs Temp 98.1 F 10/02/23 08:47 Pulse 85 10/02/23 13:15 Resp 20 H 10/02/23 13:15 BP 115/70 10/02/23 13:15 Pulse Ox 95 10/02/23 13:15 O2 Del Method Nasal Cannula 10/02/23 13:15 O2 Flow Rate 2 10/02/23 13:15 10/01/23 10/02/23 10/02/23 22:59 06:59 14:59 Intake Total 780 / 1240 540 / 1780 636 / 636 Output Total 1999 / 1999 850 / 2850 800 / 800 Balance -1220 / -760 -310 / -1070 -164 / -164 Weight last 48 hrs Weight 123.831 kg Weight 124.284 kg Physical Exam Const: COMMON NORMALS: no acute distress and patient oriented x3 Resp: COMMON NORMALS: normal respiratory effort, No retractions, No use of accessory muscles and clear to auscultation bilaterally AUSCULTATION: clear to auscultation bilaterally Cardio: COMMON NORMALS: regular rate, regular rhythm, S1 normal heart sound present and S2 normal heart sound present RATE: regular rate RHYTHM: regular rhythm HEART SOUNDS: S1 normal heart sound present and S2 normal heart sound present GI: COMMON NORMALS: Normal to inspection, nondistended, normoactive bowel sounds present and non-tender Extremity: COMMON NORMALS: no pedal edema Neuro: COMMON NORMALS: patient oriented x3 Psych: COMMON NORMALS: mental status grossly normal Urinary Catheter Management: Mathew: Cath Placed During This Visit: yes, but has since been removed by the nurse Reason for Continuing Indwelling Catheter: Decision to DC Catheter Urinary Catheter Date of Insertion: 09/29/23 Urinary Catheter Time of Insertion: 02:32 Date Urinary Catheter Removed: 10/02/23 Time Urinary Catheter Discontinued: 12:42 Data 10/02/23 03:45 10/02/23 03:45 Micro: Microbiology 10/01/23 00:50 Urine Culture - Preliminary Urine,Clean Catch A&P Assessment and plan (1) Acute on chronic systolic heart failure: (2) CHF exacerbation: (3) DAYANNA (acute kidney injury): (4) Cardiomyopathy: Qualifiers: Cardiomyopathy type: unspecified Qualified Code(s): I42.9 - Cardiomyopathy, unspecified (5) Low output heart failure: (6) Secondary nonischemic congestive cardiomyopathy: (7) DVT (deep venous thrombosis): (8) Diabetes: Qualifiers: Diabetes mellitus complication detail: with other circulatory complications Diabetes mellitus complication status: with circulatory complication 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 EF 10 to 50% ? During his last hospitalization patient had evidence of cardiogenic shock, elevated lactic acid, transaminitis, decreased tissue perfusion, requiring dobutamine drip, with diuresis ? During his last hospitalization Entresto, Coreg, spironolactone were discontinued ? Plan ? Trend troponins 6-hour 80 -Lactic acid 1.8 ? Bumex 1 mg IV push every 12 hours currently on hold as creatinine is up to 3 -DAYANNA, creatinine up to 3, potentially cardiorenal and or diuresis, hold off on further diuresis, consult nephrology ? Continue home midodrine Monitor hemodynamics closely ? History of DVT continue Xarelto ? Continue amiodarone ? Type 2 diabetes mellitus, low-dose sliding scale, Lantus 10 units twice daily ? Fatigue, malaise, monitor, PT OT Right upper quadrant pain 1. Technically very limited and difficult evaluation of the RIGHT upper quadrant due to patient's body habitus. 2. No cholelithiasis. 3. Small amount of ascites. 4. Mild enlargement of the liver with hepatic steatosis and possible cirrhosis. ? Elevated LFTs, T. bili, alk phos, elevated CRP, Pro-Pedrito ? Complaints of right upper quadrant pain to palpation ? Will treat for acute cholecystitis, ciprofloxacin, Flagyl -Cardiac cirrhosis -Bilateral lower extremities, bluish hue, likely secondary to low output cardiac failure ? Neurochecks, aspiration precautions, night stroke scale -Does have sacral DTI's, will have to monitor closely ? Full code Xarelto for DVT prophylaxis Attestations Medical Necessity Statement*: Patient requires hospitalization for CHF exacerbation, with DAYANNA holding diuresis, concerns for cholecystitis, on IV antibiotics Diagnoses Acute on chronic systolic heart failure I50.23 CHF exacerbation I50.9 DAYANNA (acute kidney injury) N17.9 Cardiomyopathy I42.9 Cardiomyopathy type: unspecified Low output heart failure I50.9 Secondary nonischemic congestive cardiomyopathy I42.0 DVT (deep venous thrombosis) I82.409 Type 2 diabetes mellitus with other circulatory complication, with long-term current use of insulin E11.59; Z79.4 Diabetes mellitus complication detail: with other circulatory complications Diabetes mellitus complication status: with circulatory complication 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
[2023-10-02 16:59] LABS: Glucose Point of Care 330 mg/dL (70-110)
[2023-10-02] MEDS: atorvastatin 40 mg Tablet DOBHOFF (18:14)
[2023-10-02 20:06] LABS: Glucose Point of Care 350 mg/dL (70-110)
[2023-10-02] MEDS: pantoprazole 40 mg SDV IVP (21:35)
[2023-10-03] VITALS (7 sets, daily range): BP systolic 104–133; BP diastolic 76–96; PULSE 0–87; RESP 16–22; TEMP 36.3–36.7; O2SAT 92–98
[2023-10-03 04:10] LABS: Basophils % 0.5 %; Eosinophils # 0.1 10^3/uL (0.0-0.8); Eosinophils % 0.8 %; Hematocrit 38.1 % (37-53); Lymphocytes # 1.5 10^3/uL (0.8-4.8); Lymphocytes % 17.6 %; Mean Corpuscular HGB Conc 30.2 g/dL (30-55); Mean Corpuscular Hemoglobin 25.7 pg (27-33); Mean Platelet Volume 9.9 fL (7.4-10.4); Monocytes # 1.1 10^3/uL (0.2-0.9); Monocytes % 12.1 %; Neutrophils # 5.96 10^3/uL (1.8-7.7); Neutrophils % 68.3 %; Nucleated Red Blood Cells % 0.3 %; Platelet Count 264 10^3/cmm (157-399); Red Blood Count 4.48 10^6/uL (3.85-5.65); Red Cell Distribution Width 19.8 % (12.1-15.1); White Blood Count 8.73 10^3/uL (3.29-11.43)
[2023-10-03] MEDS: ciprofloxacin 400 MG/200 ML PREMIX 200 MG IV (04:19)
[2023-10-03 04:28] LABS: Alanine Aminotransferase 95 U/L (0-41); Alkaline Phosphatase 290 U/L (40-130); Aspartate Amino Transferase 68 U/L (0-40); Blood Urea Nitrogen 58 mg/dL (8-23); Calcium 8.6 mg/dL (8.5-10.5); Carbon Dioxide 26 mmol/L (22-29); Chloride 92 mmol/L (98-107); Creatinine Clr Calc Pharmacy 46.0408; Globulin 3.6 g/dL (1.3-4.6); Glomerular Filtration Rate 30.4 mL/min (90-130); Glucose 232 mg/dL (65-115); Magnesium 2.6 mg/dL (1.7-2.3); Osmolality Calculated 292 mOsm/kg (285-295); Phosphorus 3.1 mg/dL (2.5-4.5); Sodium 129 mmol/L (136-145); Total Bilirubin 1.3 mg/dL (0.15-1.2); Total Protein 6.6 g/dL (6.6-8.7)
[2023-10-03 06:28] LABS: Glucose Point of Care 210 mg/dL (70-110)
[2023-10-03] MEDS: insulin glargine 100 units/1 mL 10 UNIT SUBCUT (06:48)
[2023-10-03] MEDS: midodrine 5 mg TABLET PO ×2 (07:55→15:02)
[2023-10-03] MEDS: insulin lispro 100 unit/1 mL SUBCUT ×2 (07:55→12:44)
[2023-10-03] MEDS: aspirin 81 mg EC Tablet PO (07:55)
[2023-10-03] MEDS: allopurinol 100 mg Tablet PO (07:56)
[2023-10-03] MEDS: citalopram 20 mg Tablet PO (07:56)
[2023-10-03] MEDS: rivaroxaban 10 mg Tablet 20 MG PO (07:56)
[2023-10-03] MEDS: amiodarone 200 mg Tablet PO (07:56)
[2023-10-03] MEDS: metroNIDAZOLE IV 500 MG/100 ML PREMIX 100 MG IV ×2 (08:05→15:03)
--- NOTE | 2023-10-03 08:27 | P.PN_ITS ---
Subjective 2 Subjective: The patient was seen and examined. The patient is feeling better. The patient has no nausea vomiting or diarrhea. He has mild ankle edema. He is urinating well. He states he can sleep laying flat. Medications: Reviewed: Yes Medication Review Details: Current Medications Acetaminophen (Acetaminophen 325 Mg Tablet) 650 mg PO Q6H PRN PRN Reason: Mild/Mod Pain Or Temp >/= 101 Albuterol/Ipratropium (Ipratropium-Albuterol 3 Ml Neb) 3 ml INHALATION Q6H.RESP PRN PRN Reason: SHORTNESS OF BREATH Allopurinol (Allopurinol 100 Mg Tablet) 100 mg PO DAILY [facility] Last Admin: 10/03/23 07:56 Dose: 100 mg Amiodarone HCl (Amiodarone 200 Mg Tablet) 200 mg PO DAILY [facility] Last Admin: 10/03/23 07:56 Dose: 200 mg Aspirin (Aspirin 81 Mg Ec Tablet) 81 mg PO DAILY [facility] Last Admin: 10/03/23 07:55 Dose: 81 mg Atorvastatin Calcium (Atorvastatin 40 Mg Tablet) 40 mg DOBHOFF QPM [facility] Last Admin: 10/02/23 18:14 Dose: 40 mg Citalopram Hydrobromide (Citalopram 20 Mg Tablet) 20 mg PO DAILY [facility] Last Admin: 10/03/23 07:56 Dose: 20 mg Glucagon (Glucagon 1 Mg/Ml Kit 1 Ml) 1 mg IM ONCE PRN; Protocol PRN Reason: Adult Acute Hypoglycemia Nursing Prot. Dextrose (D5w) 500 mls @ 0 mls/hr IV ONCE PRN; Protocol PRN Reason: Adult Acute Hypoglycemia Prot Dextrose (D10w) 125 mls @ 750 mls/hr IV PRN PRN; Protocol PRN Reason: Adult Acute Hypoglycemia Nursing Protocol Dextrose (D10w) 250 mls @ 1,000 mls/hr IV PRN PRN; Protocol PRN Reason: Adult Acute Hypoglycemia Nursing Protocol Ciprofloxacin/Dextrose (Cipro) 400 mg in 200 mls @ 200 mls/hr IV Q12H [facility]; Protocol Last Infusion: 10/03/23 05:58 Dose: Infused Metronidazole (Flagyl Iv) 500 mg in 100 mls @ 100 mls/hr IV Q8H [facility]; Protocol Last Admin: 10/03/23 08:05 Dose: 100 mls/hr Insulin Glargine (Insulin Glargine 100 Units/1 Ml) 10 unit SUBCUT QAM [facility] Last Admin: 10/03/23 06:48 Dose: 10 unit Insulin Human Lispro (Insulin Lispro 100 Unit/1 Ml) 0 unit SUBCUT WM&BEDTIME [facility]; Protocol Last Admin: 10/03/23 07:55 Dose: 6 unit Midodrine (Midodrine 5 Mg Tablet) 5 mg PO TID [facility] Last Admin: 10/03/23 07:55 Dose: 5 mg Morphine Sulfate (Morphine 4 Mg/Ml Sdv 1 Ml) 2 mg IVP Q4H PRN PRN Reason: SEVERE PAIN Last Admin: 09/29/23 22:17 Dose: 2 mg Ondansetron HCl (Ondansetron 2 Mg/Ml Sdv 2 Ml) 4 mg IVP Q8H PRN PRN Reason: vomiting, or N/V if npo Last Admin: 09/30/23 06:22 Dose: 4 mg Pantoprazole Sodium (Pantoprazole 40 Mg Sdv) 40 mg IVP Q24H [facility] Last Admin: 10/02/23 21:35 Dose: 40 mg Polyethylene Glycol (Polyethylene Glycol 3350 Pkt 17 Gm) 17 gm PO BID [facility] Last Admin: 10/03/23 07:59 Dose: Not Given Rivaroxaban (Rivaroxaban 10 Mg Tablet) 20 mg PO DAILY [facility] Last Admin: 10/03/23 07:56 Dose: 20 mg Terazosin HCl (Terazosin 1 Mg Capsule) 1 mg PO BEDTIME [facility] Last Admin: 10/02/23 21:35 Dose: 1 mg Vitals/I&O/Wt Last Vital Signs Temp 97.3 F L 10/03/23 07:26 Pulse 83 10/03/23 08:05 Resp 16 10/03/23 08:05 BP 133/77 10/03/23 07:26 Pulse Ox 97 10/03/23 08:05 O2 Del Method Nasal Cannula 10/03/23 08:05 O2 Flow Rate 2 10/03/23 08:05 10/02/23 10/03/23 10/03/23 22:59 06:59 14:59 Intake Total 786 / 1422 500 / 1922 Output Total 1100 / 2100 200 / 200 Balance 786 / 422 -600 / -178 -200 / -200 Weight last 48 hrs Weight 126.099 kg Weight 123.831 kg Physical Exam 2 Narrative: Vital signs noted. Blood pressure improved. Comfortable sitting up in bed no apparent distress. HEENT normocephalic atraumatic neck is supple no JVP. Lungs -left basal crackles otherwise clear. Heart irregular positive S1-S2. Abdomen is soft positive bowel sounds extremities- 1+ b/l ankle edema. Neuro awake alert oriented x 3. Urinary Catheter Management: Mathew: Cath Placed During This Visit: yes, but has since been removed by the nurse Reason for Continuing Indwelling Catheter: Decision to DC Catheter Urinary Catheter Date of Insertion: 09/29/23 Urinary Catheter Time of Insertion: 02:32 Date Urinary Catheter Removed: 10/02/23 Time Urinary Catheter Discontinued: 12:42 Data 10/03/23 03:45 10/03/23 03:45 Micro: Microbiology 10/01/23 00:50 Urine Culture - Preliminary Urine,Clean Catch A&P Assessment and plan (1) DAYANNA (acute kidney injury): The patient is a 62-year-old gentleman with heart failure reduced EF of 10 to 15% status post ICD, diabetes, DVT, obesity question of sleep apnea with acute on chronic renal failure 1. CKD stage IIIb baseline creatinine 1.5 to 2.5 mg/dL abdominal ultrasound reviewed showing cirrhosis and hepatic steatosis. Mild ascites right kidney 10.1 cm poorly visualized does not comment on left kidney. However recent abdominal CT scan was normal. The patient has good urine output this is unlikely to be obstructive uropathy. The patient's urinalysis was reviewed. His protein goes from negative to 2+ at this time we will check a urine albumin creatinine and urine protein creatinine. The patient has glucose in his urine likely from his Jardiance. Most likely the patient has cardiorenal syndrome with some degree of diabetic nephrosclerosis. 2. Acute kidney injury likely from cardiorenal syndrome from poorly controlled heart failure reduced EF and diuresis. cr has improved to 2.2 mg/dL can restart low dose diuretics -if cr continues to improve, then add an ARB 3. Hyponatremia improved off of diuretics and w/ fluid restriction -Patient sodium dropped to 129. We do not have tolvaptan. I do not want to give salt tablets with heart failure. Continue fluid restriction. As patient has acute kidney injury will avoid urea. Will repeat chemistries later today and if serum sodium is dropping then will give hypertonic fluid with furosemide and monitor. As an outpatient he may need close monitoring of his chemistries and using tolvaptan to keep the sodium above 130. -low ur na noted- consistent w/ prerenal azotemia. serum na improved overnight -normal TSH - random cortisol 18. -Besides hyponatremia other electrolytes are normal. Magnesium is even a little high. Hemoglobin stable Medications reviewed. Case discussed in detail with the patient. Patient was seen using audiovisual equipment with the aid of a nurse. The patient consented to telehealth visit. Plan see above Attestations 2 Medical Necessity Statement*: Acute kidney injury on CKD, hyponatremia, heart failure reduced EF. Time Spent in Patient Care: 16 - 35 minutes (>than 50% of time sp ent in counselling and/or direct pt care on unit) . Coding Level of Care Code Acute Code for [facility] Diagnoses DAYANNA (acute kidney injury) N17.9
[2023-10-03] MEDS: bumetanide 1 mg Tablet PO (09:07)
--- NOTE | 2023-10-03 10:29 | PM.DCS ---
Discharge Providers Date of Admission: 09/29/23 15:17 Date of Discharge: October 03, 2023 Attending Provider at Admission: Marco Rust MD Attending Provider at Discharge: Marco Rust MD Primary Care Provider: Rochelle Rodriges MD Diagnoses at Discharge Discharge Diagnosis (1) DAYANNA (acute kidney injury): Status: Acute Reason for Visit Reason for Visit: resp distress Hospital Course Hospital Course Eliseo Reyes is a 62 year old male nonischemic cardiomyopathy, EF 10-15%, status post AICD, pacemaker, atrial fibrillation, CKD, type 2 diabetes mellitus, DVT, on xarelto who presents [facility] due to weakness, fatigue, shortness of breath. 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 Denies any fevers, chills, nausea, vomiting does report abdominal distention, nonspecific abdominal pain, no flank pain, no dysuria, hematuria, no cough, Patient was admitted to [facility] for acute CHF exacerbation, required inpatient diuresis, overall clinically improved, will be discharged on his home Bumex 1 mg daily, recheck creatinine on Friday Patient's hospitalization was complicated by hyponatremia, likely secondary to CHF, recheck serum sodium on Friday as outpatient. Patient was advised if he has any lightheaded or dizziness to go to the emergency room Patient's hospitalization was complicated with right upper quadrant pain 1. Technically very limited and difficult evaluation of the RIGHT upper quadrant due to patient's body habitus. 2. No cholelithiasis. 3. Small amount of ascites. 4. Mild enlargement of the liver with hepatic steatosis and possible cirrhosis. -Concerning for cardiac cirrhosis, hepatic congestion from heart failure ? Elevated LFTs, T. bili, alk phos, elevated CRP, Pro-Pedrito ? Complaints of right upper quadrant pain to palpation, given persistent complaints of plain, elevated inflammatory markers we decided to treat for acute cholecystitis, received IV antibiotics as inpatient ? Will treat for acute cholecystitis as outpatient, ciprofloxacin, Flagyl for 7 days, adhere to low-fat diet -Follow-up with general surgery as outpatient Patient's hospitalization was complicated by DAYANNA, diuresis was held during hospitalization, creatinine improved to 2.2, recheck creatinine in Friday I did detailed discussion with patient and his family about patient's underlying nonischemic cardiomyopathy EF of 10%, his DAYANNA, he has had recurrent hospitalizations, I advised him that he has a high risk of readmissions, high risk of morbidity and mortality from underlying heart disease, for now patient and family want to continue medical management Physical Exam Const: COMMON NORMALS: no acute distress and patient oriented x3 Resp: COMMON NORMALS: normal respiratory effort, No retractions, No use of accessory muscles and clear to auscultation bilaterally AUSCULTATION: clear to auscultation bilaterally Cardio: COMMON NORMALS: regular rate, regular rhythm, S1 normal heart sound present and S2 normal heart sound present RATE: regular rate RHYTHM: regular rhythm HEART SOUNDS: S1 normal heart sound present and S2 normal heart sound present GI: COMMON NORMALS: Normal to inspection, nondistended, normoactive bowel sounds present and non-tender Extremity: COMMON NORMALS: no pedal edema Neuro: COMMON NORMALS: patient oriented x3 Psych: COMMON NORMALS: mental status grossly normal Urinary Catheter Management: Mathew: Cath Placed During This Visit: yes, but has since been removed by the nurse Reason for Continuing Indwelling Catheter: Decision to DC Catheter Urinary Catheter Date of Insertion: 09/29/23 Urinary Catheter Time of Insertion: 02:32 Date Urinary Catheter Removed: 10/02/23 Time Urinary Catheter Discontinued: 12:42 Discharge Data Studies Completed and Pending Completed Studies During Hospitalization Category Date Time Status XR chest 1V portable [id number] Stat Exams 09/28/23 15:37 Completed US abdomen limited [id number] Stat Ultrasound 09/29/23 09:30 Completed Pending at discharge Category Date Time Status BMP [Basic Metabolic Panel] Stat Lab 10/03/23 11:00 Ordered Blood Culture Routine Lab 09/28/23 21:34 Results Complete Blood Count w/Auto AM LABS Lab 10/04/23 04:00 Ordered Comprehensive Metabolic Panel AM LABS Lab 10/04/23 04:00 Ordered Comprehensive Metabolic Panel AM LABS Lab 10/05/23 04:00 Ordered Comprehensive Metabolic Panel AM LABS Lab 10/06/23 04:00 Ordered Comprehensive Metabolic Panel Timed Lab 10/03/23 15:00 Ordered Magnesium AM LABS Lab 10/04/23 04:00 Ordered Magnesium AM LABS Lab 10/05/23 04:00 Ordered Magnesium AM LABS Lab 10/06/23 04:00 Ordered Osmolality Urine Routine Lab 09/30/23 23:21 Received Phosphorus AM LABS Lab 10/04/23 04:00 Ordered Phosphorus AM LABS Lab 10/05/23 04:00 Ordered Phosphorus AM LABS Lab 10/06/23 04:00 Ordered Uric Acid AM LABS Lab 10/04/23 04:00 Ordered Uric Acid Timed Lab 10/03/23 15:00 Ordered Urine Culture Stat Lab 10/01/23 00:50 Results Radiology Impressions Chest X-Ray 09/28/23 15:37 IMPRESSION: Cardiomegaly with pulmonary vascular congestion, similar in appearance to prior study. Abdomen Ultrasound 09/29/23 09:30 IMPRESSION: 1. Technically very limited and difficult evaluation of the RIGHT upper quadrant due to patient's body habitus. 2. No cholelithiasis. 3. Small amount of ascites. 4. Mild enlargement of the liver with hepatic steatosis and possible cirrhosis. Laboratory Results WBC 8.73 10^3/uL (3.29-11.43) 10/03/23 03:45 RBC 4.48 10^6/uL (3.85-5.65) 10/03/23 03:45 Hgb 11.50 g/dL (11.27-16.99) 10/03/23 03:45 Hct 38.1 % (37-53) 10/03/23 03:45 MCV 85.0 fl (82-101) 10/03/23 03:45 MCH 25.7 pg (27-33) L 10/03/23 03:45 MCHC 30.2 g/dL (30-55) 10/03/23 03:45 RDW 19.8 % (12.1-15.1) H 10/03/23 03:45 Plt Count 264 10^3/cmm (157-399) 10/03/23 03:45 MPV 9.9 fL (7.4-10.4) 10/03/23 03:45 Neut % (Auto) 68.3 % 10/03/23 03:45 Lymph % (Auto) 17.6 % 10/03/23 03:45 Dickey % (Auto) 12.1 % 10/03/23 03:45 Eos % (Auto) 0.8 % 10/03/23 03:45 Baso % (Auto) 0.5 % 10/03/23 03:45 Neut # (Auto) 5.96 10^3/uL (1.8-7.7) 10/03/23 03:45 Lymph # (Auto) 1.5 10^3/uL (0.8-4.8) 10/03/23 03:45 [place]key # (Auto) 1.1 10^3/uL (0.2-0.9) H 10/03/23 03:45 Eos # (Auto) 0.1 10^3/uL (0.0-0.8) 10/03/23 03:45 Baso # (Auto) 0.0 10^3/uL (0.0-0.1) 10/03/23 03:45 Nucleated RBC % (auto) 0.3 % 10/03/23 03:45 Nucleated RBCs # 0.0 /100WBC 10/03/23 03:45 ESR 20 mm/hr (0-10) H 09/28/23 17:01 Sodium 129 mmol/L (136-145) L 10/03/23 03:45 Potassium 4.0 mmol/L (3.5-5.1) 10/03/23 03:45 Chloride 92 mmol/L (98-107) L 10/03/23 03:45 Carbon Dioxide 26 mmol/L (22-29) 10/03/23 03:45 Anion Gap 15.0 (5-19) 10/03/23 03:45 BUN 58 mg/dL (8-23) H 10/03/23 03:45 Creatinine 2.2 mg/dL (0.7-1.2) H 10/03/23 03:45 GFR Calculation 30.4 mL/min (90-130) L 10/03/23 03:45 Glucose 232 mg/dL (65-115) H 10/03/23 03:45 POC Glucose 210 mg/dL (70-110) H 10/03/23 06:21 Calculated Osmolality 292 mOsm/kg (285-295) 10/03/23 03:45 Lactic Acid 1.8 mmol/L (0.5-2.2) 09/28/23 17:01 Uric Acid 14.1 mg/dL (3.4-7.0) H 09/30/23 16:11 Calcium 8.6 mg/dL (8.5-10.5) 10/03/23 03:45 Phosphorus 3.1 mg/dL (2.5-4.5) 10/03/23 03:45 Magnesium 2.6 mg/dL (1.7-2.3) H 10/03/23 03:45 Iron 26 ug/dL (59-158) L 10/01/23 03:22 TIBC 273 mcg/dl 10/01/23 03:22 % Saturation 9.5 % (20-50) L 10/01/23 03:22 Unsat Iron Binding 247 ug/dL (112-347) 10/01/23 03:22 Ferritin 198 ng/mL (30-400) 10/01/23 03:22 Total Bilirubin 1.3 mg/dL (0.15-1.2) H 10/03/23 03:45 Direct Bilirubin 1.10 mg/dL (0.00-0.30) H 09/30/23 03:25 Indirect Bilirubin 0.70 09/30/23 03:25 GGT 331 U/L (8-61) H 09/30/23 03:25 AST 68 U/L (0-40) H 10/03/23 03:45 ALT 95 U/L (0-41) H 10/03/23 03:45 Alkaline Phosphatase 290 U/L (40-130) H 10/03/23 03:45 Troponin T Baseline 84 ng/L (0-15) H 09/28/23 17:01 Troponin T 120 Minute 89.70 ng/L (0-15) H 09/28/23 21:34 Delta Troponin T 5.70 ABS# (0-10) 09/28/23 21:34 Troponin T Hi Sens 6Hr 80.05 ng/L (0-15) H 09/29/23 01:00 Troponin T Hi Sens 6Hr Delta -3.95 ng/L (0-12) L 09/29/23 01:00 C-Reactive Protein 44.4 mg/L (0.0-4.9) H 09/30/23 03:25 NT-Pro-B Natriuret Pep 7052 pg/mL (0-125) H 09/29/23 01:00 Total Protein 6.6 g/dL (6.6-8.7) 10/03/23 03:45 Albumin 3.0 g/dL (3.5-5.2) L 10/03/23 03:45 Globulin 3.6 g/dL (1.3-4.6) 10/03/23 03:45 Amylase 40 U/L (21-101) 09/30/23 10:19 Lipase 23 U/L (13-60) 09/30/23 03:25 Procalcitonin 0.52 ng/mL (0-0.5) H 09/30/23 03:25 TSH 1.49 uIU/mL (0.27-4.20) 10/01/23 03:22 PTH Intact 125.8 pg/mL (15-65) H 10/01/23 03:22 Calcium (PTH Intact) 9.0 mg/dL (8.5-10.5) 10/01/23 03:22 Random Cortisol 18.12 ug/dL (2.47-19.5) 10/01/23 03:22 Urine Color Yellow (Yellow) 10/01/23 00:50 Urine Appearance Clear (CLEAR) 10/01/23 00:50 Urine pH 5.5 (5-7) 10/01/23 00:50 Ur Specific [place] 1.015 (1.005-1.030) 10/01/23 00:50 Urine Protein 1+ (Negative) A 10/01/23 00:50 Urine Glucose (UA) 3+ (Normal) H 10/01/23 00:50 Urine Ketones Negative (Negative) 10/01/23 00:50 Urine Blood 1+ (Negative) A 10/01/23 00:50 Urine Nitrate Negative (Negative) 10/01/23 00:50 Urine Bilirubin Negative (Negative) 10/01/23 00:50 Urine Urobilinogen 1.0 mg/dL (Negative) 10/01/23 00:50 Ur Leukocyte Esterase 1+ (Negative) A 10/01/23 00:50 Urine RBC 11-20 /hpf (0-2) H 10/01/23 00:50 Urine WBC 21-50 /hpf (0-5) H 10/01/23 00:50 Ur Squamous Epith Cells 0-5 /hpf (0-5) 10/01/23 00:50 Amorphous Sediment Not Reportable 10/01/23 00:50 Urine Bacteria None seen /hpf (NONE) 10/01/23 00:50 Hyaline Casts 8.67 /lpf 10/01/23 00:50 Urine Yeast 2+ /hpf H 10/01/23 00:50 Ur Random Microalbumin 11 ug/dL (0-20) 10/01/23 00:50 U Random Total Protein 20 mg/dL 10/01/23 00:50 Ur Random Sodium 13 mmol/L 10/01/23 00:50 Ur Random Potassium 20 mmol/L 10/01/23 00:50 Ur Random Chloride 10 mmol/L 10/01/23 00:50 Urine Creatinine 49 mg/dL (39-259) 10/01/23 00:50 Urine Creatinine 50 mg/dL (39-259) 10/01/23 00:50 Microalb/Creat Ratio 220 mg/dL (0-20) H 10/01/23 00:50 Adenovirus (PCR) Not detected (NOT DETECT) 09/28/23 20:45 C. pneumoniae DNA (PCR) Not detected (NOT DETECT) 09/28/23 20:45 Coronavirus 229E (PCR) Not detected (NOT DETECT) 09/28/23 20:45 Human Metapneumovir PCR Not detected (NOT DETECT) 09/28/23 20:45 Influenza A (H1) PCR Not detected (NOT DETECT) 09/28/23 20:45 Influ A (H1/09) PCR Not detected (NOT DETECT) 09/28/23 20:45 Influenza A (H3) PCR Not detected (NOT DETECT) 09/28/23 20:45 Influenza Type A (PCR) Not detected (NOT DETECT) 09/28/23 20:45 Influenza Type B (PCR) Not detected (NOT DETECT) 09/28/23 20:45 M. pneumoniae (PCR) Not detected (NOT DETECT) 09/28/23 20:45 Parainfluenza 1 (PCR) Not detected (NOT DETECT) 09/28/23 20:45 Parainfluenza 2 (PCR) Not detected (NOT DETECT) 09/28/23 20:45 Parainfluenza 3 (PCR) Not detected (NOT DETECT) 09/28/23 20:45 Parainfluenza 4 (PCR) Not detected (NOT DETECT) 09/28/23 20:45 RSV Type A (PCR) Not detected (NOT DETECT) 09/28/23 20:45 RSV Type B (PCR) Not detected (NOT DETECT) 09/28/23 20:45 Entero/Rhino (PCR) Not detected (NOT DETECT) 09/28/23 20:45 SARS-CoV-2 (PCR) Not detected (NOT DETECT) 09/28/23 20:45 Vitals Last Vital Signs Temp 97.3 F L 10/03/23 07:26 Pulse 83 10/03/23 08:05 Resp 16 10/03/23 08:05 BP 133/77 10/03/23 07:26 Pulse Ox 97 10/03/23 08:05 O2 Del Method Nasal Cannula 10/03/23 08:05 O2 Flow Rate 2 10/03/23 08:05 Discharge Plan Discharge Patient Disposition: Home Condition: Stable Prescriptions: New ciprofloxacin HCl 500 mg tablet 500 mg PO BID 7 Days Qty: 14 0RF metronidazole 500 mg tablet 500 mg PO Q8H 7 Days Qty: 21 0RF Continued citalopram 20 mg tablet 20 mg PO DAILY allopurinol 100 mg tablet 100 mg PO DAILY Xarelto 20 mg tablet 20 mg PO DAILY terazosin 1 mg capsule 1 mg PO BEDTIME amiodarone 200 mg tablet 200 mg PO DAILY Qty: 90 1RF aspirin 81 mg Tablet,Delayed Release (Dr/Ec) 81 mg PO DAILY omeprazole 40 mg capsule,delayed release(DR/EC) 40 mg PO DAILY potassium chloride 20 mEq tablet extended release 20 meq PO DAILY insulin lispro [Humalog U-100 Insulin] 100 unit/mL Solution See Rx Instructions .ROUTE .COMPLEX Qty: 10 0RF Rx Instructions: Glucose: 141-180 - 6 units 181-220 - 8 221-260 - 10 261-300 - 12 301-350 - 14 351-400 - 16 >400 - 18 units polyethylene glycol 3350 17 gram Powder In Packet 17 g PO BID Qty: 100 0RF midodrine 5 mg Tablet 5 mg PO TID Qty: 90 0RF atorvastatin 80 mg tablet 40 mg PO QPM Qty: 1 0RF Rx Instructions: Reduce to 40 mg for now ergocalciferol (vitamin D2) 1,250 mcg (50,000 unit) capsule 50,000 unit PO Q7D Rx Instructions: on Friday Jardiance 25 mg Tablet 25 mg PO QAM Changed Lantus U-100 Insulin 100 unit/mL solution 10 unit SUBCUT BID Qty: 10 0RF bumetanide 1 mg Tablet 1 mg PO DAILY Qty: 90 0RF Discharge Orders: Discharge Order (Routine); Ordered 10/03/23 Ordered By: Marco Rust Referrals: Rochelle Rodriges MD [Primary Care Provider] - Prieto Guzman MD [Physician] - 1 week Discharge Diet: Cardiac Discharge Activity: Resume usual activity Patient Instructions: Opioid Safety Activity Restrictions/Additional Instructions: -recheck NA and creatinine on Friday through primary care Discharge Attestations Time Spent in Discharge Care*: greater than 30 min Quality Metrics Clinical Quality Measures [ No reported AMI, CVA or VTE this stay] Coding Level of Care Code 04940 Total time (in minutes) for Discharge: 45 Diagnoses DAYANNA (acute kidney injury) N17.9
[2023-10-03 11:08] LABS: Glucose Point of Care 390 mg/dL (70-110)
[2023-10-03 11:13] LABS: Anion Gap 14.3 (5-19); Blood Urea Nitrogen 58 mg/dL (8-23); Calcium 8.6 mg/dL (8.5-10.5); Carbon Dioxide 26 mmol/L (22-29); Chloride 93 mmol/L (98-107); Creatinine Clr Calc Pharmacy 46.4818; Glomerular Filtration Rate 30.4 mL/min (90-130); Glucose 385 mg/dL (65-115); Osmolality Calculated 300 mOsm/kg (285-295); Potassium 4.3 mmol/L (3.5-5.1); Sodium 129 mmol/L (136-145)
--- NOTE | 2023-10-03 11:49 | PC.NURSE ---
labs reviewed notified dr fair on pt's 11 am CMP results. relayed results via voalte messenger. verified timed blood draws for uric acid and cmp at 3 pm. he said to wait for blood draws at 3 pm and decision will made then if discharge or staying.
--- NOTE | 2023-10-03 11:55 | PC.NURSE ---
portable Oxygen Patient stated she called her son yesterday to bring his portable o2 tank from home today.
--- NOTE | 2023-10-03 12:10 | PC.SOCIAL ---
IMM Updated Updated pt on IMM. No questions voiced. Provided pt a copy. Initialed, dated, & timed a copy & placed in chart.
[2023-10-03 12:24] LABS: Osmolality Urine 464 mOsm/kg (50-1200)
[2023-10-03 15:52] LABS: Alanine Aminotransferase 93 U/L (0-41); Albumin Level 3.2 g/dL (3.5-5.2); Alkaline Phosphatase 287 U/L (40-130); Anion Gap 15.2 (5-19); Aspartate Amino Transferase 62 U/L (0-40); Blood Urea Nitrogen 55 mg/dL (8-23); Calcium 8.7 mg/dL (8.5-10.5); Carbon Dioxide 27 mmol/L (22-29); Chloride 95 mmol/L (98-107); Creatinine Clr Calc Pharmacy 48.6952; Globulin 3.9 g/dL (1.3-4.6); Glomerular Filtration Rate 32.1 mL/min (90-130); Glucose 271 mg/dL (65-115); Osmolality Calculated 301 mOsm/kg (285-295); Potassium 4.2 mmol/L (3.5-5.1); Sodium 133 mmol/L (136-145); Total Bilirubin 1.2 mg/dL (0.15-1.2); Total Protein 7.1 g/dL (6.6-8.7); Uric Acid 10.3 mg/dL (3.4-7.0)
--- NOTE | 2023-10-03 16:49 | PC.NURSE ---
appointments per this morning, she will call his pcp to schedule for an appointment. informed her to keep his cardiology appointment as scheduled last admission/discharge note. verbalizes understanding. preferred pharmacy is [facility] to get his new discharge meds today. meds brought meds to bed.
== END 2023-10-03 17:24 | disposition home or self-care (01) | DRG 292 ==
LOC: ER 15:12 → CSU 19:28
PROVIDERS: Internal Medicine Nephrology; Admitting Provider Family Medicine; Emergency Provider Family Medicine; PCP Internal Medicine; Visit Provider Family Medicine
DX: I50.23 Acute on chronic systolic (congestive) heart failure (principal); E87.1 Hypo-osmolality and hyponatremia; N17.9 Acute kidney failure, unspecified; I42.8 Other cardiomyopathies; E11.22 Type 2 diabetes mellitus with diabetic chronic kidney disease; N18.32 Chronic kidney disease, stage 3b; I48.91 Unspecified atrial fibrillation; K81.9 Cholecystitis, unspecified; E78.5 Hyperlipidemia, unspecified; E66.9 Obesity, unspecified; Z68.38 Body mass index [BMI] 38.0-38.9, adult; Z79.4 Long term (current) use of insulin; Z79.84 Long term (current) use of oral hypoglycemic drugs; Z79.01 Long term (current) use of anticoagulants; Z95.0 Presence of cardiac pacemaker; Z86.718 Personal history of other venous thrombosis and embolism; Z79.82 Long term (current) use of aspirin
CPT/HCPCS: 36415; 36416; 51702; 71045; 76705; 80048; 80053; 81001; 81003; 81015; 82044; 82150; 82247; 82248; 82310; 82436; 82533; 82570; 82728; 82962; 82977; 83540; 83550; 83605; 83690; 83735; 83880; 83935; 83970; 84100; 84133; 84145; 84156; 84300; 84443; 84484; 84550; 85025; 85651; 86140; 87040; 87086; 87106; 87486; 87581; 87633; 93005; 94664; 96372; 96374; 96376; 97110; 97116; 97162; 97165; 97535; 99285; A9270; G0378; J0744; J1815; J2270; J2405; J2470; J3490; Q3014

== ENCOUNTER 2023-10-07 10:19 | Observation (INO) | payer MEDICARE, SELFPAY ==
[2023-10-07] VITALS (10 sets, daily range): BP systolic 98–121; BP diastolic 72–87; PULSE 54–99; RESP 17–18; TEMP 36.6–37.1; O2SAT 93–97; BMI 37.6; BMI 38.2
--- NOTE | 2023-10-07 10:20 | ECG_ITS ---
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 Measurements Intervals [place] Rate: 90 P: 0 PA: 0 QRS: 134 QRSD: 142 T: -35 QT: 403 QTc: 495 Interpretive Statements ATRIAL FIBRILLATION RIGHT AXIS DEVIATION [QRS AXIS > 100] INTRAVENTRICULAR CONDUCTION DELAY [130+ ms QRS DURATION] Compared to ECG 09/29/2023 03:06:27 Ventricular premature complex(es) no longer present Aberrant conduction of supraventricular beat(s) no longer present Electronically Signed On 10-07-2023 16:27:20 CDT by Santiago Walden M.D. [id number]
--- NOTE | 2023-10-07 10:53 | XR_ITS ---
WS: [id number] Examination: XR chest 1V portable [id number] Reason for Exam: weakness Date: October 07, 2023 Comparison: September 28, 2023 Findings: There is cardiomegaly again noted. A right ventricular pacer defibrillator wires also again seen The lung markings are increased with asymmetric infiltrate and effusion in the right base. Overt fail ure is not appreciated on this study. XR/XR chest 1V portable [id number] Impression: There is a developing right basilar infiltrate with pleural effusion. The heart is enlarged.
[2023-10-07 11:18] LABS: Basophils % 0.3 %; Eosinophils % 0.2 %; Hematocrit 39.9 % (37-53); Lymphocytes # 1.1 10^3/uL (0.8-4.8); Lymphocytes % 12.3 %; Mean Corpuscular HGB Conc 30.1 g/dL (30-55); Mean Corpuscular Hemoglobin 25.3 pg (27-33); Mean Platelet Volume 9.2 fL (7.4-10.4); Monocytes # 0.9 10^3/uL (0.2-0.9); Monocytes % 10.5 %; Neutrophils # 6.84 10^3/uL (1.8-7.7); Neutrophils % 76.5 %; Nucleated Red Blood Cells % 0 %; Platelet Count 275 10^3/cmm (157-399); Red Blood Count 4.75 10^6/uL (3.85-5.65); Red Cell Distribution Width 19.9 % (12.1-15.1); White Blood Count 8.95 10^3/uL (3.29-11.43)
--- NOTE | 2023-10-07 11:32 | ED_ITS ---
HPI - General Adult 2 General: Chief complaint: General Medical Stated complaint: SOB Time Seen by Provider: 10/07/23 11:11 Source: patient Mode of arrival: ambulatory Limitations: no limitations History of Present Illness: 62-year-old male has a history of conges tive heart failure along with chronic kidney disease been admitted multiple times recently states that he went to see disaster response director today as blood pressures in the 70s today states has been feeling extremely weak for the last 2 days he has had some dyspnea as well. He denies any cough or fever denies any vomiting or diarrhea Associated symptoms: Reports dyspnea and malaise; Deny chest pain, headache(s), nausea, rash or vomiting Related Data Home Medications Medication Instructions Recorded Confirmed allopurinol 100 mg tablet 100 mg PO DAILY 06/30/19 09/28/23 citalopram 20 mg tablet 20 mg PO DAILY 06/30/19 09/28/23 rivaroxaban 20 mg tablet (Xarelto) 20 mg PO DAILY 06/30/19 09/28/23 terazosin 1 mg capsule 1 mg PO BEDTIME 06/30/19 09/28/23 ergocalciferol (vitamin D2) 1,250 50,000 unit PO Q7D 03/02/23 09/28/23 mcg (50,000 unit) capsule empagliflozin 25 mg tablet 25 mg PO QAM 04/29/23 09/28/23 (Jardiance) aspirin 81 mg tablet,delayed 81 mg PO DAILY 08/29/23 09/28/23 release omeprazole 40 mg capsule,delayed 40 mg PO DAILY 09/18/23 09/28/23 release potassium chloride 20 mEq 20 meq PO DAILY 09/18/23 09/28/23 tablet,extended release Previous Rx's Medication Instructions Recorded amiodarone 200 mg tablet 200 mg PO DAILY #90 tabs 03/14/23 atorvastatin 80 mg tablet 40 mg (1/2 x 80 mg) PO QPM #1 tab 09/26/23 insulin lispro 100 unit/mL See Rx Instructions .Route 09/26/23 subcutaneous solution (Humalog .COMPLEX #10 mL U-100 Insulin) midodrine 5 mg tablet 5 mg PO TID #90 tabs 09/26/23 polyethylene glycol 3350 17 gram 17 g PO BID #100 ea 09/26/23 oral powder packet bumetanide 1 mg tablet 1 mg PO DAILY #90 tabs 10/03/23 ciprofloxacin HCl 500 mg tablet 500 mg PO BID 7 days #14 tabs 10/03/23 insulin glargine 100 unit/mL 10 unit (0.1 mL) SUBCUT BID #10 mL 10/03/23 subcutaneous solution (Lantus U-100 Insulin) metronidazole 500 mg tablet 500 mg PO Q8H 7 days #21 tabs 10/03/23 Allergies Allergy/AdvReac Type Severity Reaction Status Date / Time No Known Allergies Allergy Verified 08/29/23 08:53 Review of Systems 2 Const: Reports: fatigue and malaise; Denies: fever(s), chills, body aches or change in appetite Eyes: Denies: blurry vision or eye discomfort ENMT: Denies: throat pain or dental pain Card: Denies: chest pain Resp: Reports: dyspnea GI: Denies: abdominal pain, nausea, vomiting or diarrhea Musc: Denies: neck pain or back pain Skin/Breast: Denies: rash Neuro: Denies: headache(s) PFSH ED 2 PFSH: Medical History Arthritis Chronic kidney disease Atrial fibrillation Anticoagulation adequate with anticoagulant therapy Dyslipidemia NAKUL (obstructive sleep apnea) CHF (congestive heart failure) Diabetes DVT (deep venous thrombosis) Cardiomyopathy Surgical History S/P knee replacement S/P ICD (internal cardiac defibrillator) procedure Family History Father Stroke CAD (coronary artery disease) Sister Stroke Brother Stroke Other Hypertension Social History Smoking and tobacco/nicotine status: never used tobacco/nicotine Alcohol intake: never Substance/Drug Use: never Physical Exam 2 Const: COMMON NORMALS: patient oriented x3 GENERAL APPEARANCE: ill appearing HENMT: COMMON NORMALS: normocephalic and atraumatic HEAD & SCALP: n ormocephalic and atraumatic Eye: COMMON NORMALS: Equal, round and reactive pupils present and EOMs intact bilaterally PUPIL: Yes Equal, round and reactive pupils present Neck/C-Spine: COMMON NORMALS: full ROM and supple Chest: COMMONS NORMALS: normal inspection of the chest Resp: COMMON NORMALS: No retractions and No use of accessory muscles A USCULTATION: crackles and rales Cardio: COMMON NORMALS: regular rate and No murmurs present (Cardio) RATE: regular rate RHYTHM: abnormal rhythm irregularly irregular GI: COMMON NORMALS: Normal to inspection, nondistended, normoactive bowel sounds present, Soft to palpation, non-tender and no masses PALPATION: Yes Soft to palpation Extremity: COMMON NORMALS: normal to inspection and full ROM Neuro: COMMON NORMALS: patient oriented x3, moves all extremities and no focal motor deficits Psych: COMMON NORMALS: mental status grossly normal, Normal thought process present and cooperative THOUGHT PROCESS: Normal thought process present Skin: COMMON NORMALS: no rashes or lesions noted and no wounds GENERAL SKIN EXAM: no rashes or lesions noted Course 2 Vital Signs: Vital signs: Vital Signs Temperature 97.9 F 10/07/23 10:26 Pulse Rate 94 10/07/23 11:41 Respiratory Rate 18 10/07/23 11:41 Blood Pressure 111/76 10/07/23 11:41 Pulse Oximetry 94 10/07/23 11:41 Oxygen Delivery Me thod Room Air 10/07/23 11:41 MDM - General Adult Medical Decision Making Patient presents here with generalized weakness x-ray shows a right sided pneumonia he also has a history of CHF could be some pulmonary edema we will start him on antibiotics did speak to the hospitalist will admit at this time. Medical Records I reviewed the patient's medical records. Lab Data I reviewed the patient's lab results. 10/07/23 11:12 10/07/23 11:12 Radiology Impressions Chest X-Ray 10/07/23 10:53 Impression: There is a developing right basilar infiltrate with pleural effusion. The heart is enlarged. Laboratory Results WBC 8.95 10^3/uL (3.29-11.43) 10/07/23 11:12 RBC 4.75 10^6/uL (3.85-5.65) 10/07/23 11:12 Hgb 12.00 g/dL (11.27-16.99) 10/07/23 11:12 Hct 39.9 % (37-53) 10/07/23 11:12 MCV 84.0 fl (82-101) 10/07/23 11:12 MCH 25.3 pg (27-33) L 10/07/23 11:12 MCHC 30.1 g/dL (30-55) 10/07/23 11:12 RDW 19.9 % (12.1-15.1) H 10/07/23 11:12 Plt Count 275 10^3/cmm (157-399) 10/07/23 11:12 MPV 9.2 fL (7.4-10.4) 10/07/23 11:12 Neut % (Auto) 76.5 % 10/07/23 11:12 Lymph % (Auto) 12.3 % 10/07/23 11:12 [place] % (Auto) 10.5 % 10/07/23 11:12 Eos % (Auto) 0.2 % 10/07/23 11:12 Baso % (Auto) 0.3 % 10/07/23 11:12 Neut # (Auto) 6.84 10^3/uL (1.8-7.7) 10/07/23 11:12 Lymph # (Auto) 1.1 10^3/uL (0.8-4.8) 10/07/23 11:12 [place] # (Auto) 0.9 10^3/uL (0.2-0.9) 10/07/23 11:12 Eos # (Auto) 0.0 10^3/uL (0.0-0.8) 10/07/23 11:12 Baso # (Auto) 0.0 10^3/uL (0.0-0.1) 10/07/23 11:12 Nucleated RBC % (auto) 0 % 10/07/23 11:12 Nucleated RBCs # 0.0 /100WBC 10/07/23 11:12 Sodium 135 mmol/L (136-145) L 10/07/23 11:12 Potassium 4.4 mmol/L (3.5-5.1) 10/07/23 11:12 Chloride 97 mmol/L (98-107) L 10/07/23 11:12 Carbon Dioxide 28 mmol/L (22-29) 10/07/23 11:12 Anion Gap 14.4 (5-19) 10/07/23 11:12 BUN 42 mg/dL (8-23) H 10/07/23 11:12 Creatinine 2.2 mg/dL (0.7-1.2) H 10/07/23 11:12 GFR Calculation 30.4 mL/min (90-130) L 10/07/23 11:12 Glucose 75 mg/dL (65-115) 10/07/23 11:12 Calculated Osmolality 289 mOsm/kg (285-295) 10/07/23 11:12 Lactic Acid 1.7 mmol/L (0.5-2.2) 10/07/23 11:12 Calcium 9.2 mg/dL (8.5-10.5) 10/07/23 11:12 Total Bilirubin 1.3 mg/dL (0.15-1.2) H 10/07/23 11:12 AST 39 U/L (0-40) 10/07/23 11:12 ALT 50 U/L (0-41) H 10/07/23 11:12 Alkaline Phosphatase 276 U/L (40-130) H 10/07/23 11:12 NT-Pro-B Natriuret Pep 6022 pg/mL (0-125) H 10/07/23 11:12 Total Protein 7.4 g/dL (6.6-8.7) 10/07/23 11:12 Albumin 3.3 g/dL (3.5-5.2) L 10/07/23 11:12 Globulin 4.1 g/dL (1.3-4.6) 10/07/23 11:12 Lipase 28 U/L (13-60) 10/07/23 11:12 Urine Color Yellow (Yellow) 10/07/23 11:52 Urine Appearance Clear (CLEAR) 10/07/23 11:52 Urine pH 7.0 (5-7) 10/07/23 11:52 Ur Specific [place] 1.012 (1.005-1.030) 10/07/23 11:52 Urine Protein 2+ (Negative) A 10/07/23 11:52 Urine Glucose (UA) 2+ (Normal) H 10/07/23 11:52 Urine Ketones Negative (Negative) 10/07/23 11:52 Urine Blood Negative (Negative) 10/07/23 11:52 Urine Nitrate Negative (Negative) 10/07/23 11:52 Urine Bilirubin Negative (Negative) 10/07/23 11:52 Urine Urobilinogen 1.0 mg/dL (Negative) 10/07/23 11:52 Ur Leukocyte Esterase Negative (Negative) 10/07/23 11:52 Urine RBC 0-2 /hpf (0-2) 10/07/23 11:52 Urine WBC 0-5 /hpf (0-5) 10/07/23 11:52 Ur Squamous Epith Cells 0-5 /hpf (0-5) 10/07/23 11:52 Amorphous Sediment Not Reportable 10/07/23 11:52 Urine Bacteria None seen /hpf (NONE) 10/07/23 11:52 Hyaline Casts 1.21 /lpf 10/07/23 11:52 All radiology interpretation(s) finalized by discharge Discharge Plan Discharge Patient Disposition: Admitted As Inpatient Clinical Impression: CHF exacerbation, Pneumonia Condition: Stable Prescriptions: No Action citalopram 20 mg tablet 20 mg PO DAILY allopurinol 100 mg tablet 100 mg PO DAILY Xarelto 20 mg tablet 20 mg PO DAILY terazosin 1 mg capsule 1 mg PO BEDTIME amiodarone 200 mg tablet 200 mg PO DAILY Qty: 90 1RF aspirin 81 mg Tablet,Delayed Release (Dr/Ec) 81 mg PO DAILY omeprazole 40 mg capsule,delayed release(DR/EC) 40 mg PO DAILY potassium chloride 20 mEq tablet extended release 20 meq PO DAILY insulin lispro [Humalog U-100 Insulin] 100 unit/mL Solution See Rx Instructions .ROUTE .COMPLEX Qty: 10 0RF Rx Instructions: Glucose: 141-180 - 6 units 181-220 - 8 221-260 - 10 261-300 - 12 301-350 - 14 351-400 - 16 >400 - 18 units polyethylene glycol 3350 17 gram Powder In Packet 17 g PO BID Qty: 100 0RF midodrine 5 mg Tablet 5 mg PO TID Qty: 90 0RF atorvastatin 80 mg tablet 40 mg PO QPM Qty: 1 0RF Rx Instructions: Reduce to 40 mg for now ergocalciferol (vitamin D2) 1,250 mcg (50,000 unit) capsule 50,000 unit PO Q7D Rx Instructions: on Friday Jardiance 25 mg Tablet 25 mg PO QAM ciprofloxacin HCl 500 mg tablet 500 mg PO BID 7 Days Qty: 14 0RF metronidazole 500 mg tablet 500 mg PO Q8H 7 Days Qty: 21 0RF Lantus U-100 Insulin 100 unit/mL solution 10 unit SUBCUT BID Qty: 10 0RF bumetanide 1 mg Tablet 1 mg PO DAILY Qty: 90 0RF Referrals: Rochelle Rodriges MD [Primary Care Provider] - Coding Level of Care Code ED Wireless Operator for Zechariah Vicente
[2023-10-07 11:38] LABS: Alanine Aminotransferase 50 U/L (0-41); Albumin Level 3.3 g/dL (3.5-5.2); Alkaline Phosphatase 276 U/L (40-130); Anion Gap 14.4 (5-19); Aspartate Amino Transferase 39 U/L (0-40); Blood Urea Nitrogen 42 mg/dL (8-23); Calcium 9.2 mg/dL (8.5-10.5); Carbon Dioxide 28 mmol/L (22-29); Chloride 97 mmol/L (98-107); Creatinine Clr Calc Pharmacy 45.7761; Globulin 4.1 g/dL (1.3-4.6); Glomerular Filtration Rate 30.4 mL/min (90-130); Glucose 75 mg/dL (65-115); Lipase 28 U/L (13-60); Osmolality Calculated 289 mOsm/kg (285-295); Potassium 4.4 mmol/L (3.5-5.1); Sodium 135 mmol/L (136-145); Total Bilirubin 1.3 mg/dL (0.15-1.2); Total Protein 7.4 g/dL (6.6-8.7)
[2023-10-07 11:51] LABS: Lactic Sepsis W/Reflex 1.7 mmol/L (0.5-2.2)
[2023-10-07 12:04] LABS: NT Pro B Type Natriuretic Pept 6022 pg/mL (0-125)
[2023-10-07 12:07] LABS: Charge for UA Resulting for Rev
[2023-10-07 12:11] LABS: Bilirubin Urine Negative (Negative); Blood Urine Negative (Negative); Glucose Urine UA 2+ (Normal); Ketones Urine Negative (Negative); Leukocyte Esterase Urine Negative (Negative); Nitrate Urine Negative (Negative); Protein Urine 2+ (Negative); Specific Gravity, Urine 1.012 (1.005-1.030); Urine Appearance Clear (CLEAR); Urine Color Yellow (Yellow)
[2023-10-07 12:16] LABS: Bacteria Urine None Seen /hpf; Hyaline Casts Urine 1.21 /lpf; RBC Urine 0-2 /hpf (0-2); Squamous Epithelial Cell Urine 0-5 /hpf (0-5); WBC Urine 0-5 /hpf (0-5)
[2023-10-07] MEDS: cefTRIAXone 1,000 mg SDV 1000 MG IVP (12:26)
[2023-10-07] MEDS: azithromycin 500 MG in sodium chloride 0.9% 250 ML 250 MG IV (12:32)
[2023-10-07 12:42] LABS: Glucose Point of Care 74 mg/dL (70-110)
--- NOTE | 2023-10-07 12:52 | PC.NURSE ---
pt reports being diabetic, son in room states he drops fast. this nurse checked blood glucose, 74. this nurse asked Dr. Main if pt can eat and drink, yes. pt given 2 puddings.
--- NOTE | 2023-10-07 13:10 | PC.PHAR ---
Addendum entered by Melani Isaac 10/07/23 13:13: STATES PT NO LONGER TAKING TRULICITY LAST FILL 08/18/23, METOLAZONE, SPIRONOLACTONE, LASIX, AND ENTERESTO-ALL FILLED LAST 06/24/23. Original Note: VERIFIED CURRENT MED LIST WITH -STEPHANIE. SHE HAD BOTTLES IN FRONT OF HER. NEW MED MIDODRINE 5 MG 3 TIMES DAILY-PT NEEDS NOON DOSE, TODAY.
--- NOTE | 2023-10-07 13:23 | PC.NURSE ---
attempted to call report, no answer on med surg. will try again in few moments.
--- NOTE | 2023-10-07 13:37 | PM.HP ---
Providers/Chief Complaint Admitting Physician: Mayra Piña MD Primary Care Provider: Rochelle Rodriges MD Chief Complaint: SOB History of Present Illness Eliseo Reyes is a 62 year old male nonischemic cardiomyopathy, EF 10-15%, status post AICD, pacemaker, atrial fibrillation, CKD, type 2 diabetes mellitus, DVT, on xarelto who presented to the hospital for low blood pressure. Patient was at nephrology clinic for evaluation of chronic kidney disease when nurse took his blood pressure it was 70/50 mmHg and he was sent to the ER for further evaluation. Patient is denying chest pain recent diarrhea or vomiting. He has been taking diuretic consistently stating that he was making good urine which has decreased in last few days. Patient stating that he has gained 4 pounds. He has not noticed any chest pain, fever, nausea vomiting or diarrhea He is trying to watch his sodium and fluid intake in a day In the ER he was given antibiotics for right-sided pneumonia Review of Systems Const: Denies: fever(s) Eyes: Denies: change in vision ENMT: Denies: throat pain Card: Denies: chest pain Resp: Denies: dyspnea GI: Denies: abdominal pain : Denies: flank pain Medications/Allergies Home Medications Medication Instructions Recorded Confirmed Last Taken Type allopurinol 100 mg tablet 100 mg PO DAILY 06/30/19 10/07/23 10/07/23 History citalopram 20 mg tablet 20 mg PO DAILY 06/30/19 10/07/23 10/07/23 History rivaroxaban 20 mg tablet (Xarelto) 20 mg PO DAILY 06/30/19 10/07/23 10/07/23 History terazosin 1 mg capsule 1 mg PO BEDTIME 06/30/19 10/07/23 10/06/23 History ergocalciferol (vitamin D2) 1,250 50,000 unit PO Q7D 03/02/23 10/07/23 10/01/23 History mcg (50,000 unit) capsule amiodarone 200 mg tablet 200 mg PO DAILY #90 tabs 03/14/23 10/07/23 10/07/23 Rx empagliflozin 25 mg tablet 25 mg PO QAM 04/29/23 10/07/23 10/07/23 History (Jardiance) aspirin 81 mg tablet,delayed 81 mg PO DAILY 08/29/23 10/07/23 10/07/23 History release omeprazole 40 mg capsule,delayed 40 mg PO DAILY 09/18/23 10/07/23 10/07/23 History release potassium chloride 20 mEq 20 meq PO DAILY 09/18/23 10/07/23 10/07/23 History tablet,extended release atorvastatin 80 mg tablet 40 mg (1/2 x 80 mg) PO QPM #1 tab 09/26/23 10/07/23 10/06/23 Rx insulin lispro 100 unit/mL See Rx Instructions .Route 09/26/23 10/07/23 10/07/23 Rx subcutaneous solution (Humalog .COMPLEX #10 mL U-100 Insulin) midodrine 5 mg tablet 5 mg PO TID #90 tabs 09/26/23 10/07/23 10/07/23 Rx bumetanide 1 mg tablet 1 mg PO DAILY #90 tabs 10/03/23 10/07/23 10/07/23 Rx ciprofloxacin HCl 500 mg tablet 500 mg PO BID 7 days #14 tabs 10/03/23 10/07/23 10/07/23 Rx metronidazole 500 mg tablet 500 mg PO Q8H 7 days #21 tabs 10/03/23 10/07/23 10/07/23 Rx insulin glargine 100 unit/mL 25 unit SUBCUT BID 10/07/23 10/07/23 10/07/23 History subcutaneous solution (Lantus U-100 Insulin) polyethylene glycol 3350 17 gram 17 g PO BID PRN Constipation 10/07/23 10/07/23 10/04/23 History oral powder packet Allergies Allergy/AdvReac Type Severity Reaction Status Date / Time No Known Allergies Allergy Verified 08/29/23 08:53 PFSH Acute PFSH: Medical History Arthritis Chronic kidney disease Atrial fibrillation Anticoagulation adequate with anticoagulant therapy Dyslipidemia NAKUL (obstructive sleep apnea) CHF (congestive heart failure) Diabetes DVT (deep venous thrombosis) Cardiomyopathy Surgical History S/P knee replacement S/P ICD (internal cardiac defibrillator) procedure Family History Father Stroke CAD (coronary artery disease) Sister Stroke Brother Stroke Other Hypertension Social History Smoking and tobacco/nicotine status: never used tobacco/nicotine Alcohol intake: never Substance/Drug Use: never Vitals/I&O/Wt Last Vital Signs Temp 97.9 F 10/07/23 10:26 Pulse 89 10/07/23 13:00 Resp 17 10/07/23 13:00 BP 111/72 10/07/23 13:00 Pulse Ox 93 10/07/23 13:00 O2 Del Method Room Air 10/07/23 13:00 Weight last 48 hrs Weight 122.47 kg Physical Exam Narrative: Patient has mild signs of fluid overload Currently hemodynamic stable Currently on room air Distended abdomen nontender Pleasant cough Nonfocal neuroexam GCS 15 S1, S2 variable Data 10/07/23 11:12 10/07/23 11:12 Micro: Microbiology 10/07/23 11:48 Blood Culture - Preliminary Blood SPECIMEN COLLECTED 10/07/23 12:00 Blood Culture - Preliminary Blood SPECIMEN COLLECTED A&P Assessment and plan (1) Cardiomyopathy: Qualifiers: Cardiomyopathy type: unspecified Qualified Code(s): I42.9 - Cardiomyopathy, unspecified (2) Secondary nonischemic congestive cardiomyopathy: (3) Low output heart failure: (4) Atrial fibrillation: Qualifiers: Atrial fibrillation type: paroxysmal Qualified Code(s): I48.0 - Paroxysmal atrial fibrillation (5) DVT (deep venous thrombosis): (6) Diabetes: Qualifiers: Diabetes mellitus complication detail: with other circulatory complications Diabetes mellitus complication status: with circulatory complication Diabetes mellitus assistant terminal manager insulin use: with intermediate use Diabetes mellitus type: type 2 Qualified Code(s): E11.59 - Type 2 diabetes mellitus with other circulatory complications; Z79.4 - USP (current) use of insulin (7) Chronic kidney disease: (8) Pneumonia: Plan Community-acquired pneumonia Low blood pressure with pneumonia No sign of sepsis Continue doxycycline and cefepime Afebrile Sputum culture and MRSA Nonischemic cardiomyopathy, patient with such low EF of 10 to have low blood pressure I would avoid giving him more IV fluids at this point Chronic kidney disease currently at baseline Mild signs of fluid overload Judicious use of diuretics Full code Cardiac diet Discharging in next 48 hours most likely Attestations Medical Necessity Statement*: Plan to discharge within 40 hours Diagnoses Cardiomyopathy I42.9 Cardiomyopathy type: unspecified Secondary nonischemic congestive cardiomyopathy I42.0 Low output heart failure I50.9 Paroxysmal atrial fibrillation I48.0 Atrial fibrillation type: paroxysmal DVT (deep venous thrombosis) I82.409 Type 2 diabetes mellitus with other circulatory complication, with long-term current use of insulin E11.59; Z79.4 Diabetes mellitus complication detail: with other circulatory complications Diabetes mellitus complication status: with circulatory complication Diabetes mellitus assistant terminal manager insulin use: with intermediate use Diabetes mellitus type: type 2 Chronic kidney disease N18.9 Pneumonia J18.9
--- NOTE | 2023-10-07 13:39 | PC.NURSE ---
report called to Isha MINORurology surgeon at [phone].
[2023-10-07] MEDS: heparin 5,000 unit/mL INJ 1 mL 5000 UNIT SUBCUT (15:36)
[2023-10-07] MEDS: cefepime 1,000 MG in sodium chloride 0.9% (plus) 50 ML 100 MG IV (15:36)
[2023-10-07 16:52] LABS: Glucose Point of Care 97 mg/dL (70-110)
[2023-10-07] MEDS: doxycycline 100 mg Tablet PO (17:55)
[2023-10-07 21:06] LABS: Glucose Point of Care 214 mg/dL (70-110)
[2023-10-08] MEDS: cefepime 1,000 MG in sodium chloride 0.9% (plus) 50 ML 100 MG IV (03:43)
[2023-10-08] MEDS: heparin 5,000 unit/mL INJ 1 mL 5000 UNIT SUBCUT (03:44)
[2023-10-08 04:00] VITALS: BP 114/83; PULSE 76; RESP 16; TEMP 36.6; O2SAT 97
[2023-10-08 05:13] LABS: Basophils % 0.4 %; Eosinophils % 0.3 %; Hematocrit 38.7 % (37-53); Lymphocytes # 1.4 10^3/uL (0.8-4.8); Lymphocytes % 14.7 %; Mean Corpuscular HGB Conc 29.7 g/dL (30-55); Mean Corpuscular Volume 84.1 fl (82-101); Mean Platelet Volume 9.8 fL (7.4-10.4); Monocytes # 0.9 10^3/uL (0.2-0.9); Monocytes % 9.5 %; Neutrophils # 6.94 10^3/uL (1.8-7.7); Neutrophils % 74.8 %; Nucleated Red Blood Cells % 0 %; Platelet Count 288 10^3/cmm (157-399); Red Cell Distribution Width 19.9 % (12.1-15.1); White Blood Count 9.29 10^3/uL (3.29-11.43)
[2023-10-08 05:30] LABS: Blood Urea Nitrogen 42 mg/dL (8-23); Calcium 8.7 mg/dL (8.5-10.5); Carbon Dioxide 23 mmol/L (22-29); Chloride 97 mmol/L (98-107); Creatinine Clr Calc Pharmacy 47.9559; Glomerular Filtration Rate 32.1 mL/min (90-130); Glucose 174 mg/dL (65-115); Osmolality Calculated 289 mOsm/kg (285-295); Sodium 132 mmol/L (136-145)
[2023-10-08 05:34] LABS: Anion Gap 16.6 (5-19); Potassium 4.6 mmol/L (3.5-5.1)
[2023-10-08 06:18] LABS: Glucose Point of Care 180 mg/dL (70-110)
[2023-10-08 07:31] VITALS: BP 123/88; PULSE 101; RESP 17; O2SAT 97
[2023-10-08 08:10] VITALS: PULSE 56; RESP 16; O2SAT 96
--- NOTE | 2023-10-08 08:26 | P.DS_ITS ---
Discharge Providers Date of Admission: 10/07/23 13:12 Date of Discharge: October 08, 2023 Attending Provider at Admission: Mayra Piña MD Attending Provider at Discharge: Mayra Piña MD Primary Care Provider: Rochelle Rodriges MD Diagnoses at Discharge Discharge Diagnosis (1) Cardiomyopathy: Status: Acute Qualifiers: Cardiomyopathy type: unspecified Qualified Code(s): I42.9 - Cardiomyopathy, unspecified Permanent problem details: Nonobstructive per angiogram 03/19, EF 10-15 % on echo in 09/16 (2) Secondary nonischemic congestive cardiomyopathy: Status: Acute (3) Low output heart failure: Status: Acute (4) Atrial fibrillation: Status: Acute Qualifiers: Atrial fibrillation type: paroxysmal Qualified Code(s): I48.0 - Paroxysmal atrial fibrillation (5) DVT (deep venous thrombosis): Status: Acute (6) Diabetes: Status: Acute Qualifiers: Diabetes mellitus complication detail: with other circulatory complications Diabetes mellitus complication status: with circulatory complication Diabetes mellitus ferry terminal agent insulin use: with ferry terminal agent use Diabetes mellitus type: type 2 Qualified Code(s): E11.59 - Type 2 diabetes mellitus with other circulatory complications; 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 Patient remained hemodynamically stable throughout his hospitalization. We did not give him aggressive IV fluids. Considering his poor EF I do believe his pressure will stay low. His creatinine remained at baseline, there was also concern for development of right middle lobe pneumonia for which she required IV antibiotics in the hospital with ceftriaxone in the ER and then I kept him on cefepime and doxycycline. At the time of discharge we will add levofloxacin to be taken every other day. Patient is watching his fluid and sodium intake he may resume his Bumex. For A-fib he will continue his rivaroxaban along amiodarone. Physical Exam Narrative: Awake and alert GCS 15 Pleasant cooperative S1, S2 variable Hemodynamically stable Signs of fluid overload present without significant worsening Patient sitting in a chair Currently on room air Discharge Data Studies Completed and Pending Completed Studies During Hospitalization Category Date Time Status XR chest 1V portable [id number] Stat Exams 10/07/23 10:53 Completed Pending at discharge Category Date Time Status Blood Culture Stat Lab 10/07/23 11:48 Results MRSA [Methicillin Resistant S.aureu] Routine Lab 10/07/23 15:26 Received Radiology Impressions Chest X-Ray 10/07/23 10:53 Impression: There is a developing right basilar infiltrate with pleural effusion. The heart is enlarged. Laboratory Results WBC 9.29 10^3/uL (3.29-11.43) 10/08/23 04:57 RBC 4.60 10^6/uL (3.85-5.65) 10/08/23 04:57 Hgb 11.50 g/dL (11.27-16.99) 10/08/23 04:57 Hct 38.7 % (37-53) 10/08/23 04:57 MCV 84.1 fl (82-101) 10/08/23 04:57 MCH 25.0 pg (27-33) L 10/08/23 04:57 MCHC 29.7 g/dL (30-55) L 10/08/23 04:57 RDW 19.9 % (12.1-15.1) H 10/08/23 04:57 Plt Count 288 10^3/cmm (157-399) 10/08/23 04:57 MPV 9.8 fL (7.4-10.4) 10/08/23 04:57 Neut % (Auto) 74.8 % 10/08/23 04:57 Lymph % (Auto) 14.7 % 10/08/23 04:57 [place] % (Auto) 9.5 % 10/08/23 04:57 Eos % (Auto) 0.3 % 10/08/23 04:57 Baso % (Auto) 0.4 % 10/08/23 04:57 Neut # (Auto) 6.94 10^3/uL (1.8-7.7) 10/08/23 04:57 Lymph # (Auto) 1.4 10^3/uL (0.8-4.8) 10/08/23 04:57 [place] # (Auto) 0.9 10^3/uL (0.2-0.9) 10/08/23 04:57 Eos # (Auto) 0.0 10^3/uL (0.0-0.8) 10/08/23 04:57 Baso # (Auto) 0.0 10^3/uL (0.0-0.1) 10/08/23 04:57 Nucleated RBC % (auto) 0 % 10/08/23 04:57 Nucleated RBCs # 0.0 /100WBC 10/08/23 04:57 Sodium 132 mmol/L (136-145) L 10/08/23 04:57 Potassium 4.6 mmol/L (3.5-5.1) 10/08/23 04:57 Chloride 97 mmol/L (98-107) L 10/08/23 04:57 Carbon Dioxide 23 mmol/L (22-29) 10/08/23 04:57 Anion Gap 16.6 (5-19) 10/08/23 04:57 BUN 42 mg/dL (8-23) H 10/08/23 04:57 Creatinine 2.1 mg/dL (0.7-1.2) H 10/08/23 04:57 GFR Calculation 32.1 mL/min (90-130) L 10/08/23 04:57 Glucose 174 mg/dL (65-115) H 10/08/23 04:57 POC Glucose 180 mg/dL (70-110) H 10/08/23 06:13 Calculated Osmolality 289 mOsm/kg (285-295) 10/08/23 04:57 Lactic Acid 1.7 mmol/L (0.5-2.2) 10/07/23 11:12 Calcium 8.7 mg/dL (8.5-10.5) 10/08/23 04:57 Magnesium 2.0 mg/dL (1.7-2.3) 10/08/23 04:57 Total Bilirubin 1.3 mg/dL (0.15-1.2) H 10/07/23 11:12 AST 39 U/L (0-40) 10/07/23 11:12 ALT 50 U/L (0-41) H 10/07/23 11:12 Alkaline Phosphatase 276 U/L (40-130) H 10/07/23 11:12 NT-Pro-B Natriuret Pep 6022 pg/mL (0-125) H 10/07/23 11:12 Total Protein 7.4 g/dL (6.6-8.7) 10/07/23 11:12 Albumin 3.3 g/dL (3.5-5.2) L 10/07/23 11:12 Globulin 4.1 g/dL (1.3-4.6) 10/07/23 11:12 Lipase 28 U/L (13-60) 10/07/23 11:12 Urine Color Yellow (Yellow) 10/07/23 11:52 Urine Appearance Clear (CLEAR) 10/07/23 11:52 Urine pH 7.0 (5-7) 10/07/23 11:52 Ur Specific [place] 1.012 (1.005-1.030) 10/07/23 11:52 Urine Protein 2+ (Negative) A 10/07/23 11:52 Urine Glucose (UA) 2+ (Normal) H 10/07/23 11:52 Urine Ketones Negative (Negative) 10/07/23 11:52 Urine Blood Negative (Negative) 10/07/23 11:52 Urine Nitrate Negative (Negative) 10/07/23 11:52 Urine Bilirubin Negative (Negative) 10/07/23 11:52 Urine Urobilinogen 1.0 mg/dL (Negative) 10/07/23 11:52 Ur Leukocyte Esterase Negative (Negative) 10/07/23 11:52 Urine RBC 0-2 /hpf (0-2) 10/07/23 11:52 Urine WBC 0-5 /hpf (0-5) 10/07/23 11:52 Ur Squamous Epith Cells 0-5 /hpf (0-5) 10/07/23 11:52 Amorphous Sediment Not Reportable 10/07/23 11:52 Urine Bacteria None seen /hpf (NONE) 10/07/23 11:52 Hyaline Casts 1.21 /lpf 10/07/23 11:52 Vitals Last Vital Signs Temp 97.9 F 10/08/23 04:00 Pulse 56 L 10/08/23 08:10 Resp 16 10/08/23 08:10 BP 123/88 10/08/23 07:31 Pulse Ox 96 10/08/23 08:10 O2 Del Method Room Air 10/08/23 08:10 Discharge Plan Discharge Patient Disposition: Home Condition: Stable Prescriptions: New levofloxacin 750 mg tablet 750 mg PO Q48H 7 Days Qty: 4 0RF Continued citalopram 20 mg tablet 20 mg PO DAILY allopurinol 100 mg tablet 100 mg PO DAILY Xarelto 20 mg tablet 20 mg PO DAILY terazosin 1 mg capsule 1 mg PO BEDTIME amiodarone 200 mg tablet 200 mg PO DAILY Qty: 90 1RF aspirin 81 mg Tablet,Delayed Release (Dr/Ec) 81 mg PO DAILY omeprazole 40 mg capsule,delayed release(DR/EC) 40 mg PO DAILY potassium chloride 20 mEq tablet extended release 20 meq PO DAILY insulin lispro [Humalog U-100 Insulin] 100 unit/mL Solution See Rx Instructions .ROUTE .COMPLEX Qty: 10 0RF Rx Instructions: Glucose: 141-180 - 6 units 181-220 - 8 221-260 - 10 261-300 - 12 301-350 - 14 351-400 - 16 >400 - 18 units midodrine 5 mg Tablet 5 mg PO TID Qty: 90 0RF atorvastatin 80 mg tablet 40 mg PO QPM Qty: 1 0RF ergocalciferol (vitamin D2) 1,250 mcg (50,000 unit) capsule 50,000 unit PO Q7D Rx Instructions: on Friday Jardiance 25 mg Tablet 25 mg PO QAM bumetanide 1 mg Tablet 1 mg PO DAILY Qty: 90 0RF Lantus U-100 Insulin 100 unit/mL solution 25 unit SUBCUT BID polyethylene glycol 3350 17 gram powder in packet 17 g PO BID PRN (Reason: Constipation) Discontinued ciprofloxacin HCl 500 mg tablet 500 mg PO BID 7 Days Qty: 14 0RF metronidazole 500 mg tablet 500 mg PO Q8H 7 Days Qty: 21 0RF Discharge Orders: Discharge Order (Routine); Ordered 10/08/23 Ordered By: Mayra Piña Referrals: Rochelle Rodriges MD [Primary Care Provider] - 4-7 days Patient Instructions: Levofloxacin (By mouth) (Levaquin, Levaquin Leva-ronda), Pneumonia (GEN), Opioid Safety Discharge Attestations Time Spent in Discharge Care*: greater than 30 min Quality Metrics Clinical Quality Measures [ No reported AMI, CVA or VTE this stay] Coding Level of Care Code Acute Code for [facility] Diagnoses Cardiomyopathy I42.9 Cardiomyopathy type: unspecified Secondary nonischemic congestive cardiomyopathy I42.0 Low output heart failure I50.9 Paroxysmal atrial fibrillation I48.0 Atrial fibrillation type: paroxysmal DVT (deep venous thrombosis) I82.409 Type 2 diabetes mellitus with other circulatory complication, with long-term current use of insulin E11.59; Z79.4 Diabetes mellitus complication detail: with other circulatory complications Diabetes mellitus complication status: with circulatory complication Diabetes mellitus ferry terminal agent insulin use: with long-term use Diabetes mellitus type: type 2 Chronic kidney disease N18.9 Pneumonia J18.9
[2023-10-08] MEDS: insulin lispro 100 unit/1 mL SUBCUT (08:45)
[2023-10-08] MEDS: sennosides-docusate Tablet 1 TAB PO (08:46)
[2023-10-08] MEDS: doxycycline 100 mg Tablet PO (08:46)
--- NOTE | 2023-10-08 11:00 | PC.NURSE ---
Discussed discharge follow up appointments, new medications and discontinued medications. Educated on medications to take all antibiotics until gone. Spouse and patient verbalized understanding.
[2023-10-08 11:02] VITALS: BP 123/98; PULSE 56; RESP 16; TEMP 36.6; O2SAT 97
[2023-10-08 14:05] LABS: Methicillin-Resist S.aureu PCR NOT DETECTED (NOT DETECTED)
== END 2023-10-08 10:40 | disposition home or self-care (01) ==
LOC: ER 12:28 → MEDSURG 13:54
PROVIDERS: Admitting Provider Internal Medicine; Emergency Provider Emergency Medicine; PCP Internal Medicine; Visit Provider Internal Medicine
DX: I42.9 Cardiomyopathy, unspecified (principal); I42.0 Dilated cardiomyopathy; I50.9 Heart failure, unspecified; I48.0 Paroxysmal atrial fibrillation; I82.409 Acute embolism and thrombosis of unspecified deep veins of unspecified lower extremity; E11.59 Type 2 diabetes mellitus with other circulatory complications; Z79.4 Long term (current) use of insulin; E11.22 Type 2 diabetes mellitus with diabetic chronic kidney disease; N18.9 Chronic kidney disease, unspecified; J18.9 Pneumonia, unspecified organism; Z99.81 Dependence on supplemental oxygen; Z86.718 Personal history of other venous thrombosis and embolism; Z79.01 Long term (current) use of anticoagulants; G47.33 Obstructive sleep apnea (adult) (pediatric)
CPT/HCPCS: 36415; 36416; 71045; 80048; 80053; 81003; 81015; 82962; 83605; 83690; 83735; 83880; 85025; 87040; 87641; 93005; 96365; 96372; 96375; 99285; G0378; J0456; J0692; J0696; J1644; J1815; J7050

== ENCOUNTER 2023-10-11 18:04 | Observation (INO) | payer MEDICARE, MEDICAID, SELFPAY ==
[2023-10-11] VITALS (8 sets, daily range): BP systolic 113–188; BP diastolic 83–94; PULSE 89–113; RESP 16–23; TEMP 36.4–36.5; O2SAT 94–96; BMI 37.6
--- NOTE | 2023-10-11 18:57 | W.ED.MALEGU ---
Documented by User: SHAINA Walters 10/12/23 00:15 HPI - Male Genitourinary General: Chief complaint: Urogenital-Male Stated complaint: Cant Pee Time Seen by Provider: 10/11/23 18:44 Source: patient Mode of arrival: ambulatory Limitations: no limitations History of Present Illness: Patient is a 62-year-old male presenting to the emergency department complaining of urinary retention for the past 4 days. Extensive past medical history. States he has only been dribbling, and it rizvi when he does so. No blood noted. Not reporting any abdominal pain at this time, however states he really feels that he has to urinate. Among his past medical history, he is noted to be diabetic with a history of chronic kidney disease. No fever, chest pain, shortness of breath, or other symptoms. MD Complaint: other (Urinary retention) Onset (ago): day(s) Duration: constant Severity: severe Associated symptoms: Reports dysuria; Deny hematuria, nausea or vomiting Related Data Home Medications Medication Instructions Recorded Confirmed allopurinol 100 mg tablet 100 mg PO DAILY 06/30/19 10/07/23 citalopram 20 mg tablet 20 mg PO DAILY 06/30/19 10/07/23 rivaroxaban 20 mg tablet (Xarelto) 20 mg PO DAILY 06/30/19 10/07/23 terazosin 1 mg capsule 1 mg PO BEDTIME 06/30/19 10/07/23 ergocalciferol (vitamin D2) 1,250 50,000 unit PO Q7D 03/02/23 10/07/23 mcg (50,000 unit) capsule empagliflozin 25 mg tablet 25 mg PO QAM 04/29/23 10/07/23 (Jardiance) aspirin 81 mg tablet,delayed 81 mg PO DAILY 08/29/23 10/07/23 release omeprazole 40 mg capsule,delayed 40 mg PO DAILY 09/18/23 10/07/23 release potassium chloride 20 mEq 20 meq PO DAILY 09/18/23 10/07/23 tablet,extended release insulin glargine 100 unit/mL 25 unit SUBCUT BID 10/07/23 10/07/23 subcutaneous solution (Lantus U-100 Insulin) polyethylene glycol 3350 17 gram 17 g PO BID PRN Constipation 10/07/23 10/07/23 oral powder packet Previous Rx's Medication Instructions Recorded amiodarone 200 mg tablet 200 mg PO DAILY #90 tabs 03/14/23 atorvastatin 80 mg tablet 40 mg (1/2 x 80 mg) PO QPM #1 tab 09/26/23 insulin lispro 100 unit/mL See Rx Instructions .Route 09/26/23 subcutaneous solution (Humalog .COMPLEX #10 mL U-100 Insulin) midodrine 5 mg tablet 5 mg PO TID #90 tabs 09/26/23 bumetanide 1 mg tablet 1 mg PO DAILY #90 tabs 10/03/23 levofloxacin 750 mg tablet 750 mg PO Q48H 7 days #4 tabs 10/08/23 Allergies Allergy/AdvReac Type Severity Reaction Status Date / Time No Known Allergies Allergy Verified 10/11/23 18:25 Review of Systems General: Reports: 10 or more systems reviewed and unremarkable except in HPI and below Const: Denies: fever(s), chills, change in appetite, change in weight or diaphoresis ENMT: Denies: throat pain or hoarseness Card: Denies: chest pain, palpitations or lightheadedness Resp: Denies: dyspnea, productive cough or wheezing GI: Denies: abdominal pain, nausea, vomiting, diarrhea, constipation, bloating, change in stool character or hematochezia : Reports: difficulty urinating, dysuria, urinary dribbling, difficulty starting urination and oliguria; Denies: flank pain or hematuria Musc: Denies: neck pain or back pain Skin/Breast: Denies: rash or new lesions Neuro: Denies: headache(s) or dizziness PFSH ED PFSH: Medical History (Updated 10/12/23 @ 00:00 by Rosendo Olmos MD) Pneumonia Goals of care, counseling/discussion Transaminitis Chronic renal failure AICD discharge Bronchitis Low output heart failure Secondary nonischemic congestive cardiomyopathy CHF exacerbation Cardiomyopathy Nonobstructive per angiogram 03/19, EF 10-15 % on echo in 09/16 Arthritis Chronic kidney disease Atrial fibrillation Anticoagulation adequate with anticoagulant therapy Dyslipidemia NAKUL (obstructive sleep apnea) CHF (congestive heart failure) Diabetes DVT (deep venous thrombosis) Cardiomyopathy Surgical History (Updated 10/12/23 @ 00:00 by Rosendo Olmos MD) AICD (automatic cardioverter/defibrillator) present S/P knee replacement S/P ICD (internal cardiac defibrillator) procedure Family History Father Stroke CAD (coronary artery disease) Sister Stroke Brother Stroke Other Hypertension Social History Smoking and tobacco/nicotine status: never used tobacco/nicotine Alcohol intake: never Substance/Drug Use: never Physical Exam Const: COMMON NORMALS: patient oriented x3, no limitations, alert and well nourished GENERAL APPEARANCE: cooperative NUTRITIONAL APPEARANCE: obese centrally obese ORIENTATION/CONSCIOUSNESS: Yes awake OTHER: Appears uncomfortable, slight jaundice noted HENMT: COMMON NORMALS: normocephalic, atraumatic, hearing grossly normal bilaterally, external ears normal, Normal external nose present, Normal nasal mucous membranes and turbinates present and moist oral mucous membranes HEAD & SCALP: normocephalic and atraumatic NOSE: Normal external nose present and Normal nasal mucous membranes and turbinates present EXTERNAL EAR: Yes external ears normal Eye: COMMON NORMALS: Equal, round and reactive pupils present, EOMs intact bilaterally, conjunctivae normal and normal visual nair by confrontation CONJUNCTIVA: Yes conjunctivae normal PUPIL: Yes Equal, round and reactive pupils present Neck/C-Spine: COMMON NORMALS: full ROM, supple, no meningeal signs and no JVD Resp: COMMON NORMALS: normal respiratory effort, No retractions, No use of accessory muscles and clear to auscultation bilaterally AUSCULTATION: clear to auscultation bilaterally, no crackles, no rales, no rhonchi and no wheezes Cardio: COMMON NORMALS: no JVD, regular rate, regular rhythm, S1 normal heart sound present, S2 normal heart sound present, No gallops present (Cardio), No clicks present (Cardio), No murmurs present (Cardio), No rub (Cardio) and Peripheral pulses 2+ throughout RATE: regular rate RHYTHM: regular rhythm HEART SOUNDS: S1 normal heart sound present and S2 normal heart sound present PERIPHERAL PULSES: Peripheral pulses 2+ throughout GI: COMMON NORMALS: non-tender, No hepatosplenomegaly present and no masses INSPECTION: Yes abdominal distension and Yes central obesity AUSCULTATION: Yes normoactive bowel sounds PALPATION: Yes Firmness to palpation present (GI), No Guarding due to palpation present (GI) and Yes No hepatosplenomegaly present RECTAL EXAM: Yes deferred : COMMON NORMALS: Yes no CVA tenderness BLADDER/KIDNEY EXAM: Yes no CVA tenderness Back/Pelvis: COMMON NORMALS: no CVA tenderness Extremity: COMMON NORMALS: normal to inspection and full ROM Neuro: COMMON NORMALS: patient oriented x3, moves all extremities, no focal motor deficits and no sensory deficits noted SENSORIUM/ORIENTATION: Yes alert MENINGEAL SIGNS: Yes no meningeal signs Psych: COMMON NORMALS: mental status grossly normal, cooperative and speech normal SPEECH: Yes normal speech Skin: COMMON NORMALS: no rashes or lesions noted GENERAL SKIN EXAM: no rashes or lesions noted Course Vital Signs: Vital signs: Vital Signs Temperature 97.8 F 10/12/23 01:47 Pulse Rate 94 10/12/23 01:47 Respiratory Rate 20 H 10/12/23 01:47 Blood Pressure 125/85 10/12/23 01:47 Pulse Oximetry 90 10/12/23 01:47 Oxygen Delivery Me thod Room Air 10/12/23 01:47 MDM - Male Medical Decision Making Patient presented due to urinary retention over the past few days. History of similar in the past. On arrival his vitals unremarkable. Exam did find his abdomen to be distended, did appear in distress due to his pelvic pain. However when straight cath was placed he only drained 10 mL of urine, and still reported relief of symptoms. Basic labs were obtained that found him to have consistent labs of chronic kidney disease, nothing seems to be out of the ordinary with the rest of his labs. A CT abdomen without contrast was obtained, and did show quite a bit of peritoneal fluid, and was thought by radiology that he could potentially be spilling protein into his peritoneal cavity, as on urinalysis he did have signs of infection and 3+ protein. I spoke with hospitalist, Dr. Olmos, and we agreed to have shared decision making with the patient and family in regards to whether he follow-up as an outpatient for diagnostic paracentesis, or stay in the hospital until Friday. Patient is adamant, along with family, that he be admitted because he is scared that when he goes home he will not be able to pee again and will be in significant amount of pain. Because of this, Dr. Olmos kindly accepts the patient for observation, and plan is for patient to undergo a diagnostic paracentesis via ultrasound guidance on Friday. This case was discussed in thorough detail with Dr. Shen, supervising ED physician, who agrees at this time Lab Data 10/11/23 19:28 10/11/23 19:28 Radiology Impressions Abdomen/Pelvis CT 10/11/23 20:38 IMPRESSION: 1. Tsoy-qb-kahdvmuz loculated right pleural fluid collection. 2. Mild bibasilar pneumonia, djfsa-nmoevjh-llxv-left. 3. Borderline to mild cardiomegaly. 4. Mathew balloon catheter in the urinary bladder. 5. Mild four-quadrant ascites versus other peritoneal fluid. 6. The peritoneal fluid measures 24-36 Hounsfield units suggesting hemoperitoneum versus vicarious excretion of iodine from recent imaging study versus other etiology. 7. Yamile mesentery sign with central mesenteric fat edema and extensive differential diagnosis including but not limited to pancreatitis, portal hypertension, infectious process, autoimmune/allergic process or neoplastic process. 8. Mild anasarca consistent with right heart failure versus hypoproteinemia versus renal failure. 9. Uniform urinary bladder wall thickening consistent with cystitis versus chronic outlet obstruction. ADDENDUM: 10/11/23 8444 History: No recent x-ray studies or cardiology studies with iodinated IV contrast. Possible urinary tract infection with white blood cells in the urine. Normal liver function tests. No leukocytosis or anemia on CBC. Discussion: The right pleural fluid collection measures 20 Hounsfield units. There could be high protein levels in the pleural fluid and peritoneal fluid creating increased density. THIS REPORT CONTAINS FINDINGS THAT MAY BE CRITICAL TO PATIENT CARE. The findings were verbally communicated via telephone conference with RANDALL CARSON at 10:51 PM CDT on 10/11/2023. The findings were acknowledged and understood. Laboratory Results WBC 11.83 10^3/uL (3.29-11.43) H 10/11/23 19: RBC 4.87 10^6/uL (3.85-5.65) 10/11/23 19: Hgb 12.10 g/dL (11.27-16.99) 10/11/23 19: Hct 40.8 % (37-53) 10/11/23 19: MCV 83.8 fl (82-101) 10/11/23 19: MCH 24.8 pg (27-33) L 10/11/23 19: MCHC 29.7 g/dL (30-55) L 10/11/23 19: RDW 20.0 % (12.1-15.1) H 10/11/23 19: Plt Count 315 10^3/cmm (157-399) 10/11/23 19: MPV 9.6 fL (7.4-10.4) 10/11/23 19: Neut % (Auto) 80.3 % 10/11/23 19: Lymph % (Auto) 10.7 % 10/11/23 19: [place] % (Auto) 7.4 % 10/11/23 19: Eos % (Auto) 0.6 % 10/11/23 19: Baso % (Auto) 0.4 % 10/11/23: Neut # (Auto) 9.50 10^3/uL (1.8-7.7) H 10/11/23 19: Lymph # (Auto) 1.3 10^3/uL (0.8-4.8) 10/11/23: [place] # (Auto) 0.9 10^3/uL (0.2-0.9) 10/11/23 19: Eos # (Auto) 0.1 10^3/uL (0.0-0.8) 10/11/23 19: Baso # (Auto) 0.1 10^3/uL (0.0-0.1) 10/11/23: Nucleated RBC % (auto) 0.2 % 10/11/23: Nucleated RBCs # 0.0 /100WBC 10/11/23 19: Sodium 130 mmol/L (136-145) L 10/11/23 19: Potassium 5.1 mmol/L (3.5-5.1) 10/11/23 19: Chloride 97 mmol/L (98-107) L 10/11/23 19: Carbon Dioxide 20 mmol/L (22-29) L 10/11/23 19: Anion Gap 18.1 (5-19) 10/11/23 19: BUN 40 mg/dL (8-23) H 10/11/23 19: Creatinine 2.1 mg/dL (0.7-1.2) H 10/11/23 19: GFR Calculation 32.1 mL/min (90-130) L 10/11/23 19: Glucose 306 mg/dL (65-115) H 10/11/23 19: Calculated Osmolality 291 mOsm/kg (285-295) 10/11/23 19: Calcium 9.2 mg/dL (8.5-10.5) 10/11/23 19: Total Bilirubin 1.0 mg/dL (0.15-1.2) 10/11/23 19: AST 39 U/L (0-40) 10/11/23 19: ALT 30 U/L (0-41) 10/11/23 19: Alkaline Phosphatase 290 U/L (40-130) H 10/11/23 19: Total Protein 6.7 g/dL (6.6-8.7) 10/11/23 19: Albumin 3.2 g/dL (3.5-5.2) L 10/11/23: Globulin 3.5 g/dL (1.3-4.6) 10/11/23 19: Urine Color Yellow (Yellow) 10/11/23 20:00 Urine Appearance Cloudy (CLEAR) A 10/11/23 20:00 Urine pH 5.5 (5-7) 10/11/23 20:00 Ur Specific [place] 1.019 (1.005-1.030) 10/11/23 20:00 Urine Protein 3+ (Negative) A 10/11/23 20:00 Urine Glucose (UA) 3+ (Normal) H 10/11/23 20:00 Urine Ketones Negative (Negative) 10/11/23 20:00 Urine Blood 2+ (Negative) A 10/11/23 20:00 Urine Nitrate Negative (Negative) 10/11/23 20:00 Urine Bilirubin Negative (Negative) 10/11/23 20:00 Urine Urobilinogen 1.0 mg/dL (Negative) 10/11/23 20:00 Ur Leukocyte Esterase Trace (Negative) A 10/11/23 20:00 Urine RBC 21-50 /hpf (0-2) H 10/11/23 20:00 Urine WBC 51-100 /hpf (0-5) H 10/11/23 20:00 Ur Squamous Epith Cells 11-20 /hpf (0-5) 10/11/23 20:00 Amorphous Sediment Not Reportable 10/11/23 20:00 Urine Bacteria Trace /hpf (NONE) 10/11/23 20:00 Hyaline Casts 16.53 /lpf 10/11/23 20:00 Urine Yeast 2+ /hpf H 10/11/23 20:00 All radiology interpretation(s) finalized by discharge Discharge Plan Discharge Patient Disposition: Placed in Observation Admit Provider: Rosendo Olmos Clinical Impression: Cystitis Chronic kidney disease (CKD) Qualifiers: Chronic kidney disease stage: unspecified stage Qualified Code(s): N18.9 - Chronic kidney disease, unspecified Ascites Qualifiers: Ascites type: other type Qualified Code(s): R18.8 - Other ascites Coding Level of Care Code ED Optical Manager for Chg Fwd Documented by User: Manish Shen DO 10/12/23 01:58 HPI - Male Genitourinary General: Chief complaint: Urogenital-Male Stated complaint: Cant Pee Time Seen by Provider: 10/11/23 18:44 Related Data Home Medications Medication Instructions Recorded Confirmed allopurinol 100 mg tablet 100 mg PO DAILY 06/30/19 10/07/23 citalopram 20 mg tablet 20 mg PO DAILY 06/30/19 10/07/23 rivaroxaban 20 mg tablet (Xarelto) 20 mg PO DAILY 06/30/19 10/07/23 terazosin 1 mg capsule 1 mg PO BEDTIME 06/30/19 10/07/23 ergocalciferol (vitamin D2) 1,250 50,000 unit PO Q7D 03/02/23 10/07/23 mcg (50,000 unit) capsule empagliflozin 25 mg tablet 25 mg PO QAM 04/29/23 10/07/23 (Jardiance) aspirin 81 mg tablet,delayed 81 mg PO DAILY 08/29/23 10/07/23 release omeprazole 40 mg capsule,delayed 40 mg PO DAILY 09/18/23 10/07/23 release potassium chloride 20 mEq 20 meq PO DAILY 09/18/23 10/07/23 tablet,extended release insulin glargine 100 unit/mL 25 unit SUBCUT BID 10/07/23 10/07/23 subcutaneous solution (Lantus U-100 Insulin) polyethylene glycol 3350 17 gram 17 g PO BID PRN Constipation 10/07/23 10/07/23 oral powder packet Previous Rx's Medication Instructions Recorded amiodarone 200 mg tablet 200 mg PO DAILY #90 tabs 03/14/23 atorvastatin 80 mg tablet 40 mg (1/2 x 80 mg) PO QPM #1 tab 09/26/23 insulin lispro 100 unit/mL See Rx Instructions .Route 09/26/23 subcutaneous solution (Humalog .COMPLEX #10 mL U-100 Insulin) midodrine 5 mg tablet 5 mg PO TID #90 tabs 09/26/23 bumetanide 1 mg tablet 1 mg PO DAILY #90 tabs 10/03/23 levofloxacin 750 mg tablet 750 mg PO Q48H 7 days #4 tabs 10/08/23 Allergies Allergy/AdvReac Type Severity Reaction Status Date / Time No Known Allergies Allergy Verified 10/11/23 18:25 [facility] ED [facility]: Medical History (Updated 10/12/23 @ 00:00 by Rosendo Olmos MD) Pneumonia Goals of care, counseling/discussion Transaminitis Chronic renal failure AICD discharge Bronchitis Low output heart failure Secondary nonischemic congestive cardiomyopathy CHF exacerbation Cardiomyopathy Nonobstructive per angiogram 03/19, EF 10-15 % on echo in 09/16 Arthritis Chronic kidney disease Atrial fibrillation Anticoagulation adequate with anticoagulant therapy Dyslipidemia NAKUL (obstructive sleep apnea) CHF (congestive heart failure) Diabetes DVT (deep venous thrombosis) Cardiomyopathy Surgical History (Updated 10/12/23 @ 00:00 by Rosendo Olmos MD) AICD (automatic cardioverter/defibrillator) present S/P knee replacement S/P ICD (internal cardiac defibrillator) procedure Family History Father Stroke CAD (coronary artery disease) Sister Stroke Brother Stroke Other Hypertension Social History Smoking and tobacco/nicotine status: never used tobacco/nicotine Alcohol intake: never Substance/Drug Use: never Course Vital Signs: Vital signs: Vital Signs Temperature 97.8 F 10/12/23 01:47 Pulse Rate 94 10/12/23 01:47 Respiratory Rate 20 H 10/12/23 01:47 Blood Pressure 125/85 10/12/23 01:47 Pulse Oximetry 90 10/12/23 01:47 Oxygen Delivery Me thod Room Air 10/12/23 01:47 MDM - Male Medical Decision Making Patient presented due to urinary retention over the past few days. History of similar in the past. On arrival his vitals unremarkable. Exam did find his abdomen to be distended, did appear in distress due to his pelvic pain. However when straight cath was placed he only drained 10 mL of urine, and still reported relief of symptoms. Basic labs were obtained that found him to have consistent labs of chronic kidney disease, nothing seems to be out of the ordinary with the rest of his labs. A CT abdomen without contrast was obtained, and did show quite a bit of peritoneal fluid, and was thought by radiology that he could potentially be spilling protein into his peritoneal cavity, as on urinalysis he did have signs of infection and 3+ protein. I spoke with hospitalist, Dr. Olmos, and we agreed to have shared decision making with the patient and family in regards to whether he follow-up as an outpatient for diagnostic paracentesis, or stay in the hospital until Friday. Patient is adamant, along with family, that he be admitted because he is scared that when he goes home he will not be able to pee again and will be in significant amount of pain. Because of this, Dr. Olmos kindly accepts the patient for observation, and plan is for patient to undergo a diagnostic paracentesis via ultrasound guidance on Friday. This case was discussed in thorough detail with Dr. Shen, supervising ED physician, who agrees at this time This patient was originally seen by Mr. Jeffrey PA-C.? I agree with his history, evaluation, and treatment. Lab Data 10/11/23 19:28 10/11/23 19:28 Radiology Impressions Abdomen/Pelvis CT 10/11/23 20:38 IMPRESSION: 1. Oazn-vh-ufyhwwei loculated right pleural fluid collection. 2. Mild bibasilar pneumonia, nmuch-cinpymh-phmj-left. 3. Borderline to mild cardiomegaly. 4. Mathew balloon catheter in the urinary bladder. 5. Mild four-quadrant ascites versus other peritoneal fluid. 6. The peritoneal fluid measures 24-36 Hounsfield units suggesting hemoperitoneum versus vicarious excretion of iodine from recent imaging study versus other etiology. 7. Yamile mesentery sign with central mesenteric fat edema and extensive differential diagnosis including but not limited to pancreatitis, portal hypertension, infectious process, autoimmune/allergic process or neoplastic process. 8. Mild anasarca consistent with right heart failure versus hypoproteinemia versus renal failure. 9. Uniform urinary bladder wall thickening consistent with cystitis versus chronic outlet obstruction. ADDENDUM: 10/11/23 0192 History: No recent x-ray studies or cardiology studies with iodinated IV contrast. Possible urinary tract infection with white blood cells in the urine. Normal liver function tests. No leukocytosis or anemia on CBC. Discussion: The right pleural fluid collection measures 20 Hounsfield units. There could be high protein levels in the pleural fluid and peritoneal fluid creating increased density. THIS REPORT CONTAINS FINDINGS THAT MAY BE CRITICAL TO PATIENT CARE. The findings were verbally communicated via telephone conference with RANDALL CARSON at 10:51 PM CDT on 10/11/2023. The findings were acknowledged and understood. Laboratory Results WBC 11.83 10^3/uL (3.29-11.43) H 10/11/23 19:28 RBC 4.87 10^6/uL (3.85-5.65) 10/11/23 19:28 Hgb 12.10 g/dL (11.27-16.99) 10/11/23 19:28 Hct 40.8 % (37-53) 10/11/23 19:28 MCV 83.8 fl (82-101) 10/11/23 19:28 MCH 24.8 pg (27-33) L 10/11/23 19:28 MCHC 29.7 g/dL (30-55) L 10/11/23 19:28 RDW 20.0 % (12.1-15.1) H 10/11/23 19:28 Plt Count 315 10^3/cmm (157-399) 10/11/23 19:28 MPV 9.6 fL (7.4-10.4) 10/11/23 19:28 Neut % (Auto) 80.3 % 10/11/23 19:28 Lymph % (Auto) 10.7 % 08/17/24 19:28 [place] % (Auto) 7.4 % 10/11/23 19:28 Eos % (Auto) 0.6 % 10/11/23 19: Baso % (Auto) 0.4 % 10/11/23 19: Neut # (Auto) 9.50 10^3/uL (1.8-7.7) H 10/11/23 19: Lymph # (Auto) 1.3 10^3/uL (0.8-4.8) 10/11/23 19: [place] # (Auto) 0.9 10^3/uL (0.2-0.9) 10/11/23 19: Eos # (Auto) 0.1 10^3/uL (0.0-0.8) 10/11/23 19: Baso # (Auto) 0.1 10^3/uL (0.0-0.1) 10/11/23 19: Nucleated RBC % (auto) 0.2 % 10/11/23 19: Nucleated RBCs # 0.0 /100WBC 10/11/23 19:28 Sodium 130 mmol/L (136-145) L 10/11/23 19:28 Potassium 5.1 mmol/L (3.5-5.1) 10/11/23 19: Chloride 97 mmol/L (98-107) L 10/11/23 19:28 Carbon Dioxide 20 mmol/L (22-29) L 10/11/23 19:28 Anion Gap 18.1 (5-19) 10/11/23 19:28 BUN 40 mg/dL (8-23) H 10/11/23 19:28 Creatinine 2.1 mg/dL (0.7-1.2) H 10/11/23 19:28 GFR Calculation 32.1 mL/min (90-130) L 10/11/23 19:28 Glucose 306 mg/dL (65-115) H 10/11/23 19:28 Calculated Osmolality 291 mOsm/kg (285-295) 10/11/23 19:28 Calcium 9.2 mg/dL (8.5-10.5) 10/11/23 19:28 Total Bilirubin 1.0 mg/dL (0.15-1.2) 10/11/23 19:28 AST 39 U/L (0-40) 10/11/23 19:28 ALT 30 U/L (0-41) 10/11/23 19:28 Alkaline Phosphatase 290 U/L (40-130) H 10/11/23 19:28 Total Protein 6.7 g/dL (6.6-8.7) 10/11/23 19: Albumin 3.2 g/dL (3.5-5.2) L 10/11/23 19: Globulin 3.5 g/dL (1.3-4.6) 10/11/23 19:28 Urine Color Yellow (Yellow) 10/11/23 20:00 Urine Appearance Cloudy (CLEAR) A 10/11/23 20:00 Urine pH 5.5 (5-7) 10/11/23 20:00 Ur Specific [place] 1.019 (1.005-1.030) 10/11/23 20:00 Urine Protein 3+ (Negative) A 10/11/23 20:00 Urine Glucose (UA) 3+ (Normal) H 10/11/23 20:00 Urine Ketones Negative (Negative) 10/11/23 20:00 Urine Blood 2+ (Negative) A 10/11/23 20:00 Urine Nitrate Negative (Negative) 10/11/23 20:00 Urine Bilirubin Negative (Negative) 10/11/23 20:00 Urine Urobilinogen 1.0 mg/dL (Negative) 10/11/23 20:00 Ur Leukocyte Esterase Trace (Negative) A 10/11/23 20:00 Urine RBC 21-50 /hpf (0-2) H 10/11/23 20:00 Urine WBC 51-100 /hpf (0-5) H 10/11/23 20:00 Ur Squamous Epith Cells 11-20 /hpf (0-5) 10/11/23 20:00 Amorphous Sediment Not Reportable 10/11/23 20:00 Urine Bacteria Trace /hpf (NONE) 10/11/23 20:00 Hyaline Casts 16.53 /lpf 10/11/23 20:00 Urine Yeast 2+ /hpf H 10/11/23 20:00 Discharge Plan Discharge Patient Disposition: Placed in Observation Admit Provider: Rosendo Olmos Clinical Impression: Cystitis Chronic kidney disease (CKD) Qualifiers: Chronic kidney disease stage: unspecified stage Qualified Code(s): N18.9 - Chronic kidney disease, unspecified Ascites Qualifiers: Ascites type: other type Qualified Code(s): R18.8 - Other ascites Coding Level of Care Code ED Optical Manager for Zechariah Vicente
[2023-10-11 19:34] LABS: Basophils # 0.1 10^3/uL (0.0-0.1); Basophils % 0.4 %; Eosinophils # 0.1 10^3/uL (0.0-0.8); Eosinophils % 0.6 %; Hematocrit 40.8 % (37-53); Lymphocytes # 1.3 10^3/uL (0.8-4.8); Lymphocytes % 10.7 %; Mean Corpuscular HGB Conc 29.7 g/dL (30-55); Mean Corpuscular Hemoglobin 24.8 pg (27-33); Mean Corpuscular Volume 83.8 fl (82-101); Mean Platelet Volume 9.6 fL (7.4-10.4); Monocytes # 0.9 10^3/uL (0.2-0.9); Monocytes % 7.4 %; Neutrophils % 80.3 %; Nucleated Red Blood Cells % 0.2 %; Platelet Count 315 10^3/cmm (157-399); Red Blood Count 4.87 10^6/uL (3.85-5.65); White Blood Count 11.83 10^3/uL (3.29-11.43)
[2023-10-11 19:51] LABS: Alanine Aminotransferase 30 U/L (0-41); Albumin Level 3.2 g/dL (3.5-5.2); Alkaline Phosphatase 290 U/L (40-130); Anion Gap 18.1 (5-19); Aspartate Amino Transferase 39 U/L (0-40); Blood Urea Nitrogen 40 mg/dL (8-23); Calcium 9.2 mg/dL (8.5-10.5); Carbon Dioxide 20 mmol/L (22-29); Chloride 97 mmol/L (98-107); Creatinine Clr Calc Pharmacy 47.9559; Globulin 3.5 g/dL (1.3-4.6); Glomerular Filtration Rate 32.1 mL/min (90-130); Glucose 306 mg/dL (65-115); Osmolality Calculated 291 mOsm/kg (285-295); Potassium 5.1 mmol/L (3.5-5.1); Sodium 130 mmol/L (136-145); Total Protein 6.7 g/dL (6.6-8.7)
[2023-10-11 20:10] LABS: Charge for UA Resulting for Rev
[2023-10-11 20:22] LABS: Bacteria Urine Trace /hpf; Hyaline Casts Urine 16.53 /lpf; RBC Urine 21-50 /hpf (0-2); WBC Urine 51-100 /hpf (0-5)
--- NOTE | 2023-10-11 20:38 | CTR_ITS ---
PROCEDURE INFORMATION: Exam: CT Abdomen And Pelvis Without Contrast Exam date and time: 10/11/2023 9:07 PM Age: 62 years old Clinical indication: Bloating and other: Hematuria. Low urinary output from de jesus; Prior surgery; Surgery date: 6+ months; Surgery type: Pacer; Patient HX: Abd distention with hematuria and negligible urinary output from de jesus. History of chf and ckd. ; Additional info: Abd distention/urinary retention TECHNIQUE: Imaging protocol: Computed tomography of the abdomen and pelvis without contrast. Radiation optimization: All CT scans at this facility use at least one of these dose optimization techniques: automated exposure control; mA and/or kV adjustment per patient size (includes targeted exams where dose is matched to clinical indication); or iterative reconstruction. COMPARISON: CT abdomen con [id number] 09/18/2023 4:32 AM RADIATION DOSE METRICS: Total DLP (mGy-cm): 1763.29 FINDINGS: Lungs: Mild bibasilar pneumonia, [id number]-ecmjrju-cydo-left. Pleural spaces: Ttyz-eu-vmlsesur loculated right pleural fluid collection. Heart: Borderline to mild cardiomegaly. Mild anasarca consistent with right heart failure versus hypoproteinemia versus renal failure. Liver: Normal. No mass. Gallbladder and biliary ducts: Normal. No calcified stones. No ductal dilation. Pancreas: Normal. No ductal dilation. Spleen: Calcified splenic granulomas. Adrenal glands: Normal. No mass. Kidneys and ureters: Normal. No hydronephrosis. Stomach and bowel: Unremarkable. No obstruction. No mucosal thickening. Appendix: No evidence of appendicitis. Intraperitoneal space: Mild four-quadrant ascites versus other peritoneal fluid. The peritoneal fluid measures 24-36 Hounsfield units suggesting hemoperitoneum versus vicarious excretion of iodine from recent imaging study versus other etiology. Vasculature: Unremarkable. No abdominal aortic aneurysm. Lymph nodes: Unremarkable. No enlarged lymph nodes. Urinary bladder: De Jesus balloon catheter in the urinary bladder. Uniform urinary bladder wall thickening consistent with cystitis versus chronic outlet obstruction. Reproductive: Unremarkable as visualized. Bones/joints: Severe thoracic spondylosis. Moderate multilevel spine degenerative changes including degenerative disc disease, spondylosis and facet degenerative changes. Soft tissues: Examination is limited by artifact from one or both arms by the patient's side. Examination is limited by artifact from one or both arms by the patient's side. Yamile mesentery sign with central mesenteric fat edema and extensive differential diagnosis including but not limited to pancreatitis, portal hypertension, infectious process, autoimmune/allergic process or neoplastic process. CT/CT kidney stone [id number] IMPRESSION: 1. Lwqa-ya-uhcxhznp loculated right pleural fluid collection. 2. Mild bibasilar pneumonia, jpdlo-kpztbvg-aqfk-left. 3. Borderline to mild cardiomegaly. 4. De Jesus balloon catheter in the urinary bladder. 5. Mild four-quadrant ascites versus other peritoneal fluid. 6. The peritoneal fluid measures 24-36 Hounsfield units suggesting hemoperitoneum versus vicarious excretion of iodine from recent imaging study versus other etiology. 7. Yamile mesentery sign with central mesenteric fat edema and extensive differential diagnosis including but not limited to pancreatitis, portal hypertension, infectious process, autoimmune/allergic process or neoplastic process. 8. Mild anasarca consistent with right heart failure versus hypoproteinemia versus renal failure. 9. Uniform urinary bladder wall thickening consistent with cystitis versus chronic outlet obstruction.
[2023-10-11] MEDS: morphine 4 mg/mL SDV 1 mL IVP (20:59)
[2023-10-11 21:08] LABS: Bilirubin Urine Negative (Negative); Blood Urine 2+ (Negative); Glucose Urine UA 3+ (Normal); Ketones Urine Negative (Negative); Leukocyte Esterase Urine Trace (Negative); Nitrate Urine Negative (Negative); Protein Urine 3+ (Negative); Specific Gravity, Urine 1.019 (1.005-1.030); Urine Appearance Cloudy (CLEAR); Urine Color Yellow (Yellow); pH Urine 5.5 (5-7)
[2023-10-11 21:15] LABS: Add Urine Culture? Yes
[2023-10-11 21:22] LABS: UA Slide Review UA Slide Review Perf
--- NOTE | 2023-10-11 23:12 | P.HP_ITS ---
Providers/Chief Complaint 2 Primary Care Provider: Rochelle Rodriges MD Chief Complaint: Jonas Molina History of Present Illness Eliseo Reyes is a 62 year old male with a past medical history significant for heart failure with reduced ejection fraction of 10 to 15%, nonischemic cardiomyopathy status post ICD/pacemaker, atrial fibrillation, chronic kidney disease, type 2 diabetes mellitus, multiple other comorbidities who presents to the emergency department with diffuse abdominal distention and pain. Exertion worsens symptoms. Rest improves symptoms. Upon presentation, patient stated that his urinary bladder was full and he was unable to urinate. He reports urinary frequency and dysuria. Reports prior history of urinary retention the symptoms seem similar. In the emergency department, urinary retention was considered and Mathew catheter was placed with very little urinary output. He was further worked up with CT imaging which revealed uniform bladder wall thickening consistent with cystitis versus chronic outlet obstruction. CT imaging also showed mild to moderate right sided loculated pleural effusion, mild bibasilar pneumonia right greater than left, cardiomegaly, ascites with abnormal Hounsfield units with initial read concerning for hemoperitoneum versus iodine however radiology added an addendum noting that Hounsfield units of 20 could actually be high-protein levels in the pleural fluid. Patient denies a history of requiring prior paracentesis. He has a known history of heart failure with reduced ejection fraction of 10 to 15%. He is on Bumex daily. For the pneumonia finding on CT scan patient states that he is currently on outpatient treatment for pneumonia. He was recently admitted and discharged on antibiotics. He states he has been compliant with his antibiotic treatment. He does endorse occasional cough. Review of Systems 2 Narrative: A complete review of systems was obtained and is negative except as stated in HPI. Medications/Allergies Home Medications Medication Instructions Recorded Confirmed Last Taken Type allopurinol 100 mg tablet 100 mg PO DAILY 06/30/19 10/07/23 10/07/23 History citalopram 20 mg tablet 20 mg PO DAILY 06/30/19 10/07/23 10/07/23 History rivaroxaban 20 mg tablet (Xarelto) 20 mg PO DAILY 06/30/19 10/07/23 10/07/23 History terazosin 1 mg capsule 1 mg PO BEDTIME 06/30/19 10/07/23 10/06/23 History ergocalciferol (vitamin D2) 1,250 50,000 unit PO Q7D 03/02/23 10/07/23 10/01/23 History mcg (50,000 unit) capsule amiodarone 200 mg tablet 200 mg PO DAILY #90 tabs 03/14/23 10/07/23 10/07/23 Rx empagliflozin 25 mg tablet 25 mg PO QAM 04/29/23 10/07/23 10/07/23 History (Jardiance) aspirin 81 mg tablet,delayed 81 mg PO DAILY 08/29/23 10/07/23 10/07/23 History release omeprazole 40 mg capsule,delayed 40 mg PO DAILY 09/18/23 10/07/23 10/07/23 History release potassium chloride 20 mEq 20 meq PO DAILY 09/18/23 10/07/23 10/07/23 History tablet,extended release atorvastatin 80 mg tablet 40 mg (1/2 x 80 mg) PO QPM #1 tab 09/26/23 10/07/23 10/06/23 Rx insulin lispro 100 unit/mL See Rx Instructions .Route 09/26/23 10/07/23 10/07/23 Rx subcutaneous solution (Humalog .COMPLEX #10 mL U-100 Insulin) midodrine 5 mg tablet 5 mg PO TID #90 tabs 09/26/23 10/07/23 10/07/23 Rx bumetanide 1 mg tablet 1 mg PO DAILY #90 tabs 10/03/23 10/07/23 10/07/23 Rx insulin glargine 100 unit/mL 25 unit SUBCUT BID 10/07/23 10/07/23 10/07/23 History subcutaneous solution (Lantus U-100 Insulin) polyethylene glycol 3350 17 gram 17 g PO BID PRN Constipation 10/07/23 10/07/23 10/04/23 History oral powder packet levofloxacin 750 mg tablet 750 mg PO Q48H 7 days #4 tabs 10/08/23 Unknown Rx Allergies Allergy/AdvReac Type Severity Reaction Status Date / Time No Known Allergies Allergy Verified 10/11/23 18:25 PFSH Acute 2 PFSH: Medical History (Updated 10/12/23 @ 00:00 by Rosendo Olmos MD) Pneumonia Goals of care, counseling/discussion Transaminitis Chronic renal failure AICD discharge Bronchitis Low output heart failure Secondary nonischemic congestive cardiomyopathy CHF exacerbation Cardiomyopathy Nonobstructive per angiogram 1/24, EF 10-15 % on echo in 09/16 Arthritis Chronic kidney disease Atrial fibrillation Anticoagulation adequate with anticoagulant therapy Dyslipidemia NAKUL (obstructive sleep apnea) CHF (congestive heart failure) Diabetes DVT (deep venous thrombosis) Cardiomyopathy Surgical History (Updated 10/12/23 @ 00:00 by Rosendo Olmos MD) AICD (automatic cardioverter/defibrillator) present S/P knee replacement S/P ICD (internal cardiac defibrillator) procedure Family History Father Stroke CAD (coronary artery disease) Sister Stroke Brother Stroke Other Hypertension Social History Smoking and tobacco/nicotine status: never used tobacco/nicotine Alcohol intake: never Substance/Drug Use: never Vitals/I&O/Wt Last Vital Signs Temp 97.7 F 10/11/23 20:58 Pulse 102 H 10/11/23 22:59 Resp 18 10/11/23 22:59 BP 147/94 10/11/23 22:59 Pulse Ox 96 10/11/23 22:59 O2 Del Method Room Air 10/11/23 22:59 Weight last 48 hrs Weight 122.47 kg Physical Exam 2 Narrative: General: Patient is awake. Head: Normocephalic. Atraumatic. EOM intact. Neck: Elevated JVD. Cardiovascular: RRR. No gallops. No murmurs. No p 1+ edema in bilateral lower extremities. Lungs: Clear to auscultation, no use of accessory muscles, no crackles or wheezes. Skin: No jaundice. No rashes. Abdomen: Abdomen is distended. Very mild TTP in all 4 quadrants. Positive fluid wave. Genito Urinary: Mathew catheter in place with ryan-colored urine. Rectal: Rectal exam not performed since no symptoms indicated blood loss. Extremities: No cyanosis or clubbing. Musculoskeletal: No swollen or erythematous joints. Neurological: Moves all 4 extremities. No myoclonus. Data 10/11/23 19:28 10/11/23 19:28 A&P Assessment and plan (1) Ascites: Tense ascites on exam Prior imaging reviewed, small ascites previously noted Suspect ascites is from cardiac source which would explain the high protein content/Hounsfield units Anticipate paracentesis on Friday by radiology Peritoneal labs will help differentiate source of ascites Qualifiers: Ascites type: other type Qualified Code(s): R18.8 - Other ascites (2) Cystitis: No evidence of urinary retention Cystitis on imaging Urinalysis with white cells Was on oral Levaquin prior to admission, rotate to ceftriaxone for UTI coverage (3) Anasarca: Patient has diffuse volume overload Multiple areas of overload on exam and on CT imaging Will continue diuresis convert to IV form of Bumex Strict I's and O's Daily weights (4) Pneumonia: CT imaging with pneumonia, patient reports being treated with pneumonia prior to admission Given his underlying urinary tract infection development while on Levaquin, switch antibiotics as noted above Will add on azithromycin for atypical coverage given were switching to ceftriaxone (5) CHF (congestive heart failure): Heart failure with reduced ejection fraction Patient is overloaded on exam Start IV diuresis Does not appear to be on beta-candice Qualifiers: Heart failure chronicity: chronic Heart failure type: unspecified Qualified Code(s): I50.9 - Heart failure, unspecified (6) Chronic kidney disease (CKD): Chronic kidney disease, suspected to be stage IIIb Renally dose medications Avoid nephrotoxins Qualifiers: Chronic kidney disease stage: unspecified stage Qualified Code(s): N 18.9 - Chronic kidney disease, unspecified Plan DVT prophylaxis: Xarelto Attestations 2 Medical Necessity Statement*: Patient presents with tense ascites for which will be admitted observation for IV diuresis and plans for paracentesis. Coding Level of Care Code Acute Code for g Fwd Diagnoses Ascites R18.8 Ascites type: other type Cystitis N30.90 Anasarca R60.1 Pneumonia J18.9 CHF (congestive heart failure) I50.9 Heart failure chronicity: chronic Heart failure type: unspecified Chronic kidney disease (CKD) N18.9 Chronic kidney disease stage: unspecified stage
[2023-10-12] VITALS (30 sets, daily range): BP systolic 90–130; BP diastolic 63–93; PULSE 89–121; RESP 16–25; TEMP 36.2–36.6; O2SAT 86–98; BMI 37.6
[2023-10-12] MEDS: cefTRIAXone 1,000 mg SDV 1000 MG IVP (02:31)
[2023-10-12] MEDS: azithromycin 500 MG in sodium chloride 0.9% 250 ML 250 MG IV (02:32)
[2023-10-12] MEDS: ondansetron 4 MG Tablet PO (03:31)
[2023-10-12] MEDS: acetaminophen 325 mg Tablet 650 MG PO (03:31)
[2023-10-12] MEDS: oxyCODONE 5 mg IR Tab/Cap PO (03:50)
[2023-10-12 04:37] LABS: Anion Gap 21.2 (5-19); Blood Urea Nitrogen 42 mg/dL (8-23); Carbon Dioxide 18 mmol/L (22-29); Chloride 97 mmol/L (98-107); Creatinine Clr Calc Pharmacy 45.7761; Glomerular Filtration Rate 30.4 mL/min (90-130); Glucose 257 mg/dL (65-115); Magnesium 2.3 mg/dL (1.7-2.3); Osmolality Calculated 291 mOsm/kg (285-295); Phosphorus 3.9 mg/dL (2.5-4.5); Potassium 5.2 mmol/L (3.5-5.1); Sodium 131 mmol/L (136-145)
[2023-10-12] MEDS: bumetanide 0.25 mg/mL SDV 4 mL 1 MG IVP ×2 (06:06→09:45)
[2023-10-12 06:20] LABS: Glucose Point of Care 304 mg/dL (70-110)
--- NOTE | 2023-10-12 08:32 | P.PN_ITS ---
Subjective 2 Subjective: Patient is stating that he is agreeable for dialysis if needed I told him that we have to monitor his kidney function if it is less than 400 despite use of diuretic then will think about it Patient is stating that he is DNR/DNI does not want to be on full CODE STATUS, is at the bedside For now his blood pressure stable Last dose of anticoagulating agent was 9 AM 10/10 Vitals/I&O/Wt Last Vital Signs Temp 97.2 F L 10/12/23 07:16 Pulse 94 10/12/23 07:16 Resp 18 10/12/23 07:16 BP 112/75 10/12/23 07:16 Pulse Ox 96 10/12/23 07:16 O2 Del Method Room Air 10/12/23 07:16 10/11/23 10/12/23 10/12/23 22:59 06:59 14:59 Intake Total 250 / 250 Output Total 425 / 425 Balance -175 / -175 Weight last 48 hrs Weight 122.47 kg Weight 122.47 kg Weight 122.47 kg Physical Exam 2 Narrative: Distended abdomen nontender pleasant cooperative Anasarca Pleasant and cooperative, at the bedside Nontender distended bloated abdomen 100 mL urine concentrated GCS 15 currently on 1.5 L nasal cannula After abdominal or chest pain Extremity swelling Data 10/11/23 19:28 10/12/23 03:38 A&P Assessment and plan (1) CHF (congestive heart failure): Qualifiers: Heart failure chronicity: chronic Heart failure type: unspecified Qualified Code(s): I50.9 - Heart failure, unspecified (2) S/P ICD (internal cardiac defibrillator) procedure: (3) Anticoagulation adequate with anticoagulant therapy: (4) Ascites: Qualifiers: Ascites type: other type Qualified Code(s): R18.8 - Other ascites (5) Chronic kidney disease (CKD): Qualifiers: Chronic kidney disease stage: unspecified stage Qualified Code(s): N 18.9 - Chronic kidney disease, unspecified (6) NAKUL (obstructive sleep apnea): (7) Pneumonia: (8) Anasarca: Plan Anasarca Combination of CHF and acute on chronic kidney disease Will consult nephro Patient has an AICD for EF 10% Patient is not responding well to diuretics I will change his Lasix to Bumex on last admission Patient is agreeable for dialysis if needed Requesting paracentesis therapeutic and diagnostic No abdominal pain Acute on chronic kidney disease: Concern related to worsening of kidney function Hyperkalemia, acidosis, creatinine 2.2 Continue Bumex Will add p.o. bicarb tablets Will give 1 dose of Kayexalate Pneumonia: Continue antibiotics no recent fever Chronic hypoxia requires 2 to 3 L of oxygen at baseline DNR/DNI N.p.o. after midnight for paracentesis Patient will be changed to inpatient status Attestations 2 Medical Necessity Statement*: Continue medical management Diagnoses CHF (congestive heart failure) I50.9 Heart failure chronicity: chronic Heart failure type: unspecified S/P ICD (internal cardiac defibrillator) procedure Z95.810 Anticoagulation adequate with anticoagulant therapy Z79.01 Ascites R18.8 Ascites type: other type Chronic kidney disease (CKD) N18.9 Chronic kidney disease stage: unspecified stage NAKUL (obstructive sleep apnea) G47.33 Pneumonia J18.9 Anasarca R60.1
[2023-10-12] MEDS: pantoprazole DR 40 mg Tablet PO (09:32)
[2023-10-12] MEDS: midodrine 5 mg TABLET PO ×3 (09:32→20:18)
[2023-10-12] MEDS: allopurinol 100 mg Tablet PO (09:32)
[2023-10-12] MEDS: insulin lispro 100 unit/1 mL SUBCUT ×3 (09:32→17:23)
[2023-10-12] MEDS: amiodarone 200 mg Tablet PO (09:32)
[2023-10-12] MEDS: citalopram 20 mg Tablet PO (09:32)
[2023-10-12] MEDS: sodium bicarbonate 650 mg Tablet 1300 MG PO ×2 (09:40→17:23)
[2023-10-12] MEDS: doxycycline 100 mg Tablet PO ×2 (09:41→17:23)
--- NOTE | 2023-10-12 10:33 | P.CONIM_ITS ---
Providers/Reason For Consult 2 Consulting Physician/Specialty*: [facility]/Nephrology Reason for Consult*: Acute on CKD Attending Physician: Mayra Piña MD Primary Care Provider: Rochelle Rodriges MD History of Present Illness History of Present Illness Eliseo Reyes is a 62 year old male Patient is a 62-year-old male with multiple medical problems including cardiomyopathy with ejection fraction of 10 to 15%, with ICD, A-fib chronic kidney disease with a baseline creatinine in the mid 2 range, diabetes hypertension presented to the emergency department due to abdominal distention. Mathew catheter was placed in the ED CT scan showed question cystitis versus chronic outlet obstruction. Also showed mild to moderate right loculated pleural effusion bibasilar pneumonia. Cardiomegaly. Lab data is significant for potassium of 5.1 creatinine of 2.1 sodium 130 and CO2 level of 20. Patient is admitted for further management including possible congestive cardiac failure exacerbation, worsening DAYANNA and hyperkalemia. Review of Systems 2 Narrative: negative Medications/Allergies Home Medications Medication Instructions Recorded Confirmed Last Taken Type allopurinol 100 mg tablet 100 mg PO DAILY 06/30/19 10/07/23 10/07/23 History citalopram 20 mg tablet 20 mg PO DAILY 06/30/19 10/07/23 10/07/23 History rivaroxaban 20 mg tablet (Xarelto) 20 mg PO DAILY 06/30/19 10/07/23 10/07/23 History terazosin 1 mg capsule 1 mg PO BEDTIME 06/30/19 10/07/23 10/06/23 History ergocalciferol (vitamin D2) 1,250 50,000 unit PO Q7D 03/02/23 10/07/23 10/01/23 History mcg (50,000 unit) capsule amiodarone 200 mg tablet 200 mg PO DAILY #90 tabs 03/14/23 10/07/23 10/07/23 Rx empagliflozin 25 mg tablet 25 mg PO QAM 04/29/23 10/07/23 10/07/23 History (Jardiance) aspirin 81 mg tablet,delayed 81 mg PO DAILY 08/29/23 10/07/23 10/07/23 History release omeprazole 40 mg capsule,delayed 40 mg PO DAILY 09/18/23 10/07/23 10/07/23 History release potassium chloride 20 mEq 20 meq PO DAILY 09/18/23 10/07/23 10/07/23 History tablet,extended release atorvastatin 80 mg tablet 40 mg (1/2 x 80 mg) PO QPM #1 tab 09/26/23 10/07/23 10/06/23 Rx insulin lispro 100 unit/mL See Rx Instructions .Route 09/26/23 10/07/23 10/07/23 Rx subcutaneous solution (Humalog .COMPLEX #10 mL U-100 Insulin) midodrine 5 mg tablet 5 mg PO TID #90 tabs 09/26/23 10/07/23 10/07/23 Rx bumetanide 1 mg tablet 1 mg PO DAILY #90 tabs 10/03/23 10/07/23 10/07/23 Rx insulin glargine 100 unit/mL 25 unit SUBCUT BID 10/07/23 10/07/23 10/07/23 History subcutaneous solution (Lantus U-100 Insulin) polyethylene glycol 3350 17 gram 17 g PO BID PRN Constipation 10/07/23 10/07/23 10/04/23 History oral powder packet levofloxacin 750 mg tablet 750 mg PO Q48H 7 days #4 tabs 10/08/23 Unknown Rx Allergies Allergy/AdvReac Type Severity Reaction Status Date / Time No Known Allergies Allergy Verified 10/11/23 18:25 Current Medications Generic Name Dose Route Start Last Admin Trade Name Freq PRN Reason Stop Dose Admin Acetaminophen 650 mg 10/12/23 01:47 10/12/23 03:31 Acetaminophen 325 Mg Tablet PO 650 mg Q6H PRN Administration Mild/Mod Pain Or Temp >/= 101 Allopurinol 100 mg 10/12/23 09:00 10/12/23 09:32 Allopurinol 100 Mg Tablet PO 100 mg DAILY DEMARCO Administration Amiodarone HCl 200 mg 10/12/23 09:00 10/12/23 09:32 Amiodarone 200 Mg Tablet PO 200 mg DAILY DEMARCO Administration Bumetanide 1 mg 10/12/23 09:00 10/12/23 09:45 Bumetanide 0.25 Mg/Ml Sdv 4 Ml IVP 1 mg DAILY DEMARCO Administration Ceftriaxone Sodium 1,000 mg 10/12/23 01:47 10/12/23 02:31 Ceftriaxone 1,000 Mg Sdv IVP 1,000 mg Q24H DEMARCO Administration Protocol Citalopram Hydrobromide 20 mg 10/12/23 09:00 10/12/23 09:32 Citalopram 20 Mg Tablet PO 20 mg DAILY DEMARCO Administration Doxycycline Monohydrate 100 mg 10/12/23 09:00 10/12/23 09:41 Doxycycline 100 Mg Tablet PO 100 mg BID DEMARCO Administration Protocol Insulin Human Lispro 0 unit 10/12/23 08:00 10/12/23 09:32 Insulin Lispro 100 Unit/1 Ml SUBCUT 10 unit WM&BEDTIME DEMARCO Administration Protocol Midodrine 5 mg 10/12/23 09:00 10/12/23 09:32 Midodrine 5 Mg Tablet PO 5 mg TID DEMARCO Administration Ondansetron HCl 4 mg 10/12/23 01:47 10/12/23 03:31 Ondansetron 4 Mg Tablet PO 4 mg Q8H PRN Administration NAUSEA Pantoprazole Sodium 40 mg 10/12/23 09:00 10/12/23 09:[address] 40 Mg Tablet PO 40 mg DAILY DEMARCO Administration Sodium Bicarbonate 1,300 mg 10/12/23 09:00 10/12/23 09:40 Sodium Bicarbonate 650 Mg Tablet PO 1,300 mg BID DEMARCO Administration PFSH Acute 2 PFSH: Medical History (Updated 10/12/23 @ 00:00 by Rosendo Olmos MD) Pneumonia Goals of care, counseling/discussion Transaminitis Chronic renal failure AICD discharge Bronchitis Low output heart failure Secondary nonischemic congestive cardiomyopathy CHF exacerbation Cardiomyopathy Nonobstructive per angiogram 03/19, EF 10-15 % on echo in 09/16 Arthritis Chronic kidney disease Atrial fibrillation Anticoagulation adequate with anticoagulant therapy Dyslipidemia NAKUL (obstructive sleep apnea) CHF (congestive heart failure) Diabetes DVT (deep venous thrombosis) Cardiomyopathy Surgical History (Updated 10/12/23 @ 00:00 by Rosendo Olmos MD) AICD (automatic cardioverter/defibrillator) present S/P knee replacement S/P ICD (internal cardiac defibrillator) procedure Family History Father Stroke CAD (coronary artery disease) Sister Stroke Brother Stroke Other Hypertension Social History Smoking and tobacco/nicotine status: never used tobacco/nicotine Alcohol intake: never Substance/Drug Use: never Vitals/I&O/Wt Last Vital Signs Temp 97.2 F L 10/12/23 07:16 Pulse 94 10/12/23 07:16 Resp 18 10/12/23 07:16 BP 112/75 10/12/23 07:16 Pulse Ox 96 10/12/23 07:16 O2 Del Method Room Air 10/12/23 07:16 10/11/23 10/12/23 10/12/23 22:59 06:59 14:59 Intake Total 250 / 250 Output Total 425 / 425 Balance -175 / -175 Weight last 48 hrs Weight 122.47 kg Weight 122.47 kg Weight 122.47 kg Physical Exam 2 Narrative: awake , alert no distress S1S2 RRR per report Lungs + crackles per report + edema Data 10/11/23 19:28 10/12/23 03:38 A&P Assessment and plan (1) Chronic kidney disease (CKD): Qualifiers: Chronic kidney disease stage: unspecified stage Qualified Code(s): N 18.9 - Chronic kidney disease, unspecified (2) CHF (congestive heart failure): Qualifiers: Heart failure chronicity: chronic Heart failure type: unspecified Qualified Code(s): I50.9 - Heart failure, unspecified (3) DAYANNA (acute kidney injury): The patient is a 62-year-old gentleman with heart failure reduced EF of 10 to 15% status post ICD, diabetes, DVT, obesity question of sleep apnea with acute on chronic renal failure 1. Acute on chronic kidney disease stage III: Baseline creatinine in the 1.5- 2.5 range. Patient now presented with volume overload/anasarca associated with mild hyperkalemia. Likely cardiorenal -Poor response to diuretics so far, will place on Bumex drip for the next 24 hours, if no response to diuretics, will discussed dialysis, keep n.p.o. after midnight tonight for possible line placement in the morning -Strict intake and output, has Mathew catheter -Avoid nephrotoxins and contrast studies. 2. Hyperkalemia: Lokelma diet, diuretics and monitor 3. Metabolic acidosis: Mild, will add Bicitra 4. Volume overload with anasarca: Multifactorial in the setting of CHF with low ejection fraction and worsening renal insufficiency, diuretics as above and if no response plan for dialysis 5. Question cirrhosis, likely cardiac, further workup in process 6. Pneumonia, management per primary team Patient evaluated using audiovisual cart. Time spent 40 minutes Consult Attestations 2 Medical Necessity Statement: per janine Coding Level of Care Code Acute Code for Chg Fwd Diagnoses Chronic kidney disease (CKD) N18.9 Chronic kidney disease stage: unspecified stage CHF (congestive heart failure) I50.9 Heart failure chronicity: chronic Heart failure type: unspecified DAYANNA (acute kidney injury) N17.9
[2023-10-12] MEDS: insulin glargine 100 units/1 mL 20 UNIT SUBCUT (10:40)
[2023-10-12 11:40] LABS: Glucose Point of Care 231 mg/dL (70-110)
[2023-10-12] MEDS: bumetanide 25 MG in empty flexible container 1 EACH 4 MG IV (13:39)
--- NOTE | 2023-10-12 14:11 | PC.NURSE ---
recieved to icu 8 awake and alert and started on bumex gtt , at bedside no significant distress noted
[2023-10-12 17:21] LABS: Glucose Point of Care 178 mg/dL (70-110)
[2023-10-12] MEDS: morphine 4 mg/mL SDV 1 mL 2 MG IVP (20:17)
--- NOTE | 2023-10-12 20:29 | PC.NURSE ---
Addendum entered by JUAN Whitlock 10/12/23 20:32: Q4H, not Q6H. Original Note: 1950- Pt complained about Abd pain. Dr. Olmos consulted via phone resulting in an order for Morphine 2mg IVP Q6H PRN.
[2023-10-12 21:45] LABS: Glucose Point of Care 126 mg/dL (70-110)
[2023-10-13] VITALS (29 sets, daily range): BP systolic 92–124; BP diastolic 67–88; PULSE 84–109; RESP 14–31; TEMP 36.2–36.8; O2SAT 92–97; BMI 39.8
[2023-10-13] MEDS: cefTRIAXone 1,000 mg SDV 1000 MG IVP (01:38)
[2023-10-13 04:27] LABS: Basophils % 0.3 %; Eosinophils % 0.3 %; Lymphocytes # 1.5 10^3/uL (0.8-4.8); Mean Corpuscular Hemoglobin 25.1 pg (27-33); Mean Corpuscular Volume 83.7 fl (82-101); Mean Platelet Volume 9.6 fL (7.4-10.4); Monocytes % 8.5 %; Neutrophils % 77.2 %; Nucleated Red Blood Cells % 0 %; Platelet Count 248 10^3/cmm (157-399); Red Blood Count 4.54 10^6/uL (3.85-5.65); Red Cell Distribution Width 19.8 % (12.1-15.1); White Blood Count 11.65 10^3/uL (3.29-11.43)
[2023-10-13 04:48] LABS: Alanine Aminotransferase 63 U/L (0-41); Albumin Level 2.9 g/dL (3.5-5.2); Alkaline Phosphatase 224 U/L (40-130); Aspartate Amino Transferase 153 U/L (0-40); Blood Urea Nitrogen 52 mg/dL (8-23); Calcium 8.9 mg/dL (8.5-10.5); Carbon Dioxide 21 mmol/L (22-29); Chloride 98 mmol/L (98-107); Globulin 3.7 g/dL (1.3-4.6); Glomerular Filtration Rate 26.2 mL/min (90-130); Glucose 87 mg/dL (65-115); Lactate Dehydrogenase 422 U/L (135-225); Osmolality Calculated 287 mOsm/kg (285-295); Sodium 132 mmol/L (136-145); Total Bilirubin 1.2 mg/dL (0.15-1.2); Total Protein 6.6 g/dL (6.6-8.7)
--- NOTE | 2023-10-13 06:00 | USR_ITS ---
PROCEDURE INFORMATION: Exam: US Abdomen; Limited Exam date and time: 10/13/2023 10:44 AM Age: 62 years old Clinical indication: Condition or disease; Other: Ascites TECHNIQUE: Imaging protocol: Real time ultrasound of the abdomen with image documentation. Limited exam focused on the region of clinical interest. COMPARISON: US abdomen limited [id number] 09/29/2023 8:32 AM FINDINGS: Intraperitoneal space: Abdominal ascites is observed. US/US abdomen t fluid [id number] IMPRESSION: Ascites.
[2023-10-13] MEDS: amiodarone 200 mg Tablet PO (09:43)
[2023-10-13] MEDS: citalopram 20 mg Tablet PO (09:43)
[2023-10-13] MEDS: doxycycline 100 mg Tablet PO ×2 (09:43→17:34)
[2023-10-13] MEDS: pantoprazole DR 40 mg Tablet PO (09:43)
[2023-10-13] MEDS: allopurinol 100 mg Tablet PO (09:43)
[2023-10-13] MEDS: sodium bicarbonate 650 mg Tablet 1300 MG PO ×2 (09:43→17:33)
[2023-10-13] MEDS: midodrine 5 mg TABLET PO ×3 (09:43→20:08)
[2023-10-13] MEDS: insulin glargine 100 units/1 mL 20 UNIT SUBCUT (09:46)
[2023-10-13 09:53] LABS: Glucose Point of Care 92 mg/dL (70-110)
--- NOTE | 2023-10-13 12:27 | P.PN_ITS ---
Subjective 2 Subjective: Patient is doing well 900 mL urine output Patient is still hypervolemic For persistent hypervolemia patient had decided to agree for dialysis catheter placement, will request tunneled dialysis catheter placement from Dr. Jorge Soto on board: In agreement Vitals/I&O/Wt Last Vital Signs Temp 97.1 F L 10/13/23 12:00 Pulse 90 10/13/23 12:00 Resp 25 H 10/13/23 12:00 BP 101/67 10/13/23 12:00 Pulse Ox 96 10/13/23 12:00 O2 Del Method Nasal Cannula 10/12/23 20:00 O2 Flow Rate 2 10/12/23 20:00 10/12/23 10/13/23 10/13/23 22:59 06:59 14:59 Intake Total 100 / 100 Output Total 500 / 500 400 / 900 Balance -500 / -500 -400 / -900 100 / 100 Weight last 48 hrs Weight 129.546 kg Weight 122.47 kg Weight 122.47 kg Weight 122.47 kg Physical Exam 2 Narrative: Anasarca has not improved Currently hemodynamically stable On 2 L Swelling of upper and lower extremities Abdomen soft however distended Pleasant Nonfocal neuroexam GCS 15 S1, S2 variable A-fib without RVR Data 10/13/23 04:06 10/13/23 04:06 Micro: Microbiology 10/11/23 20:00 Urine Culture - Final Urine,Clean Catch A&P Assessment and plan (1) S/P ICD (internal cardiac defibrillator) procedure: (2) CHF (congestive heart failure): Qualifiers: Heart failure chronicity: chronic Heart failure type: unspecified Qualified Code(s): I50.9 - Heart failure, unspecified (3) Ascites: Qualifiers: Ascites type: other type Qualified Code(s): R18.8 - Other ascites (4) Chronic kidney disease (CKD): Qualifiers: Chronic kidney disease stage: unspecified stage Qualified Code(s): N 18.9 - Chronic kidney disease, unspecified (5) NAKUL (obstructive sleep apnea): (6) Anasarca: Plan Persistent hypervolemia Will request tunneled dialysis catheter placement N.p.o. after midnight Hold off on anticoagulating agent Ascites: Requested IR guided paracentesis Continue ceftriaxone and doxycycline for pneumonia Patient is DNR/DNI Renal dialysis diet today Can be transferred out of ICU to [facility] Acute on chronic kidney disease Bumex drip turned off 900 mL urine output Patient has failed diuretic trial persistent hypervolemia is not clear indication for initiation of dialysis A-fib without RVR continue amiodarone Anticoagulating agent on hold Systolic CHF exacerbation Continue Bumex p.o. regimen for now, discontinue the drip Attestations 2 Medical Necessity Statement*: Transfer out of ICU to [facility] Diagnoses S/P ICD (internal cardiac defibrillator) procedure Z95.810 CHF (congestive heart failure) I50.9 Heart failure chronicity: chronic Heart failure type: unspecified Ascites R18.8 Ascites type: other type Chronic kidney disease (CKD) N18.9 Chronic kidney disease stage: unspecified stage NAKUL (obstructive sleep apnea) G47.33 Anasarca R60.1
[2023-10-13 12:34] LABS: Hepatitis B Core AB, Total Non-Reactive (Nonreactive); Hepatitis B Surface AB 13.7 (11.5-1000); Hepatitis B Surface Antigen Non-Reactive (Nonreactive)
--- NOTE | 2023-10-13 14:08 | P.PN_ITS ---
Subjective 2 Subjective: on 2L NC Medications: Reviewed: Yes Vitals/I&O/Wt Last Vital Signs Temp 97.1 F L 10/13/23 12:00 Pulse 90 10/13/23 12:00 Resp 25 H 10/13/23 12:00 BP 101/67 10/13/23 12:00 Pulse Ox 96 10/13/23 12:00 O2 Del Method Nasal Cannula 10/12/23 20:00 O2 Flow Rate 2 10/12/23 20:00 10/12/23 10/13/23 10/13/23 22:59 06:59 14:59 Intake Total 220 / 220 Output Total 500 / 500 400 / 900 Balance -500 / -500 -400 / -900 220 / 220 Weight last 48 hrs Weight 129.546 kg Weight 122.47 kg Weight 122.47 kg Weight 122.47 kg Physical Exam 2 Narrative: awake , alert no distress S1S2 RRR per report Lungs + crackles per report + edema Data 10/13/23 04:06 10/13/23 04:06 Micro: Microbiology 10/11/23 20:00 Urine Culture - Final Urine,Clean Catch A&P Assessment and plan (1) Chronic kidney disease (CKD): Qualifiers: Chronic kidney disease stage: unspecified stage Qualified Code(s): N 18.9 - Chronic kidney disease, unspecified (2) CHF (congestive heart failure): Qualifiers: Heart failure chronicity: chronic Heart failure type: unspecified Qualified Code(s): I50.9 - Heart failure, unspecified (3) DAYANNA (acute kidney injury): The patient is a 62-year-old gentleman with heart failure reduced EF of 10 to 15% status post ICD, diabetes, DVT, obesity question of sleep apnea with acute on chronic renal failure 1. Acute on chronic kidney disease stage III: Baseline creatinine in the 1.5- 2.5 range. Patient now presented with volume overload/anasarca associated with mild hyperkalemia. Likely cardiorenal -Poor response to diuretics so far, on Bumex drip,poor response so far -plan to intitate HD for volume management -Strict intake and output, has Mathew catheter -Avoid nephrotoxins and contrast studies. 2. Hyperkalemia: Lokelma diet, diuretics and monitor 3. Metabolic acidosis: Mild, will add Bicitra 4. Volume overload with anasarca: Multifactorial in the setting of CHF with low ejection fraction and worsening renal insufficiency, diuretics as above and if no response plan for dialysis 5. Question cirrhosis, likely cardiac, further workup in process 6. Pneumonia, management per primary team Patient evaluated using audiovisual cart. Time spent 40 minutes Attestations 2 Medical Necessity Statement*: per [facility] [place] Coding Level of Care Code Acute Code for Chg Fwd Diagnoses Chronic kidney disease (CKD) N18.9 Chronic kidney disease stage: unspecified stage CHF (congestive heart failure) I50.9 Heart failure chronicity: chronic Heart failure type: unspecified DAYANNA (acute kidney injury) N17.9
[2023-10-13] MEDS: bumetanide 1 mg Tablet 2 MG PO ×2 (14:27→20:08)
--- NOTE | 2023-10-13 14:44 | PC.NURSE ---
Transfer Note Patient transferred to med-surg room 277-1 from ICU via bed. Handoff report given to IVÁN Merchant. Patient oriented to environment and equipment. Covering service notified. Orders reviewed and will continue to monitor. Family notified of patient transfer. All patient belongings transferred and placed at bedside, upon transfer patient is alert/oriented x4 on 3LNC. Sacral wound noted, please see wound assessment for more detail.
--- NOTE | 2023-10-13 15:12 | PC.NURSE ---
patient received from ICU to 277-1. report received from Megha Jeffrey RN
[2023-10-13] MEDS: sucralfate 1 gm Tablet PO (21:30)
[2023-10-13] MEDS: morphine 4 mg/mL SDV 1 mL 2 MG IVP (21:30)
[2023-10-13] MEDS: insulin lispro 100 unit/1 mL SUBCUT (21:42)
[2023-10-14] VITALS (14 sets, daily range): BP systolic 100–129; BP diastolic 69–85; PULSE 49–108; RESP 16–26; TEMP 36–36.6; O2SAT 91–98
[2023-10-14] MEDS: cefTRIAXone 1,000 mg SDV 1000 MG IVP (01:24)
[2023-10-14 05:08] LABS: Basophils % 0.3 %; Eosinophils % 0.3 %; Hematocrit 39.1 % (37-53); Lymphocytes # 1.1 10^3/uL (0.8-4.8); Lymphocytes % 11.6 %; Mean Corpuscular HGB Conc 30.4 g/dL (30-55); Mean Corpuscular Hemoglobin 25.2 pg (27-33); Mean Corpuscular Volume 82.7 fl (82-101); Mean Platelet Volume 9.4 fL (7.4-10.4); Monocytes # 0.8 10^3/uL (0.2-0.9); Monocytes % 8.1 %; Neutrophils # 7.71 10^3/uL (1.8-7.7); Nucleated Red Blood Cells % 0 %; Platelet Count 233 10^3/cmm (157-399); Red Blood Count 4.73 10^6/uL (3.85-5.65); Red Cell Distribution Width 19.6 % (12.1-15.1); White Blood Count 9.76 10^3/uL (3.29-11.43)
[2023-10-14 05:28] LABS: Anion Gap 16.9 (5-19); Blood Urea Nitrogen 54 mg/dL (8-23); Calcium 8.7 mg/dL (8.5-10.5); Carbon Dioxide 24 mmol/L (22-29); Chloride 98 mmol/L (98-107); Creatinine Clr Calc Pharmacy 48.6027; Glomerular Filtration Rate 32.1 mL/min (90-130); Glucose 109 mg/dL (65-115); Osmolality Calculated 295 mOsm/kg (285-295); Potassium 3.9 mmol/L (3.5-5.1); Sodium 135 mmol/L (136-145)
[2023-10-14] MEDS: pantoprazole DR 40 mg Tablet PO (08:42)
[2023-10-14] MEDS: amiodarone 200 mg Tablet PO (08:43)
[2023-10-14] MEDS: sodium bicarbonate 650 mg Tablet 1300 MG PO ×2 (08:43→18:18)
[2023-10-14] MEDS: bumetanide 1 mg Tablet 2 MG PO ×3 (08:43→20:06)
[2023-10-14] MEDS: midodrine 5 mg TABLET PO ×3 (08:43→20:06)
[2023-10-14] MEDS: doxycycline 100 mg Tablet PO ×2 (08:43→18:18)
[2023-10-14] MEDS: allopurinol 100 mg Tablet PO (08:43)
[2023-10-14] MEDS: citalopram 20 mg Tablet PO (08:43)
[2023-10-14] MEDS: insulin glargine 100 units/1 mL 20 UNIT SUBCUT (08:47)
--- NOTE | 2023-10-14 08:59 | P.PN_ITS ---
Subjective 2 Subjective: N.p.o.for dialysis catheter placement Patient is stating that he does not want to wait for get readmitted for his persistent hypervolemia he would like to get dialysis catheter placed during this admission Nephrology was made aware Vitals/I&O/Wt Last Vital Signs Temp 98 F 10/14/23 07:36 Pulse 89 10/14/23 07:36 Resp 16 10/14/23 07:36 BP 129/77 10/14/23 07:36 Pulse Ox 96 10/14/23 07:36 O2 Del Method Nasal Cannula 10/14/23 07:36 O2 Flow Rate 2 10/14/23 04:00 10/13/23 10/14/23 10/14/23 22:59 06:59 14:59 Intake Total 120 / 340 Output Total 500 / 2350 Balance 120 / -1510 -500 / -2010 Weight last 48 hrs Weight 125.645 kg Weight 129.546 kg Physical Exam 2 Narrative: Patient is showing signs of persistent hypervolemia Currently hemodynamically stable on 2 L nasal cannula Mathew catheter in place Abdomen distended but nontender Less bloated No active chest pain Pleasant cooperative at the bedside S1, S2 variable Data 10/14/23 04:46 10/14/23 04:46 Micro: Microbiology 10/11/23 20:00 Urine Culture - Final Urine,Clean Catch A&P Assessment and plan (1) CHF (congestive heart failure): Qualifiers: Heart failure chronicity: chronic Heart failure type: unspecified Qualified Code(s): I50.9 - Heart failure, unspecified (2) S/P ICD (internal cardiac defibrillator) procedure: (3) Anticoagulation adequate with anticoagulant therapy: (4) Ascites: Qualifiers: Ascites type: other type Qualified Code(s): R18.8 - Other ascites (5) Chronic kidney disease (CKD): Qualifiers: Chronic kidney disease stage: unspecified stage Qualified Code(s): N 18.9 - Chronic kidney disease, unspecified (6) Pneumonia: (7) NAKUL (obstructive sleep apnea): (8) Anasarca: (9) Hypervolemia: Plan Persistent hypervolemia This is his third admission in the hospital Despite adequate diuresis patient is still showing signs of anasarca with extremity swelling No paracentesis was done because there is not enough fluid to be drained He is n.p.o. for dialysis catheter placement Has been off anticoagulating agent since last week Continue amiodarone along Bumex He is on ceftriaxone because of ascitic fluid detected and pneumonia Afebrile Chronic hypoxia between 2 to 3 L of oxygen Will discontinue ceftriaxone continue doxycycline Nephrology was made aware Blood pressure has been stable Will resume renal dialysis, diabetic diet after dialysis catheter placement 4 hours after dialysis catheter placement we can resume his anticoagulating agent He is DNR/DNI Will need dialysis chair time Attestations 2 Medical Necessity Statement*: Continue medical management Diagnoses CHF (congestive heart failure) I50.9 Heart failure chronicity: chronic Heart failure type: unspecified S/P ICD (internal cardiac defibrillator) procedure Z95.810 Anticoagulation adequate with anticoagulant therapy Z79.01 Ascites R18.8 Ascites type: other type Chronic kidney disease (CKD) N18.9 Chronic kidney disease stage: unspecified stage Pneumonia J18.9 NAKUL (obstructive sleep apnea) G47.33 Anasarca R60.1 Hypervolemia E87.70
--- NOTE | 2023-10-14 09:51 | SC_ITS ---
WS: [id number] C-ARM RADIOGRAPHS CHEST; 3 IMAGES HISTORY: hemodialysis catheter COMPARISON: None available. Interval placement of a hemodialysis catheter through the RIGHT subclavian. Dialysis catheter appears to be appropriate position on this C-arm image. SC/C-arm FL for CVA [address]40 IMPRESSION: Intraoperative imaging during dialysis catheter placement.
--- NOTE | 2023-10-14 10:01 | ANES.PREANE2 ---
Pre-Anesthetic Assessment Height/Weight: Height 1.8 m Weight 125.645 kg Temp Pulse Resp BP Pulse Ox O2 Del Method O2 Flow Rate 98 F 89 16 129/77 96 Nasal Cannula 2 10/14/23 07:36 10/14/23 07:36 10/14/23 07:36 10/14/23 07:36 10/14/23 07:36 10/14/23 07:36 10/14/23 04:00 Operation Date: 10/14/23 13:35 Proposed Procedures p Dialysis Catheter Insertion(Not Applicable) - Wayne Patel DO Familial anesthetic complications: none Last intake: > 8hrs Exam alert, oriented x 3, clear to auscultation bilaterally and regular rate & rhythm Pulmonary Sleep Apnea R lobular infiltrate CV/HEM Atrial Fibrillation, Coronary Artery Disease and Congestive Heart Failure ICD, EF 10 - 15% Chronic Renal Failure Hepatic Cirrhosis GI Gastroesophageal Reflux Disease small volume ascites (too small to be drained, but overall anasarca with tense abdodmen) Anesthetic Plan ASA status: 4 Anesthesia: Local Only Other: Discussed with patient risk for cardiovascular collapse with GETA and aspiration risk w/ MAC. Will proceed with local and mild conscious sedation and generous local anesthesia for tunneling. Patient and family are informed he will have intraoperative awareness/recall and that this is to be expected. Risk of > 500 ml blood loss (7ml/kg in children): No Medications/Allergies Home Medications Medication Instructions Recorded Confirmed Last Taken Type allopurinol 100 mg tablet 100 mg PO DAILY 06/30/19 10/13/23 10/07/23 History citalopram 20 mg tablet 20 mg PO DAILY 06/30/19 10/13/23 10/07/23 History rivaroxaban 20 mg tablet (Xarelto) 20 mg PO DAILY 06/30/19 10/13/23 10/07/23 History terazosin 1 mg capsule 1 mg PO BEDTIME 06/30/19 10/13/23 10/06/23 History ergocalciferol (vitamin D2) 1,250 50,000 unit PO Q7D 03/02/23 10/13/23 10/01/23 History mcg (50,000 unit) capsule amiodarone 200 mg tablet 200 mg PO DAILY #90 tabs 03/14/23 10/13/23 10/07/23 Rx empagliflozin 25 mg tablet 25 mg PO QAM 04/29/23 10/13/23 10/07/23 History (Jardiance) aspirin 81 mg tablet,delayed 81 mg PO DAILY 08/29/23 10/13/23 10/07/23 History release omeprazole 40 mg capsule,delayed 40 mg PO DAILY 09/18/23 10/13/23 10/07/23 History release potassium chloride 20 mEq 20 meq PO DAILY 09/18/23 10/13/23 10/07/23 History tablet,extended release atorvastatin 80 mg tablet 40 mg (1/2 x 80 mg) PO QPM #1 tab 09/26/23 10/13/23 10/06/23 Rx insulin lispro 100 unit/mL See Rx Instructions .Route 09/26/23 10/13/23 10/07/23 Rx subcutaneous solution (Humalog .COMPLEX #10 mL U-100 Insulin) midodrine 5 mg tablet 5 mg PO TID #90 tabs 09/26/23 10/13/23 10/07/23 Rx bumetanide 1 mg tablet 1 mg PO DAILY #90 tabs 10/03/23 10/13/23 10/07/23 Rx insulin glargine 100 unit/mL 25 unit SUBCUT BID 10/07/23 10/13/23 10/07/23 History subcutaneous solution (Lantus U-100 Insulin) polyethylene glycol 3350 17 gram 17 g PO BID PRN Constipation 10/07/23 10/13/23 10/04/23 History oral powder packet levofloxacin 750 mg tablet 750 mg PO Q48H 7 days #4 tabs 10/08/23 10/13/23 Unknown Rx albuterol sulfate 0.63 mg/3 mL 0.63 mg inhalation .Q4-6H PRN 10/13/23 10/13/23 Unknown History solution for nebulization Shortness Of Breath carvedilol 3.125 mg tablet 3.125 mg PO BID 10/13/23 10/13/23 Unknown History Allergies Allergy/AdvReac Type Severity Reaction Status Date / Time No Known Allergies Allergy Verified 10/11/23 18:25 Current Medications Generic Name Dose Route Start Last Admin Trade Name Freq PRN Reason Stop Dose Admin Acetaminophen 650 mg 10/12/23 01:47 10/12/23 03:31 Acetaminophen 325 Mg Tablet PO 650 mg Q6H PRN Administration Mild/Mod Pain Or Temp >/= 101 Allopurinol 100 mg 10/12/23 09:00 10/14/23 08:43 Allopurinol 100 Mg Tablet PO 100 mg DAILY DEMARCO Administration Amiodarone HCl 200 mg 10/12/23 09:00 10/14/23 08:43 Amiodarone 200 Mg Tablet PO 200 mg DAILY DEMARCO Administration Bumetanide 2 mg 10/13/23 15:00 10/14/23 08:43 Bumetanide 1 Mg Tablet PO 2 mg TID DEMARCO Administration Citalopram Hydrobromide 20 mg 10/12/23 09:00 10/14/23 08:43 Citalopram 20 Mg Tablet PO 20 mg DAILY DEMARCO Administration Doxycycline Monohydrate 100 mg 10/12/23 09:00 10/14/23 08:43 Doxycycline 100 Mg Tablet PO 100 mg BID DEMARCO Administration Protocol Insulin Glargine 20 unit 10/12/23 09:00 10/14/23 08:47 Insulin Glargine 100 Units/1 Ml SUBCUT 20 unit DAILY DEMARCO Administration Insulin Human Lispro 0 unit 10/12/23 08:00 10/14/23 08:14 Insulin Lispro 100 Unit/1 Ml SUBCUT Not Given WM&BEDTIME DEMARCO Protocol Midodrine 5 mg 10/12/23 09:00 10/14/23 08:43 Midodrine 5 Mg Tablet PO 5 mg TID DEMARCO Administration Morphine Sulfate 2 mg 10/12/23 19:47 10/13/23 21:30 Morphine 4 Mg/Ml Sdv 1 Ml IVP 2 mg Q4H PRN Administration SEVERE PAIN Ondansetron HCl 4 mg 10/12/23 01:47 10/12/23 03:31 Ondansetron 4 Mg Tablet PO 4 mg Q8H PRN Administration NAUSEA Pantoprazole Sodium 40 mg 10/12/23 09:00 10/14/23 08:[address] 40 Mg Tablet PO 40 mg DAILY DEMARCO Administration Sodium Bicarbonate 1,300 mg 10/12/23 09:00 10/14/23 08:43 Sodium Bicarbonate 650 Mg Tablet PO 1,300 mg BID DEMARCO Administration PFSH Anesthesia Medical History (Updated 10/14/23 @ 09:05 by Mayra Piña MD) Pneumonia Goals of care, counseling/discussion Transaminitis Chronic renal failure AICD discharge Bronchitis Low output heart failure Secondary nonischemic congestive cardiomyopathy CHF exacerbation Cardiomyopathy Nonobstructive per angiogram 03/19, EF 10-15 % on echo in 09/16 Arthritis Chronic kidney disease Atrial fibrillation Anticoagulation adequate with anticoagulant therapy Dyslipidemia NAKUL (obstructive sleep apnea) CHF (congestive heart failure) Diabetes DVT (deep venous thrombosis) Cardiomyopathy Surgical History (Updated 10/12/23 @ 00:00 by Rosendo Olmos MD) AICD (automatic cardioverter/defibrillator) present S/P knee replacement S/P ICD (internal cardiac defibrillator) procedure Family History Father Stroke CAD (coronary artery disease) Sister Stroke Brother Stroke Other Hypertension Social History Smoking and tobacco/nicotine status: never used tobacco/nicotine Alcohol intake: never Substance/Drug Use: never Data Anesthesia 10/14/23 04:46 10/14/23 04:46 Short CBC 10/13/23 10/14/23 Range/Units 04:06 04:46 WBC 11.65 H 9.76 (3.29-11.43) 10^3/uL Hgb 11.40 11.90 (11.27-16.99) g/dL Hct 38.0 39.1 (37-53) % MCV 83.7 82.7 (82-101) fl Plt Count 248 233 (157-399) 10^3/cmm Neut % (Auto) 77.2 79.0 % Neut # (Auto) 9.00 H 7.71 H (1.8-7.7) 10^3/uL BMP 10/13/23 10/14/23 04:06 04:46 Sodium 132 L 135 L Potassium 5.0 3.9 Chloride 98 98 Carbon Dioxide 21 L 24 BUN 52 H 54 H Creatinine 2.5 H 2.1 H Glucose 87 109 Calcium 8.9 8.7 Liver Function 10/13/23 Range/Units 04:06 Total Bilirubin 1.2 (0.15-1.2) mg/dL AST 153 H (0-40) U/L ALT 63 H (0-41) U/L Alkaline Phosphatase 224 H (40-130) U/L Albumin 2.9 L (3.5-5.2) g/dL Microbiology 08/17/24 20:00 Urine Culture - Final Urine,Clean Catch Cardiac Studies: Echocardiogram 03/03/23 Echocardiogram Limited Views 09/17/23 Sestamibi Stress Test (Cardiology) 03/04/23
--- NOTE | 2023-10-14 10:04 | P.CONIM_ITS ---
Providers/Reason For Consult 2 Consulting Physician/Specialty*: Dr. Wayne Patel, DO/General Surgery Reason for Consult*: Permacath placement Attending Physician: Mayra Piña MD Primary Care Provider: Rochelle Rodriges MD History of Present Illness History of Present Illness Eliseo Reyes is a 62 year old male who originally presented to the hospital with abdominal pain. That pain has since resolved. He denies any current pain. He regularly takes Eliquis but has not taken any for the last 4 days. While in the hospital he was found to have acute on chronic kidney failure. Nephrology was consulted on the patient and requested permacath placement by general surgery. Patient denies any nausea, emesis, diarrhea, constipation, hematochezia and/or melena Review of Systems 2 General: Reports: 10 or more systems reviewed and unremarkable except in HPI and below Medications/Allergies Home Medications Medication Instructions Recorded Confirmed Last Taken Type allopurinol 100 mg tablet 100 mg PO DAILY 06/30/19 10/13/23 10/07/23 History citalopram 20 mg tablet 20 mg PO DAILY 06/30/19 10/13/23 10/07/23 History rivaroxaban 20 mg tablet (Xarelto) 20 mg PO DAILY 06/30/19 10/13/23 10/07/23 History terazosin 1 mg capsule 1 mg PO BEDTIME 06/30/19 10/13/23 10/06/23 History ergocalciferol (vitamin D2) 1,250 50,000 unit PO Q7D 03/02/23 10/13/23 10/01/23 History mcg (50,000 unit) capsule amiodarone 200 mg tablet 200 mg PO DAILY #90 tabs 03/14/23 10/13/23 10/07/23 Rx empagliflozin 25 mg tablet 25 mg PO QAM 04/29/23 10/13/23 10/07/23 History (Jardiance) aspirin 81 mg tablet,delayed 81 mg PO DAILY 08/29/23 10/13/23 10/07/23 History release omeprazole 40 mg capsule,delayed 40 mg PO DAILY 09/18/23 10/13/23 10/07/23 History release potassium chloride 20 mEq 20 meq PO DAILY 09/18/23 10/13/23 10/07/23 History tablet,extended release atorvastatin 80 mg tablet 40 mg (1/2 x 80 mg) PO QPM #1 tab 09/26/23 10/13/23 10/06/23 Rx insulin lispro 100 unit/mL See Rx Instructions .Route 09/26/23 10/13/23 10/07/23 Rx subcutaneous solution (Humalog .COMPLEX #10 mL U-100 Insulin) midodrine 5 mg tablet 5 mg PO TID #90 tabs 09/26/23 10/13/23 10/07/23 Rx bumetanide 1 mg tablet 1 mg PO DAILY #90 tabs 10/03/23 10/13/23 10/07/23 Rx insulin glargine 100 unit/mL 25 unit SUBCUT BID 10/07/23 10/13/23 10/07/23 History subcutaneous solution (Lantus U-100 Insulin) polyethylene glycol 3350 17 gram 17 g PO BID PRN Constipation 10/07/23 10/13/23 10/04/23 History oral powder packet levofloxacin 750 mg tablet 750 mg PO Q48H 7 days #4 tabs 10/08/23 10/13/23 Unknown Rx albuterol sulfate 0.63 mg/3 mL 0.63 mg inhalation .Q4-6H PRN 10/13/23 10/13/23 Unknown History solution for nebulization Shortness Of Breath carvedilol 3.125 mg tablet 3.125 mg PO BID 10/13/23 10/13/23 Unknown History Allergies Allergy/AdvReac Type Severity Reaction Status Date / Time No Known Allergies Allergy Verified 10/11/23 18:25 Current Medications Generic Name Dose Route Start Last Admin Trade Name Kalenq PRN Reason Stop Dose Admin Acetaminophen 650 mg 10/12/23 01:47 10/12/23 03:31 Acetaminophen 325 Mg Tablet PO 650 mg Q6H PRN Administration Mild/Mod Pain Or Temp >/= 101 Allopurinol 100 mg 10/12/23 09:00 10/14/23 08:43 Allopurinol 100 Mg Tablet PO 100 mg DAILY DEMARCO Administration Amiodarone HCl 200 mg 10/12/23 09:00 10/14/23 08:43 Amiodarone 200 Mg Tablet PO 200 mg DAILY DEMARCO Administration Bumetanide 2 mg 10/13/23 15:00 10/14/23 08:43 Bumetanide 1 Mg Tablet PO 2 mg TID DEMARCO Administration Citalopram Hydrobromide 20 mg 10/12/23 09:00 10/14/23 08:43 Citalopram 20 Mg Tablet PO 20 mg DAILY DEMARCO Administration Doxycycline Monohydrate 100 mg 10/12/23 09:00 10/14/23 08:43 Doxycycline 100 Mg Tablet PO 100 mg BID DEMARCO Administration Protocol Insulin Glargine 20 unit 10/12/23 09:00 10/14/23 08:47 Insulin Glargine 100 Units/1 Ml SUBCUT 20 unit DAILY DEMARCO Administration Insulin Human Lispro 0 unit 10/12/23 08:00 10/14/23 08:14 Insulin Lispro 100 Unit/1 Ml SUBCUT Not Given WM&BEDTIME DEMARCO Protocol Midodrine 5 mg 10/12/23 09:00 10/14/23 08:43 Midodrine 5 Mg Tablet PO 5 mg TID DEMARCO Administration Morphine Sulfate 2 mg 10/12/23 19:47 10/13/23 21:30 Morphine 4 Mg/Ml Sdv 1 Ml IVP 2 mg Q4H PRN Administration SEVERE PAIN Ondansetron HCl 4 mg 10/12/23 01:47 10/12/23 03:31 Ondansetron 4 Mg Tablet PO 4 mg Q8H PRN Administration NAUSEA Pantoprazole Sodium 40 mg 10/12/23 09:00 10/14/23 08:[address] 40 Mg Tablet PO 40 mg DAILY DEMARCO Administration Sodium Bicarbonate 1,300 mg 10/12/23 09:00 10/14/23 08:43 Sodium Bicarbonate 650 Mg Tablet PO 1,300 mg BID DEMARCO Administration PFSH Acute 2 PFSH: Medical History Pneumonia Goals of care, counseling/discussion Transaminitis Chronic renal failure AICD discharge Bronchitis Low output heart failure Secondary nonischemic congestive cardiomyopathy CHF exacerbation Cardiomyopathy Nonobstructive per angiogram 03/19, EF 10-15 % on echo in 09/16 Arthritis Chronic kidney disease Atrial fibrillation Anticoagulation adequate with anticoagulant therapy Dyslipidemia NAKUL (obstructive sleep apnea) CHF (congestive heart failure) Diabetes DVT (deep venous thrombosis) Cardiomyopathy Surgical History AICD (automatic cardioverter/defibrillator) present S/P knee replacement S/P ICD (internal cardiac defibrillator) procedure Family History Father Stroke CAD (coronary artery disease) Sister Stroke Brother Stroke Other Hypertension Social History Smoking and tobacco/nicotine status: never used tobacco/nicotine Alcohol intake: never Substance/Drug Use: never Vitals/I&O/Wt Last Vital Signs Temp 98 F 10/14/23 07:36 Pulse 89 10/14/23 07:36 Resp 16 10/14/23 07:36 BP 129/77 10/14/23 07:36 Pulse Ox 96 10/14/23 07:36 O2 Del Method Nasal Cannula 10/14/23 07:36 O2 Flow Rate 2 10/14/23 04:00 10/13/23 10/14/23 10/14/23 22:59 06:59 14:59 Intake Total 120 / 340 Output Total 500 / 2350 Balance 120 / -1510 -500 / -2010 Weight last 48 hrs Weight 277 lb Weight 285 lb 9.6 oz Physical Exam 2 Narrative: General : Patient is well developed , no acute distress, oriented x3 Head : Normal cephalic, a-traumatic. Ears : Pinnae and external canal are normal. Hearing is normal. Eyes : PERRLA, Sclera and injection are normal. No conjunctival discharge. Nose : Mucous membranes are without erythema. Throat : buccal mucosa is normal, gums are without significant recession or hypertrophy. Lungs : Equal chest rise bilaterally, no use of accessory muscles, trachea is midline. Cor : Rate and rhythm are normal. Abdomen : Soft, ND, NT, no g/r/m Extremities : No edema, no cyanosis or clubbing, dorsalis pedis pulses are present bilaterally, non-tender to palpation of calves. Upper extremities are normal bilaterally. Back : non-tender to palpation, no CVA tenderness. Neuro : CN II - XII intact, Upper and lower extremities have equal and full strength Data 10/14/23 04:46 10/14/23 04:46 Micro: Microbiology 10/11/23 20:00 Urine Culture - Final Urine,Clean Catch A&P Assessment and plan (1) Chronic kidney disease (CKD): Qualifiers: Chronic kidney disease stage: unspecified stage Qualified Code(s): N 18.9 - Chronic kidney disease, unspecified (2) DAYANNA (acute kidney injury): Plan Permacath placement The risks and benefits of the procedure, including but not limited to, bleeding, infection, infection requiring Mediport removal antibiotic therapy and repeat surgery, damage to surrounding structures, scar, numbness, pain, pneumothorax requiring thoracostomy tube, were explained to the patient. He/She is understanding of the risks and wishes to proceed. Coding Level of Care Code 45303 Diagnoses Chronic kidney disease (CKD) N18.9 Chronic kidney disease stage: unspecified stage DAYANNA (acute kidney injury) N17.9
--- NOTE | 2023-10-14 10:16 | PC.NURSE ---
Pt went down for permacath placement. Staff met this RN at bedside for handoff. Consent signed and in front of the chart. Pt and updated on plan at this time.
[2023-10-14] MEDS: sodium chloride 0.9% 1,000 ML 30 ML IV (10:17)
[2023-10-14] MEDS: ceFAZolin 3,000 MG in sodium chloride 0.9% (plus) 100 ML 200 MG IV (10:28)
[2023-10-14] MEDS: lidocaine-epi 2% PF 1:200,000 20 mL SDV XX (10:50)
[2023-10-14] MEDS: heparin, porcine 1,000 unit/mL INJ 10 mL 10000 UNIT IRRIGATION (10:51)
--- NOTE | 2023-10-14 11:11 | XRR_ITS ---
PROCEDURE INFORMATION: Exam: XR Chest Exam date and time: 10/14/2023 11:36 AM Age: 62 years old Clinical indication: Device placement; Other: Permacath placement; Prior surgery; Surgery date: Post-operative (0-2 days); Additional info: Postop permacath placement TECHNIQUE: Imaging protocol: Radiologic exam of the chest. Views: 1 view. COMPARISON: CR XR chest 1V portable [id number] 10/07/2023 10:58 AM FINDINGS: Tubes, catheters and devices: RV pacer. Central line in place with its tip in the right atrium. Lungs: Pulmonary hypervascularity. No infiltrate. Pleural spaces: Unremarkable. No pleural effusion. No pneumothorax. Heart/Mediastinum: Cardiomegaly. Bones/joints: Unremarkable. XR/XR chest 1V portable [id number] IMPRESSION: Central line in place with its tip in the right atrium.
--- NOTE | 2023-10-14 11:11 | PM.OP ---
Operative Report Date of procedure: October 14, 2023 Pre-op diagnosis: Acute on chronic kidney disease Post-op diagnosis: same Procedure done: PermaCath placement Intraoperative interpretation of fluoroscopy Implants: 27 cm permacath Specimens removed/disposition: None Surgeon: Wayne Patel DO Anesthesia: MAC and Local Estimated blood loss (mL): 5 Complications: None apparent Brief History: This is a very pleasant 62-year-old gentleman who presented to the hospital with acute on chronic kidney disease. Nephrology requested permacath placement. The risks and benefits were explained and documented. Procedure: Patient was taken to the operating room and placed supine on the operating room table. All bony prominences were padded. He was given IV sedation and monitored throughout the case by the anesthesia personnel. SCDs were placed and turned on. The arms were tucked to the side. Patient received Vancomycin preoperatively IV. The bilateral chest wall was prepped and draped in usual sterile fashion using chlorhexidine base prep. Sterile drapes were applied. We did procedure pause prior to beginning. An 18 gauge needle was placed in the right internal jugular vein under ultrasound guidance. Dark, nonpulsatile blood was aspirated. A guidewire was placed through the needle centrally toward the atrial/vena caval junction. Fluoroscopy visualized good placement. The needle was removed and the guidewire was clipped to the drape with a hemostat. Further local anesthetic was infiltrated in the soft tissues of the right chest wall and a #15 blade was used to make a vertical skin incision. A #15 blade was used to make a small skin anshu around the guidewire insertion area. The permacath tubing was tunneled through the subcutaneous tissues up to the needle insertion location. Serial dilators were used to serially dilate over the guidewire . A dilator with a peel-away sheath was placed over the guidewire and placed centrally. The guidewire was removed as well as the dilator and the permacath was fed into the split sheath. The split sheath was removed. Both ports were aspirated to reveal dark blood and were flushed with saline only as the patient has a heparin allergy. Final fluoroscopy visualization showed no kink in the catheter and the tip of the permacath in the right atrium. There is no obvious pneumothorax.. Both skin incisions were thoroughly irrigated and suctioned dry. Meticulous hemostasis noted. The internal jugular access site was closed with 4-0 Vicryl in a subcuticular fashion. The skin overlying the permacath was closed in a similar manner. The permacath was then sutured into place using 2-0 nylon in a simple interrupted fashion. skin glue was applied as a topical dressing. This was allowed to dry. Patient was awakened from anesthesia and transferred via her cart to the recovery room in stable condition. All needle, sponge, and instrument counts were correct per the operating personnel x2 counts.
--- NOTE | 2023-10-14 12:00 | ANE.PACU2 ---
Inpatient post-anesthesia follow up: Airway intact: Yes Vital signs: Temperature 97.8 F Pulse Rate 96 Respiratory Rate 19 Blood Pressure 114/76 Pulse Oximetry 97 Oxygen Delivery Me thod Room Air Oxygen Flow Rate 2 Fraction of Inspir ed Oxygen Hydration adequate: Yes Nausea and vomiting: No Pain level: 1 Mental status: Baseline
--- NOTE | 2023-10-14 12:12 | PC.NURSE ---
Pt arrived back to the unit after permacath placement to R chest. Dressing is dry and intact, no complaints of pain at this time, VSS.
--- NOTE | 2023-10-14 12:14 | PC.NURSE ---
1130 - pt to pacu - this nurse noted left ac IV to have scattered areas of bruising - flushed x2 per this nurse - no firmness noted - report to floor nurse Abbie at bedside
--- NOTE | 2023-10-14 12:22 | PM.PN ---
Subjective Subjective: no new complaints Medications: Reviewed: Yes Vitals/I&O/Wt Last Vital Signs Temp 97.8 F 10/14/23 12:00 Pulse 96 10/14/23 12:00 Resp 19 H 10/14/23 12:00 BP 114/76 10/14/23 12:00 Pulse Ox 97 10/14/23 12:00 O2 Del Method Room Air 10/14/23 12:00 O2 Flow Rate 2 10/14/23 11:55 10/13/23 10/14/23 10/14/23 22:59 06:59 14:59 Intake Total 120 / 340 150 / 150 Output Total 500 / 2350 Balance 120 / -1510 -500 / -2009 130 / 130 Weight last 48 hrs Weight 125.645 kg Weight 129.546 kg Physical Exam Narrative: awake , alert no distress S1S2 RRR per report Lungs + crackles per report + edema Data 10/14/23 04:46 10/14/23 04:46 Micro: Microbiology 10/11/23 20:00 Urine Culture - Final Urine,Clean Catch A&P Assessment and plan (1) Chronic kidney disease (CKD): Qualifiers: Chronic kidney disease stage: unspecified stage Qualified Code(s): N18.9 - Chronic kidney disease, unspecified (2) CHF (congestive heart failure): Qualifiers: Heart failure chronicity: chronic Heart failure type: unspecified Qualified Code(s): I50.9 - Heart failure, unspecified (3) DAYANNA (acute kidney injury): The patient is a 62-year-old gentleman with heart failure reduced EF of 10 to 15% status post ICD, diabetes, DVT, obesity question of sleep apnea with acute on chronic renal failure 1. Acute on chronic kidney disease stage III: Baseline creatinine in the 1.5-2.5 range. Patient now presented with volume overload/anasarca associated with mild hyperkalemia. Likely cardiorenal -on bumex -plan to intitate HD for volume management due to recuurent prior admissions for volume overload , tunnelled catheter placed -Strict intake and output, has Mathew catheter -Avoid nephrotoxins and contrast studies. 2. Hyperkalemia: Lokelma diet, diuretics and monitor 3. Metabolic acidosis: monitor 4. Volume overload with anasarca: Multifactorial in the setting of CHF with low ejection fraction and worsening renal insufficiency, diuretics as above and plan for dialysis 5. Question cirrhosis, likely cardiac, further workup in process 6. Pneumonia, management per primary team Patient evaluated using audiovisual cart. Time spent 40 minutes Attestations Medical Necessity Statement*: per [facility] Coding Level of Care Code Acute Code for Chg Fwd Diagnoses Chronic kidney disease (CKD) N18.9 Chronic kidney disease stage: unspecified stage CHF (congestive heart failure) I50.9 Heart failure chronicity: chronic Heart failure type: unspecified DAYANNA (acute kidney injury) N17.9
[2023-10-14] MEDS: insulin lispro 100 unit/1 mL SUBCUT ×2 (18:18→21:40)
[2023-10-14 18:23] LABS: Glucose Point of Care 91 mg/dL (70-110)
--- NOTE | 2023-10-14 19:21 | PC.HD ---
RIJ HD cath inserted today, area between cath insertion site and neck dressing bruised and purple, quarter size red area visible just below neck gauze and extending under it. Pencil eraser sized shadow of serousanguinous drainage to gauze under tegaderm did not extend over the course of treatment. Catheter worked well and pt tolerated initial HD treatment well.
[2023-10-14 21:03] LABS: Glucose Point of Care 163 mg/dL (70-110)
[2023-10-14] MEDS: HYDROcodone-acetaminophen 7.5-325 mg Tablet 1 TAB PO (21:42)
[2023-10-15] VITALS (10 sets, daily range): BP systolic 111–142; BP diastolic 51–94; PULSE 79–97; RESP 16–18; TEMP 36.5–37.3; O2SAT 90–99
[2023-10-15 05:30] LABS: Basophils % 0.2 %; Eosinophils % 0.4 %; Hematocrit 38.6 % (37-53); Lymphocytes # 1.2 10^3/uL (0.8-4.8); Lymphocytes % 12.2 %; Mean Corpuscular HGB Conc 30.1 g/dL (30-55); Mean Corpuscular Hemoglobin 25.2 pg (27-33); Mean Corpuscular Volume 83.7 fl (82-101); Mean Platelet Volume 9.5 fL (7.4-10.4); Neutrophils # 7.77 10^3/uL (1.8-7.7); Neutrophils % 76.7 %; Nucleated Red Blood Cells % 0.2 %; Platelet Count 246 10^3/cmm (157-399); Red Blood Count 4.61 10^6/uL (3.85-5.65); Red Cell Distribution Width 19.8 % (12.1-15.1); White Blood Count 10.13 10^3/uL (3.29-11.43)
[2023-10-15 06:01] LABS: Anion Gap 15.9 (5-19); Blood Urea Nitrogen 45 mg/dL (8-23); Calcium 8.6 mg/dL (8.5-10.5); Carbon Dioxide 26 mmol/L (22-29); Chloride 98 mmol/L (98-107); Creatinine Clr Calc Pharmacy 57.4037; Glomerular Filtration Rate 38.3 mL/min (90-130); Glucose 197 mg/dL (65-115); Osmolality Calculated 299 mOsm/kg (285-295); Potassium 3.9 mmol/L (3.5-5.1); Sodium 136 mmol/L (136-145)
[2023-10-15 06:23] LABS: Glucose Point of Care 182 mg/dL (70-110)
[2023-10-15] MEDS: citalopram 20 mg Tablet PO (08:56)
[2023-10-15] MEDS: midodrine 5 mg TABLET PO ×3 (08:56→20:09)
[2023-10-15] MEDS: allopurinol 100 mg Tablet PO (08:56)
[2023-10-15] MEDS: amiodarone 200 mg Tablet PO (08:57)
[2023-10-15] MEDS: doxycycline 100 mg Tablet PO ×2 (08:57→18:45)
[2023-10-15] MEDS: pantoprazole DR 40 mg Tablet PO (08:57)
[2023-10-15] MEDS: bumetanide 1 mg Tablet 2 MG PO ×3 (08:57→20:09)
[2023-10-15] MEDS: sodium bicarbonate 650 mg Tablet 1300 MG PO (08:57)
[2023-10-15] MEDS: insulin glargine 100 units/1 mL 20 UNIT SUBCUT (09:04)
--- NOTE | 2023-10-15 09:26 | P.PN_ITS ---
Subjective 2 Subjective: Overnight patient had visual hallucination Has history of sleep apnea does not want to use CPAP Uses 2 to 3 L of oxygen This morning no such symptoms As per nephro plan for dialysis tomorrow Patient is still waiting for chair time Vitals/I&O/Wt Last Vital Signs Temp 98.3 F 10/15/23 07:38 Pulse 96 10/15/23 07:38 Resp 16 10/15/23 07:38 BP 112/81 10/15/23 07:38 Pulse Ox 90 10/15/23 07:38 O2 Del Method Room Air 10/15/23 07:38 O2 Flow Rate 3 10/15/23 00:00 10/14/23 10/15/23 10/15/23 22:59 06:59 14:59 Intake Total 500 / 739.5 Output Total 3271 / 3291 300 / 3591 Balance -2771 / -2551.5 -300 / -2851.5 Weight last 48 hrs Weight 128.593 kg Weight 129.5 kg Weight 125.645 kg Physical Exam 2 Narrative: Still signs of volume overload Pleasant cooperative GCS 15 Awake and alert Nonfocal neuroexam No active sign of stroke Pleasant and cooperative Currently on 2 L at the bedside Patient is not hallucinating at the time of evaluation Pleasant and cooperative and awake and alert Data 10/15/23 04:56 10/15/23 04:56 A&P Assessment and plan (1) CHF (congestive heart failure): Qualifiers: Heart failure chronicity: chronic Heart failure type: unspecified Qualified Code(s): I50.9 - Heart failure, unspecified (2) S/P ICD (internal cardiac defibrillator) procedure: (3) Anticoagulation adequate with anticoagulant therapy: (4) Ascites: Qualifiers: Ascites type: other type Qualified Code(s): R18.8 - Other ascites (5) Chronic kidney disease (CKD): Qualifiers: Chronic kidney disease stage: unspecified stage Qualified Code(s): N 18.9 - Chronic kidney disease, unspecified (6) Pneumonia: (7) NAKUL (obstructive sleep apnea): (8) Anasarca: (9) Hypervolemia: Plan Status post hemodialysis tunneled dialysis catheter placement 10/13 Plan to start dialysis 10/15 Patient's creatinine is improving however still showing signs of hypervolemia Acidosis improved Mathew catheter in place continue Bumex as well Patient will be discharged likely in next 24 hours once we have chair time for him Patient has sleep apnea uses oxygen only does not want to use CPAP I do not see any sign of stroke He is DNR/DNI I have reduced the dose of insulin because of worsening of kidney function For A-fib he may resume amiodarone resume anticoagulating agent now Attestations 2 Medical Necessity Statement*: Discharge in next 24 hours Diagnoses CHF (congestive heart failure) I50.9 Heart failure chronicity: chronic Heart failure type: unspecified S/P ICD (internal cardiac defibrillator) procedure Z95.810 Anticoagulation adequate with anticoagulant therapy Z79.01 Ascites R18.8 Ascites type: other type Chronic kidney disease (CKD) N18.9 Chronic kidney disease stage: unspecified stage Pneumonia J18.9 NAKUL (obstructive sleep apnea) G47.33 Anasarca R60.1 Hypervolemia E87.70
[2023-10-15 10:38] LABS: Glucose Point of Care 149 mg/dL (70-110)
--- NOTE | 2023-10-15 11:05 | PM.PN ---
Subjective Subjective: feels OK Medications: Reviewed: Yes Vitals/I&O/Wt Last Vital Signs Temp 98.3 F 10/15/23 07:38 Pulse 96 10/15/23 07:38 Resp 16 10/15/23 07:38 BP 112/81 10/15/23 07:38 Pulse Ox 90 10/15/23 07:38 O2 Del Method Room Air 10/15/23 07:38 O2 Flow Rate 3 10/15/23 00:00 10/14/23 10/15/23 10/15/23 22:59 06:59 14:59 Intake Total 500 / 739.5 Output Total 3271 / 3291 300 / 3591 Balance -2771 / -2551.5 -300 / -2851.5 Weight last 48 hrs Weight 128.593 kg Weight 129.5 kg Weight 125.645 kg Physical Exam Narrative: awake , alert no distress S1S2 RRR per report Lungs + crackles per report + edema Data 10/15/23 04:56 10/15/23 04:56 A&P Assessment and plan (1) Chronic kidney disease (CKD): Qualifiers: Chronic kidney disease stage: unspecified stage Qualified Code(s): N18.9 - Chronic kidney disease, unspecified (2) CHF (congestive heart failure): Qualifiers: Heart failure chronicity: chronic Heart failure type: unspecified Qualified Code(s): I50.9 - Heart failure, unspecified (3) DAYANNA (acute kidney injury): The patient is a 62-year-old gentleman with heart failure reduced EF of 10 to 15% status post ICD, diabetes, DVT, obesity question of sleep apnea with acute on chronic renal failure 1. Acute on chronic kidney disease stage III: Baseline creatinine in the 1.5-2.5 range. Patient now presented with volume overload/anasarca associated with mild hyperkalemia. Likely cardiorenal - intitated HD for volume management due to recuurent prior admissions for volume overload , tunnelled catheter placed , s/p HD yesterday , next HD tomororw -Strict intake and output, has Mathew catheter -Avoid nephrotoxins and contrast studies. 2. Hyperkalemia: Lokelma diet, diuretics and monitor 3. Metabolic acidosis: monitor 4. Volume overload with anasarca: Multifactorial in the setting of CHF with low ejection fraction and worsening renal insufficiency, diuretics as above and plan for dialysis 5. Question cirrhosis, likely cardiac, further workup in process 6. Pneumonia, management per primary team Patient evaluated using audiovisual cart. Time spent 40 minutes Attestations Medical Necessity Statement*: per [facility] Coding Level of Care Code Acute Code for Chg Fwd Diagnoses Chronic kidney disease (CKD) N18.9 Chronic kidney disease stage: unspecified stage CHF (congestive heart failure) I50.9 Heart failure chronicity: chronic Heart failure type: unspecified DAYANNA (acute kidney injury) N17.9
[2023-10-15] MEDS: HYDROcodone-acetaminophen 7.5-325 mg Tablet 1 TAB PO ×2 (14:37→20:09)
--- NOTE | 2023-10-15 16:20 | P.PN_ITS ---
Subjective 2 Subjective: Patient seen and examined. Denies any pain after Vitals/I&O/Wt Last Vital Signs Temp 97.4 F L 10/16/23 07:31 Pulse 74 10/16/23 07:31 Resp 16 10/16/23 07:31 BP 129/89 10/16/23 07:31 Pulse Ox 97 10/16/23 07:31 O2 Del Method Nasal Cannula 10/16/23 08:09 O2 Flow Rate 3.5 10/15/23 20:47 10/15/23 10/16/23 10/16/23 22:59 06:59 14:59 Intake Total 560 / 560 0 / 560 Output Total 3394 / 3394 150 / 3544 Balance -2834 / -2834 -150 / -2984 Weight last 48 hrs Weight 276 lb 1.6 oz Weight 278 lb 10.629 oz Weight 283 lb 8 oz Weight 285 lb 7.978 oz Physical Exam 2 Narrative: General: No acute distress, awake alert and oriented x 3 Skin: PermCath insertion site without erythema or exudate, nontender Data 10/15/23 04:56 10/16/23 04:45 A&P Assessment and plan (1) Chronic kidney disease (CKD): Qualifiers: Chronic kidney disease stage: unspecified stage Qualified Code(s): N 18.9 - Chronic kidney disease, unspecified (2) DAYANNA (acute kidney injury): Plan Status post permacath placement Catheter usage per nephrology, no further surgical intervention Medical management per hospitalist Attestations 2 Medical Necessity Statement*: Per hospitalist Coding Level of Care Code 46358 Diagnoses Chronic kidney disease (CKD) N18.9 Chronic kidney disease stage: unspecified stage DAYANNA (acute kidney injury) N17.9
[2023-10-15] MEDS: heparin, porcine 1,000 unit/mL INJ 10 mL 10000 UNIT HE (16:43)
[2023-10-15] MEDS: heparin, porcine 1,000 unit/mL INJ 10 mL 10000 UNIT INTRACATH (16:44)
[2023-10-15 16:45] LABS: Glucose Point of Care 149 mg/dL (70-110)
--- NOTE | 2023-10-15 16:51 | PC.HD ---
Purple eccchymosis to cath insertion site extending up under neck gauze under tegaderm, red area noted yesterday below neck dressing now purple, no s/s infection.
[2023-10-15] MEDS: sodium bicarbonate 650 mg Tablet PO (18:45)
[2023-10-15] MEDS: carvedilol 3.125 mg Tablet PO (18:45)
[2023-10-16] VITALS: BP 95/68; PULSE 79; RESP 18; TEMP 36.4; O2SAT 92
[2023-10-16 04:00] VITALS: BP 134/82; PULSE 82; RESP 18; TEMP 36.4; O2SAT 98
[2023-10-16 05:38] LABS: Blood Urea Nitrogen 44 mg/dL (8-23); Calcium 8.8 mg/dL (8.5-10.5); Carbon Dioxide 26 mmol/L (22-29); Chloride 100 mmol/L (98-107); Creatinine Clr Calc Pharmacy 53.6269; Glucose 89 mg/dL (65-115); Osmolality Calculated 293 mOsm/kg (285-295); Sodium 136 mmol/L (136-145)
[2023-10-16 06:31] LABS: Glucose Point of Care 89 mg/dL (70-110)
[2023-10-16 07:31] VITALS: BP 129/89; PULSE 74; RESP 16; TEMP 36.3; O2SAT 97
[2023-10-16] MEDS: pantoprazole DR 40 mg Tablet PO (09:01)
[2023-10-16] MEDS: doxycycline 100 mg Tablet PO (09:01)
[2023-10-16] MEDS: carvedilol 3.125 mg Tablet PO (09:01)
[2023-10-16] MEDS: citalopram 20 mg Tablet PO (09:01)
[2023-10-16] MEDS: bumetanide 1 mg Tablet 2 MG PO (09:02)
[2023-10-16] MEDS: amiodarone 200 mg Tablet PO (09:02)
[2023-10-16] MEDS: midodrine 5 mg TABLET PO (09:02)
[2023-10-16] MEDS: sodium bicarbonate 650 mg Tablet PO (09:02)
[2023-10-16] MEDS: allopurinol 100 mg Tablet PO (09:02)
[2023-10-16] MEDS: rivaroxaban 10 mg Tablet 20 MG PO (09:02)
--- NOTE | 2023-10-16 09:19 | P.DS_ITS ---
Discharge Providers Date of Admission: 10/12/23 00:15 Date of Discharge: October 16, 2023 Attending Provider at Admission: Rosendo Olmos MD Attending Provider at Discharge: Mayra Piña MD Primary Care Provider: Rochelle Rodriges MD Diagnoses at Discharge Discharge Diagnosis (1) Chronic kidney disease (CKD): Status: Chronic Qualifiers: Chronic kidney disease stage: unspecified stage Qualified Code(s): N18.9 - Chronic kidney disease, unspecified (2) CHF (congestive heart failure): Status: Acute Qualifiers: Heart failure chronicity: chronic Heart failure type: unspecified Qualified Code(s): I50.9 - Heart failure, unspecified (3) DAYANNA (acute kidney injury): Status: Resolved Reason for Visit Reason for Visit: [facility] Course Hospital Course 62 male with history of insulin-dependent diabetes, chronic kidney disease, diastolic CHF, A-fib, chronic anticoagulation, has had multiple admissions secondary to persistent hypervolemia, he was not responding well to Lasix, he was put on Bumex drip and then p.o. regimen which did not improve his hypervolemic state. His potassium and bicarb remained stable. Nephrology was consulted. Patient did not want to wait few more months to get on dialysis, during this admission General Surgery was consulted for permacath placement, p atient visual hallucination, sleep cycle, hypervolemic state significantly improved after 2 sessions of dialysis in the hospital. We have reduced the dose of insulin because of his end-stage renal disease. Patient has sleep apnea and does not want to use CPAP at home, I did tell the patient and his family that his visual hallucination would not get better unless he starts using CPAP. He is wanting to use 4 to 5 L of oxygen at nighttime and 3 L in the daytime. Patient has changes CODE STATUS to DNR/DNI. Physical Exam Narrative: A-fib without RVR Hypervolemic state improving Currently on 2 L Present on Hypervolemic state significantly improved skin wrinkling noted Discharge Data Studies Completed and Pending Completed Studies During Hospitalization Category Date Time Status CT kidney stone [id number] Stat Cat Scan 10/11/23 20:38 Completed CXRP [XR chest 1V portable [id number]] Routine Exams 10/14/23 11:11 Completed US abdomen lmt fluid [id number] Routine Ultrasound 10/13/23 06:00 Completed Pending at discharge Category Date Time Status Amylase, Peritoneal Fluid Routine Lab 10/12/23 05:59 Ordered Amylase, Pleural Fluid Routine Lab 10/12/23 05:59 Ordered Albumin Body Fluid Routine Lab 10/12/23 05:59 Ordered Anaerobic Culture Routine Lab 10/12/23 05:59 Ordered Body Fluid Analysis Routine Lab 10/12/23 05:59 Ordered Body Fluid Culture & GS Routine Lab 10/12/23 05:59 Ordered Body Fluid Specific [place] Routine Lab 10/12/23 05:59 Ordered Cholesterol Body Fluid Routine Lab 10/12/23 05:59 Ordered Cyto Order Verification Routine Lab 10/12/23 05:59 Ordered Fluid Alkaline Phos. Routine Lab 10/12/23 05:59 Ordered Glucose Body Fluid Routine Lab 10/12/23 05:59 Ordered LDH Body Fluid Routine Lab 10/12/23 05:59 Ordered Mycobacteria, Culture w/Fluor Routine Lab 10/12/23 05:59 Ordered Total Protein Body Fluid Routine Lab 10/12/23 05:59 Ordered Triglycerides Body Fluid Routine Lab 10/12/23 05:59 Ordered Uric Acid Body Fluid Routine Lab 10/12/23 05:59 Ordered pH Body Fluid Routine Lab 10/12/23 05:59 Ordered Radiology Impressions Abdomen/Pelvis CT 10/11/23 20:38 IMPRESSION: 1. Kjmg-ao-rlioefbh loculated right pleural fluid collection. 2. Mild bibasilar pneumonia, oqaxu-oktxswl-rvuu-left. 3. Borderline to mild cardiomegaly. 4. Mathew balloon catheter in the urinary bladder. 5. Mild four-quadrant ascites versus other peritoneal fluid. 6. The peritoneal fluid measures 24-36 Hounsfield units suggesting hemoperitoneum versus vicarious excretion of iodine from recent imaging study versus other etiology. 7. Yamile mesentery sign with central mesenteric fat edema and extensive differential diagnosis including but not limited to pancreatitis, portal hypertension, infectious process, autoimmune/allergic process or neoplastic process. 8. Mild anasarca consistent with right heart failure versus hypoproteinemia versus renal failure. 9. Uniform urinary bladder wall thickening consistent with cystitis versus chronic outlet obstruction. ADDENDUM: 10/11/23 1280 History: No recent x-ray studies or cardiology studies with iodinated IV contrast. Possible urinary tract infection with white blood cells in the urine. Normal liver function tests. No leukocytosis or anemia on CBC. Discussion: The right pleural fluid collection measures 20 Hounsfield units. There could be high protein levels in the pleural fluid and peritoneal fluid creating increased density. THIS REPORT CONTAINS FINDINGS THAT MAY BE CRITICAL TO PATIENT CARE. The findings were verbally communicated via telephone conference with RANDALL CARSON at 10:51 PM CDT on 10/11/2023. The findings were acknowledged and understood. Abdomen Ultrasound 10/13/23 06:00 IMPRESSION: Ascites. C-Arm Fluoroscopy 10/14/23 09:51 IMPRESSION: Intraoperative imaging during dialysis catheter placement. Chest X-Ray 10/14/23 11:11 IMPRESSION: Central line in place with its tip in the right atrium. Laboratory Results WBC 10.13 10^3/uL (3.29-11.43) 10/15/23 04:56 RBC 4.61 10^6/uL (3.85-5.65) 10/15/23 04:56 Hgb 11.60 g/dL (11.27-16.99) 10/15/23 04:56 Hct 38.6 % (37-53) 10/15/23 04:56 MCV 83.7 fl (82-101) 10/15/23 04:56 MCH 25.2 pg (27-33) L 10/15/23 04:56 MCHC 30.1 g/dL (30-55) 10/15/23 04:56 RDW 19.8 % (12.1-15.1) H 10/15/23 04:56 Plt Count 246 10^3/cmm (157-399) 10/15/23 04:56 MPV 9.5 fL (7.4-10.4) 10/15/23 04:56 Neut % (Auto) 76.7 % 10/15/23 04:56 Lymph % (Auto) 12.2 % 10/15/23 04:56 Thayer % (Auto) 10.0 % 10/15/23 04:56 Eos % (Auto) 0.4 % 10/15/23 04:56 Baso % (Auto) 0.2 % 10/15/23 04:56 Neut # (Auto) 7.77 10^3/uL (1.8-7.7) H 10/15/23 04:56 Lymph # (Auto) 1.2 10^3/uL (0.8-4.8) 10/15/23 04:56 Thayer # (Auto) 1.0 10^3/uL (0.2-0.9) H 10/15/23 04:56 Eos # (Auto) 0.0 10^3/uL (0.0-0.8) 10/15/23 04:56 Baso # (Auto) 0.0 10^3/uL (0.0-0.1) 10/15/23 04:56 Nucleated RBC % (auto) 0.2 % 10/15/23 04:56 Nucleated RBCs # 0.0 /100WBC 10/15/23 04:56 Sodium 136 mmol/L (136-145) 10/16/23 04:45 Potassium 4.0 mmol/L (3.5-5.1) 10/16/23 04:45 Chloride 100 mmol/L (98-107) 10/16/23 04:45 Carbon Dioxide 26 mmol/L (22-29) 10/16/23 04:45 Anion Gap 14.0 (5-19) 10/16/23 04:45 BUN 44 mg/dL (8-23) H 10/16/23 04:45 Creatinine 1.9 mg/dL (0.7-1.2) H 10/16/23 04:45 GFR Calculation 36.0 mL/min (90-130) L 10/16/23 04:45 Glucose 89 mg/dL (65-115) 10/16/23 04:45 POC Glucose 89 mg/dL (70-110) 10/16/23 06:20 Calculated Osmolality 293 mOsm/kg (285-295) 10/16/23 04:45 Calcium 8.8 mg/dL (8.5-10.5) 10/16/23 04:45 Phosphorus 3.9 mg/dL (2.5-4.5) 10/12/23 03:38 Magnesium 2.3 mg/dL (1.7-2.3) 10/12/23 03:38 Total Bilirubin 1.2 mg/dL (0.15-1.2) 10/13/23 04:06 AST 153 U/L (0-40) H 10/13/23 04:06 ALT 63 U/L (0-41) H 10/13/23 04:06 Alkaline Phosphatase 224 U/L (40-130) H 10/13/23 04:06 Lactate Dehydrogenase 422 U/L (135-225) H 10/13/23 04:06 Total Protein 6.6 g/dL (6.6-8.7) 10/13/23 04:06 Albumin 2.9 g/dL (3.5-5.2) L 10/13/23 04:06 Globulin 3.7 g/dL (1.3-4.6) 10/13/23 04:06 Urine Color Yellow (Yellow) 10/11/23 20:00 Urine Appearance Cloudy (CLEAR) A 10/11/23 20:00 Urine pH 5.5 (5-7) 10/11/23 20:00 Ur Specific [place] 1.019 (1.005-1.030) 10/11/23 20:00 Urine Protein 3+ (Negative) A 10/11/23 20:00 Urine Glucose (UA) 3+ (Normal) H 10/11/23 20:00 Urine Ketones Negative (Negative) 10/11/23 20:00 Urine Blood 2+ (Negative) A 10/11/23 20:00 Urine Nitrate Negative (Negative) 10/11/23 20:00 Urine Bilirubin Negative (Negative) 10/11/23 20:00 Urine Urobilinogen 1.0 mg/dL (Negative) 10/11/23 20:00 Ur Leukocyte Esterase Trace (Negative) A 10/11/23 20:00 Urine RBC 21-50 /hpf (0-2) H 10/11/23 20:00 Urine WBC 51-100 /hpf (0-5) H 10/11/23 20:00 Ur Squamous Epith Cells 11-20 /hpf (0-5) 10/11/23 20:00 Amorphous Sediment Not Reportable 10/11/23 20:00 Urine Bacteria Trace /hpf (NONE) 10/11/23 20:00 Hyaline Casts 16.53 /lpf 10/11/23 20:00 Urine Yeast 2+ /hpf H 10/11/23 20:00 Hep Bs Antigen Non-reactive (Nonreactive) 10/13/23 04:06 Hep Bs Antibody 13.7 (11.5-1000) 10/13/23 04:06 Hep B Core Total Ab Non-reactive (Nonreactive) 10/13/23 04:06 Vitals Last Vital Signs Temp 97.4 F L 10/16/23 07:31 Pulse 74 10/16/23 07:31 Resp 16 10/16/23 07:31 BP 129/89 10/16/23 07:31 Pulse Ox 97 10/16/23 07:31 O2 Del Method Nasal Cannula 10/16/23 08:09 O2 Flow Rate 3.5 10/15/23 20:47 Discharge Plan Discharge Patient Disposition: Home Condition: Stable Prescriptions: New sevelamer carbonate [Renvela] 800 mg tablet 800 mg PO BID Qty: 60 3RF Rx Instructions: must administer with a meal/food sodium bicarbonate 650 mg Tablet 650 mg PO BEDTIME Qty: 60 2RF Continued citalopram 20 mg tablet 20 mg PO DAILY allopurinol 100 mg tablet 100 mg PO DAILY Xarelto 20 mg tablet 20 mg PO DAILY terazosin 1 mg capsule 1 mg PO BEDTIME amiodarone 200 mg tablet 200 mg PO DAILY Qty: 90 1RF omeprazole 40 mg capsule,delayed release(DR/EC) 40 mg PO DAILY insulin lispro [Humalog U-100 Insulin] 100 unit/mL Solution See Rx Instructions .ROUTE .COMPLEX Qty: 10 0RF Rx Instructions: Glucose: 141-180 - 6 units 181-220 - 8 221-260 - 10 261-300 - 12 301-350 - 14 351-400 - 16 >400 - 18 units midodrine 5 mg Tablet 5 mg PO TID Qty: 90 0RF atorvastatin 80 mg tablet 40 mg PO QPM Qty: 1 0RF albuterol sulfate 0.63 mg/3 mL solution for nebulization 0.63 mg inhalation .Q4-6H PRN (Reason: Shortness Of Breath) carvedilol 3.125 mg tablet 3.125 mg PO BID ergocalciferol (vitamin D2) 1,250 mcg (50,000 unit) capsule 50,000 unit PO Q7D Rx Instructions: on Friday bumetanide 1 mg Tablet 1 mg PO DAILY Qty: 90 0RF polyethylene glycol 3350 17 gram powder in packet 17 g PO BID PRN (Reason: Constipation) Changed Lantus U-100 Insulin 100 unit/mL solution 15 unit SUBCUT BID Qty: 15 0RF Discontinued aspirin 81 mg Tablet,Delayed Release (Dr/Ec) 81 mg PO DAILY potassium chloride 20 mEq tablet extended release 20 meq PO DAILY Jardiance 25 mg Tablet 25 mg PO QAM levofloxacin 750 mg tablet 750 mg PO Q48H 7 Days Qty: 4 0RF Discharge Orders: Discharge Order (Routine); Ordered 10/16/23 Ordered By: Mayra Piña Referrals: [facility] [Outside] - 10/17/23 6:05 am (You need to arrive @ 0605 for check in and you chair time will be 0625. ) Rochelle Rodriges MD [Primary Care Provider] - Discharge Diet: Diabetic Discharge Activity: Increase activity as tolerated Patient Instructions: Dialysis Diet (DC), Acute Wound Care (DC), Hemodialysis (DC), Opioid Safety, Post Anesthesia Care Discharge Attestations Time Spent in Discharge Care*: greater than 30 min Quality Metrics Clinical Quality Measures [ No reported AMI, CVA or VTE this stay] Coding Level of Care Code Acute Code for Chg Fwd Diagnoses Chronic kidney disease (CKD) N18.9 Chronic kidney disease stage: unspecified stage CHF (congestive heart failure) I50.9 Heart failure chronicity: chronic Heart failure type: unspecified DAYANNA (acute kidney injury) N17.9
[2023-10-16] MEDS: HYDROcodone-acetaminophen 7.5-325 mg Tablet 1 TAB PO (09:23)
--- NOTE | 2023-10-16 10:44 | P.PN_ITS ---
Subjective 2 Subjective: s/p HD yesterday Medications: Reviewed: Yes Vitals/I&O/Wt Last Vital Signs Temp 97.4 F L 10/16/23 07:31 Pulse 74 10/16/23 07:31 Resp 16 10/16/23 07:31 BP 129/89 10/16/23 07:31 Pulse Ox 97 10/16/23 07:31 O2 Del Method Nasal Cannula 10/16/23 08:09 O2 Flow Rate 3.5 10/15/23 20:47 10/15/23 10/16/23 10/16/23 22:59 06:59 14:59 Intake Total 560 / 560 0 / 560 360 / 360 Output Total 3394 / 3394 150 / 3544 Balance -2834 / -2834 -150 / -2984 360 / 360 Weight last 48 hrs Weight 125.237 kg Weight 126.4 kg Weight 128.593 kg Weight 129.5 kg Physical Exam 2 Narrative: awake , alert no distress S1S2 RRR per report Lungs + crackles per report + edema Data 10/15/23 04:56 10/16/23 04:45 A&P Assessment and plan (1) Chronic kidney disease (CKD): Qualifiers: Chronic kidney disease stage: unspecified stage Qualified Code(s): N 18.9 - Chronic kidney disease, unspecified (2) CHF (congestive heart failure): Qualifiers: Heart failure chronicity: chronic Heart failure type: unspecified Qualified Code(s): I50.9 - Heart failure, unspecified (3) DAYANNA (acute kidney injury): The patient is a 62-year-old gentleman with heart failure reduced EF of 10 to 15% status post ICD, diabetes, DVT, obesity question of sleep apnea with acute on chronic renal failure 1. Acute on chronic kidney disease stage III: Baseline creatinine in the 1.5- 2.5 range. Patient now presented with volume overload/anasarca associated with mild hyperkalemia. Likely cardiorenal - intitated HD for volume management due to recuurent prior admissions for volume overload , tunnelled catheter placed , s/p HD yesterday , -Strict intake and output, has Mathew catheter -Avoid nephrotoxins and contrast studies. 2. Hyperkalemia: Lokw K diet 3. Metabolic acidosis: monitor 4. Volume overload with anasarca: Multifactorial in the setting of CHF with low ejection fraction and worsening renal insufficiency, diuretics as above and plan for dialysis 5. Question cirrhosis, likely cardiac, further workup in process 6. Pneumonia, management per primary team Patient evaluated using audiovisual cart. Time spent 40 minutes Attestations 2 Medical Necessity Statement*: per medicine Coding Level of Care Code Acute Code for Chg Fwd Diagnoses Chronic kidney disease (CKD) N18.9 Chronic kidney disease stage: unspecified stage CHF (congestive heart failure) I50.9 Heart failure chronicity: chronic Heart failure type: unspecified DAYANNA (acute kidney injury) N17.9
[2023-10-16 10:49] LABS: Glucose Point of Care 132 mg/dL (70-110)
[2023-10-16 11:19] VITALS: BP 129/89; PULSE 74; RESP 16; TEMP 36.3; O2SAT 97
== END 2023-10-16 11:00 | disposition home or self-care (01) ==
LOC: ER 23:08 → MEDSURG 10-12 00:18 → ICU 10-12 13:46 → MEDSURG 10-13 14:43
PROVIDERS: Surgery; Admitting Provider Internal Medicine; Emergency Provider Physician Assistant; PCP Internal Medicine; Visit Provider Internal Medicine
PROC: (CPT 36561; principal; 2023-10-14 13:25)
DX: I13.2 Hypertensive heart and chronic kidney disease with heart failure and with stage 5 chronic kidney disease, or end stage renal disease (principal); E11.22 Type 2 diabetes mellitus with diabetic chronic kidney disease; I50.32 Chronic diastolic (congestive) heart failure; N18.32 Chronic kidney disease, stage 3b; N17.9 Acute kidney failure, unspecified; Z79.4 Long term (current) use of insulin; J18.9 Pneumonia, unspecified organism; J91.8 Pleural effusion in other conditions classified elsewhere; N30.90 Cystitis, unspecified without hematuria; R60.1 Generalized edema; I48.91 Unspecified atrial fibrillation; Z99.81 Dependence on supplemental oxygen; Z95.810 Presence of automatic (implantable) cardiac defibrillator; E87.5 Hyperkalemia; E87.20 Acidosis, unspecified; J96.11 Chronic respiratory failure with hypoxia; G47.33 Obstructive sleep apnea (adult) (pediatric); Z79.82 Long term (current) use of aspirin; E87.21 Acute metabolic acidosis; E87.70 Fluid overload, unspecified; R44.1 Visual hallucinations; Z66 Do not resuscitate
CPT/HCPCS: 36561; 36415; 36416; 51701; 51798; 71045; 74176; 76000; 76705; 77001; 80048; 80053; 81003; 81015; 82962; 83615; 83735; 84100; 85025; 86705; 86706; 87086; 87340; 90935; 96365; 96366; 96372; 96374; 96375; 96376; 99285; G0378; J0456; J0690; J0696; J1644; J1815; J2250; J2270; J3490; J7030; J7050; Q0162